=== PATIENT | male | born 1945 | race Caucasian/White ===

== ENCOUNTER → 2019-11-27 10:24 | Outpatient (BNVA) | payer MEDICAID, SELFPAY | PROVIDERS: Family Provider Internal Medicine; Visit Provider Nurse Practitioner Psychiatric/Mental Health | DX: F32.9 Major depressive disorder, single episode, unspecified (principal); G31.09 Other frontotemporal neurocognitive disorder; F02.80 Dementia in other diseases classified elsewhere, unspecified severity, without behavioral disturbance, psychotic disturbance, mood disturbance, and anxiety; J44.9 Chronic obstructive pulmonary disease, unspecified | CPT/HCPCS: 99214 ==

== ENCOUNTER → 2020-03-02 07:57 | Outpatient (BNVA) | payer MEDICAID, SELFPAY | PROVIDERS: Family Provider Internal Medicine; Visit Provider Nurse Practitioner Psychiatric/Mental Health | DX: F32.5 Major depressive disorder, single episode, in full remission (principal); F02.80 Dementia in other diseases classified elsewhere, unspecified severity, without behavioral disturbance, psychotic disturbance, mood disturbance, and anxiety; G31.09 Other frontotemporal neurocognitive disorder | CPT/HCPCS: 99212 ==

== ENCOUNTER 2020-05-11 12:33 | Outpatient (CLI) | payer MEDICAID, SELFPAY ==
--- NOTE | 2020-05-11 12:42 | CT_ITS ---
WS: [id number] CT PELVIS WITH CONTRAST HISTORY: BENIGN PROSTATIC HYPERPLASIA WITHOUT LOWER URINARY TRACT SYMPTOMS. TECHNIQUE: Contiguous imaging is performed of the pelvis with contrast. Coronal and sagittal reformat s are reviewed. All CT scans at [facility] use at least one of these dose optimization te chniques: automated exposure control; mA and/or kV adjustment per patient size (includes targeted exa ms where dose is matched to clinical indication); or iterative reconstruction. DLP: 1602.71 mGycm COMPARISON: 07/08/2016 Lower poles of each kidney are negative for perinephric stranding. Distal ureters are not dilated. Nu merous diverticula in the descending and sigmoid colon without acute inflammation. No free fluid or a denopathy in the pelvis. Prostate gland is mildly enlarged and heterogeneous encroaching into the urinary bladder. Prostate gl and measures 6.0 x 5.2 x 4.9 cm. Other than the encroaching prostate gland no bladder mass is identif ied. There is a large lipoma in the soft tissues of the RIGHT gluteal region. No osteoblastic or oste olytic bone disease. CT/CT pelvis w con* [id number] IMPRESSION: 1. Prostate gland enlargement encroaching into the urinary bladder. 2. No bladder mass. 3. No renal obstruction. 4. Sigmoid diverticulosis without acute diverticulitis.
[2020-05-11 14:22] LABS: Blood Urea Nitrogen 14 mg/dL (8-23)
[2020-05-11] MEDS: iohexol 300 mg/mL 100 mL Btl IV (14:33)
== END 2020-05-11 12:34 | disposition home or self-care (01) ==
LOC: RADWPI 12:38
PROVIDERS: Family Provider Internal Medicine; PCP Internal Medicine; Visit Provider Internal Medicine
DX: N40.0 Benign prostatic hyperplasia without lower urinary tract symptoms (principal); K57.30 Diverticulosis of large intestine without perforation or abscess without bleeding
CPT/HCPCS: 72193; 82565; 84520; Q9967

== ENCOUNTER → 2020-06-01 08:10 | Outpatient (BNVA) | payer MEDICAID, SELFPAY | PROVIDERS: Family Provider Internal Medicine; PCP Internal Medicine; Visit Provider Nurse Practitioner Psychiatric/Mental Health | DX: F02.80 Dementia in other diseases classified elsewhere, unspecified severity, without behavioral disturbance, psychotic disturbance, mood disturbance, and anxiety (principal); G31.09 Other frontotemporal neurocognitive disorder; F32.5 Major depressive disorder, single episode, in full remission | CPT/HCPCS: G0463 ==

== ENCOUNTER 2020-12-08 10:09 | Emergency (ER) | payer MEDICAID, SELFPAY ==
[2020-12-08 10:09] VITALS: BP 163/95; PULSE 71; RESP 18; TEMP 36.7; O2SAT 97; BMI 25.8
--- NOTE | 2020-12-08 10:16 | XR_ITS ---
WS: [id number] Exam: XR chest 1V portable [id number] Date/Time of Exam: 12/08/2020 10:37 AM Reason For Exam: AMS Comparison 01/06/2019. There are patchy ill-defined infiltrates throughout both lungs suggesting pneumonia. Cardiomediastina l structures are unremarkable for portable technique. Bilateral apical pleural thickening. No pleural effusion or pneumothorax. XR/XR chest 1V portable [id number] IMPRESSION: 1. Ill-defined patchy infiltrates throughout both lungs consistent with pneumon ia.
--- NOTE | 2020-12-08 10:16 | CT_ITS ---
WS: [id number] CT HEAD TECHNIQUE: Noncontrast CT of the head obtained from the skullbase to the vertex. CLINICAL INFORMATION: Symptoms of Acute Stroke COMPARISON: None. DLP: 1175.[address] scans at [facility] use at least one of these dose optimization techniques: automat ed exposure control; mA and/or kV adjustment per patient size (includes targeted exams where dose is matched to clinical indication); or iterative reconstruction. FINDINGS: No evidence of intracranial hemorrhage or mass effect. Ventricular system and basal cisterns are lowry nt. Mild small vessel changes with mild parenchymal volume loss. No extra-axial fluid collections. No evidence of mass or mass effect. Normal kelly-white differentiation. Benign basal ganglia calcificati ons. Paranasal sinuses and mastoid air cells are well aerated. .Normal visualized soft tissues. CT/CT head wo con* [id number] IMPRESSION: 1. No evidence of intracranial hemorrhage or mass effect. 2. Mild small vessel changes. Mild parenchymal volume loss. 3. No acute intracranial findings. Notified Jesus Guzman DO at 12/08/2020 10:55 AM.
--- NOTE | 2020-12-08 10:17 | ECG_ITS ---
[facility] Test Date: 2020-12-08 Pat Name: Ben Ochoa Department: Room: Gender: Male Neonatologist: : 1945 Requested By: Jesus Pittman Order Number: [id number] Brennon MD: RASHIDA BARRIGA Measurements Intervals [place] Rate: 69 P: 23 SD: 132 QRS: 11 QRSD: 99 T: 39 QT: 405 QTc: 435 Interpretive Statements SINUS RHYTHM MINIMAL VOLTAGE CRITERIA FOR LVH, CONSIDER NORMAL VARIANT [MEETS CRITERIA IN ONE OF: R(aVL), S(V1), R(V5), R(V5/V6)+S(V1)] Compared to ECG 01/06/2019 10:14:58 Incomplete right bundle-branch block no longer present Electronically Signed On 12-08-2020 20:07:51 SOCIAL SERVICES DIRECTOR by RASHIDA BARRIGA [id number] f
--- NOTE | 2020-12-08 10:21 | W.ED.GENADLT ---
HPI - General Adult General: Chief complaint: General Medical Stated complaint: IRREGULAR HEARTREATE Time Seen by Provider: 12/08/20 10:10 History of Present Illness: HPI narrative: 75-year-old male presents from intermediate with what he describes altered mental status. Some baseline dementia. He has not been as vocal. He had some slurring of speech. Patient denies any specific problems at this time denies any chest pain. Arrival here he is awake alert denies any chest pain or abdominal pain vital signs are normal. long-term paperwork reviewed. Onset (ago): hour(s) Relieving factors: none Exacerbating factors: none Associated symptoms: Reports confusion (Chronic baseline mild dementia); Deny chest pain, cough, diaphoresis, decreased appetite, dyspnea, fevers/chills, headache(s), malaise, nausea, rash, palpitations, seizures, short of breath, syncope, vomiting or weakness Treatments prior to arrival: none Review of Systems Const: Denies: malaise or diaphoresis ENMT: Denies: throat pain, ear or mastoid pain, nasal discharge or nasal congestion Card: Denies: chest pain, palpitations or syncope Resp: Denies: dyspnea GI: Denies: nausea or vomiting : Denies: flank pain, dysuria, urinary frequency or urinary urgency Skin/Breast: Denies: rash Neuro: Reports: confusion (Chronic baseline mild dementia); Denies: headache(s) PFS ED PFSH: Medical History COPD (chronic obstructive pulmonary disease) Dementia of frontal lobe type Major depressive disorder, single episode Major depressive disorder, single episode, in full remission Social History Smoking and tobacco status: never smoked Second hand smoke exposure: No Physical Exam Const: COMMON NORMALS: no acute distress GENERAL APPEARANCE: cooperative and comfortable HENMT: COMMON NORMALS: normocephalic, atraumatic and hearing grossly normal bilaterally HEAD & SCALP: normocephalic and atraumatic Eye: COMMON NORMALS: Equal, round and reactive pupils present, conjunctivae normal and no scleral icterus CONJUNCTIVA: Yes conjunctivae normal PUPIL: Yes Equal, round and reactive pupils present Neck/C-Spine: COMMON NORMALS: full ROM, no lymphadenopathy, supple and no JVD Lymph: LYMPHATIC: no lymphadenopathy noted and no lymphedema noted Resp: COMMON NORMALS: normal respiratory effort, No retractions, No use of accessory muscles and clear to auscultation bilaterally AUSCULTATION: clear to auscultation bilaterally Cardio: COMMON NORMALS: no JVD, regular rate, regular rhythm and No murmurs present (Cardio) RATE: regular rate RHYTHM: regular rhythm GI: COMMON NORMALS: Soft to palpation and No hepatosplenomegaly present AUSCULTATION: Yes normoactive bowel sounds PALPATION: Yes Soft to palpation, No Tenderness to palpation present (GI), No Guarding due to palpation present (GI) and Yes No hepatosplenomegaly present Extremity: COMMON NORMALS: normal to inspection, capillary refill normal, no clubbing, cyanosis or edema, no calf tenderness and no pedal edema Skin: COMMON NORMALS: no rashes or lesions noted GENERAL SKIN EXAM: no rashes or lesions noted Course Vital Signs: Vital signs: Vital Signs Temperature 98.1 F 12/08/20 10:09 Pulse Rate 83 12/08/20 12:25 Respiratory Rate 16 12/08/20 12:25 Blood Pressure 134/88 12/08/20 12:25 Pulse Oximetry 93 12/08/20 12:25 MDM - General Adult MDM Narrative: Medical decision making narrative: Chest x-ray suggestive of pneumonia. Some of it could be residual effect patient actually did have Covid back in July. He does not have a lot of respiratory symptoms at this time will cover him with some antibiotics. His troponins are negative neurologically is intact does not have any localizing findings we will discharge him back to the intermediate with a course of antibiotics. Lab Data: Labs: Lab Results 12/08/20 12/08/20 12/08/20 Range/Units 09:58 09:58 09:58 WBC 6.5 (4.0-10.0) 10^3/ uL RBC 4.92 (4.1-5.3) 10^6/u L Hgb 12.6 (11.7-16.6) g/dL Hct 40.0 L (42.0-52.0) % MCV 81.3 (80-94) fL MCH 25.6 L (28.0-34.0) pg MCHC 31.5 (30.0-36.0) g/dL RDW 13.2 (12.1-15.1) % Plt Count 192 (130-400) 10^3/c mm MPV 11.9 H (7.4-10.4) fL Neut % (Auto) 62.5 % Lymph % (Auto) 22.7 % [place] % (Auto) 12.0 % Eos % (Auto) 1.7 % Baso % (Auto) 0.8 % Neut # (Auto) 4.06 (1.8-7.7) 10^3/u L Lymph # (Auto) 1.5 (0.8-4.8) 10^3/u L [place] # (Auto) 0.8 (0.2-0.9) 10^3/u L Eos # (Auto) 0.1 (0.0-0.8) 10^3/u L Baso # (Auto) 0.1 (0.0-0.1) 10^3/u L Nucleated RBC % (a uto) 0 % Nucleated RBCs # 0.0 /100WBC PT 14.00 (12.1-14.9) SECO NDS INR 1.05 (0.8-1.2) Sodium 136 (136-145) mmol/L Potassium 3.7 (3.5-5.1) mmol/L Chloride 102 (98-107) mmol/L Carbon Dioxide 26 (22-29) mmol/L Anion Gap 11.7 (5-19) BUN 14 (8-23) mg/dL Creatinine 0.8 (0.7-1.2) mg/dL GFR Calculation Not Reportable Glucose 94 (65-115) mg/dL POC Glucose (70-110) mg/dL Calculated Osmolal ity 282 L (285-295) mOsm/k g Calcium 9.0 (8.5-10.5) mg/dL Total Bilirubin 0.3 (0.15-1.2) mg/dL AST 15 (0-40) U/L ALT 12 (0-41) U/L Alkaline Phosphata se 113 (40-130) IU/L Troponin T Baselin e (0-15) ng/L Troponin T 120 Min yocha dehe (0-15) ng/L Delta Troponin T (0-10) ABS# Total Protein 7.2 (6.6-8.7) g/dL Albumin 4.0 (3.5-5.2) g/dL Globulin 3.2 (1.3-4.6) g/dL Lipase 40 (13-60) U/L Urine Color (Yellow) Urine Appearance (CLEAR) Urine pH (5-7) Ur Specific Gravit y (1.005-1.030) Urine Protein (Negative) Urine Glucose (UA) (Normal) Urine Ketones (Negative) Urine Blood (Negative) Urine Nitrate (Negative) Urine Bilirubin (Negative) Urine Urobilinogen (Negative) mg/dL Ur Leukocyte Demetria ase (Negative) Urine RBC (0-2) /hpf Urine WBC (0-5) /hpf Ur Squamous Epith Cells (0-5) /hpf Amorphous Sediment Urine Bacteria (NONE) /hpf Urine Opiates Scre en (Negative) ng/mL Ur Barbiturates Sc reen (Negative) ng/mL Ur Phencyclidine S crn (Negative) ng/mL Ur Amphetamines Sc reen (Negative) ng/mL U Benzodiazepines Scrn (Negative) ng/mL Urine Cocaine Scre en (Negative) ng/mL U Marijuana (THC) Screen (Negative) ng/mL 12/08/20 12/08/20 12/08/20 Range/Units 09:58 10:27 10:33 WBC (4.0-10.0) 10^3/ uL RBC (4.1-5.3) 10^6/u L Hgb (11.7-16.6) g/dL Hct (42.0-52.0) % MCV (80-94) fL MCH (28.0-34.0) pg MCHC (30.0-36.0) g/dL RDW (12.1-15.1) % Plt Count (130-400) 10^3/c mm MPV (7.4-10.4) fL Neut % (Auto) % Lymph % (Auto) % [place] % (Auto) % Eos % (Auto) % Baso % (Auto) % Neut # (Auto) (1.8-7.7) 10^3/u L Lymph # (Auto) (0.8-4.8) 10^3/u L [place] # (Auto) (0.2-0.9) 10^3/u L Eos # (Auto) (0.0-0.8) 10^3/u L Baso # (Auto) (0.0-0.1) 10^3/u L Nucleated RBC % (a uto) % Nucleated RBCs # /100WBC PT (12.1-14.9) SECO NDS INR (0.8-1.2) Sodium (136-145) mmol/L Potassium (3.5-5.1) mmol/L Chloride (98-107) mmol/L Carbon Dioxide (22-29) mmol/L Anion Gap (5-19) BUN (8-23) mg/dL Creatinine (0.7-1.2) mg/dL GFR Calculation Glucose (65-115) mg/dL POC Glucose 106 (70-110) mg/dL Calculated Osmolal ity (285-295) mOsm/k g Calcium (8.5-10.5) mg/dL Total Bilirubin (0.15-1.2) mg/dL AST (0-40) U/L ALT (0-41) U/L Alkaline Phosphata se (40-130) IU/L Troponin T Baselin e 25 H (0-15) ng/L Troponin T 120 Min yocha dehe (0-15) ng/L Delta Troponin T (0-10) ABS# Total Protein (6.6-8.7) g/dL Albumin (3.5-5.2) g/dL Globulin (1.3-4.6) g/dL Lipase (13-60) U/L Urine Color Yellow (Yellow) Urine Appearance Hazy A (CLEAR) Urine pH 6 (5-7) Ur Specific Gravit y 1.010 (1.005-1.030) Urine Protein Neg (Negative) Urine Glucose (UA) Norm (Normal) Urine Ketones Negative (Negative) Urine Blood 2+ H (Negative) Urine Nitrate Negative (Negative) Urine Bilirubin Neg (Negative) Urine Urobilinogen Norm (Negative) mg/dL Ur Leukocyte Demetria ase 2+ H (Negative) Urine RBC 0-4 H (0-2) /hpf Urine WBC 25-40 H (0-5) /hpf Ur Squamous Epith Cells Rare (0-5) /hpf Amorphous Sediment Not Reportable Urine Bacteria Trace (NONE) /hpf Urine Opiates Scre en (Negative) ng/mL Ur Barbiturates Sc reen (Negative) ng/mL Ur Phencyclidine S crn (Negative) ng/mL Ur Amphetamines Sc reen (Negative) ng/mL U Benzodiazepines Scrn (Negative) ng/mL Urine Cocaine Scre en (Negative) ng/mL U Marijuana (THC) Screen (Negative) ng/mL 12/08/20 12/08/20 Range/Units 10:33 12:50 WBC (4.0-10.0) 10^3/ uL RBC (4.1-5.3) 10^6/u L Hgb (11.7-16.6) g/dL Hct (42.0-52.0) % MCV (80-94) fL MCH (28.0-34.0) pg MCHC (30.0-36.0) g/dL RDW (12.1-15.1) % Plt Count (130-400) 10^3/c mm MPV (7.4-10.4) fL Neut % (Auto) % Lymph % (Auto) % [place] % (Auto) % Eos % (Auto) % Baso % (Auto) % Neut # (Auto) (1.8-7.7) 10^3/u L Lymph # (Auto) (0.8-4.8) 10^3/u L [place] # (Auto) (0.2-0.9) 10^3/u L Eos # (Auto) (0.0-0.8) 10^3/u L Baso # (Auto) (0.0-0.1) 10^3/u L Nucleated RBC % (a uto) % Nucleated RBCs # /100WBC PT (12.1-14.9) SECO NDS INR (0.8-1.2) Sodium (136-145) mmol/L Potassium (3.5-5.1) mmol/L Chloride (98-107) mmol/L Carbon Dioxide (22-29) mmol/L Anion Gap (5-19) BUN (8-23) mg/dL Creatinine (0.7-1.2) mg/dL GFR Calculation Glucose (65-115) mg/dL POC Glucose (70-110) mg/dL Calculated Osmolal ity (285-295) mOsm/k g Calcium (8.5-10.5) mg/dL Total Bilirubin (0.15-1.2) mg/dL AST (0-40) U/L ALT (0-41) U/L Alkaline Phosphata se (40-130) IU/L Troponin T Baselin e (0-15) ng/L Troponin T 120 Min yocha dehe 24.32 H (0-15) ng/L Delta Troponin T -0.68 L (0-10) ABS# Total Protein (6.6-8.7) g/dL Albumin (3.5-5.2) g/dL Globulin (1.3-4.6) g/dL Lipase (13-60) U/L Urine Color (Yellow) Urine Appearance (CLEAR) Urine pH (5-7) Ur Specific Gravit y (1.005-1.030) Urine Protein (Negative) Urine Glucose (UA) (Normal) Urine Ketones (Negative) Urine Blood (Negative) Urine Nitrate (Negative) Urine Bilirubin (Negative) Urine Urobilinogen (Negative) mg/dL Ur Leukocyte Demetria ase (Negative) Urine RBC (0-2) /hpf Urine WBC (0-5) /hpf Ur Squamous Epith Cells (0-5) /hpf Amorphous Sediment Urine Bacteria (NONE) /hpf Urine Opiates Scre en Negative (Negative) ng/mL Ur Barbiturates Sc reen Negative (Negative) ng/mL Ur Phencyclidine S crn Negative (Negative) ng/mL Ur Amphetamines Sc reen Negative (Negative) ng/mL U Benzodiazepines Scrn Negative (Negative) ng/mL Urine Cocaine Scre en Negative (Negative) ng/mL U Marijuana (THC) Screen Negative (Negative) ng/mL Discharge Plan Discharge Patient Disposition: Home Clinical Impression: Pneumonia, Dementia of frontal lobe type, COPD (chronic obstructive pulmonary disease) Condition: Stable Prescriptions: New doxycycline hyclate 100 mg capsule 100 mg PO BID 10 Days Qty: 20 RF: 0 Medrol (Ernie) 4 mg tablets,dose pack See Rx Instructions .ROUTE .COMPLEX Qty: 21 RF: 0 albuterol sulfate 90 mcg/actuation HFA aerosol inhaler 2 inh INHALATION Q4H PRN (Reason: shortness of breath or wheezing) Qty: 18 RF: 0 No Action omeprazole 20 mg tablet,delayed release (DR/EC) 20 mg PO DAILY@05 RF: 0 acetaminophen 325 mg capsule 650 mg PO Q4H PRN (Reason: PAIN/FEVER) RF: 0 finasteride 5 mg tablet 5 mg PO DAILY@20 RF: 0 tamsulosin [Flomax] 0.4 mg capsule 0.4 mg PO DAILY@20 RF: 0 bisacodyl 10 mg suppository 10 mg ND DAILY PRN (Reason: Constipation) RF: 0 magnesium hydroxide [Milk of Magnesia] 400 mg/5 mL suspension 30 ml PO DAILY PRN (Reason: Constipation) RF: 0 LiquiTears 1.4 % Drops 3 drp ophthalmic (eye) QID PRN (Reason: Dry Eyes) RF: 0 Edgar Cough Drops 7.6 mg Lozenge 7.6 mg MUCOUS MEMBRANE Q2H PRN (Reason: Cough) RF: 0 Tums 200 mg calcium (500 mg) Tablet,Chewable 1,000 mg PO QID PRN (Reason: Indigestion) RF: 0 Enema Disposable 19-7 gram/118 mL Enema 118 ml ND DAILY PRN (Reason: Constipation) RF: 0 Discharge Orders: Discharge ED (Routine); Ordered 12/08/20 Ordered By: Jesus Guzman Referrals: Dominic Adams DO [Primary Care Provider] - Discharge Diet: Usual diet Discharge Activity: Increase activity as tolerated Patient Instructions: Opioid Safety Activity Restrictions/Additional Instructions: Follow-up with PCP if not improving Coding Level of Care Code ED Health And Wellness Director for Rachelle Buckner
[2020-12-08 10:24] VITALS: PULSE 73; RESP 20; O2SAT 98
[2020-12-08 10:30] LABS: Glucose Point of Care 106 mg/dL (70-110)
[2020-12-08 10:47] LABS: INR 1.05 (0.8-1.2)
[2020-12-08 10:48] LABS: Add Urine Microscopic? YES; Bilirubin Urine Neg (Negative); Blood Urine 2+ (Negative); Glucose Urine UA Norm (Normal); Ketones Urine Negative (Negative); Leukocyte Esterase Urine 2+ (Negative); Nitrate Urine Negative (Negative); Protein Urine Neg (Negative); Urine Appearance Hazy (CLEAR); Urine Color Yellow (Yellow); Urobilinogen Urine Norm (Negative); pH Urine 6 (5-7)
[2020-12-08 10:52] LABS: Basophils # 0.1 10^3/uL (0.0-0.1); Basophils % 0.8 %; Eosinophils # 0.1 10^3/uL (0.0-0.8); Eosinophils % 1.7 %; Hemoglobin 12.6 g/dL (11.7-16.6); Lymphocytes # 1.5 10^3/uL (0.8-4.8); Lymphocytes % 22.7 %; Mean Corpuscular HGB Conc 31.5 g/dL (30.0-36.0); Mean Corpuscular Hemoglobin 25.6 pg (28.0-34.0); Mean Corpuscular Volume 81.3 fL (80-94); Mean Platelet Volume 11.9 fL (7.4-10.4); Monocytes # 0.8 10^3/uL (0.2-0.9); Neutrophils # 4.06 10^3/uL (1.8-7.7); Neutrophils % 62.5 %; Nucleated Red Blood Cells % 0 %; Platelet Count 192 10^3/cmm (130-400); Red Blood Count 4.92 10^6/uL (4.1-5.3); Red Cell Distribution Width 13.2 % (12.1-15.1); White Blood Count 6.5 10^3/uL (4.0-10.0)
[2020-12-08 10:53] LABS: Add Urine Culture? Yes; Amphetamines Screen Urine Negative (Negative); Bacteria Urine TRACE /hpf; Barbiturates Screen Urine Negative (Negative); Benzodiazepines Screen Urine Negative (Negative); Cocaine Screen Urine Negative (Negative); Opiate Screen Urine Negative (Negative); PCP Screen Urine Negative (Negative); RBC Urine 0-4 /hpf (0-2); Squamous Epithelial Cell Urine RARE /hpf (0-5); THC Screen Urine Negative (Negative); WBC Urine 25-40 /hpf (0-5)
[2020-12-08 10:53] LABS: Alanine Aminotransferase 12 U/L (0-41); Alkaline Phosphatase 113 IU/L (40-130); Anion Gap 11.7 (5-19); Aspartate Amino Transferase 15 U/L (0-40); Blood Urea Nitrogen 14 mg/dL (8-23); Carbon Dioxide 26 mmol/L (22-29); Chloride 102 mmol/L (98-107); Globulin 3.2 g/dL (1.3-4.6); Glucose 94 mg/dL (65-115); Lipase 40 U/L (13-60); Osmolality Calculated 282 mOsm/kg (285-295); Potassium 3.7 mmol/L (3.5-5.1); Sodium 136 mmol/L (136-145); Total Bilirubin 0.3 mg/dL (0.15-1.2); Total Protein 7.2 g/dL (6.6-8.7)
[2020-12-08 11:12] LABS: Troponin(5th) Baseline 25 ng/L (0-15)
--- NOTE | 2020-12-08 12:17 | ECG_ITS ---
[facility] Test Date: 2020-12-08 Pat Name: Ben Ochoa Department: Room: Gender: Male Curriculum Development Manager: : 1945 Requested By: Jesus Pittman Order Number: [id number] Reading MD: RASHIDA BARRIGA Measurements Intervals [place] Rate: 76 P: 12 MT: 159 QRS: 21 QRSD: 101 T: 58 QT: 402 QTc: 454 Interpretive Statements SINUS RHYTHM WITH FREQUENT VENTRICULAR PREMATURE COMPLEXES ABNORMAL RHYTHM ECG Compared to ECG 12/08/2020 10:14:26 Ventricular premature complex(es) now present Electronically Signed On 12-08-2020 20:08:50 ROUTE CARRIER by RASHIDA BARRIGA [id number]
[2020-12-08 12:25] VITALS: BP 134/88; PULSE 83; RESP 16; O2SAT 93
[2020-12-08 13:21] LABS: Troponin 5 2HR 24.32 ng/L (0-15)
[2020-12-08 13:22] LABS: Troponin 5 2HR Delta -0.68 ABS# (0-10)
[2020-12-08 14:26] VITALS: BP 155/98; PULSE 72; RESP 18
== END 2020-12-08 14:26 | disposition home or self-care (01) ==
PROVIDERS: Emergency Provider Family Medicine; PCP Internal Medicine
DX: J44.0 Chronic obstructive pulmonary disease with (acute) lower respiratory infection (principal); J18.9 Pneumonia, unspecified organism; G31.09 Other frontotemporal neurocognitive disorder; F02.80 Dementia in other diseases classified elsewhere, unspecified severity, without behavioral disturbance, psychotic disturbance, mood disturbance, and anxiety
CPT/HCPCS: 36415; 36416; 70450; 71045; 80053; 80306; 81001; 82962; 83690; 84484; 85025; 85610; 87077; 87086; 87186; 93005; 99283

== ENCOUNTER 2020-12-17 02:48 | Emergency (ER) | payer MEDICAID, SELFPAY ==
[2020-12-17 02:50] VITALS: BP 155/89; PULSE 66; RESP 18; TEMP 36.6; O2SAT 97; BMI 26.2
--- NOTE | 2020-12-17 02:52 | ED_ITS ---
HPI - Fall General: Chief Complaint: Fall Stated Complaint: fall Time Seen by Provider: 12/17/20 02:51 Source: patient and EMS Mode of arrival: EMS Limitations: no limitations History of Present Illness: HPI Narrative: 75-year-old male who is here from local custodial. Patient was up out of bed and had a fall. He hit the right side of his head. He states he does have a headache he rates 2 out of 10. Denies any pain elsewhere and denies neck pain. He does have a history of dementia and custodial staff state that he is slightly confused but here he is able answer all my questions appropriately. He does have some slight slurred speech but custodial states that his normal for him. Denies any worsening. Patient has no other complaints at this time. Associated symptoms-after fall: Denies abdominal pain, chest pain, headache(s) or neck pain Review of Systems Const: Denies: fever(s), chills, body aches or change in appetite Eyes: Denies: blurry vision or eye discomfort ENMT: Denies: throat pain or dental pain Card: Denies: chest pain Resp: Denies: dyspnea GI: Denies: abdominal pain, nausea, vomiting or diarrhea : Denies: dysuria Musc: Denies: neck pain or back pain Skin/Breast: Denies: rash Neuro: Denies: headache(s) Psych: Denies: depression Aiden/Lymph: Denies: easy bruising All/Imm: Denies: urticaria PFSH ED PFSH: Medical History COPD (chronic obstructive pulmonary disease) Dementia of frontal lobe type Major depressive disorder, single episode Major depressive disorder, single episode, in full remission Social History Smoking and tobacco status: never smoked Second hand smoke exposure: No Physical Exam Const: COMMON NORMALS: no acute distress, patient oriented x3 and healthy appearing HENMT: COMMON NORMALS: normocephalic HEAD & SCALP: normocephalic OTHER: contusion to right side of head Eye: COMMON NORMALS: Equal, round and reactive pupils present and EOMs intact bilaterally PUPIL: Yes Equal, round and reactive pupils present Neck/C-Spine: COMMON NORMALS: full ROM and supple Chest: COMMONS NORMALS: normal inspection of the chest and normal palpation of entire chest wall Resp: COMMON NORMALS: normal respiratory effort, No retractions, No use of accessory muscles and clear to auscultation bilaterally AUSCULTATION: clear to auscultation bilaterally Cardio: COMMON NORMALS: regular rate, regular rhythm and No murmurs present (Cardio) RATE: regular rate RHYTHM: regular rhythm GI: COMMON NORMALS: Normal to inspection, nondistended, normoactive bowel sounds present, Soft to palpation, non-tender and no masses PALPATION: Yes Soft to palpation Extremity: COMMON NORMALS: normal to inspection and full ROM Neuro: COMMON NORMALS: patient oriented x3, moves all extremities and no focal motor deficits Psych: COMMON NORMALS: mental status grossly normal, Normal thought process present and cooperative THOUGHT PROCESS: Normal thought process present Skin: COMMON NORMALS: no rashes or lesions noted and no wounds GENERAL SKIN EXAM: no rashes or lesions noted Course Vital Signs: Vital signs: Vital Signs Temperature 97.9 F 12/17/20 02:50 Pulse Rate 66 12/17/20 02:50 Respiratory Rate 18 12/17/20 02:50 Blood Pressure 155/89 12/17/20 02:50 Pulse Oximetry 97 12/17/20 02:50 MDM - Fall MDM Narrative: Medical decision making narrative: Patient presents with a fall and a closed head injury. Patient's been well-appearing here is no focal deficits. His head CT and blood work are all normal. He is stable for discharge back to the custodial. Lab Data: Labs: Lab Results 12/17/20 12/17/20 Range/Units 02:54 02:54 WBC 9.9 (4.0-10.0) 10^3/ uL RBC 5.61 H (4.1-5.3) 10^6/u L Hgb 14.1 (11.7-16.6) g/dL Hct 45.9 (42.0-52.0) % MCV 81.8 (80-94) fL MCH 25.1 L (28.0-34.0) pg MCHC 30.7 (30.0-36.0) g/dL RDW 13.8 (12.1-15.1) % Plt Count 221 (130-400) 10^3/c mm MPV 11.0 H (7.4-10.4) fL Neut % (Auto) 67.6 % Lymph % (Auto) 17.4 % [place] % (Auto) 11.8 % Eos % (Auto) 1.5 % Baso % (Auto) 0.7 % Neut # (Auto) 6.66 (1.8-7.7) 10^3/u L Lymph # (Auto) 1.7 (0.8-4.8) 10^3/u L [place] # (Auto) 1.2 H (0.2-0.9) 10^3/u L Eos # (Auto) 0.2 (0.0-0.8) 10^3/u L Baso # (Auto) 0.1 (0.0-0.1) 10^3/u L Nucleated RBC % (a uto) 0 % Nucleated RBCs # 0.0 /100WBC Sodium 140 (136-145) mmol/L Potassium 4.2 (3.5-5.1) mmol/L Chloride 103 (98-107) mmol/L Carbon Dioxide 27 (22-29) mmol/L Anion Gap 14.2 (5-19) BUN 23 (8-23) mg/dL Creatinine 0.9 (0.7-1.2) mg/dL GFR Calculation Not Reportable Glucose 107 (65-115) mg/dL Calculated Osmolal ity 294 (285-295) mOsm/k g Calcium 8.6 (8.5-10.5) mg/dL Total Bilirubin 0.2 (0.15-1.2) mg/dL AST 11 (0-40) U/L ALT 18 (0-41) U/L Alkaline Phosphata se 98 (40-130) IU/L Total Protein 7.1 (6.6-8.7) g/dL Albumin 3.9 (3.5-5.2) g/dL Globulin 3.2 (1.3-4.6) g/dL Imaging Data^: CT Head: Attestation: I personally reviewed and interpreted this imaging study as follows: Radiologist's impression: [address] [address] [address] Scan Report Signed Patient: Ben Ochoa Unit #: [id number] : 1945 Age/Sex: 75 / M ADM Date: 12/17/20 Loc: ER Room/Bed: Attending Dr: Ordering Provider/Ordering MD: Cherise Gonzales MD Date of Service: 12/17/20 Procedure(s): CT head wo con* [id number] Accession Number(s): [id number] Report Number: [id number] PROCEDURE INFORMATION: Exam: CT Head Without Contrast Exam date and time: 12/17/2020 2:53 AM Age: 75 years old Clinical indication: Injury or trauma; Blunt trauma (contusions or hematomas); Patient HX: Fall at custodial. Abrasion to right temporal region. Patient has severe kyphosis. Best positioning obtained. TECHNIQUE: Imaging protocol: Computed tomography of the head without contrast. Radiation optimization: All CT scans at this facility use at least one of these dose optimization techniques: automated exposure control; mA and/or kV adjustment per patient size (includes targeted exams where dose is matched to clinical indication); or iterative reconstruction. 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 Patchy areas of hypoattenuation seen in the deep white matter of the cerebral hemispheres bilaterally compatible with mild deep white matter microvascular disease. Cerebral ventricles: No ventriculomegaly. Bones/joints: Unremarkable. No acute fracture. Paranasal sinuses: Visualized sinuses are unremarkable. No fluid levels. Mastoid air cells: Visualized mastoid air cells are well aerated. Soft tissues: Unremarkable. CT/CT head wo con* [id number] IMPRESSION: There are no acute intracranial findings. EKG Data^: EKG 1: Attestation: I personally reviewed and interpreted this EKG as follows: EKG interpretation date: 12/17/20 EKG interpretation time: 02:58 Interpretation: nsr hr [address] or t wave abnormalities qrs 111 qtc 412 Discharge Plan Discharge Patient Disposition: Home Clinical Impression: Closed head injury Qualifiers: Encounter type: initial encounter Qualified Code(s): S09.90XA - Unspecified injury of head, initial encounter Fall Qualifiers: Encounter type: initial encounter Qualified Code(s): W19.XXXA - Unspecified fall, initial encounter Condition: Stable Prescriptions: No Action omeprazole 20 mg tablet,delayed release (DR/EC) 20 mg PO DAILY@05 RF: 0 acetaminophen 325 mg capsule 650 mg PO Q4H PRN (Reason: PAIN/FEVER) RF: 0 finasteride 5 mg tablet 5 mg PO DAILY@20 RF: 0 tamsulosin [Flomax] 0.4 mg capsule 0.4 mg PO DAILY@20 RF: 0 bisacodyl 10 mg suppository 10 mg VT DAILY PRN (Reason: Constipation) RF: 0 magnesium hydroxide [Milk of Magnesia] 400 mg/5 mL suspension 30 ml PO DAILY PRN (Reason: Constipation) RF: 0 LiquiTears 1.4 % Drops 3 drp ophthalmic (eye) QID PRN (Reason: Dry Eyes) RF: 0 Staples Cough Drops 7.6 mg Lozenge 7.6 mg MUCOUS MEMBRANE Q2H PRN (Reason: Cough) RF: 0 Tums 200 mg calcium (500 mg) Tablet,Chewable 1,000 mg PO QID PRN (Reason: Indigestion) RF: 0 Enema Disposable 19-7 gram/118 mL Enema 118 ml VT DAILY PRN (Reason: Constipation) RF: 0 doxycycline hyclate 100 mg capsule 100 mg PO BID 10 Days Qty: 20 RF: 0 Medrol (Ernie) 4 mg tablets,dose pack See Rx Instructions .ROUTE .COMPLEX Qty: 21 RF: 0 albuterol sulfate 90 mcg/actuation HFA aerosol inhaler 2 inh INHALATION Q4H PRN (Reason: shortness of breath or wheezing) Qty: 18 RF: 0 Discharge Orders: Discharge ED (Routine); Ordered 12/17/20 Ordered By: Cherise Gonzales Referrals: Dominic Adams DO [Primary Care Provider] - Discharge Diet: Advance as tolerated Discharge Activity: Resume usual activity Patient Instructions: Minor Head Injury (ED) Coding Level of Care Code ED Sample Patternmaker for Chg Fwd Exam Comprehensive
--- NOTE | 2020-12-17 02:52 | ECG_ITS ---
[facility] Test Date: 2020-12-17 Pat Name: Ben Ochoa Department: Room: Gender: Male Certified Pharmacy Technician: : 1945 Requested By: Cherise Gonzales Order Number: [id number] Brennon MD: Paulino Rodriguez M.D. Measurements Intervals [place] Rate: 78 P: 12 [place]: 164 QRS: 29 QRSD: 113 T: 70 QT: 378 QTc: 433 Interpretive Statements SINUS RHYTHM WITH FREQUENT VENTRICULAR PREMATURE COMPLEXES POSSIBLE RIGHT VENTRICULAR CONDUCTION DELAY [RSR (QR) IN V1/V2] Compared to ECG 12/08/2020 12:14:28 No significant changes Electronically Signed On 12-17-2020 18:54:28 [employer]CH[employer] by Paulino Rodriguez M.D. [email or web address]/store/[id number] f
[2020-12-17 02:58] LABS: Basophils # 0.1 10^3/uL (0.0-0.1); Basophils % 0.7 %; Eosinophils # 0.2 10^3/uL (0.0-0.8); Eosinophils % 1.5 %; Hematocrit 45.9 % (42.0-52.0); Hemoglobin 14.1 g/dL (11.7-16.6); Lymphocytes # 1.7 10^3/uL (0.8-4.8); Lymphocytes % 17.4 %; Mean Corpuscular HGB Conc 30.7 g/dL (30.0-36.0); Mean Corpuscular Hemoglobin 25.1 pg (28.0-34.0); Mean Corpuscular Volume 81.8 fL (80-94); Monocytes # 1.2 10^3/uL (0.2-0.9); Monocytes % 11.8 %; Neutrophils # 6.66 10^3/uL (1.8-7.7); Neutrophils % 67.6 %; Nucleated Red Blood Cells % 0 %; Platelet Count 221 10^3/cmm (130-400); Red Blood Count 5.61 10^6/uL (4.1-5.3); Red Cell Distribution Width 13.8 % (12.1-15.1); White Blood Count 9.9 10^3/uL (4.0-10.0)
[2020-12-17 03:22] LABS: Alanine Aminotransferase 18 U/L (0-41); Albumin Level 3.9 g/dL (3.5-5.2); Alkaline Phosphatase 98 IU/L (40-130); Anion Gap 14.2 (5-19); Aspartate Amino Transferase 11 U/L (0-40); Blood Urea Nitrogen 23 mg/dL (8-23); Calcium 8.6 mg/dL (8.5-10.5); Carbon Dioxide 27 mmol/L (22-29); Chloride 103 mmol/L (98-107); Globulin 3.2 g/dL (1.3-4.6); Glucose 107 mg/dL (65-115); Osmolality Calculated 294 mOsm/kg (285-295); Potassium 4.2 mmol/L (3.5-5.1); Sodium 140 mmol/L (136-145); Total Bilirubin 0.2 mg/dL (0.15-1.2); Total Protein 7.1 g/dL (6.6-8.7)
[2020-12-17 03:45] VITALS: BP 158/92; PULSE 80; RESP 18; O2SAT 96
[2020-12-17 04:24] VITALS: BP 153/85; PULSE 82; RESP 18; O2SAT 99
--- NOTE | 2020-12-17 04:32 | PC.NURSE ---
report called to shelter at this time.
[2020-12-17 04:57] VITALS: BP 151/95; PULSE 81; RESP 18; O2SAT 98
[2020-12-17 05:56] VITALS: BP 151/97; PULSE 84; RESP 18; O2SAT 97
== END 2020-12-17 05:58 | disposition home or self-care (01) ==
PROVIDERS: Emergency Provider Emergency Medicine; PCP Internal Medicine
DX: S09.8XXA Other specified injuries of head, initial encounter (principal); J44.9 Chronic obstructive pulmonary disease, unspecified; G31.09 Other frontotemporal neurocognitive disorder; F02.80 Dementia in other diseases classified elsewhere, unspecified severity, without behavioral disturbance, psychotic disturbance, mood disturbance, and anxiety; W19.XXXA Unspecified fall, initial encounter
CPT/HCPCS: 70450; 80053; 85025; 93005; 99283

== ENCOUNTER 2021-01-25 06:54 | Outpatient (CLI) | payer MEDICAID, SELFPAY ==
--- NOTE | 2021-01-25 07:15 | USCV_ITS ---
Ben Ochoa Age: 75 Gender: M : 1945 Exam Date: 01/25/2021 07:17 Ordering Phys: Ruma Santiago MD ([email or web address]) Technologist: Rosemary Boudreaux Exam Location: [facility] [place] Indication: VENT PREMATURE DEPOLARIZATION BP: 155 / 77 HR: 91 Rhythm: Sinus Technical Quality: Technically difficult study MEASUREMENTS (Male / Female) Normal Values 2D ECHO LV Diastolic Diameter PLAX 4.8 cm 4.2 - 5.9 / 3.9 - 5.3 cm LV Systolic Diameter PLAX 3.9 cm IVS Diastolic Thickness 1.2 cm 0.6 - 1.0 / 0.6 - 0.9 cm IVS Systolic Thickness 1.3 cm LVPW Diastolic Thickness 0.9 cm 0.6 - 1.0 / 0.6 - 0.9 cm LVPW Systolic Thickness 1.0 cm LVOT Diameter 2.0 cm LV Ejection Fraction 2D Teich 39.9 % LV Ejection Fraction MOD 2C 36.5 % LV Ejection Fraction 2C AL 39.3 % LA Diameter 2.7 cm LA Width 3.3 cm LA Height 5.0 cm RA Width 2.2 cm RA Height 4.8 cm Aorta at Sinotubular Diameter 2.1 cm M-MODE LV Diastolic Diameter MM 4.9 cm 4.2 - 5.9 / 3.9 - 5.3 cm LV Systolic Diameter MM 4.0 cm LV Ejection Fraction MM Teich 37.7 % IVS Diastolic Thickness MM 0.7 cm 0.6 - 1.0 / 0.6 - 0.9 cm IVS Systolic Thickness MM 0.7 cm LVPW Diastolic Thickness MM 0.8 cm 0.6 - 1.0 / 0.6 - 0.9 cm LVPW Systolic Thickness MM 1.2 cm RV Diastolic Diameter MM 1.3 cm Aortic Annulus Diameter 3.1 cm LA Ao Ratio MM 1.1 MV E Point Septal Separation 1.7 cm DOPPLER AV Peak Velocity 97.0 cm/s LVOT Peak Velocity 77.0 cm/s AV Area Cont Eq vti 3.1 cm squared AV Area Cont Eq pk 2.5 cm squared MV Area PHT 9.2 cm squared Mitral E to A Ratio 2.5 MV E' Velocity 48.0 cm/s Mitral E to MV E' Ratio 12.7 Mitral E to LV E' Lateral Ratio 13.4 Mitral E to LV E' Septal Ratio 12.0 TV Peak E Velocity 46.0 cm/s Right Atrial Pressure 8.0 mmHg PV Peak Velocity 54.0 cm/s RV Acceleration Time 0.1 s RV Ejection Time 0.3 s RV AcT/ET 0.4 FINDINGS Left Ventricle Normal left ventricular cavity size. Normal left ventricular wall thickness. Mildly to moderately decreased left ventricle systolic function. This study is inadequate for estimation of regional wall motion abnormality. Grade III diastolic dysfunction (restrictive filling pattern), severely elevated filling pressures. Right Ventricle Probably normal right ventricular size and systolic function. Right Atrium Normal right atrial size. Left Atrium Mildly increased left atrial size. Mitral Valve Thickened mitral valve. Trace mitral valve regurgitation. Aortic Valve Probably trileaflet aortic valve. No aortic valve stenosis. No aortic valve regurgitation. Tricuspid Valve Structurally normal tricuspid valve. Trace tricuspid valve regurgitation. Pulmonic Valve Pulmonic valve not well visualized. Pericardium Trivial pericardial effusion. Aorta CONCLUSIONS 1. This is a technically very difficult study. 2. Normal left ventricular cavity size. Mildly to moderately decreased left ventricle systolic function. This study is inadequate for estimation of regional wall motion abnormality. Grade III diastolic dysfunction (restrictive filling pattern), severely elevated filling pressures. 3. Probably normal right ventricular size and systolic function. 4. No prior similar studies to compare. Ruma Santiago MD (Electronically Signed) Final Date: 29 January 2021 14:51 S
== END 2021-01-25 06:55 | disposition home or self-care (01) ==
LOC: RAD 06:56
PROVIDERS: PCP Internal Medicine; Visit Provider Internal Medicine Cardiovascular Disease
DX: I49.3 Ventricular premature depolarization (principal)
CPT/HCPCS: 93306

== ENCOUNTER 2021-01-26 15:19 | Inpatient (IN) | payer MEDICAID, SELFPAY ==
[2021-01-26 15:19] VITALS: BP 153/90; PULSE 118; RESP 18; O2SAT 95; BMI 25.8
--- NOTE | 2021-01-26 15:29 | ECG_ITS ---
[facility] Test Date: 2021-01-26 Pat Name: Ben Ochoa Department: Room: 279 Gender: Male Stick Roller: : 1945 Requested By: Giancarlo Sands Order Number: [id number] Brennon MD: Dedrick Gaona M.D. Measurements Intervals [place] Rate: 108 P: 34 [place]: 172 QRS: 34 QRSD: 110 T: 53 QT: 328 QTc: 440 Interpretive Statements SINUS TACHYCARDIA POSSIBLE RIGHT VENTRICULAR CONDUCTION DELAY [RSR (QR) IN V1/V2] ABNORMAL RHYTHM ECG Compared to ECG 12/17/2020 02:58:29 Sinus rhythm no longer present Ventricular premature complex(es) no longer present Electronically Signed On 01-26-2021 23:58:58 CDT by Dedrick Gaona M.D. [id number] [email or web address]
--- NOTE | 2021-01-26 15:31 | ED_ITS ---
Documented by User: BRANDAN Dominguez 01/26/21 16:52 HPI - Male Genitourinary General: Chief complaint: Urogenital-Male Stated complaint: BLOODY URINE Time Seen by Provider: 01/26/21 15:29 History of Present Illness: HPI Narrative: [facility] with complaints of hematuria. Patient states he was peeing fine earlier today but had some blood not he does have a little difficulty peeing. Denies any other problems. MD Complaint: other (Hematuria) Onset (ago): hour(s) Duration: intermittent and progressively worsening Severity: mild Associated symptoms: Reports no associated symptoms, dysuria and hematuria; Deny nausea or vomiting Review of Systems Const: Denies: fever(s), chills or body aches Eyes: Denies: change in vision or blurry vision ENMT: Denies: throat pain or nasal congestion Card: Denies: chest pain or dyspnea on exertion Resp: Denies: dyspnea, productive cough or non-productive cough GI: Denies: abdominal pain, nausea or vomiting : Reports: dysuria, urinary frequency, difficulty starting urination and hematuria; Denies: difficulty urinating Musc: Denies: extremity pain Skin/Breast: Reports: other (Skin dry around corner of mouth); Denies: rash Neuro: Reports: other (Hard to understand his speech at times but he is very coherent); Denies: headache(s) Psych: Denies: anxiety or depression Aiden/Lymph: Denies: easy bruising PFSH ED PFSH: Medical History COPD (chronic obstructive pulmonary disease) Dementia of frontal lobe type History of 2019 novel coronavirus disease (COVID-19) Major depressive disorder, single episode Major depressive disorder, single episode, in full remission Ventricular premature beats Surgical History History of thoracentesis Chronic right pleural effusion which needed Donaldo drain which was removed by Dr. Hoover 2016 PEG (percutaneous endoscopic gastrostomy) status Family History Father Cancer Grandfather Myocardial infarction Other CAD (coronary artery disease) Social History Smoking and tobacco status: never smoked Second hand smoke exposure: No Alcohol intake: never Physical Exam Const: COMMON NORMALS: no acute distress GI: AUSCULTATION: Yes Hypoactive bowel sounds present PALPATION: Yes Tenderness to palpation present (GI) (Suprapubic) : COMMON NORMALS: Yes no CVA tenderness BLADDER/KIDNEY EXAM: Yes no CVA tenderness PENIS: normal penis and other (There is blood in his adult depends) Back/Pelvis: COMMON NORMALS: no CVA tenderness Psych: COMMON NORMALS: mental status grossly normal Course Vital Signs: Vital signs: Vital Signs Temperature 98.3 F 01/27/21 00:14 Pulse Rate 100 01/27/21 00:14 Respiratory Rate 17 01/27/21 00:14 Blood Pressure 122/71 01/27/21 00:14 Pulse Oximetry 95 01/27/21 00:14 MDM - Male Lab Data: Labs: Lab Results 01/26/21 01/26/21 01/26/21 Range/Units 16:25 16:40 16:40 WBC 11.7 H (4.0-10.0) 10^3/ uL RBC 5.62 H (4.1-5.3) 10^6/u L Hgb 14.2 (11.7-16.6) g/dL Hct 45.8 (42.0-52.0) % MCV 81.5 (80-94) fL MCH 25.3 L (28.0-34.0) pg MCHC 31.0 (30.0-36.0) g/dL RDW 14.6 (12.1-15.1) % Plt Count 324 (130-400) 10^3/c mm MPV 11.3 H (7.4-10.4) fL Neut % (Auto) 79.3 % Lymph % (Auto) 9.3 % [place] % (Auto) 9.5 % Eos % (Auto) 0.8 % Baso % (Auto) 0.8 % Neut # (Auto) 9.25 H (1.8-7.7) 10^3/u L Lymph # (Auto) 1.1 (0.8-4.8) 10^3/u L [place] # (Auto) 1.1 H (0.2-0.9) 10^3/u L Eos # (Auto) 0.1 (0.0-0.8) 10^3/u L Baso # (Auto) 0.1 (0.0-0.1) 10^3/u L Nucleated RBC % (a uto) 0 % Nucleated RBCs # 0.0 /100WBC Sodium 137 (136-145) mmol/L Potassium 3.9 (3.5-5.1) mmol/L Chloride 99 (98-107) mmol/L Carbon Dioxide 26 (22-29) mmol/L Anion Gap 15.9 (5-19) BUN 30 H (8-23) mg/dL Creatinine 1.2 (0.7-1.2) mg/dL GFR Calculation Not Reportable Glucose 122 H (65-115) mg/dL Calculated Osmolal ity 291 (285-295) mOsm/k g Lactic Acid (0.5-2.2) mmol/L Calcium 9.3 (8.5-10.5) mg/dL Total Bilirubin 0.4 (0.15-1.2) mg/dL AST 13 (0-40) U/L ALT 11 (0-41) U/L Alkaline Phosphata se 144 H (40-130) IU/L Total Protein 8.1 (6.6-8.7) g/dL Albumin 3.9 (3.5-5.2) g/dL Globulin 4.2 (1.3-4.6) g/dL Urine Color Yellow (Yellow) Urine Appearance Cloudy (CLEAR) Urine pH 8 H (5-7) Ur Specific Gravit y 1.015 (1.005-1.030) Urine Protein 2+ H (Negative) Urine Glucose (UA) Norm (Normal) Urine Ketones Negative (Negative) Urine Blood 3+ H (Negative) Urine Nitrate Negative (Negative) Urine Bilirubin Neg (Negative) Prot Sulfosalicyli c Acd Negative (Negative) Urine Urobilinogen Norm (Negative) mg/dL Ur Leukocyte Demetria ase 2+ H (Negative) Urine RBC 25-40 H (0-2) /hpf Urine WBC >100 H (0-5) /hpf Ur Squamous Epith Cells 0-4 H (0-5) /hpf Triple Phos Tasneem ls 15-25 H /hpf Amorphous Sediment Not Reportable Urine Bacteria 4+ H (NONE) /hpf Urine Mucus 1+ /hpf 01/26/21 Range/Units 16:45 WBC (4.0-10.0) 10^3/ uL RBC (4.1-5.3) 10^6/u L Hgb (11.7-16.6) g/dL Hct (42.0-52.0) % MCV (80-94) fL MCH (28.0-34.0) pg MCHC (30.0-36.0) g/dL RDW (12.1-15.1) % Plt Count (130-400) 10^3/c mm MPV (7.4-10.4) fL Neut % (Auto) % Lymph % (Auto) % [place] % (Auto) % Eos % (Auto) % Baso % (Auto) % Neut # (Auto) (1.8-7.7) 10^3/u L Lymph # (Auto) (0.8-4.8) 10^3/u L [place] # (Auto) (0.2-0.9) 10^3/u L Eos # (Auto) (0.0-0.8) 10^3/u L Baso # (Auto) (0.0-0.1) 10^3/u L Nucleated RBC % (a uto) % Nucleated RBCs # /100WBC Sodium (136-145) mmol/L Potassium (3.5-5.1) mmol/L Chloride (98-107) mmol/L Carbon Dioxide (22-29) mmol/L Anion Gap (5-19) BUN (8-23) mg/dL Creatinine (0.7-1.2) mg/dL GFR Calculation Glucose (65-115) mg/dL Calculated Osmolal ity (285-295) mOsm/k g Lactic Acid 1.7 (0.5-2.2) mmol/L Calcium (8.5-10.5) mg/dL Total Bilirubin (0.15-1.2) mg/dL AST (0-40) U/L ALT (0-41) U/L Alkaline Phosphata se (40-130) IU/L Total Protein (6.6-8.7) g/dL Albumin (3.5-5.2) g/dL Globulin (1.3-4.6) g/dL Urine Color (Yellow) Urine Appearance (CLEAR) Urine pH (5-7) Ur Specific Gravit y (1.005-1.030) Urine Protein (Negative) Urine Glucose (UA) (Normal) Urine Ketones (Negative) Urine Blood (Negative) Urine Nitrate (Negative) Urine Bilirubin (Negative) Prot Sulfosalicyli c Acd (Negative) Urine Urobilinogen (Negative) mg/dL Ur Leukocyte Demetria ase (Negative) Urine RBC (0-2) /hpf Urine WBC (0-5) /hpf Ur Squamous Epith Cells (0-5) /hpf Triple Phos Tasneem ls /hpf Amorphous Sediment Urine Bacteria (NONE) /hpf Urine Mucus /hpf Discharge Plan Discharge Admit Provider: Song Jones Sign Out Sign Out Data: Patient Sign Out occurred on 01/26/21 at 17:01. Patient's care was discussed, and care was transferred from to PABLO Springer. Coding Level of Care Code ED Waxer Floor for Chg Fwd Exam Expanded Problem Focused Documented by User: PABLO Springer 01/27/21 02:25 HPI - Male Genitourinary General: Chief complaint: Urogenital-Male Stated complaint: BLOODY URINE Time Seen by Provider: 01/26/21 15:29 History of Present Illness: HPI Narrative: Patient is a resident at [facility]. Patient has past medical history of dementia and COPD. Patient's is present in room and says that he has had problems with urinary retention in the past. PFSH ED PFSH: Medical History COPD (chronic obstructive pulmonary disease) Dementia of frontal lobe type History of 2019 novel coronavirus disease (COVID-19) Major depressive disorder, single episode Major depressive disorder, single episode, in full remission Ventricular premature beats Surgical History History of thoracentesis Chronic right pleural effusion which needed Graham drain which was removed by Dr. Hoover 2016 PEG (percutaneous endoscopic gastrostomy) status Family History Father Cancer Grandfather Myocardial infarction Other CAD (coronary artery disease) Social History Smoking and tobacco status: never smoked Second hand smoke exposure: No Alcohol intake: never Course Consultations: Consultation #1: I called Dr. Jones and told about patient case. He wanted patient put on observation. Time: 20:20 Vital Signs: Vital signs: Vital Signs Temperature 98.3 F 01/27/21 00:14 Pulse Rate 100 01/27/21 00:14 Respiratory Rate 17 01/27/21 00:14 Blood Pressure 122/71 01/27/21 00:14 Pulse Oximetry 95 01/27/21 00:14 MDM - Male MDM Narrative: Medical decision making narrative: Patient is a 75-year-old male from [facility] who comes to the ED with blood in the urine and trouble urinating. Patient has a past medical history of dementia, COPD and BPH. patient had some suprapubic tenderness. Madrigal catheter was placed and bright red blood was drained into Madrigal cath bag. Vital stable. White blood cell count 11.7 rest of CBC and CMP were unremarkable. UA indicated UTI present. CT of abdomen showed cystitis and right pyelitis. Patient was given some IV fluids and Rocephin while here in the ED. I contacted Dr. Jones told about patient case and he agreed to bring patient into the hospital on observation. Lab Data: Attestation: I reviewed the patient's lab results. Labs: Lab Results 01/26/21 01/26/21 01/26/21 Range/Units 16:25 16:40 16:40 WBC 11.7 H (4.0-10.0) 10^3/ uL RBC 5.62 H (4.1-5.3) 10^6/u L Hgb 14.2 (11.7-16.6) g/dL Hct 45.8 (42.0-52.0) % MCV 81.5 (80-94) fL MCH 25.3 L (28.0-34.0) pg MCHC 31.0 (30.0-36.0) g/dL RDW 14.6 (12.1-15.1) % Plt Count 324 (130-400) 10^3/c mm MPV 11.3 H (7.4-10.4) fL Neut % (Auto) 79.3 % Lymph % (Auto) 9.3 % [place] % (Auto) 9.5 % Eos % (Auto) 0.8 % Baso % (Auto) 0.8 % Neut # (Auto) 9.25 H (1.8-7.7) 10^3/u L Lymph # (Auto) 1.1 (0.8-4.8) 10^3/u L [place] # (Auto) 1.1 H (0.2-0.9) 10^3/u L Eos # (Auto) 0.1 (0.0-0.8) 10^3/u L Baso # (Auto) 0.1 (0.0-0.1) 10^3/u L Nucleated RBC % (a uto) 0 % Nucleated RBCs # 0.0 /100WBC Sodium 137 (136-145) mmol/L Potassium 3.9 (3.5-5.1) mmol/L Chloride 99 (98-107) mmol/L Carbon Dioxide 26 (22-29) mmol/L Anion Gap 15.9 (5-19) BUN 30 H (8-23) mg/dL Creatinine 1.2 (0.7-1.2) mg/dL GFR Calculation Not Reportable Glucose 122 H (65-115) mg/dL Calculated Osmolal ity 291 (285-295) mOsm/k g Lactic Acid (0.5-2.2) mmol/L Calcium 9.3 (8.5-10.5) mg/dL Total Bilirubin 0.4 (0.15-1.2) mg/dL AST 13 (0-40) U/L ALT 11 (0-41) U/L Alkaline Phosphata se 144 H (40-130) IU/L Total Protein 8.1 (6.6-8.7) g/dL Albumin 3.9 (3.5-5.2) g/dL Globulin 4.2 (1.3-4.6) g/dL Urine Color Yellow (Yellow) Urine Appearance Cloudy (CLEAR) Urine pH 8 H (5-7) Ur Specific Gravit y 1.015 (1.005-1.030) Urine Protein 2+ H (Negative) Urine Glucose (UA) Norm (Normal) Urine Ketones Negative (Negative) Urine Blood 3+ H (Negative) Urine Nitrate Negative (Negative) Urine Bilirubin Neg (Negative) Prot Sulfosalicyli c Acd Negative (Negative) Urine Urobilinogen Norm (Negative) mg/dL Ur Leukocyte Demetria ase 2+ H (Negative) Urine RBC 25-40 H (0-2) /hpf Urine WBC >100 H (0-5) /hpf Ur Squamous Epith Cells 0-4 H (0-5) /hpf Triple Phos Tasneem ls 15-25 H /hpf Amorphous Sediment Not Reportable Urine Bacteria 4+ H (NONE) /hpf Urine Mucus 1+ /hpf / Range/Units 16:45 WBC (4.0-10.0) 10^3/ uL RBC (4.1-5.3) 10^6/u L Hgb (11.7-16.6) g/dL Hct (42.0-52.0) % MCV (80-94) fL MCH (28.0-34.0) pg MCHC (30.0-36.0) g/dL RDW (12.1-15.1) % Plt Count (130-400) 10^3/c mm MPV (7.4-10.4) fL Neut % (Auto) % Lymph % (Auto) % [place] % (Auto) % Eos % (Auto) % Baso % (Auto) % Neut # (Auto) (1.8-7.7) 10^3/u L Lymph # (Auto) (0.8-4.8) 10^3/u L [place] # (Auto) (0.2-0.9) 10^3/u L Eos # (Auto) (0.0-0.8) 10^3/u L Baso # (Auto) (0.0-0.1) 10^3/u L Nucleated RBC % (a uto) % Nucleated RBCs # /100WBC Sodium (136-145) mmol/L Potassium (3.5-5.1) mmol/L Chloride (98-107) mmol/L Carbon Dioxide (22-29) mmol/L Anion Gap (5-19) BUN (8-23) mg/dL Creatinine (0.7-1.2) mg/dL GFR Calculation Glucose (65-115) mg/dL Calculated Osmolal ity (285-295) mOsm/k g Lactic Acid 1.7 (0.5-2.2) mmol/L Calcium (8.5-10.5) mg/dL Total Bilirubin (0.15-1.2) mg/dL AST (0-40) U/L ALT (0-41) U/L Alkaline Phosphata se (40-130) IU/L Total Protein (6.6-8.7) g/dL Albumin (3.5-5.2) g/dL Globulin (1.3-4.6) g/dL Urine Color (Yellow) Urine Appearance (CLEAR) Urine pH (5-7) Ur Specific Gravit y (1.005-1.030) Urine Protein (Negative) Urine Glucose (UA) (Normal) Urine Ketones (Negative) Urine Blood (Negative) Urine Nitrate (Negative) Urine Bilirubin (Negative) Prot Sulfosalicyli c Acd (Negative) Urine Urobilinogen (Negative) mg/dL Ur Leukocyte Demetria ase (Negative) Urine RBC (0-2) /hpf Urine WBC (0-5) /hpf Ur Squamous Epith Cells (0-5) /hpf Triple Phos Tasneem ls /hpf Amorphous Sediment Urine Bacteria (NONE) /hpf Urine Mucus /hpf Imaging Data: CXR: Attestation: I personally reviewed and interpreted this imaging study as follows: Radiologist's impression: [address] [address] XRay Report Signed Patient: Ben Ochoa Unit #: [id number] : 1945 Age/Sex: 75 / M ADM Date: 01/26/21 Loc: ER Room/Bed: Attending Dr: Ordering Provider/Ordering MD: Jose Luis Sands , [facility] Date of Service: 01/26/21 Procedure(s): XR chest 1V portable [id number] Accession Number(s): [id number] Report Number: [id number] WS: [id number] Portable AP upright chest, 01/26/2021 Clinical Data: hematuria Comparison: Portable chest, 12/08/2020. Findings: No nodules, masses or effusions are seen. The heart is slightly enlarged. The pulmonary vascularity is not increased. No pneumothorax is seen. There are linear atelectatic changes over both lungs. The previously noted pulmonary opacities are totally resolved. The aortic arch and descending aorta show tortuosity. XR/XR chest 1V portable [id number] Impression: 1. Cardiomegaly and atherosclerosis. 2. Bilateral lower lobe atelectasis. 3. Resolution of bilateral patchy opacities. Dictated By: Paulette See MD Signed By: Paulette See MD Signed Date/Time: 01/26/21 163 DD/ 163 CT Abd/Pel: Attestation: I personally reviewed and interpreted this imaging study as follows: Radiologist's impression: [address] [address] [address] Scan Report Signed with Luis Alberto Patient: Ben Ochoa Unit #: [id number] : 1945 Age/Sex: 75 / M ADM Date: 01/26/21 Loc: ER Room/Bed: Attending Dr: Ordering Provider/Ordering MD: Desiree Davies Date of Service: 01/26/21 Procedure(s): CT abdomen pelvis w con* [id number] Accession Number(s): [id number] Report Number: [id number]/CT abdomen pelvis w con* [id number] THIS REPORT CONTAINS FINDINGS THAT MAY BE CRITICAL TO PATIENT CARE. The findings were verbally communicated via telephone conference with DESIREE DAVIES at 7:05 PM CDT on 01/26/2021. The findings were acknowledged and understood. Radiation Dose CTDIVOL = (mGy): DLP = 2481.04 (mGy-cm) Addendum Dictated By: Jose Juan Gonzalez Addendum Signed By: Jose Juan Gonzalez Signed Date/Time: 01/26/21 190 9 Addendum Cosigned By: PROCEDURE INFORMATION: Exam: CT Abdomen And Pelvis With Contrast Exam date and time: 01/26/2021 6:04 PM Age: 75 years old Clinical indication: Abdominal pain; Tenderness; Lower; Additional info: Suprapubic tenderness, blood in urine TECHNIQUE: Imaging protocol: Computed tomography of the abdomen and pelvis with contrast. Total images: 281 Radiation optimization: All CT scans at this facility use at least one of these dose optimization techniques: automated exposure control; mA and/or kV adjustment per patient size (includes targeted exams where dose is matched to clinical indication); or iterative reconstruction. Contrast material: VISI 320; Contrast volume: 95 ml; Contrast route: INTRAVENOUS (IV); COMPARISON: 1. CT pelvis w con* [id number] 05/11/2020 2:[address] abdomen pelvis w con* [id number] 07/08/2016 8:29:50 PM RADIATION DOSE METRICS: Total DLP (mGy-cm): 2481.04 FINDINGS: Pleural spaces: Small volume left pleural effusion. Small volume subsegmental alveolar airspace disease posterior basal segment left lower lobe which could reflect atelectasis, pneumonia, and/or focal edema. Diffuse interstitial lung disease. Heart: Cardiomegaly. Left ventricular prominence. No visible pericardial effusion. Advanced 3 vessel coronary artery disease. Liver: No visible hepatic mass or cystic structure. Gallbladder and bile ducts: Unremarkable. No calcified stones. No ductal dilation. Pancreas: Atrophic pancreas. No visible pancreatic ductal ectasia. Spleen: Splenic calcifications of antecedent granulomatous disease. Adrenal glands: Adrenal glands unremarkable. Kidneys and ureters: Findings of moderate pelvicaliectasis bilaterally, right slightly greater than left. Bilateral ureterectasis, right greater than left. Findings raising concern for right pyelitis. No visible nephrolithiasis or visible ureterolithiasis. Stomach and bowel: Diverticulosis coli without visible evidence for acute diverticulitis. Nonobstructive bowel pattern. No visible adynamic or reactive ileus. Appendix: No evidence of appendicitis. Intraperitoneal space: No visible evidence of mesenteric lymphadenitis or active mesenteritis/panniculitis. No visible pneumoperitoneum or intraperitoneal ascites. Vasculature: The abdominal aorta is nonaneurysmal. Mild arterial sclerotic disease. Lymph nodes: No current visible evidence of active mesenteric or retroperitoneal lymphadenopathy. Urinary bladder: Marked diffuse bladder wall thickening. Free air within the lumen the urinary bladder. Concern for acute cystitis. Madrigal catheter with the balloon of the Madrigal catheter at the level of the prostate/urethra junction. Reproductive: Marked prostate hypertrophy. Madrigal catheter with the balloon of the Madrigal catheter at the level of the prostate/urethra junction. Bones/joints: No visible active or acute osseous pathology. Diffuse idiopathic skeletal hyperostosis. Pectus excavatum. Soft tissues: Right posterior upper thigh lipoma measuring 6 cm in diameter interposed between the adductor muscles. Other findings: Obesity. Motion artifact. CT/CT abdomen pelvis w con* [id number] IMPRESSION: 1. Marked diffuse bladder wall thickening. Free air within the lumen the urinary bladder. Concern for acute cystitis. 2. Findings raising concern for right pyelitis. 3. Findings of moderate pelvicaliectasis bilaterally, right greater than left. 4. Madrigal catheter with the balloon of the Madrigal catheter at the level of the prostate/urethra junction. 5. Small volume left pleural effusion. 6. Small volume subsegmental alveolar airspace disease posterior basal segment left lower lobe which could reflect atelectasis, pneumonia, and/or focal edema. 7. Advanced 3 vessel coronary artery disease. 8. Other nonurgent, nonemergent, chronic, and age related findings as detailed in text above. Radiation Dose CTDIVOL = (mGy): DLP = 2481.04 (mGy-cm) Dictated By: Jose Juan Gonzalez Signed By: Jose Juan Gonzalez Signed Date/Time: 01/26/211906 DD/ 05 EKG Data: EKG 1: Attestation: I personally reviewed and interpreted this EKG as follows: EKG Data: 01/26/21 Interpretation: Sinus tachycardia, [address] segment elevation or depression seen. Discharge Plan Discharge Admit Provider: Song Jones Sign Out Sign Out Data: Patient Sign Out occurred on 01/26/21 at 17:01. Patient's care was discussed, and care was transferred from to PABLO Springer. Coding Level of Care Code ED Waxer Floor for Chg Fwd Exam Expanded Problem Focused
--- NOTE | 2021-01-26 16:06 | XR_ITS ---
WS: [id number] Portable AP upright chest, 01/26/2021 Clinical Data: hematuria Comparison: Portable chest, 12/08/2020. Findings: No nodules, masses or effusions are seen. The heart is slightly enlarged. The pulmonary vas cularity is not increased. No pneumothorax is seen. There are linear atelectatic changes over both brittney ngs. The previously noted pulmonary opacities are totally resolved. The aortic arch and descending ao rta show tortuosity. XR/XR chest 1V portable [id number] Impression: 1. Cardiomegaly and atherosclerosis. 2. Bilateral lower lobe atelectasis. 3. Resolution of bilateral patchy opacities.
--- NOTE | 2021-01-26 16:08 | PC.NURSE ---
Read and agree with assessment.
[2021-01-26 16:43] LABS: Basophils # 0.1 10^3/uL (0.0-0.1); Basophils % 0.8 %; Eosinophils # 0.1 10^3/uL (0.0-0.8); Eosinophils % 0.8 %; Hematocrit 45.8 % (42.0-52.0); Hemoglobin 14.2 g/dL (11.7-16.6); Lymphocytes # 1.1 10^3/uL (0.8-4.8); Lymphocytes % 9.3 %; Mean Corpuscular Hemoglobin 25.3 pg (28.0-34.0); Mean Corpuscular Volume 81.5 fL (80-94); Mean Platelet Volume 11.3 fL (7.4-10.4); Monocytes # 1.1 10^3/uL (0.2-0.9); Monocytes % 9.5 %; Neutrophils # 9.25 10^3/uL (1.8-7.7); Neutrophils % 79.3 %; Nucleated Red Blood Cells % 0 %; Platelet Count 324 10^3/cmm (130-400); Red Blood Count 5.62 10^6/uL (4.1-5.3); Red Cell Distribution Width 14.6 % (12.1-15.1); White Blood Count 11.7 10^3/uL (4.0-10.0)
[2021-01-26 17:07] LABS: Alanine Aminotransferase 11 U/L (0-41); Albumin Level 3.9 g/dL (3.5-5.2); Alkaline Phosphatase 144 IU/L (40-130); Anion Gap 15.9 (5-19); Aspartate Amino Transferase 13 U/L (0-40); Blood Urea Nitrogen 30 mg/dL (8-23); Calcium 9.3 mg/dL (8.5-10.5); Carbon Dioxide 26 mmol/L (22-29); Chloride 99 mmol/L (98-107); Creatinine Clr Calc Pharmacy 68.1182; Globulin 4.2 g/dL (1.3-4.6); Glucose 122 mg/dL (65-115); Osmolality Calculated 291 mOsm/kg (285-295); Potassium 3.9 mmol/L (3.5-5.1); Sodium 137 mmol/L (136-145); Total Bilirubin 0.4 mg/dL (0.15-1.2); Total Protein 8.1 g/dL (6.6-8.7)
[2021-01-26 17:18] VITALS: BP 144/86; PULSE 108; RESP 13; O2SAT 96
--- NOTE | 2021-01-26 17:25 | CTR_ITS ---
PROCEDURE INFORMATION: Exam: CT Abdomen And Pelvis With Contrast Exam date and time: 01/26/2021 6:04 PM Age: 75 years old Clinical indication: Abdominal pain; Tenderness; Lower; Additional info: Suprapubic tenderness, blood in urine TECHNIQUE: Imaging protocol: Computed tomography of the abdomen and pelvis with contrast. Total images: 281 Radiation optimization: All CT scans at this facility use at least one of these dose optimization techniques: automated exposure control; mA and/or kV adjustment per patient size (includes targeted exams where dose is matched to clinical indication); or iterative reconstruction. Contrast material: VISI 320; Contrast volume: 95 ml; Contrast route: INTRAVENOUS (IV); COMPARISON: 1. CT pelvis w con* [id number] 05/11/2020 2:[address] abdomen pelvis w con* [id number] 07/08/2016 8:29:50 PM RADIATION DOSE METRICS: Total DLP (mGy-cm): 2481.04 FINDINGS: Pleural spaces: Small volume left pleural effusion. Small volume subsegmental alveolar airspace disease posterior basal segment left lower lobe which could reflect atelectasis, pneumonia, and/or focal edema. Diffuse interstitial lung disease. Heart: Cardiomegaly. Left ventricular prominence. No visible pericardial effusion. Advanced 3 vessel coronary artery disease. Liver: No visible hepatic mass or cystic structure. Gallbladder and bile ducts: Unremarkable. No calcified stones. No ductal dilation. Pancreas: Atrophic pancreas. No visible pancreatic ductal ectasia. Spleen: Splenic calcifications of antecedent granulomatous disease. Adrenal glands: Adrenal glands unremarkable. Kidneys and ureters: Findings of moderate pelvicaliectasis bilaterally, right slightly greater than left. Bilateral ureterectasis, right greater than left. Findings raising concern for right pyelitis. No visible nephrolithiasis or visible ureterolithiasis. Stomach and bowel: Diverticulosis coli without visible evidence for acute diverticulitis. Nonobstructive bowel pattern. No visible adynamic or reactive ileus. Appendix: No evidence of appendicitis. Intraperitoneal space: No visible evidence of mesenteric lymphadenitis or active mesenteritis/panniculitis. No visible pneumoperitoneum or intraperitoneal ascites. Vasculature: The abdominal aorta is nonaneurysmal. Mild arterial sclerotic disease. Lymph nodes: No current visible evidence of active mesenteric or retroperitoneal lymphadenopathy. Urinary bladder: Marked diffuse bladder wall thickening. Free air within the lumen the urinary bladder. Concern for acute cystitis. Madrigal catheter with the balloon of the Madrigal catheter at the level of the prostate/urethra junction. Reproductive: Marked prostate hypertrophy. Madrigal catheter with the balloon of the Madrigal catheter at the level of the prostate/urethra junction. Bones/joints: No visible active or acute osseous pathology. Diffuse idiopathic skeletal hyperostosis. Pectus excavatum. Soft tissues: Right posterior upper thigh lipoma measuring 6 cm in diameter interposed between the adductor muscles. Other findings: Obesity. Motion artifact. CT/CT abdomen pelvis w con* [id number] IMPRESSION: 1. Marked diffuse bladder wall thickening. Free air within the lumen the urinary bladder. Concern for acute cystitis. 2. Findings raising concern for right pyelitis. 3. Findings of moderate pelvicaliectasis bilaterally, right greater than left. 4. Madrigal catheter with the balloon of the Madrigal catheter at the level of the prostate/urethra junction. 5. Small volume left pleural effusion. 6. Small volume subsegmental alveolar airspace disease posterior basal segment left lower lobe which could reflect atelectasis, pneumonia, and/or focal edema. 7. Advanced 3 vessel coronary artery disease. 8. Other nonurgent, nonemergent, chronic, and age related findings as detailed in text above. Radiation Dose CTDIVOL = (mGy): DLP = 2481.04 (mGy-cm)
[2021-01-26 17:27] LABS: Add Urine Microscopic? YES; Bilirubin Urine Neg (Negative); Blood Urine 3+ (Negative); Glucose Urine UA Norm (Normal); Ketones Urine Negative (Negative); Leukocyte Esterase Urine 2+ (Negative); Nitrate Urine Negative (Negative); Protein Urine 2+ (Negative); Specific Gravity, Urine 1.015 (1.005-1.030); Sulfosalicylic Acid Urine Negative (Negative); Urine Appearance Cloudy (CLEAR); Urine Color Yellow (Yellow); Urobilinogen Urine Norm (Negative); pH Urine 8 (5-7)
[2021-01-26 17:28] LABS: Add Urine Culture? Yes; Bacteria Urine 4+ /hpf; Mucus Urine 1+ /hpf; RBC Urine 25-40 /hpf (0-2); Squamous Epithelial Cell Urine 0-4 /hpf (0-5); Triple Phosphate Crystal Urine 15-25 /hpf; WBC Urine >100 /hpf (0-5)
[2021-01-26] MEDS: sodium chloride 0.9% 1,000 ML 999 ML IV (17:32)
[2021-01-26] MEDS: cefTRIAXone 2,000 MG in sodium chloride 0.9% (plus) 50 ML 100 MG IV (17:33)
[2021-01-26] MEDS: iodixanol 320 mg/mL 100mL Btl IV (18:29)
[2021-01-26 19:51] LABS: Lactic Sepsis W/Reflex 1.7 mmol/L (0.5-2.2)
--- NOTE | 2021-01-26 20:21 | P.HP_ITS ---
Providers/Chief Complaint Primary Care Provider: Dominic Adams DO Chief Complaint: BLOODY URINE History of Present Illness Ben Ochoa is a 75 year old male who presented from [facility] with chief complaint of not been able to urinate. Patient has history of BPH for which she takes finasteride and tamsulosin. He is stating that for last few days he has been experiencing dysuria, hypogastric pain, which has gotten worse in last 1 week and in last 48 hours his urine output has decreased significantly because of the symptoms he decided to be seen in the ER. Is endorsing fever 102 at the senior care, denying chest pain, shortness of breath abdominal pain, endorsing constipation last bowel movement was 3 or 4 days ago. He ambulates with minimal assistance, eats regular diet. He does endorse history of BPH. Diagnostics in the ER revealed significant nathalie hematuria when Madrigal catheter was passed however CT abdomen pelvis did not show any ureterolithiasis it is showing pyelitis and cystitis changes, Madrigal catheter was around prostatic urethra I have asked nurse to advance Madrigal catheter about 4 to 5 cm, there is nathalie blood in urine bag, patient is not complaining of hypogastric or flank pain. He is afebrile with mild leukocytosis with normal hemodynamics, mildly tachycardic, clinically looks dehydrated, creatinine normal, abnormal UA noted, chest x-ray shows resolution of bilateral patchy opacities cardiomegaly bi lateral lower lobe atelectasis, in the ER he received 1 L normal saline and ceftriaxone 2 g Review of Systems Const: Reports: fever(s), chills, body aches and fatigue Eyes: Denies: change in vision ENMT: Denies: throat pain Card: Denies: chest pain Resp: Denies: dyspnea GI: Reports: abdominal pain and constipation : Reports: dysuria, change in urine stream and oliguria Musc: Denies: neck pain Skin/Breast: Reports: lesions Neuro: Denies: headache(s) Psych: Denies: anxiety Endo: Denies: polyuria Aiden/Lymph: Denies: easy bruising All/Imm: Denies: urticaria Medications/Allergies Home Medications Medication Instructions Recorded Confirmed Last Taken Type acetaminophen 325 mg capsule 650 mg PO Q4H PRN cap 11/27/19 01/26/21 01/26/21 01:04 History finasteride 5 mg tablet 5 mg PO DAILY@20 tab 11/27/19 01/26/21 01/25/21 History omeprazole 20 mg tablet,delayed 20 mg PO DAILY@05 11/27/19 01/26/21 01/26/21 05:13 History release tamsulosin 0.4 mg capsule 0.4 mg PO DAILY@20 cap 11/27/19 01/26/21 01/25/21 History bisacodyl 10 mg rectal suppository 10 mg PA DAILY PRN 03/01/20 01/26/21 Unknown History magnesium hydroxide 400 mg/5 mL 30 ml PO DAILY PRN ml 03/01/20 01/26/21 Unknown History oral suspension calcium carbonate [Tums] 1,000 mg PO QID PRN 12/08/20 01/26/21 Unknown History menthol [[place] Cough Drops] 7.6 mg MUCOUS MEMBRANE Q2H PRN 12/08/20 01/26/21 Unknown History polyvinyl alcohol [LiquiTears] 3 drp OPHTHALMIC (EYE) QID PRN 12/08/20 01/26/21 Unknown History sodium phosphates [Enema 118 ml PA DAILY PRN 12/08/20 01/26/21 Unknown History Disposable] aspirin [Aspir-81] 81 mg PO DAILY@08 01/26/21 01/26/21 01/26/21 08:21 History Allergies Allergy/AdvReac Type Severity Reaction Status Date / Time tetanus toxoid, adsorbed Allergy Unknown unknown Verified 01/26/21 16:10 PFSH Acute PFSH: Medical History COPD (chronic obstructive pulmonary disease) Dementia of frontal lobe type History of 2019 novel coronavirus disease (COVID-19) Major depressive disorder, single episode Major depressive disorder, single episode, in full remission Ventricular premature beats Surgical History History of thoracentesis Chronic right pleural effusion which needed Donaldo drain which was removed by Dr. Hoover 2016 PEG (percutaneous endoscopic gastrostomy) status Family History Father Cancer Grandfather Myocardial infarction Other CAD (coronary artery disease) Social History Smoking and tobacco status: never smoked Second hand smoke exposure: No Alcohol intake: never Vitals/I&O/Wt Last Vital Signs Pulse 108 H 01/26/21 17:18 Resp 13 01/26/21 17:18 BP 144/86 01/26/21 17:18 Pulse Ox 96 01/26/21 17:18 Weight last 48 hrs Weight 96.162 kg Physical Exam Narrative: EXAM NARRATIVE: elderly male who appears his stated age, clinically looks dehydrated currently saturating well on room air hemodynamically stable No active distress, Madrigal catheter draining nathalie blood in urine bag No CVA tenderness Abdomen soft, slightly distended otherwise soft and nontender S1, S2, did not appreciate any murmur, Clinically looks dehydrated Bilateral breath sounds with mild rhonchi bilaterally Lower extremity no edema gangrene or ulcer He is awake and alert oriented x3 GCS 15 Very pleasant and cooperative during my evaluation No active skin cellulitis or joint swelling Urinary Catheter Management^: Madrigal: Cath Placed During This Visit: yes Urinary Catheter Date of Insertion: 01/26/21 Urinary Catheter Time of Insertion: 15:57 Data : 01/26/21 16:40 01/26/21 16:40 Micro: Microbiology 01/26/21 16:43 Blood Culture - Preliminary Blood SPECIMEN COLLECTED 01/26/21 16:45 Blood Culture - Preliminary Blood SPECIMEN COLLECTED A&P Assessment and plan (1) Cystitis: Status: Acute (2) BPH (benign prostatic hyperplasia): Status: Acute (3) Hematuria: Status: Acute Additional A&P Information Acute cystitis and pyelitis Abnormal UA, patient endorsing fever 102 at senior care Mild leukocytosis Received ceftriaxone 2 g along 1 L normal saline I will monitor his H&H currently hemoglobin is stable avoid anticoagulating agent Most likely this was traumatic Madrigal catheter placement CT abdomen revealed Madrigal catheter balloon around prostatic urethra, it has been advanced, if there is no resolution of hematuria and extremity 4 hours he will need urology consult Continue tamsulosin and finasteride Continue ceftriaxone 1 g daily, follow-up with urine culture and blood culture He meets sepsis criteria with leukocytosis and tachycardia I do believe BPH has a role to play for cystitis and pyelitis however no active hydronephrosis or urolithiasis Of note, previous urine culture from November positive for Morganella morganii, sensitive to cephalosporins COPD without acute exacerbation currently saturating well on room air Continue DuoNeb for as needed use History of recurrent right pleural effusion: No acute decompensation Status post bronchoscopy 2016, no recurrence after removal of Barry drain by Dr. Hoover Pleural color was pale yellow-white count 153 RBC 120 90% mononuclear cells, 10% polymorphonuclear, I am not able to open up pathology report from 07/09/2016 History of PEG tube placement It has been removed, patient tolerates p.o. diet now Dementia without acute decompensation no active signs of delirium Full code Cardiac diet DVT prophylaxis not indicated would use SCDs because of hematuria Attestations Medical Necessity Statement*: Anticipating stay in the hospital because more than 2 midnights for sepsis secondary to cystitis and pyelitis most likely due to bladder outlet obstruction due to BPH Time Spent in Patient Care: (>than 50% of time spent in counselling and/or direct pt care on unit) . 40mins Coding Level of Care Code Acute Construction Ironworker for Chg Fwd Diagnoses Cystitis N30.90 BPH (benign prostatic hyperplasia) N40.0 Hematuria R31.9
[2021-01-26 21:42] VITALS: BP 126/75; PULSE 102; RESP 18; TEMP 36.6; O2SAT 96
[2021-01-27] VITALS (8 sets, daily range): BP systolic 122–157; BP diastolic 65–92; PULSE 76–100; RESP 16–18; TEMP 36.4–36.9; O2SAT 94–98
[2021-01-27] MEDS: sodium chloride 0.9% 1,000 ML 75 ML IV ×2 (00:05→12:57)
[2021-01-27] MEDS: pantoprazole DR 40 mg Tablet PO (04:28)
[2021-01-27 05:41] LABS: Basophils # 0.1 10^3/uL (0.0-0.1); Basophils % 0.9 %; Eosinophils # 0.2 10^3/uL (0.0-0.8); Hematocrit 38.5 % (42.0-52.0); Hemoglobin 11.8 g/dL (11.7-16.6); Lymphocytes # 1.1 10^3/uL (0.8-4.8); Lymphocytes % 13.3 %; Mean Corpuscular HGB Conc 30.6 g/dL (30.0-36.0); Mean Corpuscular Volume 81.6 fL (80-94); Monocytes # 0.9 10^3/uL (0.2-0.9); Neutrophils # 5.93 10^3/uL (1.8-7.7); Neutrophils % 72.2 %; Nucleated Red Blood Cells % 0 %; Platelet Count 254 10^3/cmm (130-400); Red Blood Count 4.72 10^6/uL (4.1-5.3); Red Cell Distribution Width 14.6 % (12.1-15.1); White Blood Count 8.2 10^3/uL (4.0-10.0)
[2021-01-27 06:08] LABS: Anion Gap 15.3 (5-19); Blood Urea Nitrogen 23 mg/dL (8-23); Calcium 8.4 mg/dL (8.5-10.5); Carbon Dioxide 23 mmol/L (22-29); Chloride 103 mmol/L (98-107); Glucose 133 mg/dL (65-115); Osmolality Calculated 292 mOsm/kg (285-295); Potassium 3.3 mmol/L (3.5-5.1); Sodium 138 mmol/L (136-145)
[2021-01-27] MEDS: cefTRIAXone 1,000 MG in sodium chloride 0.9% (plus) 50 ML 100 MG IV (09:00)
[2021-01-27] MEDS: aspirin 81 mg EC Tablet PO (09:00)
[2021-01-27] MEDS: sennosides-docusate Tablet 1 TAB PO (09:00)
--- NOTE | 2021-01-27 11:31 | PC.CHAP ---
Pastoral Care Encounter/Spiritual Assessment Type of Contact [] Declined dimension mill worker visit [] Patient/Family/Request visit [] Outpatient visit [x] Follow-up visit [] Physician referral [] Code/Alert [] Routine visit [] Staff referral [] Actively dying [] Patient sleeping [] Family support [] [] Out of room [] Palliative care [] [] Receiving care in room [] Pre-surgical visit [] Trauma [] Long length of stay [] ICU visit [] Other: Relational/Emotional Strength [] Patient feels connected with others/family/visitors/staff [] Distress [] Loneliness/isolation [] Abandonment Spirituality of Patient [] Person of Luz [] Attends Samaritan of their Luz [] Believes in Prayer [] Reads Bible or Hindu materials [] There are Spiritual issues to be addressed Grinder Set Up Operator Gear Tool Interventions [] Prayer [] Active listening [] Non-anxious presence [] Spiritual/emotional support [] Crisis/trauma care [] Spiritual counseling [] Bereavement support [] Provided bereavement packet [] Provided Bible/devotional materials [] Provided toy/stuffed animal, coloring book to patient or family member [] Provided Communion [] Anointing/[place] [] Salvation [] Completed spiritual assessment [] Other: Impact on Illness or Injury [] Angry [] Fearful [] Anxious [] Often cries [] Exhaustion [] Unable to work [] Unable to attend adventist [] Unable to walk/stand [] Unable to read [] Unable to drive [] Unable to eat/drink [] Unable to sleep [] Unable to be with family [] Patient intubated [] Other: Summary Follow-up visit Time spent with patient 5 mins
[2021-01-27] MEDS: acetaminophen 325 mg Tablet 650 MG PO ×2 (12:49→21:59)
--- NOTE | 2021-01-27 14:23 | PC.NURSE ---
Irrigated pinzon catheter. Got back small blood clots and returned bright bloody urine. Patient's stomach is distended. No more than usual. Patient tolerated well.
[2021-01-27] MEDS: tamsulosin 0.4 mg Capsule PO (21:55)
[2021-01-27] MEDS: finasteride 5 mg Tablet PO (21:56)
--- NOTE | 2021-01-27 22:44 | P.PN_ITS ---
Subjective Subjective: Interval history: Patient does not like the Madrigal catheter and is asking when it can be removed. Spoke with . Challenging to get a clear history of exactly what happened with the catheter but from what I understand he is required what sounds like urethral dilatation in the past. With his frontal lobe dementia he does not do well with following instructions and direction. I think he has had a catheter recently. It was removed whether planned or accidental is not clear. After this he began to have some hematuria. Madrigal catheter was placed in the emergency room today and when it was inserted there was return of purulent material and blood. Initial catheter was noted to be at the urethral prostate junction and was advanced further. He has had irrigation with continued clots at times though overall amount of hematuria seems to be decreasing. Denied any nausea or vomiting. No diarrhea. May have had some fever. Medications: Medication Review Details: On Rocephin which covers previously identified urinary organisms Vitals/I&O/Wt Last Vital Signs Temp 97.6 F 01/27/21 20:00 Pulse 79 01/27/21 20:00 Resp 18 01/27/21 20:00 BP 135/65 01/27/21 20:00 Pulse Ox 95 01/27/21 20:00 01/27/21 01/27/21 01/27/21 06:59 14:59 22:59 Intake Total 1495 / 1495 240 / 1735 Output Total 200 / 200 850 / 850 350 / 1200 Balance -200 / 850 645 / 645 -110 / 535 Weight last 48 hrs Weight 96.162 kg Physical Exam Narrative: EXAM NARRATIVE: Awake and alert, smiling, likes to interrupt conversation and make sure his questions are asked but does it pleasantly. Primary focus is when can the catheter come out. His lips are dry, he keeps his mouth open while he is watching TV. Extraocular movements are intact. Lungs are clear. Abdomen is rotund but soft, nontender. Normal external genitalia. Urine is tea colored with darker clots noted in the bag and tubing. Urinary Catheter Management^: Madrigal: Cath Placed During This Visit: yes Reason for Continuing Indwelling Catheter: Accurate Measurement of Urinary Output in Critically Ill Patients Urinary Catheter Date of Insertion: 01/26/21 Urinary Catheter Time of Insertion: 15:57 Data : 01/27/21 05:20 01/27/21 05:20 Micro: Microbiology 01/26/21 16:43 Blood Culture - Preliminary Blood 01/26/21 16:45 Blood Culture - Preliminary Blood A&P Assessment and plan (1) Cystitis: With hematuria Status: Acute (2) BPH (benign prostatic hyperplasia): Status: Chronic (3) Hematuria: Status: Acute (4) Dementia of frontal lobe type: Status: Chronic (5) COPD (chronic obstructive pulmonary disease): Status: Acute Qualifiers: COPD type: unspecified COPD Qualified Code(s): J44.9 - Chronic obstructive pulmonary disease, unspecified Additional A&P Information Bladder irrigation to continue Continue Rocephin Follow-up urine culture Will probably require outpatient follow-up to urology versus inpatient consultation if not able to get better control of hematuria; given the trauma will need to keep Madrigal catheter in place for a week or 2 before another trial of void On finasteride and Flomax He meets SIRS/sepsis criteria with leukocytosis and tachycardia although responded quickly to fluids and other care As needed nebulizer treatment SCDs for DVT prophylaxis currently given hematuria Monitor for more prominent symptoms of his frontal lobe dementia. Plans were discussed with him and his and both were given an opportunity to talk and ask questions Supportive care otherwise Anticipate disposition back to skilled facility once it is clear there is no ongoing bleeding and appropriate coverage is on board Full code Attestations Medical Necessity Statement*: Requires continued management for bladder irrigation, monitoring of need for urological consultation, continue antibiotics and follow-up of cultures Coding Level of Care Code Acute Branch Service Representative for g Fwd Diagnoses Cystitis N30.90 BPH (benign prostatic hyperplasia) N40.0 Hematuria R31.9 Dementia of frontal lobe type G31.09; F02.80 COPD (chronic obstructive pulmonary disease) J44.9 COPD type: unspecified COPD
[2021-01-28] VITALS (8 sets, daily range): BP systolic 115–159; BP diastolic 60–80; PULSE 70–93; RESP 17–19; TEMP 36.6–37.2; O2SAT 94–98
[2021-01-28] MEDS: sodium chloride 0.9% 1,000 ML 75 ML IV ×2 (02:56→17:22)
[2021-01-28] MEDS: acetaminophen 325 mg Tablet 650 MG PO ×2 (03:10→17:21)
[2021-01-28] MEDS: pantoprazole DR 40 mg Tablet PO (04:41)
[2021-01-28 06:03] LABS: Basophils # 0.1 10^3/uL (0.0-0.1); Basophils % 1.3 %; Eosinophils # 0.4 10^3/uL (0.0-0.8); Eosinophils % 6.2 %; Hematocrit 34.7 % (42.0-52.0); Hemoglobin 10.6 g/dL (11.7-16.6); Lymphocytes # 1.2 10^3/uL (0.8-4.8); Lymphocytes % 19.4 %; Mean Corpuscular HGB Conc 30.5 g/dL (30.0-36.0); Mean Corpuscular Hemoglobin 25.1 pg (28.0-34.0); Mean Corpuscular Volume 82.2 fL (80-94); Mean Platelet Volume 11.4 fL (7.4-10.4); Monocytes # 0.8 10^3/uL (0.2-0.9); Monocytes % 12.9 %; Neutrophils # 3.66 10^3/uL (1.8-7.7); Neutrophils % 59.9 %; Nucleated Red Blood Cells % 0 %; Platelet Count 231 10^3/cmm (130-400); Red Blood Count 4.22 10^6/uL (4.1-5.3); Red Cell Distribution Width 14.6 % (12.1-15.1); White Blood Count 6.1 10^3/uL (4.0-10.0)
[2021-01-28 06:26] LABS: Anion Gap 14.6 (5-19); Blood Urea Nitrogen 20 mg/dL (8-23); Calcium 8.2 mg/dL (8.5-10.5); Carbon Dioxide 24 mmol/L (22-29); Chloride 105 mmol/L (98-107); Glucose 96 mg/dL (65-115); Osmolality Calculated 292 mOsm/kg (285-295); Potassium 3.6 mmol/L (3.5-5.1); Sodium 140 mmol/L (136-145)
[2021-01-28] MEDS: cefTRIAXone 1,000 MG in sodium chloride 0.9% (plus) 50 ML 100 MG IV (10:03)
[2021-01-28] MEDS: aspirin 81 mg EC Tablet PO (10:04)
[2021-01-28] MEDS: sennosides-docusate Tablet 1 TAB PO (10:04)
--- NOTE | 2021-01-28 13:23 | PC.CHAP ---
Pastoral Care Encounter/Spiritual Assessment Type of Contact [] Declined banquet waiter/waitress visit [] Patient/Family/Request visit [] Outpatient visit [xx] Follow-up visit [] Physician referral [] Code/Alert [xx] Routine visit [] Staff referral [] Actively dying [] Patient sleeping [] Family support [] [] Out of room [] Palliative care [] [] Receiving care in room [] Pre-surgical visit [] Trauma [] Long length of stay [] ICU visit [] Other: Relational/Emotional Strength [xx] Patient feels connected with others/family/visitors/staff [] Distress [] Loneliness/isolation [] Abandonment Spirituality of Patient [xx] Person of Luz [] Attends Buddhist of their Luz [xx] Believes in Prayer [] Reads Bible or Episcopalian materials [] There are Spiritual issues to be addressed [place] Interventions [xx] Prayer [xx] Active listening [xx] Non-anxious presence [] Spiritual/emotional support [] Crisis/trauma care [] Spiritual counseling [] Bereavement support [] Provided bereavement packet [xx] Provided Bible/devotional materials [] Provided toy/stuffed animal, coloring book to patient or family member [] Provided Communion [] Anointing/[place] [] Salvation [xx] Completed spiritual assessment [] Other: Impact on Illness or Injury [] Angry [] Fearful [] Anxious [] Often cries [] Exhaustion [] Unable to work [] Unable to attend hindu [] Unable to walk/stand [] Unable to read [] Unable to drive [] Unable to eat/drink [] Unable to sleep [] Unable to be with family [] Patient intubated [] Other: Summary [employer] given to patient. Patient recognized banquet waiter/waitress as person who took her cat to the custodial (where patient resides) several times per month before Covid-19 changed everything. Patient and cat enjoyed each other's company very much during those visits 2016 through 11/2019. This was primary topic of conversation. Patient and banquet waiter/waitress renewed acquaintances and had prayer. Time spent with patient 17 minutes
[2021-01-28 14:36] LABS: PSA Free 0.7 ng/mL; PSA Free Percentage NOT CALCULATED % (calc) (>25)
[2021-01-28] MEDS: calcium carbonate 500 mg Chew Tablet 1000 MG PO (17:22)
[2021-01-28] MEDS: finasteride 5 mg Tablet PO (20:13)
[2021-01-28] MEDS: tamsulosin 0.4 mg Capsule PO (20:13)
--- NOTE | 2021-01-28 21:17 | PM.PN ---
Subjective Subjective: Interval history: Some nausea and indigestion today. Again asking when the catheter can come out. Overnight nurse got a few additional clots of dark blood but urine is starting to become senior executive compensation analyst in color. Vitals/I&O/Wt Last Vital Signs Temp 98.9 F 01/28/21 19:51 Pulse 93 01/28/21 20:51 Resp 17 01/28/21 20:51 BP 115/60 01/28/21 19:51 Pulse Ox 95 01/28/21 20:51 01/28/21 01/28/21 01/28/21 06:59 14:59 22:59 Intake Total 1000 / 2735 290 / 290 1140 / 1430 Output Total 200 / 1700 275 / 275 Balance 800 / 1035 1140 / 1155 Physical Exam Narrative: EXAM NARRATIVE: Patient seen lying in bed watching TV. Not as talkative as he was yesterday. Oropharynx/lips remained dry. Regular rhythm. Catheter remains in place with a light kenzie-colored urine. Awake and alert, smiling, likes to interrupt conversation and make sure his questions are asked but does it pleasantly. Primary focus is when can the catheter come out. His lips are dry, he keeps his mouth open while he is watching TV. Extraocular movements are intact. Lungs are clear. Abdomen is rotund but soft, nontender. Normal external genitalia. Urine is tea colored with darker clots noted in the bag and tubing. Urinary Catheter Management^: Madrigal: Cath Placed During This Visit: yes Reason for Continuing Indwelling Catheter: Acute Urinary Retention or Obstruction Urinary Catheter Date of Insertion: 01/26/21 Urinary Catheter Time of Insertion: 15:57 Data : 01/28/21 04:50 01/28/21 04:50 Micro: Microbiology 01/26/21 16:25 Urine Culture - Preliminary Urine,Clean Catch Gram Negative Rods 01/26/21 16:43 Blood Culture - Preliminary Blood 01/26/21 16:45 Blood Culture - Preliminary Blood A&P Assessment and plan (1) Cystitis: With hematuria Status: Acute (2) BPH (benign prostatic hyperplasia): Status: Chronic (3) Hematuria: Status: Acute (4) Dementia of frontal lobe type: Status: Chronic (5) COPD (chronic obstructive pulmonary disease): Status: Acute Qualifiers: COPD type: unspecified COPD Qualified Code(s): J44.9 - Chronic obstructive pulmonary disease, unspecified Additional A&P Information Bladder irrigation continuing only intermittently now Continue Rocephin Follow-up urine culture Will need outpatient urology follow-up On finasteride and Flomax Decreased rate of fluids Monitor hemoglobin for further drop He meets SIRS/sepsis criteria with leukocytosis and tachycardia although responded quickly to fluids and other care As needed nebulizer treatment SCDs for DVT prophylaxis currently given hematuria Monitor for more prominent symptoms of his frontal lobe dementia. Plans were reviewed with nursing Supportive care otherwise Anticipate disposition back to skilled facility likely tomorrow pending results of culture Full code Attestations Medical Necessity Statement*: Requires ongoing inpatient stay for continued management of gross hematuria and urinary tract infection related to catheter. Plans are as noted above. Coding Level of Care Code Acute Measurement Advisor for [facility] Fwd Diagnoses Cystitis N30.90 BPH (benign prostatic hyperplasia) N40.0 Hematuria R31.9 Dementia of frontal lobe type G31.09; F02.80 COPD (chronic obstructive pulmonary disease) J44.9 COPD type: unspecified COPD
[2021-01-29] VITALS (9 sets, daily range): BP systolic 137–168; BP diastolic 67–88; PULSE 74–119; RESP 16–18; TEMP 36.4–37; O2SAT 93–96
[2021-01-29] MEDS: acetaminophen 325 mg Tablet 650 MG PO ×3 (01:40→14:22)
[2021-01-29] MEDS: pantoprazole DR 40 mg Tablet PO (05:06)
[2021-01-29 06:58] LABS: Basophils # 0.1 10^3/uL (0.0-0.1); Basophils % 0.8 %; Eosinophils # 0.4 10^3/uL (0.0-0.8); Eosinophils % 5.3 %; Hematocrit 37.9 % (42.0-52.0); Hemoglobin 11.6 g/dL (11.7-16.6); Lymphocytes # 0.9 10^3/uL (0.8-4.8); Lymphocytes % 12.1 %; Mean Corpuscular HGB Conc 30.6 g/dL (30.0-36.0); Mean Corpuscular Hemoglobin 25.3 pg (28.0-34.0); Mean Corpuscular Volume 82.6 fL (80-94); Mean Platelet Volume 11.3 fL (7.4-10.4); Monocytes # 0.9 10^3/uL (0.2-0.9); Monocytes % 12.1 %; Neutrophils # 5.05 10^3/uL (1.8-7.7); Neutrophils % 69.2 %; Nucleated Red Blood Cells % 0 %; Platelet Count 248 10^3/cmm (130-400); Red Blood Count 4.59 10^6/uL (4.1-5.3); Red Cell Distribution Width 14.6 % (12.1-15.1); White Blood Count 7.3 10^3/uL (4.0-10.0)
[2021-01-29] MEDS: aspirin 81 mg EC Tablet PO (08:53)
[2021-01-29] MEDS: sennosides-docusate Tablet 1 TAB PO (08:53)
[2021-01-29] MEDS: cefTRIAXone 1,000 MG in sodium chloride 0.9% (plus) 50 ML 100 MG IV (08:54)
[2021-01-29] MEDS: sodium chloride 0.9% 1,000 ML 30 ML IV (12:44)
--- NOTE | 2021-01-29 14:00 | USR_ITS ---
PROCEDURE INFORMATION: Exam: US Pelvis Limited, Male Exam date and time: 01/29/2021 2:23 PM Age: 75 years old Clinical indication: Other: Pelvic pain; Additional info: Gu pain/pinzon placement verification TECHNIQUE: Imaging protocol: Real-time pelvic ultrasound with image documentation. COMPARISON: CT abdomen pelvis w con* [id number] 01/26/2021 6:38 PM FINDINGS: Urinary bladder: Distended. Rounded prominence in the region of the urinary bladder base, possibly related to prosthetic nodularity. Pinzon catheter not identified. US/US bladder [id number] IMPRESSION: 1. Pinzon catheter not identified. 2. Rounded prominence in the region of the urinary bladder base, possibly related to prosthetic nodularity.
--- NOTE | 2021-01-29 14:09 | P.PN_ITS ---
Subjective Subjective: Interval history: Patient complaining of wanting the catheter out. Also complaining of some abdominal discomfort. Reviewed the case over the phone with Dr. Beltran. He recommended checking a bladder ultrasound to see if we could verify the Madrigal balloon placement. Catheter was draining urine but with abdominal distention was concerned. CT in the abdomen had originally shown the Madrigal catheter in the prostate. It was advanced forward by report. Ultrasound noted a high bladder volume and was unable to see the bulb with a Madrigal catheter. I subsequently proceeded to evaluate the catheter directly. There were about 6 mL of fluid withdrawn from the bulb. Catheter was advanced forward almost to the end of the urethral Madrigal tubing before a larger pocket of urine was obtained. Approximately 1800 mL of urine were obtained. During the process there was passage of several blood clots from the urethral meatus itself. Patient had burning pain and discomfort in his bladder and urethra but this passed after a few minutes. Did prep the patient and clean catheter tubing prior to more advanced insertion and use sterile gloves. The lock for the Madrigal catheter had to be moved up about 7 inches. Abdominal discomfort subsequently resolved as did the degree of abdominal distention. Plan had been to discharge patient today but with the acute events will monitor overnight. He will need follow-up with Dr. Beltran. Vitals/I&O/Wt Last Vital Signs Temp 97.5 F L 01/29/21 12:00 Pulse 74 01/29/21 12:00 Resp 18 01/29/21 12:00 BP 161/88 01/29/21 12:00 Pulse Ox 93 01/29/21 12:00 01/28/21 01/29/21 01/29/21 22:59 06:59 14:59 Intake Total 1140 / 1430 1000 / 2430 170 / 170 Output Total 800 / 1075 425 / 425 Balance 1140 / 1155 200 / 1355 -255 / -255 Physical Exam Urinary Catheter Management^: Madrigal: Cath Placed During This Visit: yes Reason for Continuing Indwelling Catheter: Accurate Measurement of Urinary Output in Critically Ill Patients Urinary Catheter Date of Insertion: 01/26/21 Urinary Catheter Time of Insertion: 15:57 Data : 01/29/21 06:44 01/28/21 04:50 Micro: Microbiology 01/26/21 16:43 Blood Culture - Preliminary Blood Coagulase negativ staphylococc 01/26/21 16:45 Blood Culture - Preliminary Blood Coagulase negativ staphylococc 01/26/21 16:25 Urine Culture - Final Urine,Clean Catch Proteus mirabilis A&P Assessment and plan (1) Displacement of Madrigal catheter: Associated with significant urine retention, abdominal distention and pain. Status: Acute Qualifiers: Encounter type: initial encounter Qualified Code(s): T83.021A - Displacement of indwelling urethral catheter, initial encounter (2) Proteus infection: Status: Acute (3) Cystitis: With hematuria Status: Acute (4) Hematuria: Status: Acute Qualifiers: Hematuria type: gross Qualified Code(s): R31.0 - Gross hematuria (5) BPH (benign prostatic hyperplasia): Status: Chronic Qualifiers: Lower urinary tract symptom presence: symptoms present Lower urinary tract symptom detail: urinary retention Qualified Code(s): N40.1 - Benign prost atic hyperplasia with lower urinary tract symptoms; R33.8 - Other retention of urine (6) 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 Beltran. Dr. Beltran recommends follow-up in approximately 1 week for further evaluation to decrease the time that he is to have the catheter in. Patient constantly ask for it to be out but I have explained to him the reasoning for this and he temporarily understands We will increase Flomax dosing to 0.8, continue finasteride Continue Rocephin Not unexpected if he has further blood clots from the meatus Stop fluids Recheck H&H in the morning Met SIRS/sepsis criteria at admission with leukocytosis and tachycardia although responded quickly to fluids and other care As needed nebulizer treatment SCDs for DVT prophylaxis currently given hematuria Monitor for more prominent symptoms of his frontal lobe dementia. Plans were reviewed with nursing Supportive care otherwise Anticipate disposition back to skilled facility likely tomorrow pending results of culture Full code Patient was kept informed plans for the day Attestations Medical Necessity Statement*: Requires ongoing inpatient management for reasons noted above. He had significant urinary retention with Madrigal catheter in place and we will watch him overnight to ensure no further issues before plan transfer back to facility with catheter. Coding Level of Care Code Acute [employer] for [facility] Diagnoses Displacement of Madrigal catheter T83.021A Encounter type: initial encounter Proteus infection A49.8 Cystitis N30.90 Hematuria R31.0 Hematuria type: gross BPH (benign prostatic hyperplasia) N40.1; R33.8 Lower urinary tract symptom presence: symptoms present Lower urinary tract symptom detail: urinary retention Dementia of frontal lobe type G31.09; F02.80 COPD (chronic obstructive pulmonary disease) J44.9 COPD type: unspecified COPD
--- NOTE | 2021-01-29 17:10 | PC.NURSE ---
patient had bladder ultrasound performed for placement of catheter balloon. indicated volume in bladder was 640mL and balloon could not be visualized. manual irrigation was performed 3 times, with limited success, resulting in only 200mL return of urine. Dr Guzmán requested supplies and assistance. after the Dr sterilized the penis with iodine and donned sterile gloves this nurse deflated the balloon of the pinzon getting 6ml in the syringe and the dr advanced the catheter further until the full 37 cm of the tube was in the penis. with advancement the dr got an immediate return of urine and this nurse inflated the balloon with 10ml of saline. dr was able to draw back out 16cm of the pinzon tube and then this nurse attached a new stat lock higher up on the thigh for stability. this nurse and the dr stayed at bedside with the patient, and clamped the tube at one point before releasing the tube and allowing urine to drain once more. this nurse emptied 1300ml from the pinzon bag, while noting more urine was continuing to drain slowly into the bag. patient expressed relief from pain and discomfort. patient is resting comfortable in bed watching tv. will continue to monitor.
--- NOTE | 2021-01-29 17:57 | USR_ITS ---
PROCEDURE INFORMATION: Exam: US Abdomen; Limited Exam date and time: 01/29/2021 7:13 PM Age: 75 years old Clinical indication: Device placement; Urinary device; Other: Pinzon placement; Additional info: Check placement of pinzon catheter balloon TECHNIQUE: Imaging protocol: US abdomen. Real time ultrasound with image documentation. Limited exam focused on the region of clinical interest. COMPARISON: CT abdomen pelvis w con* [id number] 01/26/2021 6:38 PM FINDINGS: Bladder: A Pinzon catheter is present. The bladder appears decompressed. US/US bladder [id number] IMPRESSION: Pinzon catheter is present, its balloon appears within the bladder lumen.
[2021-01-29] MEDS: tamsulosin 0.4 mg Capsule PO (18:20)
[2021-01-29] MEDS: finasteride 5 mg Tablet PO (20:01)
[2021-01-30 04:33] VITALS: BP 158/87; PULSE 84; RESP 17; TEMP 36.6; O2SAT 96
[2021-01-30] MEDS: pantoprazole DR 40 mg Tablet PO (05:18)
[2021-01-30 06:58] LABS: Hematocrit 39.5 % (42.0-52.0); Hemoglobin 12.1 g/dL (11.7-16.6)
[2021-01-30 07:48] VITALS: PULSE 84; RESP 16; O2SAT 96
[2021-01-30 08:00] VITALS: BP 143/68; PULSE 65; RESP 17; TEMP 36.7; O2SAT 96
[2021-01-30] MEDS: cefTRIAXone 1,000 MG in sodium chloride 0.9% (plus) 50 ML 100 MG IV (09:55)
[2021-01-30] MEDS: aspirin 81 mg EC Tablet PO (09:55)
[2021-01-30] MEDS: tamsulosin 0.4 mg Capsule PO (09:55)
[2021-01-30] MEDS: sennosides-docusate Tablet 1 TAB PO (09:55)
--- NOTE | 2021-01-30 11:54 | P.DS_ITS ---
Discharge Providers Date of Admission: 01/26/21 20:28 Date of Discharge: January 30, 2021 Attending Provider at Admission: Song Jones MD Attending Provider at Discharge: Monica Guzmán MD Primary Care Provider: Dominic Adams DO Diagnoses at Discharge Discharge Diagnosis (1) Displacement of Pinzon catheter: Status: Acute Qualifiers: Encounter type: initial encounter Qualified Code(s): T83.021A - Displacement of indwelling urethral catheter, initial encounter (2) Proteus infection: Status: Acute (3) Cystitis: Status: Acute (4) Hematuria: Status: Acute Qualifiers: Hematuria type: gross Qualified Code(s): R31.0 - Gross hematuria (5) BPH (benign prostatic hyperplasia): Status: Chronic Qualifiers: Lower urinary tract symptom presence: symptoms present Lower urinary tract symptom detail: urinary retention Qualified Code(s): N40.1 - Benign prostatic hyperplasia with lower urinary tract symptoms; R33.8 - Other retention of urine (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 He has prostatic hypertrophy and I suspect that although urine was obtained it was difficult to get through the prostate. Attempted replacement Pinzon was done in the emergency room. It was noted to be in the prostate and urethral junction. It was advanced further. Unclear what bladder volumes were obtained with catheter placement. Patient was started on Rocephin. Urine cultures grew out Proteus. Plan had been for discharge initially on January 29 as he was doing better. He however develop increasing abdominal pain particularly in the lower quadrants and suprapubic region. This was associated with some bilateral flank pain and increasing abdominal girth and tympany with percussion. Bladder ultrasound showed significant urinary retention despite the catheter placement. Pinzon catheter was advanced significantly and ultimately with return of approximately 1800 cc of urine. Appropriate placement was confirmed with bladder ultrasound again. Marking was placed to indicate a general region that the tubing should be at to be above the prostate and in the bladder. It is not a specific location. As long as the line is within a a couple of inches of the meatus it should be okay. If it is more than this placement should be confirmed. 1 of 2 bottles from 2 different blood culture sets is growing coag negative staph. Suspect contamination based on clinical condition. Antibiotics will be transitioned to Augmentin. A repeat blood culture set was ordered on the day of discharge and will need to be followed up. Flomax dosing was increased to 0.4 twice daily and finasteride has been continued. Case was discussed with Dr. Beltran a couple of times on January 29. He will see Ben in a week and determine further Pinzon care. Pinzon is to remain in place until that follow-up and may be required after that as well. He may require reminders that the catheter has to remain in place. Should he complain of progressively increasing acute abdominal pain appropriate Pinzon placement should be confirmed. Remainder of his medications have stayed the same. He was awake and alert with clear lungs, regular rhythm. Abdomen at the time of discharge is soft, rotund and nontender in the lower quadrants or flank areas. Suprapubic region is nontender. No bright red blood noted at the meatus. Physical Exam Urinary Catheter Management^: Pinzon: Cath Placed During This Visit: yes Reason for Continuing Indwelling Catheter: Other Urinary Catheter Date of Insertion: 01/26/21 Urinary Catheter Time of Insertion: 15:57 Discharge Data Data Completed and Pending: Completed Studies During Hospitalization Category Date Time Status CT abdomen pelvis w con* [id number] Urge nt Cat Scan 01/26/21 17:25 Completed XR chest 1V niles ble [id number] Stat Exams 01/26/21 16:06 Completed US bladder [id number] Urgent Ultrasound 01/29/21 14:00 Completed [place] bladder [id number] Urgent Ultrasound 01/29/21 17:57 Completed Pending at discharge Category Date Time Status Blood Culture Sta t Lab 01/26/21 16:45 Results Laboratory Last Values WBC 7.3 10^3/uL (4.0- 10.0) 01/29/21 06:44 RBC 4.59 10^6/uL (4.1 -5.3) 01/29/21 06:44 Hgb 12.1 g/dL (11.7-1 6.6) 01/30/21 06:43 Hct 39.5 % (42.0-52.0 ) L 01/30/21 06:43 MCV 82.6 fL (80-94) 01/29/21 06:44 MCH 25.3 pg (28.0-34. 0) L 01/29/21 06:44 MCHC 30.6 g/dL (30.0-3 6.0) 01/29/21 06:44 RDW 14.6 % (12.1-15.1 ) 01/29/21 06:44 Plt Count 248 10^3/cmm (130 -400) 01/29/21 06:44 MPV 11.3 fL (7.4-10.4 ) H 01/29/21 06:44 Neut % (Auto) 69.2 % 01/29/21 06:44 Lymph % (Auto) 12.1 % 01/29/21 06:44 [place] % (Auto) 12.1 % 01/29/21 06:44 Eos % (Auto) 5.3 % 01/29/21 06:44 Baso % (Auto) 0.8 % 01/29/21 06:44 Neut # (Auto) 5.05 10^3/uL (1.8 -7.7) 01/29/21 06:44 Lymph # (Auto) 0.9 10^3/uL (0.8- 4.8) 01/29/21 06:44 [place] # (Auto) 0.9 10^3/uL (0.2- 0.9) 01/29/21 06:44 Eos # (Auto) 0.4 10^3/uL (0.0- 0.8) 01/29/21 06:44 Baso # (Auto) 0.1 10^3/uL (0.0- 0.1) 01/29/21 06:44 Nucleated RBC % (a uto) 0 % 01/29/21 06:44 Nucleated RBCs # 0.0 /100WBC 01/29/21 06:44 Sodium 140 mmol/L (136-1 45) 01/28/21 04:50 Potassium 3.6 mmol/L (3.5-5 .1) 01/28/21 04:50 Chloride 105 mmol/L (98-10 7) 01/28/21 04:50 Carbon Dioxide 24 mmol/L (22-29) 01/28/21 04:50 Anion Gap 14.6 (5-19) 01/28/21 04:50 BUN 20 mg/dL (8-23) 01/28/21 04:50 Creatinine 0.7 mg/dL (0.7-1. 2) 01/28/21 04:50 GFR Calculation Not Reportable 01/28/21 04:50 Glucose 96 mg/dL (65-115) 01/28/21 04:50 Calculated Osmolal ity 292 mOsm/kg (285- 295) 01/28/21 04:50 Lactic Acid 1.7 mmol/L (0.5-2 .2) 01/26/21 16:45 Calcium 8.2 mg/dL (8.5-10 .5) L 01/28/21 04:50 Total Bilirubin 0.4 mg/dL (0.15-1 .2) 01/26/21 16:40 AST 13 U/L (0-40) 01/26/21 16:40 ALT 11 U/L (0-41) 01/26/21 16:40 Alkaline Phosphata se 144 IU/L (40-130) H 01/26/21 16:40 Total Protein 8.1 g/dL (6.6-8.7 ) 01/26/21 16:40 Albumin 3.9 g/dL (3.5-5.2 ) 01/26/21 16:40 Globulin 4.2 g/dL (1.3-4.6 ) 01/26/21 16:40 Free PSA 0.7 ng/mL 01/26/21 16:45 % Free PSA Not calculated % (calc) (>25) 01/26/21 16:45 Total PSA 13.0 ng/mL (< OR = 4.0) H 01/26/21 16:45 Urine Color Yellow (Yellow) 01/26/21 16:25 Urine Appearance Cloudy (CLEAR) 01/26/21 16:25 Urine pH 8 (5-7) H 01/26/21 16:25 Ur Specific Gravit y 1.015 (1.005-1.0 30) 01/26/21 16:25 Urine Protein 2+ (Negative) H 01/26/21 16:25 Urine Glucose (UA) Norm (Normal) 01/26/21 16:25 Urine Ketones Negative (Negati ve) 01/26/21 16:25 Urine Blood 3+ (Negative) H 01/26/21 16:25 Urine Nitrate Negative (Negati ve) 01/26/21 16:25 Urine Bilirubin Neg (Negative) 01/26/21 16:25 Prot Sulfosalicyli c Acd Negative (Negati ve) 01/26/21 16:25 Urine Urobilinogen Norm mg/dL (Negat veronique) 01/26/21 16:25 Ur Leukocyte Demetria ase 2+ (Negative) H 01/26/21 16:25 Urine RBC 25-40 /hpf (0-2) H 01/26/21 16:25 Urine WBC >100 /hpf (0-5) H 01/26/21 16:25 Ur Squamous Epith Cells 0-4 /hpf (0-5) H 01/26/21 16:25 Triple Phos Tasneem ls 15-25 /hpf H 01/26/21 16:25 Amorphous Sediment Not Reportable 01/26/21 16:25 Urine Bacteria 4+ /hpf (NONE) H 01/26/21 16:25 Urine Mucus 1+ /hpf 01/26/21 16:25 Microbiology 01/26/21 16:43 Blood Blood Culture - Preliminary Coagulase negativ staphylococc 1 of 2 bottles, suspect contamination 01/26/21 16:45 Blood Blood Culture - Preliminary Coagulase negativ staphylococc 1 of 2 bottles, suspect contamination 01/26/21 16:25 Urine,Clean Catch Urine Culture - Final Proteus mirabilis Vitals: Last Vital Signs Temp 98.0 F 01/30/21 08:00 Pulse 65 01/30/21 08:00 Resp 17 01/30/21 08:00 BP 143/68 01/30/21 08:00 Pulse Ox 96 01/30/21 08:00 Discharge Plan Discharge Patient Disposition: Xfer SNF Condition: Stable Prescriptions: New Augmentin 500-125 mg tablet 1 tab PO Q8H Qty: 15 RF: 0 Lactobacillus acidophilus 460 mg (20 billion cell) capsule 460 mg PO BID Qty: 20 RF: 0 Stool Softener-Laxative 8.6-50 mg Tablet 1 tab PO DAILY Qty: 30 RF: 0 Continued omeprazole 20 mg tablet,delayed release (DR/EC) 20 mg PO DAILY@05 RF: 0 acetaminophen 325 mg capsule 650 mg PO Q4H PRN (Reason: PAIN/FEVER) RF: 0 finasteride 5 mg tablet 5 mg PO DAILY@20 RF: 0 bisacodyl 10 mg suppository 10 mg TN DAILY PRN (Reason: Constipation) RF: 0 magnesium hydroxide [Milk of Magnesia] 400 mg/5 mL suspension 30 ml PO DAILY PRN (Reason: Constipation) RF: 0 polyvinyl alcohol 1.4 % Drops 3 drp ophthalmic (eye) QID PRN (Reason: Dry Eyes) RF: 0 [place] Cough Drops 7.6 mg Lozenge 7.6 mg MUCOUS MEMBRANE Q2H PRN (Reason: Cough) RF: 0 calcium carbonate [Tums] 200 mg calcium (500 mg) Tablet,Chewable 1,000 mg PO QID PRN (Reason: Indigestion) RF: 0 Enema Disposable 19-7 gram/118 mL Enema 118 ml TN DAILY PRN (Reason: Constipation) RF: 0 aspirin 81 mg Tablet,Delayed Release (Dr/Ec) 81 mg PO DAILY@08 RF: 0 Changed Flomax 0.4 mg capsule 0.4 mg PO BID Qty: 60 RF: 0 Discharge Orders: Discharge Order (Routine); Ordered 01/30/21 Ordered By: Monica Guzmán Referrals: German Beltran MD [Physician] - 1 week (new patient, BMP on finasteride and flomax, urinary retention, new pinzon with trauma/hematuria. Discussed with Dr Beltran.) Dominic Adams DO [Primary Care Provider] - 4-7 days (Call Sunday and schedule an appointment for 4 to 7 days.) Discharge Diet: Usual diet Discharge Activity: Resume usual activity Patient Instructions: Urinary Retention in Men (GEN), Pinzon Catheter Placement and Care (DC), Acute Hematuria (DC), Opioid Safety Activity Restrictions/Additional Instructions: Pinzon catheter is to remain in place until follow-up with Dr. Beltran. Patient has significant prostatic hypertrophy. Developed urinary retention. With Pinzon catheter placement had some trauma with catheter balloon being at the level of the prostate and urethral junction at least 2 occasions. Most recent occasion was on January 29. There is a black marker line approximately 1-1/2 cm from the meatus indicating the general area that the Pinzon catheter tubing should be to be appropriately placed. Placement was confirmed via bladder ultrasound on 01/29. You do not need to keep catheter tubing exactly the same distance as it presently is from the meatus. This marker was intended to be a general indication that the tubing is in the right place. If this black line is more than a couple of inches of from the meatus Pinzon catheter placement needs to be confirmed. When the catheter balloon is within the region of the prostate, flow of urine decreases significantly but remains. As patient develops urinary retention he begins to have significant suprapubic pain spreading throughout his abdomen and even into his back. His abdomen will become more distended and taut rather than being soft. As is understandable, he would like the catheter removed but I have explained that it has to stay in at least until he follows up with Dr. Beltran. He understands current plans of care. Denies pain today. He may have some blood clots from his meatus appear in even some dribbling but this has slowed down considerably. He was treated with Rocephin in the hospital and will be transition to Augmentin outpatient. He is to complete 5 additional days of antibiotics. Discharge Attestations Time Spent in Discharge Care*: greater than 30 min Specific Discharge Activities: educating patient, discussing with lining caser/social workers/dc planners, documenting/other paperwork and evaluating patient/reviewing data Status at Discharge: Cognitive status at discharge: cognitively intact , Behavioral status at discharge: cooperative , Overall status at discharge: patient is not back to baseline (Has a Pinzon catheter now) Quality Metrics Clinical Quality Measures During this hospital stay, did patient experience: None Coding Level of Care Code Acute [facility] DC note Diagnoses Displacement of Pinzon catheter T83.021A Encounter type: initial encounter Proteus infection A49.8 Cystitis N30.90 Hematuria R31.0 Hematuria type: gross BPH (benign prostatic hyperplasia) N40.1; R33.8 Lower urinary tract symptom presence: symptoms present Lower urinary tract symptom detail: urinary retention Dementia of frontal lobe type G31.09; F02.80 COPD (chronic obstructive pulmonary disease) J44.9 COPD type: unspecified COPD
[2021-01-30 12:09] VITALS: BP 138/62; PULSE 67; RESP 18; TEMP 36.8; O2SAT 99
[2021-01-30 13:23] VITALS: BP 138/62; PULSE 67; RESP 18; TEMP 36.8; O2SAT 99
--- NOTE | 2021-01-30 13:33 | PC.NURSE ---
report was called to Elder Lawton RN at [facility], discharge packet gathered compiled to be transported with patient. IV was removed tip intact, bleeding controlled with 2x2. patient was taken by medical transport in wheelchair to be delivered to the [facility].
== END 2021-01-30 13:35 | disposition skilled nursing facility (03) | DRG 872 ==
LOC: ER 20:30 → MEDSURG 01-27 07:52
PROVIDERS: Nurse Practitioner Family; Admitting Provider Internal Medicine; Emergency Provider Physician Assistant; PCP Internal Medicine; Visit Provider Hospitalist
DX: A41.9 Sepsis, unspecified organism (principal); N30.01 Acute cystitis with hematuria; N10 Acute pyelonephritis; N40.1 Benign prostatic hyperplasia with lower urinary tract symptoms; B96.4 Proteus (mirabilis) (morganii) as the cause of diseases classified elsewhere; R33.8 Other retention of urine; T83.021A Displacement of indwelling urethral catheter, initial encounter; Y73.1 Therapeutic (nonsurgical) and rehabilitative gastroenterology and urology devices associated with adverse incidents; Y92.230 Patient room in hospital as the place of occurrence of the external cause; K59.00 Constipation, unspecified; G31.09 Other frontotemporal neurocognitive disorder; F02.80 Dementia in other diseases classified elsewhere, unspecified severity, without behavioral disturbance, psychotic disturbance, mood disturbance, and anxiety; J44.9 Chronic obstructive pulmonary disease, unspecified; Z79.82 Long term (current) use of aspirin; Z86.16 Personal history of COVID-19
CPT/HCPCS: 36415; 51702; 71045; 74177; 76857; 80048; 80053; 81001; 83605; 84154; 85014; 85018; 85025; 87040; 87077; 87086; 87186; 87205; 93005; 96365; 97116; 97161; 99285; J0696; J7030; Q9967

== ENCOUNTER 2021-02-24 09:21 | Inpatient (IN) | payer MEDICAID, SELFPAY ==
[2021-02-24] VITALS (32 sets, daily range): BP systolic 120–158; BP diastolic 67–130; PULSE 116–135; RESP 20–39; TEMP 36.9–38.6; O2SAT 90–100; BMI 25.8
--- NOTE | 2021-02-24 09:29 | CT_ITS ---
WS: [id number] CT ABDOMEN AND PELVIS WITH CONTRAST HISTORY: abdominal pain TECHNIQUE: Imaging performed of the abdomen and pelvis with IV contrast. Single phase imaging of the abdomen. Coronal and sagittal reformats are submitted. All CT scans at [facility] use at least one of these dose optimization techniques: automated exposure control; mA and/or kV adjustment per patient size (includes targeted exams where dose is matched to clinical indication); or iterativ e reconstruction. IV CONTRAST: Omnipaque 300; 95 mL IV. Oral contrast: No DLP: 1990.16 mGy.cm COMPARISON: 01/26/2021, 05/11/2020 Quality of this examination is limited by motion artifact. Lower thorax: Dependent changes at the lung bases along with significant motion artifact. Small LEFT pleural effusion. Heart is moderately enlarged with coronary artery calcifications. No hiatal hernia. Liver/biliary system: Normal size with no intrahepatic dilatation. Gallbladder: Limited by motion. Grossly no enlargement. Pancreas: Atrophied. Spleen: Does not appear to be enlarged. There is significant artifact around the spleen from motion. Adrenal glands: Normal. Right kidney: Normal size kidney. Loss of the normal cortical medullary junction with marked perineph jenna stranding. Moderate hydronephrosis and hydroureter to the urinary bladder. Left kidney: Mild perinephric stranding with mild loss of the cortical medullary junction. Mild hydro ureteronephrosis. Ureter is dilated to the bladder. Aorta: Mild atherosclerosis with no aneurysm. Lymphadenopathy: None. Free fluid: None. GI tract: No obstruction. Abdominal wall: Marked thinning of the abdominal wall musculature. Pelvis: Marked distention of the urinary bladder extending over length of 17 cm. There is mixed densi ty in the dependent portion of the urinary bladder which may be debris or blood. Not likely neoplasm due to its dependent appearance. Prostate gland is significantly enlarged encroaching into the bladde r. There is a Madrigal catheter present. This Madrigal catheter balloon is just ended within the prostate u rethra. Similar to the prior examination. Bones: Ankylosing spondylitis. CT/CT abdomen pelvis w con* [id number] IMPRESSION: 1. Moderate bilateral hydroureteronephrosis and perinephric stranding, RIGHT g reater than LEFT. Suspect bilateral pyelonephritis. 2. Hydroureteronephrosis is likely secondary to an overly distended urinary bl adder. No obstructing stones identified. 3. Enlarged prostate gland with a Madrigal catheter balloon distended within the prostate urethra. Despite the Madrigal catheter urinary bladder continues to be di lated. Recommend repositioning this Madrigal catheter. 4. Debris within the urinary bladder may be bladder or related to infection. 5. Study is significantly compromised by motion. 6. Small LEFT pleural effusion is unchanged.
--- NOTE | 2021-02-24 09:29 | XR_ITS ---
WS: [id number] Portable AP upright chest, 02/24/2021 Clinical Data: possible sepsis Comparison: Portable chest, 01/26/2021. Findings: No nodules, masses or effusions are seen. The heart is normal. The pulmonary vascularity is not increased. No pneumothorax is seen. There is minimal left lower lobe atelectasis and/or minimal pneumonia. The aortic arch and descending aorta are tortuous. XR/XR chest 1V portable [id number] Impression: 1. Atherosclerosis. 2. Possible pneumonia and/or atelectasis over surface of left diaphragm.
--- NOTE | 2021-02-24 09:30 | ECG_ITS ---
[facility] Test Date: 2021-02-24 Pat Name: Ben Ochoa Department: Room: Gender: Male Central Processing Technician: : 1945 Requested By: Jazmin Phan Order Number: [id number] Brennon MD: Paulino Rodriguez M.D. Measurements Intervals [place] Rate: 116 P: 20 [place]: 150 QRS: 18 QRSD: 104 T: 46 QT: 323 QTc: 450 Interpretive Statements SINUS TACHYCARDIA POSSIBLE RIGHT VENTRICULAR CONDUCTION DELAY [RSR (QR) IN V1/V2] ABNORMAL RHYTHM ECG Compared to ECG 01/26/2021 17:55:31 No significant changes Electronically Signed On 02-24-2021 19:33:00 CDT by Paulino Rodriguez M.D. [id number] f
--- NOTE | 2021-02-24 09:31 | ED_ITS ---
Documented by User: PABLO Fang 02/24/21 22:18 HPI - General Adult General: Chief complaint: General Medical Stated complaint: POSSIBLE SEPSIS Time Seen by Provider: 02/24/21 09:21 Source: patient and EMS Mode of arrival: EMS Limitations: no limitations History of Present Illness: HPI narrative: Patient is a 75-year-old male with a history of COPD, Alzheimer's dementia, and BPH here via EMS for concerns of possible urosepsis. Patient is a resident at [facility]. According to report approximately 10 days ago he was diagnosed with a UTI and placed on Levaquin. snf noted today patient was tachycardic, slightly altered, and appeared febrile. EMS noted in route HRs in the 120-130s and tachypnea. He was reported afebrile but EMS states he felt warm. He currently has a Pinzon cath that he tells me was placed about two months ago due to urinary retention. Patient can tell me his name, , location, president, and current year. He tells me he is having some right sided abdominal pain. He was given IV zofran in route. Associated symptoms: Reports nausea; Deny chest pain, dyspnea, headache(s), malaise, rash, palpitations, syncope or vomiting Review of Systems Const: Denies: fever(s), chills, body aches, fatigue or malaise Eyes: Denies: change in vision Card: Denies: chest pain, palpitations, irregular heart rhythm, edema, lightheadedness, syncope, pre-syncope or dyspnea on exertion Resp: Denies: dyspnea, productive cough, non-productive cough, hemoptysis or chest congestion GI: Reports: abdominal pain and nausea; Denies: vomiting, diarrhea or change in stool character : Reports: flank pain and other (has pinzon catheter-has been draining normally); Denies: hematuria or genital pain Musc: Denies: neck pain or back pain Skin/Breast: Denies: rash Neuro: Denies: headache(s) or dizziness PFSH ED PFSH: Medical History BPH (benign prostatic hyperplasia) COPD (chronic obstructive pulmonary disease) Dementia of frontal lobe type DJD (degenerative joint disease) GERD (gastroesophageal reflux disease) History of 2019 novel coronavirus disease (COVID-19) Major depressive disorder, single episode, in full remission Proteus infection Urinary retention Ventricular premature beats Surgical History History of thoracentesis Chronic right pleural effusion which needed Donaldo drain which was removed by Dr. Hoover 2015 PEG (percutaneous endoscopic gastrostomy) status Family History Father Cancer Grandfather Myocardial infarction Other CAD (coronary artery disease) Social History Smoking and tobacco status: never smoked Alcohol intake: never Lives independently: No Marital status: History of recent travel: No Physical Exam Const: COMMON NORMALS: no acute distress, patient oriented x3, no limitations and alert GENERAL APPEARANCE: cooperative ORIENTATION/CONSCIOUSNESS: Yes awake, Yes oriented to person, Yes oriented to place and Yes oriented to time HENMT: COMMON NORMALS: normocephalic and atraumatic HEAD & SCALP: normocephalic and atraumatic Chest: COMMONS NORMALS: normal inspection of the chest Resp: COMMON NORMALS: normal respiratory effort and clear to auscultation bilaterally EFFORT & INSPECTION: Yes able to speak in complete sentences AUSCULTATION: clear to auscultation bilaterally Cardio: COMMON NORMALS: regular rhythm RATE: tachycardic RHYTHM: regular rhythm GI: COMMON NORMALS: Soft to palpation INSPECTION: Yes normal to inspection and Yes abdominal distension AUSCULTATION: Yes normoactive bowel sounds PALPATION: Yes Soft to palpation and Yes Tenderness to palpation present (GI) (throughout abdomen; no guarding present) Back/Pelvis: COMMON NORMALS: thoracic and lumbar spine normal to inspection, no thoracic nor lumbar tenderness and thoraco-lumbar ROM normal Extremity: COMMON NORMALS: no calf tenderness and no pedal edema Neuro: CHAI COMA SCALE: document GCS findings [place] coma scale eye opening: Spontaneous Chai coma scale verbal response: Orientated [place] coma scale motor response: Obey commands [place] coma scale total score: 15 COMMON NORMALS: patient oriented x3, CN's II-XII intact bilaterally, moves all extremities, no focal motor deficits and no sensory deficits noted SENSORIUM/ORIENTATION: Yes alert, Yes oriented to person, Yes oriented to place and Yes oriented to time GAIT: Yes Unable to assess gait Skin: COMMON NORMALS: no rashes or lesions noted GENERAL SKIN EXAM: no rashes or lesions noted Course Vital Signs: Vital signs: Vital Signs Temperature 97.8 F 02/25/21 16:00 Pulse Rate 120 H 02/25/21 16:00 Respiratory Rate 18 02/25/21 16:00 Blood Pressure 143/92 02/25/21 16:00 Pulse Oximetry 94 02/25/21 16:00 MDM - General Adult MDM Narrative: Medical decision making narrative: Patient is tachycardic with a white count of 20.7. His procalcitonin is over 20. His lactate is 5.3. IV antibiotics and sepsis fluid bolus initiated. We are still pending his chemistry and UA. CT abdomen/pelvis pending. CXR shows questionable small left lower lobe pneumonia. Dr. Guzman assumed care of patient as he will be an admit most likely to ICU. Lab Data: Labs: Lab Results 02/24/21 02/24/21 02/24/21 Range/Units 10:06 10:06 10:06 WBC 20.7 H (4.0-10.0) 10^3/ uL RBC 4.79 (4.1-5.3) 10^6/u L Hgb 12.2 (11.7-16.6) g/dL Hct 40.1 L (42.0-52.0) % MCV 83.7 (80-94) fL MCH 25.5 L (28.0-34.0) pg MCHC 30.4 (30.0-36.0) g/dL RDW 16.9 H (12.1-15.1) % Plt Count 161 (130-400) 10^3/c mm MPV 12.2 H (7.4-10.4) fL Neut % (Auto) 88.4 % Lymph % (Auto) 3.5 % [place] % (Auto) 4.1 % Eos % (Auto) 1.5 % Baso % (Auto) 0.4 % Neut # (Auto) 18.24 H (1.8-7.7) 10^3/u L Lymph # (Auto) 0.7 L (0.8-4.8) 10^3/u L [place] # (Auto) 0.9 (0.2-0.9) 10^3/u L Eos # (Auto) 0.3 (0.0-0.8) 10^3/u L Baso # (Auto) 0.1 (0.0-0.1) 10^3/u L Nucleated RBC % (a uto) 0 % Nucleated RBCs # 0.0 /100WBC Sodium 137 (136-145) mmol/L Potassium 4.6 (3.5-5.1) mmol/L Chloride 100 (98-107) mmol/L Carbon Dioxide 20 L (22-29) mmol/L Anion Gap 21.6 H (5-19) BUN 45 H (8-23) mg/dL Creatinine 4.0 H (0.7-1.2) mg/dL GFR Calculation Not Reportable Glucose 122 H (65-115) mg/dL Calculated Osmolal ity 297 H (285-295) mOsm/k g Lactic Acid 5.3 H* (0.5-2.2) mmol/L Calcium 8.8 (8.5-10.5) mg/dL Total Bilirubin 0.5 (0.15-1.2) mg/dL AST 18 (0-40) U/L ALT 9 (0-41) U/L Alkaline Phosphata se 104 (40-130) IU/L Creatine Kinase (39-308) U/L Total Protein 6.8 (6.6-8.7) g/dL Albumin 3.5 (3.5-5.2) g/dL Globulin 3.3 (1.3-4.6) g/dL Lipase 13 (13-60) U/L Procalcitonin 20.13 H (0-0.5) ng/mL TSH (0.27-4.20) uIU/ mL Urine Color (Yellow) Urine Appearance (CLEAR) Urine pH (5-7) Ur Specific Gravit y (1.005-1.030) Urine Protein (Negative) Urine Glucose (UA) (Normal) Urine Ketones (Negative) Urine Blood (Negative) Urine Nitrate (Negative) Urine Bilirubin (Negative) Urine Urobilinogen (Negative) mg/dL Ur Leukocyte Demetria ase (Negative) Urine RBC (0-2) /hpf Urine WBC (0-5) /hpf Ur Squamous Epith Cells (0-5) /hpf Amorphous Sediment Urine Bacteria (NONE) /hpf 02/24/21 02/24/21 Range/Units 10:06 11:14 WBC (4.0-10.0) 10^3/ uL RBC (4.1-5.3) 10^6/u L Hgb (11.7-16.6) g/dL Hct (42.0-52.0) % MCV (80-94) fL MCH (28.0-34.0) pg MCHC (30.0-36.0) g/dL RDW (12.1-15.1) % Plt Count (130-400) 10^3/c mm MPV (7.4-10.4) fL Neut % (Auto) % Lymph % (Auto) % [place] % (Auto) % Eos % (Auto) % Baso % (Auto) % Neut # (Auto) (1.8-7.7) 10^3/u L Lymph # (Auto) (0.8-4.8) 10^3/u L [place] # (Auto) (0.2-0.9) 10^3/u L Eos # (Auto) (0.0-0.8) 10^3/u L Baso # (Auto) (0.0-0.1) 10^3/u L Nucleated RBC % (a uto) % Nucleated RBCs # /100WBC Sodium (136-145) mmol/L Potassium (3.5-5.1) mmol/L Chloride (98-107) mmol/L Carbon Dioxide (22-29) mmol/L Anion Gap (5-19) BUN (8-23) mg/dL Creatinine (0.7-1.2) mg/dL GFR Calculation Glucose (65-115) mg/dL Calculated Osmolal ity (285-295) mOsm/k g Lactic Acid (0.5-2.2) mmol/L Calcium (8.5-10.5) mg/dL Total Bilirubin (0.15-1.2) mg/dL AST (0-40) U/L ALT (0-41) U/L Alkaline Phosphata se (40-130) IU/L Creatine Kinase 149 (39-308) U/L Total Protein (6.6-8.7) g/dL Albumin (3.5-5.2) g/dL Globulin (1.3-4.6) g/dL Lipase (13-60) U/L Procalcitonin (0-0.5) ng/mL TSH 5.48 H (0.27-4.20) uIU/ mL Urine Color Yellow (Yellow) Urine Appearance Cloudy (CLEAR) Urine pH 6 (5-7) Ur Specific Gravit y 1.015 (1.005-1.030) Urine Protein 1+ H (Negative) Urine Glucose (UA) Norm (Normal) Urine Ketones Negative (Negative) Urine Blood 3+ H (Negative) Urine Nitrate Negative (Negative) Urine Bilirubin Neg (Negative) Urine Urobilinogen Norm (Negative) mg/dL Ur Leukocyte Demetria ase 2+ H (Negative) Urine RBC 15-25 H (0-2) /hpf Urine WBC >100 H (0-5) /hpf Ur Squamous Epith Cells 0-4 H (0-5) /hpf Amorphous Sediment Not Reportable Urine Bacteria 1+ H (NONE) /hpf Imaging Data^: CXR: Radiologist's impression: [address] [id number] ReportSigned Patient: Ben Ochoa #: [id number]: 6Acct#:[id number]/Sex: 75 / MADM Date: 02/24/21Loc: [facility]/Bed:Attending Dr: Ordering Provider/Ordering MD: Jazmin Phan Date of Service: 02/24/21 Procedure(s): XR chest 1V portable [id number] Accession Number(s): [id number] Report Number: [id number] WS: [id number] Portable AP upright chest, 02/24/2021 Clinical Data: possible sepsis Comparison: Portable chest, 01/26/2021. Findings: No nodules, masses or effusions are seen. The heart is normal. The pulmonary vascularity is not increased. No pneumothorax is seen. There is minimal left lower lobe atelectasis and/or minimal pneumonia. The aortic arch and descending aorta are tortuous. XR/XR chest 1V portable [id number] Impression: 1. Atherosclerosis. 2. Possible pneumonia and/or atelectasis over surface of left diaphragm. Dictated By:Paulette See MDSigned By:Paulette See MDSigned Date/Time:02/24/21 0952DD/ 0950 Discharge Plan Discharge Patient Disposition: Admitted As Inpatient Admit Provider: Nixon Shah Clinical Impression: Acute pyelonephritis Sepsis Qualifiers: Sepsis type: sepsis due to unspecified organism Sepsis acute organ dysfunction status: with acute organ dysfunction Severe sepsis acute organ dysfunction type: acute renal failure Acute renal failure type: unspecified Severe sepsis shock status: with septic shock Qualified Code(s): A41.9 - Sepsis, unspecified organism Acute renal failure Qualifiers: Acute renal failure type: unspecified Qualified Code(s): N17.9 - Acute kidney failure, unspecified Condition: Stable Coding Level of Care Code ED Call Center Trainer for [facility] Fwd Exam Comprehensive Documented by User: Jesus Guzman DO 02/25/21 16:38 HPI - General Adult General: Chief complaint: General Medical Stated complaint: POSSIBLE SEPSIS Time Seen by Provider: 02/24/21 09:21 History of Present Illness: HPI narrative: 75-year-old male initially seen by repeat PA. He is septic. The elevated white count elevated procalcitonin UA shows cystitis. Reviewed Jazmin Phan's notes. Associated symptoms: Reports nausea; Deny chest pain, dyspnea, malaise, rash or vomiting Review of Systems Const: Denies: fever(s), chills, body aches, change in appetite, fatigue or malaise ENMT: Denies: throat pain, ear or mastoid pain, nasal discharge or nasal congestion Card: Denies: chest pain, edema, dyspnea on exertion or orthopnea Resp: Denies: dyspnea, productive cough or non-productive cough GI: Reports: abdominal pain and nausea; Denies: vomiting, hematemesis, coffee ground emesis, diarrhea, constipation, bloating, hematochezia or melena : Denies: flank pain, dysuria, urinary frequency or urinary urgency Skin/Breast: Denies: rash or pruritus PFSH ED PFS: Medical History BPH (benign prostatic hyperplasia) COPD (chronic obstructive pulmonary disease) Dementia of frontal lobe type DJD (degenerative joint disease) GERD (gastroesophageal reflux disease) History of 2019 novel coronavirus disease (COVID-19) Major depressive disorder, single episode, in full remission Proteus infection Urinary retention Ventricular premature beats Surgical History History of thoracentesis Chronic right pleural effusion which needed Donaldo drain which was removed by Dr. Hoover 2015 PEG (percutaneous endoscopic gastrostomy) status Family History Father Cancer Grandfather Myocardial infarction Other CAD (coronary artery disease) Social History Smoking and tobacco status: never smoked Alcohol intake: never Lives independently: No Marital status: History of recent travel: No Physical Exam Const: COMMON NORMALS: no acute distress GENERAL APPEARANCE: cooperative and comfortable ORIENTATION/CONSCIOUSNESS: Yes awake, Yes oriented to person, Yes oriented to place and Yes oriented to time HENMT: COMMON NORMALS: normocephalic, atraumatic and hearing grossly normal bilaterally HEAD & SCALP: normocephalic and atraumatic Neck/C-Spine: COMMON NORMALS: no JVD Resp: COMMON NORMALS: normal respiratory effort, No retractions, No use of accessory muscles and clear to auscultation bilaterally AUSCULTATION: clear to auscultation bilaterally Cardio: COMMON NORMALS: no JVD, regular rate, regular rhythm and No murmurs present (Cardio) RATE: regular rate RHYTHM: regular rhythm GI: COMMON NORMALS: Soft to palpation and No hepatosplenomegaly present AUSCULTATION: Yes normoactive bowel sounds PALPATION: Yes Soft to palpation, No Tenderness to palpation present (GI), No Guarding due to palpation present (GI) and Yes No hepatosplenomegaly present Extremity: COMMON NORMALS: normal to inspection, capillary refill normal, no clubbing, cyanosis or edema, no calf tenderness and no pedal edema Neuro: SENSORIUM/ORIENTATION: Yes oriented to person, Yes oriented to place and Yes oriented to time Skin: COMMON NORMALS: no rashes or lesions noted GENERAL SKIN EXAM: no rashes or lesions noted Course Vital Signs: Vital signs: Vital Signs Temperature 97.8 F 02/25/21 16:00 Pulse Rate 120 H 02/25/21 16:00 Respiratory Rate 18 02/25/21 16:00 Blood Pressure 143/92 02/25/21 16:00 Pulse Oximetry 94 02/25/21 16:00 MDM - General Adult MDM Narrative: Medical decision making narrative: Reviewed case discussed with Dr. Ohara. Will admit orders written. Lab Data: Labs: Lab Results 02/24/21 02/24/21 02/24/21 Range/Units 10:06 10:06 10:06 WBC 20.7 H (4.0-10.0) 10^3/ uL RBC 4.79 (4.1-5.3) 10^6/u L Hgb 12.2 (11.7-16.6) g/dL Hct 40.1 L (42.0-52.0) % MCV 83.7 (80-94) fL MCH 25.5 L (28.0-34.0) pg MCHC 30.4 (30.0-36.0) g/dL RDW 16.9 H (12.1-15.1) % Plt Count 161 (130-400) 10^3/c mm MPV 12.2 H (7.4-10.4) fL Neut % (Auto) 88.4 % Lymph % (Auto) 3.5 % [place] % (Auto) 4.1 % Eos % (Auto) 1.5 % Baso % (Auto) 0.4 % Neut # (Auto) 18.24 H (1.8-7.7) 10^3/u L Lymph # (Auto) 0.7 L (0.8-4.8) 10^3/u L [place] # (Auto) 0.9 (0.2-0.9) 10^3/u L Eos # (Auto) 0.3 (0.0-0.8) 10^3/u L Baso # (Auto) 0.1 (0.0-0.1) 10^3/u L Nucleated RBC % (a uto) 0 % Nucleated RBCs # 0.0 /100WBC Sodium 137 (136-145) mmol/L Potassium 4.6 (3.5-5.1) mmol/L Chloride 100 (98-107) mmol/L Carbon Dioxide 20 L (22-29) mmol/L Anion Gap 21.6 H (5-19) BUN 45 H (8-23) mg/dL Creatinine 4.0 H (0.7-1.2) mg/dL GFR Calculation Not Reportable Glucose 122 H (65-115) mg/dL Calculated Osmolal ity 297 H (285-295) mOsm/k g Lactic Acid 5.3 H* (0.5-2.2) mmol/L Calcium 8.8 (8.5-10.5) mg/dL Total Bilirubin 0.5 (0.15-1.2) mg/dL AST 18 (0-40) U/L ALT 9 (0-41) U/L Alkaline Phosphata se 104 (40-130) IU/L Creatine Kinase (39-308) U/L Total Protein 6.8 (6.6-8.7) g/dL Albumin 3.5 (3.5-5.2) g/dL Globulin 3.3 (1.3-4.6) g/dL Lipase 13 (13-60) U/L Procalcitonin 20.13 H (0-0.5) ng/mL TSH (0.27-4.20) uIU/ mL Urine Color (Yellow) Urine Appearance (CLEAR) Urine pH (5-7) Ur Specific Gravit y (1.005-1.030) Urine Protein (Negative) Urine Glucose (UA) (Normal) Urine Ketones (Negative) Urine Blood (Negative) Urine Nitrate (Negative) Urine Bilirubin (Negative) Urine Urobilinogen (Negative) mg/dL Ur Leukocyte Demetria ase (Negative) Urine RBC (0-2) /hpf Urine WBC (0-5) /hpf Ur Squamous Epith Cells (0-5) /hpf Amorphous Sediment Urine Bacteria (NONE) /hpf 02/24/21 02/24/21 Range/Units 10:06 11:14 WBC (4.0-10.0) 10^3/ uL RBC (4.1-5.3) 10^6/u L Hgb (11.7-16.6) g/dL Hct (42.0-52.0) % MCV (80-94) fL MCH (28.0-34.0) pg MCHC (30.0-36.0) g/dL RDW (12.1-15.1) % Plt Count (130-400) 10^3/c mm MPV (7.4-10.4) fL Neut % (Auto) % Lymph % (Auto) % [place] % (Auto) % Eos % (Auto) % Baso % (Auto) % Neut # (Auto) (1.8-7.7) 10^3/u L Lymph # (Auto) (0.8-4.8) 10^3/u L [place] # (Auto) (0.2-0.9) 10^3/u L Eos # (Auto) (0.0-0.8) 10^3/u L Baso # (Auto) (0.0-0.1) 10^3/u L Nucleated RBC % (a uto) % Nucleated RBCs # /100WBC Sodium (136-145) mmol/L Potassium (3.5-5.1) mmol/L Chloride (98-107) mmol/L Carbon Dioxide (22-29) mmol/L Anion Gap (5-19) BUN (8-23) mg/dL Creatinine (0.7-1.2) mg/dL GFR Calculation Glucose (65-115) mg/dL Calculated Osmolal ity (285-295) mOsm/k g Lactic Acid (0.5-2.2) mmol/L Calcium (8.5-10.5) mg/dL Total Bilirubin (0.15-1.2) mg/dL AST (0-40) U/L ALT (0-41) U/L Alkaline Phosphata se (40-130) IU/L Creatine Kinase 149 (39-308) U/L Total Protein (6.6-8.7) g/dL Albumin (3.5-5.2) g/dL Globulin (1.3-4.6) g/dL Lipase (13-60) U/L Procalcitonin (0-0.5) ng/mL TSH 5.48 H (0.27-4.20) uIU/ mL Urine Color Yellow (Yellow) Urine Appearance Cloudy (CLEAR) Urine pH 6 (5-7) Ur Specific Gravit y 1.015 (1.005-1.030) Urine Protein 1+ H (Negative) Urine Glucose (UA) Norm (Normal) Urine Ketones Negative (Negative) Urine Blood 3+ H (Negative) Urine Nitrate Negative (Negative) Urine Bilirubin Neg (Negative) Urine Urobilinogen Norm (Negative) mg/dL Ur Leukocyte Demetria ase 2+ H (Negative) Urine RBC 15-25 H (0-2) /hpf Urine WBC >100 H (0-5) /hpf Ur Squamous Epith Cells 0-4 H (0-5) /hpf Amorphous Sediment Not Reportable Urine Bacteria 1+ H (NONE) /hpf Discharge Plan Discharge Patient Disposition: Admitted As Inpatient Admit Provider: Nixon Shah Clinical Impression: Acute pyelonephritis Sepsis Qualifiers: Sepsis type: sepsis due to unspecified organism Sepsis acute organ dysfunction status: with acute organ dysfunction Severe sepsis acute organ dysfunction type: acute renal failure Acute renal failure type: unspecified Severe sepsis shock status: with septic shock Qualified Code(s): A41.9 - Sepsis, unspecified organism Acute renal failure Qualifiers: Acute renal failure type: unspecified Qualified Code(s): N17.9 - Acute kidney failure, unspecified Condition: Stable Coding Level of Care Code ED Call Center Trainer for [facility] Fwd Exam Comprehensive
[2021-02-24 10:16] LABS: Basophils # 0.1 10^3/uL (0.0-0.1); Basophils % 0.4 %; Eosinophils # 0.3 10^3/uL (0.0-0.8); Eosinophils % 1.5 %; Hematocrit 40.1 % (42.0-52.0); Hemoglobin 12.2 g/dL (11.7-16.6); Lymphocytes # 0.7 10^3/uL (0.8-4.8); Lymphocytes % 3.5 %; Mean Corpuscular HGB Conc 30.4 g/dL (30.0-36.0); Mean Corpuscular Hemoglobin 25.5 pg (28.0-34.0); Mean Corpuscular Volume 83.7 fL (80-94); Mean Platelet Volume 12.2 fL (7.4-10.4); Monocytes # 0.9 10^3/uL (0.2-0.9); Monocytes % 4.1 %; Neutrophils # 18.24 10^3/uL (1.8-7.7); Neutrophils % 88.4 %; Nucleated Red Blood Cells % 0 %; Platelet Count 161 10^3/cmm (130-400); Red Blood Count 4.79 10^6/uL (4.1-5.3); Red Cell Distribution Width 16.9 % (12.1-15.1); White Blood Count 20.7 10^3/uL (4.0-10.0)
--- NOTE | 2021-02-24 10:24 | PC.NURSE ---
Stool sent over to lab at 1023.
[2021-02-24] MEDS: iohexol 300 mg/mL 100 mL Btl IV (10:37)
[2021-02-24 10:44] LABS: Procalcitonin 20.13 ng/mL (0-0.5)
[2021-02-24 10:47] LABS: Lactic Sepsis W/Reflex 5.3 mmol/L (0.5-2.2)
[2021-02-24] MEDS: cefTRIAXone 2,000 MG in sodium chloride 0.9% (plus) 50 ML 100 MG IV (10:51)
[2021-02-24] MEDS: SODIUM CHLORIDE 0.9% 2884.9 ML IV (10:51)
[2021-02-24 10:56] LABS: Alanine Aminotransferase 9 U/L (0-41); Albumin Level 3.5 g/dL (3.5-5.2); Alkaline Phosphatase 104 IU/L (40-130); Aspartate Amino Transferase 18 U/L (0-40); Blood Urea Nitrogen 45 mg/dL (8-23); Calcium 8.8 mg/dL (8.5-10.5); Carbon Dioxide 20 mmol/L (22-29); Chloride 100 mmol/L (98-107); Globulin 3.3 g/dL (1.3-4.6); Glucose 122 mg/dL (65-115); Lipase 13 U/L (13-60); Osmolality Calculated 297 mOsm/kg (285-295); Sodium 137 mmol/L (136-145); Total Bilirubin 0.5 mg/dL (0.15-1.2); Total Protein 6.8 g/dL (6.6-8.7)
[2021-02-24 10:59] LABS: Anion Gap 21.6 (5-19); Potassium 4.6 mmol/L (3.5-5.1)
[2021-02-24 11:23] LABS: Add Urine Microscopic? YES; Bilirubin Urine Neg (Negative); Blood Urine 3+ (Negative); Glucose Urine UA Norm (Normal); Ketones Urine Negative (Negative); Leukocyte Esterase Urine 2+ (Negative); Nitrate Urine Negative (Negative); Protein Urine 1+ (Negative); Specific Gravity, Urine 1.015 (1.005-1.030); Urine Appearance Cloudy (CLEAR); Urine Color Yellow (Yellow); Urobilinogen Urine Norm (Negative); pH Urine 6 (5-7)
[2021-02-24 11:26] LABS: Bacteria Urine 1+ /hpf; RBC Urine 15-25 /hpf (0-2); Squamous Epithelial Cell Urine 0-4 /hpf (0-5); WBC Urine >100 /hpf (0-5)
[2021-02-24 11:27] LABS: Add Urine Culture? Yes
[2021-02-24 11:59] LABS: Reflex Lactate Order REFLEX LACTIC ORDERD
[2021-02-24] MEDS: vancomycin 1,000 MG in sodium chloride 0.9% 250 ML 250 MG IV (12:17)
--- NOTE | 2021-02-24 12:44 | P.HP_ITS ---
Providers/Chief Complaint Primary Care Provider: Dominic Adams DO Chief Complaint: POSSIBLE SEPSIS History of Present Illness Ben Ochoa is a 75 year old male [facility] resident at [facility] who presents with concerns of sepsis. According to nursing facility staff they found him clammy and pale this morning. He had had some loose stool and had vomited. His blood sugar was 155 and they noticed his respiratory rate was high. He had recently completed Levaquin for UTI issues yesterday. He had not had any fever but again complaining of some generalized pain in the last several days. He had recently been in the hospital and discharged January 30 secondary to cystitis with Proteus, and displacement of his Madrigal catheter. While in the emergency department he received a dose of Rocephin, initiation of IV fluids per sepsis protocol, and appropriate laboratory testing. His urinary catheter was found to not be appropriately positioned, and after repositioning of this a large amount of urine has been draining. Patient himself could not relate any significant history to me, although he was able to carry out a brief conversation. He has underlying dementia according to nursing facility staff making history is difficult and at baseline slurred speech. However, he usually is alert and oriented. 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 Review of Systems General: Reports: ROS unobtainable due to mental status (Patient with underlyi ng dementia) Medications/Allergies Home Medications Medication Instructions Recorded Confirmed Last Taken Type acetaminophen 325 mg capsule 650 mg PO Q4H PRN cap 11/27/19 02/24/21 01/26/21 01:04 History finasteride 5 mg tablet 5 mg PO DAILY@20 tab 11/27/19 02/24/21 02/23/21 History omeprazole 20 mg tablet,delayed 20 mg PO DAILY@05 11/27/19 02/24/21 02/24/21 History release bisacodyl 10 mg rectal suppository 10 mg MI DAILY PRN 03/01/20 02/24/21 Unknown History magnesium hydroxide 400 mg/5 mL 30 ml PO DAILY PRN ml 03/01/20 02/24/21 Unknown History oral suspension Enema Disposable 118 ml MI DAILY PRN 12/08/20 02/24/21 Unknown History [place] Cough Drops 7.6 mg MUCOUS MEMBRANE Q2H PRN 12/08/20 02/24/21 Unknown History calcium carbonate [Tums] 1,000 mg PO QID PRN 12/08/20 02/24/21 Unknown History polyvinyl alcohol 3 drp OPHTHALMIC (EYE) QID PRN 12/08/20 02/24/21 Unknown History aspirin 81 mg PO DAILY@08 01/26/21 02/24/21 02/24/21 History sennosides-docusate sodium [Stool 1 tab PO DAILY #30 tab 01/29/21 02/24/21 02/23/21 Rx Softener-Laxative] tamsulosin [Flomax] 0.4 mg PO BID #60 cap 01/30/21 02/24/21 02/24/21 Rx metoprolol succinate 25 mg 12.5 mg PO DAILY #15 tab 02/22/21 02/24/21 02/24/21 Rx tablet,extended release 24 hr Allergies Allergy/AdvReac Type Severity Reaction Status Date / Time tetanus toxoid, adsorbed Allergy Unknown unknown Verified 02/24/21 09:33 PFSH Acute PFSH: Medical History (Updated 02/24/21 @ 12:49 by Nixon Shah MD) BPH (benign prostatic hyperplasia) COPD (chronic obstructive pulmonary disease) Dementia of frontal lobe type DJD (degenerative joint disease) GERD (gastroesophageal reflux disease) History of 2019 novel coronavirus disease (COVID-19) Major depressive disorder, single episode, in full remission Proteus infection Urinary retention Ventricular premature beats Surgical History History of thoracentesis Chronic right pleural effusion which needed Donaldo drain which was removed by Dr. Hoover 2015 PEG (percutaneous endoscopic gastrostomy) status Family History Father Cancer Grandfather Myocardial infarction Other CAD (coronary artery disease) Social History Smoking and tobacco status: never smoked Alcohol intake: never Lives independently: No Marital status: History of recent travel: No Vitals/I&O/Wt Last Vital Signs Temp 98.5 F 02/24/21 09:21 Pulse 133 H 02/24/21 11:15 Resp 29 H 02/24/21 11:15 BP 139/82 02/24/21 11:15 Pulse Ox 100 02/24/21 11:15 02/23/21 02/24/21 02/24/21 22:59 06:59 14:59 Intake Total 50 / 50 Balance 50 / 50 Weight last 48 hrs Weight 96.162 kg Physical Exam Narrative: EXAM NARRATIVE: General exam demonstrates a pale white male, with a heart rate of approximately 130 with visible tachypnea. He is able to respond to name and answer a few questions but is confused. HEENT: Pupils equally round. Atraumatic and normocephalic. Oropharynx clear. Tongue dry. Neck is supple without lymphadenopathy or thyromegaly Cardiovascular tachycardic, regular. Sounds distant. No obvious murmur. Lungs diminished breath sounds bilaterally but clear to auscultation. Abdomen is soft. Positive bowel sounds are noted. No obvious organomegaly or tenderness. demonstrates catheter, draining a large amount of purulent appearing urine. He has had a large amount of urine drained, now marked at 1200 cc since the catheter was repositioned in the emergency department. Extremities show no cyanosis clubbing or edema, cap refill is brisk Skin no rash Neurologic: Confused but no obvious focal deficits. Sepsis: Is patient septic: Yes Focused sepsis exam performed: Yes Date exam was performed: 02/24/21 Time exam was performed: 12:54 Data : 02/24/21 10:06 02/24/21 10:06 Micro: Microbiology 02/24/21 10:20 Stool Lactoferrin - Final Stool Occult Blood (FIT) - Final 02/24/21 10:06 Blood Culture - Preliminary Blood SPECIMEN COLLECTED 02/24/21 10:06 Blood Culture - Preliminary Blood SPECIMEN COLLECTED Other data: Lactic acid is 5.3, calcium 8.8, LFTs normal Albumin 3.5 Lipase 13 Procalcitonin 20 Urinalysis shows greater than 100 whites, 15-25 reds Chest x-ray demonstrates probable small effusion on the left Abdominal pelvis CT demonstrated bilateral moderate hydroureteronephrosis and stranding right greater than left, distended urinary bladder despite Madrigal catheter. Madrigal catheter balloon in the prostate urethra. EKG demonstrates sinus tachycardia, normal axis, no acute changes A&P Assessment and plan (1) Sepsis: Qualifies for sepsis on admission criteria, and with lactate greater than 4 qualifies for septic shock. Blood cultures have been performed. Rocephin has been given. We will continue Rocephin, and add vancomycin secondary to history of gram- positive bacteremia in the recent past while we await blood cultures. Etiology appears to be renal, with evidence for cystitis and pyelonephritis. Urinary retention from malposition Madrigal may have contributed to urinary retention, hydronephrosis. Continue fluid resuscitation, monitoring closely for any evidence of fluid overload. The emergency department has ordered the 30/kg bolus. Following this maintenance fluids will be initiated. Status: Acute Qualifiers: Acute renal failure type: unspecified Sepsis acute organ dysfunction status: with acute organ dysfunction Sepsis type: sepsis due to unspecified organism Severe sepsis acute organ dysfunction type: acute renal failure Severe sepsis shock status: with septic shock Qualified Code(s): A41.9 - Sepsis, unspecified organism; R65.21 - Severe sepsis with septic shock; N17.9 - Acute kidney failure, unspecified (2) Acute pyelonephritis: See above Status: Acute (3) Acute renal failure: Hydration Reassess with laboratory in the a.m. Status: Acute Qualifiers: Acute renal failure type: unspecified Qualified Code(s): N17.9 - Acute kidney failure, unspecified (4) Urinary retention: Urinary catheter repositioned in the emergency department and now draining well Status: Acute (5) Displacement of Madrigal catheter: See above Status: Acute Qualifiers: Encounter type: initial encounter Qualified Code(s): T83.021A - Displacement of indwelling urethral catheter, initial encounter (6) Dementia of frontal lobe type: Status: Chronic Additional A&P Information Acute encephalopathy, superimposed on chronic dementia manifested by a worsened confusion in setting of sepsis. History of COPD. DuoNeb as needed Full code Heparin for DVT prophylaxis considering renal failure Protonix for GI prophylaxis. Attestations Medical Necessity Statement*: Will need greater than 2 midnight stay for evaluation and treatment of sepsis with septic shock. Critical Care Time: Critical Care Time (min): 55 Other Attestations: The high probability of a clinically significant, sudden or life threatening deterioration of the patient's [infectious, renal, neurologic] system(s) required my full and direct attention, intervention and personal management. The critical care time is as shown. This time is in addition to time spent performing any reported procedures but includes the following: [x] Data and vital sign review and interpretation [x] Patient assessment, examination and intervention [x] Documentation [x] Medication orders and management Coding Level of Care Code Acute Art Director for Chg Fwd Diagnoses Sepsis A41.9; R65.21; N17.9 Acute renal failure type: unspecified Sepsis acute organ dysfunction status: with acute organ dysfunction Sepsis type: sepsis due to unspecified organism Severe sepsis acute organ dysfunction type: acute renal failure Severe sepsis shock status: with septic shock Acute pyelonephritis N10 Acute renal failure N17.9 Acute renal failure type: unspecified Urinary retention R33.9 Displacement of Madrigal catheter T83.021A Encounter type: initial encounter Dementia of frontal lobe type G31.09; F02.80
--- NOTE | 2021-02-24 12:47 | PC.NURSE ---
Report called, ICU room not clean. ICU nurse to call back once room is clean.
[2021-02-24 13:28] LABS: Creatine Phosphokinase 149 U/L (39-308); Thyroid Stimulating Hormone 5.48 uIU/mL (0.27-4.20)
[2021-02-24] MEDS: heparin 5,000 unit/mL INJ 1 mL 5000 UNIT SUBCUT (14:27)
[2021-02-24] MEDS: sodium chloride 0.9% 1,000 ML 125 ML IV (14:27)
[2021-02-24] MEDS: vancomycin 500 MG in sodium chloride 0.9% (plus) 100 ML 200 MG IV (15:28)
--- NOTE | 2021-02-24 17:28 | PC.NURSE ---
Spoke to Dr. Shah regarding pt HR in the 130's. No new orders at this time, states to call if there are changes with an increasing HR.
[2021-02-24] MEDS: finasteride 5 mg Tablet PO (20:44)
[2021-02-24] MEDS: acetaminophen 325 mg Tablet 650 MG PO (23:41)
[2021-02-25] VITALS (57 sets, daily range): BP systolic 114–154; BP diastolic 70–109; PULSE 100–153; RESP 16–44; TEMP 36.6–37.4; O2SAT 86–99
[2021-02-25] MEDS: heparin 5,000 unit/mL INJ 1 mL 5000 UNIT SUBCUT ×2 (03:20→13:49)
[2021-02-25] MEDS: sodium chloride 0.9% 1,000 ML 125 ML IV ×2 (04:09→09:26)
[2021-02-25 04:10] LABS: Hematocrit 32.9 % (42.0-52.0); Hemoglobin 10.1 g/dL (11.7-16.6); Mean Corpuscular HGB Conc 30.7 g/dL (30.0-36.0); Mean Corpuscular Hemoglobin 25.7 pg (28.0-34.0); Mean Corpuscular Volume 83.7 fL (80-94); Mean Platelet Volume 12.1 fL (7.4-10.4); Platelet Count 108 10^3/cmm (130-400); Red Blood Count 3.93 10^6/uL (4.1-5.3); Red Cell Distribution Width 17.2 % (12.1-15.1); White Blood Count 10.9 10^3/uL (4.0-10.0)
[2021-02-25 04:25] LABS: Alanine Aminotransferase 10 U/L (0-41); Albumin Level 2.5 g/dL (3.5-5.2); Alkaline Phosphatase 92 IU/L (40-130); Anion Gap 13.4 (5-19); Aspartate Amino Transferase 17 U/L (0-40); Blood Urea Nitrogen 54 mg/dL (8-23); Calcium 7.7 mg/dL (8.5-10.5); Carbon Dioxide 21 mmol/L (22-29); Chloride 105 mmol/L (98-107); Glucose 110 mg/dL (65-115); Magnesium 1.3 mg/dL (1.7-2.3); Osmolality Calculated 295 mOsm/kg (285-295); Potassium 4.4 mmol/L (3.5-5.1); Sodium 135 mmol/L (136-145); Total Bilirubin 0.3 mg/dL (0.15-1.2); Total Protein 5.5 g/dL (6.6-8.7)
[2021-02-25 04:35] LABS: Absolute Neutrophil 5.5 10^3/cmm (1.4-6.5); Absolute Segmented Neutrophil 4.9 10/cmm (1.6-7.1); Band Neutrophils Absolute 0.5 10^3/cmm (0.0-1.2); Eosinophils 0 %; Lymphocytes 7 %; Lymphocytes Absolute 0.8 10^3/cmm (1.2-3.4); Platelet Estimate Decreased (Normal); Segmented Neutrophils 45 %; Total Cells Counted 100 (0-100)
--- NOTE | 2021-02-25 05:48 | ECG_ITS ---
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 Measurements Intervals [place] Rate: 153 P: 17 OK: 116 QRS: 20 QRSD: 105 T: 22 QT: 285 QTc: 455 Interpretive Statements SINUS TACHYCARDIA WITH SHORT OK INTERVAL WITH FREQUENT VENTRICULAR PREMATURE COMPLEXES, POSSIBLE ATRIAL FLUTTER INCOMPLETE RIGHT BUNDLE BRANCH BLOCK [90+ ms QRS DURATION, TERMINAL R IN V1/V2, 40+ ms S IN I/aVL/V4/V5/V6] NONSPECIFIC T-WAVE ABNORMALITY ABNORMAL RHYTHM ECG Compared to ECG 02/24/2021 09:34:09 Incomplete right bundle-branch block now present T-wave abnormality now present Electronically Signed On 02-25-2021 21:54:35 CDT by Paulino Rodriguez M.D. [id number]
[2021-02-25] MEDS: ondansetron 2 mg/ML SDV 2 mL 4 MG IVP ×2 (05:53→12:53)
[2021-02-25] MEDS: metoprolol tartrate 1 mg/1 mL SDV 5 mL 5 MG IV ×2 (06:32→16:42)
--- NOTE | 2021-02-25 06:36 | PC.NURSE ---
05 Dr. Roldan notified Increased HR 155-160 Pt nausea received Zofran EKG ordered 06 Pt c/0 Chest pain rated [address] Roldan no orders given EKG transmited for viewing [address] Roldan CP resolved nausea improved HR remain high 150-160's Lopressor ordered
[2021-02-25] MEDS: magnesium sulfate premix 2 GM/50 ML PIGGYBACK IV (07:33)
[2021-02-25] MEDS: aspirin 81 mg EC Tablet PO (09:24)
[2021-02-25] MEDS: pantoprazole DR 40 mg Tablet PO (09:24)
[2021-02-25] MEDS: cefTRIAXone 2,000 MG in sodium chloride 0.9% (plus) 50 ML 100 MG IV (09:25)
[2021-02-25] MEDS: metoprolol tartrate 25 mg Tablet 12.5 MG PO ×2 (09:25→20:03)
--- NOTE | 2021-02-25 09:58 | PM.PN ---
Subjective Subjective: Interval history: Changes confused with able to answer few questions. No significant pain. Appears short of breath but denies it. He received a dose of metoprolol this morning secondary to tachycardia. Medications: Reviewed: Yes Vitals/I&O/Wt Last Vital Signs Temp 97.8 F 02/25/21 07:39 Pulse 108 H 02/25/21 08:35 Resp 18 02/25/21 07:39 BP 143/92 02/25/21 07:39 Pulse Ox 94 02/25/21 08:35 02/24/21 02/25/21 02/25/21 22:59 06:59 14:59 Intake Total 1280 / 4464.86 52 / 4516.86 710.417 / 710.417 Output Total 750 / 2050 Balance 1280 / 3164.86 -698 / 2466.86 710.417 / 710.417 Weight last 48 hrs Weight 91.626 kg Weight 96.162 kg Physical Exam Narrative: EXAM NARRATIVE: General exam demonstrates moderate respiratory distress Neck is supple without lymphadenopathy or thyromegaly Cardiovascular tachycardic, regular. Sounds distant. No obvious murmur. Lungs diminished breath sounds bilaterally but clear to auscultation. Abdomen is soft. Positive bowel sounds are noted. No obvious organomegaly or tenderness. demonstrates cathete Extremities show no cyanosis clubbing or edema, cap refill is brisk Data : 02/25/21 03:37 02/25/21 03:37 Micro: Microbiology 02/25/21 09:24 Blood Culture - Preliminary Blood SPECIMEN COLLECTED 02/25/21 07:41 Blood Culture - Preliminary Blood SPECIMEN COLLECTED 02/24/21 10:20 Stool Lactoferrin - Final Stool Enteric Pathogens (PCR) - Final C.difficile Toxin B Gene (PCR) - Final Occult Blood (FIT) - Final 02/24/21 10:06 Blood Culture - Preliminary Blood SPECIMEN COLLECTED 02/24/21 10:06 Blood Culture - Preliminary Blood SPECIMEN COLLECTED A&P Assessment and plan (1) Sepsis: Qualifies for sepsis on admission criteria, and with lactate greater than 4 qualifies for septic shock. Blood cultures have been performed, and pending. Rocephin has been given. Continue Rocephin, and continue vancomycin secondary to history of gram-positive bacteremia in the recent past while I await blood cultures. Etiology appears to be renal, with evidence for cystitis and pyelonephritis. Urinary retention from malposition Madrigal may have contributed to urinary retention, hydronephrosis. Reduce fluid currently to 50 cc an hour. I want to try to avoid congestive heart failure. He has been adequately fluid resuscitated and blood pressure is adequate. Status: Acute Qualifiers: Acute renal failure type: unspecified Sepsis acute organ dysfunction status: with acute organ dysfunction Sepsis type: sepsis due to unspecified organism Severe sepsis acute organ dysfunction type: acute renal failure Severe sepsis shock status: with septic shock Qualified Code(s): A41.9 - Sepsis, unspecified organism; R65.21 - Severe sepsis with septic shock; N17.9 - Acute kidney failure, unspecified (2) Acute pyelonephritis: See above Status: Acute (3) Acute renal failure: Slightly improved Reduce fluids Continue to follow renal function closely Acute kidney injury secondary to sepsis, as well as obstruction of drainage from Madrigal. Could consider repeating ultrasound later in hospital course to make sure hydronephrosis is improving. Status: Acute Qualifiers: Acute renal failure type: unspecified Qualified Code(s): N17.9 - Acute kidney failure, unspecified (4) Urinary retention: Urinary catheter repositioned in the emergency department and now draining well Status: Acute (5) Displacement of Madrigal catheter: See above Status: Acute Qualifiers: Encounter type: initial encounter Qualified Code(s): T83.021A - Displacement of indwelling urethral catheter, initial encounter (6) Dementia of frontal lobe type: Status: Chronic Additional A&P Information Low magnesium, supplement acute encephalopathy, superimposed on chronic dementia manifested by a worsened confusion in setting of sepsis. This is improved from yesterday History of COPD. DuoNeb as needed Full code Heparin for DVT prophylaxis considering renal failure Protonix for GI prophylaxis. May need extended course of IV antibiotics at discharge if staph is recovered from his blood culture again. Attestations Medical Necessity Statement*: Needs continued hospitalization for IV antibiotics secondary to sepsis. Coding Level of Care Code Acute Assistant Front End Manager for [facility] F[facility] Diagnoses Sepsis A41.9; R65.21; N17.9 Acute renal failure type: unspecified Sepsis acute organ dysfunction status: with acute organ dysfunction Sepsis type: sepsis due to unspecified organism Severe sepsis acute organ dysfunction type: acute renal failure Severe sepsis shock status: with septic shock Acute pyelonephritis N10 Acute renal failure N17.9 Acute renal failure type: unspecified Urinary retention R33.9 Displacement of Madrigal catheter T83.021A Encounter type: initial encounter Dementia of frontal lobe type G31.09; F02.80
[2021-02-25] MEDS: FUROsemide 10 mg/mL SDV 10mL 60 MG IVP ×2 (13:49→20:03)
--- NOTE | 2021-02-25 16:56 | XRR_ITS ---
PROCEDURE INFORMATION: Exam: XR Chest Exam date and time: 02/25/2021 5:05 PM Age: 75 years old Clinical indication: Shortness of breath; Additional info: SOB TECHNIQUE: Imaging protocol: XR of the chest. Views: 1 view. Total images: 1 COMPARISON: No relevant prior studies available. FINDINGS: Lungs: Bilateral mixed ground-glass and early consolidated alveolar airspace disease, left lung more involved than right, of either active interstitial pneumonitis/pneumonia and or pulmonary edema. Bilateral perihilar distribution, left greater right with greatest involvement of the lung bases relative sparing of the upper lobes. Pleural spaces: Bilateral small volume pleural effusions, left greater right. Heart/Mediastinum: Cardiac structures and configuration with cardiomegaly and evidence of central pulmonary hyperemia. Arteriosclerosis. Bones/joints: Unremarkable for age. Other findings: Patient rotated to the right. XR/XR chest 1V portable [id number] IMPRESSION: 1. Bilateral pneumonitis/pneumonia and/or pulmonary edema. 2. Bilateral small volume pleural effusions.
--- NOTE | 2021-02-25 17:00 | ECG_ITS ---
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 Measurements Intervals [place] Rate: 114 P: 16 IA: 148 QRS: 34 QRSD: 110 T: 37 QT: 305 QTc: 421 Interpretive Statements SINUS TACHYCARDIA WITH OCCASIONAL VENTRICULAR PREMATURE COMPLEXES POSSIBLE RIGHT VENTRICULAR CONDUCTION DELAY [RSR (QR) IN V1/V2] POSSIBLE LATERAL MYOCARDIAL INFARCTION [30 ms Q WAVE IN I/aVL/V5/V6], PROBABLY OLD Compared to ECG 02/25/2021 05:57:49 Myocardial infarct finding now present Incomplete right bundle-branch block no longer present T-wave abnormality no longer present Electronically Signed On 02-25-2021 21:47:57 CDT by Paulino Rodriguez M.D. [id number]
[2021-02-25 17:34] LABS: ABG PCO2 32.9 mmHg (35-45); Alveolar-Arterial Oxygen Gradi 7.9 mmHg (5-10); Blood Gas Allen Test Pos; Blood Gas Operator Identificat CAK; Blood Gas Sample Site Radial, left; Blood Gas Sample Type Arterial; Carboxyhemoglobin 1.3 %THgb (0.4-20.1); HCO3 ABG 20.1 mmol/L (22-26); HGB O2 Sat 82.3 % (95-100); Ionized Calcium Level - ABG 1.2 mmol/L (1.1-1.4); Oxygen Device NC; Oxygen Saturation ABG 84.2; PO2 ABG 49.1 mmHg (80.0-100.0); Potassium Level - ABG 4.5 mmol/L (3.5-5.0); Total Hemoglobin 12.4 g/dL (14-18)
--- NOTE | 2021-02-25 17:40 | USR_ITS ---
PROCEDURE INFORMATION: Exam: US Abdomen; Limited Exam date and time: 02/25/2021 6:07 PM Age: 75 years old Clinical indication: Screening exam; Other: Bladder; Additional info: Bladder distention despite pinzon TECHNIQUE: Imaging protocol: US abdomen. Real time ultrasound with image documentation. Limited exam focused on the region of clinical interest. Total images: 9 COMPARISON: US bladder [id number] 01/29/2021 6:28 PM FINDINGS: Bladder: Decompressed urinary bladder. [place]zon catheter bulb identified within the lumen the urinary bladder. Urinary bladder not adequately distended for satisfactory diagnostic evaluation. US/US bladder [id number] IMPRESSION: 1. Decompressed urinary bladder. 2. [place]zon catheter bulb identified within the lumen of the urinary bladder.
--- NOTE | 2021-02-25 17:44 | PM.CCN ---
Critical Care Event Note Critical Care Event The high probability of a clinically significant, sudden or life threatening deterioration of the patient's cardiopulmonarysystem(s) required my full and direct attention, intervention and personal management. The critical care time is as shown. This time is in addition to time spent performing any reported procedures but includes the following: [x] Data and vital sign review and interpretation [x] Patient assessment, examination and intervention [x] Documentation [x] Medication orders and management Asked to see patient by Dr. Shah. He is tachycardic, mildly diaphoretic, with decreased oxygen saturations. Heart rate 115 and regular. Blood pressure 120s over 80s. Oxygen saturation on oxygen by nasal cannula was in the mid to low 80s with respirations in the upper 30s low 40s. On examination his abdomen is distended, tender in bilateral lower quadrants and suprapubic region. This is a similar presentation to when I saw him a couple of weeks ago. Attempt to advance Madrigal further to relieve his symptoms were not productive. He is more ill-appearing than he was last time. Chest x-ray shows increased infiltrate in the left. It was noted at admission. White count is improved, has a drop in platelet count, does have a left shift, procalcitonin was elevated 10. Twelve-lead EKG was done and showed sinus tachycardia, no definitive acute ST segment changes. ABG 7.4 0/33/49/20. AA gradient 8 mmHg which is within normal limits. I have requested a stat bladder ultrasound to ensure appropriate Madrigal catheter placement given the similarity of this presentation to last time he was here. I have also requested lactic acid, BNP. He did receive 60 of Lasix around 1230 today. He has had 600 + ml urine output since then. For now we will going to put him on some BiPAP. We will see what bladder ultrasound shows before deciding about additional diuresis and potential adjustment to antibiotic coverage. Critical Care Time Critical Care Time: Code activated: No Critical Care Time (min): 35 Coding Level of Care Code Acute Inventory Specialist for Rachelle [facility]ner
[2021-02-25] MEDS: finasteride 5 mg Tablet PO (20:03)
[2021-02-25 20:59] LABS: Lactic Sepsis W/Reflex 2.5 mmol/L (0.5-2.2)
[2021-02-25 21:10] LABS: Anion Gap 18.7 (5-19); Blood Urea Nitrogen 61 mg/dL (8-23); Calcium 8.3 mg/dL (8.5-10.5); Carbon Dioxide 18 mmol/L (22-29); Chloride 102 mmol/L (98-107); Glucose 126 mg/dL (65-115); NT Pro B Type Natriuretic Pept 5751 pg/mL (0-450); Osmolality Calculated 297 mOsm/kg (285-295); Potassium 4.7 mmol/L (3.5-5.1); Sodium 134 mmol/L (136-145)
[2021-02-25 22:27] LABS: Reflex Lactate Order REFLEX LACTIC ORDERD
[2021-02-26] VITALS (59 sets, daily range): BP systolic 101–156; BP diastolic 60–89; PULSE 90–167; RESP 18–41; TEMP 36.7–38.3; O2SAT 87–99; BMI 26.1
[2021-02-26 02:43] LABS: Basophils # 0.1 10^3/uL (0.0-0.1); Basophils % 0.4 %; Hematocrit 37.7 % (42.0-52.0); Hemoglobin 11.9 g/dL (11.7-16.6); Lymphocytes # 0.5 10^3/uL (0.8-4.8); Lymphocytes % 3.7 %; Mean Corpuscular HGB Conc 31.6 g/dL (30.0-36.0); Mean Corpuscular Hemoglobin 25.5 pg (28.0-34.0); Mean Corpuscular Volume 80.9 fL (80-94); Mean Platelet Volume 12.3 fL (7.4-10.4); Monocytes # 0.7 10^3/uL (0.2-0.9); Monocytes % 5.3 %; Neutrophils % 90.4 %; Nucleated Red Blood Cells % 0 %; Platelet Count 144 10^3/cmm (130-400); Red Blood Count 4.66 10^6/uL (4.1-5.3); Red Cell Distribution Width 17.2 % (12.1-15.1); White Blood Count 12.7 10^3/uL (4.0-10.0)
[2021-02-26 03:03] LABS: Lactic Acid level (Lactate) 2.4 mmol/L (0.5-2.2)
[2021-02-26 03:04] LABS: Alanine Aminotransferase 44 U/L (0-41); Albumin Level 2.8 g/dL (3.5-5.2); Alkaline Phosphatase 130 IU/L (40-130); Anion Gap 19.4 (5-19); Aspartate Amino Transferase 77 U/L (0-40); Blood Urea Nitrogen 74 mg/dL (8-23); Calcium 8.4 mg/dL (8.5-10.5); Carbon Dioxide 18 mmol/L (22-29); Chloride 101 mmol/L (98-107); Globulin 3.1 g/dL (1.3-4.6); Glucose 130 mg/dL (65-115); Osmolality Calculated 302 mOsm/kg (285-295); Potassium 4.4 mmol/L (3.5-5.1); Sodium 134 mmol/L (136-145); Total Bilirubin 0.5 mg/dL (0.15-1.2); Total Protein 5.9 g/dL (6.6-8.7)
[2021-02-26] MEDS: vancomycin 1,500 MG/300 ML PIGGYBACK 200 MG IV (03:12)
[2021-02-26] MEDS: acetaminophen 325 mg Tablet 650 MG PO (03:12)
[2021-02-26] MEDS: heparin 5,000 unit/mL INJ 1 mL 5000 UNIT SUBCUT ×2 (03:13→14:39)
[2021-02-26 03:40] LABS: Slide Review Slide Review Perform
[2021-02-26 05:25] LABS: ABG PH Result 7.41 (7.35-7.45); Arterial Blood Gas Hematocrit 41.7 % (42-52); Base Excess ABG -3.3 mmol/L (-2.0-2.0); Blood Gas Allen Test Pos; Blood Gas Operator Identificat JB; Blood Gas Sample Site Radial, right; Blood Gas Sample Type Arterial; HCO3 ABG 20.4 mmol/L (22-26); Oxygen Device OXY MASK; PO2 ABG 68.2 mmHg (80.0-100.0)
[2021-02-26] MEDS: pantoprazole DR 40 mg Tablet PO (07:34)
[2021-02-26] MEDS: aspirin 81 mg EC Tablet PO (07:34)
[2021-02-26] MEDS: metoprolol tartrate 25 mg Tablet 12.5 MG PO ×2 (07:34→21:43)
--- NOTE | 2021-02-26 08:05 | P.PN_ITS ---
Subjective Subjective: Interval history: After receiving 2 doses of Lasix yesterday Mr. Ochoa is -3500 ml of urine. He continues to require oxygen. He was taken off of BiPAP overnight. Heart rate was okay through the night, with the sinus tachycardia he was experiencing resolving. This morning heart rate is in the 130s to 140s. He is on his usual dose of metoprolol and recently received it. He is on 5 L of oxygen by nasal cannula. He is very thirsty. Lactic acid continues to trend downward from a peak of 5.3 at admission. This morning 2.4. Had been 2.5 last evening. proBNP was elevated. Official chest x-ray interpretation from yesterday evening showed bilateral pneumonitis or pneumonia and/or pulmonary edema. Only small volume pleural effusions were noted. Medications: Reviewed: Yes Medication Review Details: Vancomycin and Rocephin day 2 Vitals/I&O/Wt Last Vital Signs Temp 98.3 F 02/26/21 07:30 Pulse 140 H 02/26/21 07:30 Resp 33 H 02/26/21 07:30 BP 113/70 02/26/21 07:30 Pulse Ox 88 L 02/26/21 07:30 02/25/21 02/26/21 02/26/21 22:59 06:59 14:59 Intake Total 320 / 0463.741 4207 / 2769.584 Output Total 1200 / 3850 2500 / 6350 Balance -880 / -2130.416 -1450 / -3580.416 Weight last 48 hrs Weight 97.296 kg Weight 91.626 kg Weight 96.162 kg Physical Exam Narrative: EXAM NARRATIVE: Constitutional: Ill-appearing, pale, trying to drink water through the oxygen mask HEENT: Pupils are reactive, dry mucous membranes Respiratory: Scattered wheezes and crackles, decreased at bases Cardiovascular: Tachycardic, regular rhythm Abdomen: Soft, rotund, continues to have some suprapubic tenderness : Madrigal catheter intact with hub of tubing about 7 inches from meatus Extremities: No pitting edema, no mottling, 1+ pulses Neuro: Speech at baseline, moves all extremities, able to bring a cup of water with a straw up to his mouth Urinary Catheter Management^: Madrigal: Cath Placed During This Visit: no Reason for Continuing Indwelling Catheter: Chronic Indwelling Urinary Catheter on Admission Data : 02/26/21 01:59 02/26/21 01:59 Other Labs: 02/25/21 02/26/21 17:23 05:12 ABG pH 7.40 7.41 ABG pCO2 32.9 L 32.0 L ABG pO2 49.1 L 68.2 L ABG HCO3 20.1 L 20.4 L ABG O2 Saturation 84.2 ABG Base Excess -4.0 L -3.3 L Laboratory Tests 02/25/21 02/25/21 02/26/21 20:29 20:29 01:59 Neut % (Auto) 90.4 Lactic Acid 2.5 H Lactic Acid (Sepsis) 2.4 H Magnesium 2.0 AST 77 H ALT 44 H NT-Pro-B Natriuret Pep 5751 H Albumin 2.8 L Lactoferrin Final 02/24/21-1056 Lactoferrin Negative: No fecal lactoferrin detected. Enteric Bacterial Panel by PCR Final 02/24/21-1344 No Shigella/E.coli (EIEC) DNA Detected No Shiga Toxin I/II Genes Detected No Campylobacter DNA Detected No Salmonella DNA Detected Enteric Parasite Panel by PCR Final 02/25/21-1231 No Giardia lamblia DNA Detected No Entamoeba histolytica DNA Detected No Cryptosporidium DNA detected Clostridioides Difficile PCR Final 02/24/21-1303 No C. difficile toxin B gene DNA detected Immunochemical Fecal OCB Final 02/24/21-1056 IFOB Results: Negative for Occult Blood Micro: Microbiology 02/24/21 11:14 Urine Culture - Preliminary Urine,Clean Catch Gram Negative Rods 02/24/21 10:20 Stool Lactoferrin - Final Stool Enteric Pathogens (PCR) - Final Parasite Antigen Panel - Final C.difficile Toxin B Gene (PCR) - Final Occult Blood (FIT) - Final 02/24/21 10:06 Blood Culture - Preliminary Blood NEGATIVE TO DATE 02/24/21 10:06 Blood Culture - Preliminary Blood NEGATIVE TO DATE 02/25/21 09:24 Blood Culture - Preliminary Blood SPECIMEN COLLECTED 02/25/21 07:41 Blood Culture - Preliminary Blood SPECIMEN COLLECTED Other data: ECHO 01/25/21 CONCLUSIONS 1. This is a technically very difficult study. 2. Normal left ventricular cavity size. Mildly to moderately decreased left ventricle systolic function. This study is inadequate for estimation of regional wall motion abnormality. Grade III diastolic dysfunction (restrictive filling pattern), severely elevated filling pressures. 3. Probably normal right ventricular size and systolic function. 4. No prior similar studies to compare. A&P Assessment and plan (1) Sepsis: Etiology and admission consistent with cystitis and pyelonephritis. Chest x-ray at admission demonstrated possibility of pneumonia on the left. He has had further consolidation since admission bilaterally with the left lung more involved than the right. Has continued to maintain blood pressures. Has associated acute encephalopathy, fever, leukocytosis, tachycardia, acute renal failure Status: Acute Qualifiers: Acute renal failure type: unspecified Sepsis acute organ dysfunction status: with acute organ dysfunction Sepsis type: sepsis due to unspecified organism Severe sepsis acute organ dysfunction type: acute renal failure Severe sepsis shock status: with septic shock Qualified Code(s): A41.9 - Sepsis, unspecified organism; R65.21 - Severe sepsis with septic shock; N17.9 - Acute kidney failure, unspecified (2) Acute pyelonephritis: In a patient with chronic Madrigal catheter and displacement of Madrigal Status: Acute (3) Displacement of Madrigal catheter: This is now a recurrent problem, with second episode of Madrigal catheter bulb migrating into the prostate and causing acute urinary retention/obstruct ion. Consideration may need to be given to suprapubic catheter placement at some point. Status: Acute Qualifiers: Encounter type: initial encounter Qualified Code(s): T83.021A - Displacement of indwelling urethral catheter, initial encounter (4) Urinary retention: Urinary catheter repositioned in the emergency department and now draining well. Placement re-confirmed via bladder ultrasound on 02/25. Status: Acute (5) Acute renal failure: Secondary to infection and obstruction and at this point I think a degree of prerenal is in play Status: Acute Qualifiers: Acute renal failure type: unspecified Qualified Code(s): N17.9 - Acute kidney failure, unspecified (6) Bilateral pneumonia: Present on admission Status: Acute Qualifiers: Pneumonia type: due to unspecified organism Lung location: unspecified part of lung Qualified Code(s): J18.9 - Pneumonia, unspecified organism (7) COPD (chronic obstructive pulmonary disease): Status: Acute Qualifiers: COPD type: unspecified COPD Qualified Code(s): J44.9 - Chronic obstructive pulmonary disease, unspecified (8) BPH (benign prostatic hyperplasia): Status: Chronic Qualifiers: Lower urinary tract symptom presence: symptoms present Lower urinary tract symptom detail: urinary retention Qualified Code(s): N40.1 - Benign prostatic hyperplasia with lower urinary tract symptoms; R33.8 - Other retention of urine (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 Additional A&P Information Echo 01/25/2021 with mild to moderate decrease in systolic function with elevated filling pressures Elevated TSH Mild increase in transaminases Intermittent hyperglycemia without history of diabetes Noninvasive hemodynamic monitoring indicates fluid responsiveness Fluid bolus has been ordered EKG Recheck electrolytes this afternoon Monitor renal function and output closely Consider repeat images to evaluate for improvement in hydronephrosis in a few days Consider renal consult if not improving more after fluids Add Levaquin Based on previous urinary sensitivities I have continued Rocephin as well. Organisms with high CHRISTINA's to Zosyn and cefepime Continue vancomycin has had a history of staph lugdunensis in blood cultures last hospital stay Add scheduled duo nebs and budesonide, continue as needed albuterol Follow-up pending blood and urine cultures Continue oxygen supplementation and BiPAP as needed Monitor respiratory status closely especially with addition of fluids Continue home finasteride, resume Flomax Monitor blood sugars for need to intervene Chronically on PPI Chronically on aspirin Subcu heparin for DVT prophylaxis May need extended course of IV antibiotics at discharge if staph is recovered from his blood culture again Disposition will be back to residential FULL code, which I confirmed with him Attestations Medical Necessity Statement*: Requires ongoing inpatient ICU stay secondary to sepsis and associated clinical condition. He continues to require very close monitoring of cardiopulmonary processes. Receiving IV fluids, antibiotics, respiratory support with oxygen. At very high risk of rapid clinical decline necessitating intubation and mechanical ventilation in addition to other adjunctive support. Plans are noted. Coding Level of Care Code Acute [employer] for [facility] Diagnoses Sepsis A41.9; R65.21; N17.9 Acute renal failure type: unspecified Sepsis acute organ dysfunction status: with acute organ dysfunction Sepsis type: sepsis due to unspecified organism Severe sepsis acute organ dysfunction type: acute renal failure Severe sepsis shock status: with septic shock Acute pyelonephritis N10 Displacement of Madrigal catheter T83.021A Encounter type: initial encounter Urinary retention R33.9 Acute renal failure N17.9 Acute renal failure type: unspecified Bilateral pneumonia J18.9 Pneumonia type: due to unspecified organism Lung location: unspecified part of lung COPD (chronic obstructive pulmonary disease) J44.9 COPD type: unspecified COPD BPH (benign prostatic hyperplasia) N40.1; R33.8 Lower urinary tract symptom presence: symptoms present Lower urinary tract symptom detail: urinary retention Dementia of frontal lobe type G31.09; F02.80
--- NOTE | 2021-02-26 08:09 | ECG_ITS ---
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 Measurements Intervals [place] Rate: 115 P: 13 MT: 161 QRS: 25 QRSD: 122 T: 5 QT: 347 QTc: 482 Interpretive Statements SINUS TACHYCARDIA WITH FREQUENT SUPRAVENTRICULAR PREMATURE COMPLEXES POSSIBLE LEFT ATRIAL ENLARGEMENT [-0.1mV P WAVE IN V1/V2] POSSIBLE RIGHT VENTRICULAR CONDUCTION DELAY [RSR (QR) IN V1/V2] PROBABLE LATERAL MYOCARDIAL INFARCTION [35 ms Q WAVE IN I/aVL/V5/V6], PROBABLY OLD MODERATE T-WAVE ABNORMALITY, CONSIDER ANTERIOR ISCHEMIA [-0.1+ mV T WAVE IN V3/V4] Compared to ECG 02/25/2021 17:42:56 T-wave abnormality now present Possible ischemia now present Ventricular premature complex(es) no longer present Myocardial infarct finding still present Electronically Signed On 02-26-2021 15:19:40 CDT by Dedrick Gaona M.D. [id number]
[2021-02-26] MEDS: sodium chloride 0.9% 1,000 ML 75 ML IV ×2 (08:48→20:07)
[2021-02-26] MEDS: levofloxacin-dextrose 5 % 750 MG/150 ML PREMIX 100 MG IV (08:48)
[2021-02-26] MEDS: sodium chloride 0.9% 500 ML IV (08:48)
--- NOTE | 2021-02-26 09:35 | USR_ITS ---
PROCEDURE INFORMATION: Exam: US Duplex Lower Extremity Veins, Bilateral Exam date and time: 02/26/2021 2:00 PM Age: 75 years old Clinical indication: Other: Svt, hypoxia; Additional info: Svt, hypoxemia TECHNIQUE: Imaging protocol: Real-time duplex ultrasound of the extremities with 2-D kelly scale, color Doppler flow and spectral waveform analysis with image documentation. Complete exam focused on the bilateral lower extremity veins. COMPARISON: No relevant prior studies available. FINDINGS: Right deep veins: No deep venous thrombosis in the visualized right common femoral, profunda femoris, superficial femoral, popliteal, peroneal, or posterior tibial veins. Left deep veins: No deep venous thrombosis in the visualized left common femoral, profunda femoris, superficial femoral, popliteal, peroneal, or posterior tibial veins. Soft tissues: Unremarkable. US/CV venous duplex [facility] [id number] IMPRESSION: No deep venous thrombosis in the visualized bilateral lower extremities.
[2021-02-26] MEDS: tamsulosin 0.4 mg Capsule PO (09:45)
[2021-02-26] MEDS: sennosides-docusate Tablet 1 TAB PO (09:45)
[2021-02-26] MEDS: cefTRIAXone 2,000 MG in sodium chloride 0.9% (plus) 50 ML 100 MG IV (09:50)
[2021-02-26] MEDS: metroNIDAZOLE IV 500 MG/100 ML PREMIX 100 MG IV (09:52)
[2021-02-26] MEDS: LORazepam 2 mg/mL INJ 1 mL 0.5 MG IVP (10:55)
[2021-02-26 11:11] LABS: ABG PCO2 36.8 mmHg (35-45); ABG PH Result 7.37 (7.35-7.45); Arterial Blood Gas Hematocrit 36.3 % (42-52); Base Excess ABG -3.7 mmol/L (-2.0-2.0); Blood Gas Allen Test Pos; Blood Gas Operator Identificat GD; Blood Gas Sample Site Radial, right; Blood Gas Sample Type Arterial; HCO3 ABG 21.1 mmol/L (22-26); Oxygen Device NC; PO2 ABG 62.6 mmHg (80.0-100.0)
--- NOTE | 2021-02-26 13:40 | PM.CONSULT ---
Providers/Reason For Consult Consulting Physican/Specialty*: Keron Man MD / Pulmonary Critial care Reason for Consult*: hypoxia Requesting Physcian: Monica Guzmán MD Attending Physician: Monica Guzmán MD Primary Care Provider: Dominic Adams DO History of Present Illness History of Present Illness Bne Ochoa is a 75 year old male with PMH BPH, COPD, dementia frontal lobe, DJD, GERD, history of COVID-19, major depressive disorder, admitted to ICU for concerns of severe sepsis. He was found clammy and pale in custodial on 02/24/2021 morning, tachypneic, had loose stools and blood sugar 155. Completed Levaquin for UTI 1 day before. Denied any fever but complaining of some generalized weakness for last several days. Recently been in the hospital and discharged up related secondary to cystitis with Proteus and displacement of his Madrigal catheter. On admission lactate was greater than 4, started on Rocephin and vancomycin due to history of staph lugdunensis and blood culture last hospitalization. Appeared to have urinary retention from malpositioned catheter and is high possibility of urosepsis. Given IV fluids as per sepsis protocol and patient was admitted to ICU for altered mental status secondary to urosepsis. Yesterday 02/25/2021 patient was noted to be tachycardic, mildly diaphoretic with decreased oxygen saturations and heart rate close to 120s in sinus rhythm. Chest x-ray shows increased infiltrate in the left side. Added Levaquin for atypical coverage. Initial procalcitonin elevated to 20 and increased renal functions. EKG showed sinus tachycardia with no definite acute ST segment changes. Recent echocardiogram during last visit on 01/25/2021 reported technically very difficult study but normal LV cavity size and mild to moderate decreased LV systolic function. Grade 3 diastolic dysfunction severely elevated filling pressures. Probable normal right ventricular size and systolic function. Today morning Pulmonary Consult called for hypoxia. Until yesterday patient was on BiPAP and switched to 5 L nasal cannula but suddenly today morning there was observed saturation of low 80s for few minutes. O2 supplementation increased to 10 L nasal cannula and patient saturations were above 97%. Patient appeared weak but is oriented and is able to follow commands and respond to questions appropriately. Mentation and judgment appear reasonable. As per bedside RN patient mentation is better than yesterday. EKG continues to show intermittent SVT with heart rates ranging 1 40-1 60 and comes right back to 110s to 120. Blood pressure is stable. He is making 100 cc/h urine since morning and bedside ultrasound examination showed collapsible IVC and based on Cheetah-patient appeared volume deficient and received 500 mL bolus. He is also receiving fluids at 75 cc/h. Labs and imaging reviewed Review of Systems General: Reports: 10 or more systems reviewed and unremarkable except in HPI and below Meds/Allergies Home Medications and Allergies Home Medications Medication Instructions Recorded Confirmed Last Taken Type acetaminophen 325 mg capsule 650 mg PO Q4H PRN cap 11/27/19 02/24/21 01/26/21 01:04 History finasteride 5 mg tablet 5 mg PO DAILY@20 tab 11/27/19 02/24/21 02/23/21 History omeprazole 20 mg tablet,delayed 20 mg PO DAILY@05 11/27/19 02/24/21 02/24/21 History release bisacodyl 10 mg rectal suppository 10 mg FL DAILY PRN 03/01/20 02/24/21 Unknown History magnesium hydroxide 400 mg/5 mL 30 ml PO DAILY PRN ml 03/01/20 02/24/21 Unknown History oral suspension Enema Disposable 118 ml FL DAILY PRN 12/08/20 02/24/21 Unknown History Hardin Cough Drops 7.6 mg MUCOUS MEMBRANE Q2H PRN 12/08/20 02/24/21 Unknown History calcium carbonate [Tums] 1,000 mg PO QID PRN 12/08/20 02/24/21 Unknown History polyvinyl alcohol 3 drp OPHTHALMIC (EYE) QID PRN 12/08/20 02/24/21 Unknown History aspirin 81 mg PO DAILY@08 01/26/21 02/24/21 02/24/21 History sennosides-docusate sodium [Stool 1 tab PO DAILY #30 tab 01/29/21 02/24/21 02/23/21 Rx Softener-Laxative] tamsulosin [Flomax] 0.4 mg PO BID #60 cap 01/30/21 02/24/21 02/24/21 Rx metoprolol succinate 25 mg 12.5 mg PO DAILY #15 tab 02/22/21 02/24/21 02/24/21 Rx tablet,extended release 24 hr Allergies Allergy/AdvReac Type Severity Reaction Status Date / Time tetanus toxoid, adsorbed Allergy Unknown unknown Verified 02/24/21 09:33 Current Medications Current Medications Generic Name Dose Route Start Last Admin Trade Name Freq PRN Reason Stop Dose Admin Acetaminophen 650 mg 02/24/21 14:04 02/26/21 03:12 Acetaminophen 325 Mg Tablet PO 650 mg Q6H PRN Administration MILD PAIN Albuterol/Ipratropium 3 ml 02/26/21 09:00 02/26/21 11:46 Ipratropium-Albuterol 3 Ml Neb INHALATION Not Given Q6H.RESPIRATORY TD Aspirin 81 mg 02/25/21 08:00 02/26/21 07:34 Aspirin 81 Mg Ec Tablet PO 81 mg DAILY@08 TD Administration Finasteride 5 mg 02/24/21 20:00 02/25/21 20:03 Finasteride 5 Mg Tablet PO 5 mg DAILY@20 TD Administration Heparin Sodium (Beef Lung) 5,000 unit 02/24/21 14:30 02/26/21 03:13 Heparin 5,000 Unit/Ml Inj 1 Ml SUBCUT 5,000 unit Q12H TD Administration Ceftriaxone Sodium 2,000 mg/ 50 mls @ 100 mls/hr 02/25/21 10:00 02/26/21 10:42 Sodium Chloride IV Infused Q24H TD Infusion Protocol Vancomycin/PEG/NADA/Lysine/Water 1,500 mg in 300 mls @ 200 mls/hr 02/26/21 03:00 02/26/21 04:58 Vancocin IV Infused Q36H TD Infusion Levofloxacin/Dextrose 750 mg in 150 mls @ 100 mls/hr 02/26/21 09:00 02/26/21 10:42 Levaquin-D5w IV Infused Q48H TD Infusion Protocol Sodium Chloride 1,000 mls @ 75 mls/hr 02/26/21 08:30 02/26/21 08:48 Sodium Chloride 0.9% IV 75 mls/hr .[id number] TD Administration Metronidazole 500 mg in 100 mls @ 100 mls/hr 02/26/21 10:00 02/26/21 10:55 Flagyl Iv IV Infused Q6H TD Infusion Protocol Metoprolol Tartrate 12.5 mg 02/25/21 09:00 02/26/21 07:34 Metoprolol Tartrate 25 Mg Tablet PO 12.5 mg BID@0900,2100 TD Administration Ondansetron HCl 4 mg 02/24/21 14:04 02/25/21 12:53 Ondansetron 2 Mg/Ml Sdv 2 Ml IVP 4 mg Q6H PRN Administration NAUSEA AND VOMITING Pantoprazole Sodium 40 mg 02/25/21 09:00 02/26/21 07:[address] 40 Mg Tablet PO 40 mg DAILY TD Administration Senna/Docusate Sodium 1 tab 02/26/21 09:00 02/26/21 09:45 Sennosides-Docusate Tablet PO 1 tab DAILY TD Administration Tamsulosin HCl 0.4 mg 02/26/21 09:00 02/26/21 09:45 Tamsulosin 0.4 Mg Capsule PO 0.4 mg BID TD Administration PFSH Acute PFSH: Medical History BPH (benign prostatic hyperplasia) COPD (chronic obstructive pulmonary disease) Dementia of frontal lobe type DJD (degenerative joint disease) GERD (gastroesophageal reflux disease) History of 2019 novel coronavirus disease (COVID-19) Major depressive disorder, single episode, in full remission Proteus infection Urinary retention Ventricular premature beats Surgical History History of thoracentesis Chronic right pleural effusion which needed [place] drain which was removed by Dr. Hoover 2015 PEG (percutaneous endoscopic gastrostomy) status Family History Father Cancer Grandfather Myocardial infarction Other CAD (coronary artery disease) Social History Smoking and tobacco status: never smoked Alcohol intake: never Lives independently: No Marital status: History of recent travel: No Vitals/I&O/Wt Last Vital Signs Temp 98.3 F 02/26/21 12:00 Pulse 137 H 02/26/21 12:00 Resp 20 H 02/26/21 12:00 BP 115/75 02/26/21 12:00 Pulse Ox 91 02/26/21 12:00 02/25/21 02/26/21 02/26/21 22:59 06:59 14:59 Intake Total 320 / 5020.368 1047 / 2769.584 800 / 800 Output Total 1200 / 3850 2500 / 6350 Balance -880 / -2130.416 -1450 / -3580.416 800 / 800 Weight last 48 hrs Weight 214 lb 8 oz Weight 202 lb Physical Exam Narrative: EXAM NARRATIVE: General: alert, appears weak-NAD HEENT: conj clear, EOMI, PERRL, mmm, Neck: supple, no meningismus Heme: no cervical LAP Pulmonary: CTAB, no wheezing, rhonchi, crackles Cardiovascular: rrr, nl s1s2, no mrg Abdomen: soft, nt, nd, no r/g, bs+ Extremities: pulses +, no edema, no c/c : no CVA tenderness Skin: intact, no rash MSK: no back or neck pain Neurologic: grossly intact Urinary Catheter Management^: Madrigal: Cath Placed During This Visit: no Reason for Continuing Indwelling Catheter: Chronic Indwelling Urinary Catheter on Admission Data Labs: Other Labs: Laboratory Results WBC 12.7 10^3/uL (4.0 -10.0) H 02/26/21 01:59 RBC 4.66 10^6/uL (4.1 -5.3) 02/26/21 01:59 Hgb 11.9 g/dL (11.7-1 6.6) 02/26/21 01:59 Hct 37.7 % (42.0-52.0 ) L 02/26/21 01:59 MCV 80.9 fL (80-94) 02/26/21 01:59 MCH 25.5 pg (28.0-34. 0) L 02/26/21 01:59 MCHC 31.6 g/dL (30.0-3 6.0) 02/26/21 01:59 RDW 17.2 % (12.1-15.1 ) H 02/26/21 01:59 Plt Count 144 10^3/cmm (130 -400) 02/26/21 01:59 MPV 12.3 fL (7.4-10.4 ) H 02/26/21 01:59 Neut % (Auto) 90.4 % 02/26/21 01:59 Lymph % (Auto) 3.7 % 02/26/21 01:59 [place]ting[place] % (Auto) 5.3 % 02/26/21 01:59 Eos % (Auto) 0.0 % 02/26/21 01:59 Baso % (Auto) 0.4 % 02/26/21 01:59 Neut # (Auto) 11.50 10^3/uL (1. 8-7.7) H 02/26/21 01:59 Lymph # (Auto) 0.5 10^3/uL (0.8- 4.8) L 02/26/21 01:59 [place] # (Auto) 0.7 10^3/uL (0.2- 0.9) 02/26/21 01:59 Eos # (Auto) 0.0 10^3/uL (0.0- 0.8) 02/26/21 01:59 Baso # (Auto) 0.1 10^3/uL (0.0- 0.1) 02/26/21 01:59 Nucleated RBC % (a uto) 0 % 02/26/21 01:59 Total Counted 100 (0-100) 02/25/21 03:37 Atypical Lymphs % 0.0 % (0-5) 02/25/21 03:37 Absolute Neutrophi ls 5.5 10^3/cmm (1.4 -6.5) 02/25/21 03:37 Segmented Neutroph ils 45 % 02/25/21 03:37 Abs Segm Neuts (Ma n) 4.9 10/cmm (1.6-7 .1) 02/25/21 03:37 Band Neutrophils 5.0 % 02/25/21 03:37 Abs Band Neuts (Ma n) 0.5 10^3/cmm (0.0 -1.2) 02/25/21 03:37 Absolute Lymphocyt es 0.8 10^3/cmm (1.2 -3.4) L 02/25/21 03:37 Lymphocytes (Manua l) 7 % 02/25/21 03:37 Monocytes (Manual) 0.0 % 02/25/21 03:37 Absolute Monocytes 0.0 10^3/cmm (0.1 -0.6) L 02/25/21 03:37 Eosinophils (Manua l) 0 % 02/25/21 03:37 Absolute Eosinophi ls 0.0 10^3/cmm (0.0 -0.7) 02/25/21 03:37 Basophils (Manual) 0.0 % 02/25/21 03:37 Absolute Basophils 0.0 10^3/cmm (0.0 -0.2) 02/25/21 03:37 Nucleated RBCs # 0.0 /100WBC 02/26/21 01:59 Platelet Estimate Decreased (Meredith l) 02/25/21 03:37 Specimen Type Arterial 02/26/21 10:51 Sample Site Radial, right 02/26/21 10:51 ABG pH 7.37 (7.35-7.45) 02/26/21 10:51 ABG pCO2 36.8 mmHg (35-45) 02/26/21 10:51 ABG pO2 62.6 mmHg (80.0-1 00.0) L 02/26/21 10:51 ABG HCO3 21.1 mmol/L (22-2 6) L 02/26/21 10:51 ABG O2 Saturation 84.2 02/25/21 17:23 ABG Base Excess -3.7 mmol/L (-2.0 -2.0) L 02/26/21 10:51 Piotr Test Pos 02/26/21 10:51 A-a O2 Gradient 7.9 mmHg (5-10) 02/25/21 17:23 Hematocrit 36.3 % (42-52) L 02/26/21 10:51 Hgb O2 Saturation 82.3 % (95-100) L 02/25/21 17:23 Carboxyhemoglobin 1.3 %THgb (0.4-20 .1) 02/25/21 17:23 Methemoglobin 1.0 % (0.4-1.5) 02/25/21 17:23 Total Hemoglobin 12.4 g/dL (14-18) L 02/25/21 17:23 Sodium 137.0 mmol/L (131 -143) 02/25/21 17:23 Potassium 4.5 mmol/L (3.5-5 .0) 02/25/21 17:23 Glucose 139.0 mg/dL (70-1 15) H 02/25/21 17:23 Ionized Calcium 1.2 mmol/L (1.1-1 .4) 02/25/21 17:23 O2 Delivery Device Nc 02/26/21 10:51 O2 Liters/Min 8.0 % 02/26/21 10:51 Manager Solution ID Gd 02/26/21 10:51 Sodium 134 mmol/L (136-1 45) L 02/26/21 01:59 Potassium 4.4 mmol/L (3.5-5 .1) 02/26/21 01:59 Chloride 101 mmol/L (98-10 7) 02/26/21 01:59 Carbon Dioxide 18 mmol/L (22-29) L 02/26/21 01:59 Anion Gap 19.4 (5-19) H 02/26/21 01:59 BUN 74 mg/dL (8-23) H 02/26/21 01:59 Creatinine 3.5 mg/dL (0.7-1. 2) H 02/26/21 01:59 GFR Calculation Not Reportable 02/26/21 01:59 Glucose 130 mg/dL (65-115 ) H 02/26/21 01:59 Calculated Osmolal ity 302 mOsm/kg (285- 295) H 02/26/21 01:59 Lactic Acid 2.5 mmol/L (0.5-2 .2) H 02/25/21 20:29 Lactic Acid (Sepsi s) 2.4 mmol/L (0.5-2 .2) H 02/26/21 01:59 Calcium 8.4 mg/dL (8.5-10 .5) L 02/26/21 01:59 Magnesium 2.0 mg/dL (1.7-2. 3) 02/26/21 01:59 Total Bilirubin 0.5 mg/dL (0.15-1 .2) 02/26/21 01:59 AST 77 U/L (0-40) H 02/26/21 01:59 ALT 44 U/L (0-41) H 02/26/21 01:59 Alkaline Phosphata se 130 IU/L (40-130) 02/26/21 01:59 Creatine Kinase 149 U/L (39-308) 02/24/21 10:06 NT-Pro-B Natriuret Pep 5751 pg/mL (0-450 ) H 02/25/21 20:29 Total Protein 5.9 g/dL (6.6-8.7 ) L 02/26/21 01:59 Albumin 2.8 g/dL (3.5-5.2 ) L 02/26/21 01:59 Globulin 3.1 g/dL (1.3-4.6 ) 02/26/21 01:59 Lipase 13 U/L (13-60) 02/24/21 10:06 Procalcitonin 20.13 ng/mL (0-0. 5) H 02/24/21 10:06 TSH 5.48 uIU/mL (0.27 -4.20) H 02/24/21 10:06 Urine Color Yellow (Yellow) 02/24/21 11:14 Urine Appearance Cloudy (CLEAR) 02/24/21 11:14 Urine pH 6 (5-7) 02/24/21 11:14 Ur Specific Gravit y 1.015 (1.005-1.0 30) 02/24/21 11:14 Urine Protein 1+ (Negative) H 02/24/21 11:14 Urine Glucose (UA) Norm (Normal) 02/24/21 11:14 Urine Ketones Negative (Negati ve) 02/24/21 11:14 Urine Blood 3+ (Negative) H 02/24/21 11:14 Urine Nitrate Negative (Negati ve) 02/24/21 11:14 Urine Bilirubin Neg (Negative) 02/24/21 11:14 Urine Urobilinogen Norm mg/dL (Negat veronique) 02/24/21 11:14 Ur Leukocyte Demetria ase 2+ (Negative) H 02/24/21 11:14 Urine RBC 15-25 /hpf (0-2) H 02/24/21 11:14 Urine WBC >100 /hpf (0-5) H 02/24/21 11:14 Ur Squamous Epith Cells 0-4 /hpf (0-5) H 02/24/21 11:14 Amorphous Sediment Not Reportable 02/24/21 11:14 Urine Bacteria 1+ /hpf (NONE) H 02/24/21 11:14 Impressions Abdomen/Pelvis CT 02/24/21 09:29 IMPRESSION: 1. Moderate bilateral hydroureteronephrosis and perinephric stranding, RIGHT greater than LEFT. Suspect bilateral pyelonephritis. 2. Hydroureteronephrosis is likely secondary to an overly distended urinary bladder. No obstructing stones identified. 3. Enlarged prostate gland with a Madrigal catheter balloon distended within the prostate urethra. Despite the Madrigal catheter urinary bladder continues to be dilated. Recommend repositioning this Madrigal catheter. 4. Debris within the urinary bladder may be bladder or related to infection. 5. Study is significantly compromised by motion. 6. Small LEFT pleural effusion is unchanged. Chest X-Ray 02/25/21 16:56 IMPRESSION: 1. Bilateral pneumonitis/pneumonia and/or pulmonary edema. 2. Bilateral small volume pleural effusions. Bladder Ultrasound 02/25/21 17:40 IMPRESSION: 1. Decompressed urinary bladder. 2. Madrigal catheter bulb identified within the lumen of the urinary bladder. Venous Duplex 02/26/21 09:35 IMPRESSION: No deep venous thrombosis in the visualized bilateral lower extremities. Micro: Micro: Microbiology 02/26/21 11:40 Bacterial Antigens - Final Urine,Clean Catch 02/26/21 10:15 Gram Stain - Final Sputum - Endotrac heal Tube Aspirate 02/24/21 11:14 Urine Culture - Fi nal Urine,Clean Catch Escherichia col i esbl 02/25/21 09:24 Blood Culture - Pr eliminary Blood NEGATIVE TO JENNIFER E 02/25/21 07:41 Blood Culture - Pr eliminary Blood NEGATIVE TO JENNIFER E 02/24/21 10:20 Stool Lactoferrin - Final Stool Enteric Pathogens (PCR) - Final Parasite Antigen P zita - Final C.difficile Toxin B Gene (PCR) - Fin al Occult Blood (FIT) - Final 02/24/21 10:06 Blood Culture - Pr eliminary Blood NEGATIVE TO JENNIFER E 02/24/21 10:06 Blood Culture - Pr eliminary Blood NEGATIVE TO JENNIFER E A&P Assessment and plan (1) Bilateral pneumonia: Status: Acute Qualifiers: Pneumonia type: due to unspecified organism Lung location: unspecified part of lung Qualified Code(s): J18.9 - Pneumonia, unspecified organism (2) Acute pyelonephritis: Status: Acute (3) Acute renal failure: Status: Acute Qualifiers: Acute renal failure type: unspecified Qualified Code(s): N17.9 - Acute kidney failure, unspecified (4) Displacement of Madrigal catheter: Status: Acute Qualifiers: Encounter type: initial encounter Qualified Code(s): T83.021A - Displacement of indwelling urethral catheter, initial encounter (5) BPH (benign prostatic hyperplasia): Status: Chronic Qualifiers: Lower urinary tract symptom presence: symptoms present Lower urinary tract symptom detail: urinary retention Qualified Code(s): N40.1 - Benign prostatic hyperplasia with lower urinary tract symptoms; R33.8 - Other retention of urine (6) COPD (chronic obstructive pulmonary disease): Status: Acute Qualifiers: COPD type: unspecified COPD Qualified Code(s): J44.9 - Chronic obstructive pulmonary disease, unspecified (7) Diastolic heart failure of unknown etiology: Status: Acute (8) AMS (altered mental status): Status: Acute Qualifiers: Altered mental status type: unspecified Qualified Code(s): R41.82 - Altered mental status, unspecified Assessment and plan and recommendations: #AMS and CHARLA secondary to sepsis secondary to Suspect bilateral pyelonephritis #bilateral hydroureteronephrosis due to dislodged catheter; #urine culture positive for MDR E. coli sensitive to imipenem #Chest [id number] infiltrates left greater > right; suspect pneumonitis-high risk for aspiration #Hypoxia-secondary to fluid vs pneumonitis vs??? PE(high risk for PE due to immobilization) #COPD #Intermittent SVT -Currently on imipenem for E. coli urosepsis based on sensitivity with nd vancomycin for previous history of staph evidences (to DC if MRSA nares and final blood cultures negative) -After catheterization and s/p Lasix 2 doses, very good urine output about 100 cc/h -Improving mentation, lactic acid and renal functions -Intermittent SVT-secondary to sepsis and fluid deficiency-electrolytes are within normal limits -Bedside ultrasound showed collapsed IVC and Cheetah assessment showed patient is volume deficient-given 500 cc bolus and currently IV hydration at 75 cc/h. -Given patient recent echo 01/25/2021 with mild to moderately decreased LV function and grade 3/4 diastolic dysfunction-closely monitor input output and signs of edema -try to keep patient slight negative to net even -Patient is high risk for aspiration-recommended aspiration precautions and feeding with assistance, already on imipenem which covers for anaerobes -Hypoxia can be secondary to bilateral infiltrates due to pneumonitis vs fluid; although patient is at high risk for PE due to immobilization-bedside ultrasound did not show any bilateral DVT; and a gradient and ABG is normal; CT angiogram with PE protocol could not be obtained due to renal function. -Currently on 8 L nasal cannula on ABG showed 7.3 7/36/62/21/94% saturation -Currently covered with prophylactic heparin 5000 every 12-hour SC; if patient hypoxia worsens-we will go ahead and switch to full dose anticoagulation and do CTA once renal functions normalize -on DuoNeb nebulization every 6 scheduled and budesonide 0.5 twice daily nebulizations for COPD Recommendation was discussed with Dr. Gzumán hospitalist and RN covering the patient Consult Attestations Medical Necessity Statement: Urosepsis with CHARLA and altered mental status-gradually improving-on sensitive antibiotics, intermittent SVT and need close respiratory, hemodynamic and fluid input and output monitoring. Time Spent in Patient Care: Greater than 35 minutes (>than 50% of time spent in counselling and/or direct pt care on unit). The high probability of a clinically significant, sudden or life threatening deterioration of the patient's respiratory, renal, cardiac system(s) required my full and direct attention, intervention and personal management. The critical care time is as shown. 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 Patient Type New History Comprehensive Exam Comprehensive Medical Decision Making High Complexity Diagnoses Bilateral pneumonia J18.9 Pneumonia type: due to unspecified organism Lung location: unspecified part of lung Acute pyelonephritis N10 Acute renal failure N17.9 Acute renal failure type: unspecified Displacement of Madrigal catheter T83.021A Encounter type: initial encounter BPH (benign prostatic hyperplasia) N40.1; R33.8 Lower urinary tract symptom presence: symptoms present Lower urinary tract symptom detail: urinary retention COPD (chronic obstructive pulmonary disease) J44.9 COPD type: unspecified COPD Diastolic heart failure of unknown etiology I50.30 AMS (altered mental status) R41.82 Altered mental status type: unspecified Time Spent (min) 45
--- NOTE | 2021-02-26 15:57 | PC.NURSE ---
pt in room feeding him lisette at this time , remains on high flow o2 with frequent coughing noted o2 sats 89. Explained to that patient was not able to swallow well at this time and to please not feed him we are giving him liquids at this time
[2021-02-26 16:35] LABS: Blood Urea Nitrogen 78 mg/dL (8-23); Calcium 8.2 mg/dL (8.5-10.5); Carbon Dioxide 20 mmol/L (22-29); Chloride 104 mmol/L (98-107); Glucose 97 mg/dL (65-115); Osmolality Calculated 309 mOsm/kg (285-295); Sodium 138 mmol/L (136-145)
[2021-02-26 16:44] LABS: Anion Gap 18.5 (5-19); Potassium 4.5 mmol/L (3.5-5.1)
--- NOTE | 2021-02-26 19:29 | PC.PT ---
HOLD PT TODAY PER RN.
--- NOTE | 2021-02-26 19:31 | XRR_ITS ---
PROCEDURE INFORMATION: Exam: XR Chest Exam date and time: 02/26/2021 7:53 PM Age: 75 years old Clinical indication: Shortness of breath; Additional info: Worsening hypoxemia TECHNIQUE: Imaging protocol: XR of the chest. Views: 1 view. COMPARISON: CR XR chest 1V portable [id number] 02/25/2021 5:10 PM FINDINGS: Lungs: Multifocal patchy pulmonary infiltrates are similar to the prior study. Pleural spaces: There is blunting of the left costophrenic angle suggestive of a small pleural effusion. Heart/Mediastinum: Heart size not optimally evaluated with a single AP view of the chest. Bones/joints: Unremarkable. XR/XR chest 1V portable [id number] IMPRESSION: 1. Multifocal patchy pulmonary infiltrates are similar to the prior study and are consistent with pneumonia. 2. Small left pleural effusion.
--- NOTE | 2021-02-26 19:57 | XRR_ITS ---
PROCEDURE INFORMATION: Exam: XR Abdomen Exam date and time: 02/26/2021 8:17 PM Age: 75 years old Clinical indication: Other: Distention; Additional info: Abdominal distention TECHNIQUE: Imaging protocol: XR of the abdomen. Views: Frontal supine view of the abdomen. 1 View. COMPARISON: CT abdomen pelvis w con* [id number] 02/24/2021 10:27 AM FINDINGS: Gastrointestinal tract: Large body habitus of the patient makes evaluation somewhat suboptimal. Normal. No bowel dilation. Bones/joints: Unremarkable. XR/XR abdomen 1V* [id number] IMPRESSION: No acute findings.
[2021-02-26] MEDS: metoprolol tartrate 1 mg/1 mL SDV 5 mL 5 MG IV (20:07)
[2021-02-26 20:20] LABS: Basophils # 0.1 10^3/uL (0.0-0.1); Basophils % 0.5 %; Eosinophils % 0.2 %; Hematocrit 40.1 % (42.0-52.0); Hemoglobin 12.6 g/dL (11.7-16.6); Lymphocytes # 0.6 10^3/uL (0.8-4.8); Lymphocytes % 3.9 %; Mean Corpuscular HGB Conc 31.4 g/dL (30.0-36.0); Mean Corpuscular Hemoglobin 25.4 pg (28.0-34.0); Mean Corpuscular Volume 80.7 fL (80-94); Monocytes # 1.1 10^3/uL (0.2-0.9); Monocytes % 7.5 %; Neutrophils % 87.6 %; Nucleated Red Blood Cells % 0 %; Platelet Count 166 10^3/cmm (130-400); Red Blood Count 4.97 10^6/uL (4.1-5.3); Red Cell Distribution Width 17.7 % (12.1-15.1); White Blood Count 15.1 10^3/uL (4.0-10.0)
[2021-02-26 20:37] LABS: Alanine Aminotransferase 33 U/L (0-41); Albumin Level 2.7 g/dL (3.5-5.2); Alkaline Phosphatase 137 IU/L (40-130); Anion Gap 19.3 (5-19); Aspartate Amino Transferase 33 U/L (0-40); Blood Urea Nitrogen 80 mg/dL (8-23); Calcium 8.2 mg/dL (8.5-10.5); Carbon Dioxide 19 mmol/L (22-29); Chloride 105 mmol/L (98-107); Globulin 3.7 g/dL (1.3-4.6); Glucose 115 mg/dL (65-115); Osmolality Calculated 313 mOsm/kg (285-295); Potassium 4.3 mmol/L (3.5-5.1); Sodium 139 mmol/L (136-145); Total Bilirubin 0.5 mg/dL (0.15-1.2); Total Protein 6.4 g/dL (6.6-8.7)
[2021-02-26 20:38] LABS: Ammonia 35 umol/L (16-60); Lactate (Lactic Acid level) 2.2 mmol/L (0.5-2.2)
[2021-02-26 20:52] LABS: ABG PCO2 29.7 mmHg (35-45); ABG PH Result 7.44 (7.35-7.45); Arterial Blood Gas Hematocrit 42.3 % (42-52); Base Excess ABG -3.1 mmol/L (-2.0-2.0); Blood Gas Allen Test Pos; Blood Gas Sample Type Arterial; HCO3 ABG 19.9 mmol/L (22-26); PO2 ABG 63.1 mmHg (80.0-100.0)
[2021-02-26 20:54] LABS: Blood Gas Operator Identificat JB; Blood Gas Sample Site Radial, right; Oxygen Device BIPAP
[2021-02-26 21:10] LABS: Free T4 Free Thyroxine 1.12 ng/dL (0.82-1.77)
[2021-02-26] MEDS: finasteride 5 mg Tablet PO (21:43)
[2021-02-27] VITALS (57 sets, daily range): BP systolic 113–158; BP diastolic 69–102; PULSE 89–165; RESP 24–40; TEMP 36.6–37.8; O2SAT 87–99
[2021-02-27] MEDS: heparin 5,000 unit/mL INJ 1 mL 5000 UNIT SUBCUT ×2 (03:08→13:41)
[2021-02-27 05:07] LABS: Basophils # 0.1 10^3/uL (0.0-0.1); Basophils % 0.5 %; Hematocrit 38.1 % (42.0-52.0); Lymphocytes # 0.6 10^3/uL (0.8-4.8); Lymphocytes % 4.7 %; Mean Corpuscular HGB Conc 31.5 g/dL (30.0-36.0); Mean Corpuscular Hemoglobin 25.9 pg (28.0-34.0); Mean Corpuscular Volume 82.3 fL (80-94); Mean Platelet Volume 13.1 fL (7.4-10.4); Monocytes # 1.3 10^3/uL (0.2-0.9); Monocytes % 10.5 %; Neutrophils % 83.8 %; Nucleated Red Blood Cells % 0.2 %; Platelet Count 164 10^3/cmm (130-400); Red Blood Count 4.63 10^6/uL (4.1-5.3); Red Cell Distribution Width 18.1 % (12.1-15.1); White Blood Count 12.6 10^3/uL (4.0-10.0)
[2021-02-27 06:59] LABS: Alanine Aminotransferase 27 U/L (0-41); Albumin Level 2.9 g/dL (3.5-5.2); Alkaline Phosphatase 131 IU/L (40-130); Anion Gap 19.9 (5-19); Aspartate Amino Transferase 23 U/L (0-40); Calcium 8.2 mg/dL (8.5-10.5); Carbon Dioxide 21 mmol/L (22-29); Chloride 105 mmol/L (98-107); Free T4 Free Thyroxine 1.05 ng/dL (0.82-1.77); Globulin 3.1 g/dL (1.3-4.6); Glucose 114 mg/dL (65-115); Magnesium 2.2 mg/dL (1.7-2.3); Osmolality Calculated 321 mOsm/kg (285-295); Phosphorus 4.5 mg/dL (2.5-4.5); Potassium 3.9 mmol/L (3.5-5.1); Sodium 142 mmol/L (136-145); T3 Free 0.9 PG/ML (2.0-4.4); Total Bilirubin 0.6 mg/dL (0.15-1.2); Uric Acid 9.5 mg/dL (3.4-7.0)
[2021-02-27 07:34] LABS: Blood Urea Nitrogen 86 mg/dL (8-23)
--- NOTE | 2021-02-27 08:09 | P.PN_ITS ---
Subjective Subjective: Interval history: Yesterday morning, patient was able to eat soft foods and drink from a straw. In the afternoon, patient's family member gave him a marshmallow unbeknownst to nursing staff. He was not able to swallow it and nursing staff had to extract it. He has not been able to suck him through a straw or swallow much since then. He has also had increased issues with hypoxemia. He was placed on BiPAP last night and remains on it. He took it off at one point in time and oxygen saturations dropped down into the 80s. Currently on FiO2 of 40% and PEEP of 8. Saturations are in the mid 90s. Continues to have intermittent SVT. Blood pressures have been stable. He had more than 1500 cc of urine output yesterday. Has increased azotemia today but creatinine is improving. Antibiotics were adjusted based on urine cultures. Medications: Reviewed: Yes Medication Review Details: S/P Rocephin 2 day S/P levaquin and flagyl x 1 dose On Primaxin day 1 > 2 On Vancomycin day 3 Vitals/I&O/Wt Last Vital Signs Temp 97.8 F 02/27/21 04:00 Pulse 161 H 02/27/21 07:40 Resp 34 H 02/27/21 06:15 BP 145/91 02/27/21 06:15 Pulse Ox 96 02/27/21 07:40 02/26/21 02/27/21 02/27/21 22:59 06:59 14:59 Intake Total 1048.75 / 1998.75 100 / 2098.75 Output Total 751 / 1851 575 / 2426 Balance 297.75 / 147.75 -475 / -327.25 Bowel movement noted last evening Weight last 48 hrs Weight 89.539 kg Weight 97.296 kg Physical Exam Narrative: EXAM NARRATIVE: Constitutional: On BiPAP, holding his neck, is able to talk but more difficult to understand with BiPAP. HEENT: Lips dry, oropharynx not currently directly evaluated Respiratory: Clear anteriorly, crackles at bases, chest expansion equal bilaterally Cardiovascular: Tachycardic, regular rhythm Abdomen: Softer today, rotund, less suprapubic tenderness : Madrigal catheter intact Extremities: No pitting edema, no mottling, 1+ pulses Skin: Dry Neuro: Speech at baseline, moves all extremities, able to bring a cup of water with a straw up to his mouth Urinary Catheter Management^: Madrigal: Cath Placed During This Visit: no Reason for Continuing Indwelling Catheter: Chronic Indwelling Urinary Catheter on Admission Data : 02/27/21 03:55 02/27/21 06:14 Micro: Microbiology 02/26/21 11:40 Bacterial Antigens - Final Urine,Clean Catch 02/26/21 10:15 Gram Stain - Final Sputum - Endotracheal Tube Aspirate 02/24/21 11:14 Urine Culture - Final Urine,Clean Catch Escherichia coli esbl 02/25/21 09:24 Blood Culture - Preliminary Blood NEGATIVE TO DATE 02/25/21 07:41 Blood Culture - Preliminary Blood NEGATIVE TO DATE Renal US 02/26/21: Radiologist's impression: FINDINGS: Right kidney: Right kidney measures 12.8 cm in length. No hydronephrosis. Nonspecific 10 mm linear echogenic structure in the lower pole of the right kidney, without acoustic shadowing. CT correlation can be performed for improved characterization if clinically indicated. Left kidney: Left kidney measures 14.8 cm in length. No renal mass or hydronephrosis. Urinary bladder: Madrigal catheter in the decompressed bladder. IMPRESSION: Nonspecific 10 mm linear echogenic structure in the lower pole of the right kidney, without acoustic shadowing. CT can be performed for improved characterization if clinically indicated. A&P Assessment and plan (1) Sepsis: Etiology at admission consistent with cystitis and pyelonephritis. Chest x-ray at admission demonstrated possibility of pneumonia on the left. He has had further consolidation since admission bilaterally with the left lung more involved than the right. Has continued to maintain blood pressures. Has ass ociated acute encephalopathy, fever, leukocytosis, tachycardia, acute renal failure. Status: Acute Qualifiers: Acute renal failure type: unspecified Sepsis acute organ dysfunction status: with acute organ dysfunction Sepsis type: sepsis due to unspecified organism Severe sepsis acute organ dysfunction type: acute renal failure Severe sepsis shock status: with septic shock Qualified Code(s): A41.9 - Sepsis, unspecified organism; R65.21 - Severe sepsis with septic shock; N17.9 - Acute kidney failure, unspecified (2) Acute pyelonephritis: In a patient with chronic Madrigal catheter and recurrent displacement of Madrigal into the prostate Status: Acute (3) Displacement of Madrigal catheter: This is now a recurrent problem, with second episode of Madrigal catheter bulb migrating into the prostate and causing acute urinary retention/obstruction. Consideration may need to be given to suprapubic catheter placement at some point. Hydroureteronephrosis has resolved per renal ultrasound last evening Status: Acute Qualifiers: Encounter type: initial encounter Qualified Code(s): T83.021A - Displacement of indwelling urethral catheter, initial encounter (4) Urinary retention: Urinary catheter repositioned in the emergency department with subsequent improved drainage. Placement re-confirmed via bladder ultrasound on 02/25. Status: Acute (5) Acute renal failure: Secondary to infection and obstruction and a component of prerenal after diuresis Status: Acute Qualifiers: Acute renal failure type: unspecified Qualified Code(s): N17.9 - Acute kidney failure, unspecified (6) Bilateral pneumonia: Present on admission, healthcare associated versus aspiration. May have had another aspiration event on 02/26 when family fed him a marshmallow. Status: Acute Qualifiers: Lung location: unspecified part of lung Pneumonia type: due to unspecified organism Qualified Code(s): J18.9 - Pneumonia, unspecified organism (7) SVT (supraventricular tachycardia): Has a history of frequent PVCs and is on chronic beta-blockade. With critical illness has had frequent SVT. Beta-blockade initially resumed at a lower dose orally then transition to IV with clinical decline Status: Acute (8) COPD (chronic obstructive pulmonary disease): Status: Chronic Qualifiers: COPD type: unspecified COPD Qualified Code(s): J44.9 - Chronic obstructive pulmonary disease, unspecified (9) BPH (benign prostatic hyperplasia): Status: Chronic Qualifiers: Lower urinary tract symptom detail: urinary retention Lower urinary tract symptom presence: symptoms present Qualified Code(s): N40.1 - Benign prostatic hyperplasia with lower urinary tract symptoms; R33.8 - Other retention of urine (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 Additional A&P Information Echo 01/25/2021 with mild to moderate decrease in systolic function with elevated filling pressures, elevated BNP Elevated TSH, normal free T4, low free T3, total T3 pending, may be critical illness related not known hypothyroidism Mild increase in transaminases, resolved Intermittent hyperglycemia without history of diabetes Renal US on 02/26 with nonspecific linear echogenic structure lower pole right kidney >> had marked perinephric stranding in the right kidney at presentation on CT imaging Complaining of throat pain, he may simply be wanting something to drink which was a common theme last time but cannot rule out continued presence of marshmallow substance after yesterday N.p.o. status Check repeat chest x-ray and ABG Will evaluate oropharynx more thoroughly after May have to consider direct visualization Pulmonology following for assistance Given inability to take oral medications changed to IV metoprolol Continue Primaxin and vancomycin Follow-up pending cultures Has not required pressor support Continue IV fluids Check BMP this afternoon, may need change to fluids with potassium Continue to watch renal function and urinary output closely, maintain Madrigal catheter as it is chronic as well as necessary for critical illness currently With improvement in creatinine, will hold on nephrology consultation but continue to consider as appropriate Suspect will need some degree of diuresis at some point but appears dry currently Continue BiPAP support, monitor for need to intubate On scheduled duo nebs and budesonide, continue as needed albuterol Continue home finasteride, resume Flomax Monitor blood sugars for need to intervene Chronically on PPI Chronically on aspirin Subcu heparin for DVT prophylaxis Will need thyroid function studies rechecked in a few weeks Disposition will be back to jail, I suspect this can need more rehabilitation this time than he did last time Urology is not available this week for consultation but patient should be evaluated for consideration of suprapubic catheter placement at some point given the recurrent migration of the Madrigal catheter into the prostate resulting in hospitalization in acute, even critical illness FULL code -verified with patient again today that if he were to require intubation he would want this Attestations Medical Necessity Statement*: Requires ongoing inpatient stay as well as ICU care secondary to tenuous condition and high risk of rapid clinical decline necessitating invasive respiratory support. Plans are as indicated Coding Level of Care Code Acute Drug Abuse Resistance Education Officer for [facility] Fwd Diagnoses Sepsis A41.9; R65.21; N17.9 Acute renal failure type: unspecified Sepsis acute organ dysfunction status: with acute organ dysfunction Sepsis type: sepsis due to unspecified organism Severe sepsis acute organ dysfunction type: acute renal failure Severe sepsis shock status: with septic shock Acute pyelonephritis N10 Displacement of Madrigal catheter T83.021A Encounter type: initial encounter Urinary retention R33.9 Acute renal failure N17.9 Acute renal failure type: unspecified Bilateral pneumonia J18.9 Lung location: unspecified part of lung Pneumonia type: due to unspecified organism SVT (supraventricular tachycardia) I47.1 COPD (chronic obstructive pulmonary disease) J44.9 COPD type: unspecified COPD BPH (benign prostatic hyperplasia) N40.1; R33.8 Lower urinary tract symptom detail: urinary retention Lower urinary tract symptom presence: symptoms present Dementia of frontal lobe type G31.09; F02.80
--- NOTE | 2021-02-27 08:38 | XRR_ITS ---
PROCEDURE INFORMATION: Exam: XR Chest Exam date and time: 02/27/2021 8:40 AM Age: 75 years old Clinical indication: Shortness of breath; Additional info: Hypoxemia, requiring bipap, penumonia TECHNIQUE: Imaging protocol: XR of the chest. Views: 1 view. COMPARISON: CR (CHEST, ) 02/26/2021 8:17 PM FINDINGS: Lungs: COPD, interstitial disease, and worsening left-sided airspace disease. Mild interval improvement in right-sided airspace disease. Pleural spaces: Questionable small left pleural effusion. Heart/Mediastinum: Borderline cardiomegaly. Bones/joints: Degenerative change. XR/XR chest 1V portable [id number] IMPRESSION: COPD, interstitial disease, and worsening left-sided airspace disease.
[2021-02-27] MEDS: metoprolol tartrate 1 mg/1 mL SDV 5 mL 5 MG IV ×4 (08:49→20:51)
[2021-02-27 09:14] LABS: ABG PCO2 34.5 mmHg (35-45); ABG PH Result 7.42 (7.35-7.45)
[2021-02-27 09:15] LABS: Base Excess ABG -1.9 mmol/L (-2.0-2.0); Blood Gas Allen Test POS; Blood Gas Operator Identificat GD; HCO3 ABG 22.1 mmol/L (22-26); Oxygen Device BIPAP; PO2 ABG 92.7 mmHg (80.0-100.0)
[2021-02-27 09:16] LABS: Arterial Blood Gas Hematocrit 38.1 % (42-52); BIPAP 16/8; Blood Gas Sample Site LEFT RADIAL; Blood Gas Sample Type ART
[2021-02-27] MEDS: sodium chloride 0.9% 1,000 ML 75 ML IV (10:54)
--- NOTE | 2021-02-27 12:51 | PM.PN ---
Subjective Subjective: Interval history: -Mr. Ben Zhang is on BiPAP overnight -ABG on BiPAP 30/05 40% FiO2 showed 7.4 // 2/84% saturation -Awakens to communicating but appeared weak and tired -Saturating 90% on 11 L nasal cannula -Patient is chronically bedridden and weak secondary to Lewy body dementia and Parkinson's, -At high risk for intubation and patient expressed wishes to be intubated if his respiration fails -patient refused PEG tube wants to eat - Also at high risk for aspiration-and he understands the risk of having aspiration and related complications -Started on dysphagia pur?ed diet and feed with aspiration precautions -Labs and imaging reviewed Medications: Reviewed: Yes Vitals/I&O/Wt Last Vital Signs Temp 98.5 F 02/27/21 12:00 Pulse 155 H 02/27/21 12:00 Resp 34 H 02/27/21 12:00 BP 138/82 02/27/21 12:00 Pulse Ox 91 02/27/21 12:00 02/26/21 02/27/21 02/27/21 22:59 06:59 14:59 Intake Total 1048.75 / 1998.75 100 / 2098.75 1100 / 1100 Output Total 751 / 1851 575 / 2426 Balance 297.75 / 147.75 -475 / -327.25 1100 / 1100 Weight last 48 hrs Weight 197 lb 6.4 oz Weight 214 lb 8 oz Physical Exam Narrative: EXAM NARRATIVE: General: alert, appears weak-NAD on 1 L nasal cannula saturating 91% HEENT: conj clear, EOMI, PERRL, mmm, Neck: supple, no meningismus Heme: no cervical LAP Pulmonary: CTAB, no wheezing, rhonchi, crackles Cardiovascular: rrr, nl s1s2, no mrg Abdomen: soft, appears distended, nt, nd, no r/g, bs+ Extremities: pulses +, no edema, no c/c : no CVA tenderness Skin: intact, no rash MSK: no back or neck pain Neurologic: grossly intact Urinary Catheter Management^: Madrigal: Cath Placed During This Visit: no Reason for Continuing Indwelling Catheter: Chronic Indwelling Urinary Catheter on Admission Data : 02/27/21 03:55 02/27/21 06:14 Other Labs: Laboratory Results WBC 12.6 10^3/uL (4.0-10.0) H 02/27/21 03:55 RBC 4.63 10^6/uL (4.1-5.3) 02/27/21 03:55 Hgb 12.0 g/dL (11.7-16.6) 02/27/21 03:55 Hct 38.1 % (42.0-52.0) L 02/27/21 03:55 MCV 82.3 fL (80-94) 02/27/21 03:55 MCH 25.9 pg (28.0-34.0) L 02/27/21 03:55 MCHC 31.5 g/dL (30.0-36.0) 02/27/21 03:55 RDW 18.1 % (12.1-15.1) H 02/27/21 03:55 Plt Count 164 10^3/cmm (130-400) 02/27/21 03:55 MPV 13.1 fL (7.4-10.4) H 02/27/21 03:55 Neut % (Auto) 83.8 % 02/27/21 03:55 Lymph % (Auto) 4.7 % 02/27/21 03:55 [place] % (Auto) 10.5 % 02/27/21 03:55 Eos % (Auto) 0.0 % 02/27/21 03:55 Baso % (Auto) 0.5 % 02/27/21 03:55 Neut # (Auto) 10.60 10^3/uL (1.8-7.7) H 02/27/21 03:55 Lymph # (Auto) 0.6 10^3/uL (0.8-4.8) L 02/27/21 03:55 [place] # (Auto) 1.3 10^3/uL (0.2-0.9) H 02/27/21 03:55 Eos # (Auto) 0.0 10^3/uL (0.0-0.8) 02/27/21 03:55 Baso # (Auto) 0.1 10^3/uL (0.0-0.1) 02/27/21 03:55 Nucleated RBC % (auto) 0.2 % 02/27/21 03:55 Total Counted 100 (0-100) 02/25/21 03:37 Atypical Lymphs % 0.0 % (0-5) 02/25/21 03:37 Absolute Neutrophils 5.5 10^3/cmm (1.4-6.5) 02/25/21 03:37 Segmented Neutrophils 45 % 02/25/21 03:37 Abs Segm Neuts (Man) 4.9 10/cmm (1.6-7.1) 02/25/21 03:37 Band Neutrophils 5.0 % 02/25/21 03:37 Abs Band Neuts (Man) 0.5 10^3/cmm (0.0-1.2) 02/25/21 03:37 Absolute Lymphocytes 0.8 10^3/cmm (1.2-3.4) L 02/25/21 03:37 Lymphocytes (Manual) 7 % 02/25/21 03:37 Monocytes (Manual) 0.0 % 02/25/21 03:37 Absolute Monocytes 0.0 10^3/cmm (0.1-0.6) L 02/25/21 03:37 Eosinophils (Manual) 0 % 02/25/21 03:37 Absolute Eosinophils 0.0 10^3/cmm (0.0-0.7) 02/25/21 03:37 Basophils (Manual) 0.0 % 02/25/21 03:37 Absolute Basophils 0.0 10^3/cmm (0.0-0.2) 02/25/21 03:37 Nucleated RBCs # 0.0 /100WBC 02/27/21 03:55 Platelet Estimate Decreased (Normal) 02/25/21 03:37 Specimen Type Art 02/27/21 08:55 Sample Site Left radial 02/27/21 08:55 ABG pH 7.42 (7.35-7.45) 02/27/21 08:55 ABG pCO2 34.5 mmHg (35-45) L 02/27/21 08:55 ABG pO2 92.7 mmHg (80.0-100.0) 02/27/21 08:55 ABG HCO3 22.1 mmol/L (22-26) 02/27/21 08:55 ABG O2 Saturation 84.2 02/25/21 17:23 ABG Base Excess -1.9 mmol/L (-2.0-2.0) 02/27/21 08:55 Piotr Test Pos 02/27/21 08:55 A-a O2 Gradient 7.9 mmHg (5-10) 02/25/21 17:23 Hematocrit 38.1 % (42-52) L 02/27/21 08:55 Hgb O2 Saturation 82.3 % (95-100) L 02/25/21 17:23 Carboxyhemoglobin 1.3 %THgb (0.4-20.1) 02/25/21 17:23 Methemoglobin 1.0 % (0.4-1.5) 02/25/21 17:23 Total Hemoglobin 12.4 g/dL (14-18) L 02/25/21 17:23 Sodium 137.0 mmol/L (131-143) 02/25/21 17:23 Potassium 4.5 mmol/L (3.5-5.0) 02/25/21 17:23 Glucose 139.0 mg/dL (70-115) H 02/25/21 17:23 Ionized Calcium 1.2 mmol/L (1.1-1.4) 02/25/21 17:23 O2 Delivery Device Bipap 02/27/21 08:55 O2 Liters/Min 8.0 % 02/26/21 10:51 FiO2 40.0 % 02/27/21 08:55 Mode BiPAP 30/0502/27/21 08:55 Specimen Drawn By Frankie 02/27/21 08:55 Faculty I On Call Medical Assistant ID Gd 02/27/21 08:55 Sodium 142 mmol/L (136-145) 02/27/21 06:14 Potassium 3.9 mmol/L (3.5-5.1) 02/27/21 06:14 Chloride 105 mmol/L (98-107) 02/27/21 06:14 Carbon Dioxide 21 mmol/L (22-29) L 02/27/21 06:14 Anion Gap 19.9 (5-19) H 02/27/21 06:14 BUN 86 mg/dL (8-23) H* 02/27/21 06:14 Creatinine 2.8 mg/dL (0.7-1.2) H 02/27/21 06:14 GFR Calculation Not Reportable 02/27/21 06:14 Glucose 114 mg/dL (65-115) 02/27/21 06:14 Calculated Osmolality 321 mOsm/kg (285-295) H 02/27/21 06:14 Lactic Acid 2.5 mmol/L (0.5-2.2) H 02/25/21 20:29 Lactic Acid (Sepsis) 2.4 mmol/L (0.5-2.2) H 02/26/21 01:59 Lactate 2.2 mmol/L (0.5-2.2) 02/26/21 19:53 Uric Acid 9.5 mg/dL (3.4-7.0) H 02/27/21 06:14 Calcium 8.2 mg/dL (8.5-10.5) L 02/27/21 06:14 Phosphorus 4.5 mg/dL (2.5-4.5) 02/27/21 06:14 Magnesium 2.2 mg/dL (1.7-2.3) 02/27/21 06:14 Total Bilirubin 0.6 mg/dL (0.15-1.2) 02/27/21 06:14 AST 23 U/L (0-40) 02/27/21 06:14 ALT 27 U/L (0-41) 02/27/21 06:14 Alkaline Phosphatase 131 IU/L (40-130) H 02/27/21 06:14 Ammonia 35 umol/L (16-60) 02/26/21 19:53 Creatine Kinase 149 U/L (39-308) 02/24/21 10:06 NT-Pro-B Natriuret Pep 5751 pg/mL (0-450) H 02/25/21 20:29 Total Protein 6.0 g/dL (6.6-8.7) L 02/27/21 06:14 Albumin 2.9 g/dL (3.5-5.2) L 02/27/21 06:14 Globulin 3.1 g/dL (1.3-4.6) 02/27/21 06:14 Lipase 13 U/L (13-60) 02/24/21 10:06 Procalcitonin 20.13 ng/mL (0-0.5) H 02/24/21 10:06 TSH 5.48 uIU/mL (0.27-4.20) H 02/24/21 10:06 Free T4 1.05 ng/dL (0.82-1.77) 02/27/21 06:14 Free T3 0.9 PG/ML (2.0-4.4) L 02/27/21 06:14 Urine Color Yellow (Yellow) 02/24/21 11:14 Urine Appearance Cloudy (CLEAR) 02/24/21 11:14 Urine pH 6 (5-7) 02/24/21 11:14 Ur Specific [place] 1.015 (1.005-1.030) 02/24/21 11:14 Urine Protein 1+ (Negative) H 02/24/21 11:14 Urine Glucose (UA) Norm (Normal) 02/24/21 11:14 Urine Ketones Negative (Negative) 02/24/21 11:14 Urine Blood 3+ (Negative) H 02/24/21 11:14 Urine Nitrate Negative (Negative) 02/24/21 11:14 Urine Bilirubin Neg (Negative) 02/24/21 11:14 Urine Urobilinogen Norm mg/dL (Negative) 02/24/21 11:14 Ur Leukocyte Esterase 2+ (Negative) H 02/24/21 11:14 Urine RBC 15-25 /hpf (0-2) H 02/24/21 11:14 Urine WBC >100 /hpf (0-5) H 02/24/21 11:14 Ur Squamous Epith Cells 0-4 /hpf (0-5) H 02/24/21 11:14 Amorphous Sediment Not Reportable 02/24/21 11:14 Urine Bacteria 1+ /hpf (NONE) H 02/24/21 11:14 Impressions Abdomen/Pelvis CT 02/24/21 09:29 IMPRESSION: 1. Moderate bilateral hydroureteronephrosis and perinephric stranding, RIGHT greater than LEFT. Suspect bilateral pyelonephritis. 2. Hydroureteronephrosis is likely secondary to an overly distended urinary bladder. No obstructing stones identified. 3. Enlarged prostate gland with a Madrigal catheter balloon distended within the prostate urethra. Despite the Madrigal catheter urinary bladder continues to be dilated. Recommend repositioning this Madrigal catheter. 4. Debris within the urinary bladder may be bladder or related to infection. 5. Study is significantly compromised by motion. 6. Small LEFT pleural effusion is unchanged. Bladder Ultrasound 02/25/21 17:40 IMPRESSION: 1. Decompressed urinary bladder. 2. Madrigal catheter bulb identified within the lumen of the urinary bladder. Venous Duplex 02/26/21 09:35 IMPRESSION: No deep venous thrombosis in the visualized bilateral lower extremities. Abdomen X-Ray 02/26/21 19:57 IMPRESSION: No acute findings. Chest X-Ray 02/27/21 08:38 IMPRESSION: COPD, interstitial disease, and worsening left-sided airspace disease. Renal Ultrasound 02/27/21 19:35 IMPRESSION: Nonspecific 10 mm linear echogenic structure in the lower pole of the right kidney, without acoustic shadowing. CT can be performed for improved characterization if clinically indicated. Micro: Microbiology 02/26/21 10:15 Gram Stain - Final Sputum - Endotracheal Tube Aspirate Sputum Culture - Preliminary Yeast 02/26/21 11:40 Bacterial Antigens - Final Urine,Clean Catch 02/24/21 11:14 Urine Culture - Final Urine,Clean Catch Escherichia coli esbl 02/25/21 09:24 Blood Culture - Preliminary Blood NEGATIVE TO DATE 02/25/21 07:41 Blood Culture - Preliminary Blood NEGATIVE TO DATE A&P Assessment and plan (1) Bilateral pneumonia: Status: Acute Qualifiers: Pneumonia type: due to unspecified organism Lung location: unspecified part of lung Qualified Code(s): J18.9 - Pneumonia, unspecified organism (2) Acute pyelonephritis: Status: Acute (3) Acute renal failure: Status: Acute Qualifiers: Acute renal failure type: unspecified Qualified Code(s): N17.9 - Acute kidney failure, unspecified (4) Displacement of Madrigal catheter: Status: Acute Qualifiers: Encounter type: initial encounter Qualified Code(s): T83.021A - Displacement of indwelling urethral catheter, initial encounter (5) BPH (benign prostatic hyperplasia): Status: Chronic Qualifiers: Lower urinary tract symptom presence: symptoms present Lower urinary tract symptom detail: urinary retention Qualified Code(s): N40.1 - Benign prostatic hyperplasia with lower urinary tract symptoms; R33.8 - Other retention of urine (6) COPD (chronic obstructive pulmonary disease): Status: Chronic Qualifiers: COPD type: unspecified COPD Qualified Code(s): J44.9 - Chronic obstructive pulmonary disease, unspecified (7) Diastolic heart failure of unknown etiology: Status: Chronic (8) AMS (altered mental status): Status: Acute Qualifiers: Altered mental status type: unspecified Qualified Code(s): R41.82 - Altered mental status, unspecified Assessment and plan and recommendations: #AMS and CHARLA secondary to sepsis secondary to Suspect bilateral pyelonephritis underlying Lewy body dementia #Suspect bilateral pyelonephritis and bilateral hydroureteronephrosis due to dislodged catheter; #Sepsis secondary to E. coli urosepsis and left lower lobe pneumonia #urine culture positive for MDR E. coli sensitive to imipenem #Chest d-oin-ambthsjet infiltrates left greater > right; suspect pneumonitis-high risk for aspiration #mild to moderately decreased LV function and grade 3/4 diastolic dysfunction on echo 01/25/2021 #Hypoxia-secondary to fluid vs pneumonitis vs??? PE(high risk for PE due to immobilization) #COPD #Intermittent SVT -Currently on imipenem for E. coli urosepsis based on sensitivity with and vancomycin for previous history of staph evidences (to DC if MRSA nares and final blood cultures negative) -Chest x-ray today worsening left lower lobe opacity-covered with imipenem and vancomycin -Sputum endotracheal aspirate-preliminary culture showed yeast-identification pending -After catheterization and s/p Lasix 2 doses, very good urine output about 100 cc/h -I/O/N-2 L/2.4 L / -300 mL in last 24 hours, since admission 10 L/10 L / -300 mL -Finasteride 5 mg p.o. daily and Flomax 0.4 p.o. twice daily -Improving mentation, lactic acid and renal functions -Intermittent SVT-secondary to sepsis and fluid deficiency-electrolytes are within normal limits -Currently on metoprolol 5 mg IV every 4 scheduled -Bedside ultrasound on 02/27/2021 showed collapsed IVC and [place] assessment showed patient is volume deficient-given 500 cc bolus and currently IV hydration at 75 cc/h. -Given patient recent echo 01/25/2021 with mild to moderately decreased LV function and grade 3/4 diastolic dysfunction-closely monitor input output and signs of edema -try to keep patient slight negative to net even -Patient is at high risk for aspiration due to chronic underlying Lewy body dementia and deconditioning and he is aware of possible complications associated with aspiration but still refused PEG tube/NG tube and wants to eat.-recommended aspiration precautions and feeding with assistance, already on imipenem for anaerobic coverage -Hypoxia can be secondary to bilateral infiltrates due to pneumonitis vs fluid; although patient is at high risk for PE due to immobilization-bedside ultrasound did not show any bilateral DVT; and a gradient and ABG is normal; CT angiogram with PE protocol could not be obtained due to renal function. -Currently on BiPAP at night 16 40% FiO2: 7.4 /92/20 292%-switch to daytime nasal cannula 10 to 12 L -Currently covered with prophylactic heparin 5000 every 12-hour SC; if patient hypoxia worsens-we will go ahead and switch to full dose anticoagulation and do CTA once renal functions normalize to rule out PE -on DuoNeb nebulization every 6 scheduled and budesonide 0.5 twice daily nebulizations for COPD Patient is at high risk for intubation due to his overall deconditioning and underlying dementia with ongoing pneumonia and CHF. Patient expressed wishes to be intubated during last admission. If he gets intubated-it will be a very difficult extubation considering his overall deconditioned state and underlying dementia and would need trach and PEG. Recommendation was discussed with Dr. Guzmán hospitalist and RN covering the patient Attestations Medical Necessity Statement*: Requires ongoing inpatient stay as well as ICU care secondary to tenuous condition and high risk of rapid clinical decline necessitating invasive respiratory support. Plans are as indicated Time Spent in Patient Care: Greater than 35 minutes (>than 50% of time spent in counselling and/or direct pt care on unit). The high probability of a clinically significant, sudden or life threatening deterioration of the patient's neurological, respiratory, cardiac, renal, infectious Required my full and direct attention, intervention and personal management. The critical care time is as shown. This time is in addition to time spent performing any reported procedures but includes the following: [x] Data and vital sign review and interpretation [x] Patient assessment, examination and intervention [x] Documentation [x] Medication orders and management Critical Care Time: Critical Care Time (min): 45 Coding Level of Care Code Established Pt Acute Foreign Exchange Student Coordinator for Chg Fwd Patient Type Established History Comprehensive Exam Comprehensive Medical Decision Making High Complexity Diagnoses Bilateral pneumonia J18.9 Pneumonia type: due to unspecified organism Lung location: unspecified part of lung Acute pyelonephritis N10 Acute renal failure N17.9 Acute renal failure type: unspecified Displacement of Madrigal catheter T83.021A Encounter type: initial encounter BPH (benign prostatic hyperplasia) N40.1; R33.8 Lower urinary tract symptom presence: symptoms present Lower urinary tract symptom detail: urinary retention COPD (chronic obstructive pulmonary disease) J44.9 COPD type: unspecified COPD Diastolic heart failure of unknown etiology I50.30 AMS (altered mental status) R41.82 Altered mental status type: unspecified Time Spent (min) 45
[2021-02-27] MEDS: ipratropium-albuterol 3 mL Neb INHALATION (14:29)
[2021-02-27 15:13] LABS: Vancomycin Trough 7.2 ug/mL (10-15)
[2021-02-27] MEDS: vancomycin 1,500 MG/300 ML PIGGYBACK 200 MG IV (15:18)
[2021-02-27] MEDS: tamsulosin 0.4 mg Capsule PO (17:49)
--- NOTE | 2021-02-27 19:35 | USR_ITS ---
PROCEDURE INFORMATION: Exam: US Retroperitoneal; Complete; Kidneys and Bladder Exam date and time: 02/27/2021 7:05 AM Age: 75 years old Clinical indication: Abnormal findings; Abnormal lab test; Abnormal kidney function lab tests; Additional info: Feng, ckd TECHNIQUE: Imaging protocol: Real-time ultrasound of the retroperitoneum with image documentation. Complete exam focused on the kidneys and bladder. COMPARISON: US bladder [id number] 02/25/2021 6:21 PM FINDINGS: Right kidney: Right kidney measures 12.8 cm in length. No hydronephrosis. Nonspecific 10 mm linear echogenic structure in the lower pole of the right kidney, without acoustic shadowing. CT correlation can be performed for improved characterization if clinically indicated. Left kidney: Left kidney measures 14.8 cm in length. No renal mass or hydronephrosis. Urinary bladder: Madrigal catheter in the decompressed bladder. US/US renal BI* [id number] IMPRESSION: Nonspecific 10 mm linear echogenic structure in the lower pole of the right kidney, without acoustic shadowing. CT can be performed for improved characterization if clinically indicated.
[2021-02-27] MEDS: budesonide 0.5 mg/2 mL Neb INHALATION (19:55)
[2021-02-27] MEDS: D5-NS 0.45% + KCL 20 mEq 20 MEQ/1,000 ML BAG 75 MEQ IV (21:48)
[2021-02-28] VITALS (35 sets, daily range): BP systolic 128–183; BP diastolic 70–100; PULSE 80–169; RESP 22–37; TEMP 35.9–37.7; O2SAT 87–100
[2021-02-28] MEDS: metoprolol tartrate 1 mg/1 mL SDV 5 mL 5 MG IV ×5 (00:35→12:52)
[2021-02-28] MEDS: heparin 5,000 unit/mL INJ 1 mL 5000 UNIT SUBCUT ×2 (03:15→15:20)
[2021-02-28 04:35] LABS: Procalcitonin 4.27 ng/mL (0-0.5)
[2021-02-28 04:55] LABS: Alanine Aminotransferase 19 U/L (0-41); Albumin Level 2.4 g/dL (3.5-5.2); Alkaline Phosphatase 123 IU/L (40-130); Aspartate Amino Transferase 16 U/L (0-40); Blood Urea Nitrogen 74 mg/dL (8-23); Calcium 8.1 mg/dL (8.5-10.5); Carbon Dioxide 20 mmol/L (22-29); Chloride 113 mmol/L (98-107); Globulin 3.4 g/dL (1.3-4.6); Glucose 130 mg/dL (65-115); Magnesium 2.2 mg/dL (1.7-2.3); Osmolality Calculated 326 mOsm/kg (285-295); Phosphorus 3.6 mg/dL (2.5-4.5); Sodium 146 mmol/L (136-145); Total Bilirubin 0.5 mg/dL (0.15-1.2); Total Protein 5.8 g/dL (6.6-8.7); Uric Acid 9.8 mg/dL (3.4-7.0)
--- NOTE | 2021-02-28 06:20 | PC.NURSE ---
Pt has occasional heart rates up to 160s, usually lasting for less than 3 minutes (otherwise heart rate 80s -110). Pt asymptomatic during these times. MD notified. Meds given as previously ordered. Will continue to monitor and notify MD as needed. Pt wore bipap majority of shift. Turned every 2 hours. Pt unable to swallow evening pills.
[2021-02-28] MEDS: ipratropium-albuterol 3 mL Neb INHALATION (08:41)
[2021-02-28] MEDS: budesonide 0.5 mg/2 mL Neb INHALATION (08:41)
--- NOTE | 2021-02-28 10:36 | XRR_ITS ---
PROCEDURE INFORMATION: Exam: XR Chest Exam date and time: 02/28/2021 1:18 PM Age: 75 years old Clinical indication: Shortness of breath; Patient HX: PT unable to provide history; Additional info: SOB TECHNIQUE: Imaging protocol: XR of the chest. Views: 1 view. COMPARISON: CR (CHEST, ) 02/27/2021 9:57 AM FINDINGS: Lungs: Bilateral diffuse interstitial pulmonary infiltrates are present especially prominent in the left lung. These have not significantly changed since previous radiographs. Pleural spaces: Small stable bilateral pleural effusions are present. There is no pneumothorax. Heart/Mediastinum: Unremarkable. No cardiomegaly. Bones/joints: Unremarkable. XR/XR chest 1V portable [id number] IMPRESSION: Diffuse bilateral interstitial pulmonary infiltrates especially in the left lung. No significant change.
--- NOTE | 2021-02-28 10:47 | P.PN_ITS ---
Subjective Subjective: Interval history: Patient was seen multiple times in the morning, during the morning he was on a BiPAP, he was indicating that he wanted the BiPAP off, he was not tolerating it well, Patient was reexamined later on, he was off BiPAP on 15 L, sitting up in bed, alert to person, place, patient has had a PEG in the past due to chronic aspiration, he has had a tracheostomy in the past due to chronic aspiration, he tells me that he absolutely does not want a PEG to place, he wants to orally consume his meals, I went over extensive details about the risk of chronic aspiration, the use of PEG tubes to decrease the risk of chronic aspiration, although not 100% effective and it does not improve the quality of life, it will decrease his risk of recurrent aspiration, and complications associated, I went over the complications of chronic inspiration including but not limited to the risk of intubation, mechanical ventilation, tracheostomy, he is at risk of morbidity and mortality while on mechanical ventilation, he voiced understanding, all questions answered, declines PEG tube placement, understands complications associated with it. I advised patient that currently we are working on placing him on select, as he has chronic aspiration, is on 15 L, he will chronically need monitoring I spoke to patient's Joie early this morning, went over the case as above , she tells me that he has had a trach and a PEG in the past, this aspiration pneumonia has been a chronic issue for him, his concern is that he has a dry throat, which bothers him, she will try to come to the hospital to try to convince him Vitals/I&O/Wt Last Vital Signs Temp 96.6 F L 02/28/21 10:00 Pulse 96 02/28/21 10:00 Resp 29 H 02/28/21 10:00 BP 169/89 02/28/21 10:00 Pulse Ox 94 02/28/21 10:00 02/27/21 02/28/21 02/28/21 22:59 06:59 14:59 Intake Total 460 / 2019 100 / 2120 Output Total 1776 / 3026 1600 / 4626 1000 / 1000 Balance -1316 / -1006 -1500 / -2506 -1000 / -1000 Weight last 48 hrs Weight 90.855 kg Weight 89.539 kg Physical Exam Const: COMMON NORMALS: no acute distress GENERAL APPEARANCE: cooperative ORIENTATION/CONSCIOUSNESS: Yes awake, Yes oriented to person, Yes oriented to place and Yes oriented to time Chest: COMMONS NORMALS: normal inspection of the chest Resp: COMMON NORMALS: normal respiratory effort, No retractions and No use of accessory muscles AUSCULTATION: crackles GI: COMMON NORMALS: Normal to inspection, nondistended, normoactive bowel sounds present, Soft to palpation and non-tender PALPATION: Yes Soft to palpation Extremity: COMMON NORMALS: no pedal edema Neuro: SENSORIUM/ORIENTATION: Yes oriented to person, Yes oriented to place and Yes oriented to time Urinary Catheter Management^: Madrigal: Cath Placed During This Visit: no Reason for Continuing Indwelling Catheter: Chronic Indwelling Urinary Catheter on Admission Data : 02/27/21 03:55 02/28/21 03:21 Micro: Microbiology 02/26/21 10:15 Gram Stain - Final Sputum - Endotracheal Tube Aspirate Sputum Culture - Preliminary Yeast A&P Assessment and plan (1) Sepsis: Etiology at admission consistent with cystitis and pyelonephritis and recurrent aspiration pneumonia. Chest x-ray at admission demonstrated possibility of pneumonia on the left. He has had further consolidation since admission bilaterally with the left lung more involved than the right. Has continued to maintain blood pressures. Has associated acute encephalopathy, fever, leukocytosis, tachycardia, acute renal failure. Status: Acute Qualifiers: Acute renal failure type: unspecified Sepsis acute organ dysfunction status: with acute organ dysfunction Sepsis type: sepsis due to unspecified organism Severe sepsis acute organ dysfunction type: acute renal failure Severe sepsis shock status: with septic shock Qualified Code(s): A41.9 - Sepsis, unspecified organism; R65.21 - Severe sepsis with septic shock; N17.9 - Acute kidney failure, unspecified (2) Acute pyelonephritis: In a patient with chronic Madrigal catheter and recurrent displacement of Madrigal into the prostate Status: Acute (3) Displacement of Madrigal catheter: This is now a recurrent problem, with second episode of Madrigal catheter bulb migrating into the prostate and causing acute urinary retention /obstruction. Consideration may need to be given to suprapubic catheter placement at some point. Hydroureteronephrosis has resolved per renal ultrasound last evening Status: Acute Qualifiers: Encounter type: initial encounter Qualified Code(s): T83.021A - Displacement of indwelling urethral catheter, initial encounter (4) Urinary retention: Urinary catheter repositioned in the emergency department with subsequent improved drainage. Placement re-confirmed via bladder ultrasound on 02/25. Status: Acute (5) Acute renal failure: Secondary to infection and obstruction and a component of prerenal after diuresis Status: Acute Qualifiers: Acute renal failure type: unspecified Qualified Code(s): N17.9 - Acute kidney failure, unspecified (6) Bilateral pneumonia: Recurrent aspiration pneumonia. May have had another aspiration event on 02/26 when family fed him a marshmallow. Has a history of trach and PEG tube placement in the past Status: Acute Qualifiers: Pneumonia type: due to unspecified organism Lung location: unspecified part of lung Qualified Code(s): J18.9 - Pneumonia, unspecified organism (7) SVT (supraventricular tachycardia): Has a history of frequent PVCs and is on chronic beta-blockade. With critical illness has had frequent SVT. Beta-blockade initially resumed at a l ower dose orally then transition to IV with clinical decline -Last episode of SVT was at last episode of SVT was early this morning, 1 minute run, no medication required Status: Acute (8) COPD (chronic obstructive pulmonary disease): Status: Chronic Qualifiers: COPD type: unspecified COPD Qualified Code(s): J44.9 - Chronic obstructive pulmonary disease, unspecified (9) BPH (benign prostatic hyperplasia): Status: Chronic Qualifiers: Lower urinary tract symptom presence: symptoms present Lower urinary tract symptom detail: urinary retention Qualified Code(s): N40.1 - Benign prostatic hyperplasia with lower urinary tract symptoms; R33.8 - Other retention of urine (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 (11) Acute and chronic respiratory failure: Status: Acute Additional A&P Information Echo 01/25/2021 with mild to moderate decrease in systolic function with elevated filling pressures, elevated BNP Elevated TSH, normal free T4, low free T3, total T3 pending, may be critical illness related not known hypothyroidism Mild increase in transaminases, resolved Intermittent hyperglycemia without history of diabetes Renal US on 02/26 with nonspecific linear echogenic structure lower pole right kidney >> had marked perinephric stranding in the right kidney at presentation on CT imaging Acute on chronic hypoxic respiratory failure from recurrent aspiration pneumoni a, on 15 L, BiPAP during the night, on antibiotic therapy, aspiration precautions, dysphagia diet, pulmonary on consult, flutter valve, incentive spirometer will require placement to select -Patient declines PEG -Patient and understand risks including intubation, mechanical ventilation, tracheostomy, bradycardia and mortality, voiced understanding, all questions answered - will come in to see if she can convince patient to place PEG N.p.o., transition to dysphagia diet Check repeat chest x-ray and ABG, currently on 15 L, BiPAP during the night, Dysphagia diet, aspiration precautions Incentive spirometer, flutter valve Currently declining PEG placement, high risk of intubation, high risk of trach placement Patient and voiced understanding, all questions answered, will come this afternoon to try to convince him to place PEG Working on placement to select Pulmonology following for assistance Given inability to take oral medications changed to IV metoprolol Continue Primaxin and vancomycin Follow-up pending cultures Has not required pressor support Continue IV fluids, serum sodium 146, creatinine 2.3 Continue to watch renal function and urinary output closely, maintain Madrigal catheter as it is chronic as well as necessary for critical illness currently With improvement in creatinine, will hold on nephrology consultation but continue to consider as appropriate Suspect will need some degree of diuresis at some point but appears dry currently Continue BiPAP support, monitor for need to intubate On scheduled duo nebs and budesonide, continue as needed albuterol Continue home finasteride, resume Flomax Monitor blood sugars for need to intervene Chronically on PPI Chronically on aspirin Subcu heparin for DVT prophylaxis Will need thyroid function studies rechecked in a few weeks Will require placement at select due to chronic respiratory failure related to aspiration pneumonia Urology is not available this week for consultation but patient should be evaluated for consideration of suprapubic catheter placement at some point given the recurrent migration of the Madrigal catheter into the prostate resulting in hospitalization in acute, even critical illness FULL code -confirmed today patient is a full code Attestations Medical Necessity Statement*: Patient requires hospitalization for sepsis secondary to pneumonia, pyelonephritis, acute on chronic respiratory failure related to aspiration pneumonia, dehydration, hypernatremia, CHARLA Coding Level of Care Code Acute [employer] for [facility] Fwd Diagnoses Sepsis A41.9; R65.21; N17.9 Acute renal failure type: unspecified Sepsis acute organ dysfunction status: with acute organ dysfunction Sepsis type: sepsis due to unspecified organism Severe sepsis acute organ dysfunction type: acute renal failure Severe sepsis shock status: with septic shock Acute pyelonephritis N10 Displacement of Madrigal catheter T83.021A Encounter type: initial encounter Urinary retention R33.9 Acute renal failure N17.9 Acute renal failure type: unspecified Bilateral pneumonia J18.9 Pneumonia type: due to unspecified organism Lung location: unspecified part of lung SVT (supraventricular tachycardia) I47.1 COPD (chronic obstructive pulmonary disease) J44.9 COPD type: unspecified COPD BPH (benign prostatic hyperplasia) N40.1; R33.8 Lower urinary tract symptom presence: symptoms present Lower urinary tract symptom detail: urinary retention Dementia of frontal lobe type G31.09; F02.80 Acute and chronic respiratory failure J96.20
--- NOTE | 2021-02-28 11:24 | PC.NURSE ---
Patient went into SVT at 0730, stayed in it for about 5 minutes and went back to normal sinus without any intervention. Patient has been having short episodes of asymptomatic SVT which resolve on their own shortly. Patient went into SVT again at 1100, but it did not resolve. Nurse alerted Dr young and received a 1 time order for Metoprolol. 5 mg IVP now.
[2021-02-28] MEDS: D5-NS 0.45% + KCL 20 mEq 20 MEQ/1,000 ML BAG 75 MEQ IV (12:29)
[2021-02-28 14:48] LABS: T3 Total 65 ng/dL (76-181)
[2021-02-28] MEDS: vancomycin 1,500 MG/300 ML PIGGYBACK 200 MG IV (15:13)
--- NOTE | 2021-02-28 15:50 | PM.TDS ---
Transfer Summary Providers Date of Admission: 02/24/21 11:45 Date of Discharge: 02/28/21 Attending Provider at Admission: Nixon Shah MD Attending Provider at Transfer: Yeyo Bhakta MD Primary Care Provider: Dominic Adams DO Anticipated Date of Transfer: Anticipated date of transfer: 02/28/21 Receiving Facility & Provider: Receiving Provider: [] Receiving facility: [] Diagnoses at Discharge Discharge Diagnosis (1) Sepsis: Status: Acute Qualifiers: Acute renal failure type: unspecified Sepsis acute organ dysfunction status: with acute organ dysfunction Sepsis type: sepsis due to unspecified organism Severe sepsis acute organ dysfunction type: acute renal failure Severe sepsis shock status: with septic shock Qualified Code(s): A41.9 - Sepsis, unspecified organism; R65.21 - Severe sepsis with septic shock; N17.9 - Acute kidney failure, unspecified (2) Acute pyelonephritis: Status: Acute (3) Displacement of Madrigal catheter: Status: Acute Permanent problem details: Recurrent Qualifiers: Encounter type: initial encounter Qualified Code(s): T83.021A - Displacement of indwelling urethral catheter, initial encounter (4) Urinary retention: Status: Acute (5) Acute renal failure: Status: Acute Qualifiers: Acute renal failure type: unspecified Qualified Code(s): N17.9 - Acute kidney failure, unspecified (6) Bilateral pneumonia: Status: Acute Qualifiers: Pneumonia type: due to unspecified organism Lung location: unspecified part of lung Qualified Code(s): J18.9 - Pneumonia, unspecified organism (7) SVT (supraventricular tachycardia): Status: Acute (8) COPD (chronic obstructive pulmonary disease): Status: Chronic Qualifiers: COPD type: unspecified COPD Qualified Code(s): J44.9 - Chronic obstructive pulmonary disease, unspecified (9) BPH (benign prostatic hyperplasia): Status: Chronic Qualifiers: Lower urinary tract symptom presence: symptoms present Lower urinary tract symptom detail: urinary retention Qualified Code(s): N40.1 - Benign prostatic hyperplasia with lower urinary tract symptoms; R33.8 - Other retention of urine (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 Patient was admitted to [facility] for acute hypoxic respiratory failure, sepsis secondary to pyelonephritis, cystitis, and recurrent aspiration with acute renal failure. Patient received broad-spectrum antibiotic therapy, managed with oxygen therapy, as needed BiPAP, pulmonary was consulted, patient clinically stabilized, mentation improved, back to baseline, but high oxygen requirements remain due to chronic aspiration. All cultures so far have been unremarkable, currently on heated high flow 50 L, 60% FiO2, will be transferred to [facility] due to current acute on chronic respiratory failure secondary to aspiration pneumonia please look in details below below for specifics Sepsis: Etiology at admission consistent with cystitis and pyelonephritis and recurrent aspiration pneumonia. Chest x-ray at admission demonstrated possibility of pneumonia on the left. He has had further consolidation since admission bilaterally with the left lung more involved than the right. Has continued to maintain blood pressures. Has associated acute encephalopathy, fever, leukocytosis, tachycardia, acute renal failure. Acute pyelonephritis: In a patient with chronic Madrigal catheter and recurrent displacement of Madrigal into the prostate Displacement of Madrigal catheter: This is now a recurrent problem, with second episode of Madrigal catheter bulb migrating into the prostate and causing acute urinary retention/obstruction. Consideration may need to be given to suprapubic catheter placement at some point. Hydroureteronephrosis has resolved per renal ultrasound last evening Urinary retention: Urinary catheter repositioned in the emergency department with subsequent improved drainage. Placement re-confirmed via bladder ultrasound on 02/25. Acute renal failure: Secondary to infection and obstruction and a component of prerenal after diuresis Bilateral pneumonia: Recurrent aspiration pneumonia. May have had another aspiration event on 02/26 when family fed him a marshmallow. Has a history of trach and PEG tube placement in the past Status: Acute SVT (supraventricular tachycardia): -Secondary to acute on chronic respiratory failure Has a history of frequent PVCs and is on chronic beta-blockade. With critical illness has had frequent SVT. Beta-blockade initially resumed at a lower dose orally then transition to IV with clinical decline -Last episode of SVT was at last episode of SVT was early this morning, 1 minute run, no medication required -Transferred on Metroprolol 25 twice daily, might require 5 mg IV metoprolol pushes as needed COPD (chronic obstructive pulmonary disease): BPH (benign prostatic hyperplasia): Dementia of frontal lobe type: Acute and chronic respiratory failure: Echo 01/25/2021 with mild to moderate decrease in systolic function with elevated filling pressures, elevated BNP Diuresed as inpatient, -3 L, looks dehydrated, sodium up to 146, was placed on gentle IV hydration D5 half-normal saline at 75 cc an hour Elevated TSH, normal free T4, low free T3, total T3 pending, may be critical illness related not known hypothyroidism Mild increase in transaminases, resolved Intermittent hyperglycemia without history of diabetes Renal US on 02/26 with nonspecific linear echogenic structure lower pole right kidney >> had marked perinephric stranding in the right kidney at presentation on CT imaging Acute on chronic hypoxic respiratory failure from recurrent aspiration pneumonia, on 50 L BiPAP during the night, on antibiotic therapy, aspiration precautions, dysphagia diet, pulmonary on consult, flutter valve, incentive spirometer will require placement to [facility] -Patient declines PEG -Agreed built intubation, agreeable to tracheostomy if required -Patient and understand risks including intubation, mechanical ventilation, morbidity and mortality associated, voiced understanding, all questions answered Currently on dysphagia diet Check repeat chest x-ray and ABG, Dysphagia diet, aspiration precautions Incentive spirometer, flutter valve Currently declining PEG placement, high risk of intubation, high risk of trach placement Patient and voiced understanding, all questions answere Pulmonology following for assistance Continue Primaxin and vancomycin Follow-up pending cultures Has not required pressor support Continue IV fluids, serum sodium 146, creatinine 2.3 Continue to watch renal function and urinary output closely, maintain Madrigal catheter as it is chronic as well as necessary for critical illness currently With improvement in creatinine, will hold on nephrology consultation but continue to consider as appropriate Suspect will need some degree of diuresis at some point but appears dry currently Continue BiPAP support, monitor for need to intubate On scheduled duo nebs and budesonide, continue as needed albuterol Continue home finasteride, resume Flomax Monitor blood sugars for need to intervene Chronically on PPI Chronically on aspirin Subcu heparin for DVT prophylaxis Will need thyroid function studies rechecked in a few weeks Will require placement at [facility] due to chronic respiratory failure related to aspiration pneumonia Urology is not available this week for consultation but patient should be evaluated for consideration of suprapubic catheter placement at some point given the recurrent migration of the Madrigal catheter into the prostate resulting in hospitalization in acute, even critical illness FULL code -confirmed today patient is a full code Physical Exam Const: COMMON NORMALS: no acute distress ORIENTATION/CONSCIOUSNESS: Yes awake, Yes oriented to person, Yes oriented to place and Yes oriented to time Resp: COMMON NORMALS: normal respiratory effort AUSCULTATION: crackles and wheezes Cardio: COMMON NORMALS: regular rate, regular rhythm, S1 normal heart sound present and S2 normal heart sound present RATE: regular rate RHYTHM: regular rhythm HEART SOUNDS: S1 normal heart sound present and S2 normal heart sound present GI: COMMON NORMALS: Normal to inspection, nondistended, normoactive bowel sounds present, Soft to palpation, non-tender and No hepatosplenomegaly present PALPATION: Yes Soft to palpation and Yes No hepatosplenomegaly present Extremity: COMMON NORMALS: no pedal edema Neuro: SENSORIUM/ORIENTATION: Yes oriented to person, Yes oriented to place and Yes oriented to time Urinary Catheter Management^: Madrigal: Cath Placed During This Visit: no Reason for Continuing Indwelling Catheter: Chronic Indwelling Urinary Catheter on Admission TS Data Data Completed and Pending: Completed Studies During Hospitalization Category Date Time Status CT abdomen pelvis w con* [id number] Urge nt Cat Scan 02/24/21 09:29 Completed CXRP [XR chest 1V portable [id number]] R outine Exams 02/26/21 19:31 Completed CXRP [XR chest 1V portable [id number]] S tat Exams 02/25/21 16:56 Completed XR abdomen 1V* [id number] Routine Exams 02/26/21 19:57 Completed XR chest 1V niles ble [id number] Routine Exams 02/27/21 08:38 Completed XR chest 1V niles ble [id number] Routine Exams 02/28/21 10:36 Completed XR chest 1V niles ble [id number] Urgent Exams 02/24/21 09:29 [place] [id number] Routin e Ultrasound 02/26/21 09:35 Completed US bladder 18050 Stat Ultrasound 02/25/21 17:40 Completed US renal BI* [id number] Routine Ultrasound 02/27/21 19:35 Completed Pending at discharge Category Date Time Status Arterial Blood Ga s W/O Coox AM LABS Lab 03/01/21 04:00 Ordered Arterial Blood Ga s W/O Coox AM LABS Lab 03/02/21 04:00 Ordered Arterial Blood Ga s W/O Coox AM LABS Lab 03/03/21 04:00 Ordered Blood Culture Sta t Lab 02/24/21 10:06 Results Blood Culture Sta t Lab 02/25/21 09:24 Results C Reactive Protei n AM LABS Lab 03/01/21 04:00 Ordered C Reactive Protei n AM LABS Lab 03/02/21 04:00 Ordered C Reactive Protei n AM LABS Lab 03/03/21 04:00 Ordered Complete Blood Co unt w/Auto AM LABS Lab 03/01/21 04:00 Ordered Complete Blood Co unt w/Auto AM LABS Lab 03/02/21 04:00 Ordered Complete Blood Co unt w/Auto AM LABS Lab 03/03/21 04:00 Ordered Comprehensive Met abolic Panel AM LA BS Lab 03/01/21 04:00 Ordered Comprehensive Met abolic Panel AM LA BS Lab 03/02/21 04:00 Ordered Comprehensive Met abolic Panel AM LA BS Lab 03/03/21 04:00 Ordered Lactate (Lactic A so level) AM LABS Lab 03/01/21 04:00 Ordered Lactate (Lactic A so level) AM LABS Lab 03/02/21 04:00 Ordered Lactate (Lactic A so level) AM LABS Lab 03/03/21 04:00 Ordered MRSA by PCR Stat Lab 02/28/21 13:00 Received Magnesium AM LABS Lab 03/01/21 04:00 Ordered Magnesium AM LABS Lab 03/02/21 04:00 Ordered Magnesium AM LABS Lab 03/03/21 04:00 Ordered NT Pro B Type Anna riuretic Pept QAM Lab 03/01/21 06:00 Ordered NT Pro B Type Anna riuretic Pept QAM Lab 03/02/21 06:00 Ordered NT Pro B Type Anna riuretic Pept QAM Lab 03/03/21 06:00 Ordered Phosphorus AM LAB S Lab 03/01/21 04:00 Ordered Phosphorus AM LAB S Lab 03/02/21 04:00 Ordered Phosphorus AM LAB S Lab 03/03/21 04:00 Ordered Procalcitonin AM LABS Lab 03/01/21 04:00 Ordered Procalcitonin AM LABS Lab 03/02/21 04:00 Ordered Procalcitonin AM LABS Lab 03/03/21 04:00 Ordered Sputum Culture an d Gram Stain Routi ne Lab 02/26/21 10:15 Results Vancomycin Trough Timed Lab 03/02/21 15:00 Ordered Labs from last 24 hours 02/28/21 02/26/21 03:21 20:43 Sodium 146 H Potassium 4.0 Chloride 113 H Carbon Dioxide 20 L Anion Gap 17.0 BUN 74 H Creatinine 2.3 H GFR Calculation Not Reportable Glucose 130 H Calculated Osmolal ity 326 H Uric Acid 9.8 H Calcium 8.1 L Phosphorus 3.6 Magnesium 2.2 Total Bilirubin 0.5 AST 16 ALT 19 Alkaline Phosphata se 123 Total Protein 5.8 L Albumin 2.4 L Globulin 3.4 Procalcitonin 4.27 H Total T3 65 L Vitals: Last Vital Signs Temp 98.9 F 02/28/21 13:00 Pulse 99 02/28/21 14:00 Resp 31 H 02/28/21 14:00 BP 156/86 02/28/21 14:00 Pulse Ox 88 L 02/28/21 14:00 TS Medications Medications Home Medications acetaminophen 325 mg capsule 650 mg PO Q4H PRN cap 11/27/19 [History Confirmed 02/24/21] finasteride 5 mg tablet 5 mg PO DAILY@20 tab 11/27/19 [History Confirmed 02/24/21] omeprazole 20 mg tablet,delayed release 20 mg PO DAILY@11/27/19 [History Confirmed 02/24/21] bisacodyl 10 mg rectal suppository 10 mg SD DAILY PRN 03/01/20 [History Confirmed 02/24/21] magnesium hydroxide 400 mg/5 mL oral suspension 30 ml PO DAILY PRN ml 03/01/20 [History Confirmed 02/24/21] Enema Disposable 118 ml SD DAILY PRN 12/08/20 [History Confirmed 02/24/21] [place] Cough Drops 7.6 mg MUCOUS MEMBRANE Q2H PRN 12/08/20 [History Confirmed 02/24/21] calcium carbonate [Tums] 1,000 mg PO QID PRN 12/08/20 [History Confirmed 02/24/21] polyvinyl alcohol 3 drp OPHTHALMIC (EYE) QID PRN 12/08/20 [History Confirmed 02/24/21] aspirin 81 mg PO DAILY@08 01/26/21 [History Confirmed 02/24/21] sennosides-docusate sodium [Stool Softener-Laxative] 1 tab PO DAILY #30 tab 01/29/21 [Rx Confirmed 02/24/21] tamsulosin [Flomax] 0.4 mg PO BID #60 cap 01/30/21 [Rx Confirmed 02/24/21] metoprolol succinate 25 mg tablet,extended release 24 hr 12.5 mg PO DAILY #15 tab 02/22/21 [Rx Confirmed 02/24/21] Active Medications Acetaminophen (Acetaminophen 325 Mg Tablet) 650 mg PO Q6H PRN PRN Reason: MILD PAIN Last Admin: 02/26/21 03:12 Dose: 650 mg Documented by: Albuterol Sulfate (Albuterol 2.5 Mg/0.5 Ml Neb) 2.5 mg INHALATION Q6H.RESPIRATORY PRN PRN Reason: SHORTNESS OF BREATH Albuterol/Ipratropium (Ipratropium-Albuterol 3 Ml Neb) 3 ml INHALATION Q6H.RESPIRATORY TD Last Admin: 02/28/21 08:41 Dose: 3 ml Documented by: Aspirin (Aspirin 81 Mg Ec Tablet) 81 mg PO DAILY@08 [facility] Last Admin: 02/28/21 07:25 Dose: Not Given Documented by: Bisacodyl (Bisacodyl 10 Mg Supp) 10 mg SD DAILY PRN PRN Reason: Constipation Budesonide (Budesonide 0.5 Mg/2 Ml Neb) 0.5 mg INHALATION BID.RESPIRATORY TD Last Admin: 02/28/21 08:41 Dose: 0.5 mg Documented by: Calcium Carbonate (Calcium Carbonate 500 Mg Chew Tablet) 500 mg PO Q4H PRN PRN Reason: INDIGESTION Finasteride (Finasteride 5 Mg Tablet) 5 mg PO DAILY@20 [facility] Last Admin: 02/27/21 21:47 Dose: Not Given Documented by: Heparin Sodium (Beef Lung) (Heparin 5,000 Unit/Ml Inj 1 Ml) 5,000 unit SUBCUT Q12H TD Last Admin: 02/28/21 15:20 Dose: 5,000 unit Documented by: Imipenem/Cilastatin Sodium 250 (mg/ Sodium Chloride) 100 mls @ 200 mls/hr IV Q6H TD; Protocol Last Admin: 02/28/21 15:09 Dose: 200 mls/hr Documented by: Vancomycin/PEG/NADA/Lysine/Water (Vancocin) 1,500 mg in 300 mls @ 200 mls/hr IV Q24H [facility] Last Admin: 02/28/21 15:13 Dose: 200 mls/hr Documented by: Potassium Chloride/Dextrose/Sod Cl (D5-Ns 0.45% + Kcl 20 Meq) 20 meq in 1,000 mls @ 75 mls/hr IV .[id number] [facility] Last Admin: 02/28/21 12:29 Dose: 75 mls/hr Documented by: Metoprolol Tartrate (Metoprolol Tartrate 25 Mg Tablet) 25 mg PO Q12H [facility] Ondansetron HCl (Ondansetron 2 Mg/Ml Sdv 2 Ml) 4 mg IVP Q6H PRN PRN Reason: NAUSEA AND VOMITING Last Admin: 02/25/21 12:53 Dose: 4 mg Documented by: Pantoprazole Sodium (Pantoprazole Dr 40 Mg Tablet) 40 mg PO DAILY [facility] Last Admin: 02/28/21 08:32 Dose: Not Given Documented by: Senna/Docusate Sodium (Sennosides-Docusate Tablet) 1 tab PO DAILY [facility] Last Admin: 02/28/21 08:32 Dose: Not Given Documented by: Tamsulosin HCl (Tamsulosin 0.4 Mg Capsule) 0.4 mg PO BID [facility] Last Admin: 02/28/21 08:32 Dose: Not Given Documented by: Discharge Plan Discharge Patient Disposition: Home Condition: Stable Prescriptions: No Action omeprazole 20 mg tablet,delayed release (DR/EC) 20 mg PO DAILY@05 RF: 0 acetaminophen 325 mg capsule 650 mg PO Q4H PRN (Reason: PAIN/FEVER) RF: 0 finasteride 5 mg tablet 5 mg PO DAILY@20 RF: 0 bisacodyl 10 mg suppository 10 mg SD DAILY PRN (Reason: Constipation) RF: 0 magnesium hydroxide [Milk of Magnesia] 400 mg/5 mL suspension 30 ml PO DAILY PRN (Reason: Constipation) RF: 0 metoprolol succinate 25 mg tablet extended release 24 hr 12.5 mg PO DAILY Qty: 15 RF: 3 polyvinyl alcohol 1.4 % Drops 3 drp ophthalmic (eye) QID PRN (Reason: Dry Eyes) RF: 0 [place] Cough Drops 7.6 mg Lozenge 7.6 mg MUCOUS MEMBRANE Q2H PRN (Reason: Cough) RF: 0 calcium carbonate [Tums] 200 mg calcium (500 mg) Tablet,Chewable 1,000 mg PO QID PRN (Reason: Indigestion) RF: 0 Enema Disposable 19-7 gram/118 mL Enema 118 ml SD DAILY PRN (Reason: Constipation) RF: 0 aspirin 81 mg Tablet,Delayed Release (Dr/Ec) 81 mg PO DAILY@08 RF: 0 sennosides-docusate sodium [Stool Softener-Laxative] 8.6-50 mg Tablet 1 tab PO DAILY Qty: 30 RF: 0 tamsulosin [Flomax] 0.4 mg capsule 0.4 mg PO BID Qty: 60 RF: 0 Discharge Orders: Transfer Out of Facility (Order); Ordered 02/28/21 Ordered By: Yeyo Bhakta Referrals: Dominic Adams DO [Primary Care Provider] - Patient Instructions: Opioid Safety Transfer Attestations Time Spent in Transfer Care*: greater than 30 min Status at Transfer: Cognitive status at transfer: cognitively intact, Behavioral status at transfer: cooperative, Quality Metrics Clinical Quality Measures: During this hospital stay, did patient experience: None Coding Level of Care Code Acute Polysomnographer for g Fwd Diagnoses Sepsis A41.9; R65.21; N17.9 Acute renal failure type: unspecified Sepsis acute organ dysfunction status: with acute organ dysfunction Sepsis type: sepsis due to unspecified organism Severe sepsis acute organ dysfunction type: acute renal failure Severe sepsis shock status: with septic shock Acute pyelonephritis N10 Displacement of Madrigal catheter T83.021A Encounter type: initial encounter Urinary retention R33.9 Acute renal failure N17.9 Acute renal failure type: unspecified Bilateral pneumonia J18.9 Pneumonia type: due to unspecified organism Lung location: unspecified part of lung SVT (supraventricular tachycardia) I47.1 COPD (chronic obstructive pulmonary disease) J44.9 COPD type: unspecified COPD BPH (benign prostatic hyperplasia) N40.1; R33.8 Lower urinary tract symptom presence: symptoms present Lower urinary tract symptom detail: urinary retention Dementia of frontal lobe type G31.09; F02.80 Acute and chronic respiratory failure J96.20
--- NOTE | 2021-02-28 16:07 | PM.PN ---
Subjective Subjective: Interval history: -No significant change in clinical status -Mr. Contreras is on BiPAP overnight -ABG on BiPAP 16/ 40% FiO2 showed 7.4 34//20 2/84% saturation -Alert, drowsy, tries to communicate but appeared weak and tired -Could not tolerate nasal cannula 2 L and was placed on high flow 15 L and later again put back on 15 L -Patient is chronically bedridden and weak secondary to Lewy body dementia and Parkinson's, -At high risk for intubation and patient expressed wishes to be intubated if his respiration fails -Previously had a tracheostomy and PEG for chronic aspiration, but denied PEG tube placement and wants to refused PEG tube wants to eat - Also at high risk for aspiration-and he understands the risk of having aspiration and related complications -On dysphagia pur?ed diet and feed with aspiration precautions -Still goes into intermittent PSVT -Labs and imaging reviewed Medications: Reviewed: Yes Vitals/I&O/Wt Last Vital Signs Temp 98.9 F 02/28/21 13:00 Pulse 99 02/28/21 14:00 Resp 31 H 02/28/21 14:00 BP 156/86 02/28/21 14:00 Pulse Ox 88 L 02/28/21 14:00 02/28/21 02/28/21 02/28/21 06:59 14:59 22:59 Intake Total 100 / 2120 1100 / 1100 Output Total 1600 / 4626 1750 / 1750 Balance -1500 / -2506 -650 / -650 Weight last 48 hrs Weight 200 lb 4.8 oz Weight 197 lb 6.4 oz Physical Exam Narrative: EXAM NARRATIVE: General: alert, appears weak-NAD on BiPAP saturating 91% HEENT: conj clear, EOMI, PERRL, mmm, Neck: supple, no meningismus Heme: no cervical LAP Pulmonary: CTAB, no wheezing, rhonchi, crackles Cardiovascular: rrr, nl s1s2, no mrg Abdomen: soft, appears distended, nt, nd, no r/g, bs+ Extremities: pulses +, no edema, no c/c : no CVA tenderness Skin: intact, no rash MSK: no back or neck pain Neurologic: grossly intact Urinary Catheter Management^: Madrigal: Cath Placed During This Visit: no Reason for Continuing Indwelling Catheter: Chronic Indwelling Urinary Catheter on Admission Data : 02/27/21 03:55 02/28/21 03:21 A&P Assessment and plan (1) Bilateral pneumonia: Status: Acute Qualifiers: Pneumonia type: due to unspecified organism Lung location: unspecified part of lung Qualified Code(s): J18.9 - Pneumonia, unspecified organism (2) Acute pyelonephritis: Status: Acute (3) Acute renal failure: Status: Acute Qualifiers: Acute renal failure type: unspecified Qualified Code(s): N17.9 - Acute kidney failure, unspecified (4) Displacement of Madrigal catheter: Status: Acute Qualifiers: Encounter type: initial encounter Qualified Code(s): T83.021A - Displacement of indwelling urethral catheter, initial encounter (5) BPH (benign prostatic hyperplasia): Status: Chronic Qualifiers: Lower urinary tract symptom presence: symptoms present Lower urinary tract symptom detail: urinary retention Qualified Code(s): N40.1 - Benign prostatic hyperplasia with lower urinary tract symptoms; R33.8 - Other retention of urine (6) COPD (chronic obstructive pulmonary disease): Status: Chronic Qualifiers: COPD type: unspecified COPD Qualified Code(s): J44.9 - Chronic obstructive pulmonary disease, unspecified (7) Diastolic heart failure of unknown etiology: Status: Chronic (8) AMS (altered mental status): Status: Acute Qualifiers: Altered mental status type: unspecified Qualified Code(s): R41.82 - Altered mental status, unspecified Assessment and plan and recommendations: #AMS and CHARLA secondary to sepsis secondary to Suspect bilateral pyelonephritis underlying Lewy body dementia #Suspect bilateral pyelonephritis and bilateral hydroureteronephrosis due to dislodged catheter; #Sepsis secondary to E. coli urosepsis and left lower lobe pneumonia #urine culture positive for MDR E. coli sensitive to imipenem #Chest [id number] infiltrates left greater > right; suspect pneumonitis-high risk for aspiration #mild to moderately decreased LV function and grade 3/4 diastolic dysfunction on echo 01/25/2021 #Hypoxia-secondary to fluid vs pneumonitis vs??? PE(high risk for PE due to immobilization) #COPD #Intermittent SVT -Currently on imipenem for E. coli urosepsis based on sensitivity with and vancomycin for previous history of staph evidences (to DC if MRSA nares and final blood cultures negative) -Chest x-ray today worsening left lower lobe infiltrates-covered with imipenem and vancomycin -Sputum endotracheal aspirate-preliminary culture showed yeast-identification pending -After catheterization and s/p Lasix 2 doses, very good urine output about 100 cc/h -I/O/N-2.1 L/4.6 L / -2.5 L in last 24 hours, since admission 12 L/17 L / -4.5 L -Finasteride 5 mg p.o. daily and Flomax 0.4 p.o. twice daily -Improving mentation, lactic acid and renal functions -Sodium today 146-recommended to switch NS to D5 NS at 75 ml/ hour -Intermittent SVT-secondary to sepsis and fluid deficiency-electrolytes are within normal limits -Currently on metoprolol 5 mg IV every 4 scheduled -Bedside ultrasound on 02/27/2021 showed collapsed IVC and Cheetah assessment showed patient is volume deficient-given 500 cc bolus and currently IV hydration at 75 cc/h. -Given patient recent echo 01/25/2021 with mild to moderately decreased LV function and grade 3/4 diastolic dysfunction-closely monitor input output and signs of edema -try to keep patient slight negative to net even -Patient previously had strict intake for chronic aspiration and currently is at high risk for aspiration due to chronic underlying Lewy body dementia and deconditioning and he is aware of possible complications associated with aspiration but still refused PEG tube/NG tube and wants to eat.-recommended aspiration precautions and feeding with assistance, already on imipenem for anaerobic coverage -Hypoxia can be secondary to bilateral infiltrates due to pneumonitis vs fluid; although patient is at high risk for PE due to immobilization-bedside ultrasound did not show any bilateral DVT; and a gradient and ABG is normal; CT angiogram with PE protocol could not be obtained due to renal function. -Currently on BiPAP at night 30/05 40% FiO2: 7.4 /92/20 2/92%- -Currently covered with prophylactic heparin 5000 every 12-hour SC; if patient hypoxia worsens-we will go ahead and switch to full dose anticoagulation and do CTA once renal functions normalize to rule out PE -on DuoNeb nebulization every 6 scheduled and budesonide 0.5 twice daily nebulizations for COPD Patient is at high risk for intubation due to his overall deconditioning and underlying dementia with ongoing pneumonia and CHF. Patient expressed wishes to be intubated during last admission. If he gets intubated-it will be a very difficult extubation considering his overall deconditioned state and underlying dementia and would need trach and PEG. Recommendation was discussed with hospitalist and RN covering the patient Attestations Medical Necessity Statement*: Patient requires hospitalization for sepsis secondary to pneumonia, pyelonephritis, acute on chronic respiratory failure related to aspiration pneumonia, dehydration, hypernatremia, CHARLA Time Spent in Patient Care: Greater than 35 minutes (>than 50% of time spent in counselling and/or direct pt care on unit). Critical Care Time: The high probability of a clinically significant, sudden or life threatening deterioration of the patient's respiratory, cardiac, neurological, renal system(s) required my full and direct attention, intervention and personal management. The critical care time is as shown. This time is in addition to time spent performing any reported procedures but includes the following: [x] Data and vital sign review and interpretation [x] Patient assessment, examination and intervention [x] Documentation [x] Medication orders and management Critical Care Time (min): 45 Coding Level of Care Code Established Pt Acute Budget Coordinator for Chg Fwd Patient Type Established History Comprehensive Exam Comprehensive Medical Decision Making High Complexity Diagnoses Bilateral pneumonia J18.9 Pneumonia type: due to unspecified organism Lung location: unspecified part of lung Acute pyelonephritis N10 Acute renal failure N17.9 Acute renal failure type: unspecified Displacement of Madrigal catheter T83.021A Encounter type: initial encounter BPH (benign prostatic hyperplasia) N40.1; R33.8 Lower urinary tract symptom presence: symptoms present Lower urinary tract symptom detail: urinary retention COPD (chronic obstructive pulmonary disease) J44.9 COPD type: unspecified COPD Diastolic heart failure of unknown etiology I50.30 AMS (altered mental status) R41.82 Altered mental status type: unspecified Time Spent (min) 45
[2021-02-28] MEDS: metoprolol tartrate 25 mg Tablet PO (16:18)
--- NOTE | 2021-02-28 17:05 | PC.NURSE ---
REceived transfer orders for [facility] [place]. Gave report to Carito MANRIQUEZ at [phone]. SHortly after calling report, Nurse got a call back from edna with [facility]. THey cannot accept patient on current oxygen levels of 50L 60%. Cannot make transport. nurse alerted Dr young.
--- NOTE | 2021-02-28 19:23 | PC.NURSE ---
Shift SUmmary: Uneventful shift. Patient went for barium swallow, had a bedside ultrasound of legs, and had dialysis. Vitals remained within normal limits throughout the day except tachycardia which developed towards the end of Dialysis. Dialysis was stopped and the tachycardia resolved. 2600 mL removed during dialysis. Pt currently awaiting transfer to [facility].
--- NOTE | 2021-02-28 19:29 | PC.NURSE ---
Was advised by Dr Bhakta to get an intubation kit ready. Will intubate patient to stabilize for [facility] to [facility]. Nurse pulled propofol, etomidate, and rocuronium. currently awaiting RT and Dr Man.
--- NOTE | 2021-02-28 19:31 | PC.NURSE ---
Disregard plans to intubate. Patient then placed on bipad. Intubation meds returned to the [facility].
[2021-02-28] MEDS: finasteride 5 mg Tablet PO (20:41)
[2021-02-28] MEDS: metoprolol tartrate 1 mg/1 mL SDV 5 mL 5 MG (22:23)
[2021-03-01] VITALS (17 sets, daily range): BP systolic 152–172; BP diastolic 77–93; PULSE 72–169; RESP 12–32; TEMP 37.1–37.2; O2SAT 89–100; BMI 26.2
[2021-03-01] MEDS: metoprolol tartrate 25 mg Tablet PO (03:38)
[2021-03-01] MEDS: heparin 5,000 unit/mL INJ 1 mL 5000 UNIT SUBCUT (03:38)
[2021-03-01] MEDS: metoprolol tartrate 1 mg/1 mL SDV 5 mL 5 MG IV (03:38)
[2021-03-01 04:59] LABS: ABG PCO2 35.8 mmHg (35-45); ABG PH Result 7.41 (7.35-7.45); Arterial Blood Gas Hematocrit 39.4 % (42-52); Base Excess ABG -1.3 mmol/L (-2.0-2.0); Blood Gas Sample Site Brachial, right; Blood Gas Sample Type Arterial; HCO3 ABG 22.9 mmol/L (22-26); Oxygen Device BIPAP
[2021-03-01 06:14] LABS: Basophils # 0.1 10^3/uL (0.0-0.1); Basophils % 0.3 %; Eosinophils # 0.1 10^3/uL (0.0-0.8); Eosinophils % 0.8 %; Hematocrit 42.3 % (42.0-52.0); Hemoglobin 12.1 g/dL (11.7-16.6); Lymphocytes # 0.9 10^3/uL (0.8-4.8); Lymphocytes % 6.1 %; Mean Corpuscular HGB Conc 28.6 g/dL (30.0-36.0); Mean Corpuscular Hemoglobin 25.6 pg (28.0-34.0); Mean Corpuscular Volume 89.4 fL (80-94); Mean Platelet Volume 13.3 fL (7.4-10.4); Neutrophils # 12.04 10^3/uL (1.8-7.7); Neutrophils % 84.3 %; Nucleated Red Blood Cells % 0 %; Platelet Count 153 10^3/cmm (130-400); Red Blood Count 4.73 10^6/uL (4.1-5.3); Red Cell Distribution Width 18.8 % (12.1-15.1); White Blood Count 14.3 10^3/uL (4.0-10.0)
[2021-03-01 06:46] LABS: Lactate (Lactic Acid level) 2.6 mmol/L (0.5-2.2)
--- NOTE | 2021-03-01 08:38 | PC.NURSE ---
Assumed care from primary nurse, Sugar MANRIQUEZ.
[2021-03-01] MEDS: budesonide 0.5 mg/2 mL Neb INHALATION (08:56)
[2021-03-01] MEDS: ipratropium-albuterol 3 mL Neb INHALATION (08:56)
--- NOTE | 2021-03-01 09:21 | PC.CHAP ---
Pastoral Care Encounter/Spiritual Assessment Type of Contact [] Declined open claims representative visit [] Patient/Family/Request visit [] Outpatient visit [] Follow-up visit [] Physician referral [] Code/Alert [x] Routine visit [] Staff referral [] Actively dying [] Patient sleeping [] Family support [] [] Out of room [] Palliative care [] [] Receiving care in room [] Pre-surgical visit [] Trauma [] Long length of stay [x] ICU visit [x] Other: ventilator Relational/Emotional Strength [] Patient feels connected with others/family/visitors/staff [] Distress [] Loneliness/isolation [] Abandonment Spirituality of Patient [] Person of Luz [] Attends Yarsani of their Luz [] Believes in Prayer [] Reads Bible or Restorationism materials [] There are Spiritual issues to be addressed Flux Mixer Interventions [x] Prayer [] Active listening [] Non-anxious presence [] Spiritual/emotional support [] Crisis/trauma care [] Spiritual counseling [] Bereavement support [] Provided bereavement packet [] Provided Bible/devotional materials [] Provided toy/stuffed animal, coloring book to patient or family member [] Provided Communion [] Anointing/[place] [] Salvation [x] Completed spiritual assessment [] Other: Impact on Illness or Injury [] Angry [] Fearful [] Anxious [] Often cries [] Exhaustion [] Unable to work [] Unable to attend gnosticism [] Unable to walk/stand [] Unable to read [] Unable to drive [] Unable to eat/drink [] Unable to sleep [] Unable to be with family [] Patient intubated [] Other: Summary Time spent with patient
[2021-03-01 09:46] LABS: Alanine Aminotransferase 12 U/L (0-41); Albumin Level 2.6 g/dL (3.5-5.2); Alkaline Phosphatase 134 IU/L (40-130); Aspartate Amino Transferase 17 U/L (0-40); Blood Urea Nitrogen 56 mg/dL (8-23); C Reactive Protein 249.9 mg/L (0.0-4.9); Calcium 8.2 mg/dL (8.5-10.5); Carbon Dioxide 24 mmol/L (22-29); Chloride 117 mmol/L (98-107); Globulin 3.5 g/dL (1.3-4.6); Glucose 117 mg/dL (65-115); Osmolality Calculated 331 mOsm/kg (285-295); Sodium 152 mmol/L (136-145); Total Bilirubin 0.7 mg/dL (0.15-1.2); Total Protein 6.1 g/dL (6.6-8.7)
[2021-03-01 09:48] LABS: Anion Gap 15.2 (5-19); Potassium 4.2 mmol/L (3.5-5.1)
[2021-03-01 09:52] LABS: NT Pro B Type Natriuretic Pept 2948 pg/mL (0-450); Procalcitonin 2.09 ng/mL (0-0.5)
--- NOTE | 2021-03-01 10:17 | PC.NURSE ---
Report called to Carito Frye RN at [facility]
--- NOTE | 2021-03-01 11:23 | PC.NURSE ---
report given to Jaime Olivarez EMT-P. Assisted in loading pt onto cot.
--- NOTE | 2021-03-03 08:45 | PC.SOCIAL ---
MRSA nasal screen positive results called to this nurse from [facility] in [place] yesterday. Called [facility] this am and spoke to Yara to review the result. Faxed results per request to number provided [phone] with confirmation that fax was sent successfully. Yara indicates will give to nurse to have reviewed with attending.
== END 2021-03-01 11:25 | DRG 871 ==
LOC: ER 11:04 → ICU 12:46
PROVIDERS: Hospitalist; Internal Medicine; Physician Assistant; Admitting Provider Internal Medicine; Emergency Provider Family Medicine; PCP Internal Medicine; Visit Provider Family Medicine
DX: A41.9 Sepsis, unspecified organism (principal); R65.21 Severe sepsis with septic shock; J69.0 Pneumonitis due to inhalation of food and vomit; G93.41 Metabolic encephalopathy; J96.21 Acute and chronic respiratory failure with hypoxia; E87.2 Acidosis; J44.0 Chronic obstructive pulmonary disease with (acute) lower respiratory infection; N30.00 Acute cystitis without hematuria; N10 Acute pyelonephritis; N17.9 Acute kidney failure, unspecified; I47.1 Supraventricular tachycardia; I50.32 Chronic diastolic (congestive) heart failure; Z87.440 Personal history of urinary (tract) infections; N40.1 Benign prostatic hyperplasia with lower urinary tract symptoms; R33.8 Other retention of urine; G31.83 Neurocognitive disorder with Lewy bodies; F02.80 Dementia in other diseases classified elsewhere, unspecified severity, without behavioral disturbance, psychotic disturbance, mood disturbance, and anxiety; M19.90 Unspecified osteoarthritis, unspecified site; K21.9 Gastro-esophageal reflux disease without esophagitis; Z86.16 Personal history of COVID-19; F32.5 Major depressive disorder, single episode, in full remission; T83.021A Displacement of indwelling urethral catheter, initial encounter; B96.20 Unspecified Escherichia coli [E. coli] as the cause of diseases classified elsewhere; Y73.1 Therapeutic (nonsurgical) and rehabilitative gastroenterology and urology devices associated with adverse incidents
CPT/HCPCS: 36415; 36600; 71045; 74018; 74177; 76770; 76857; 80048; 80051; 80053; 80202; 81001; 82140; 82274; 82330; 82550; 82803; 82805; 83605; 83630; 83690; 83735; 83880; 84100; 84145; 84439; 84443; 84480; 84481; 84550; 85007; 85025; 86140; 86403; 87040; 87070; 87077; 87086; 87106; 87186; 87205; 87493; 87506; 87641; 92526; 92610; 93005; 93970; 94640; 94660; 94664; 96365; 96367; 96372; 97110; 97162; 97530; 99285; J0696; J0743; J1644; J1940; J1956; J2060; J2405; J3370; J3475; J3490; J7030; J7040; J7050; J7626; Q9967; S0030

== ENCOUNTER 2021-07-31 22:26 | Emergency (ER) | payer MEDICAID, SELFPAY ==
[2021-07-31] VITALS (19 sets, daily range): BP systolic 92–164; BP diastolic 63–89; PULSE 67–85; RESP 7–22; TEMP 36.4; O2SAT 85–100; BMI 23.7
--- NOTE | 2021-07-31 22:29 | XRR_ITS ---
PROCEDURE INFORMATION: Exam: XR Chest Exam date and time: 07/31/2021 10:29 PM Age: 75 years old Clinical indication: Pain; Chest pressure; Additional info: Cp TECHNIQUE: Imaging protocol: XR of the chest. Views: 1 view. COMPARISON: CR XR chest 1V portable [id number] 02/28/2021 1:27 PM FINDINGS: Lungs: Emphysema. No focal airspace consolidation identified. Coarse reticular interstitial lung changes. Pleural spaces: Unremarkable. No pleural effusion. No pneumothorax. Heart/Mediastinum: Unremarkable. No cardiomegaly. Bones/joints: Unremarkable. XR/XR chest 1V portable [id number] IMPRESSION: No focal acute pulmonary disease identified. Radiation Dose CTDIVOL = (mGy): DLP = (mGy-cm)
--- NOTE | 2021-07-31 22:30 | ECG_ITS ---
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 Measurements Intervals Adrian Rate: 71 P: 9 AR: 163 QRS: 47 QRSD: 96 T: 61 QT: 397 QTc: 433 Interpretive Statements SINUS RHYTHM WITH ISOLATED PVC Compared to ECG 02/26/2021 08:46:14 Sinus tachycardia no longer present Myocardial infarct finding no longer present T-wave abnormality no longer present Possible ischemia no longer present Electronically Signed On 08-01-2021 19:23:30 CDT by Ruma Santiago M.D. [id number]
--- NOTE | 2021-07-31 22:30 | W.ED.CHESTPA ---
HPI - Chest Pain General: Chief Complaint: Chest Pain Stated Complaint: CHEST PAIN Time Seen by Provider: 07/31/21 22:29 Source: patient and EMS Mode of arrival: EMS Limitations: no limitations History of Present Illness: HPI narrative: 75-year-old male has a cardiac history states he started have a sharp pain in the center of his chest 2 hours ago. States the pain is been constant is currently a 4 out of 10. He also has had chronic chest pain in the past. Denies any nausea vomiting or shortness of breath. Patient denies any worsening improving factors. Associated symptoms: Deny abdominal pain, dyspnea, fever(s), nausea or vomiting Review of Systems Const: Denies: fever(s), chills, body aches or change in appetite Eyes: Denies: blurry vision or eye discomfort ENMT: Denies: throat pain or dental pain Card: Reports: chest pain Resp: Denies: dyspnea GI: Denies: abdominal pain, nausea, vomiting or diarrhea : Denies: dysuria Musc: Denies: neck pain or back pain Skin/Breast: Denies: rash Neuro: Denies: headache(s) Psych: Denies: depression Aiden/Lymph: Denies: easy bruising All/Imm: Denies: urticaria PFSH ED PFSH: Medical History BPH (benign prostatic hyperplasia) COPD (chronic obstructive pulmonary disease) Dementia of frontal lobe type DJD (degenerative joint disease) GERD (gastroesophageal reflux disease) History of 2019 novel coronavirus disease (COVID-19) Major depressive disorder, single episode, in full remission Proteus infection Urinary retention Ventricular premature beats Surgical History History of thoracentesis Chronic right pleural effusion which needed Oxford drain which was removed by Dr. Hoover 2016 PEG (percutaneous endoscopic gastrostomy) status Family History Father Cancer Grandfather Myocardial infarction Other CAD (coronary artery disease) Social History Smoking and tobacco status: never smoked Alcohol intake: never Lives independently: No Marital status: History of recent travel: No Physical Exam Const: COMMON NORMALS: no acute distress, patient oriented x3 and healthy appearing HENMT: COMMON NORMALS: normocephalic and atraumatic HEAD & SCALP: normocephalic and atraumatic Eye: COMMON NORMALS: Equal, round and reactive pupils present and EOMs intact bilaterally PUPIL: Yes Equal, round and reactive pupils present Neck/C-Spine: COMMON NORMALS: full ROM and supple Chest: COMMONS NORMALS: normal inspection of the chest and normal palpation of entire chest wall Resp: COMMON NORMALS: normal respiratory effort, No retractions, No use of accessory muscles and clear to auscultation bilaterally AUSCULTATION: clear to auscultation bilaterally Cardio: COMMON NORMALS: regular rate, regular rhythm and No murmurs present (Cardio) RATE: regular rate RHYTHM: regular rhythm GI: COMMON NORMALS: Normal to inspection, nondistended, normoactive bowel sounds present, Soft to palpation, non-tender and no masses PALPATION: Yes Soft to palpation Extremity: COMMON NORMALS: normal to inspection and full ROM Neuro: COMMON NORMALS: patient oriented x3, moves all extremities and no focal motor deficits Psych: COMMON NORMALS: mental status grossly normal, Normal thought process present and cooperative THOUGHT PROCESS: Normal thought process present Skin: COMMON NORMALS: no rashes or lesions noted and no wounds GENERAL SKIN EXAM: no rashes or lesions noted Course Vital Signs: Vital signs: Vital Signs Temperature 97.5 F L 07/31/21 22:31 Pulse Rate 66 08/01/21 00:55 Respiratory Rate 24 H 08/01/21 01:00 Blood Pressure 121/76 08/01/21 01:00 Pulse Oximetry 92 08/01/21 01:00 MDM - Chest Pain MDM Narrative: Medical decision making narrative: Patient presents with chest pains atypical in nature. Repeat troponin is negative EKGs here show no acute findings. Has been pain-free here. He has no signs of dissection or pulmonary embolism. He is to follow-up with PCP and return if worsening. Lab Data: Labs: Lab Results 07/31/21 07/31/21 07/31/21 22:12 22:12 22:12 WBC 7.5 10^3/uL 10^3/ uL (4.0-10.0) RBC 5.00 10^6/uL 10^6 /uL (4.1-5.3) Hgb 13.3 g/dL g/dL (11.7-16.6) Hct 41.5 % L % (42.0-52.0) MCV 83.0 fl fl (80-94) MCH 26.6 pg L pg (28.0-34.0) MCHC 32.0 g/dL g/dL (30.0-36.0) RDW 12.5 % % (12.1-15.1) Plt Count 200 10^3/cmm 10^3 /cmm (130-400) MPV 11.5 fL H fL (7.4-10.4) Neut % (Auto) 48.4 % % Lymph % (Auto) 35.8 % % Loup % (Auto) 12.8 % % Eos % (Auto) 2.1 % % Baso % (Auto) 0.8 % % Neut # (Auto) 3.60 10^3/uL 10^3 /uL (1.8-7.7) Lymph # (Auto) 2.7 10^3/uL 10^3/ uL (0.8-4.8) Loup # (Auto) 1.0 10^3/uL H 10^ 3/uL (0.2-0.9) Eos # (Auto) 0.2 10^3/uL 10^3/ uL (0.0-0.8) Baso # (Auto) 0.1 10^3/uL 10^3/ uL (0.0-0.1) Nucleated RBC % (a uto) 0 % % Nucleated RBCs # 0.0 /100WBC /100W BC Sodium 140 mmol/L mmol/L (136-145) Potassium 4.2 mmol/L mmol/L (3.5-5.1) Chloride 103 mmol/L mmol/L (98-107) Carbon Dioxide 26 mmol/L mmol/L (22-29) Anion Gap 15.2 (5-19) BUN 25 mg/dL H mg/dL (8-23) Creatinine 1.2 mg/dL mg/dL (0.7-1.2) GFR Calculation Not Reportable Glucose 96 mg/dL mg/dL (65-115) Calculated Osmolal ity 294 mOsm/kg mOsm/ kg (285-295) Calcium 9.5 mg/dL mg/dL (8.5-10.5) Total Bilirubin 0.2 mg/dL mg/dL (0.15-1.2) AST 14 U/L U/L (0-40) ALT 14 U/L U/L (0-41) Alkaline Phosphata se 99 IU/L IU/L (40-130) Troponin T Baselin e 35 ng/L H ng/L (0-15) Troponin T 120 Min [place] Delta Troponin T Total Protein 7.4 g/dL g/dL (6.6-8.7) Albumin 4.0 g/dL g/dL (3.5-5.2) Globulin 3.4 g/dL g/dL (1.3-4.6) 08/01/21 00:51 WBC RBC Hgb Hct MCV MCH MCHC RDW Plt Count MPV Neut % (Auto) Lymph % (Auto) Loup % (Auto) Eos % (Auto) Baso % (Auto) Neut # (Auto) Lymph # (Auto) Loup # (Auto) Eos # (Auto) Baso # (Auto) Nucleated RBC % (a uto) Nucleated RBCs # Sodium Potassium Chloride Carbon Dioxide Anion Gap BUN Creatinine GFR Calculation Glucose Calculated Osmolal ity Calcium Total Bilirubin AST ALT Alkaline Phosphata se Troponin T Baselin e Troponin T 120 Min [place] 32.96 ng/L H ng/L (0-15) Delta Troponin T -2.04 ABS# L ABS# (0-10) Total Protein Albumin Globulin Imaging Data^: CXR: Attestation: I personally reviewed and interpreted this imaging study as follows: Radiologist's impression: [address] [address] XRay Report Signed Patient: Ben Ochoa Unit #: [id number] : 1945 Age/Sex: 75 / M ADM Date: 07/31/21 Loc: ER Room/Bed: Attending Dr: Ordering Provider/Ordering MD: Cherise Gonzales MD Date of Service: 07/31/21 Procedure(s): XR chest 1V portable [id number] Accession Number(s): [id number] Report Number: [id number] PROCEDURE INFORMATION: Exam: XR Chest Exam date and time: 07/31/2021 10:29 PM Age: 75 years old Clinical indication: Pain; Chest pressure; Additional info: Cp TECHNIQUE: Imaging protocol: XR of the chest. Views: 1 view. COMPARISON: CR XR chest 1V portable [id number] 02/28/2021 1:27 PM FINDINGS: Lungs: Emphysema. No focal airspace consolidation identified. Coarse reticular interstitial lung changes. Pleural spaces: Unremarkable. No pleural effusion. No pneumothorax. Heart/Mediastinum: Unremarkable. No cardiomegaly. Bones/joints: Unremarkable. XR/XR chest 1V portable [id number] IMPRESSION: No focal acute pulmonary disease identified. Radiation Dose CTDIVOL = (mGy): DLP = (mGy-cm) Dictated By: Claudio Jaimes Signed By: Claudio Jaimes Signed Date/Time: 08/01/213 DD/ 28 EKG Data^: EKG 1: Attestation: I personally reviewed and interpreted this EKG as follows: EKG interpretation date: 07/31/21 EKG interpretation time: 22:37 Interpretation: nsr hr [address] or t wave abnormalities qrs 96 qtc 420 EKG 2: Attestation: I personally reviewed and interpreted this EKG as follows: EKG interpretation date: 08/01/21 EKG interpretation time: 00:29 Interpretation: nsr hr [address] or t wave abnormalities qrs 102 qtc 453 Discharge Plan Discharge Patient Disposition: Home Clinical Impression: Chest pain Condition: Stable Prescriptions: No Action acetaminophen 325 mg capsule 650 mg PO Q4H PRN (Reason: PAIN/FEVER) RF: 0 finasteride 5 mg tablet 5 mg PO DAILY@20 RF: 0 bisacodyl 10 mg suppository 10 mg OR DAILY PRN (Reason: Constipation) RF: 0 magnesium hydroxide [Milk of Magnesia] 400 mg/5 mL suspension 30 ml PO DAILY PRN (Reason: Constipation) RF: 0 pantoprazole 40 mg tablet,delayed release (DR/EC) 40 mg PO DAILY RF: 0 Hershey Cough Drops 7.6 mg Lozenge 7.6 mg MUCOUS MEMBRANE Q2H PRN (Reason: Cough) RF: 0 calcium carbonate [Tums] 200 mg calcium (500 mg) Tablet,Chewable 1,000 mg PO QID PRN (Reason: Indigestion) RF: 0 Enema Disposable 19-7 gram/118 mL Enema 118 ml OR DAILY PRN (Reason: Constipation) RF: 0 aspirin 81 mg Tablet,Delayed Release (Dr/Ec) 81 mg PO DAILY@08 RF: 0 sennosides-docusate sodium [Stool Softener-Laxative] 8.6-50 mg Tablet 1 tab PO DAILY Qty: 30 RF: 0 tamsulosin [Flomax] 0.4 mg capsule 0.4 mg PO BID Qty: 60 RF: 0 Discharge Orders: Discharge ED (Routine); Ordered 08/01/21 Ordered By: Cherise Gonzales Discharge Diet: Advance as tolerated Discharge Activity: Resume usual activity Patient Instructions: Chest Pain (ED) Coding Level of Care Code ED Fagoting Machine Operator for Rachelle Fwd Exam Comprehensive
[2021-07-31 22:44] LABS: Basophils # 0.1 10^3/uL (0.0-0.1); Basophils % 0.8 %; Eosinophils # 0.2 10^3/uL (0.0-0.8); Eosinophils % 2.1 %; Hematocrit 41.5 % (42.0-52.0); Hemoglobin 13.3 g/dL (11.7-16.6); Lymphocytes # 2.7 10^3/uL (0.8-4.8); Lymphocytes % 35.8 %; Mean Corpuscular Hemoglobin 26.6 pg (28.0-34.0); Mean Platelet Volume 11.5 fL (7.4-10.4); Monocytes % 12.8 %; Neutrophils % 48.4 %; Nucleated Red Blood Cells % 0 %; Platelet Count 200 10^3/cmm (130-400); Red Cell Distribution Width 12.5 % (12.1-15.1); White Blood Count 7.5 10^3/uL (4.0-10.0)
[2021-07-31 23:01] LABS: Troponin(5th) Baseline 35 ng/L (0-15)
[2021-07-31] MEDS: ondansetron 2 mg/ML SDV 2 mL 4 MG IVP (23:02)
[2021-07-31 23:04] LABS: Alanine Aminotransferase 14 U/L (0-41); Alkaline Phosphatase 99 IU/L (40-130); Anion Gap 15.2 (5-19); Aspartate Amino Transferase 14 U/L (0-40); Blood Urea Nitrogen 25 mg/dL (8-23); Calcium 9.5 mg/dL (8.5-10.5); Carbon Dioxide 26 mmol/L (22-29); Chloride 103 mmol/L (98-107); Globulin 3.4 g/dL (1.3-4.6); Glucose 96 mg/dL (65-115); Osmolality Calculated 294 mOsm/kg (285-295); Potassium 4.2 mmol/L (3.5-5.1); Sodium 140 mmol/L (136-145); Total Bilirubin 0.2 mg/dL (0.15-1.2); Total Protein 7.4 g/dL (6.6-8.7)
[2021-07-31] MEDS: morphine 4 mg/mL SDV 1 mL IVP (23:05)
[2021-08-01] VITALS (28 sets, daily range): BP systolic 121–139; BP diastolic 70–85; PULSE 64–95; RESP 6–26; O2SAT 87–100
--- NOTE | 2021-08-01 00:30 | ECG_ITS ---
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 Measurements Intervals [place] Rate: 76 P: 13 AK: 169 QRS: 51 QRSD: 102 T: 66 QT: 423 QTc: 477 Interpretive Statements SINUS RHYTHM WITH OCCASIONAL VENTRICULAR PREMATURE COMPLEXES WITH OCCASIONAL SUPRAVENTRICULAR PREMATURE COMPLEXES SEPTAL MYOCARDIAL INFARCTION , OF INDETERMINATE AGE [40+ ms Q WAVE IN V1/V2] Compared to ECG 07/31/2021 22:37:21 Ventricular premature complex(es) now present Myocardial infarct finding now present Electronically Signed On 08-01-2021 19:26:23 CDT by Ruma Santiago M.D. [id number]
[2021-08-01 01:31] LABS: Troponin 5 2HR 32.96 ng/L (0-15)
[2021-08-01 01:33] LABS: Troponin 5 2HR Delta -2.04 ABS# (0-10)
[2021-08-01 01:43] LABS: Troponin 5 6HR 33.28 ng/L (0-15)
[2021-08-01 01:48] LABS: Troponin 5 6HR Delta -1.72 ng/L (0-12)
--- NOTE | 2021-08-01 02:02 | PC.NURSE ---
pt. is being discharged to [facility]. Pt. awaiting transportation
--- NOTE | 2021-08-01 04:27 | PC.NURSE ---
Pt. is resting in room waiting for transport service.
--- NOTE | 2021-08-01 04:30 | PC.NURSE ---
Pt transported back to [facility] via [facility] transport service.
== END 2021-08-01 04:30 | disposition home or self-care (01) ==
PROVIDERS: Emergency Provider Emergency Medicine
DX: R07.9 Chest pain, unspecified (principal); Z79.82 Long term (current) use of aspirin; J44.9 Chronic obstructive pulmonary disease, unspecified; F03.90 Unspecified dementia, unspecified severity, without behavioral disturbance, psychotic disturbance, mood disturbance, and anxiety
CPT/HCPCS: 71045; 80053; 84484; 85025; 93005; 96374; 96375; 99284; J2270; J2405

== ENCOUNTER 2023-01-18 21:05 | Emergency (ER) | payer MEDICAID, SELFPAY ==
[2023-01-18 21:11] VITALS: BP 194/89; PULSE 95; RESP 28; O2SAT 95; BMI 21.8
--- NOTE | 2023-01-18 21:21 | ED_ITS ---
HPI - GI Bleed General: Chief complaint: GI Bleed Stated complaint: RECTAL BLEEDING Time Seen by Provider: 01/18/23 21:07 Source: patient and EMS Mode of arrival: EMS Limitations: no limitations History of Present Illness: 77-year-old male states he been having some bright red blood per rectum over the last week [facility] he does have an external hemorrhoid he denies any weakness denies any abdominal pain denies any worsening proving factors he is not on any blood thinners. Associated symptoms: Denies chills, easy bruising, fever(s), headache(s) or rash Review of Systems Const: Denies: fever(s), chills, body aches or change in appetite Eyes: Denies: blurry vision or eye discomfort ENMT: Denies: throat pain or dental pain Card: Denies: chest pain Resp: Denies: dyspnea GI: Reports: hematochezia : Denies: dysuria Musc: Denies: neck pain or back pain Skin/Breast: Denies: rash Neuro: Denies: headache(s) Psych: Denies: depression Aiden/Lymph: Denies: easy bruising All/Imm: Denies: urticaria PFSH ED PFSH: Medical History BPH (benign prostatic hyperplasia) COPD (chronic obstructive pulmonary disease) Dementia of frontal lobe type DJD (degenerative joint disease) GERD (gastroesophageal reflux disease) History of 2019 novel coronavirus disease (COVID-19) Major depressive disorder, single episode, in full remission Proteus infection Urinary retention Ventricular premature beats Surgical History History of thoracentesis Chronic right pleural effusion which needed [place] drain which was removed by Dr. Hoover 2016 PEG (percutaneous endoscopic gastrostomy) status Family History Father Cancer Grandfather Myocardial infarction Other CAD (coronary artery disease) Social History Smoking and tobacco status: never smoked Alcohol intake: never Lives independently: No Marital status: Physical Exam Const: COMMON NORMALS: no acute distress, patient oriented x3 and healthy appearing HENMT: COMMON NORMALS: normocephalic and atraumatic HEAD & SCALP: normocephalic and atraumatic Eye: COMMON NORMALS: Equal, round and reactive pupils present and EOMs intact bilaterally PUPIL: Yes Equal, round and reactive pupils present Neck/C-Spine: COMMON NORMALS: full ROM and supple Chest: COMMONS NORMALS: normal inspection of the chest and normal palpation of entire chest wall Resp: COMMON NORMALS: normal respiratory effort, No retractions, No use of accessory muscles and clear to auscultation bilaterally AUSCULTATION: clear to auscultation bilaterally Cardio: COMMON NORMALS: regular rate, regular rhythm and No murmurs present (Cardio) RATE: regular rate RHYTHM: regular rhythm GI: COMMON NORMALS: Normal to inspection, nondistended, normoactive bowel s ounds present, Soft to palpation, non-tender and no masses PALPATION: Yes Soft to palpation OTHER: External hemorrhoid noted rectal exam at this time shows no blood Extremity: COMMON NORMALS: normal to inspection and full ROM Neuro: COMMON NORMALS: patient oriented x3, moves all extremities and no focal motor deficits Psych: COMMON NORMALS: mental status grossly normal, Normal thought process present and cooperative THOUGHT PROCESS: Normal thought process present Skin: COMMON NORMALS: no rashes or lesions noted and no wounds GENERAL SKIN EXAM: no rashes or lesions noted Course Vital Signs: Vital signs: Vital Signs Pulse Rate 95 01/18/23 21:11 Respiratory Rate 28 H 01/18/23 21:11 Blood Pressure 194/89 01/18/23 21:11 Pulse Oximetry 95 01/18/23 21:11 Oxygen Delivery Me thod 01/18/23 21:11 MDM - GI Bleed Medical Decision Making Patient presents here with a hemorrhoid he has no signs of large bleeding here his hemoglobin is normal he stable for [facility]. Lab Data 01/18/23 21:15 Laboratory Results WBC 8.6 10^3/uL (4.0-10.0) 01/18/23 21:15 RBC 4.78 10^6/uL (4.1-5.3) 01/18/23 21:15 Hgb 13.0 g/dL (11.7-16.6) 01/18/23 21:15 Hct 40.4 % (42.0-52.0) L 01/18/23 21:15 MCV 84.5 fl (80-94) 01/18/23 21:15 MCH 27.2 pg (28.0-34.0) L 01/18/23 21:15 MCHC 32.2 g/dL (30.0-36.0) 01/18/23 21:15 RDW 13.3 % (12.1-15.1) 01/18/23 21:15 Plt Count 202 10^3/cmm (130-400) 01/18/23 21:15 MPV 10.7 fL (7.4-10.4) H 01/18/23 21:15 Neut % (Auto) 70.5 % 01/18/23 21:15 Lymph % (Auto) 13.6 % 01/18/23 21:15 [place] % (Auto) 12.1 % 01/18/23 21:15 Eos % (Auto) 2.9 % 01/18/23 21:15 Baso % (Auto) 0.7 % 01/18/23 21:15 Neut # (Auto) 6.04 10^3/uL (1.8-7.7) 01/18/23 21:15 Lymph # (Auto) 1.2 10^3/uL (0.8-4.8) 01/18/23 21:15 [place] # (Auto) 1.0 10^3/uL (0.2-0.9) H 01/18/23 21:15 Eos # (Auto) 0.3 10^3/uL (0.0-0.8) 01/18/23 21:15 Baso # (Auto) 0.1 10^3/uL (0.0-0.1) 01/18/23 21:15 Nucleated RBC % (auto) 0 % 01/18/23 21:15 Nucleated RBCs # 0.0 /100WBC 01/18/23 21:15 Discharge Plan Discharge Patient Disposition: Home Clinical Impression: Hemorrhoids Condition: Stable Prescriptions: New Proctofoam 1 % foam 1 applic [place] BID Qty: 15 0RF No Action acetaminophen 325 mg capsule 650 mg PO Q4H PRN (Reason: PAIN/FEVER) finasteride 5 mg tablet 5 mg PO DAILY@20 bisacodyl 10 mg suppository 10 mg [place] DAILY PRN (Reason: Constipation) magnesium hydroxide [Milk of Magnesia] 400 mg/5 mL suspension 30 ml PO DAILY PRN (Reason: Constipation) pantoprazole 40 mg tablet,delayed release (DR/EC) 40 mg PO DAILY ketoconazole 2 % cream 1 applic topical BID Qty: 30 6RF Rx Instructions: Apply to red scaly areas of the face 1-2 times daily. ketoconazole 2 % shampoo 1 applic topical ONCE Qty: 120 3RF Rx Instructions: Lather onto affected areas as body wash everyday for 4 weeks then one week per month thereafter. hydrocortisone 2.5 % cream 1 applic topical BID PRN (Reason: skin irritation) Qty: 454 1RF Rx Instructions: apply to affected itchy areas [place] Cough Drops 7.6 mg Lozenge 7.6 mg MUCOUS MEMBRANE Q2H PRN (Reason: Cough) calcium carbonate [Tums] 200 mg calcium (500 mg) Tablet,Chewable 1,000 mg PO QID PRN (Reason: Indigestion) Enema Disposable 19-7 gram/118 mL Enema 118 ml [place] DAILY PRN (Reason: Constipation) aspirin 81 mg Tablet,Delayed Release (Dr/Ec) 81 mg PO DAILY@08 sennosides-docusate sodium [Stool Softener-Laxative] 8.6-50 mg Tablet 1 tab PO DAILY Qty: 30 0RF tamsulosin [Flomax] 0.4 mg capsule 0.4 mg PO BID Qty: 60 0RF Discharge Orders: Discharge ED (Routine); Ordered 01/18/23 Ordered By: Cherise Gonzales Discharge Diet: Advance as tolerated Discharge Activity: Resume usual activity Patient Instructions: Hemorrhoids (ED) Coding Level of Care Code ED Shearing Supervisor for Rachelle Buckner
[2023-01-18 21:22] LABS: Basophils # 0.1 10^3/uL (0.0-0.1); Basophils % 0.7 %; Eosinophils # 0.3 10^3/uL (0.0-0.8); Eosinophils % 2.9 %; Hematocrit 40.4 % (42.0-52.0); Lymphocytes # 1.2 10^3/uL (0.8-4.8); Lymphocytes % 13.6 %; Mean Corpuscular HGB Conc 32.2 g/dL (30.0-36.0); Mean Corpuscular Hemoglobin 27.2 pg (28.0-34.0); Mean Corpuscular Volume 84.5 fl (80-94); Mean Platelet Volume 10.7 fL (7.4-10.4); Monocytes % 12.1 %; Neutrophils # 6.04 10^3/uL (1.8-7.7); Neutrophils % 70.5 %; Nucleated Red Blood Cells % 0 %; Platelet Count 202 10^3/cmm (130-400); Red Blood Count 4.78 10^6/uL (4.1-5.3); Red Cell Distribution Width 13.3 % (12.1-15.1); White Blood Count 8.6 10^3/uL (4.0-10.0)
--- NOTE | 2023-01-19 10:05 | DCPLANNER ---
Addendum entered by Dariela Winchester 03/14/23 11:15: Patient had a follow up appointment scheduled with general surgery - patient did attend appointment Addendum entered by Dariela Winchester 01/23/23 09:53: Patient has a follow up appointment scheduled for Sunday, February 14, 2023 at 1:[address] Mcginnis at general surgery. Original Note: database administration manager had message to schedule a follow up appointment for patient with general surgery. database administration manager sent patients information to the front office staff at general surgery. Patients information will be printed and reviewed. Clinic will call patient with appointment information.
--- NOTE | 2023-01-25 11:23 | DCPLANNER ---
business banking relationship manager called patient due to no primary care physician. Patient is a resident at [facility] his primary care physician is Dr. Adams.
== END 2023-01-18 22:56 | disposition home or self-care (01) ==
PROVIDERS: Emergency Provider Emergency Medicine; PCP Internal Medicine
DX: K64.9 Unspecified hemorrhoids (principal); Z79.82 Long term (current) use of aspirin; J44.9 Chronic obstructive pulmonary disease, unspecified; F03.90 Unspecified dementia, unspecified severity, without behavioral disturbance, psychotic disturbance, mood disturbance, and anxiety
CPT/HCPCS: 85025; 99283

== ENCOUNTER → 2023-03-13 08:12 | Outpatient (BNVA) | payer MEDICAID, SELFPAY | PROVIDERS: PCP Internal Medicine; Visit Provider Surgery | DX: K64.9 Unspecified hemorrhoids (principal); K21.9 Gastro-esophageal reflux disease without esophagitis; K62.89 Other specified diseases of anus and rectum; K64.5 Perianal venous thrombosis | CPT/HCPCS: 99203 ==

== ENCOUNTER 2023-04-04 06:43 | Day surgery (SDC) | payer MEDICAID, SELFPAY ==
[2023-04-03 08:26] VITALS: BMI 24.1
[2023-04-04 07:01] VITALS: BP 144/106; PULSE 106; RESP 16; TEMP 36.4; O2SAT 95
[2023-04-04] MEDS: ondansetron 2 mg/ML SDV 2 mL 4 MG IVP (07:13)
[2023-04-04] MEDS: sodium chloride 0.9% 1,000 ML 30 ML IV (07:14)
--- NOTE | 2023-04-04 07:58 | ANES.PREANE2 ---
Pre-Anesthetic Assessment Height/Weight: Height 1.88 m Weight 85.366 kg Temp Pulse Resp BP Pulse Ox O2 Del Method 97.6 F 106 H 16 144/106 95 Room Air 04/04/23 07:01 04/04/23 07:01 04/04/23 07:01 04/04/23 07:01 04/04/23 07:01 04/04/23 07:01 Preop Diagnosis: GERD,reflux,hemorrhoids Operation Date: 04/04/23 08:00 Proposed Procedures p EGD(Not Applicable) - Reinier Mcginnis DO s Colonoscopy/egd 57026/87130 K21.9 K64.9 K62.89 K64.5(Not Applicable) - Reinier Mcginnis DO Was Beta Ale taken within 24 hours: N/A Was Clonidine taken within 24 hours: N/A Last intake: Intake Last Liquid Date 04/03/23 Last Liquid Time 18:00 Last Solid Date 04/02/23 Social No alcohol and No tobacco Exam alert, oriented x 3, clear to auscultation bilaterally and regular rate & rhythm Hx dementia Airway Submandibular: within normal limits Cervical ROM: within normal limits Mallampati: Class II Dentition: false Comments: Comments: edentulous History/ROS No significant history except as noted and No significant complaints Pulmonary Chronic Obstructive Pulmonary Disease and Shortness of Breath CV/HEM Hypertension None reported Hepatic None reported GI Gastroesophageal Reflux Disease Metabolic None reported Musc/skel Osteoarthritis/DJD and Weakness nonambulatory Neuropsych Dementia and Depression Anesthetic Plan ASA status: 3 Anesthesia: Anesthesia Evaluation and MAC Risk of > 500 ml blood loss (7ml/kg in children): No Medications/Allergies Home Medications Medication Instructions Recorded Confirmed Last Taken Type acetaminophen 325 mg capsule 650 mg PO Q4H PRN PAIN/FEVER 11/27/19 04/04/23 03/27/23 History finasteride 5 mg tablet 5 mg PO DAILY@20 11/27/19 04/04/23 04/02/23 History bisacodyl 10 mg rectal suppository 10 mg [place] DAILY PRN Constipation 03/01/20 04/04/23 Unknown History calcium carbonate 200 mg calcium 1,000 mg PO QID PRN Indigestion 12/08/20 04/04/23 03/29/23 History (500 mg) chewable tablet (Tums) menthol 7.6 mg lozenges ([place] 7.6 mg mucous membrane Q2H PRN 12/08/20 04/04/23 Unknown History Cough Drops) Cough aspirin 81 mg tablet,delayed 81 mg PO DAILY@08 01/26/21 04/04/23 03/31/23 History release hydrocortisone 2.5 % topical cream 1 applic topical BID PRN skin 12/20/22 04/04/23 Unknown Rx irritation #454 grams pantoprazole 40 mg tablet,delayed 40 mg PO BID 6 weeks #84 tabs 03/13/23 04/04/23 04/03/23 Rx release Refresh Tears 1 ophthalmic insert eye-both BID 04/03/23 04/04/23 04/03/23 History tamsulosin 0.4 mg capsule (Flomax) 0.4 mg PO DAILY 04/03/23 04/04/23 04/03/23 History polyethylene glycol 3350 17 4 g PO DAILY PRN Constipation 04/04/23 04/04/23 Unknown History gram/dose oral powder (Miralax) Allergies Allergy/AdvReac Type Severity Reaction Status Date / Time tetanus toxoid, adsorbed Allergy Unknown unknown Verified 04/03/23 08:19 Current Medications Generic Name Dose Route Start Last Admin Trade Name Freq PRN Reason Stop Dose Admin Sodium Chloride 1,000 mls @ 30 mls/hr 04/04/23 07:00 04/04/23 07:14 Sodium Chloride 0.9% IV 04/05/23 06:59 30 mls/hr .Q24H TD Administration Ondansetron HCl 4 mg 04/04/23 06:52 04/04/23 07:13 Ondansetron 2 Mg/Ml Sdv 2 Ml IVP 4 mg ONCE PRN Administration NAUSEA AND VOMITING PFSH Anesthesia Medical History (Updated 03/13/23 @ 09:20 by Reinier Mcginnis DO) BPH (benign prostatic hyperplasia) COPD (chronic obstructive pulmonary disease) Dementia of frontal lobe type DJD (degenerative joint disease) GERD (gastroesophageal reflux disease) History of 2019 novel coronavirus disease (COVID-19) Major depressive disorder, single episode, in full remission Proteus infection Urinary retention Ventricular premature beats Surgical History History of thoracentesis Chronic right pleural effusion which needed [place] drain which was removed by Dr. Hoover 2015 PEG (percutaneous endoscopic gastrostomy) status Family History Father Cancer Grandfather Myocardial infarction Other CAD (coronary artery disease) Social History Smoking and tobacco status: never smoked Alcohol intake: never Substance/Drug Use: never Lives independently: No Marital status: Data Anesthesia Cardiac Studies: Echocardiogram Ultrasound 01/25/21
--- NOTE | 2023-04-04 08:19 | W.PM.OPSUD ---
Surgery/Procedure H&P Update DATE OF PROCEDURE: April 04, 2023 DATE H&P PERFORMED: 03/13/23 H&P UPDATE INFORMATION: I have reviewed H&P completed within last 30 days, I have examined patient prior to procedure and No changes to prior documentation PREOP DIAGNOSIS: GERD,reflux,hemorrhoids PLANNED PROCEDURE: Operation Date: 04/04/23 08:00 Proposed Procedures p EGD(Not Applicable) - DO marshall Hunter Colonoscopy/egd 67255/44491 K21.9 K64.9 K62.89 K64.5(Not Applicable) - Reinier Mcginnis DO
[2023-04-04 08:58] VITALS: BP 112/58; PULSE 82; RESP 18; TEMP 36.2; O2SAT 100
[2023-04-04 09:25] VITALS: BP 116/64; PULSE 97; RESP 16; O2SAT 92
--- NOTE | 2023-04-04 14:01 | ANE.PACU2 ---
Inpatient post-anesthesia follow up: Airway intact: Yes Vital signs: Temperature 97.1 F Pulse Rate 97 Respiratory Rate 16 Blood Pressure 116/64 Pulse Oximetry 92 Oxygen Delivery Me thod Room Air Oxygen Flow Rate 4 Fraction of Inspir ed Oxygen Hydration adequate: Yes Nausea and vomiting: No Pain level: 2 Mental status: Baseline
== END 2023-04-04 09:34 | disposition home or self-care (01) ==
PROVIDERS: PCP Internal Medicine; Visit Provider Surgery
PROC: 0DJ08ZZ Inspection of Upper Intestinal Tract, Via Natural or Artificial Opening Endoscopic (ICD-10-PCS; CPT 43235; principal; 2023-04-04 08:00)
PROC: 0DJD8ZZ Inspection of Lower Intestinal Tract, Via Natural or Artificial Opening Endoscopic (ICD-10-PCS; CPT 45378; 2023-04-04 08:00)
DX: K51.40 Inflammatory polyps of colon without complications (principal); K57.30 Diverticulosis of large intestine without perforation or abscess without bleeding; K64.4 Residual hemorrhoidal skin tags; K29.50 Unspecified chronic gastritis without bleeding; K44.9 Diaphragmatic hernia without obstruction or gangrene; K21.9 Gastro-esophageal reflux disease without esophagitis; J44.9 Chronic obstructive pulmonary disease, unspecified; I10 Essential (primary) hypertension; F03.90 Unspecified dementia, unspecified severity, without behavioral disturbance, psychotic disturbance, mood disturbance, and anxiety; Z79.82 Long term (current) use of aspirin; Z86.16 Personal history of COVID-19
CPT/HCPCS: 43239; 45385; 88305; 88342; 96374; J2405; J2704; J7030

== ENCOUNTER 2023-04-06 12:28 | Inpatient (IN) | payer MEDICAID, SELFPAY ==
[2023-04-06] VITALS (37 sets, daily range): BP systolic 104–175; BP diastolic 58–90; PULSE 85–126; RESP 14–36; TEMP 38.9; O2SAT 72–98; BMI 24.1
--- NOTE | 2023-04-06 12:33 | XRR_ITS ---
PROCEDURE INFORMATION: Exam: XR Chest Exam date and time: 04/06/2023 1:43 PM Age: 77 years old Clinical indication: Cough; Additional info: Dyspnea/cough TECHNIQUE: Imaging protocol: Radiologic exam of the chest. Views: 1 view. COMPARISON: CR XR chest 1V portable [id number] 07/31/2021 10:42 PM FINDINGS: Lungs: Bibasilar atelectasis versus infiltrate. Emphysematous changes. Pleural spaces: Biapical probable pleuroparenchymal fibrosis again seen. Heart/Mediastinum: Unremarkable. No cardiomegaly. Bones/joints: Unremarkable. XR/XR chest 1V portable [id number] IMPRESSION: 1. Bibasilar atelectasis versus infiltrate. 2. Emphysematous changes. 3. Biapical probable pleuroparenchymal fibrosis again seen.
--- NOTE | 2023-04-06 12:36 | W.ED.GENADLT ---
HPI - General Adult General: Chief complaint: Altered Mental Status Stated complaint: possible infection. ams Time Seen by Provider: 04/06/23 12:33 Source: EMS Mode of arrival: EMS History of Present Illness: 77-year-old male presents emergency room [facility] with altered mental status. Patient is a temp of 102 and is tachycardic in 120s with sinus tachycardia. He has had a significant increase in cough and is requiring oxygen normally he is on room air. He is unable to give any meaningful answers he can verbalize in response to questions but his history supplied is suspect. EMS reports staff had noted [facility] was cloudy at the prison. At baseline patient has frontal lobe dementia Onset (ago): unknown Relieving factors: none Exacerbating factors: none Review of Systems General: Reports: ROS unobtainable due to mental status PFSH ED PFSH: Medical History BPH (benign prostatic hyperplasia) COPD (chronic obstructive pulmonary disease) Dementia of frontal lobe type DJD (degenerative joint disease) GERD (gastroesophageal reflux disease) History of 2019 novel coronavirus disease (COVID-19) Major depressive disorder, single episode, in full remission Proteus infection Urinary retention Ventricular premature beats Surgical History History of thoracentesis Chronic right pleural effusion which needed [place] drain which was removed by Dr. Hoover 2016 PEG (percutaneous endoscopic gastrostomy) status Family History Father Cancer Grandfather Myocardial infarction Other CAD (coronary artery disease) Social History Smoking and tobacco status: never smoked Alcohol intake: never Substance/Drug Use: never Lives independently: No Marital status: Physical Exam Const: GENERAL APPEARANCE: cooperative ORIENTATION/CONSCIOUSNESS: Yes awake HENMT: COMMON NORMALS: normocephalic, atraumatic and hearing grossly normal bilaterally HEAD & SCALP: normocephalic and atraumatic Resp: AUSCULTATION: crackles and rhonchi Cardio: COMMON NORMALS: regular rhythm and No murmurs present (Cardio) RATE: tachycardic RHYTHM: regular rhythm GI: COMMON NORMALS: Soft to palpation and No hepatosplenomegaly present AUSCULTATION: Yes normoactive bowel sounds PALPATION: Yes Soft to palpation, No Tenderness to palpation present (GI), No Guarding due to palpation present (GI) and Yes No hepatosplenomegaly present Extremity: COMMON NORMALS: normal to inspection, capillary refill normal, no clubbing, cyanosis or edema, no calf tenderness and no pedal edema Skin: COMMON NORMALS: no rashes or lesions noted GENERAL SKIN EXAM: no rashes or lesions noted Course Vital Signs: Vital signs: Vital Signs Temperature 102.0 F H 04/06/23 12:37 Pulse Rate 113 H 04/06/23 15:00 Respiratory Rate 14 04/06/23 12:37 Blood Pressure 151/81 04/06/23 15:00 Pulse Oximetry 95 04/06/23 15:00 Oxygen Delivery Me thod Oxymask 04/06/23 13:37 Oxygen Flow Rate 3.5 04/06/23 13:37 MDM - General Adult Medical Decision Making UA shows cystitis Madrigal was placed. To start he has been started on antibiotic after cultures done. Talking to his he has intermittently had a Madrigal in the past and has had problems with urosepsis prior as well as lactate acid is 2.1. We will give IV fluids admit to ICU. Discussed with Dr. Maria he will be the attending. Chest x-ray shows some chronic changes at the right and left base and at the right apex actually looks better than previous chest x-ray radiology yet to overread discussed with Dr. Maria. Also reviewed the blood gas. Discussed with the patient's . He is a full code at this time. Medical Records I reviewed the patient's medical records. Lab Data I reviewed the patient's lab results. 04/06/23 13:27 04/06/23 13:27 Laboratory Results WBC 11.9 10^3/uL (4.0-10.0) H 04/06/23 13:27 RBC 4.91 10^6/uL (4.1-5.3) 04/06/23 13:27 Hgb 13.4 g/dL (11.7-16.6) 04/06/23 13:27 Hct 41.8 % (42.0-52.0) L 04/06/23 13:27 MCV 85.1 fl (80-94) 04/06/23 13: MCH 27.3 pg (28.0-34.0) L 04/06/23 13: MCHC 32.1 g/dL (30.0-36.0) 04/06/23 13: RDW 13.2 % (12.1-15.1) 04/06/23 13: Plt Count 171 10^3/cmm (130-400) 04/06/23 13: MPV 10.9 fL (7.4-10.4) H 04/06/23 13:27 Neut % (Auto) 87.5 % 04/06/23 13:27 Lymph % (Auto) 3.9 % 04/06/23 13: Jones % (Auto) 7.8 % 04/06/23 13: Eos % (Auto) 0.2 % 04/06/23 13: Baso % (Auto) 0.3 % 04/06/23 13: Neut # (Auto) 10.43 10^3/uL (1.8-7.7) H 04/06/23 13:27 Lymph # (Auto) 0.5 10^3/uL (0.8-4.8) L 04/06/23 13: Jones # (Auto) 0.9 10^3/uL (0.2-0.9) 04/06/23 13: Eos # (Auto) 0.0 10^3/uL (0.0-0.8) 04/06/23 13: Baso # (Auto) 0.0 10^3/uL (0.0-0.1) 04/06/23 13: Nucleated RBC % (auto) 0 % 04/06/23 13: Nucleated RBCs # 0.0 /100WBC 04/06/23 13:27 Specimen Type Arterial 04/06/23 12:53 Sample Site Radial, left 04/06/23 12:53 ABG pH 7.45 (7.35-7.45) 04/06/23 12:53 ABG pCO2 33.1 mmHg (35-45) L 04/06/23 12:53 ABG pO2 48.6 mmHg (80.0-100.0) L 04/06/23 12:53 ABG HCO3 23.2 mmol/L (22-26) 04/06/23 12:53 ABG O2 Saturation 87.5 04/06/23 12:53 ABG Base Excess 0.0 mmol/L (-2.0-2.0) 04/06/23 12:53 Piotr Test Pos 04/06/23 12:53 A-a O2 Gradient 14.3 mmHg (5-10) H 04/06/23 12:53 Hematocrit 43.5 % (42-52) 04/06/23 12:53 Hgb O2 Saturation 85.6 % (95-100) L 04/06/23 12:53 Carboxyhemoglobin 1.8 %THgb (0.4-20.1) 04/06/23 12:53 Methemoglobin 0.4 % (0.4-1.5) 04/06/23 12:53 Total Hemoglobin 14.2 g/dL (14-18) 04/06/23 12:53 Sodium 137.0 mmol/L (131-143) 04/06/23 12:53 Potassium 3.8 mmol/L (3.5-5.0) 04/06/23 12:53 Glucose 127.0 mg/dL (70-115) H 04/06/23 12:53 Ionized Calcium 1.2 mmol/L (1.1-1.4) 04/06/23 12:53 FiO2 28.0 % 04/06/23 12:53 Prop Sawyer ID Pos 04/06/23 12:53 Sodium 137 mmol/L (136-145) 04/06/23 13:27 Potassium 4.0 mmol/L (3.5-5.1) 04/06/23 13:27 Chloride 101 mmol/L (98-107) 04/06/23 13:27 Carbon Dioxide 24 mmol/L (22-29) 04/06/23 13:27 Anion Gap 16.0 (5-19) 04/06/23 13:27 BUN 16 mg/dL (8-23) 04/06/23 13:27 Creatinine 1.1 mg/dL (0.7-1.2) 04/06/23 13:27 GFR Calculation Not Reportable 04/06/23 13:27 Glucose 115 mg/dL (65-115) 04/06/23 13:27 Calculated Osmolality 286 mOsm/kg (285-295) 04/06/23 13:27 Lactic Acid 2.1 mmol/L (0.5-2.2) 04/06/23 13:27 Calcium 8.5 mg/dL (8.5-10.5) 04/06/23 13:27 Total Bilirubin 0.8 mg/dL (0.15-1.2) 04/06/23 13:27 AST 13 U/L (0-40) 04/06/23 13:27 ALT 14 U/L (0-41) 04/06/23 13:27 Alkaline Phosphatase 100 U/L (40-130) 04/06/23 13:27 Troponin T Baseline 43 ng/L (0-15) H 04/06/23 13:27 NT-Pro-B Natriuret Pep 953 pg/mL (0-450) H 04/06/23 13:27 Total Protein 6.1 g/dL (6.6-8.7) L 04/06/23 13:27 Albumin 3.4 g/dL (3.5-5.2) L 04/06/23 13:27 Globulin 2.7 g/dL (1.3-4.6) 04/06/23 13:27 Urine Color Yellow (Yellow) 04/06/23 14:10 Urine Appearance Sl cloudy (CLEAR) A 04/06/23 14:10 Urine pH 8 (5-7) H 04/06/23 14:10 Ur Specific [place] 1.010 (1.005-1.030) 04/06/23 14:10 Urine Protein 3+ (Negative) H 04/06/23 14:10 Urine Glucose (UA) Norm (Normal) 04/06/23 14:10 Urine Ketones 2+ (Negative) H 04/06/23 14:10 Urine Blood 3+ (Negative) H 04/06/23 14:10 Urine Nitrate Positive (Negative) H 04/06/23 14:10 Urine Bilirubin Neg (Negative) 04/06/23 14:10 Prot Sulfosalicylic Acd Positive (Negative) 04/06/23 14:10 Urine Urobilinogen 1 mg/dL (Negative) H 04/06/23 14:10 Ur Leukocyte Esterase 2+ (Negative) H 04/06/23 14:10 Urine RBC 5-10 /hpf (0-2) H 04/06/23 14:10 Urine WBC >100 /hpf (0-5) H 04/06/23 14:10 Ur Squamous Epith Cells 0-4 /hpf (0-5) H 04/06/23 14:10 Amorphous Sediment 1+ /hpf 04/06/23 14:10 Urine Bacteria 2+ /hpf (NONE) H 04/06/23 14:10 Discharge Plan Discharge Patient Disposition: Admitted As Inpatient Clinical Impression: Cystitis, Delirium due to general medical condition, Hypoxia Condition: Stable Prescriptions: No Action acetaminophen 325 mg capsule 650 mg PO Q4H PRN (Reason: PAIN/FEVER) finasteride 5 mg tablet 5 mg PO DAILY@20 bisacodyl 10 mg suppository 10 mg [place] DAILY PRN (Reason: Constipation) pantoprazole 40 mg tablet,delayed release (DR/EC) 40 mg PO BID 42 Days Qty: 84 0RF calcium carbonate [Tums] 200 mg calcium (500 mg) Tablet,Chewable 1,000 mg PO QID PRN (Reason: Indigestion) aspirin 81 mg Tablet,Delayed Release (Dr/Ec) 81 mg PO DAILY@08 tamsulosin [Flomax] 0.4 mg capsule 0.4 mg PO QPM Refresh Tears 1 ophthalmic insert eye-both BID polyethylene glycol 3350 [Miralax] 17 gram/dose Powder 4 g PO DAILY PRN (Reason: Constipation) hydrocortisone [Proctosol HC] 2.5 % cream with perineal applicator 1 applic SD QID 21 Days Qty: 30 0RF Referrals: Dominic Adams DO [Primary Care Provider] - Patient Instructions: Hyponatremia (ED), Benzodiazepine Use Disorder (ED), Dementia (ED), Non-diabetic Hypoglycemia (ED), Hypoglycemia in a Person with Diabetes (ED), Concussion (ED), Alcohol Intoxication (ED), Subarachnoid Hemorrhage (GEN), Altered Mental Status (ED) Coding Level of Care Code ED Director Of Aviation for Rachelle Buckner
--- NOTE | 2023-04-06 12:43 | ECG_ITS ---
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 Measurements Intervals [place] Rate: 117 P: 44 [place]: 167 QRS: 33 QRSD: 99 T: 51 QT: 314 QTc: 439 Interpretive Statements SINUS TACHYCARDIA WITH OCCASIONAL SUPRAVENTRICULAR PREMATURE COMPLEXES MINIMAL ST DEPRESSION [0.025+ mV ST DEPRESSION] ABNORMAL RHYTHM ECG Compared to ECG 08/01/2021 00:29:23 ST (T wave) deviation now present Sinus rhythm no longer present Ventricular premature complex(es) no longer present Myocardial infarct finding no longer present Electronically Signed On 04-06-2023 13:31:24 CDT by Ruma Santiago M.D. [id number]
[2023-04-06 13:04] LABS: ABG PCO2 33.1 mmHg (35-45); ABG PH Result 7.45 (7.35-7.45); Alveolar-Arterial Oxygen Gradi 14.3 mmHg (5-10); Arterial Blood Gas Hematocrit 43.5 % (42-52); Blood Gas Allen Test Pos; Blood Gas Operator Identificat POS; Blood Gas Sample Site Radial, left; Blood Gas Sample Type Arterial; Carboxyhemoglobin 1.8 %THgb (0.4-20.1); HCO3 ABG 23.2 mmol/L (22-26); HGB O2 Sat 85.6 % (95-100); Ionized Calcium Level - ABG 1.2 mmol/L (1.1-1.4); Methemoglobin 0.4 % (0.4-1.5); Oxygen Saturation ABG 87.5; PO2 ABG 48.6 mmHg (80.0-100.0); Potassium Level - ABG 3.8 mmol/L (3.5-5.0); Total Hemoglobin 14.2 g/dL (14-18)
--- NOTE | 2023-04-06 13:31 | PC.NURSE ---
Pt hooked up to continuous bedside cardiac monitoring.
[2023-04-06 13:37] LABS: Basophils % 0.3 %; Eosinophils % 0.2 %; Hematocrit 41.8 % (42.0-52.0); Hemoglobin 13.4 g/dL (11.7-16.6); Lymphocytes # 0.5 10^3/uL (0.8-4.8); Lymphocytes % 3.9 %; Mean Corpuscular HGB Conc 32.1 g/dL (30.0-36.0); Mean Corpuscular Hemoglobin 27.3 pg (28.0-34.0); Mean Corpuscular Volume 85.1 fl (80-94); Mean Platelet Volume 10.9 fL (7.4-10.4); Monocytes # 0.9 10^3/uL (0.2-0.9); Monocytes % 7.8 %; Neutrophils # 10.43 10^3/uL (1.8-7.7); Neutrophils % 87.5 %; Nucleated Red Blood Cells % 0 %; Platelet Count 171 10^3/cmm (130-400); Red Blood Count 4.91 10^6/uL (4.1-5.3); Red Cell Distribution Width 13.2 % (12.1-15.1); White Blood Count 11.9 10^3/uL (4.0-10.0)
[2023-04-06 13:56] LABS: Lactic Sepsis W/Reflex 2.1 mmol/L (0.5-2.2); Troponin(5th) Baseline 43 ng/L (0-15)
[2023-04-06 14:08] LABS: Alanine Aminotransferase 14 U/L (0-41); Albumin Level 3.4 g/dL (3.5-5.2); Alkaline Phosphatase 100 U/L (40-130); Aspartate Amino Transferase 13 U/L (0-40); Blood Urea Nitrogen 16 mg/dL (8-23); Calcium 8.5 mg/dL (8.5-10.5); Carbon Dioxide 24 mmol/L (22-29); Chloride 101 mmol/L (98-107); Globulin 2.7 g/dL (1.3-4.6); Glucose 115 mg/dL (65-115); NT Pro B Type Natriuretic Pept 953 pg/mL (0-450); Osmolality Calculated 286 mOsm/kg (285-295); Sodium 137 mmol/L (136-145); Total Bilirubin 0.8 mg/dL (0.15-1.2); Total Protein 6.1 g/dL (6.6-8.7)
--- NOTE | 2023-04-06 14:25 | ECG_ITS ---
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 Measurements Intervals [place] Rate: 115 P: 39 [place]: 163 QRS: 40 QRSD: 94 T: 57 QT: 308 QTc: 427 Interpretive Statements SINUS TACHYCARDIA ABNORMAL RHYTHM ECG Compared to ECG 04/06/2023 12:43:39 ST (T wave) deviation no longer present Electronically Signed On 04-06-2023 14:29:28 CDT by Ruma Santiago M.D. [id number]
[2023-04-06 14:31] LABS: Add Urine Microscopic? YES; Bilirubin Urine Neg (Negative); Blood Urine 3+ (Negative); Glucose Urine UA Norm (Normal); Ketones Urine 2+ (Negative); Leukocyte Esterase Urine 2+ (Negative); Nitrate Urine Positive (Negative); Protein Urine 3+ (Negative); Sulfosalicylic Acid Urine Positive (Negative); Urine Color Yellow (Yellow); Urobilinogen Urine 1 mg/dL (Negative); pH Urine 8 (5-7)
[2023-04-06 14:32] LABS: Amorphous Sediment Urine 1+ /hpf; Bacteria Urine 2+ /hpf; Squamous Epithelial Cell Urine 0-4 /hpf (0-5); WBC Urine >100 /hpf (0-5)
[2023-04-06 14:33] LABS: Add Urine Culture? Yes
[2023-04-06] MEDS: levofloxacin-dextrose 5 % 750 MG/150 ML PREMIX 100 MG IV (14:50)
[2023-04-06 15:21] LABS: Reflex Lactate Order REFLEX LACTIC ORDERD
[2023-04-06 16:07] LABS: Troponin 5 2HR 44.68 ng/L (0-15)
[2023-04-06 16:09] LABS: Troponin 5 2HR Delta 1.68 ABS# (0-10)
[2023-04-06 16:24] LABS: Lactic Acid level (Lactate) 1.9 mmol/L (0.5-2.2)
--- NOTE | 2023-04-06 17:01 | P.HP_ITS ---
Providers/Chief Complaint Admitting Physician: Nixon Shah MD Primary Care Provider: Dominic Adams DO Chief Complaint: possible infection. ams History of Present Illness Ben Ochoa is a 77 year old male COPD, Alzheimer's dementia, insomnia, BPH, GERD, depression and insomnia, came in today with chief complaint of increasing nonproductive cough, shortness of breath , altered mental status, when he came to ER he was found to be febrile with noted Tmax of 102.0, he was also tachycardic. patient is a poor historian, history has been held by ER chart rev iew. X-ray chest had shown: Possible bibasilar/ infiltrate , urinalysis showed features of UTI. His other pertinent labs include: WBC 11.9, H&H :13/41 , PLT 171 , serum sodium 137 serum potassium 4, BUN 16, serum creatinine 1.1, Troponin trend:43-44 Patient received a dose of levofloxacin in the ER. Review of Systems General: Reports: 10 or more systems reviewed and unremarkable except in HPI and below Const: Denies: fever(s), chills, body aches, change in appetite or diaphoresis Card: Denies: chest pain, orthopnea or leg pain with exertion Resp: Reports: dyspnea; Denies: productive cough, wheezing or pain on inspiration GI: Denies: abdominal pain Musc: Denies: back pain, extremity pain or extremity swelling Neuro: Denies: headache(s) Medications/Allergies Home Medications Medication Instructions Recorded Confirmed Last Taken Type acetaminophen 325 mg capsule 650 mg PO Q4H PRN PAIN/FEVER 11/27/19 04/06/23 04/06/23 History finasteride 5 mg tablet 5 mg PO DAILY@11/27/19 04/06/23 04/05/23 History bisacodyl 10 mg rectal suppository 10 mg [place] DAILY PRN Constipation 03/01/20 04/06/23 Unknown History calcium carbonate 200 mg calcium 1,000 mg PO QID PRN Indigestion 12/08/20 04/06/23 04/04/23 History (500 mg) chewable tablet (Tums) aspirin 81 mg tablet,delayed 81 mg PO DAILY@08 01/26/21 04/06/23 04/06/23 History release pantoprazole 40 mg tablet,delayed 40 mg PO BID 6 weeks #84 tabs 03/13/23 04/06/23 04/06/23 Rx release Refresh Tears 1 ophthalmic insert eye-both BID 04/03/23 04/06/23 04/06/23 History tamsulosin 0.4 mg capsule (Flomax) 0.4 mg PO QPM 04/03/23 04/06/23 04/05/23 History hydrocortisone 2.5 % topical cream 1 applic WV QID 3 weeks #30 grams 04/04/23 04/06/23 04/06/23 Rx with perineal applicator (Proctosol HC) polyethylene glycol 3350 17 4 g PO DAILY PRN Constipation 04/04/23 04/06/23 Unknown History gram/dose oral powder (Miralax) Allergies Allergy/AdvReac Type Severity Reaction Status Date / Time tetanus toxoid, adsorbed Allergy Unknown unknown Verified 04/03/23 08:19 PFSH Acute PFSH: Medical History BPH (benign prostatic hyperplasia) COPD (chronic obstructive pulmonary disease) Dementia of frontal lobe type DJD (degenerative joint disease) GERD (gastroesophageal reflux disease) History of 2019 novel coronavirus disease (COVID-19) Major depressive disorder, single episode, in full remission Proteus infection Urinary retention Ventricular premature beats Surgical History History of thoracentesis Chronic right pleural effusion which needed [place] drain which was removed by Dr. Hoover 2015 PEG (percutaneous endoscopic gastrostomy) status Family History Father Cancer Grandfather Myocardial infarction Other CAD (coronary artery disease) Social History Smoking and tobacco status: never smoked Alcohol intake: never Substance/Drug Use: never Lives independently: No Marital status: Vitals/I&O/Wt Last Vital Signs Temp 102.0 F H 04/06/23 12:37 Pulse 113 H 04/06/23 16:23 Resp 14 04/06/23 12:37 BP 151/81 04/06/23 15:00 Pulse Ox 95 04/06/23 15:00 O2 Del Method Aerosol Mask 04/06/23 15:30 O2 Flow Rate 3.5 04/06/23 13:37 Weight last 48 hrs Weight 85.275 kg Physical Exam HENMT: COMMON NORMALS: normocephalic and atraumatic HEAD & SCALP: normocephalic and atraumatic Resp: COMMON NORMALS: clear to auscultation bilaterally AUSCULTATION: clear to auscultation bilaterally Cardio: COMMON NORMALS: regular rate, regular rhythm, S1 normal heart sound present, S2 normal heart sound present, No gallops present (Cardio), No murmurs present (Cardio), No rub (Cardio) and Peripheral pulses 2+ throughout RATE: regular rate RHYTHM: regular rhythm HEART SOUNDS: S1 normal heart sound present and S2 normal heart sound present PERIPHERAL PULSES: Peripheral pulses 2+ throughout GI: COMMON NORMALS: Soft to palpation, non-tender, No hepatosplenomegaly present and no masses AUSCULTATION: Yes normoactive bowel sounds PALPATION: Yes Soft to palpation and Yes No hepatosplenomegaly present RECTAL EXAM: Yes deferred Extremity: COMMON NORMALS: no clubbing, cyanosis or edema and no pedal edema Data 04/06/23 13:27 04/06/23 13:27 Micro: Microbiology 04/06/23 13:21 Blood Culture - Preliminary Blood SPECIMEN COLLECTED 04/06/23 13:13 Blood Culture - Preliminary Blood SPECIMEN COLLECTED A&P Assessment and plan (1) Cystitis: (2) AMS (altered mental status): Qualifiers: Altered mental status type: unspecified Qualified Code(s): R41.82 - Altered mental status, unspecified (3) COPD (chronic obstructive pulmonary disease): Qualifiers: COPD type: unspecified COPD Qualified Code(s): J44.9 - Chronic obstructive pulmonary disease, unspecified (4) Pneumonia: (5) Sepsis: Qualifiers: Acute renal failure type: unspecified Sepsis acute organ dysfunction status: with acute organ dysfunction Sepsis type: sepsis due to unspecified organism Severe sepsis acute organ dysfunction type: acute renal failure Severe sepsis shock status: with septic shock Qualified Code(s): A41.9 - Sepsis, unspecified organism; R65.21 - Severe sepsis with septic shock; N17.9 - Acute kidney failure, unspecified (6) Fever: Plan eBn Ochoa is a 77 year old male COPD, Alzheimer's dementia, insomnia, BPH, GERD, depression and insomnia, came in today with chief complaint of increasing nonproductive cough, shortness of breath , altered mental status. Assessment: Altered mental status likely secondary to UTI ,PNA and sepsis: The patient has Alzheimer's dementia but currently as per the family, his current mentation is not his baseline, it is difficult to understand him, though currently he is responding, appropriately to basic questions. Follow blood culture Urine culture Sputum Gram stain and culture Lactic acid is normal Procalcitonin ABG has been reviewed Monitor mentation Currently he is on broad-spectrum antibiotic Zosyn for UTI Sepsis likely secondary to UTI/ PNA : Patient meets sepsis criteria he is tachycardic tachypneic, has fever of 102, has elevated WBC count, has altered mental status Plan as above. X-ray chest is suggestive of bibasilar infiltrates, patient has new oxygen requi rement does not use oxygen at home. DuoNebs as needed, supplemental oxygen as needed Antibiotic as above History of COPD Plan as above CODE STATUS full code DVT prophylaxis on Lovenox Attestations Medical Necessity Statement*: Patient needs to be in hospital for the management of altered mental status sepsis. Anticipated length of stay greater than 2 midnights Coding Level of Care Code Acute Code for Chg Fwd Diagnoses Cystitis N30.90 AMS (altered mental status) R41.82 Altered mental status type: unspecified COPD (chronic obstructive pulmonary disease) J44.9 COPD type: unspecified COPD Pneumonia J18.9 Sepsis A41.9; R65.21; N17.9 Acute renal failure type: unspecified Sepsis acute organ dysfunction status: with acute organ dysfunction Sepsis type: sepsis due to unspecified organism Severe sepsis acute organ dysfunction type: acute renal failure Severe sepsis shock status: with septic shock Fever R50.9
[2023-04-06] MEDS: enoxaparin 40 mg/0.4 mL Syringe SUBCUT (17:35)
[2023-04-06] MEDS: sodium chloride 0.9% 1,000 ML 100 ML IV (17:36)
[2023-04-06] MEDS: pantoprazole DR 40 mg Tablet PO (17:36)
[2023-04-06] MEDS: piperacillin-tazobactam 3.375 GM in sodium chloride 0.9% (plus) 50 ML IV (17:36)
[2023-04-06] MEDS: docusate sodium 100 mg Capsule PO (17:36)
[2023-04-06] MEDS: tamsulosin 0.4 mg Capsule PO (17:36)
--- NOTE | 2023-04-06 17:55 | ECG_ITS ---
[facility] Test Date: 2023-04-06 Pat Name: Ben Ochoa Department: Room: ICU03 Gender: Male [employer]fter [employer]umbing: : 1945 Requested By: Jesus Pittman Order Number: [id number] Brennon MD: Paulino Rodriguez M.D. Measurements Intervals Lavinia Rate: 108 P: 50 NH: 172 QRS: 52 QRSD: 95 T: 56 QT: 319 QTc: 428 Interpretive Statements SINUS TACHYCARDIA ABNORMAL RHYTHM ECG Compared to ECG 04/06/2023 14:25:54 No significant changes Electronically Signed On 04-06-2023 21:13:55 CDT by Paulino Rodriguez M.D. [id number]
[2023-04-06] MEDS: finasteride 5 mg Tablet PO (19:55)
[2023-04-06 20:00] LABS: Troponin 5 6HR 44.41 ng/L (0-15); Troponin 5 6HR Delta 1.41 ng/L (0-12)
[2023-04-06] MEDS: acetaminophen 325 mg Tablet 650 MG PO (20:06)
[2023-04-07] VITALS (32 sets, daily range): BP systolic 102–153; BP diastolic 61–91; PULSE 84–112; RESP 16–36; TEMP 37.1–38.2; O2SAT 89–98
[2023-04-07] MEDS: piperacillin-tazobactam 3.375 GM in sodium chloride 0.9% (plus) 50 ML IV ×3 (01:28→17:54)
[2023-04-07] MEDS: sodium chloride 0.9% 1,000 ML 100 ML IV (03:50)
[2023-04-07 04:43] LABS: Basophils % 0.4 %; Eosinophils % 0.1 %; Hematocrit 39.8 % (42.0-52.0); Hemoglobin 12.4 g/dL (11.7-16.6); Lymphocytes % 10.2 %; Mean Corpuscular HGB Conc 31.2 g/dL (30.0-36.0); Mean Corpuscular Hemoglobin 26.8 pg (28.0-34.0); Mean Corpuscular Volume 86.1 fl (80-94); Mean Platelet Volume 11.8 fL (7.4-10.4); Monocytes % 10.2 %; Neutrophils # 7.51 10^3/uL (1.8-7.7); Nucleated Red Blood Cells % 0 %; Platelet Count 159 10^3/cmm (130-400); Red Blood Count 4.62 10^6/uL (4.1-5.3); Red Cell Distribution Width 13.5 % (12.1-15.1); White Blood Count 9.5 10^3/uL (4.0-10.0)
[2023-04-07 05:07] LABS: Alanine Aminotransferase 12 U/L (0-41); Albumin Level 3.1 g/dL (3.5-5.2); Alkaline Phosphatase 100 U/L (40-130); Anion Gap 13.3 (5-19); Aspartate Amino Transferase 11 U/L (0-40); Blood Urea Nitrogen 18 mg/dL (8-23); Carbon Dioxide 26 mmol/L (22-29); Chloride 99 mmol/L (98-107); Globulin 3.4 g/dL (1.3-4.6); Glucose 95 mg/dL (65-115); Magnesium 1.6 mg/dL (1.7-2.3); Osmolality Calculated 280 mOsm/kg (285-295); Potassium 4.3 mmol/L (3.5-5.1); Sodium 134 mmol/L (136-145); Total Protein 6.5 g/dL (6.6-8.7)
[2023-04-07 05:12] LABS: Procalcitonin 1.92 ng/mL (0-0.5)
[2023-04-07] MEDS: aspirin 81 mg EC Tablet PO (08:12)
[2023-04-07] MEDS: pantoprazole DR 40 mg Tablet PO ×2 (08:12→17:54)
[2023-04-07] MEDS: docusate sodium 100 mg Capsule PO (08:12)
[2023-04-07] MEDS: acetaminophen 325 mg Tablet 650 MG PO ×2 (09:21→17:53)
[2023-04-07] MEDS: magnesium sulfate premix 2 GM/50 ML PIGGYBACK IV (10:51)
--- NOTE | 2023-04-07 14:50 | PC.NURSE ---
report given and transfer to room 278 at this time
--- NOTE | 2023-04-07 15:00 | P.PN_ITS ---
Subjective Subjective: Patient was seen and examined this morning overall doing better was afebrile overnight, has maintained decent MAP, currently holding good conversation, his other vitals and labs have been reviewed. Medications: Medication Review Details: Generic Name Dose Route Start Last Admin Trade Name Freq PRN Reason Stop Dose Admin Acetaminophen 650 mg 04/06/23 16:54 04/07/23 09:21 Acetaminophen 32 5 Mg Tablet PO 650 mg Q6H PRN Administration Mild/Mod Pain Or Temp >/= 101 Aspirin 81 mg 04/07/23 08:00 04/07/23 08:12 Aspirin 81 Mg Ec Tablet PO 81 mg DAILY@08 TD Administration Docusate Sodium 100 mg 04/06/23 18:00 04/07/23 08:12 Docusate Sodium 100 Mg Capsule PO 100 mg BID TD Administration Enoxaparin Sodium 40 mg 04/06/23 18:00 04/06/23 17:35 Enoxaparin 40 Mg /0.4 Ml Syringe SUBCUT 40 mg Q24H TD Administration Finasteride 5 mg 04/06/23 20:00 04/06/23 19:55 Finasteride 5 Mg Tablet PO 5 mg DAILY@20 TD Administration Piperacillin Sod/T azobactam 50 mls @ 12.5 mls /hr 04/06/23 18:00 04/07/23 09:21 Sod 3.375 gm/ So dium Chloride IV 12.5 mls/hr Q8H TD Administration Protocol Non-Formulary Medi cation 1 applic 04/06/23 17:00 04/07/23 08:13 Hydrocortisone [ Proctosol Hc] AL Not Given QID [facility] Pantoprazole Sodiu m 40 mg 04/06/23 18:00 04/07/23 08:[address] 40 Mg Tablet PO 40 mg BID TD Administration Tamsulosin HCl 0.4 mg 04/06/23 18:00 04/06/23 17:36 Tamsulosin 0.4 M g Capsule PO 0.4 mg QPM TD Administration Vitals/I&O/Wt Last Vital Signs Temp 102.0 F H 04/06/23 12:37 Pulse 104 H 04/07/23 12:00 Resp 21 H 04/07/23 12:00 BP 131/63 04/07/23 12:00 Pulse Ox 97 04/07/23 12:00 O2 Del Method Nasal Cannula 04/07/23 10:44 O2 Flow Rate 2 04/07/23 10:44 04/07/23 04/07/23 04/07/23 06:59 14:59 22:59 Intake Total 1180 / 1710 550 / 550 Output Total 600 / 600 Balance 580 / 1110 550 / 550 Weight last 48 hrs Weight 85.275 kg Physical Exam 2 HENMT: COMMON NORMALS: normocephalic and atraumatic HEAD & SCALP: normocephalic and atraumatic Resp: COMMON NORMALS: clear to auscultation bilaterally AUSCULTATION: clear to auscultation bilaterally Cardio: COMMON NORMALS: regular rate, regular rhythm, S1 normal heart sound present, S2 normal heart sound present, No gallops present (Cardio), No murmurs present (Cardio), No rub (Cardio) and Peripheral pulses 2+ throughout RATE: regular rate RHYTHM: regular rhythm HEART SOUNDS: S1 normal heart sound p resent and S2 normal heart sound present PERIPHERAL PULSES: Peripheral pulses 2+ throughout GI: COMMON NORMALS: Soft to palpation, non-tender, No hepatosplenomegaly present and no masses AUSCULTATION: Yes normoactive bowel sounds PALPATION: Yes Soft to palpation and Yes No hepatosplenomegaly present RECTAL EXAM: Yes deferred Extremity: COMMON NORMALS: no clubbing, cyanosis or edema and no pedal edema Data 04/07/23 03:06 04/07/23 03:06 Micro: Microbiology 04/06/23 13:21 Blood Culture - Preliminary Blood NEGATIVE TO DATE 04/06/23 13:13 Blood Culture - Preliminary Blood NEGATIVE TO DATE 04/06/23 14:10 Urine Culture - Preliminary Urine,Clean Catch Gram Negative Rods A&P Assessment and plan (1) Cystitis: (2) AMS (altered mental status): Qualifiers: Altered mental status type: unspecified Qualified Code(s): R41.82 - Altered mental status, unspecified (3) COPD (chronic obstructive pulmonary disease): Qualifiers: COPD type: unspecified COPD Qualified Code(s): J44.9 - Chronic obstructive pulmonary disease, unspecified (4) Pneumonia: (5) Sepsis: Qualifiers: Acute renal failure type: unspecified Sepsis acute organ dysfunction status: with acute organ dysfunction Sepsis type: sepsis due to unspecified organism Severe sepsis acute organ dysfunction type: acute renal failure Severe sepsis shock status: with septic shock Qualified Code(s): A41.9 - Sepsis, unspecified organism; R65.21 - Severe sepsis with septic shock; N17.9 - Acute kidney failure, unspecified (6) Fever: Plan Ben Ochoa is a 77 year old male COPD, Alzheimer's dementia, insomnia, BPH, G ERD, depression and insomnia, came in today with chief complaint of increasing nonproductive cough, shortness of breath , altered mental status. Assessment: Altered mental status likely secondary to UTI ,PNA and sepsis: The patient has Alzheimer's dementia but currently as per the family, his current mentation is not his baseline, it is difficult to understand him, though currently he is responding, appropriately to basic questions. Follow blood culture Urine culture Sputum Gram stain and culture Lactic acid is normal Procalcitonin ABG has been reviewed Monitor mentation Currently he is on broad-spectrum antibiotic Zosyn for UTI Sepsis likely secondary to UTI/ PNA : Patient meets sepsis criteria he is tachycardic tachypneic, has fever of 102, has elevated WBC count, has altered mental status Plan as above. X-ray chest is suggestive of bibasilar infiltrates, patient has new oxygen requirement does not use oxygen at home. DuoNebs as needed, supplemental oxygen as needed Antibiotic as above History of COPD Plan as above CODE STATUS full code DVT prophylaxis on Lovenox Attestations Medical Necessity Statement*: Needs to be in hospital for IV antibiotics. Coding Level of Care Code Acute Code for Chg Fwd Diagnoses Cystitis N30.90 AMS (altered mental status) R41.82 Altered mental status type: unspecified COPD (chronic obstructive pulmonary disease) J44.9 COPD type: unspecified COPD Pneumonia J18.9 Sepsis A41.9; R65.21; N17.9 Acute renal failure type: unspecified Sepsis acute organ dysfunction status: with acute organ dysfunction Sepsis type: sepsis due to unspecified organism Severe sepsis acute organ dysfunction type: acute renal failure Severe sepsis shock status: with septic shock Fever R50.9
[2023-04-07] MEDS: tamsulosin 0.4 mg Capsule PO (17:53)
[2023-04-07] MEDS: enoxaparin 40 mg/0.4 mL Syringe SUBCUT (17:55)
[2023-04-07] MEDS: finasteride 5 mg Tablet PO (20:59)
[2023-04-08] VITALS (10 sets, daily range): BP systolic 125–151; BP diastolic 60–89; PULSE 78–101; RESP 15–20; TEMP 36.6–36.9; O2SAT 91–97
[2023-04-08] MEDS: piperacillin-tazobactam 3.375 GM in sodium chloride 0.9% (plus) 50 ML IV ×2 (03:03→10:00)
[2023-04-08 03:59] LABS: Basophils % 0.4 %; Eosinophils # 0.1 10^3/uL (0.0-0.8); Eosinophils % 0.9 %; Hematocrit 38.9 % (42.0-52.0); Hemoglobin 12.6 g/dL (11.7-16.6); Lymphocytes % 11.6 %; Mean Corpuscular HGB Conc 32.4 g/dL (30.0-36.0); Mean Corpuscular Hemoglobin 27.7 pg (28.0-34.0); Mean Corpuscular Volume 85.5 fl (80-94); Mean Platelet Volume 11.1 fL (7.4-10.4); Monocytes # 0.8 10^3/uL (0.2-0.9); Monocytes % 9.7 %; Neutrophils # 6.49 10^3/uL (1.8-7.7); Neutrophils % 76.8 %; Nucleated Red Blood Cells % 0 %; Platelet Count 169 10^3/cmm (130-400); Red Blood Count 4.55 10^6/uL (4.1-5.3); Red Cell Distribution Width 13.7 % (12.1-15.1); White Blood Count 8.5 10^3/uL (4.0-10.0)
[2023-04-08 04:22] LABS: Alanine Aminotransferase 12 U/L (0-41); Alkaline Phosphatase 114 U/L (40-130); Anion Gap 11.9 (5-19); Aspartate Amino Transferase 14 U/L (0-40); Blood Urea Nitrogen 21 mg/dL (8-23); Calcium 8.8 mg/dL (8.5-10.5); Carbon Dioxide 27 mmol/L (22-29); Chloride 102 mmol/L (98-107); Globulin 3.4 g/dL (1.3-4.6); Glucose 102 mg/dL (65-115); Osmolality Calculated 287 mOsm/kg (285-295); Potassium 3.9 mmol/L (3.5-5.1); Sodium 137 mmol/L (136-145); Total Bilirubin 0.5 mg/dL (0.15-1.2); Total Protein 6.4 g/dL (6.6-8.7)
[2023-04-08] MEDS: docusate sodium 100 mg Capsule PO (08:06)
[2023-04-08] MEDS: aspirin 81 mg EC Tablet PO (08:06)
[2023-04-08] MEDS: pantoprazole DR 40 mg Tablet PO ×2 (08:06→18:16)
[2023-04-08] MEDS: acetaminophen 325 mg Tablet 650 MG PO (17:27)
--- NOTE | 2023-04-08 17:33 | PM.PN ---
Subjective Subjective: Patient was seen and examined this morning has been afebrile,no acute events. Medications: Medication Review Details: Generic Name Dose Route Start Last Admin Trade Name [place] PRN Reason Stop Dose Admin Acetaminophen 650 mg 04/06/23 16:54 04/07/23 09:21 Acetaminophen 32 5 Mg Tablet PO 650 mg Q6H PRN Administration Mild/Mod Pain Or Temp >/= 101 Aspirin 81 mg 04/07/23 08:00 04/07/23 08:12 Aspirin 81 Mg Ec Tablet PO 81 mg DAILY@08 TD Administration Docusate Sodium 100 mg 04/06/23 18:00 04/07/23 08:12 Docusate Sodium 100 Mg Capsule PO 100 mg BID TD Administration Enoxaparin Sodium 40 mg 04/06/23 18:00 04/06/23 17:35 Enoxaparin 40 Mg /0.4 Ml Syringe SUBCUT 40 mg Q24H TD Administration Finasteride 5 mg 04/06/23 20:00 04/06/23 19:55 Finasteride 5 Mg Tablet PO 5 mg DAILY@20 TD Administration Piperacillin Sod/T azobactam 50 mls @ 12.5 mls /hr 04/06/23 18:00 04/07/23 09:21 Sod 3.375 gm/ So dium Chloride IV 12.5 mls/hr Q8H TD Administration Protocol Non-Formulary Medi cation 1 applic 04/06/23 17:00 04/07/23 08:13 Hydrocortisone [ Proctosol Hc] [place] Not Given QID TD Pantoprazole Sodiu m 40 mg 04/06/23 18:00 04/07/23 08:[address] 40 Mg Tablet PO 40 mg BID TD Administration Tamsulosin HCl 0.4 mg 04/06/23 18:00 04/06/23 17:36 Tamsulosin 0.4 M g Capsule PO 0.4 mg QPM TD Administration Vitals/I&O/Wt Last Vital Signs Temp 97.8 F 04/08/23 15:26 Pulse 89 04/08/23 15:26 Resp 16 04/08/23 15:26 BP 151/89 04/08/23 15:26 Pulse Ox 96 04/08/23 15:26 O2 Del Method Nasal Cannula 04/08/23 15:26 O2 Flow Rate 2 04/08/23 08:00 04/08/23 04/08/23 04/08/23 06:59 14:59 22:59 Intake Total 460 / 460 Output Total 1300 / 1300 Balance -1300 / 910 460 / 460 Physical Exam HENMT: COMMON NORMALS: normocephalic and atraumatic HEAD & SCALP: normocephalic and atraumatic Resp: COMMON NORMALS: clear to auscultation bilaterally AUSCULTATION: clear to auscultation bilaterally Cardio: COMMON NORMALS: regular rate, regular rhythm, S1 normal heart sound present, S2 normal heart sound present, No gallops present (Cardio), No murmurs present (Cardio), No rub (Cardio) and Peripheral pulses 2+ throughout RATE: regular rate RHYTHM: regular rhythm HEART SOUNDS: S1 normal heart sound present and S2 normal heart sound present PERIPHERAL PULSES: Peripheral pulses 2+ throughout GI: COMMON NORMALS: Soft to palpation, non-tender, No hepatosplenomegaly present and no masses AUSCULTATION: Yes normoactive bowel sounds PALPATION: Yes Soft to palpation and Yes No hepatosplenomegaly present RECTAL EXAM: Yes deferred Extremity: COMMON NORMALS: no clubbing, cyanosis or edema and no pedal edema Data 04/08/23 03:32 04/08/23 03:32 Micro: Microbiology 04/06/23 14:10 Urine Culture - Final Urine,Clean Catch Proteus mirabilis 04/06/23 13:21 Blood Culture - Preliminary Blood NEGATIVE TO DATE 04/06/23 13:13 Blood Culture - Preliminary Blood NEGATIVE TO DATE A&P Assessment and plan (1) Cystitis: (2) AMS (altered mental status): Qualifiers: Altered mental status type: unspecified Qualified Code(s): R41.82 - Altered mental status, unspecified (3) COPD (chronic obstructive pulmonary disease): Qualifiers: COPD type: unspecified COPD Qualified Code(s): J44.9 - Chronic obstructive pulmonary disease, unspecified (4) Pneumonia: (5) Sepsis: Qualifiers: Acute renal failure type: unspecified Sepsis acute organ dysfunction status: with acute organ dysfunction Sepsis type: sepsis due to unspecified organism Severe sepsis acute organ dysfunction type: acute renal failure Severe sepsis shock status: with septic shock Qualified Code(s): A41.9 - Sepsis, unspecified organism; R65.21 - Severe sepsis with septic shock; N17.9 - Acute kidney failure, unspecified (6) Fever: Plan Ben Ochoa is a 77 year old male COPD, Alzheimer's dementia, insomnia, BPH, GERD, depression and insomnia, came in today with chief complaint of increasing nonproductive cough, shortness of breath , altered mental status. Assessment: Altered mental status likely secondary to UTI ,PNA and sepsis: Resolved Blood culture:Negative Urine culture: PM Sputum Gram stain and culture Lactic acid is normal Procalcitonin: 1.92 ABG has been reviewed Monitor mentation Was on Zosyn for UTI has been switched to rocephin. Sepsis likely secondary to UTI/ PNA : Patient meets sepsis criteria he is tachycardic tachypneic, has fever of 102, has elevated WBC count, has altered mental status:Currently resolved Plan as above. X-ray chest is suggestive of bibasilar infiltrates, patient has new oxygen requirement does not use oxygen at home. DuoNebs as needed, supplemental oxygen as needed Antibiotic as above History of COPD Plan as above CODE STATUS full code DVT prophylaxis on Lovenox Disposition: Transfer to halfway in the morning. Attestations Medical Necessity Statement*: Needs to be in hospital for I.V Abxs Coding Level of Care Code Acute Code for [facility] Fwd Diagnoses Cystitis N30.90 AMS (altered mental status) R41.82 Altered mental status type: unspecified COPD (chronic obstructive pulmonary disease) J44.9 COPD type: unspecified COPD Pneumonia J18.9 Sepsis A41.9; R65.21; N17.9 Acute renal failure type: unspecified Sepsis acute organ dysfunction status: with acute organ dysfunction Sepsis type: sepsis due to unspecified organism Severe sepsis acute organ dysfunction type: acute renal failure Severe sepsis shock status: with septic shock Fever R50.9
[2023-04-08] MEDS: tamsulosin 0.4 mg Capsule PO (18:16)
[2023-04-08] MEDS: enoxaparin 40 mg/0.4 mL Syringe SUBCUT (18:16)
[2023-04-08] MEDS: finasteride 5 mg Tablet PO (20:12)
[2023-04-09] MEDS: acetaminophen 325 mg Tablet 650 MG PO ×2 (01:48→08:53)
[2023-04-09 04:28] VITALS: BP 160/78; PULSE 97; RESP 19; TEMP 36.7; O2SAT 94
[2023-04-09 05:35] LABS: Alanine Aminotransferase 12 U/L (0-41); Albumin Level 2.9 g/dL (3.5-5.2); Alkaline Phosphatase 125 U/L (40-130); Anion Gap 14.5 (5-19); Aspartate Amino Transferase 13 U/L (0-40); Blood Urea Nitrogen 21 mg/dL (8-23); Calcium 8.8 mg/dL (8.5-10.5); Carbon Dioxide 24 mmol/L (22-29); Chloride 103 mmol/L (98-107); Globulin 3.8 g/dL (1.3-4.6); Glucose 96 mg/dL (65-115); Osmolality Calculated 287 mOsm/kg (285-295); Potassium 4.5 mmol/L (3.5-5.1); Sodium 137 mmol/L (136-145); Total Bilirubin 0.4 mg/dL (0.15-1.2); Total Protein 6.7 g/dL (6.6-8.7)
[2023-04-09 05:39] VITALS: PULSE 86
[2023-04-09] MEDS: cefTRIAXone 1,000 MG in sodium chloride 0.9% (plus) 50 ML 100 MG IV (06:16)
[2023-04-09 06:17] LABS: Basophils % 0.5 %; Eosinophils # 0.2 10^3/uL (0.0-0.8); Eosinophils % 3.2 %; Hemoglobin 12.7 g/dL (11.7-16.6); Lymphocytes # 1.2 10^3/uL (0.8-4.8); Lymphocytes % 15.5 %; Mean Corpuscular Hemoglobin 27.1 pg (28.0-34.0); Mean Corpuscular Volume 87.6 fl (80-94); Mean Platelet Volume 11.9 fL (7.4-10.4); Monocytes # 0.9 10^3/uL (0.2-0.9); Monocytes % 12.4 %; Neutrophils # 5.16 10^3/uL (1.8-7.7); Neutrophils % 67.9 %; Nucleated Red Blood Cells % 0 %; Platelet Count 199 10^3/cmm (130-400); Red Blood Count 4.68 10^6/uL (4.1-5.3); Red Cell Distribution Width 13.8 % (12.1-15.1); White Blood Count 7.6 10^3/uL (4.0-10.0)
[2023-04-09 07:05] VITALS: BP 137/93; PULSE 76; RESP 16; TEMP 36.8; O2SAT 96
[2023-04-09 07:52] VITALS: PULSE 96; O2SAT 94
[2023-04-09 08:45] LABS: Oxygen Device NC
[2023-04-09] MEDS: aspirin 81 mg EC Tablet PO (08:53)
[2023-04-09] MEDS: pantoprazole DR 40 mg Tablet PO (08:53)
[2023-04-09 11:03] LABS: SARS Covid-2 Antigen negative (Negative)
[2023-04-09 11:09] VITALS: BP 133/73; PULSE 69; RESP 15; TEMP 36.4; O2SAT 96
--- NOTE | 2023-04-09 11:24 | PM.DCS ---
Discharge Providers Date of Admission: 04/06/23 14:45 Date of Discharge: April 09, 2023 Attending Provider at Admission: Nixon Shah MD Attending Provider at Discharge: Song Jones MD Primary Care Provider: Dominic Adams DO Diagnoses at Discharge Discharge Diagnosis (1) Cystitis: Status: Acute (2) AMS (altered mental status): Status: Acute Qualifiers: Altered mental status type: unspecified Qualified Code(s): R41.82 - Altered mental status, unspecified (3) COPD (chronic obstructive pulmonary disease): Status: Chronic Qualifiers: COPD type: unspecified COPD Qualified Code(s): J44.9 - Chronic obstructive pulmonary disease, unspecified (4) Pneumonia: Status: Inactive (5) Sepsis: Status: Resolved Qualifiers: Acute renal failure type: unspecified Sepsis acute organ dysfunction status: with acute organ dysfunction Sepsis type: sepsis due to unspecified organism Severe sepsis acute organ dysfunction type: acute renal failure Severe sepsis shock status: with septic shock Qualified Code(s): A41.9 - Sepsis, unspecified organism; R65.21 - Severe sepsis with septic shock; N17.9 - Acute kidney failure, unspecified (6) Fever: Status: Acute Reason for Visit Reason for Visit: possible infection. ams Hospital Course Hospital Course 77-year-old male who was admitted for management of sepsis related to UTI and pneumonia, patient's symptoms improved he was kept on IV antibiotics, cultures remain negative sputum culture of Proteus which is pansensitive, febrile events improved after initiation of IV antibiotics, patient does have COPD, Alzheimer's dementia insomnia BPH chronic indwelling catheter, GERD depression and insomnia his shortness of breath and cough has improved significantly throughout hospitalization. He will go back to snf on 04/09. At the time of discharge white count 7.6, afebrile, hemodynamically stable, patient is able to tolerate diet. Patient is full code Patient will get levofloxacin 7-day course Physical Exam Narrative: Awake and alert Madrigal catheter with clear urine Abdomen soft Patient is awake and alert able to order food from the menu for his lunch Pleasant and cooperative Full code GCS 15 Discharge Data Studies Completed and Pending Completed Studies During Hospitalization Category Date Time Status XR chest 1V portable [id number] Stat Exams 04/06/23 12:33 Completed Pending at discharge Category Date Time Status Blood Culture Stat Lab 04/06/23 13:21 Results Radiology Impressions Chest X-Ray 04/06/23 12:33 IMPRESSION: 1. Bibasilar atelectasis versus infiltrate. 2. Emphysematous changes. 3. Biapical probable pleuroparenchymal fibrosis again seen. Laboratory Results WBC 7.6 10^3/uL (4.0-10.0) 04/09/23 04:47 RBC 4.68 10^6/uL (4.1-5.3) 04/09/23 04:47 Hgb 12.7 g/dL (11.7-16.6) 04/09/23 04:47 Hct 41.0 % (42.0-52.0) L 04/09/23 04:47 MCV 87.6 fl (80-94) 04/09/23 04:47 MCH 27.1 pg (28.0-34.0) L 04/09/23 04:47 MCHC 31.0 g/dL (30.0-36.0) 04/09/23 04:47 RDW 13.8 % (12.1-15.1) 04/09/23 04:47 Plt Count 199 10^3/cmm (130-400) 04/09/23 04:47 MPV 11.9 fL (7.4-10.4) H 04/09/23 04:47 Neut % (Auto) 67.9 % 04/09/23 04:47 Lymph % (Auto) 15.5 % 04/09/23 04:47 [place] % (Auto) 12.4 % 04/09/23 04:47 Eos % (Auto) 3.2 % 04/09/23 04:47 Baso % (Auto) 0.5 % 04/09/23 04:47 Neut # (Auto) 5.16 10^3/uL (1.8-7.7) 04/09/23 04:47 Lymph # (Auto) 1.2 10^3/uL (0.8-4.8) 04/09/23 04:47 [place] # (Auto) 0.9 10^3/uL (0.2-0.9) 04/09/23 04:47 Eos # (Auto) 0.2 10^3/uL (0.0-0.8) 04/09/23 04:47 Baso # (Auto) 0.0 10^3/uL (0.0-0.1) 04/09/23 04:47 Nucleated RBC % (auto) 0 % 04/09/23 04:47 Nucleated RBCs # 0.0 /100WBC 04/09/23 04:47 Specimen Type Arterial 04/06/23 12:53 Sample Site Radial, left 04/06/23 12:53 ABG pH 7.45 (7.35-7.45) 04/06/23 12:53 ABG pCO2 33.1 mmHg (35-45) L 04/06/23 12:53 ABG pO2 48.6 mmHg (80.0-100.0) L 04/06/23 12:53 ABG HCO3 23.2 mmol/L (22-26) 04/06/23 12:53 ABG O2 Saturation 87.5 04/06/23 12:53 ABG Base Excess 0.0 mmol/L (-2.0-2.0) 04/06/23 12:53 Piotr Test Pos 04/06/23 12:53 A-a O2 Gradient 14.3 mmHg (5-10) H 04/06/23 12:53 Hematocrit 43.5 % (42-52) 04/06/23 12:53 Hgb O2 Saturation 85.6 % (95-100) L 04/06/23 12:53 Carboxyhemoglobin 1.8 %THgb (0.4-20.1) 04/06/23 12:53 Methemoglobin 0.4 % (0.4-1.5) 04/06/23 12:53 Total Hemoglobin 14.2 g/dL (14-18) 04/06/23 12:53 Sodium 137.0 mmol/L (131-143) 04/06/23 12:53 Potassium 3.8 mmol/L (3.5-5.0) 04/06/23 12:53 Glucose 127.0 mg/dL (70-115) H 04/06/23 12:53 Ionized Calcium 1.2 mmol/L (1.1-1.4) 04/06/23 12:53 O2 Delivery Device Nc 04/06/23 12:53 FiO2 28.0 % 04/06/23 12:53 Implementation Technician ID Pos 04/06/23 12:53 Sodium 137 mmol/L (136-145) 04/09/23 04:47 Potassium 4.5 mmol/L (3.5-5.1) 04/09/23 04:47 Chloride 103 mmol/L (98-107) 04/09/23 04:47 Carbon Dioxide 24 mmol/L (22-29) 04/09/23 04:47 Anion Gap 14.5 (5-19) 04/09/23 04:47 BUN 21 mg/dL (8-23) 04/09/23 04:47 Creatinine 0.7 mg/dL (0.7-1.2) 04/09/23 04:47 GFR Calculation Not Reportable 04/09/23 04:47 Glucose 96 mg/dL (65-115) 04/09/23 04:47 Calculated Osmolality 287 mOsm/kg (285-295) 04/09/23 04:47 Lactic Acid 2.1 mmol/L (0.5-2.2) 04/06/23 13:27 Lactic Acid (Sepsis) 1.9 mmol/L (0.5-2.2) 04/06/23 15:52 Calcium 8.8 mg/dL (8.5-10.5) 04/09/23 04:47 Magnesium 1.6 mg/dL (1.7-2.3) L 04/07/23 03:06 Total Bilirubin 0.4 mg/dL (0.15-1.2) 04/09/23 04:47 AST 13 U/L (0-40) 04/09/23 04:47 ALT 12 U/L (0-41) 04/09/23 04:47 Alkaline Phosphatase 125 U/L (40-130) 04/09/23 04:47 Troponin T Baseline 43 ng/L (0-15) H 04/06/23 13:27 Troponin T 120 Minute 44.68 ng/L (0-15) H 04/06/23 15:26 Delta Troponin T 1.68 ABS# (0-10) 04/06/23 15:26 Troponin T Hi Sens 6Hr 44.41 ng/L (0-15) H 04/06/23 19:34 Troponin T Hi Sens 6Hr Delta 1.41 ng/L (0-12) 04/06/23 19:34 NT-Pro-B Natriuret Pep 953 pg/mL (0-450) H 04/06/23 13:27 Total Protein 6.7 g/dL (6.6-8.7) 04/09/23 04:47 Albumin 2.9 g/dL (3.5-5.2) L 04/09/23 04:47 Globulin 3.8 g/dL (1.3-4.6) 04/09/23 04:47 Procalcitonin 1.92 ng/mL (0-0.5) H 04/07/23 03:06 Urine Color Yellow (Yellow) 04/06/23 14:10 Urine Appearance Sl cloudy (CLEAR) A 04/06/23 14:10 Urine pH 8 (5-7) H 04/06/23 14:10 Ur Specific [place] 1.010 (1.005-1.030) 04/06/23 14:10 Urine Protein 3+ (Negative) H 04/06/23 14:10 Urine Glucose (UA) Norm (Normal) 04/06/23 14:10 Urine Ketones 2+ (Negative) H 04/06/23 14:10 Urine Blood 3+ (Negative) H 04/06/23 14:10 Urine Nitrate Positive (Negative) H 04/06/23 14:10 Urine Bilirubin Neg (Negative) 04/06/23 14:10 Prot Sulfosalicylic Acd Positive (Negative) 04/06/23 14:10 Urine Urobilinogen 1 mg/dL (Negative) H 04/06/23 14:10 Ur Leukocyte Esterase 2+ (Negative) H 04/06/23 14:10 Urine RBC 5-10 /hpf (0-2) H 04/06/23 14:10 Urine WBC >100 /hpf (0-5) H 04/06/23 14:10 Ur Squamous Epith Cells 0-4 /hpf (0-5) H 04/06/23 14:10 Amorphous Sediment 1+ /hpf 04/06/23 14:10 Urine Bacteria 2+ /hpf (NONE) H 04/06/23 14:10 SARS-CoV-2 Ag (Rapid) negative (Negative) 04/09/23 10:35 Vitals Last Vital Signs Temp 97.6 F 04/09/23 11:09 Pulse 69 04/09/23 11:09 Resp 15 04/09/23 11:09 BP 133/73 04/09/23 11:09 Pulse Ox 96 04/09/23 11:09 O2 Del Method Nasal Cannula 04/09/23 11:09 O2 Flow Rate 2 04/09/23 08:00 Discharge Plan Discharge Patient Disposition: Xfer SNF Condition: Stable Prescriptions: New albuterol sulfate 90 mcg/actuation HFA aerosol inhaler 2 inh inhalation Q8H PRN (Reason: shortness of breath or wheezing) Qty: 8.5 3RF levofloxacin 750 mg tablet 750 mg PO DAILY 7 Days Qty: 7 0RF Continued acetaminophen 325 mg capsule 650 mg PO Q4H PRN (Reason: PAIN/FEVER) finasteride 5 mg tablet 5 mg PO DAILY@20 bisacodyl 10 mg suppository 10 mg DC DAILY PRN (Reason: Constipation) pantoprazole 40 mg tablet,delayed release (DR/EC) 40 mg PO BID 42 Days Qty: 84 0RF calcium carbonate [Tums] 200 mg calcium (500 mg) Tablet,Chewable 1,000 mg PO QID PRN (Reason: Indigestion) aspirin 81 mg Tablet,Delayed Release (Dr/Ec) 81 mg PO DAILY@08 tamsulosin [Flomax] 0.4 mg capsule 0.4 mg PO QPM Refresh Tears 1 ophthalmic insert eye-both BID polyethylene glycol 3350 [Miralax] 17 gram/dose Powder 4 g PO DAILY PRN (Reason: Constipation) hydrocortisone [Proctosol HC] 2.5 % cream with perineal applicator 1 applic DC QID 21 Days Qty: 30 0RF Discharge Orders: Discharge Order (Routine); Ordered 04/09/23 Ordered By: Song Jones Referrals: Dominic Adams DO [Primary Care Provider] - Patient Instructions: Hyponatremia (ED), Benzodiazepine Use Disorder (ED), Dementia (ED), Non-diabetic Hypoglycemia (ED), Hypoglycemia in a Person with Diabetes (ED), Concussion (ED), Alcohol Intoxication (ED), Subarachnoid Hemorrhage (GEN), Altered Mental Status (ED), Opioid Safety Discharge Attestations Time Spent in Discharge Care*: greater than 30 min Status at Discharge: Cognitive status at discharge: cognitively intact, Behavioral status at discharge: cooperative, Quality Metrics Clinical Quality Measures [ No reported AMI, CVA or VTE this stay] Coding Level of Care Code Acute Code for Chg Fwd Diagnoses Cystitis N30.90 AMS (altered mental status) R41.82 Altered mental status type: unspecified COPD (chronic obstructive pulmonary disease) J44.9 COPD type: unspecified COPD Pneumonia J18.9 Sepsis A41.9; R65.21; N17.9 Acute renal failure type: unspecified Sepsis acute organ dysfunction status: with acute organ dysfunction Sepsis type: sepsis due to unspecified organism Severe sepsis acute organ dysfunction type: acute renal failure Severe sepsis shock status: with septic shock Fever R50.9
--- NOTE | 2023-04-09 12:21 | PC.NURSE ---
Report to [facility]: Report called to Poornima at [facility].
== END 2023-04-09 13:59 | disposition skilled nursing facility (03) | DRG 871 ==
LOC: ER 15:18 → ICU 15:21 → MEDSURG 04-07 15:03
PROVIDERS: Internal Medicine; Admitting Provider Internal Medicine; Emergency Provider Family Medicine; PCP Internal Medicine; Visit Provider Internal Medicine
DX: A41.9 Sepsis, unspecified organism (principal); J18.9 Pneumonia, unspecified organism; R65.21 Severe sepsis with septic shock; N17.9 Acute kidney failure, unspecified; F05 Delirium due to known physiological condition; G31.09 Other frontotemporal neurocognitive disorder; F02.80 Dementia in other diseases classified elsewhere, unspecified severity, without behavioral disturbance, psychotic disturbance, mood disturbance, and anxiety; G30.9 Alzheimer's disease, unspecified; N40.0 Benign prostatic hyperplasia without lower urinary tract symptoms; J44.9 Chronic obstructive pulmonary disease, unspecified; K21.9 Gastro-esophageal reflux disease without esophagitis; Z86.16 Personal history of COVID-19; F32.5 Major depressive disorder, single episode, in full remission; N30.90 Cystitis, unspecified without hematuria; R09.02 Hypoxemia; Z79.82 Long term (current) use of aspirin
CPT/HCPCS: 36415; 36600; 71045; 80051; 80053; 81001; 82330; 82805; 83605; 83735; 83880; 84145; 84484; 85025; 87040; 87077; 87086; 87186; 87426; 93005; 96365; 96372; 97161; 97530; 99285; J0696; J1650; J1956; J2543; J3475; J7030

== ENCOUNTER → 2023-04-25 17:14 | Outpatient (BNVA) | payer MEDICAID, SELFPAY | PROVIDERS: PCP Internal Medicine; Visit Provider Surgery | DX: Z09 Encounter for follow-up examination after completed treatment for conditions other than malignant neoplasm (principal) | CPT/HCPCS: 99212 ==

== ENCOUNTER 2023-04-30 04:26 | Emergency (ER) | payer MEDICAID, SELFPAY ==
[2023-04-30 04:30] VITALS: BP 167/94; PULSE 93; RESP 20; TEMP 36.6; O2SAT 94; BMI 23.1
[2023-04-30 04:36] VITALS: BP 167/94; PULSE 88; RESP 14; O2SAT 97
[2023-04-30 05:06] LABS: Basophils # 0.1 10^3/uL (0.0-0.1); Basophils % 0.5 %; Eosinophils # 0.3 10^3/uL (0.0-0.8); Eosinophils % 2.3 %; Hematocrit 48.1 % (42.0-52.0); Hemoglobin 14.9 g/dL (11.7-16.6); Lymphocytes # 1.2 10^3/uL (0.8-4.8); Lymphocytes % 10.9 %; Mean Corpuscular Hemoglobin 26.6 pg (28.0-34.0); Mean Corpuscular Volume 85.7 fl (80-94); Mean Platelet Volume 10.2 fL (7.4-10.4); Monocytes # 0.8 10^3/uL (0.2-0.9); Monocytes % 6.9 %; Nucleated Red Blood Cells % 0 %; Platelet Count 240 10^3/cmm (130-400); Red Blood Count 5.61 10^6/uL (4.1-5.3); Red Cell Distribution Width 12.9 % (12.1-15.1); White Blood Count 11.4 10^3/uL (4.0-10.0)
[2023-04-30 05:14] LABS: Bilirubin Urine Neg (Negative); Blood Urine 3+ (Negative); Glucose Urine UA Norm (Normal); Ketones Urine Negative (Negative); Nitrate Urine Negative (Negative); Protein Urine 3+ (Negative); Specific Gravity, Urine 1.015 (1.005-1.030); Urine Appearance Cloudy (CLEAR); Urine Color Yellow (Yellow); Urobilinogen Urine Norm (Negative); pH Urine 7 (5-7)
[2023-04-30 05:15] LABS: Add Urine Microscopic? YES; Leukocyte Esterase Urine 2+ (Negative)
[2023-04-30 05:17] LABS: WBC Urine TOO NUMEROUS TO CNT /hpf (0-5)
[2023-04-30] MEDS: sodium chloride 0.9% 500 ML IV (05:17)
[2023-04-30 05:18] LABS: Add Urine Culture? Yes; Bacteria Urine 2+ /hpf; Squamous Epithelial Cell Urine 0-4 /hpf (0-5)
[2023-04-30 05:35] LABS: Alanine Aminotransferase 14 U/L (0-41); Albumin Level 4.2 g/dL (3.5-5.2); Alkaline Phosphatase 129 U/L (40-130); Aspartate Amino Transferase 16 U/L (0-40); Blood Urea Nitrogen 21 mg/dL (8-23); Carbon Dioxide 28 mmol/L (22-29); Chloride 101 mmol/L (98-107); Globulin 3.8 g/dL (1.3-4.6); Glucose 99 mg/dL (65-115); Osmolality Calculated 295 mOsm/kg (285-295); Sodium 141 mmol/L (136-145); Total Bilirubin 0.4 mg/dL (0.15-1.2)
[2023-04-30] MEDS: cefTRIAXone 1,000 MG in sodium chloride 0.9% (plus) 50 ML 100 MG IV (05:38)
[2023-04-30 05:45] LABS: Lactic Sepsis W/Reflex 1.1 mmol/L (0.5-2.2)
[2023-04-30 06:16] VITALS: BP 150/79; PULSE 82; RESP 16; O2SAT 93
[2023-04-30 07:16] VITALS: BP 152/87; PULSE 86; O2SAT 92
--- NOTE | 2023-05-01 02:05 | W.ED.AMS ---
HPI - Altered Mental Status General: Chief Complaint: Altered Mental Status Stated Complaint: AMS/UTI Time Seen by Provider: 04/30/23 04:42 Source: patient and EMS History of Present Illness: 77 year old male residential patient with a history of altered mental status at baseline. He presents with perhaps a mild increase in this baseline mental status deterioration. No vomiting. No feeling ill. He has an indwelling Madrigal catheter in place, In replacing the catheter it seemed that his urine was somewhat pungent. Review of Systems Eyes: Denies: change in vision ENMT: Denies: throat pain Resp: Denies: dyspnea GI: Reports: abdominal pain and nausea; Denies: vomiting PFSH ED PFSH: Medical History AMS (altered mental status) BPH (benign prostatic hyperplasia) COPD (chronic obstructive pulmonary disease) Cystitis Delirium due to general medical condition Dementia of frontal lobe type DJD (degenerative joint disease) Fever GERD (gastroesophageal reflux disease) History of 2019 novel coronavirus disease (COVID-19) Hypoxia Major depressive disorder, single episode, in full remission Proteus infection Urinary retention Ventricular premature beats Surgical History History of thoracentesis Chronic right pleural effusion which needed Butler drain which was removed by Dr. Hoover 2016 PEG (percutaneous endoscopic gastrostomy) status Family History Father Cancer Grandfather Myocardial infarction Other CAD (coronary artery disease) Social History Smoking and tobacco status: never smoked Alcohol intake: never Substance/Drug Use: never Lives independently: No Marital status: Physical Exam Const: COMMON NORMALS: no acute distress GENERAL APPEARANCE: frail appearing; not ill appearing HENMT: COMMON NORMALS: normocephalic and atraumatic HEAD & SCALP: normocephalic and atraumatic Eye: COMMON NORMALS: Equal, round and reactive pupils present and EOMs intact bilaterally PUPIL: Yes Equal, round and reactive pupils present Neck/C-Spine: GENERAL: Yes trachea midline Chest: CHEST: Yes Symmetrical chest wall rise Resp: COMMON NORMALS: normal respiratory effort and clear to auscultation bilaterally AUSCULTATION: clear to auscultation bilaterally Cardio: COMMON NORMALS: regular rate and regular rhythm RATE: regular rate RHYTHM: regular rhythm GI: COMMON NORMALS: Normal to inspection, nondistended, normoactive bowel sounds present PALPATION: No Tenderness to palpation present (GI) Neuro: CHAI COMA SCALE: document GCS findings Stopover coma scale eye opening: Spontaneous Chai coma scale verbal response: Orientated Chai coma scale motor response: Obey commands Stopover coma scale total score: 15 Course Vital Signs: Vital signs: Vital Signs Temperature 97.8 F 04/30/23 04:30 Pulse Rate 86 04/30/23 07:16 Respiratory Rate 16 04/30/23 06:16 Blood Pressure 152/87 04/30/23 07:16 Pulse Oximetry 92 04/30/23 07:16 Oxygen Delivery Me thod Room Air 04/30/23 07:16 MDM - Altered Mental Status Medical Decision Making This patient is likely very near if not at his baseline mental status. He jokes in the room. he is normotensive to slightly hypertensive. Vitals are good. He is a febrile. Laboratory shows CBC of 11.4 with no significant left shift. He does have too many whites to count on urinalysis, with two plus leukocyte estrace and two plus bacteria. He'll be treated for urinary tract infection. Close out patient follow up. Return for worsening symptoms. Lab Data 04/30/23 04:42 04/30/23 04:42 Laboratory Results WBC 11.4 10^3/uL (4.0-10.0) H 04/30/23 04:42 RBC 5.61 10^6/uL (4.1-5.3) H 04/30/23 04:42 Hgb 14.9 g/dL (11.7-16.6) 04/30/23 04:42 Hct 48.1 % (42.0-52.0) 04/30/23 04:42 MCV 85.7 fl (80-94) 04/30/23 04:42 MCH 26.6 pg (28.0-34.0) L 04/30/23 04:42 MCHC 31.0 g/dL (30.0-36.0) 04/30/23 04:42 RDW 12.9 % (12.1-15.1) 04/30/23 04:42 Plt Count 240 10^3/cmm (130-400) 04/30/23 04:42 MPV 10.2 fL (7.4-10.4) 04/30/23 04:42 Neut % (Auto) 79.0 % 04/30/23 04:42 Lymph % (Auto) 10.9 % 04/30/23 04:42 [place] % (Auto) 6.9 % 04/30/23 04:42 Eos % (Auto) 2.3 % 04/30/23 04:42 Baso % (Auto) 0.5 % 04/30/23 04:42 Neut # (Auto) 9.00 10^3/uL (1.8-7.7) H 04/30/23 04:42 Lymph # (Auto) 1.2 10^3/uL (0.8-4.8) 04/30/23 04:42 [place] # (Auto) 0.8 10^3/uL (0.2-0.9) 04/30/23 04:42 Eos # (Auto) 0.3 10^3/uL (0.0-0.8) 04/30/23 04:42 Baso # (Auto) 0.1 10^3/uL (0.0-0.1) 04/30/23 04:42 Nucleated RBC % (auto) 0 % 04/30/23 04:42 Nucleated RBCs # 0.0 /100WBC 04/30/23 04:42 Sodium 141 mmol/L (136-145) 04/30/23 04:42 Potassium 4.0 mmol/L (3.5-5.1) 04/30/23 04:42 Chloride 101 mmol/L (98-107) 04/30/23 04:42 Carbon Dioxide 28 mmol/L (22-29) 04/30/23 04:42 Anion Gap 16.0 (5-19) 04/30/23 04:42 BUN 21 mg/dL (8-23) 04/30/23 04:42 Creatinine 1.1 mg/dL (0.7-1.2) 04/30/23 04:42 GFR Calculation Not Reportable 04/30/23 04:42 Glucose 99 mg/dL (65-115) 04/30/23 04:42 Calculated Osmolality 295 mOsm/kg (285-295) 04/30/23 04:42 Lactic Acid 1.1 mmol/L (0.5-2.2) 04/30/23 04:42 Calcium 10.0 mg/dL (8.5-10.5) 04/30/23 04:42 Total Bilirubin 0.4 mg/dL (0.15-1.2) 04/30/23 04:42 AST 16 U/L (0-40) 04/30/23 04:42 ALT 14 U/L (0-41) 04/30/23 04:42 Alkaline Phosphatase 129 U/L (40-130) 04/30/23 04:42 Total Protein 8.0 g/dL (6.6-8.7) 04/30/23 04:42 Albumin 4.2 g/dL (3.5-5.2) 04/30/23 04:42 Globulin 3.8 g/dL (1.3-4.6) 04/30/23 04:42 Urine Color Yellow (Yellow) 04/30/23 04:44 Urine Appearance Cloudy (CLEAR) A 04/30/23 04:44 Urine pH 7 (5-7) 04/30/23 04:44 Ur Specific [place] 1.015 (1.005-1.030) 04/30/23 04:44 Urine Protein 3+ (Negative) H 04/30/23 04:44 Urine Glucose (UA) Norm (Normal) 04/30/23 04:44 Urine Ketones Negative (Negative) 04/30/23 04:44 Urine Blood 3+ (Negative) H 04/30/23 04:44 Urine Nitrate Negative (Negative) 04/30/23 04:44 Urine Bilirubin Neg (Negative) 04/30/23 04:44 Urine Urobilinogen Norm mg/dL (Negative) 04/30/23 04:44 Ur Leukocyte Esterase 2+ (Negative) H 04/30/23 04:44 Urine RBC 10-15 /hpf (0-2) H 04/30/23 04:44 Urine WBC Too numerous to cnt /hpf (0-5) H 04/30/23 04:44 Ur Squamous Epith Cells 0-4 /hpf (0-5) H 04/30/23 04:44 Amorphous Sediment Not Reportable 04/30/23 04:44 Urine Bacteria 2+ /hpf (NONE) H 04/30/23 04:44 Discharge Plan Discharge Patient Disposition: Home Clinical Impression: Acute UTI, Acute urinary retention Condition: Stable Prescriptions: New Bactrim DS 800-160 mg tablet 1 tab PO DAILY 7 Days Qty: 14 0RF No Action acetaminophen 325 mg capsule 650 mg PO Q4H PRN (Reason: PAIN/FEVER) finasteride 5 mg tablet 5 mg PO DAILY@20 bisacodyl 10 mg suppository 10 mg DC DAILY PRN (Reason: Constipation) calcium carbonate [Tums] 200 mg calcium (500 mg) Tablet,Chewable 1,000 mg PO QID PRN (Reason: Indigestion) aspirin 81 mg Tablet,Delayed Release (Dr/Ec) 81 mg PO DAILY@08 tamsulosin [Flomax] 0.4 mg capsule 0.4 mg PO QPM Refresh Tears 1 ophthalmic insert eye-both BID polyethylene glycol 3350 [Miralax] 17 gram/dose Powder 4 g PO DAILY PRN (Reason: Constipation) albuterol sulfate 90 mcg/actuation HFA aerosol inhaler 2 inh inhalation Q8H PRN (Reason: shortness of breath or wheezing) Qty: 8.5 3RF Discharge Orders: Discharge ED (Routine); Ordered 04/30/23 Ordered By: Hal Luke Referrals: Dominic Adams DO [Primary Care Provider] - Patient Instructions: Urinary Tract Infection in Older Adults (ED) Activity Restrictions/Additional Instructions: Antibiotics as directed. Return for fever greater than 100 despite 2-3 doses of antibiotics, worsening mental status, vomiting liquids or medications, other concerning symptoms. Madrigal care as usual. Coding Level of Care Code ED Staff Midwife/Apprenticeship Director for Rachelle Buckner
== END 2023-04-30 09:06 | disposition home or self-care (01) ==
PROVIDERS: Emergency Provider Emergency Medicine; PCP Internal Medicine
DX: N39.0 Urinary tract infection, site not specified (principal); R33.9 Retention of urine, unspecified; Z79.82 Long term (current) use of aspirin; J44.9 Chronic obstructive pulmonary disease, unspecified; F03.90 Unspecified dementia, unspecified severity, without behavioral disturbance, psychotic disturbance, mood disturbance, and anxiety
CPT/HCPCS: 80053; 81001; 83605; 85025; 87077; 87086; 87186; 96365; 99284; J0696; J7040

== ENCOUNTER 2023-08-04 20:55 | Inpatient (IN) | payer MEDICAID, SELFPAY ==
[2023-08-04 20:58] VITALS: BP 162/107; PULSE 135; RESP 18; TEMP 39.4; O2SAT 95; BMI 25.7
--- NOTE | 2023-08-04 21:02 | ECG_ITS ---
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 Measurements Intervals [place] Rate: 159 P: 0 [place]: 0 QRS: 25 QRSD: 94 T: 62 QT: 284 QTc: 462 Interpretive Statements SINUS TACHYCARDIA NONSPECIFIC ST & T-WAVE ABNORMALITY Compared to ECG 04/06/2023 17:55:43 T-wave abnormality now present Sinus tachycardia no longer present Electronically Signed On 08-05-2023 5:56:19 CDT by Ruma Santiago M.D. [id number] f
--- NOTE | 2023-08-04 21:02 | XRR_ITS ---
PROCEDURE INFORMATION: Exam: XR Chest Exam date and time: 08/04/2023 9:21 PM Age: 77 years old Clinical indication: Fever and other: AMS; Patient HX: Fever; AMS; Urosepsis TECHNIQUE: Imaging protocol: Radiologic exam of the chest. Views: 1 view. COMPARISON: CR (CHEST, ) 04/06/2023 1:43 PM FINDINGS: Lungs: Bibasilar atelectasis versus minimal infiltrate. Pleural spaces: Unremarkable. No pleural effusion. No pneumothorax. Heart/Mediastinum: Unremarkable. No cardiomegaly. Bones/joints: Unremarkable. XR/XR chest 1V [id number] IMPRESSION: Bibasilar atelectasis versus minimal infiltrate.
[2023-08-04 21:36] LABS: Basophils # 0.1 10^3/uL (0.0-0.1); Basophils % 0.4 %; Hematocrit 47.9 % (37-53); Lymphocytes # 0.4 10^3/uL (0.8-4.8); Lymphocytes % 1.6 %; Mean Corpuscular HGB Conc 32.8 g/dL (30-55); Mean Corpuscular Hemoglobin 27.2 pg (27-33); Mean Platelet Volume 11.1 fL (7.4-10.4); Monocytes # 0.3 10^3/uL (0.2-0.9); Monocytes % 1.4 %; Neutrophils # 21.08 10^3/uL (1.8-7.7); Nucleated Red Blood Cells % 0 %; Platelet Count 276 10^3/cmm (157-399); Red Blood Count 5.77 10^6/uL (3.85-5.65); Red Cell Distribution Width 13.4 % (12.1-15.1); White Blood Count 21.96 10^3/uL (3.29-11.43)
[2023-08-04] MEDS: sodium chloride 0.9% 500 ML IV ×2 (21:43→23:48)
[2023-08-04] MEDS: acetaminophen 1,000 MG/100 ML PIGGYBACK 400 MG IV (21:44)
[2023-08-04 21:45] LABS: Erythrocyte Sedimentation Rate 25 mm/hr (0-10)
[2023-08-04] MEDS: dilTIAZem 5 mg/mL SDV 5 mL 15 MG IVP (21:49)
--- NOTE | 2023-08-04 21:51 | ED_ITS ---
HPI - Fever General: Chief Complaint: Fever Stated Complaint: FEVER Time Seen by Provider: 08/04/23 20:59 Source: EMS and RN notes reviewed Mode of arrival: EMS Limitations: altered mental status History of Present Illness: Patient presents emergency department today brought by EMS from a nursing facil [facility] for evaluation treatment of fever. Nurse states that very little information was able to be obtained due to the patient's condition and, EMS did not have significant amount of information. However, they did note that the last time patient became similarly ill he was found to have urosepsis. Patient does have an indwelling Madrigal catheter. They state they called the patient's physician about his symptoms and recommended he be seen here in the emergency department. Nursing indicates patient received no previous treatment prior to arrival by EMS. Review of Systems General: Reports: 10 or more systems reviewed and unremarkable except in HPI and below PFSH ED PFSH: Medical History AMS (altered mental status) BPH (benign prostatic hyperplasia) COPD (chronic obstructive pulmonary disease) Cystitis Delirium due to general medical condition Dementia of frontal lobe type DJD (degenerative joint disease) Fever GERD (gastroesophageal reflux disease) History of 2019 novel coronavirus disease (COVID-19) Hypoxia Major depressive disorder, single episode, in full remission Proteus infection Urinary retention Ventricular premature beats Surgical History History of thoracentesis Chronic right pleural effusion which needed [place] drain which was removed by Dr. Hoover 2016 PEG (percutaneous endoscopic gastrostomy) status Family History Father Cancer Grandfather Myocardial infarction Other CAD (coronary artery disease) Social History Smoking and tobacco/nicotine status: never used tobacco/nicotine Alcohol intake: never Substance/Drug Use: never Lives independently: No Marital status: Physical Exam Const: GENERAL APPEARANCE: lethargic ORIENTATION/CONSCIOUSNESS: Yes oriented to person and Yes lethargic OTHER: Patient with minimal ability to communicate though he does respond to verbal and visual stimuli in the room. Will look at you while you are talking to him. Eye: OTHER: PERRLA. EOMs intact. Does follow visual stimuli. Neck/C-Spine: OTHER: Demonstrates full range of motion of the neck as he is able to turn his head side to side. Resp: OTHER: Equal breath sounds bilaterally. Equal rise and fall of the chest. No signs of accessory muscle use or distress. Cardio: OTHER: Tachycardia. GI: OTHER: Abdomen is soft. No palpable swelling but the suprapubic region concerning for urinary retention. : OTHER: Indwelling Madrigal catheter in place Extremity: NARRATIVE EXTREMITY EXAM: Patient does move his arms and legs independently in the bed to reposition. Neuro: COMMON NORMALS: moves all extremities SENSORIUM/ORIENTATION: Yes oriented to person and Yes lethargic OTHER: Patient attempts to respond to questioning and speak but, is unable to be coherent. Course Vital Signs: Vital signs: Vital Signs Temperature 101.7 F H 08/04/23 23:21 Pulse Rate 115 H 08/04/23 23:21 Respiratory Rate 30 H 08/04/23 23:21 Blood Pressure 95/62 08/04/23 23:21 Pulse Oximetry 96 08/04/23 23:21 Oxygen Delivery Me thod Room Air 08/04/23 20:58 Oxygen Flow Rate 6 08/04/23 20:58 MDM - Fever Medical Decision Making Patient is febrile upon arrival. He is also found to be acutely tachycardic. Dr. Luke placed in order for Cardizem which did seem to help his heart rate. With patient's history of urosepsis we did perform a sepsis work-up which found an elevated white blood cell count of 22. Electrolytes are within normal limits the patient appears to have an CHARLA with a creatinine of 2.1 which is noticeably elevated above his baseline. Patient's lactic acid is 4.7 and procalcitonin is 0.65. Urinalysis shows bacteria and 2+ leukocyte esterase with white blood cell count greater than 100. X-ray was suspicious for bibasilar atelectasis or possible minimal infiltrate at this point. Consulted with Dr. Luke who agrees patient needs to be admitted. Given these findings, I did reach out and speak with Dr. Olmos who agrees to admission for this patient. Patient has been treated with IV Tylenol, fluids, and ciprofloxacin at this point. We will defer care to the hospitalist services for further monitoring and treatment of this patient. Differential Diagnosis Unlikely calculus of kidney, constipation, diverticulitis, gastroenteritis or small bowel obstruction Lab Data 08/04/23 21:08/04/23: Radiology Impressions Chest X-Ray 08/04/23 21: IMPRESSION: Bibasilar atelectasis versus minimal infiltrate. Laboratory Results WBC 21.96 10^3/uL (3.29-11.43) H 08/04/23 21: RBC 5.77 10^6/uL (3.85-5.65) H 08/04/23: Hgb 15.70 g/dL (11.27-16.99) 08/04/23: Hct 47.9 % (37-53) 08/04/23: MCV 83.0 fl (82-101) 08/04/23: MCH 27.2 pg (27-33) 08/04/23: MCHC 32.8 g/dL (30-55) 08/04/23: RDW 13.4 % (12.1-15.1) 08/04/23: Plt Count 276 10^3/cmm (157-399) 08/04/23: MPV 11.1 fL (7.4-10.4) H 08/04/23: Neut % (Auto) 96.0 % 08/04/23: Lymph % (Auto) 1.6 % 08/04/23: [place] % (Auto) 1.4 % 08/04/23: Eos % (Auto) 0.0 % 08/04/23: Baso % (Auto) 0.4 % 08/04/23: Neut # (Auto) 21.08 10^3/uL (1.8-7.7) H 08/04/23: Lymph # (Auto) 0.4 10^3/uL (0.8-4.8) L 08/04/23: [place] # (Auto) 0.3 10^3/uL (0.2-0.9) 08/04/23: Eos # (Auto) 0.0 10^3/uL (0.0-0.8) 08/04/23: Baso # (Auto) 0.1 10^3/uL (0.0-0.1) 08/04/23 21: Nucleated RBC % (auto) 0 % 08/04/23: Nucleated RBCs # 0.0 /100WBC 08/04/23 21: ESR 25 mm/hr (0-10) H 08/04/23 21:29 Sodium 136 mmol/L (136-145) 08/04/23 21: Potassium 4.3 mmol/L (3.5-5.1) 08/04/23: Chloride 100 mmol/L (98-107) 08/04/23 21: Carbon Dioxide 20 mmol/L (22-29) L 08/04/23: Anion Gap 20.3 (5-19) H 08/04/23 21: BUN 31 mg/dL (8-23) H 08/04/23 21: Creatinine 2.1 mg/dL (0.7-1.2) H 08/04/23 21: GFR Calculation Not Reportable 08/04/23: Glucose 184 mg/dL (65-115) H 08/04/23 21: Calculated Osmolality 293 mOsm/kg (285-295) 08/04/23 21: Lactic Acid 4.7 mmol/L (0.5-2.2) H* 08/04/23 22:41 Calcium 10.2 mg/dL (8.5-10.5) 08/04/23 21: Total Bilirubin 0.6 mg/dL (0.15-1.2) 08/04/23: AST 19 U/L (0-40) 08/04/23: ALT 17 U/L (0-41) 08/04/23 21: Alkaline Phosphatase 136 U/L (40-130) H 08/04/23 21: C-Reactive Protein 107.3 mg/L (0.0-4.9) H 08/04/23 21: Total Protein 8.2 g/dL (6.6-8.7) 08/04/23 21: Albumin 4.4 g/dL (3.5-5.2) 08/04/23: Globulin 3.8 g/dL (1.3-4.6) 08/04/23 21:29 Procalcitonin 0.65 ng/mL (0-0.5) H 08/04/23 21:29 Urine Color Yellow (Yellow) 08/04/23 22:46 Urine Appearance Cloudy (CLEAR) A 08/04/23 22:46 Urine pH 8 (5-7) H 08/04/23 22:46 Ur Specific [place] 1.010 (1.005-1.030) 08/04/23 22:46 Urine Protein 1+ (Negative) H 08/04/23 22:46 Urine Glucose (UA) Norm (Normal) 08/04/23 22:46 Urine Ketones Negative (Negative) 08/04/23 22:46 Urine Blood 3+ (Negative) H 08/04/23 22:46 Urine Nitrate Negative (Negative) 08/04/23 22:46 Urine Bilirubin Neg (Negative) 08/04/23 22:46 Prot Sulfosalicylic Acd Positive (Negative) 08/04/23 22:46 Urine Urobilinogen Neg mg/dL (Negative) 08/04/23 22:46 Ur Leukocyte Esterase 2+ (Negative) H 08/04/23 22:46 Urine RBC >100 /hpf (0-2) H 08/04/23 22:46 Urine WBC >100 /hpf (0-5) H 08/04/23 22:46 Ur Squamous Epith Cells 0-4 /hpf (0-5) H 08/04/23 22:46 Amorphous Sediment Not Reportable 08/04/23 22:46 Urine Bacteria 1+ /hpf (NONE) H 08/04/23 22:46 SARS-CoV-2 Ag (Rapid) negative (Negative) 08/04/23 22:47 All radiology interpretation(s) finalized by discharge Discharge Plan Discharge Patient Disposition: Admitted As Inpatient Clinical Impression: Sepsis, Acute UTI, CHARLA (acute kidney injury) Condition: Stable Coding Level of Care Code ED Storeroom Keeper for Rachelle Buckner
[2023-08-04 21:55] LABS: Alanine Aminotransferase 17 U/L (0-41); Albumin Level 4.4 g/dL (3.5-5.2); Alkaline Phosphatase 136 U/L (40-130); Anion Gap 20.3 (5-19); Aspartate Amino Transferase 19 U/L (0-40); Blood Urea Nitrogen 31 mg/dL (8-23); C Reactive Protein 107.3 mg/L (0.0-4.9); Calcium 10.2 mg/dL (8.5-10.5); Carbon Dioxide 20 mmol/L (22-29); Chloride 100 mmol/L (98-107); Globulin 3.8 g/dL (1.3-4.6); Glucose 184 mg/dL (65-115); Osmolality Calculated 293 mOsm/kg (285-295); Potassium 4.3 mmol/L (3.5-5.1); Sodium 136 mmol/L (136-145); Total Bilirubin 0.6 mg/dL (0.15-1.2); Total Protein 8.2 g/dL (6.6-8.7)
[2023-08-04 22:02] LABS: Procalcitonin 0.65 ng/mL (0-0.5)
[2023-08-04] MEDS: dilTIAZem 5 mg/mL SDV 5 mL 10 MG IVP (22:41)
[2023-08-04 22:45] VITALS: BP 118/72; PULSE 120; RESP 25; O2SAT 95
[2023-08-04 23:12] LABS: Lactic Sepsis W/Reflex 4.7 mmol/L (0.5-2.2)
[2023-08-04 23:14] LABS: Protein Urine 1+ (Negative); Urine Appearance Cloudy (CLEAR); Urine Color Yellow (Yellow); pH Urine 8 (5-7)
[2023-08-04 23:15] LABS: Add Urine Microscopic? YES; Bilirubin Urine Neg (Negative); Blood Urine 3+ (Negative); Glucose Urine UA Norm (Normal); Ketones Urine Negative (Negative); Leukocyte Esterase Urine 2+ (Negative); Nitrate Urine Negative (Negative); RBC Urine >100 /hpf (0-2); Squamous Epithelial Cell Urine 0-4 /hpf (0-5); Sulfosalicylic Acid Urine Positive (Negative); Urobilinogen Urine Neg (Negative); WBC Urine >100 /hpf (0-5)
[2023-08-04 23:16] LABS: Add Urine Culture? Yes; Bacteria Urine 1+ /hpf
[2023-08-04 23:19] LABS: SARS Covid-2 Antigen negative (Negative)
[2023-08-04 23:21] VITALS: BP 95/62; PULSE 115; RESP 30; TEMP 38.7; O2SAT 96
[2023-08-04] MEDS: ciprofloxacin 400 MG/200 ML PREMIX 200 MG IV (23:48)
[2023-08-05] VITALS (18 sets, daily range): BP systolic 88–140; BP diastolic 52–77; PULSE 89–113; RESP 16–31; TEMP 36.6–37.3; O2SAT 94–100
--- NOTE | 2023-08-05 00:19 | PM.HP ---
Providers/Chief Complaint Primary Care Provider: Dominic Adams DO Chief Complaint: FEVER History of Present Illness Ben Ochoa is a 77 year old male COPD, Alzheimer's dementia, insomnia, BPH, GERD, depression and insomnia, chronic indwelling catheter was sent in from the detention for fever of 103 ?F. And confusion. He has a history of recurrent UTI secondary to chronic indwelling catheter. There is no history of cold cough shortness of breath abdominal pain nausea vomiting diarrhea. Unable to obtain further history due to dementia and incoherent speech Review of Systems Narrative: Unable to assess due to dementia and incoherent speech Medications/Allergies Home Medications Medication Instructions Recorded Confirmed Last Taken Type acetaminophen 325 mg capsule 650 mg PO Q4H PRN PAIN/FEVER 11/27/19 04/25/23 04/06/23 History finasteride 5 mg tablet 5 mg PO DAILY@11/27/19 04/25/23 04/05/23 History bisacodyl 10 mg rectal suppository 10 mg MT DAILY PRN Constipation 03/01/20 04/25/23 Unknown History calcium carbonate 200 mg calcium 1,000 mg PO QID PRN Indigestion 12/08/20 04/25/23 04/04/23 History (500 mg) chewable tablet (Tums) aspirin 81 mg tablet,delayed 81 mg PO DAILY@08 01/26/21 04/25/23 04/06/23 History release Refresh Tears 1 ophthalmic insert eye-both BID 04/03/23 04/25/23 04/06/23 History tamsulosin 0.4 mg capsule (Flomax) 0.4 mg PO QPM 04/03/23 04/25/23 04/05/23 History polyethylene glycol 3350 17 4 g PO DAILY PRN Constipation 04/04/23 04/25/23 Unknown History gram/dose oral powder (Miralax) albuterol sulfate 90 mcg/actuation 2 inh inhalation Q8H PRN shortness 04/09/23 04/25/23 Unknown Rx aerosol inhaler of breath or wheezing #8.5 grams Allergies Allergy/AdvReac Type Severity Reaction Status Date / Time tetanus toxoid, adsorbed Allergy Unknown unknown Verified 04/30/23 04:43 PFSH Acute PFSH: Medical History AMS (altered mental status) BPH (benign prostatic hyperplasia) COPD (chronic obstructive pulmonary disease) Cystitis Delirium due to general medical condition Dementia of frontal lobe type DJD (degenerative joint disease) Fever GERD (gastroesophageal reflux disease) History of 2019 novel coronavirus disease (COVID-19) Hypoxia Major depressive disorder, single episode, in full remission Proteus infection Urinary retention Ventricular premature beats Surgical History History of thoracentesis Chronic right pleural effusion which needed [place] drain which was removed by Dr. Hoover 2016 PEG (percutaneous endoscopic gastrostomy) status Family History Father Cancer Grandfather Myocardial infarction Other CAD (coronary artery disease) Social History Smoking and tobacco/nicotine status: never used tobacco/nicotine Alcohol intake: never Substance/Drug Use: never Lives independently: No Marital status: Vitals/I&O/Wt Last Vital Signs Temp 101.7 F H 08/04/23 23:21 Pulse 115 H 08/04/23 23:21 Resp 30 H 08/04/23 23:21 BP 95/62 08/04/23 23:21 Pulse Ox 96 08/04/23 23:21 O2 Del Method Room Air 08/04/23 20:58 O2 Flow Rate 6 08/04/23 20:58 08/04/23 08/04/23 08/05/23 14:59 22:59 06:59 Intake Total 600 / 600 Balance 600 / 600 Weight last 48 hrs Weight 90.718 kg Physical Exam Narrative: He is awake alert oriented to self only, speech incoherent and slurred Chest clear to auscultation bilaterally Cardiovascular normal heart sounds no murmurs Abdomen soft nontender distended normal bowel sounds Extremities no edema noted bilateral lower extremity Data 08/04/23 21:29 08/04/23 21:29 Micro: Microbiology 08/04/23 22:41 Blood Culture - Preliminary Blood SPECIMEN COLLECTED 08/04/23 22:47 Blood Culture - Preliminary Blood SPECIMEN COLLECTED CXR: Radiologist's impression: Bibasilar atelectasis versus minimal infiltrate EKG 1: My Interpretation: Supraventricular tachycardia at [address]-T changes A&P Assessment and plan (1) UTI (urinary tract infection): (2) Sepsis: Qualifiers: Acute renal failure type: unspecified Sepsis acute organ dysfunction status: with acute organ dysfunction Sepsis type: sepsis due to unspecified organism Severe sepsis acute organ dysfunction type: acute renal failure Severe sepsis shock status: with septic shock Qualified Code(s): A41.9 - Sepsis, unspecified organism; R65.21 - Severe sepsis with septic shock; N17.9 - Acute kidney failure, unspecified Plan 77 year old male COPD, Alzheimer's dementia, insomnia, BPH, GERD, depression and insomnia, chronic indwelling catheter was sent in from the detention for fever of 103 ?F. And confusion found to have a WBC count of 22 K lactic acid 4.7 acute renal failure with creatinine 2.1 and UA strongly positive for UTI. UTI with sepsis We will give IV fluids normal saline at 100 mL/h IV Zosyn 3.375 g every 8 hours Had 1 episode of SVT at 160 bpm , likely secondary to urosepsis , received Cardizem 10 mg and 50 mg IV push once, heart rate at 104. Will monitor for now. Admit to CSU. Need change of urinary catheter Resume detention medications IV Pepcid 20 mg twice a day for stress ulcer prophylaxis Subcutaneous Lovenox 40 mg daily for DVT prophylaxis Cardiac diet He is full code for now, need to call in a.m. to confirm the CODE STATUS Attestations Medical Necessity Statement*: He needs less than 2 days of hospitalization. He is here for management of urosepsis with IV fluids and antibiotics. Time Spent in Patient Care: 30 minutes Coding Level of Care Code Acute Code for [facility] Diagnoses UTI (urinary tract infection) N39.0 Sepsis A41.9; R65.21; N17.9 Acute renal failure type: unspecified Sepsis acute organ dysfunction status: with acute organ dysfunction Sepsis type: sepsis due to unspecified organism Severe sepsis acute organ dysfunction type: acute renal failure Severe sepsis shock status: with septic shock Time Spent (min) 30
[2023-08-05 00:41] LABS: Reflex Lactate Order REFLEX LACTIC ORDERD
[2023-08-05 02:04] LABS: Lactic Acid level (Lactate) 5.5 mmol/L (0.5-2.2)
[2023-08-05] MEDS: sodium chloride 0.9% 1,000 ML 999 ML IV (02:05)
[2023-08-05] MEDS: sodium chloride 0.9% 1,000 ML 100 ML IV ×2 (03:39→15:21)
[2023-08-05] MEDS: famotidine 20 mg/2 mL INJ IVP ×2 (03:47→12:32)
[2023-08-05] MEDS: enoxaparin 40 mg/0.4 mL Syringe SUBCUT (03:48)
[2023-08-05 05:49] LABS: Hematocrit 43.9 % (37-53); Mean Corpuscular Hemoglobin 26.8 pg (27-33); Mean Corpuscular Volume 86.4 fl (82-101); Mean Platelet Volume 10.8 fL (7.4-10.4); Platelet Count 178 10^3/cmm (157-399); Red Blood Count 5.08 10^6/uL (3.85-5.65); Red Cell Distribution Width 13.5 % (12.1-15.1); White Blood Count 21.19 10^3/uL (3.29-11.43)
[2023-08-05 06:13] LABS: Alanine Aminotransferase 14 U/L (0-41); Albumin Level 3.1 g/dL (3.5-5.2); Alkaline Phosphatase 91 U/L (40-130); Anion Gap 16.3 (5-19); Aspartate Amino Transferase 18 U/L (0-40); Blood Urea Nitrogen 34 mg/dL (8-23); Calcium 8.6 mg/dL (8.5-10.5); Carbon Dioxide 21 mmol/L (22-29); Chloride 106 mmol/L (98-107); Glucose 113 mg/dL (65-115); Magnesium 1.3 mg/dL (1.7-2.3); Osmolality Calculated 298 mOsm/kg (285-295); Potassium 3.3 mmol/L (3.5-5.1); Sodium 140 mmol/L (136-145); Total Bilirubin 0.5 mg/dL (0.15-1.2); Total Protein 6.1 g/dL (6.6-8.7)
[2023-08-05 06:17] LABS: Lactic Sepsis W/Reflex 5.2 mmol/L (0.5-2.2)
[2023-08-05] MEDS: piperacillin-tazobactam 3.375 GM in sodium chloride 0.9% (plus) 50 ML IV ×3 (06:29→23:11)
[2023-08-05 06:31] LABS: Absolute Segmented Neutrophil 13.8 10/cmm (1.6-7.1); Band Neutrophils Absolute 3.8 10^3/cmm (0.0-1.2); Eosinophils 0 %; Lymphocytes 5 %; Lymphocytes Absolute 1.1 10^3/cmm (1.2-3.4); Monocytes Absolute 1.1 10^3/cmm (0.1-0.6); Segmented Neutrophils 65 %; Slide Review Slide Review Perform; Total Cells Counted 100 (0-100)
[2023-08-05 06:32] LABS: Absolute Neutrophil 17.6 10^3/cmm (1.4-6.5); Platelet Estimate Normal (Normal)
[2023-08-05 07:32] LABS: Reflex Lactate Order REFLEX LACTIC ORDERD
[2023-08-05] MEDS: ipratropium-albuterol 3 mL Neb INHALATION ×3 (08:24→20:09)
[2023-08-05 08:25] LABS: Lactic Acid level (Lactate) 3.7 mmol/L (0.5-2.2)
--- NOTE | 2023-08-05 09:07 | CTR_ITS ---
PROCEDURE INFORMATION: Exam: CT Abdomen And Pelvis Without Contrast Exam date and time: 08/05/2023 10:17 AM Age: 77 years old Clinical indication: Other: Sepsis, UTI, letitia TECHNIQUE: Imaging protocol: Computed tomography of the abdomen and pelvis without contrast. Radiation optimization: All CT scans at this facility use at least one of these dose optimization techniques: automated exposure control; mA and/or kV adjustment per patient size (includes targeted exams where dose is matched to clinical indication); or iterative reconstruction. REPORTING DATA: Count of CT and Cardiac NM exams in prior 12 months: This patient has received 0 known CTs and 0 known cardiac nuclear medicine studies in the 12 months prior to the current study. COMPARISON: CT abdomen pelvis w con* [id number] 02/24/2021 10:27 AM RADIATION DOSE METRICS: Total DLP (mGy-cm): 975.7 FINDINGS: Limitations: Moderate respiratory motion artifact. Lungs: Consolidation in both lower lobes, right greater than left. Pleural spaces: Trace left pleural effusion. Liver: Liver is unremarkable. Gallbladder and bile ducts: Gallbladder is partially obscured by respiratory motion artifact. No stones are seen. No gross biliary dilation. Pancreas: There is moderate atrophy of the pancreas. Spleen: The spleen is unremarkable. Adrenal glands: The adrenal glands are unremarkable. Kidneys and ureters: Left kidney is unremarkable. No hydronephrosis or stones. There is moderate asymmetric right perinephric edema. No hydronephrosis or stones on the right. No ureteral dilation. Stomach and bowel: The stomach is unremarkable. The small bowel is nondilated. There is mild sigmoid colonic diverticulosis without evidence of diverticulitis. Appendix: The appendix is normal. Intraperitoneal space: There is no free air or significant intraperitoneal free fluid. Vasculature: There is mild aortic atherosclerotic disease. Lymph nodes: There is no lymphadenopathy in the retroperitoneum, mesentery, pelvis or inguinal regions. Urinary bladder: The urinary bladder is decompressed, preventing meaningful evaluation of wall thickness. The Madrigal catheter is appropriately positioned with the bulb and tip within the bladder lumen. Reproductive: There is nonspecific moderate enlargement of the prostate gland. Bones/joints: Diffuse thoracolumbar vertebral syndesmophytes. Diffuse lumbar facet fusion. No visible fracture. Pelvis and hips are unremarkable. Soft tissues: Large right posterior adductor lipoma partially imaged. Small left gluteus hugo lipoma. The abdominal wall is intact. CT/CT abdomen pelvis wo con [id number] IMPRESSION: 1. Bilateral lower lung consolidation suspicious for infection or aspiration. 2. Moderate asymmetric right perirenal edema. Nonspecific finding. This may be related to recent prior obstruction. No sign of ongoing obstruction. Renal vein thrombosis could also produce this finding. This finding is infrequently associated with pyelonephritis. No renal or perirenal abscess is visible. 3. Incidental findings above.
[2023-08-05 09:39] LABS: Thyroid Stimulating Hormone 1.99 uIU/mL (0.27-4.20)
[2023-08-05 09:49] LABS: Vitamin B12 381 pg/mL (232-1245)
[2023-08-05 10:00] LABS: Iron 7 ug/dL (59-158); Percent Saturation 3.7 % (20-50); Total Iron Binding Capacity 188 mcg/dl; Unsaturated Iron Binding 181 ug/dL (112-347)
[2023-08-05] MEDS: aspirin 81 mg EC Tablet PO (10:47)
--- NOTE | 2023-08-05 12:11 | P.EN_ITS ---
Event Note Event Note: Admitted earlier today morning. H&P and labs appreciated. Patient admitted for sepsis with UTI, not in shock, altered mental status and acute kidney injury. On review patient has past medical history of UTI with Proteus mirabilis and ESBL E. coli. Vitals shows patient on 3 L saturating more than 92%. Blood pressure stable. Plan: Check CT abdomen pelvis to rule out obstructive nephropathy in setting of UTI and acute kidney injury. Continue with current IV fluids. Continue with Zosyn as both bacteria in past are susceptible. Radiology Impressions Chest X-Ray 08/04/23 21:02 IMPRESSION: Bibasilar atelectasis versus minimal infiltrate. Abdomen/Pelvis CT 08/05/23 09:07 IMPRESSION: 1. Bilateral lower lung consolidation suspicious for infection or aspiration. 2. Moderate asymmetric right perirenal edema. Nonspecific finding. This may be related to recent prior obstruction. No sign of ongoing obstruction. Renal vein thrombosis could also produce this finding. This finding is infrequently associated with pyelonephritis. No renal or perirenal abscess is visible. 3. Incidental findings above. Laboratory Results WBC 21.19 10^3/uL (3. 29-11.43) H 08/05/23 04:57 RBC 5.08 10^6/uL (3.8 5-5.65) 08/05/23 04:57 Hgb 13.60 g/dL (11.27 -16.99) 08/05/23 04:57 Hct 43.9 % (37-53) 08/05/23 04:57 MCV 86.4 fl (82-101) 08/05/23 04:57 MCH 26.8 pg (27-33) L 08/05/23 04:57 MCHC 31.0 g/dL (30-55) D 08/05/23 04:57 RDW 13.5 % (12.1-15.1 ) 08/05/23 04:57 Plt Count 178 10^3/cmm (157 -399) D 08/05/23 04:57 MPV 10.8 fL (7.4-10.4 ) H 08/05/23 04:57 Neut % (Auto) 96.0 % 08/04/23 21:29 Lymph % (Auto) Not Reportable 08/05/23 04:57 [place] % (Auto) Not Reportable 08/05/23 04:57 Eos % (Auto) 0.0 % 08/04/23 21:29 Baso % (Auto) 0.4 % 08/04/23 21:29 Neut # (Auto) 21.08 10^3/uL (1. 8-7.7) H 08/04/23 21:29 Lymph # (Auto) Not Reportable 08/05/23 04:57 [place] # (Auto) Not Reportable 08/05/23 04:57 Eos # (Auto) 0.0 10^3/uL (0.0- 0.8) 08/04/23 21:29 Baso # (Auto) 0.1 10^3/uL (0.0- 0.1) 08/04/23 21:29 Nucleated RBC % (a uto) 0 % 08/04/23 21:29 Total Counted 100 (0-100) 08/05/23 04:57 Atypical Lymphs % 0.0 % (0-5) 08/05/23 04:57 Absolute Neutrophi ls 17.6 10^3/cmm (1. 4-6.5) H 08/05/23 04:57 Segmented Neutroph ils 65 % 08/05/23 04:57 Abs Segm Neuts (Ma n) 13.8 10/cmm (1.6- 7.1) H 08/05/23 04:57 Band Neutrophils 18.0 % 08/05/23 04:57 Abs Band Neuts (Ma n) 3.8 10^3/cmm (0.0 -1.2) H 08/05/23 04:57 Absolute Lymphocyt es 1.1 10^3/cmm (1.2 -3.4) L 08/05/23 04:57 Lymphocytes (Manua l) 5 % 08/05/23 04:57 Monocytes (Manual) 5.0 % 08/05/23 04:57 Absolute Monocytes 1.1 10^3/cmm (0.1 -0.6) H 08/05/23 04:57 Eosinophils (Manua l) 0 % 08/05/23 04:57 Absolute Eosinophi ls 0.0 10^3/cmm (0.0 -0.7) 08/05/23 04:57 Basophils (Manual) 0.0 % 08/05/23 04:57 Absolute Basophils 0.0 10^3/cmm (0.0 -0.2) 08/05/23 04:57 Metamyelocytes 7.0 % 08/05/23 04:57 Nucleated RBCs # 0.0 /100WBC 08/04/23 21:29 Platelet Estimate Normal (Normal) 08/05/23 04:57 ESR 25 mm/hr (0-10) H 08/04/23 21:29 Sodium 140 mmol/L (136-1 45) 08/05/23 04:57 Potassium 3.3 mmol/L (3.5-5 .1) L 08/05/23 04:57 Chloride 106 mmol/L (98-10 7) 08/05/23 04:57 Carbon Dioxide 21 mmol/L (22-29) L 08/05/23 04:57 Anion Gap 16.3 (5-19) 08/05/23 04:57 BUN 34 mg/dL (8-23) H 08/05/23 04:57 Creatinine 2.7 mg/dL (0.7-1. 2) H 08/05/23 04:57 GFR Calculation Not Reportable 08/05/23 04:57 Glucose 113 mg/dL (65-115 ) 08/05/23 04:57 Calculated Osmolal ity 298 mOsm/kg (285- 295) H 08/05/23 04:57 Lactic Acid 5.2 mmol/L (0.5-2 .2) H* 08/05/23 04:57 Lactic Acid (Sepsi s) 3.7 mmol/L (0.5-2 .2) H 08/05/23 07:44 Calcium 8.6 mg/dL (8.5-10 .5) 08/05/23 04:57 Magnesium 1.3 mg/dL (1.7-2. 3) L 08/05/23 04:57 Iron 7 ug/dL (59-158) L 08/05/23 04:57 TIBC 188 mcg/dl 08/05/23 04:57 % Saturation 3.7 % (20-50) L 08/05/23 04:57 Unsat Iron Binding 181 ug/dL (112-34 7) 08/05/23 04:57 Total Bilirubin 0.5 mg/dL (0.15-1 .2) 08/05/23 04:57 AST 18 U/L (0-40) 08/05/23 04:57 ALT 14 U/L (0-41) 08/05/23 04:57 Alkaline Phosphata se 91 U/L (40-130) 08/05/23 04:57 C-Reactive Protein 107.3 mg/L (0.0-4 .9) H 08/04/23 21:29 Total Protein 6.1 g/dL (6.6-8.7 ) L D 08/05/23 04:57 Albumin 3.1 g/dL (3.5-5.2 ) L 08/05/23 04:57 Globulin 3.0 g/dL (1.3-4.6 ) 08/05/23 04:57 Vitamin B12 381 pg/mL (232-12 45) 08/05/23 04:57 Procalcitonin 70.60 ng/mL (0-0. 5) H 08/05/23 04:57 TSH 1.99 uIU/mL (0.27 -4.20) 08/05/23 04:57 Urine Color Yellow (Yellow) 08/04/23 22:46 Urine Appearance Cloudy (CLEAR) A 08/04/23 22:46 Urine pH 8 (5-7) H 08/04/23 22:46 Ur Specific Gravit y 1.010 (1.005-1.0 30) 08/04/23 22:46 Urine Protein 1+ (Negative) H 08/04/23 22:46 Urine Glucose (UA) Norm (Normal) 08/04/23 22:46 Urine Ketones Negative (Negati ve) 08/04/23 22:46 Urine Blood 3+ (Negative) H 08/04/23 22:46 Urine Nitrate Negative (Negati ve) 08/04/23 22:46 Urine Bilirubin Neg (Negative) 08/04/23 22:46 Prot Sulfosalicyli c Acd Positive (Negati ve) 08/04/23 22:46 Urine Urobilinogen Neg mg/dL (Negati ve) 08/04/23 22:46 Ur Leukocyte Demetria ase 2+ (Negative) H 08/04/23 22:46 Urine RBC >100 /hpf (0-2) H 08/04/23 22:46 Urine WBC >100 /hpf (0-5) H 08/04/23 22:46 Ur Squamous Epith Cells 0-4 /hpf (0-5) H 08/04/23 22:46 Amorphous Sediment Not Reportable 08/04/23 22:46 Urine Bacteria 1+ /hpf (NONE) H 08/04/23 22:46 SARS-CoV-2 Ag (Rap id) negative (Negati ve) 08/04/23 22:47 Other Coding Information Prolonged care (total time indicated above or notated here) (Reviewing chart, exam patient, ordering and reviewing imaging results with concerns for possible obstructive nephropathy which has been ruled out now, repeating BMP, replacing potassium 40 mEq orally)
[2023-08-05] MEDS: potassium chloride ER 20 mEq Tablet 40 MEQ PO (12:32)
[2023-08-05] MEDS: artificial tears Op Soln 15 mL Btl 1 DROP EYE-BOTH ×2 (12:36→18:27)
[2023-08-05 16:49] LABS: Blood Urea Nitrogen 35 mg/dL (8-23); Calcium 8.7 mg/dL (8.5-10.5); Carbon Dioxide 20 mmol/L (22-29); Chloride 107 mmol/L (98-107); Glucose 99 mg/dL (65-115); Osmolality Calculated 290 mOsm/kg (285-295); Sodium 136 mmol/L (136-145)
[2023-08-05 16:51] LABS: Anion Gap 13.7 (5-19); Potassium 4.7 mmol/L (3.5-5.1)
[2023-08-05] MEDS: tamsulosin 0.4 mg Capsule PO (18:27)
[2023-08-05] MEDS: finasteride 5 mg Tablet PO (21:19)
[2023-08-06] VITALS (61 sets, daily range): BP systolic 141–176; BP diastolic 62–95; PULSE 99–127; RESP 16–40; TEMP 38.6–39; O2SAT 89–99
[2023-08-06] MEDS: famotidine 20 mg/2 mL INJ IVP ×2 (01:54→13:44)
[2023-08-06] MEDS: enoxaparin 40 mg/0.4 mL Syringe SUBCUT (01:54)
[2023-08-06 04:22] LABS: Basophils % 0.4 %; Eosinophils # 0.1 10^3/uL (0.0-0.8); Eosinophils % 1.1 %; Hematocrit 40.2 % (37-53); Lymphocytes # 0.3 10^3/uL (0.8-4.8); Lymphocytes % 3.6 %; Mean Corpuscular HGB Conc 31.8 g/dL (30-55); Mean Corpuscular Hemoglobin 27.2 pg (27-33); Mean Corpuscular Volume 85.4 fl (82-101); Mean Platelet Volume 11.2 fL (7.4-10.4); Monocytes # 0.4 10^3/uL (0.2-0.9); Monocytes % 4.8 %; Neutrophils % 88.8 %; Nucleated Red Blood Cells % 0 %; Platelet Count 146 10^3/cmm (157-399); Red Blood Count 4.71 10^6/uL (3.85-5.65); White Blood Count 9.23 10^3/uL (3.29-11.43)
[2023-08-06 04:37] LABS: Chol HDL Ratio 4.71 mg/dL (1.0-5.00); Cholesterol 113 mg/dL (0-200); HDL Cholesterol 24 mg/dL (60-100); LDL Cholesterol Calculated 54 mg/dL (50-129); Magnesium 1.5 mg/dL (1.7-2.3); Phosphorus 2.2 mg/dL (2.5-4.5); Triglycerides 176 mg/dL (0-150); VLDL Cholestrol Calculation 35 mg/dL (0-30)
[2023-08-06 04:43] LABS: Estmated Average Glucose 108; Hemoglobin A1C 5.4 % (4.0-6.0)
[2023-08-06 04:45] LABS: Alanine Aminotransferase 14 U/L (0-41); Albumin Level 2.9 g/dL (3.5-5.2); Alkaline Phosphatase 78 U/L (40-130); Anion Gap 13.2 (5-19); Aspartate Amino Transferase 23 U/L (0-40); Blood Urea Nitrogen 31 mg/dL (8-23); Calcium 8.4 mg/dL (8.5-10.5); Carbon Dioxide 22 mmol/L (22-29); Chloride 108 mmol/L (98-107); Globulin 3.1 g/dL (1.3-4.6); Glucose 99 mg/dL (65-115); Osmolality Calculated 295 mOsm/kg (285-295); Potassium 4.2 mmol/L (3.5-5.1); Sodium 139 mmol/L (136-145); Total Bilirubin 0.5 mg/dL (0.15-1.2)
[2023-08-06 04:55] LABS: Folate Level 2.8 ng/mL (4.5-32.2)
[2023-08-06] MEDS: piperacillin-tazobactam 3.375 GM in sodium chloride 0.9% (plus) 50 ML IV ×3 (06:04→23:16)
[2023-08-06] MEDS: aspirin 81 mg EC Tablet PO (08:43)
[2023-08-06] MEDS: artificial tears Op Soln 15 mL Btl 1 DROP EYE-BOTH ×2 (08:43→17:56)
[2023-08-06] MEDS: sodium chloride 0.9% 1,000 ML 100 ML IV ×2 (08:44→17:50)
[2023-08-06] MEDS: ipratropium-albuterol 3 mL Neb INHALATION ×2 (08:53→15:09)
--- NOTE | 2023-08-06 11:09 | P.PN_ITS ---
Subjective Subjective: Patient with aphasia. I am able to understand a few words however he is speech is hurried and I am unable to understand. Vitals/I&O/Wt Last Vital Signs Temp 101.4 F H 08/06/23 07:33 Pulse 103 H 08/06/23 08:59 Resp 22 H 08/06/23 08:54 BP 161/81 08/06/23 07:33 Pulse Ox 95 08/06/23 08:54 O2 Del Method Nasal Cannula 08/06/23 08:54 O2 Flow Rate 3 08/06/23 08:54 08/05/23 08/06/23 08/06/23 22:59 06:59 14:59 Intake Total 50 / 1454 1050 / 2504 240 / 240 Output Total 1200 / 1725 700 / 2425 550 / 550 Balance -1150 / -271 350 / 79 -310 / -310 Weight last 48 hrs Weight 90.718 kg Physical Exam Narrative: Elderly male in no acute distress. Right thigh is abnormal. Heart regular normal S1-S2 without murmurs clicks gallops or rubs Lungs clear to auscultation anteriorly Abdomen distended mild diffuse tenderness. Normal bowel sounds Extremities no clubbing cyanosis or edema Urinary Catheter Management: Madrigal: Cath Placed During This Visit: yes Reason for Continuing Indwelling Catheter: Chronic Indwelling Urinary Catheter on Admission Urinary Catheter Date of Insertion: 08/05/23 Urinary Catheter Time of Insertion: 02:06 Data 08/06/23 03:36 08/06/23 03:36 Micro: Microbiology 08/04/23 22:46 Urine Culture - Preliminary Urine,Clean Catch Gram Negative Rods 08/04/23 22:41 Blood Culture - Preliminary Blood NEGATIVE TO DATE 08/04/23 22:47 Blood Culture - Preliminary Blood Proteus mirabilis A&P Assessment and plan (1) Sepsis: Proteus in 1 of 4 blood cultures. Sensitivities pending. Qualifiers: Acute renal failure type: unspecified Sepsis acute organ dysfunction status: with acute organ dysfunction Sepsis type: sepsis due to unspecified organism Severe sepsis acute organ dysfunction type: acute renal failure Severe sepsis shock status: with septic shock Qualified Code(s): A41.9 - Sepsis, unspecified organism; R65.21 - Severe sepsis with septic shock; N17.9 - Acute kidney failure, unspecified (2) UTI (urinary tract infection): Likely secondary to Proteus. (3) GERD (gastroesophageal reflux disease): Patient continues on PPI. (4) SVT (supraventricular tachycardia): The tachycardiac was at a rate of approximately 150 questionable A-fib flutter (5) Diastolic heart failure of unknown etiology: Stable/compensated at this time (6) Urinary retention: History of chronic indwelling Madrigal questionable need for Flomax and Proscar (7) BPH (benign prostatic hyperplasia): As above Qualifiers: Lower urinary tract symptom presence: symptoms present Lower urinary tract symptom detail: urinary retention Qualified Code(s): N40.1 - Benign prostatic hyperplasia with lower urinary tract symptoms; R33.8 - Other retention of urine (8) Ventricular premature beats: Per history (9) Dementia of frontal lobe type: Attestations Medical Necessity Statement*: He needs less than 2 days of hospitalization. He is here for management of urosepsis with IV fluids and antibiotics. Coding Level of Care Code Acute Code for [facility] Diagnoses Sepsis A41.9; R65.21; N17.9 Acute renal failure type: unspecified Sepsis acute organ dysfunction status: with acute organ dysfunction Sepsis type: sepsis due to unspecified organism Severe sepsis acute organ dysfunction type: acute renal failure Severe sepsis shock status: with septic shock UTI (urinary tract infection) N39.0 GERD (gastroesophageal reflux disease) K21.9 SVT (supraventricular tachycardia) I47.1 Diastolic heart failure of unknown etiology I50.30 Urinary retention R33.9 BPH (benign prostatic hyperplasia) N40.1; R33.8 Lower urinary tract symptom presence: symptoms present Lower urinary tract symptom detail: urinary retention Ventricular premature beats I49.3 Dementia of frontal lobe type G31.09; F02.80
[2023-08-06] MEDS: tamsulosin 0.4 mg Capsule PO (17:52)
[2023-08-06] MEDS: acetaminophen 325 mg Tablet 650 MG PO (19:29)
[2023-08-06] MEDS: finasteride 5 mg Tablet PO (20:31)
--- NOTE | 2023-08-06 21:13 | XRR_ITS ---
PROCEDURE INFORMATION: Exam: XR Chest Exam date and time: 08/06/2023 9:29 PM Age: 77 years old Clinical indication: Device placement; Picc; Additional info: Picc line placment TECHNIQUE: Imaging protocol: Radiologic exam of the chest. Views: 1 view. COMPARISON: CR (CHEST, ) 08/04/2023 9:21 PM FINDINGS: Tubes, catheters and devices: There is a PICC line whose tip terminates at the cavoatrial junction. Lungs: Lung volumes are decreased. There is patchy airspace disease left lower lobe that has progressed from previous exam and may be secondary to pneumonia. Pleural spaces: Unremarkable. No pleural effusion. No pneumothorax. Heart/Mediastinum: Cardiac silhouette stable from previous exam. Bones/joints: Unremarkable for age. XR/XR chest 1V portable [id number] IMPRESSION: 1. Interval placement of right-sided PICC line that appears in satisfactory position. 2. Worsening left lower lobe infiltrate presumed secondary to pneumonia.
--- NOTE | 2023-08-06 21:20 | PC.NURSE ---
Consent obtained verbally by nurse, myself, and the patient. All risk and benefits discussed. Risk included but not limited to dvt and infection. RUE scanned with US and the basilic vein was the best option. Vein was straight, 5 mm, and free of visible clot. Pt draped in usual sterile fashion. Using real time US, lidocaine injected, vein accessed, and picc floated into positon. Chest xray obtained and waiting on confirmation. EBL less then 5 ml. No bleeding no hematoma. Pt arm circumference is 29cm at 10 cm above the ac fossa.
--- NOTE | 2023-08-06 21:40 | PC.NURSE ---
After reviewing chest xray picc pulled back 4 cm
[2023-08-07] VITALS (25 sets, daily range): BP systolic 150–170; BP diastolic 82–93; PULSE 70–120; RESP 16–40; TEMP 37.5–39.1; O2SAT 90–94
[2023-08-07] MEDS: famotidine 20 mg/2 mL INJ IVP ×2 (01:56→14:28)
[2023-08-07] MEDS: enoxaparin 40 mg/0.4 mL Syringe SUBCUT (01:56)
[2023-08-07] MEDS: ipratropium-albuterol 3 mL Neb INHALATION ×4 (02:05→20:21)
[2023-08-07 05:08] LABS: Magnesium 1.8 mg/dL (1.7-2.3); Phosphorus 2.1 mg/dL (2.5-4.5)
[2023-08-07] MEDS: piperacillin-tazobactam 3.375 GM in sodium chloride 0.9% (plus) 50 ML IV ×3 (05:34→23:17)
[2023-08-07] MEDS: artificial tears Op Soln 15 mL Btl 1 DROP EYE-BOTH ×2 (08:13→18:07)
[2023-08-07] MEDS: aspirin 81 mg EC Tablet PO (08:13)
[2023-08-07] MEDS: acetaminophen 325 mg Tablet 650 MG PO ×2 (08:13→23:29)
[2023-08-07] MEDS: sodium chloride 0.9% 1,000 ML 100 ML IV (14:29)
[2023-08-07] MEDS: tamsulosin 0.4 mg Capsule PO (18:07)
[2023-08-07] MEDS: vancomycin 1,500 MG/300 ML PIGGYBACK 200 MG IV (18:08)
--- NOTE | 2023-08-07 18:14 | P.PN_ITS ---
Subjective Subjective: Patient with aphasia. Tells me he is on digoxin. Also tells me that the frozen ice is hard as a rock Vitals/I&O/Wt Last Vital Signs Temp 99.5 F 08/07/23 15:43 Pulse 102 H 08/07/23 15:43 Resp 26 H 08/07/23 15:43 BP 164/90 08/07/23 15:43 Pulse Ox 93 08/07/23 15:43 O2 Del Method Nasal Cannula 08/07/23 15:43 O2 Flow Rate 3 08/07/23 13:23 08/07/23 08/07/23 08/07/23 06:59 14:59 22:59 Intake Total 1050 / 2390 290 / 290 Output Total 1100 / 2250 925 / 925 Balance -50 / 140 -635 / -635 Physical Exam Narrative: Elderly male in no acute distress. Appears more alert today eating pudding wall in the room. Heart regular normal S1-S2 without murmurs clicks gallops or rubs Lungs clear to auscultation anteriorly increased respiratory rate Abdomen distended mild diffuse tenderness. Normal bowel sounds Extremities no clubbing cyanosis or edema Urinary Catheter Management: Madrigal: Cath Placed During This Visit: yes Reason for Continuing Indwelling Catheter: Chronic Indwelling Urinary Catheter on Admission Urinary Catheter Date of Insertion: 08/05/23 Urinary Catheter Time of Insertion: 02:06 Data 08/06/23 03:36 08/06/23 03:36 Micro: Microbiology 08/04/23 22:46 Urine Culture - Final Urine,Clean Catch Proteus mirabilis 08/04/23 22:47 Blood Culture - Preliminary Blood Proteus mirabilis A&P Assessment and plan (1) Sepsis: Proteus in 1 of 4 blood cultures. Broadly sensitive; including zosyn Qualifiers: Acute renal failure type: unspecified Sepsis acute organ dysfunction status: with acute organ dysfunction Sepsis type: sepsis due to unspecified organism Severe sepsis acute organ dysfunction type: acute renal failure Severe sepsis shock status: with septic shock Qualified Code(s): A41.9 - Sepsis, unspecified organism; R65.21 - Severe sepsis with septic shock; N17.9 - Acute kidney failure, unspecified (2) UTI (urinary tract infection): Likely secondary to Proteus. (3) GERD (gastroesophageal reflux disease): Patient continues on PPI. (4) SVT (supraventricular tachycardia): The tachycardiac was at a rate of approximately 150 questionable A-fib flutter (5) Diastolic heart failure of unknown etiology: Stable/compensated at this time (6) Urinary retention: History of chronic indwelling Madrigal questionable need for Flomax and Proscar (7) BPH (benign prostatic hyperplasia): As above Qualifiers: Lower urinary tract symptom presence: symptoms present Lower urinary tract symptom detail: urinary retention Qualified Code(s): N40.1 - Benign p rostatic hyperplasia with lower urinary tract symptoms; R33.8 - Other retention of urine (8) Ventricular premature beats: Per history (9) Dementia of frontal lobe type: (10) Left lower lobe pulmonary infiltrate: Seen on chest x-ray for PICC line placement. Patient with aphasia and diagnosis of dementia could be aspiration although it is in the left lower lobe. Will add vancomycin since patient is from retirement. FREIGHT SHIPPING AGENT consult and diet changed. Attestations Medical Necessity Statement*: Patient with sepsis due to UTI and possibly left lower lobe pneumonia. He is continuing to have fevers additional antibiotics ordered will need 2 midnight or longer stay. Will change to full admission Coding Level of Care Code Acute Code for [facility] Diagnoses Sepsis A41.9; R65.21; N17.9 Acute renal failure type: unspecified Sepsis acute organ dysfunction status: with acute organ dysfunction Sepsis type: sepsis due to unspecified organism Severe sepsis acute organ dysfunction type: acute renal failure Severe sepsis shock status: with septic shock UTI (urinary tract infection) N39.0 GERD (gastroesophageal reflux disease) K21.9 SVT (supraventricular tachycardia) I47.1 Diastolic heart failure of unknown etiology I50.30 Urinary retention R33.9 BPH (benign prostatic hyperplasia) N40.1; R33.8 Lower urinary tract symptom presence: symptoms present Lower urinary tract symptom detail: urinary retention Ventricular premature beats I49.3 Dementia of frontal lobe type G31.09; F02.80 Left lower lobe pulmonary infiltrate R91.8
[2023-08-07] MEDS: finasteride 5 mg Tablet PO (20:48)
[2023-08-08] VITALS (20 sets, daily range): BP systolic 112–179; BP diastolic 67–97; PULSE 100–127; RESP 19–35; TEMP 36.8–39.6; O2SAT 90–93
[2023-08-08] MEDS: ipratropium-albuterol 3 mL Neb INHALATION ×4 (01:41→21:24)
[2023-08-08] MEDS: enoxaparin 40 mg/0.4 mL Syringe SUBCUT (02:07)
[2023-08-08 05:05] LABS: Basophils % 0.2 %; Hematocrit 40.4 % (37-53); Lymphocytes # 0.4 10^3/uL (0.8-4.8); Lymphocytes % 6.6 %; Mean Corpuscular HGB Conc 31.7 g/dL (30-55); Mean Corpuscular Hemoglobin 26.8 pg (27-33); Mean Corpuscular Volume 84.7 fl (82-101); Mean Platelet Volume 11.5 fL (7.4-10.4); Monocytes # 0.4 10^3/uL (0.2-0.9); Monocytes % 5.5 %; Neutrophils # 5.58 10^3/uL (1.8-7.7); Neutrophils % 87.2 %; Nucleated Red Blood Cells % 0 %; Platelet Count 112 10^3/cmm (157-399); Red Blood Count 4.77 10^6/uL (3.85-5.65); Red Cell Distribution Width 14.4 % (12.1-15.1); White Blood Count 6.39 10^3/uL (3.29-11.43)
[2023-08-08 05:23] LABS: Magnesium 2.1 mg/dL (1.7-2.3); Phosphorus 2.8 mg/dL (2.5-4.5)
[2023-08-08 05:24] LABS: Anion Gap 13.9 (5-19); Blood Urea Nitrogen 23 mg/dL (8-23); Calcium 8.6 mg/dL (8.5-10.5); Carbon Dioxide 24 mmol/L (22-29); Chloride 105 mmol/L (98-107); Glucose 100 mg/dL (65-115); Osmolality Calculated 292 mOsm/kg (285-295); Potassium 3.9 mmol/L (3.5-5.1); Sodium 139 mmol/L (136-145)
[2023-08-08] MEDS: piperacillin-tazobactam 3.375 GM in sodium chloride 0.9% (plus) 50 ML IV ×3 (06:18→23:54)
[2023-08-08] MEDS: aspirin 81 mg EC Tablet PO (10:17)
--- NOTE | 2023-08-08 16:13 | CTR_ITS ---
PROCEDURE INFORMATION: Exam: CTA Chest With Contrast Exam date and time: 08/08/2023 4:41 PM Age: 77 years old Clinical indication: Shortness of breath; Additional info: Hypoxia tachycardia TECHNIQUE: Imaging protocol: Computed tomographic angiography of the chest with contrast. Exam focused on the arteries. 3D rendering (Not supervised by radiologist): MIP and/or 3D reconstructed images were created by the technologist. Radiation optimization: All CT scans at this facility use at least one of these dose optimization techniques: automated exposure control; mA and/or kV adjustment per patient size (includes targeted exams where dose is matched to clinical indication); or iterative reconstruction. Contrast material: OMNI 350; Contrast volume: 100 ml; Contrast route: INTRAVENOUS (IV); REPORTING DATA: Count of CT and Cardiac NM exams in prior 12 months: This patient has received [address] and 0 known cardiac nuclear medicine studies in the 12 months prior to the current study. COMPARISON: CR (CHEST, ) 08/06/2023 9:29 PM RADIATION DOSE METRICS: Total DLP (mGy-cm): 461 FINDINGS: Limitations: Study somewhat limited due to streak artifact created by the patient being scanned with the arms at the sides. Study is significantly limited by patient respiratory motion. Tubes, catheters and devices: Right PICC line tip is in the superior vena cava. Pulmonary arteries: Allowing for respiratory motion artifact no large or central pulmonary emboli are identified. Evaluation of peripheral pulmonary arteries is limited, especially at the lung bases. Aorta: There is no thoracic aortic aneurysm or dissection. Lungs: There is consolidation in the right lower lobe consistent with pneumonia. There is a smaller area of consolidation in the left lower lobe consistent with pneumonia. There is some mild patchy infiltrate in the lingula and right middle lobe which may represent additional pneumonitis. Pleural spaces: There are small bilateral pleural effusions. Heart: Unremarkable. No cardiomegaly. No pericardial effusion. Coronary arteries: There is moderate atherosclerotic calcification of the coronary arteries. Lymph nodes: There are calcified left hilar lymph nodes in keeping with old granulomatous disease. Bones/joints: Unremarkable. No acute fracture. Soft tissues: Unremarkable. CT/CT angio chest PE protcl [id number] IMPRESSION: 1. Bilateral pneumonia. 2. Bilateral small pleural effusions 3. Limited examination due to patient respiratory motion but no gross evidence of pulmonary embolism.
--- NOTE | 2023-08-08 16:14 | PM.PN ---
Subjective Subjective: 08/08/2023 patient complains of shortness of breath when we set him up in bed and listen posteriorly. He says he needs more oxygen he cannot breathe. Prior to that he denied trouble breathing, pain, nausea vomiting. He states that he has a good appetite and eating too much . Vitals/I&O/Wt Last Vital Signs Temp 98.9 F 08/08/23 15:50 Pulse 127 H 08/08/23 15:50 Resp 29 H 08/08/23 15:50 BP 151/89 08/08/23 15:50 Pulse Ox 90 08/08/23 15:50 O2 Del Method Nasal Cannula 08/08/23 15:50 O2 Flow Rate 3 08/08/23 15:50 08/08/23 08/08/23 08/08/23 06:59 14:59 22:59 Intake Total 50 / 630 50 / 50 Output Total 600 / 2175 550 / 550 Balance -550 / -1545 -500 / -500 Physical Exam Narrative: Elderly male looks more acutely ill today. He is back to unable to really open his eyes he will converse. Appears more alert today eating pudding wall in the room. Heart regular normal S1-S2 without murmurs clicks gallops or rubs Lungs clear to auscultation anteriorly increased respiratory rate Abdomen distended mild diffuse tenderness. Normal bowel sounds Extremities no clubbing cyanosis or edema Urinary Catheter Management: Madrigal: Cath Placed During This Visit: yes Reason for Continuing Indwelling Catheter: Chronic Indwelling Urinary Catheter on Admission Urinary Catheter Date of Insertion: 08/05/23 Urinary Catheter Time of Insertion: 02:06 Data 08/08/23 04:35 08/08/23 04:35 Micro: Microbiology 08/04/23 22:47 Blood Culture - Final Blood Proteus mirabilis 08/08/23 10:20 Bacterial Antigens - Final Urine Kidney 08/04/23 22:46 Urine Culture - Final Urine,Clean Catch Proteus mirabilis A&P Assessment and plan (1) Acute and chronic respiratory failure: Increasing oxygen requirements with subjective complaints of shortness of breath and new tachycardia and hypertension. Will order stat CTA chest for PE versus worsening pneumonia versus other While I do not auscultate wheezing he has limited air movement may need to treat for COPD which he carries this diagnosis but no treatment at long-term with inhalers. (2) Sepsis: Proteus in 1 of 4 blood cultures. Broadly sensitive; including zosyn Currently on Zosyn and vancomycin for Proteus sepsis from urinary tract as well as a left lower lobe pneumonia. Will repeat blood cultures today Qualifiers: Acute renal failure type: unspecified Sepsis acute organ dysfunction status: with acute organ dysfunction Sepsis type: sepsis due to unspecified organism Severe sepsis acute organ dysfunction type: acute renal failure Severe sepsis shock status: with septic shock Qualified Code(s): A41.9 - Sepsis, unspecified organism; R65.21 - Severe sepsis with septic shock; N17.9 - Acute kidney failure, unspecified (3) UTI (urinary tract infection): Proteus UTI. (4) GERD (gastroesophageal reflux disease): Patient on Pepcid every 12. (5) SVT (supraventricular tachycardia): Per history (6) Diastolic heart failure of unknown etiology: Stable/compensated at this time (7) Urinary retention: History of chronic indwelling Madrigal questionable need for Flomax and Proscar (8) BPH (benign prostatic hyperplasia): As above Qualifiers: Lower urinary tract symptom presence: symptoms present Lower urinary tract symptom detail: urinary retention Qualified Code(s): N40.1 - Benign prostatic hyperplasia with lower urinary tract symptoms; R33.8 - Other retention of urine (9) Ventricular premature beats: Per history (10) Dementia of frontal lobe type: EMPLOYEE WELLNESS/FITNESS COORDINATOR evaluated patient for swallow and also performed MoCA of 8 out of 30 (11) Left lower lobe pulmonary infiltrate: Seen on chest x-ray for PICC line placement. Patient with aphasia and diagnosis of dementia could be aspiration although it is in the left lower lobe. Added vancomycin since patient is from long-term. EMPLOYEE WELLNESS/FITNESS COORDINATOR consult and diet changed. (12) DNR (do not resuscitate) discussion: Due to patient's worsening symptoms I I asked if his breathing were to stop or his heart were to stop would he want resuscitation including mechanical ventilation chest compressions and IV cardiac medications and shocking. He adamantly shook his head no the minute I said mechanical ventilation. Order to allow natural . Attestations Medical Necessity Statement*: Patient with sepsis due to UTI and possibly left lower lobe pneumonia. He is continuing to have fevers additional antibiotics ordered will need 2 midnight or longer stay. Will change to full admission Coding Level of Care Code Acute Code for [facility] Diagnoses Acute and chronic respiratory failure J96.20 Sepsis A41.9; R65.21; N17.9 Acute renal failure type: unspecified Sepsis acute organ dysfunction status: with acute organ dysfunction Sepsis type: sepsis due to unspecified organism Severe sepsis acute organ dysfunction type: acute renal failure Severe sepsis shock status: with septic shock UTI (urinary tract infection) N39.0 GERD (gastroesophageal reflux disease) K21.9 SVT (supraventricular tachycardia) I47.1 Diastolic heart failure of unknown etiology I50.30 Urinary retention R33.9 BPH (benign prostatic hyperplasia) N40.1; R33.8 Lower urinary tract symptom presence: symptoms present Lower urinary tract symptom detail: urinary retention Ventricular premature beats I49.3 Dementia of frontal lobe type G31.09; F02.80 Left lower lobe pulmonary infiltrate R91.8 DNR (do not resuscitate) discussion Z71.38
[2023-08-08] MEDS: vancomycin 1,500 MG/300 ML PIGGYBACK 200 MG IV (18:12)
[2023-08-08] MEDS: tamsulosin 0.4 mg Capsule PO (18:12)
[2023-08-08] MEDS: acetaminophen 325 mg Tablet 650 MG PO (18:12)
[2023-08-08] MEDS: finasteride 5 mg Tablet PO (20:50)
[2023-08-08] MEDS: metoprolol tartrate 25 mg Tablet PO (20:50)
[2023-08-09] VITALS (12 sets, daily range): BP systolic 105–153; BP diastolic 64–83; PULSE 92–108; RESP 19–32; TEMP 37.1–37.7; O2SAT 91–95
[2023-08-09] MEDS: ipratropium-albuterol 3 mL Neb INHALATION ×4 (02:18→20:07)
[2023-08-09] MEDS: piperacillin-tazobactam 3.375 GM in sodium chloride 0.9% (plus) 50 ML IV (06:38)
[2023-08-09] MEDS: aspirin 81 mg EC Tablet PO (08:26)
[2023-08-09] MEDS: artificial tears Op Soln 15 mL Btl 1 DROP EYE-BOTH (08:26)
[2023-08-09] MEDS: metoprolol tartrate 25 mg Tablet PO ×2 (08:26→20:10)
--- NOTE | 2023-08-09 09:35 | US_ITS ---
WS: [id number] RENAL ULTRASOUND HISTORY: r.o renal vein thrombosis ? on CT 08/04/23 COMPARISON: CT 08/03/2023 TECHNIQUE: 2-D and color Doppler imaging of the kidney submitted. Right kidney: 12.1 cm x 5.6 cm x 5.9 cm. Cortex: 1.4 cm Normal echogenicity with no hydronephrosis or mass. Left kidney: 11.4 cm x 5.7 cm x 6.1 cm. Cortex: 1.2 cm Normal echogenicity with no hydronephrosis or mass. Aorta: Normal. Urinary Bladder: Nondistended bladder. Madrigal catheter is present. This study is not adequate to exclude renal vein thrombosis. IMPRESSION: Normal renal ultrasound. Renal vein thrombosis cannot be excluded on a renal ultrasound. Doppler evaluation of the renal veins and arteries would be technically difficult on this patient due to body habitus. If there is continu ed concern CT evaluation with IV contrast may be necessary. There are no secondary findings for renal vein thrombosis.
[2023-08-09 09:44] LABS: Basophils % 0.3 %; Eosinophils % 0.2 %; Hematocrit 41.5 % (37-53); Lymphocytes # 0.4 10^3/uL (0.8-4.8); Lymphocytes % 6.6 %; Mean Corpuscular Hemoglobin 26.8 pg (27-33); Mean Corpuscular Volume 83.7 fl (82-101); Mean Platelet Volume 11.5 fL (7.4-10.4); Monocytes # 0.3 10^3/uL (0.2-0.9); Monocytes % 4.7 %; Neutrophils % 86.6 %; Nucleated Red Blood Cells % 0 %; Platelet Count 137 10^3/cmm (157-399); Red Blood Count 4.96 10^6/uL (3.85-5.65); Red Cell Distribution Width 14.8 % (12.1-15.1); White Blood Count 5.77 10^3/uL (3.29-11.43)
[2023-08-09] MEDS: meropenem 1,000 MG in sodium chloride 0.9% (plus) 50 ML 100 MG IV ×2 (10:11→17:52)
[2023-08-09 10:22] LABS: Slide Review Slide Review Perform
[2023-08-09] MEDS: vancomycin 1,500 MG/300 ML PIGGYBACK 200 MG IV (11:48)
--- NOTE | 2023-08-09 16:48 | P.PN_ITS ---
Subjective Subjective: 08/08/2023: Still having fevers. Repeat blood culture. 08/09/2023. Patient still with temperature spikes. Did a phone consult with Dr. Roldan from infectious disease. Changed from Zosyn to meropenem. Check for C. difficile toxin. Check renal ultrasound for renal vein thrombosis. Respiratory viral panel. This is unable to be done at this time due to no reagents. Change Madrigal catheter as Madrigal was placed prior to antibiotics being started. Vitals/I&O/Wt Last Vital Signs Temp 99.8 F H 08/09/23 11:30 Pulse 97 08/09/23 13:30 Resp 26 H 08/09/23 13:30 BP 141/74 08/09/23 11:30 Pulse Ox 93 08/09/23 13:30 O2 Del Method Nasal Cannula 08/09/23 13:30 O2 Flow Rate 5 08/09/23 13:30 08/09/23 08/09/23 08/09/23 06:59 14:59 22:59 Intake Total 250 / 650 940 / 940 Output Total 600 / 1700 Balance -350 / -1050 940 / 940 Physical Exam Narrative: Elderly male appears acutely ill. Very pale. While he is talkative he really does not open his eyes and engage. Neurologically unchanged overall. Heart regular normal S1-S2 without murmurs clicks gallops or rubs Lungs coughing with clear liquids, anterior rhonchi. Bilateral lower lobes with rhonchi as well Abdomen distended mild diffuse tenderness. Normal bowel sounds Extremities no clubbing cyanosis or edema Urinary Catheter Management: Madrigal: Cath Placed During This Visit: yes Reason for Continuing Indwelling Catheter: Chronic Indwelling Urinary Catheter on Admission Urinary Catheter Date of Insertion: 08/05/23 Urinary Catheter Time of Insertion: 02:06 Data 08/09/23 09:34 08/08/23 04:35 Micro: Microbiology 08/08/23 16:25 Blood Culture - Preliminary Blood NEGATIVE TO DATE 08/08/23 16:21 Blood Culture - Preliminary Blood NEGATIVE TO DATE 08/04/23 22:47 Blood Culture - Final Blood Proteus mirabilis A&P Assessment and plan (1) Fever: Persistent fever without defervesced since. Consulted Dr. Pace via phone and chart review. Recommendations are as follows: * Change Zosyn to meropenem as Proteus can have an induction of beta-lactam resistance once started. Despite sensitivity results. * Check stool for C. difficile. Nursing reports loose bowels yesterday x3 yellow in appearance. No BM as of middle of day today. Will ask for specimen. * CT on 1021 commented about a possible renal vein thrombosis. We will follow- up with a second renal ultrasound looking for renal vein thrombosis. * Check 1 Madrigal catheter was placed. Madrigal catheter was placed on 08/04/2023. His UA was positive the following day and antibiotic started then. Thus we will change Madrigal catheter today now that patient has been on antibiotics. * Recommended respiratory panel viral panel. Spoke with lab and unfortunately they do not have reagents at this time. Will order but not start any treatment until able to obtain swabs. (2) Acute and chronic respiratory failure: Secondary to pneumonia diagnosed on 08/07/2023. Maintaining O2 sats on 5 L. Patient does appear to be an aspiration risk. He also has underlying COPD. (3) Sepsis: Secondary to Proteus. As above we will change to meropenem for Proteus. 08/08/2023 blood cultures are negative at this time. Qualifiers: Acute renal failure type: unspecified Sepsis acute organ dysfunction status: with acute organ dysfunction Sepsis type: sepsis due to unspecified organism Severe sepsis acute organ dysfunction type: acute renal failure Severe sepsis shock status: with septic shock Qualified Code(s): A41.9 - Sepsis, unspecified organism; R65.21 - Severe sepsis with septic shock; N17.9 - Acute kidney failure, unspecified (4) UTI (urinary tract infection): Proteus UTI. (5) GERD (gastroesophageal reflux disease): Patient on Pepcid every 12. (6) SVT (supraventricular tachycardia): Per history Started beta-iván yesterday as patient was showing sinus tachycardia and elevated blood pressure. (7) Diastolic heart failure of unknown etiology: Stable/compensated at this time Fluids stopped yesterday. (8) Urinary retention: Unknown if patient had chronic indwelling Madrigal catheter. (9) Dementia of frontal lobe type: PRESCHOOL LEAD TEACHER evaluated patient for swallow and also performed MoCA of 8 out of 30 (10) DNR (do not resuscitate) discussion: On 08/08/2023. Allow natural . Attestations Medical Necessity Statement*: Patient requires continued hospitalization for persistent and never defervesced saying fever. He has acute on chronic respiratory failure. Multiple adjustments made today. Coding Level of Care Code Acute Code for [facility] Fwd Diagnoses Fever R50.9 Acute and chronic respiratory failure J96.20 Sepsis A41.9; R65.21; N17.9 Acute renal failure type: unspecified Sepsis acute organ dysfunction status: with acute organ dysfunction Sepsis type: sepsis due to unspecified organism Severe sepsis acute organ dysfunction type: acute renal failure Severe sepsis shock status: with septic shock UTI (urinary tract infection) N39.0 GERD (gastroesophageal reflux disease) K21.9 SVT (supraventricular tachycardia) I47.1 Diastolic heart failure of unknown etiology I50.30 Urinary retention R33.9 Dementia of frontal lobe type G31.09; F02.80 DNR (do not resuscitate) discussion Z71.89
[2023-08-09] MEDS: tamsulosin 0.4 mg Capsule PO (17:49)
[2023-08-09] MEDS: finasteride 5 mg Tablet PO (20:10)
[2023-08-10] VITALS (13 sets, daily range): BP systolic 116–151; BP diastolic 61–75; PULSE 75–97; RESP 17–31; TEMP 36.6–37.3; O2SAT 91–94
[2023-08-10] MEDS: meropenem 1,000 MG in sodium chloride 0.9% (plus) 50 ML 100 MG IV ×3 (01:25→17:34)
[2023-08-10] MEDS: ipratropium-albuterol 3 mL Neb INHALATION ×3 (02:34→14:08)
[2023-08-10] MEDS: vancomycin 1,500 MG/300 ML PIGGYBACK 200 MG IV (05:09)
[2023-08-10 07:23] LABS: Blood Urea Nitrogen 26 mg/dL (8-23); Calcium 7.9 mg/dL (8.5-10.5); Carbon Dioxide 22 mmol/L (22-29); Chloride 106 mmol/L (98-107); Glucose 112 mg/dL (65-115); Osmolality Calculated 296 mOsm/kg (285-295); Sodium 140 mmol/L (136-145)
[2023-08-10 07:25] LABS: Anion Gap 15.6 (5-19); Potassium 3.6 mmol/L (3.5-5.1)
[2023-08-10] MEDS: metoprolol tartrate 25 mg Tablet PO ×2 (09:47→19:32)
[2023-08-10] MEDS: aspirin 81 mg EC Tablet PO (09:48)
--- NOTE | 2023-08-10 15:06 | P.PN_ITS ---
Subjective Subjective: 08/08/2023: Still having fevers. Repeat blood culture. 08/09/2023. Patient still with temperature spikes. Did a phone consult with Dr. Roldan from infectious disease. Changed from Zosyn to meropenem. Check for C. difficile toxin. Check renal ultrasound for renal vein thrombosis. Respiratory viral panel. This is unable to be done at this time due to no reagents. Change Madrigal catheter as Madrigal was placed prior to antibiotics being started. 08/10/2023. No overnight fever. Patient is more awake able to eat. Vital signs are improved Vitals/I&O/Wt Last Vital Signs Temp 97.8 F 08/10/23 11:23 Pulse 85 08/10/23 14:15 Resp 22 H 08/10/23 14:08 BP 116/61 08/10/23 11:23 Pulse Ox 93 08/10/23 14:08 O2 Del Method Nasal Cannula 08/10/23 14:08 O2 Flow Rate 5 08/10/23 14:08 08/10/23 08/10/23 08/10/23 06:59 14:59 22:59 Intake Total 390 / 2620 590 / 590 Output Total 900 / 900 Balance -510 / 1720 590 / 590 Physical Exam Narrative: Elderly male appears less acutely ill. Very pale. is at bedside he is conversive. Neurologically alert and oriented. Heart regular normal S1-S2 without murmurs clicks gallops or rubs Lungs coughing with clear liquids, anterior rhonchi. Bilateral lower lobes with rhonchi as well Abdomen distended mild diffuse tenderness. Normal bowel sounds Extremities no clubbing cyanosis or edema Urinary Catheter Management: Madrigal: Cath Placed During This Visit: yes Reason for Continuing Indwelling Catheter: Chronic Indwelling Urinary Catheter on Admission Urinary Catheter Date of Insertion: 08/05/23 Urinary Catheter Time of Insertion: 02:06 Data 08/09/23 09:34 08/10/23 06:55 Micro: Microbiology 08/04/23 22:41 Blood Culture - Final Blood NO GROWTH AFTER 5 DAYS 08/08/23 16:25 Blood Culture - Preliminary Blood NEGATIVE TO DATE 08/08/23 16:21 Blood Culture - Preliminary Blood NEGATIVE TO DATE A&P Assessment and plan (1) Fever: No fever overnight. Continue: * meropenem as Proteus can have an induction of beta-lactam resistance once started. Despite sensitivity results. Home IV therapy order for [facility] completed * Continue vancomycin. Home IV therapy order for [facility] also completed * Check stool for C. difficile. Test is pending. * Ultrasound was unable to rule out renal vein thrombosis; however: There are no secondary findings for renal vein thrombosis. * Madrigal catheter replaced on 08/09/2023 due to initial Madrigal placed while patient still septic.. * Recommended respiratory panel viral panel. I am unclear if this was ever tested. (2) Acute and chronic respiratory failure: Secondary to pneumonia diagnosed on 08/07/2023. Maintaining O2 sats on 5 L. Patient does appear to be an aspiration risk. He also has underlying COPD. (3) Sepsis: Secondary to Proteus. 08/08/2023 blood cultures are negative at this time. Qualifiers: Acute renal failure type: unspecified Sepsis acute organ dysfunction status: with acute organ dysfunction Sepsis type: sepsis due to unspecified organism Severe sepsis acute organ dysfunction type: acute renal failure S evere sepsis shock status: with septic shock Qualified Code(s): A41.9 - Sepsis, unspecified organism; R65.21 - Severe sepsis with septic shock; N17.9 - Acute kidney failure, unspecified (4) UTI (urinary tract infection): Proteus UTI. (5) GERD (gastroesophageal reflux disease): Patient on Pepcid every 12. (6) SVT (supraventricular tachycardia): Per history Started beta-iván yesterday as patient was showing sinus tachycardia and elevated blood pressure. 08/10/2023. Heart rate and blood pressure markedly improved with the addition of beta-iván (7) Diastolic heart failure of unknown etiology: Stable/compensated at this time Fluids stopped yesterday. (8) Urinary retention: Patient and tell me patient did not have a chronic Madrigal. 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 (9) Dementia of frontal lobe type: INSULATION SPRAYER evaluated patient for swallow and also performed MoCA of 8 out of 30 (10) DNR (do not resuscitate) discussion: On 08/08/2023. Allow natural . Attestations Medical Necessity Statement*: Patient requires continued hospitalization for fever defervescense saying fever. He has acute on chronic respiratory failure. Coding Level of Care Code Acute Code for g Fwd Diagnoses Fever R50.9 Acute and chronic respiratory failure J96.20 Sepsis A41.9; R65.21; N17.9 Acute renal failure type: unspecified Sepsis acute organ dysfunction status: with acute organ dysfunction Sepsis type: sepsis due to unspecified organism Severe sepsis acute organ dysfunction type: acute renal failure Severe sepsis shock status: with septic shock UTI (urinary tract infection) N39.0 GERD (gastroesophageal reflux disease) K21.9 SVT (supraventricular tachycardia) I47.1 Diastolic heart failure of unknown etiology I50.30 Urinary retention R33.9 Dementia of frontal lobe type G31.09; F02.80 DNR (do not resuscitate) discussion Z71.89
[2023-08-10] MEDS: tamsulosin 0.4 mg Capsule PO (17:34)
[2023-08-10] MEDS: finasteride 5 mg Tablet PO (19:33)
[2023-08-10] MEDS: efferdent effervescent 1 EACH DENTAL (19:33)
[2023-08-10 21:40] LABS: Adenovirus Detected (NOT DETECT); Chlamydia Pneumoniae Not Detected (NOT DETECT); Coronavirus 229E,HKU1,NL63,OC4 Not Detected (NOT DETECT); Human Metapneumovirus Not Detected (NOT DETECT); Human Rhinovirus/Enterovirus Not Detected (NOT DETECT); Influenza A Not Detected (NOT DETECT); Influenza A H1 Not Detected (NOT DETECT); Influenza A H1-2009 Not Detected (NOT DETECT); Influenza A H3 Not Detected (NOT DETECT); Influenza B Not Detected (NOT DETECT); Mycoplasma Pneumoniae Not Detected (NOT DETECT); Parainfluenza Virus Type 1 Not Detected (NOT DETECT); Parainfluenza Virus Type 2 Not Detected (NOT DETECT); Parainfluenza Virus Type 3 Not Detected (NOT DETECT); Parainfluenza Virus Type 4 Not Detected (NOT DETECT); Respiratory Syncytial Virus A Not Detected (NOT DETECT); Respiratory Syncytial Virus B Not Detected (NOT DETECT); SARS-COV-2 Not Detected (NOT DETECT)
[2023-08-11] VITALS (8 sets, daily range): BP systolic 124–139; BP diastolic 60–69; PULSE 67–92; RESP 18–32; TEMP 36.4–37.1; O2SAT 92–98
[2023-08-11 00:26] LABS: Vancomycin Trough 11.7 ug/mL (10-15)
[2023-08-11] MEDS: vancomycin 1,500 MG/300 ML PIGGYBACK 200 MG IV ×2 (00:41→12:23)
[2023-08-11] MEDS: meropenem 1,000 MG in sodium chloride 0.9% (plus) 50 ML 100 MG IV ×2 (02:15→12:22)
[2023-08-11 05:24] LABS: Blood Urea Nitrogen 22 mg/dL (8-23); Calcium 7.7 mg/dL (8.5-10.5); Carbon Dioxide 24 mmol/L (22-29); Chloride 105 mmol/L (98-107); Glucose 113 mg/dL (65-115); Osmolality Calculated 290 mOsm/kg (285-295); Sodium 138 mmol/L (136-145)
[2023-08-11 05:25] LABS: Anion Gap 13.4 (5-19); Potassium 4.4 mmol/L (3.5-5.1)
[2023-08-11] MEDS: aspirin 81 mg EC Tablet PO (08:46)
[2023-08-11] MEDS: metoprolol tartrate 25 mg Tablet PO (08:46)
[2023-08-11] MEDS: ipratropium-albuterol 3 mL Neb INHALATION ×2 (08:49→15:22)
--- NOTE | 2023-08-11 09:46 | P.DS_ITS ---
Discharge Providers Date of Admission: 08/05/23 01:12 Date of Discharge: August 11, 2023 Attending Provider at Admission: Estelita Olmos MD Attending Provider at Discharge: Andrés Lange DO Primary Care Provider: Dominic Adams DO Diagnoses at Discharge Discharge Diagnosis (1) Fever: Status: Acute Permanent problem details: Persistent (2) Acute and chronic respiratory failure: Status: Acute (3) Sepsis: Status: Acute Qualifiers: Acute renal failure type: unspecified Sepsis acute organ dysfunction status: with acute organ dysfunction Sepsis type: sepsis due to unspecified organism Severe sepsis acute organ dysfunction type: acute renal failure Severe sepsis shock status: with septic shock Qualified Code(s): A41.9 - Sepsis, unspecified organism; R65.21 - Severe sepsis with septic shock; N17.9 - Acute kidney failure, unspecified (4) UTI (urinary tract infection): Status: Acute (5) GERD (gastroesophageal reflux disease): Status: Acute (6) SVT (supraventricular tachycardia): Status: Acute (7) Diastolic heart failure of unknown etiology: Status: Chronic (8) Urinary retention: Status: Acute (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 (10) DNR (do not resuscitate) discussion: Status: Acute Reason for Visit Reason for Visit: FEVER Brief History: Ben Ochoa is a 77 year old male?COPD, dementia, insomnia, BPH, GERD, depression and insomnia, chronic indwelling catheter was [facility] in from the [facility] for fever of 103 ?F.? And confusion.? He has a history of recurrent UTI secondary to chronic indwelling catheter.? There is no history of cold cough shortness of breath abdominal pain nausea vomiting diarrhea. Unable to obtain further history due to dementia and incoherent speech Hospital Course Hospital Course Patient was started on Zosyn. On 08/08/2023 CTA was negative for PE but showed bilateral lower lobe pneumonia, left greater than right. Vancomycin was added at that time. I updated on clinical status and Ben decision of DNR/DNI. I also repeated blood culture at that time ?08/09/2023.? Patient still with temperature spikes.? Did a phone consult with Dr. Roldan from infectious disease.? Changed from Zosyn to meropenem.? Check for C. difficile toxin.? Check renal ultrasound for renal vein thrombosis.? Respiratory viral panel.? This is unable to be done at this time due to no reagents.? Change Madrigal catheter as Madrigal was placed prior to antibiotics being started. 08/10/2023.? No overnight fever.? Patient is more awake able to eat.? Vital signs are improved. visited and patient was anxious to return to [facility]. Arrangements were made for home IV antibiotics and case management notified [facility] that he would likely return via stretcher the following day. 08/11/2023: No fever since 08/08/2023 at 2100. He has been afebrile for 2 full days now. Also note that 2 days prior his heart rate and blood pressure were elevated. He is had elevated blood pressure for most of the hospital stay. He was started on a beta-iván with excellent success Physical Exam Narrative: Elderly male appears less acutely ill. Remains pale with dry skin. Heart regular normal S1-S2 without murmurs clicks gallops or rubs Lungs coughing with water, anterior rhonchi remain. Bilateral lower lobes with rhonchi as well Abdomen distended mild diffuse tenderness. Normal bowel sounds Extremities no clubbing cyanosis or edema Urinary Catheter Management: Madrigal: Cath Placed During This Visit: yes Reason for Continuing Indwelling Catheter: Acute Urinary Retention or Obstruction Urinary Catheter Date of Insertion: 08/05/23 Urinary Catheter Time of Insertion: 02:06 Discharge Data Studies Completed and Pending Completed Studies During Hospitalization Category Date Time Status CT abdomen pelvis wo con [id number] Stat Cat Scan 08/05/23 09:07 Completed CTA chest [CT angio chest PE protcl [id number]] Stat Cat Scan 08/08/23 16:13 Completed XR chest 1V [id number] Stat Exams 08/04/23 21:02 Completed XR chest 1V portable [id number] Stat Exams 08/06/23 21:13 Completed US renal BI* [id number] Routine Ultrasound 08/09/23 09:35 Completed Pending at discharge Category Date Time Status Basic Metabolic Panel AM LABS Lab 08/12/23 04:00 Ordered Blood Culture Stat Lab 08/08/23 16:21 Results Clostridium Difficile PCR Routine Lab 08/09/23 09:35 Received Radiology Impressions Abdomen/Pelvis CT 08/05/23 09:07 IMPRESSION: 1. Bilateral lower lung consolidation suspicious for infection or aspiration. 2. Moderate asymmetric right perirenal edema. Nonspecific finding. This may be related to recent prior obstruction. No sign of ongoing obstruction. Renal vein thrombosis could also produce this finding. This finding is infrequently associated with pyelonephritis. No renal or perirenal abscess is visible. 3. Incidental findings above. Chest X-Ray 08/06/23 21:13 IMPRESSION: 1. Interval placement of right-sided PICC line that appears in satisfactory position. 2. Worsening left lower lobe infiltrate presumed secondary to pneumonia. Chest CTA 08/08/23 16:13 IMPRESSION: 1. Bilateral pneumonia. 2. Bilateral small pleural effusions 3. Limited examination due to patient respiratory motion but no gross evidence of pulmonary embolism. Laboratory Results WBC 5.77 10^3/uL (3.29-11.43) 08/09/23 09:34 RBC 4.96 10^6/uL (3.85-5.65) 08/09/23 09:34 Hgb 13.30 g/dL (11.27-16.99) 08/09/23 09:34 Hct 41.5 % (37-53) 08/09/23 09:34 MCV 83.7 fl (82-101) 08/09/23 09:34 MCH 26.8 pg (27-33) L 08/09/23 09:34 MCHC 32.0 g/dL (30-55) 08/09/23 09:34 RDW 14.8 % (12.1-15.1) 08/09/23 09:34 Plt Count 137 10^3/cmm (157-399) L 08/09/23 09:34 MPV 11.5 fL (7.4-10.4) H 08/09/23 09:34 Neut % (Auto) 86.6 % 08/09/23 09:34 Lymph % (Auto) 6.6 % 08/09/23 09:34 Phillips % (Auto) 4.7 % 08/09/23 09:34 Eos % (Auto) 0.2 % 08/09/23 09:34 Baso % (Auto) 0.3 % 08/09/23 09:34 Neut # (Auto) 5.00 10^3/uL (1.8-7.7) 08/09/23 09:34 Lymph # (Auto) 0.4 10^3/uL (0.8-4.8) L 08/09/23 09:34 Phillips # (Auto) 0.3 10^3/uL (0.2-0.9) 08/09/23 09:34 Eos # (Auto) 0.0 10^3/uL (0.0-0.8) 08/09/23 09:34 Baso # (Auto) 0.0 10^3/uL (0.0-0.1) 08/09/23 09:34 Nucleated RBC % (auto) 0 % 08/09/23 09:34 Total Counted 100 (0-100) 08/05/23 04:57 Atypical Lymphs % 0.0 % (0-5) 08/05/23 04:57 Absolute Neutrophils 17.6 10^3/cmm (1.4-6.5) H 08/05/23 04:57 Segmented Neutrophils 65 % 08/05/23 04:57 Abs Segm Neuts (Man) 13.8 10/cmm (1.6-7.1) H 08/05/23 04:57 Band Neutrophils 18.0 % 08/05/23 04:57 Abs Band Neuts (Man) 3.8 10^3/cmm (0.0-1.2) H 08/05/23 04:57 Absolute Lymphocytes 1.1 10^3/cmm (1.2-3.4) L 08/05/23 04:57 Lymphocytes (Manual) 5 % 08/05/23 04:57 Monocytes (Manual) 5.0 % 08/05/23 04:57 Absolute Monocytes 1.1 10^3/cmm (0.1-0.6) H 08/05/23 04:57 Eosinophils (Manual) 0 % 08/05/23 04:57 Absolute Eosinophils 0.0 10^3/cmm (0.0-0.7) 08/05/23 04:57 Basophils (Manual) 0.0 % 08/05/23 04:57 Absolute Basophils 0.0 10^3/cmm (0.0-0.2) 08/05/23 04:57 Metamyelocytes 7.0 % 08/05/23 04:57 Nucleated RBCs # 0.0 /100WBC 08/09/23 09:34 Platelet Estimate Normal (Normal) 08/05/23 04:57 ESR 25 mm/hr (0-10) H 08/04/23 21:29 Sodium 138 mmol/L (136-145) 08/11/23 04:20 Potassium 4.4 mmol/L (3.5-5.1) 08/11/23 04:20 Chloride 105 mmol/L (98-107) 08/11/23 04:20 Carbon Dioxide 24 mmol/L (22-29) 08/11/23 04:20 Anion Gap 13.4 (5-19) 08/11/23 04:20 BUN 22 mg/dL (8-23) 08/11/23 04:20 Creatinine 0.7 mg/dL (0.7-1.2) 08/11/23 04:20 GFR Calculation Not Reportable 08/11/23 04:20 Glucose 113 mg/dL (65-115) 08/11/23 04:20 Estimat Average Glucose 108 08/06/23 03:36 Hemoglobin A1c 5.4 % (4.0-6.0) 08/06/23 03:36 Calculated Osmolality 290 mOsm/kg (285-295) 08/11/23 04:20 Lactic Acid 5.2 mmol/L (0.5-2.2) H* 08/05/23 04:57 Lactic Acid (Sepsis) 3.7 mmol/L (0.5-2.2) H 08/05/23 07:44 Calcium 7.7 mg/dL (8.5-10.5) L 08/11/23 04:20 Phosphorus 2.8 mg/dL (2.5-4.5) 08/08/23 04:35 Magnesium 2.1 mg/dL (1.7-2.3) 08/08/23 04:35 Iron 7 ug/dL (59-158) L 08/05/23 04:57 TIBC 188 mcg/dl 08/05/23 04:57 % Saturation 3.7 % (20-50) L 08/05/23 04:57 Unsat Iron Binding 181 ug/dL (112-347) 08/05/23 04:57 Total Bilirubin 0.5 mg/dL (0.15-1.2) 08/06/23 03:36 AST 23 U/L (0-40) 08/06/23 03:36 ALT 14 U/L (0-41) 08/06/23 03:36 Alkaline Phosphatase 78 U/L (40-130) 08/06/23 03:36 C-Reactive Protein 107.3 mg/L (0.0-4.9) H 08/04/23 21:29 Total Protein 6.0 g/dL (6.6-8.7) L 08/06/23 03:36 Albumin 2.9 g/dL (3.5-5.2) L 08/06/23 03:36 Globulin 3.1 g/dL (1.3-4.6) 08/06/23 03:36 Triglycerides 176 mg/dL (0-150) H 08/06/23 03:36 Cholesterol 113 mg/dL (0-200) 08/06/23 03:36 LDL Cholesterol, Calc 54 mg/dL (50-129) 08/06/23 03:36 Total VLDL Cholesterol 35 mg/dL (0-30) H 08/06/23 03:36 HDL Cholesterol 24 mg/dL (60-100) L 08/06/23 03:36 Cholesterol/HDL Ratio 4.71 mg/dL (1.0-5.00) 08/06/23 03:36 Vitamin B12 381 pg/mL (232-1245) 08/05/23 04:57 Folate 2.8 ng/mL (4.5-32.2) L 08/06/23 03:36 Procalcitonin 70.60 ng/mL (0-0.5) H 08/05/23 04:57 TSH 1.99 uIU/mL (0.27-4.20) 08/05/23 04:57 Urine Color Yellow (Yellow) 08/04/23 22:46 Urine Appearance Cloudy (CLEAR) A 08/04/23 22:46 Urine pH 8 (5-7) H 08/04/23 22:46 Ur Specific Cecil 1.010 (1.005-1.030) 08/04/23 22:46 Urine Protein 1+ (Negative) H 08/04/23 22:46 Urine Glucose (UA) Norm (Normal) 08/04/23 22:46 Urine Ketones Negative (Negative) 08/04/23 22:46 Urine Blood 3+ (Negative) H 08/04/23 22:46 Urine Nitrate Negative (Negative) 08/04/23 22:46 Urine Bilirubin Neg (Negative) 08/04/23 22:46 Prot Sulfosalicylic Acd Positive (Negative) 08/04/23 22:46 Urine Urobilinogen Neg mg/dL (Negative) 08/04/23 22:46 Ur Leukocyte Esterase 2+ (Negative) H 08/04/23 22:46 Urine RBC >100 /hpf (0-2) H 08/04/23 22:46 Urine WBC >100 /hpf (0-5) H 08/04/23 22:46 Ur Squamous Epith Cells 0-4 /hpf (0-5) H 08/04/23 22:46 Amorphous Sediment Not Reportable 08/04/23 22:46 Urine Bacteria 1+ /hpf (NONE) H 08/04/23 22:46 Nasal Influ A H1 2009 PCR Not detected (NOT DETECT) 08/10/23 19:38 Vancomycin Trough 11.7 ug/mL (10-15) 08/10/23 23:25 Adenovirus (PCR) Detected (NOT DETECT) A 08/10/23 19:38 C. pneumoniae DNA (PCR) Not detected (NOT DETECT) 08/10/23 19:38 Coronavirus 229E (PCR) Not detected (NOT DETECT) 08/10/23 19:38 Human Metapneumovir PCR Not detected (NOT DETECT) 08/10/23 19:38 Influenza A (H1) PCR Not detected (NOT DETECT) 08/10/23 19:38 Influenza A (H3) PCR Not detected (NOT DETECT) 08/10/23 19:38 Influenza Type A (PCR) Not detected (NOT DETECT) 08/10/23 19:38 Influenza Type B (PCR) Not detected (NOT DETECT) 08/10/23 19:38 M. pneumoniae (PCR) Not detected (NOT DETECT) 08/10/23 19:38 Parainfluenza 1 (PCR) Not detected (NOT DETECT) 08/10/23 19:38 Parainfluenza 2 (PCR) Not detected (NOT DETECT) 08/10/23 19:38 Parainfluenza 3 (PCR) Not detected (NOT DETECT) 08/10/23 19:38 Parainfluenza 4 (PCR) Not detected (NOT DETECT) 08/10/23 19:38 RSV Type A (PCR) Not detected (NOT DETECT) 08/10/23 19:38 RSV Type B (PCR) Not detected (NOT DETECT) 08/10/23 19:38 Entero/Rhino (PCR) Not detected (NOT DETECT) 08/10/23 19:38 SARS-CoV-2 (PCR) Not detected (NOT DETECT) 08/10/23 19:38 SARS-CoV-2 Ag (Rapid) negative (Negative) 08/04/23 22:47 Vitals Last Vital Signs Temp 98.5 F 08/11/23 07:35 Pulse 92 08/11/23 08:00 Resp 18 08/11/23 08:00 BP 139/69 08/11/23 07:35 Pulse Ox 92 08/11/23 08:00 O2 Del Method Nasal Cannula 08/11/23 08:00 O2 Flow Rate 5 08/11/23 08:00 Discharge Plan Discharge Patient Disposition: Xfer SNF Condition: Stable Prescriptions: New ipratropium-albuterol 0.5 mg-3 mg(2.5 mg base)/3 mL Solution For Nebulization 3 ml inhalation QID.RESPIRATORY Qty: 30 0RF polyethylene glycol 3350 17 gram/dose Powder 4 g PO DAILY PRN (Reason: Constipation) Qty: 30 0RF metoprolol tartrate 25 mg Tablet 25 mg PO BID@0900,2100 Qty: 60 0RF Continued acetaminophen 325 mg capsule 650 mg PO Q4H PRN (Reason: PAIN/FEVER) bisacodyl 10 mg suppository 10 mg WA DAILY PRN (Reason: Constipation) calcium carbonate [Tums] 200 mg calcium (500 mg) Tablet,Chewable 1,000 mg PO QID PRN (Reason: Indigestion) aspirin 81 mg Tablet,Delayed Release (Dr/Ec) 81 mg PO DAILY@08 Refresh Tears 1 ophthalmic insert eye-both BID pantoprazole 20 mg tablet,delayed release (DR/EC) 20 mg PO DAILY Discontinued finasteride 5 mg tablet 5 mg PO DAILY@20 tamsulosin [Flomax] 0.4 mg capsule 0.4 mg PO QPM Discharge Orders: Discharge Order (Routine); Ordered 08/11/23 Ordered By: Andrés Lange Referrals: Dominic Adams DO [Primary Care Provider] - Discharge Diet: As Directed Discharge Activity: Increase activity as tolerated Activity Restrictions/Additional Instructions: Besides water, liquid should be thickened. Also adjustments must be made on his dentures. Or he should remain edentulous with a soft diet. Home IV antibiotics were ordered yesterday. Meropenem 1000 mg every 8 hours for 2 weeks Vancomycin 1500 mg IV every 18 hours for 2 weeks Check vancomycin trough every 3 doses. Note his SL UMS was 8 out of 30. He does have severe dementia. Discharge Attestations Time Spent in Discharge Care*: greater than 30 min Status at Discharge: Cognitive status at discharge: cognitively intact , Behavioral status at discharge: cooperative , Quality Metrics Clinical Quality Measures [ No reported AMI, CVA or VTE this stay] Coding Level of Care Code Acute Code for Chg Fwd Diagnoses Fever R50.9 Acute and chronic respiratory failure J96.20 Sepsis A41.9; R65.21; N17.9 Acute renal failure type: unspecified Sepsis acute organ dysfunction status: with acute organ dysfunction Sepsis type: sepsis due to unspecified organism Severe sepsis acute organ dysfunction type: acute renal failure Severe sepsis shock status: with septic shock UTI (urinary tract infection) N39.0 GERD (gastroesophageal reflux disease) K21.9 SVT (supraventricular tachycardia) I47.1 Diastolic heart failure of unknown etiology I50.30 Urinary retention R33.9 Dementia of frontal lobe type G31.09; F02.80 DNR (do not resuscitate) discussion Z71.89
--- NOTE | 2023-08-11 12:13 | PC.NURSE ---
Called report to [facility] and gave to Valeria ([facility] nurse) who stated the [facility] nurse was not available to get report at that time. Informed that we will be sending pt back to them following his IV antibiotics. Valeria stated that it jose antonio be fine.
--- NOTE | 2023-08-11 16:15 | PC.NURSE ---
Discharge Note Patient discharged to [SNF] via [stretcher] accompanied by [EMS transport personnel]. Discharge instructions reviewed with patient and/or inbound call center representative. Mobile pharmacy medications and/or prescriptions provided. Belongings/home medications returned.
== END 2023-08-11 15:45 | disposition skilled nursing facility (03) | DRG 871 ==
LOC: ER 08-05 00:30 → CSU 08-05 03:10
PROVIDERS: Student in an Organized Health Care Education/Training Program; Admitting Provider Internal Medicine; Emergency Provider Physician Assistant; PCP Internal Medicine; Visit Provider Internal Medicine
DX: A41.59 Other Gram-negative sepsis (principal); J18.9 Pneumonia, unspecified organism; J96.20 Acute and chronic respiratory failure, unspecified whether with hypoxia or hypercapnia; R65.21 Severe sepsis with septic shock; N39.0 Urinary tract infection, site not specified; I47.10 Supraventricular tachycardia, unspecified; I50.30 Unspecified diastolic (congestive) heart failure; N17.9 Acute kidney failure, unspecified; G30.9 Alzheimer's disease, unspecified; F02.80 Dementia in other diseases classified elsewhere, unspecified severity, without behavioral disturbance, psychotic disturbance, mood disturbance, and anxiety; N40.0 Benign prostatic hyperplasia without lower urinary tract symptoms; K21.9 Gastro-esophageal reflux disease without esophagitis; I67.2 Cerebral atherosclerosis; F01.50 Vascular dementia, unspecified severity, without behavioral disturbance, psychotic disturbance, mood disturbance, and anxiety; Z66 Do not resuscitate; J44.9 Chronic obstructive pulmonary disease, unspecified; Z87.440 Personal history of urinary (tract) infections; Z86.16 Personal history of COVID-19
CPT/HCPCS: 36415; 36573; 36592; 51702; 71045; 71275; 74176; 76770; 80048; 80053; 80061; 80202; 81001; 82607; 82746; 83036; 83540; 83550; 83605; 83735; 84100; 84145; 84443; 85007; 85025; 85651; 86140; 86403; 87040; 87077; 87086; 87150; 87186; 87205; 87426; 87486; 87493; 87581; 87633; 92523; 92610; 93005; 94640; 94664; 96365; 96372; 96375; 96376; 97161; 97167; 97530; 99285; J0131; J0744; J1650; J2185; J2543; J3370; J3490; J7030; J7040

== ENCOUNTER 2023-08-17 11:00 | Emergency (ER) | payer MEDICAID, SELFPAY ==
[2023-08-17] VITALS (8 sets, daily range): BP systolic 127–149; BP diastolic 65–82; PULSE 76–85; RESP 18–24; TEMP 36.4; O2SAT 90–95
--- NOTE | 2023-08-17 11:02 | ECG_ITS ---
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 Measurements Intervals Valdez Rate: 80 P: 19 DC: 166 QRS: 42 QRSD: 96 T: 50 QT: 374 QTc: 433 Interpretive Statements SINUS RHYTHM Compared to ECG 08/04/2023 21:36:02 Sinus tachycardia no longer present T-wave abnormality no longer present Electronically Signed On 08-17-2023 12:29:19 CDT by Paulino Rodriguez M.D. [id number]
--- NOTE | 2023-08-17 11:03 | XRR_ITS ---
PROCEDURE INFORMATION: Exam: XR Chest Exam date and time: 08/17/2023 11:13 AM Age: 77 years old Clinical indication: Cough and dyspnea; Additional info: Dyspnea/cough TECHNIQUE: Imaging protocol: Radiologic exam of the chest. Views: 1 view. COMPARISON: CR (CHEST, ) 08/06/2023 9:29 PM FINDINGS: Tubes, catheters and devices: There is a peripherally inserted central catheter on the right with the tip positioned in the mid SVC. Lungs: There is mild bilateral apical subpleural scarring. Ill-defined opacity in the lung bases bilaterally and in the right mid lung. Right lung base opacity is increased since 08/06/2023. Pleural spaces: The left lateral costophrenic sulcus is blunted. Heart/Mediastinum: Cardiomediastinal contours are unremarkable. Bones/joints: Bones are unremarkable. XR/XR chest 1V portable [id number] IMPRESSION: 1. Bilateral lower lung and right midlung opacities consistent with extensive consolidation visible on chest CT 08/08/2023. Right lower lung opacity is progressive since the chest radiograph on 08/06/2023. 2. Small left pleural effusion.
--- NOTE | 2023-08-17 11:10 | W.ED.GENADLT ---
HPI - General Adult General: Chief complaint: General Medical Stated complaint: uti, pneumonia Time Seen by Provider: 08/17/23 11:01 Source: patient Mode of arrival: ambulatory History of Present Illness: 77-year-old male who presents to the emergency room with complaints of respiratory distress per nursing staff. Patient was recently hospitalized for acute kidney injury and pneumonia. EMS reports that he was not having any respiratory distress and they arrived he is normally on a baseline of 2 L/min by nasal cannula he is on that now and satting normally. He has no specific complaints this time denies chest or abdominal pain. He does have a Madrigal in place and a PICC line in the right upper arm Associated symptoms: Deny chest pain, confusion, cough, diaphoresis, decreased appetite, dyspnea, fevers/chills, headache(s), malaise, nausea, rash, palpitations, seizures, short of breath, syncope, vomiting or weakness Review of Systems Const: Denies: fever(s), chills, malaise or diaphoresis Card: Denies: chest pain, palpitations or syncope Resp: Denies: dyspnea GI: Denies: abdominal pain, nausea or vomiting : Denies: dysuria, urinary frequency or urinary urgency Musc: Denies: neck pain or back pain Skin/Breast: Denies: rash Neuro: Denies: headache(s) or confusion PFSH ED PFSH: Medical History AMS (altered mental status) BPH (benign prostatic hyperplasia) COPD (chronic obstructive pulmonary disease) Cystitis Delirium due to general medical condition Dementia of frontal lobe type Diastolic heart failure of unknown etiology DJD (degenerative joint disease) Fever Persistent GERD (gastroesophageal reflux disease) History of 2019 novel coronavirus disease (COVID-19) Hypoxia Major depressive disorder, single episode, in full remission Proteus infection SVT (supraventricular tachycardia) Urinary retention Ventricular premature beats Surgical History History of thoracentesis Chronic right pleural effusion which needed [place] drain which was removed by Dr. Hoover 2015 PEG (percutaneous endoscopic gastrostomy) status Family History Father Cancer Grandfather Myocardial infarction Other CAD (coronary artery disease) Social History Smoking and tobacco/nicotine status: never used tobacco/nicotine Alcohol intake: never Substance/Drug Use: never Lives independently: No Marital status: Physical Exam Const: GENERAL APPEARANCE: cooperative and comfortable ORIENTATION/CONSCIOUSNESS: Yes awake HENMT: COMMON NORMALS: normocephalic, atraumatic and hearing grossly normal bilaterally HEAD & SCALP: normocephalic and atraumatic Resp: COMMON NORMALS: normal respiratory effort, No retractions, No use of accessory muscles and clear to auscultation bilaterally AUSCULTATION: clear to auscultation bilaterally Cardio: COMMON NORMALS: regular rate, regular rhythm and No murmurs present (Cardio) RATE: regular rate RHYTHM: regular rhythm GI: COMMON NORMALS: Soft to palpation and No hepatosplenomegaly present AUSCULTATION: Yes normoactive bowel sounds PALPATION: Yes Soft to palpation, No Tenderness to palpation present (GI), No Guarding due to palpation present (GI) and Yes No hepatosplenomegaly present Extremity: COMMON NORMALS: normal to inspection, capillary refill normal, no clubbing, cyanosis or edema, no calf tenderness and no pedal edema Skin: COMMON NORMALS: no rashes or lesions noted GENERAL SKIN EXAM: no rashes or lesions noted Course Vital Signs: Vital signs: Vital Signs Temperature 97.6 F 08/17/23 11:15 Pulse Rate 80 08/17/23 14:30 Respiratory Rate 20 H 08/17/23 14:30 Blood Pressure 135/72 08/17/23 14:30 Pulse Oximetry 92 08/17/23 14:30 Oxygen Delivery Me thod Nasal Cannula 08/17/23 14:30 Oxygen Flow Rate 2 08/17/23 14:30 MDM - General Adult Medical Decision Making Patient essentially at baseline's oxygenation is normal labs reviewed mild elevation of white count patient is still on IV antibiotics via PICC line continue those reviewing labs nothing that appears to require acute readmission. Medical Records I reviewed the patient's medical records. Lab Data I reviewed the patient's lab results. 08/17/23 11:25 08/17/23 12:01 Radiology Impressions Chest X-Ray 08/17/23 11:03 IMPRESSION: 1. Bilateral lower lung and right midlung opacities consistent with extensive consolidation visible on chest CT 08/08/2023. Right lower lung opacity is progressive since the chest radiograph on 08/06/2023. 2. Small left pleural effusion. Laboratory Results WBC 12.35 10^3/uL (3.29-11.43) H 08/17/23 11:25 RBC 4.91 10^6/uL (3.85-5.65) 08/17/23 11:25 Hgb 13.10 g/dL (11.27-16.99) 08/17/23 11:25 Hct 41.9 % (37-53) 08/17/23 11:25 MCV 85.3 fl (82-101) 08/17/23 11:25 MCH 26.7 pg (27-33) L 08/17/23 11:25 MCHC 31.3 g/dL (30-55) 08/17/23 11:25 RDW 14.2 % (12.1-15.1) 08/17/23 11:25 Plt Count 304 10^3/cmm (157-399) 08/17/23 11:25 MPV 11.7 fL (7.4-10.4) H 08/17/23 11:25 Neut % (Auto) 80.6 % 08/17/23 11:25 Lymph % (Auto) 11.9 % 08/17/23 11:25 [place] % (Auto) 5.2 % 08/17/23 11:25 Eos % (Auto) 0.6 % 08/17/23 11:25 Baso % (Auto) 0.4 % 08/17/23 11:25 Neut # (Auto) 9.96 10^3/uL (1.8-7.7) H 08/17/23 11:25 Lymph # (Auto) 1.5 10^3/uL (0.8-4.8) 08/17/23 11:25 [place] # (Auto) 0.6 10^3/uL (0.2-0.9) 08/17/23 11:25 Eos # (Auto) 0.1 10^3/uL (0.0-0.8) 08/17/23 11:25 Baso # (Auto) 0.1 10^3/uL (0.0-0.1) 08/17/23 11:25 Nucleated RBC % (auto) 0 % 08/17/23 11:25 Nucleated RBCs # 0.0 /100WBC 08/17/23 11:25 Sodium 136 mmol/L (136-145) 08/17/23 12:01 Potassium 4.4 mmol/L (3.5-5.1) 08/17/23 12:01 Chloride 103 mmol/L (98-107) 08/17/23 12:01 Carbon Dioxide 23 mmol/L (22-29) 08/17/23 12:01 Anion Gap 14.4 (5-19) 08/17/23 12:01 BUN 22 mg/dL (8-23) 08/17/23 12:01 Creatinine 0.8 mg/dL (0.7-1.2) 08/17/23 12:01 GFR Calculation Not Reportable 08/17/23 12:01 Glucose 124 mg/dL (65-115) H 08/17/23 12:01 Calculated Osmolality 287 mOsm/kg (285-295) 08/17/23 12:01 Lactic Acid 1.2 mmol/L (0.5-2.2) 08/17/23 11:25 Calcium 9.1 mg/dL (8.5-10.5) 08/17/23 12:01 Total Bilirubin 0.6 mg/dL (0.15-1.2) 08/17/23 12:01 AST 21 U/L (0-40) 08/17/23 12:01 ALT 23 U/L (0-41) 08/17/23 12:01 Alkaline Phosphatase 246 U/L (40-130) H 08/17/23 12:01 Total Protein 7.3 g/dL (6.6-8.7) 08/17/23 12:01 Albumin 3.1 g/dL (3.5-5.2) L 08/17/23 12:01 Globulin 4.2 g/dL (1.3-4.6) 08/17/23 12:01 Urine Color Yellow (Yellow) 08/17/23 11:37 Urine Appearance Clear (CLEAR) 08/17/23 11:37 Urine pH 5 (5-7) 08/17/23 11:37 Ur Specific [place] 1.015 (1.005-1.030) 08/17/23 11:37 Urine Protein Neg (Negative) 08/17/23 11:37 Urine Glucose (UA) Norm (Normal) 08/17/23 11:37 Urine Ketones 1+ (Negative) H 08/17/23 11:37 Urine Blood 2+ (Negative) H 08/17/23 11:37 Urine Nitrate Negative (Negative) 08/17/23 11:37 Urine Bilirubin Neg (Negative) 08/17/23 11:37 Urine Urobilinogen Norm mg/dL (Negative) 08/17/23 11:37 Ur Leukocyte Esterase Negative (Negative) 08/17/23 11:37 Urine RBC 5-10 /hpf (0-2) H 08/17/23 11:37 Urine WBC 0-4 /hpf (0-5) H 08/17/23 11:37 Ur Squamous Epith Cells 0-4 /hpf (0-5) H 08/17/23 11:37 Amorphous Sediment Not Reportable 08/17/23 11:37 Urine Bacteria Trace /hpf (NONE) 08/17/23 11:37 Urine Mucus 1+ /hpf 08/17/23 11:37 Urine Yeast 1+ /hpf H 08/17/23 11:37 All radiology interpretation(s) finalized by discharge Discharge Plan Discharge Patient Disposition: Home Clinical Impression: Dementia, Diastolic CHF, Chronic respiratory failure Condition: Stable Prescriptions: No Action acetaminophen 325 mg capsule 650 mg PO Q4H PRN (Reason: PAIN/FEVER) bisacodyl 10 mg suppository 10 mg [place] DAILY PRN (Reason: Constipation) calcium carbonate [Tums] 200 mg calcium (500 mg) Tablet,Chewable 1,000 mg PO QID PRN (Reason: Indigestion) aspirin 81 mg Tablet,Delayed Release (Dr/Ec) 81 mg PO DAILY@08 Refresh Tears 1 ophthalmic insert eye-both BID PRN (Reason: dry eyes) pantoprazole 20 mg tablet,delayed release (DR/EC) 20 mg PO DAILY ipratropium-albuterol 0.5 mg-3 mg(2.5 mg base)/3 mL Solution For Nebulization 3 ml inhalation QID.RESPIRATORY Qty: 30 0RF polyethylene glycol 3350 17 gram/dose Powder 4 g PO DAILY PRN (Reason: Constipation) Qty: 30 0RF metoprolol tartrate 25 mg Tablet 25 mg PO BID@0900,2100 Qty: 60 0RF Discharge Orders: Discharge ED (Routine); Ordered 08/17/23 Ordered By: Jesus Guzman Referrals: Dominic Adams, [Primary Care Provider] - Discharge Diet: Usual diet Discharge Activity: Resume usual activity Patient Instructions: Opioid Safety, Pain Management Activity Restrictions/Additional Instructions: Thank you for choosing [facility] for your healthcare needs today. Please realize this is an emergency room and that we are providing you with a medical screening exam and this may not be complete and all inclusive of all the testing and or work up that you may need to determine your ailment or severity of your illness. It is very important that you follow up as instructed or that you return to the Emergency Department should you have concerns or if your condition changes or worsens in any way. Continue same medications no changes Coding Level of Care Code ED Tdp Displays Analyst for Rachelle Buckner
[2023-08-17 11:37] LABS: Basophils # 0.1 10^3/uL (0.0-0.1); Basophils % 0.4 %; Eosinophils # 0.1 10^3/uL (0.0-0.8); Eosinophils % 0.6 %; Hematocrit 41.9 % (37-53); Lymphocytes # 1.5 10^3/uL (0.8-4.8); Lymphocytes % 11.9 %; Mean Corpuscular HGB Conc 31.3 g/dL (30-55); Mean Corpuscular Hemoglobin 26.7 pg (27-33); Mean Corpuscular Volume 85.3 fl (82-101); Mean Platelet Volume 11.7 fL (7.4-10.4); Monocytes # 0.6 10^3/uL (0.2-0.9); Monocytes % 5.2 %; Neutrophils # 9.96 10^3/uL (1.8-7.7); Neutrophils % 80.6 %; Nucleated Red Blood Cells % 0 %; Platelet Count 304 10^3/cmm (157-399); Red Blood Count 4.91 10^6/uL (3.85-5.65); Red Cell Distribution Width 14.2 % (12.1-15.1); White Blood Count 12.35 10^3/uL (3.29-11.43)
--- NOTE | 2023-08-17 11:43 | PC.PHAR ---
PT IS FROM [facility]. FAXING MED LIST SOON POSSIBLE. 08/17/23 11:44AM
--- NOTE | 2023-08-17 11:44 | PC.NURSE ---
Patient back at baseline on 2L NC. Cardiac monitoring in place
[2023-08-17 11:58] LABS: Lactic Sepsis W/Reflex 1.2 mmol/L (0.5-2.2)
[2023-08-17 12:04] LABS: Add Urine Culture? Yes; Add Urine Microscopic? YES; Bacteria Urine TRACE /hpf; Bilirubin Urine Neg (Negative); Blood Urine 2+ (Negative); Glucose Urine UA Norm (Normal); Ketones Urine 1+ (Negative); Leukocyte Esterase Urine Negative (Negative); Mucus Urine 1+ /hpf; Nitrate Urine Negative (Negative); Protein Urine Neg (Negative); Specific Gravity, Urine 1.015 (1.005-1.030); Squamous Epithelial Cell Urine 0-4 /hpf (0-5); Urine Appearance Clear (CLEAR); Urine Color Yellow (Yellow); Urobilinogen Urine Norm (Negative); WBC Urine 0-4 /hpf (0-5); pH Urine 5 (5-7)
[2023-08-17 12:29] LABS: Alanine Aminotransferase 23 U/L (0-41); Albumin Level 3.1 g/dL (3.5-5.2); Alkaline Phosphatase 246 U/L (40-130); Anion Gap 14.4 (5-19); Aspartate Amino Transferase 21 U/L (0-40); Blood Urea Nitrogen 22 mg/dL (8-23); Calcium 9.1 mg/dL (8.5-10.5); Carbon Dioxide 23 mmol/L (22-29); Chloride 103 mmol/L (98-107); Globulin 4.2 g/dL (1.3-4.6); Glucose 124 mg/dL (65-115); Osmolality Calculated 287 mOsm/kg (285-295); Potassium 4.4 mmol/L (3.5-5.1); Sodium 136 mmol/L (136-145); Total Bilirubin 0.6 mg/dL (0.15-1.2); Total Protein 7.3 g/dL (6.6-8.7)
== END 2023-08-17 18:08 | disposition home or self-care (01) ==
PROVIDERS: Emergency Provider Family Medicine; PCP Internal Medicine
DX: J96.10 Chronic respiratory failure, unspecified whether with hypoxia or hypercapnia (principal); F03.90 Unspecified dementia, unspecified severity, without behavioral disturbance, psychotic disturbance, mood disturbance, and anxiety; I50.30 Unspecified diastolic (congestive) heart failure; Z79.82 Long term (current) use of aspirin; J44.9 Chronic obstructive pulmonary disease, unspecified
CPT/HCPCS: 36415; 71045; 80053; 81001; 83605; 85025; 87040; 87086; 93005; 99285

== ENCOUNTER 2023-08-20 04:28 | Emergency (ER) | payer MEDICAID, SELFPAY ==
[2023-08-20 04:30] VITALS: BP 155/81; PULSE 91; RESP 18; TEMP 36.7; O2SAT 92; BMI 24.5
[2023-08-20 04:35] VITALS: BP 155/81; PULSE 95; O2SAT 92
--- NOTE | 2023-08-20 04:35 | XRR_ITS ---
PROCEDURE INFORMATION: Exam: XR Chest Exam date and time: 08/20/2023 4:36 AM Age: 77 years old Clinical indication: Shortness of breath; Patient HX: SOB. Recent hospitalization for pneumonia. TECHNIQUE: Imaging protocol: Radiologic exam of the chest. Views: 1 view. COMPARISON: CR XR chest 1V portable [id number] 08/17/2023 11:13 AM FINDINGS: Tubes, catheters and devices: Right upper extremity PICC terminates over the SVC. Lungs: Persistent hazy opacities, most notable in the left lower lung and in the right middle lung field, stable to slightly improved compared to 08/17/2023. Pleural spaces: Blunting of the left costophrenic angle. Heart/Mediastinum: Cardiomediastinal silhouette is stable. Bones/joints: Osseous structures are unchanged. XR/XR chest 1V portable [id number] IMPRESSION: 1. Persistent hazy opacities, most notable in the left lower lung and in the right middle lung field, stable to slightly improved compared to 08/17/2023. 2. Likely small left pleural effusion, unchanged.
--- NOTE | 2023-08-20 04:39 | ECG_ITS ---
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 Measurements Intervals [place] Rate: 92 P: 33 IA: 179 QRS: 28 QRSD: 92 T: 39 QT: 383 QTc: 474 Interpretive Statements SINUS RHYTHM Compared to ECG 08/17/2023 11:08:30 No significant changes Electronically Signed On 08-20-2023 9:54:13 FACILITIES PAINTER by Paulino Rodriguez M.D. [id number]
--- NOTE | 2023-08-20 05:05 | ED_ITS ---
HPI - SOB/Dyspnea General: Chief Complaint: Shortness of Breath/Dyspnea Stated Complaint: SOB Time Seen by Provider: 08/20/23 04:31 History of Present Illness: HPI Narrative: 77-year-old male gentleman who was hospitalized recently for pneumonia and urinary tract infection. He comes from the [facility] this morning with increased shortness of breath. He had increased oxygen demand in the [facility]dc evidently. No fever, no chills. No sputum production. Evidently, he has been getting IV antibiotics through PICC line in the [facility]dc. Associated symptoms: Deny abdominal pain, chest pain, fever(s), palpitations or vomiting Review of Systems Const: Denies: fever(s) or chills ENMT: Denies: throat pain Card: Denies: chest pain or palpitations Resp: Reports: dyspnea and productive cough GI: Denies: abdominal pain or vomiting : Denies: flank pain PFSH ED PFSH: Medical History AMS (altered mental status) BPH (benign prostatic hyperplasia) COPD (chronic obstructive pulmonary disease) Cystitis Delirium due to general medical condition Dementia of frontal lobe type Diastolic heart failure of unknown etiology DJD (degenerative joint disease) Fever Persistent GERD (gastroesophageal reflux disease) History of 2019 novel coronavirus disease (COVID-19) Hypoxia Major depressive disorder, single episode, in full remission Proteus infection SVT (supraventricular tachycardia) Urinary retention Ventricular premature beats Surgical History History of thoracentesis Chronic right pleural effusion which needed [place] drain which was removed by Dr. Hoover 2015 PEG (percutaneous endoscopic gastrostomy) status Family History Father Cancer Grandfather Myocardial infarction Other CAD (coronary artery disease) Social History Smoking and tobacco/nicotine status: never used tobacco/nicotine Alcohol intake: never Substance/Drug Use: never Lives independently: No Marital status: Physical Exam Const: COMMON NORMALS: no acute distress GENERAL APPEARANCE: cooperative and frail appearing; patient not mechanically ventilated HENMT: COMMON NORMALS: normocephalic, atraumatic and Normal external nose present HEAD & SCALP: normocephalic and atraumatic FACE & SINUS: normal facial exam NOSE: Normal external nose present Eye: COMMON NORMALS: Equal, round and reactive pupils present and EOMs intact bilaterally PUPIL: Yes Equal, round and reactive pupils present Neck/C-Spine: GENERAL: Yes trachea midline Chest: CHEST: Yes Symmetrical chest wall rise Resp: COMMON NORMALS: clear to auscultation bilaterally AUSCULTATION: clear to auscultation bilaterally and diminished lung sounds Cardio: COMMON NORMALS: regular rate and regular rhythm RATE: regular rate RHYTHM: regular rhythm GI: COMMON NORMALS: Normal to inspection, nondistended, normoactive bowel sounds present Extremity: GENERAL: Yes edema Neuro: CHAI COMA SCALE: document GCS findings Chai coma scale eye opening: Spontaneous [place] coma scale verbal response: [place] coma scale motor response: Obey commands [place] coma scale total score: 15 Skin: COMMON NORMALS: no rashes or lesions noted GENERAL SKIN EXAM: no rashes or lesions noted Course Vital Signs: Vital signs: Vital Signs Temperature 98.1 F 08/20/23 04:30 Pulse Rate 91 08/20/23 04:30 Respiratory Rate 18 08/20/23 04:30 Blood Pressure 155/81 08/20/23 04:30 Pulse Oximetry 92 08/20/23 04:30 Oxygen Delivery Me thod Nasal Cannula 08/20/23 04:30 Oxygen Flow Rate 3 08/20/23 04:30 MDM - SOB/Dyspnea Medical Decision Making 77-year-old male with shortness of breath. He presents with increased shortness of breath this morning. Symptoms are essentially resolved after DuoNeb treatment in route to the hospital. He had been treated for bilateral pneumonia. Infiltrates appear improved on chest x-ray. His CBC shows white blood cell count of 5, hemoglobin of 12. Other laboratory is hemolyzed. There is no evidence of fluid overload on chest x-ray. With resolution of his symptoms, he will be allowed back to the [facility] to continue antibiotic treatment. Lab Data 08/20/23 05:16 08/20/23 06:21 Labs/Radiology: Laboratory Results WBC 5.08 10^3/uL (3.29-11.43) 08/20/23 05:16 RBC 4.55 10^6/uL (3.85-5.65) 08/20/23 05:16 Hgb 11.90 g/dL (11.27-16.99) 08/20/23 05:16 Hct 38.9 % (37-53) 08/20/23 05:16 MCV 85.5 fl (82-101) 08/20/23 05:16 MCH 26.2 pg (27-33) L 08/20/23 05:16 MCHC 30.6 g/dL (30-55) 08/20/23 05:16 RDW 13.9 % (12.1-15.1) 08/20/23 05:16 Plt Count 244 10^3/cmm (157-399) 08/20/23 05:16 MPV 12.1 fL (7.4-10.4) H 08/20/23 05:16 Neut % (Auto) 65.5 % 08/20/23 05:16 Lymph % (Auto) 20.7 % 08/20/23 05:16 [place] % (Auto) 9.6 % 08/20/23 05:16 Eos % (Auto) 2.2 % 08/20/23 05:16 Baso % (Auto) 1.4 % 08/20/23 05:16 Neut # (Auto) 3.33 10^3/uL (1.8-7.7) 08/20/23 05:16 Lymph # (Auto) 1.1 10^3/uL (0.8-4.8) 08/20/23 05:16 [place] # (Auto) 0.5 10^3/uL (0.2-0.9) 08/20/23 05:16 Eos # (Auto) 0.1 10^3/uL (0.0-0.8) 08/20/23 05:16 Baso # (Auto) 0.1 10^3/uL (0.0-0.1) 08/20/23 05:16 Nucleated RBC % (auto) 0 % 08/20/23 05:16 Nucleated RBCs # 0.0 /100WBC 08/20/23 05:16 Sodium Cancelled 08/20/23 05:16 Potassium Cancelled 08/20/23 05:16 Chloride Cancelled 08/20/23 05:16 Carbon Dioxide Cancelled 08/20/23 05:16 Anion Gap Cancelled 08/20/23 05:16 BUN Cancelled 08/20/23 05:16 Creatinine Cancelled 08/20/23 05:16 GFR Calculation Cancelled 08/20/23 05:16 Glucose Cancelled 08/20/23 05:16 Calculated Osmolality Cancelled 08/20/23 05:16 Lactic Acid 0.9 mmol/L (0.5-2.2) 08/20/23 05:16 Calcium Cancelled 08/20/23 05:16 Total Bilirubin Cancelled 08/20/23 05:16 AST Cancelled 08/20/23 05:16 ALT Cancelled 08/20/23 05:16 Alkaline Phosphatase Cancelled 08/20/23 05:16 NT-Pro-B Natriuret Pep Cancelled 08/20/23 05:16 Total Protein Cancelled 08/20/23 05:16 Albumin Cancelled 08/20/23 05:16 Globulin Cancelled 08/20/23 05:16 SARS-CoV-2 Ag (Rapid) negative (Negative) 08/20/23 05:04 XR interpretation done by ED provider, pending radiology final review Discharge Plan Discharge Patient Disposition: Home Clinical Impression: Left lower lobe pulmonary infiltrate Condition: Stable Prescriptions: New Medrol (Ernie) 4 mg tablets,dose pack See Rx Instructions .ROUTE .COMPLEX Qty: 21 0RF Rx Instructions: orally per package directions No Action acetaminophen 325 mg capsule 650 mg PO Q4H PRN (Reason: PAIN/FEVER) bisacodyl 10 mg suppository 10 mg [place] DAILY PRN (Reason: Constipation) calcium carbonate [Tums] 200 mg calcium (500 mg) Tablet,Chewable 1,000 mg PO QID PRN (Reason: Indigestion) aspirin 81 mg Tablet,Delayed Release (Dr/Ec) 81 mg PO DAILY@08 Refresh Tears 1 ophthalmic insert eye-both BID PRN (Reason: dry eyes) pantoprazole 20 mg tablet,delayed release (DR/EC) 20 mg PO DAILY ipratropium-albuterol 0.5 mg-3 mg(2.5 mg base)/3 mL Solution For Nebulization 3 ml inhalation QID.RESPIRATORY Qty: 30 0RF polyethylene glycol 3350 17 gram/dose Powder 4 g PO DAILY PRN (Reason: Constipation) Qty: 30 0RF metoprolol tartrate 25 mg Tablet 25 mg PO BID@0900,2100 Qty: 60 0RF Discharge Orders: Discharge ED (Routine); Ordered 08/20/23 Ordered By: Hal Luke Referrals: Dominic Adams DO [Primary Care Provider] - Patient Instructions: COPD (Chronic Obstructive Pulmonary Disease) (ED), Pneumonia (ED), Opioid Safety, Pain Management Activity Restrictions/Additional Instructions: Continue breathing treatments, DuoNeb, every 6 hours while awake for the next 48 hours, then as needed to follow that. Continue IV antibiotics as previously ordered. Other medications as directed. Return for worsening symptoms despite treatment. Coding Level of Care Code ED Physician Practice Market Manager for Rachelle Buckner
[2023-08-20 05:27] LABS: Basophils # 0.1 10^3/uL (0.0-0.1); Basophils % 1.4 %; Eosinophils # 0.1 10^3/uL (0.0-0.8); Eosinophils % 2.2 %; Hematocrit 38.9 % (37-53); Lymphocytes # 1.1 10^3/uL (0.8-4.8); Lymphocytes % 20.7 %; Mean Corpuscular HGB Conc 30.6 g/dL (30-55); Mean Corpuscular Hemoglobin 26.2 pg (27-33); Mean Corpuscular Volume 85.5 fl (82-101); Mean Platelet Volume 12.1 fL (7.4-10.4); Monocytes # 0.5 10^3/uL (0.2-0.9); Monocytes % 9.6 %; Neutrophils # 3.33 10^3/uL (1.8-7.7); Neutrophils % 65.5 %; Nucleated Red Blood Cells % 0 %; Platelet Count 244 10^3/cmm (157-399); Red Blood Count 4.55 10^6/uL (3.85-5.65); Red Cell Distribution Width 13.9 % (12.1-15.1); White Blood Count 5.08 10^3/uL (3.29-11.43)
[2023-08-20 05:30] VITALS: PULSE 87; O2SAT 93
[2023-08-20 05:38] LABS: SARS Covid-2 Antigen negative (Negative)
[2023-08-20 05:44] LABS: Lactic Sepsis W/Reflex 0.9 mmol/L (0.5-2.2)
[2023-08-20 06:30] VITALS: PULSE 82; O2SAT 95
[2023-08-20 07:04] LABS: Alanine Aminotransferase 19 U/L (0-41); Albumin Level 2.9 g/dL (3.5-5.2); Alkaline Phosphatase 180 U/L (40-130); Anion Gap 13.3 (5-19); Aspartate Amino Transferase 21 U/L (0-40); Blood Urea Nitrogen 23 mg/dL (8-23); Calcium 8.8 mg/dL (8.5-10.5); Carbon Dioxide 24 mmol/L (22-29); Chloride 105 mmol/L (98-107); Globulin 4.1 g/dL (1.3-4.6); Glucose 101 mg/dL (65-115); NT Pro B Type Natriuretic Pept 223 pg/mL (0-450); Osmolality Calculated 290 mOsm/kg (285-295); Potassium 4.3 mmol/L (3.5-5.1); Sodium 138 mmol/L (136-145); Total Bilirubin 0.3 mg/dL (0.15-1.2)
== END 2023-08-20 10:05 | disposition home or self-care (01) ==
PROVIDERS: Emergency Provider Emergency Medicine; PCP Internal Medicine
DX: R91.8 Other nonspecific abnormal finding of lung field (principal); Z79.82 Long term (current) use of aspirin; Z11.52 Encounter for screening for COVID-19; J44.9 Chronic obstructive pulmonary disease, unspecified; F03.90 Unspecified dementia, unspecified severity, without behavioral disturbance, psychotic disturbance, mood disturbance, and anxiety; I50.9 Heart failure, unspecified
CPT/HCPCS: 36415; 71045; 80053; 83605; 83880; 85025; 87426; 93005; 99285

== ENCOUNTER 2023-12-06 10:47 | Outpatient (CLI) | payer MEDICAID, SELFPAY ==
--- NOTE | 2023-12-06 11:08 | FL_ITS ---
WS: [id number] EXAMINATION: FL barium swallow modifd [id number] ORDER DATE: 12/06/2023 11:40 AM REASON FOR EXAM: Other dysphagia COMPARISON: None available. FLUOROSCOPY TIME: 3min [id number] # OF SPOT FILMS: 20 images/video runs were obtained FINDINGS: The patient has poor oral motor control There is free spillover with some sparing pooling in the vallecula. There was penetration and aspiration with thin and nectar consistencies. There is no penetration or a spiration with honey consistency. IMPRESSION: Penetration and aspiration was identified as above. The swallowing mechanism is discordant.
== END 2023-12-06 10:48 | disposition home or self-care (01) ==
LOC: RAD 10:48
PROVIDERS: PCP Internal Medicine; Visit Provider Internal Medicine
DX: R13.10 Dysphagia, unspecified (principal)
CPT/HCPCS: 74230; 92611

== ENCOUNTER 2023-12-16 03:16 | Emergency (ER) | payer MEDICAID, SELFPAY ==
[2023-12-16 03:19] VITALS: BP 146/81; PULSE 61; RESP 20; TEMP 36.6; O2SAT 97; BMI 25.7
--- NOTE | 2023-12-16 03:44 | ED_ITS ---
HPI - Male Genitourinary General: Stated complaint: CATH PROBLEM Time Seen by Provider: 12/16/23 03:19 History of Present Illness: 78-year-old male who fell out of bed at the senior living, pulling his chronic indwelling Madrigal catheter out. He had bleeding from the urethra. Replacement was attempted twice at the senior living, without success. He complains of urethral pain and some continued bleeding. Associated symptoms: Reports hematuria; Deny vomiting Review of Systems Const: Denies: fever(s) GI: Denies: abdominal pain or vomiting : Reports: hematuria PFSH ED PFSH: Medical History Fever Persistent Hypoxia Delirium due to general medical condition Cystitis SVT (supraventricular tachycardia) AMS (altered mental status) Diastolic heart failure of unknown etiology GERD (gastroesophageal reflux disease) DJD (degenerative joint disease) Urinary retention Proteus infection BPH (benign prostatic hyperplasia) History of 2019 novel coronavirus disease (COVID-19) Ventricular premature beats Major depressive disorder, single episode, in full remission COPD (chronic obstructive pulmonary disease) Dementia of frontal lobe type Surgical History PEG (percutaneous endoscopic gastrostomy) status History of thoracentesis Chronic right pleural effusion which needed [place] drain which was removed by Dr. Hoover 2015 Family History Father Cancer Grandfather Myocardial infarction Other CAD (coronary artery disease) Social History Smoking and tobacco/nicotine status: never used tobacco/nicotine Alcohol intake: never Substance/Drug Use: never Lives independently: No Marital status: Physical Exam Const: COMMON NORMALS: no acute distress GENERAL APPEARANCE: frail appearing; not ill appearing HENMT: COMMON NORMALS: normocephalic, atraumatic and Normal external nose present HEAD & SCALP: normocephalic and atraumatic NOSE: Normal external nose present Neck/C-Spine: GENERAL: Yes trachea midline Chest: CHEST: Yes Symmetrical chest wall rise Resp: COMMON NORMALS: normal respiratory effort, No use of accessory muscles and clear to auscultation bilaterally AUSCULTATION: clear to auscultation bilaterally Cardio: COMMON NORMALS: regular rate and regular rhythm RATE: regular rate RHYTHM: regular rhythm GI: COMMON NORMALS: Normal to inspection, nondistended, normoactive bowel sounds present : MEATUS: Blood at meatus present and other (Urethral erosion from chronic indwelling catheter) Neuro: CHAI COMA SCALE: document GCS findings Chai coma scale eye opening: Spontaneous Chai coma scale verbal response: Confused Chai coma scale motor response: Obey commands [place] coma scale total score: 14 Psych: ATTITUDE: Yes calm MDM - Male Medical Decision Making Catheter replaced without difficulty. Bloody urine output, which seems to be clearing quickly. Will allow discharge back to the senior living. No radiology studies performed this visit Discharge Plan Discharge Patient Disposition: Home Clinical Impression: Dislodged Madrigal catheter Condition: Stable Prescriptions: No Action acetaminophen 325 mg capsule 650 mg PO Q4H PRN (Reason: PAIN/FEVER) bisacodyl 10 mg suppository 10 mg [place] DAILY PRN (Reason: Constipation) calcium carbonate [Tums] 200 mg calcium (500 mg) Tablet,Chewable 1,000 mg PO QID PRN (Reason: Indigestion) aspirin 81 mg Tablet,Delayed Release (Dr/Ec) 81 mg PO DAILY@08 Refresh Tears 1 ophthalmic insert eye-both BID PRN (Reason: dry eyes) pantoprazole 20 mg tablet,delayed release (DR/EC) 20 mg PO DAILY ipratropium-albuterol 0.5 mg-3 mg(2.5 mg base)/3 mL Solution For Nebulization 3 ml inhalation QID.RESPIRATORY Qty: 30 0RF polyethylene glycol 3350 17 gram/dose Powder 4 g PO DAILY PRN (Reason: Constipation) Qty: 30 0RF metoprolol tartrate 25 mg Tablet 25 mg PO BID@0900,2100 Qty: 60 0RF Medrol (Ernie) 4 mg tablets,dose pack See Rx Instructions .ROUTE .COMPLEX Qty: 21 0RF Rx Instructions: orally per package directions Discharge Orders: Discharge ED (Routine); Ordered 12/16/23 Ordered By: Hal Luke Referrals: Dominic Adams DO [Primary Care Provider] - 4-7 days Patient Instructions: Madrigal Catheter Placement and Care (ED), Opioid Safety, Pain Management Activity Restrictions/Additional Instructions: Blood should clear over 24 hours. Return for problems. If blood clots and blocks urine output, irrigation with saline or sterile water may help. Coding Level of Care Code ED Packaging Inspector for Rachelle Buckner
[2023-12-16] MEDS: lidocaine 2% Urojet 20 mL TOPICAL (03:52)
--- NOTE | 2023-12-16 05:16 | PC.NURSE ---
Report called to alf. Pt. draining bloody urine due to trauma abrasion from pulling catheter out.
== END 2023-12-16 05:58 | disposition home or self-care (01) ==
PROVIDERS: Emergency Provider Emergency Medicine; PCP Internal Medicine
DX: T83.028A Displacement of other urinary catheter, initial encounter (principal); Y73.1 Therapeutic (nonsurgical) and rehabilitative gastroenterology and urology devices associated with adverse incidents; Z79.82 Long term (current) use of aspirin; I50.30 Unspecified diastolic (congestive) heart failure; J44.9 Chronic obstructive pulmonary disease, unspecified; F03.90 Unspecified dementia, unspecified severity, without behavioral disturbance, psychotic disturbance, mood disturbance, and anxiety
CPT/HCPCS: 51702; 99283

== ENCOUNTER 2024-01-19 23:48 | Emergency (ER) | payer MEDICAID, SELFPAY ==
[2024-01-19 23:49] VITALS: BP 126/75; PULSE 105; RESP 16; TEMP 37.7; O2SAT 94; BMI 18.6
[2024-01-20 00:04] VITALS: BP 126/75; PULSE 104; RESP 18; O2SAT 93
[2024-01-20 00:28] LABS: Basophils # 0.1 10^3/uL (0.0-0.1); Basophils % 0.3 %; Eosinophils % 0.2 %; Hematocrit 43.2 % (37-53); Lymphocytes # 1.7 10^3/uL (0.8-4.8); Lymphocytes % 9.9 %; Mean Corpuscular HGB Conc 31.7 g/dL (30-55); Mean Corpuscular Hemoglobin 26.1 pg (27-33); Mean Corpuscular Volume 82.4 fl (82-101); Monocytes # 1.2 10^3/uL (0.2-0.9); Monocytes % 6.8 %; Neutrophils # 13.87 10^3/uL (1.8-7.7); Neutrophils % 82.6 %; Nucleated Red Blood Cells % 0 %; Platelet Count 247 10^3/cmm (157-399); Red Blood Count 5.24 10^6/uL (3.85-5.65); Red Cell Distribution Width 13.3 % (12.1-15.1); White Blood Count 16.81 10^3/uL (3.29-11.43)
[2024-01-20 00:52] LABS: Add Urine Microscopic? YES; Bilirubin Urine 1+ (Negative); Blood Urine 3+ (Negative); Glucose Urine UA Norm (Normal); Ketones Urine 1+ (Negative); Leukocyte Esterase Urine 2+ (Negative); Nitrate Urine Positive (Negative); Protein Urine Neg (Negative); Specific Gravity, Urine 1.005 (1.005-1.030); Urine Appearance Cloudy (CLEAR); Urine Color Yellow (Yellow); Urobilinogen Urine 1 mg/dL (Negative); pH Urine 7 (5-7)
[2024-01-20 00:53] LABS: Add Urine Culture? Yes; Amorphous Sediment Urine 2+ /hpf; Bacteria Urine 3+ /hpf; Coarse Granular Casts Urine 0-4 /lpf; Mucus Urine 1+ /hpf; RBC Urine 0-4 /hpf (0-2); Squamous Epithelial Cell Urine 0-4 /hpf (0-5); WBC Urine 55-80 /hpf (0-5)
[2024-01-20 00:55] LABS: Alanine Aminotransferase 13 U/L (0-41); Albumin Level 3.9 g/dL (3.5-5.2); Alkaline Phosphatase 129 U/L (40-130); Aspartate Amino Transferase 14 U/L (0-40); Blood Urea Nitrogen 24 mg/dL (8-23); C Reactive Protein 226.8 mg/L (0.0-4.9); Calcium 9.9 mg/dL (8.5-10.5); Carbon Dioxide 26 mmol/L (22-29); Chloride 100 mmol/L (98-107); Creatinine Clr Calc Pharmacy 51.4874; Globulin 4.9 g/dL (1.3-4.6); Glucose 112 mg/dL (65-115); Osmolality Calculated 293 mOsm/kg (285-295); Sodium 139 mmol/L (136-145); Total Bilirubin 0.9 mg/dL (0.15-1.2); Total Protein 8.8 g/dL (6.6-8.7)
--- NOTE | 2024-01-20 01:06 | XRR_ITS ---
PROCEDURE INFORMATION: Exam: XR Chest Exam date and time: 01/20/2024 1:09 AM Age: 78 years old Clinical indication: Cough and shortness of breath; Patient HX: Cough with SOB TECHNIQUE: Imaging protocol: Radiologic exam of the chest. Views: 1 view. COMPARISON: CR XR chest 1V portable [id number] 08/20/2023 4:36 AM FINDINGS: Lungs: Patchy interstitial and airspace opacities, similar in distribution and extent compared to prior study, likely chronic. Stable left basilar ai opacity, could represent recurrent consolidation or stable chronic opacity. Pleural spaces: No pleural effusion or pneumothorax. Stable biapical pleural thickening. Heart/Mediastinum: Unremarkable. No cardiomegaly. Bones/joints: No acute osseous abnormalities are seen. XR/XR chest 1V portable [id number] IMPRESSION: Stable left basilar opacity, could represent recurrent consolidation or stable chronic opacity.
[2024-01-20] MEDS: piperacillin-tazobactam 4.5 GM in sodium chloride 0.9% (plus) 50 ML IV (01:31)
--- NOTE | 2024-01-20 01:39 | W.ED.MALEGU ---
HPI - Male Genitourinary General: Chief complaint: Urogenital-Male Stated complaint: AMS Time Seen by Provider: 01/20/24 00:08 History of Present Illness: 78-year-old male care home patient. He presents via EMS from the care home. intermediate called report stating that the patient had been hallucinating. He had also had blood and clots in his catheter. He has chronic indwelling Madrigal. He apparently has had a temperature. The patient himself endorses an increased cough with some shortness of breath and sputum production as well. He is ANO x 4 on evaluation. Associated symptoms: Deny nausea or vomiting Review of Systems Const: Reports: fever(s) Card: Denies: chest pain or palpitations Resp: Reports: dyspnea and productive cough GI: Denies: abdominal pain, nausea or vomiting PFSH ED PFSH: Medical History Fever Persistent Hypoxia Delirium due to general medical condition Cystitis SVT (supraventricular tachycardia) AMS (altered mental status) Diastolic heart failure of unknown etiology GERD (gastroesophageal reflux disease) DJD (degenerative joint disease) Urinary retention Proteus infection BPH (benign prostatic hyperplasia) History of 2019 novel coronavirus disease (COVID-19) Ventricular premature beats Major depressive disorder, single episode, in full remission COPD (chronic obstructive pulmonary disease) Dementia of frontal lobe type Surgical History PEG (percutaneous endoscopic gastrostomy) status History of thoracentesis Chronic right pleural effusion which needed Donaldo drain which was removed by Dr. Hoover 2015 Family History Father Cancer Grandfather Myocardial infarction Other CAD (coronary artery disease) Social History Smoking and tobacco/nicotine status: never used tobacco/nicotine Alcohol intake: never Substance/Drug Use: never Lives independently: No Marital status: Physical Exam Const: COMMON NORMALS: no acute distress GENERAL APPEARANCE: cooperative and frail appearing HENMT: COMMON NORMALS: normocephalic, atraumatic and Normal external nose present HEAD & SCALP: normocephalic and atraumatic FACE & SINUS: normal facial exam and face symmetric NOSE: Normal external nose present Eye: COMMON NORMALS: Equal, round and reactive pupils present and EOMs intact bilaterally PUPIL: Yes Equal, round and reactive pupils present Neck/C-Spine: GENERAL: Yes trachea midline Chest: CHEST: Yes Symmetrical chest wall rise Resp: COMMON NORMALS: normal respiratory effort, No use of accessory muscles and clear to auscultation bilaterally AUSCULTATION: clear to auscultation bilaterally Cardio: COMMON NORMALS: regular rate and regular rhythm RATE: regular rate RHYTHM: regular rhythm GI: COMMON NORMALS: Normal to inspection, nondistended, normoactive bowel sounds present Extremity: COMMON NORMALS: no pedal edema Neuro: CHAI COMA SCALE: document GCS findings Chai coma scale eye opening: Spontaneous Chai coma scale verbal response: Orientated Chai coma scale motor response: Obey commands Chai coma scale total score: 15 Course Vital Signs: Vital signs: Vital Signs Temperature 99.8 F H 01/19/24 23:49 Pulse Rate 96 01/20/24 02:09 Respiratory Rate 18 01/20/24 02:09 Blood Pressure 132/71 01/20/24 02:09 Pulse Oximetry 96 01/20/24 02:09 Oxygen Delivery Me thod Nasal Cannula 01/20/24 00:04 Oxygen Flow Rate 5 01/20/24 00:04 MDM - Male Medical Decision Making White blood cell count is 17. BMP is normal. Chest x-ray shows a left basilar opacity present on prior films. There is a nitrite positive leukocyte Estrace positive urinalysis, which is treated as well. He was given IV Zosyn for both here. He will be allowed discharge on Levaquin, as his vitals and oxygenation are stable at baseline. He will return for any problems. Lab Data 01/20/24 00:00 01/20/24 00:00 Radiology Impressions Chest X-Ray 01/20/24 01:06 IMPRESSION: Stable left basilar opacity, could represent recurrent consolidation or stable chronic opacity. Laboratory Results WBC 16.81 10^3/uL (3.29-11.43) H 01/20/24 00:00 RBC 5.24 10^6/uL (3.85-5.65) 01/20/24 00:00 Hgb 13.70 g/dL (11.27-16.99) 01/20/24 00:00 Hct 43.2 % (37-53) 01/20/24 00:00 MCV 82.4 fl (82-101) 01/20/24 00:00 MCH 26.1 pg (27-33) L 01/20/24 00:00 MCHC 31.7 g/dL (30-55) 01/20/24 00:00 RDW 13.3 % (12.1-15.1) 01/20/24 00:00 Plt Count 247 10^3/cmm (157-399) 01/20/24 00:00 MPV 11.0 fL (7.4-10.4) H 01/20/24 00:00 Neut % (Auto) 82.6 % 01/20/24 00:00 Lymph % (Auto) 9.9 % 01/20/24 00:00 Dewitt % (Auto) 6.8 % 01/20/24 00:00 Eos % (Auto) 0.2 % 01/20/24 00:00 Baso % (Auto) 0.3 % 01/20/24 00:00 Neut # (Auto) 13.87 10^3/uL (1.8-7.7) H 01/20/24 00:00 Lymph # (Auto) 1.7 10^3/uL (0.8-4.8) 01/20/24 00:00 Dewitt # (Auto) 1.2 10^3/uL (0.2-0.9) H 01/20/24 00:00 Eos # (Auto) 0.0 10^3/uL (0.0-0.8) 01/20/24 00:00 Baso # (Auto) 0.1 10^3/uL (0.0-0.1) 01/20/24 00:00 Nucleated RBC % (auto) 0 % 01/20/24 00:00 Nucleated RBCs # 0.0 /100WBC 01/20/24 00:00 Sodium 139 mmol/L (136-145) 01/20/24 00:00 Potassium 4.0 mmol/L (3.5-5.1) 01/20/24 00:00 Chloride 100 mmol/L (98-107) 01/20/24 00:00 Carbon Dioxide 26 mmol/L (22-29) 01/20/24 00:00 Anion Gap 17.0 (5-19) 01/20/24 00:00 BUN 24 mg/dL (8-23) H 01/20/24 00:00 Creatinine 1.1 mg/dL (0.7-1.2) 01/20/24 00:00 GFR Calculation Not Reportable 01/20/24 00:00 Glucose 112 mg/dL (65-115) 01/20/24 00:00 Calculated Osmolality 293 mOsm/kg (285-295) 01/20/24 00:00 Calcium 9.9 mg/dL (8.5-10.5) 01/20/24 00:00 Total Bilirubin 0.9 mg/dL (0.15-1.2) 01/20/24 00:00 AST 14 U/L (0-40) 01/20/24 00:00 ALT 13 U/L (0-41) 01/20/24 00:00 Alkaline Phosphatase 129 U/L (40-130) 01/20/24 00:00 C-Reactive Protein 226.8 mg/L (0.0-4.9) H 01/20/24 00:00 Total Protein 8.8 g/dL (6.6-8.7) H 01/20/24 00:00 Albumin 3.9 g/dL (3.5-5.2) 01/20/24 00:00 Globulin 4.9 g/dL (1.3-4.6) H 01/20/24 00:00 Urine Color Yellow (Yellow) 01/20/24 00:02 Urine Appearance Cloudy (CLEAR) A 01/20/24 00:02 Urine pH 7 (5-7) 01/20/24 00:02 Ur Specific [place] 1.005 (1.005-1.030) 01/20/24 00:02 Urine Protein Neg (Negative) 01/20/24 00:02 Urine Glucose (UA) Norm (Normal) 01/20/24 00:02 Urine Ketones 1+ (Negative) H 01/20/24 00:02 Urine Blood 3+ (Negative) H 01/20/24 00:02 Urine Nitrate Positive (Negative) H 01/20/24 00:02 Urine Bilirubin 1+ (Negative) H 01/20/24 00:02 Urine Urobilinogen 1 mg/dL (Negative) H 01/20/24 00:02 Ur Leukocyte Esterase 2+ (Negative) H 01/20/24 00:02 Urine RBC 0-4 /hpf (0-2) H 01/20/24 00:02 Urine WBC 55-80 /hpf (0-5) H 01/20/24 00:02 Ur Squamous Epith Cells 0-4 /hpf (0-5) H 01/20/24 00:02 Amorphous Sediment 2+ /hpf 01/20/24 00:02 Urine Bacteria 3+ /hpf (NONE) H 01/20/24 00:02 Coarse Granular Casts 0-4 /lpf H 01/20/24 00:02 Urine Mucus 1+ /hpf 01/20/24 00:02 All radiology interpretation(s) finalized by discharge Discharge Plan Discharge Patient Disposition: Home Clinical Impression: Left lower lobe pulmonary infiltrate, UTI (urinary tract infection) Condition: Stable Prescriptions: New levofloxacin 750 mg tablet 750 mg PO DAILY 7 Days Qty: 7 0RF ipratropium-albuterol 0.5 mg-3 mg(2.5 mg base)/3 mL solution for nebulization 3 ml inhalation Q6H PRN (Reason: shortness of breath or wheezing) Qty: 90 0RF No Action acetaminophen 325 mg capsule 650 mg PO Q4H PRN (Reason: PAIN/FEVER) bisacodyl 10 mg suppository 10 mg WA DAILY PRN (Reason: Constipation) calcium carbonate [Tums] 200 mg calcium (500 mg) Tablet,Chewable 1,000 mg PO QID PRN (Reason: Indigestion) aspirin 81 mg Tablet,Delayed Release (Dr/Ec) 81 mg PO DAILY@08 Refresh Tears 1 ophthalmic insert eye-both BID PRN (Reason: dry eyes) pantoprazole 20 mg tablet,delayed release (DR/EC) 20 mg PO DAILY ipratropium-albuterol 0.5 mg-3 mg(2.5 mg base)/3 mL Solution For Nebulization 3 ml inhalation QID.RESPIRATORY Qty: 30 0RF polyethylene glycol 3350 17 gram/dose Powder 4 g PO DAILY PRN (Reason: Constipation) Qty: 30 0RF metoprolol tartrate 25 mg Tablet 25 mg PO BID@0900,2100 Qty: 60 0RF Medrol (Ernie) 4 mg tablets,dose pack See Rx Instructions .ROUTE .COMPLEX Qty: 21 0RF Rx Instructions: orally per package directions Discharge Orders: Discharge ED (Routine); Ordered 01/20/24 Ordered By: Hal Luke Referrals: Dominic Adams DO [Primary Care Provider] - 1-3 days Patient Instructions: Pneumonia (ED), Urinary Tract Infection in Older Adults (ED), Opioid Safety, Pain Management Activity Restrictions/Additional Instructions: Return for worsening shortness of breath despite treatment, fever despite 2-3 doses of antibiotics, worsening mental status despite treatment, any other concerning symptoms. See your doctor next week. Coding Level of Care Code ED Outpatient Physical Therapist for Rachelle Buckner
[2024-01-20 02:09] VITALS: BP 132/71; PULSE 96; RESP 18; O2SAT 96
== END 2024-01-20 08:21 | disposition home or self-care (01) ==
PROVIDERS: Emergency Provider Emergency Medicine; PCP Internal Medicine
DX: R91.8 Other nonspecific abnormal finding of lung field (principal); N39.0 Urinary tract infection, site not specified; Z79.82 Long term (current) use of aspirin; I50.30 Unspecified diastolic (congestive) heart failure; J44.9 Chronic obstructive pulmonary disease, unspecified; F03.90 Unspecified dementia, unspecified severity, without behavioral disturbance, psychotic disturbance, mood disturbance, and anxiety
CPT/HCPCS: 71045; 80053; 81001; 85025; 86140; 87077; 87086; 87186; 96365; 99284; J2543

== ENCOUNTER 2024-02-25 15:59 | Emergency (ER) | payer MEDICAID, SELFPAY ==
--- NOTE | 2024-02-25 16:04 | ED_ITS ---
HPI - General Adult General: Chief complaint: General Medical Stated complaint: cath issues Time Seen by Provider: 02/25/24 16:01 Source: patient and EMS Mode of arrival: EMS Limitations: no limitations History of Present Illness: 70-year-old male homeless here from [facility] after dislodged Madrigal EMS states that he had got caught up in his Madrigal and ripped it out over the weekend and then sent here today to have it replaced. He has no complaints here. Denies any pain Associated symptoms: Deny chest pain, dyspnea, headache(s), nausea, rash or vomiting Review of Systems Const: Denies: fever(s) or chills ENMT: Denies: throat pain or dental pain Card: Denies: chest pain Resp: Denies: dyspnea GI: Denies: abdominal pain, nausea, vomiting or diarrhea : Reports: difficulty urinating Musc: Denies: neck pain or back pain Skin/Breast: Denies: rash Neuro: Denies: headache(s) PFS ED PFSH: Medical History Fever Persistent Hypoxia Delirium due to general medical condition Cystitis SVT (supraventricular tachycardia) AMS (altered mental status) Diastolic heart failure of unknown etiology GERD (gastroesophageal reflux disease) DJD (degenerative joint disease) Urinary retention Proteus infection BPH (benign prostatic hyperplasia) History of 2019 novel coronavirus disease (COVID-19) Ventricular premature beats Major depressive disorder, single episode, in full remission COPD (chronic obstructive pulmonary disease) Dementia of frontal lobe type Surgical History PEG (percutaneous endoscopic gastrostomy) status History of thoracentesis Chronic right pleural effusion which needed Donaldo drain which was removed by Dr. Hoover 2015 Family History Father Cancer Grandfather Myocardial infarction Other CAD (coronary artery disease) Social History Smoking and tobacco/nicotine status: never used tobacco/nicotine Alcohol intake: never Substance/Drug Use: never Lives independently: No Marital status: Physical Exam Const: COMMON NORMALS: no acute distress, patient oriented x3 and healthy appearing HENMT: COMMON NORMALS: normocephalic and atraumatic HEAD & SCALP: normocephalic and atraumatic Neck/C-Spine: COMMON NORMALS: full ROM and supple Chest: COMMONS NORMALS: normal inspection of the chest Resp: COMMON NORMALS: normal respiratory effort Cardio: COMMON NORMALS: regular rate, regular rhythm and No murmurs present (Cardio) RATE: regular rate RHYTHM: regular rhythm GI: COMMON NORMALS: Normal to inspection, nondistended, normoactive bowel ivania nds present, Soft to palpation, non-tender and no masses PALPATION: Yes Soft to palpation Extremity: COMMON NORMALS: normal to inspection and full ROM Neuro: COMMON NORMALS: patient oriented x3, moves all extremities and no focal motor deficits Psych: COMMON NORMALS: mental status grossly normal, Normal thought process present and cooperative THOUGHT PROCESS: Normal thought process present Skin: COMMON NORMALS: no rashes or lesions noted and no wounds GENERAL SKIN EXAM: no rashes or lesions noted Course Vital Signs: Vital signs: Vital Signs Temperature 98.5 F 02/25/24 16:05 Pulse Rate 70 02/25/24 16:05 Respiratory Rate 17 02/25/24 16:05 Blood Pressure 182/92 02/25/24 16:05 Pulse Oximetry 98 02/25/24 16:05 Oxygen Delivery Me thod Room Air 02/25/24 16:05 [facility] - General Adult Medical Decision Making Patient presents here with a dislodged Madrigal catheter was able to replace the catheter here he is got good return no bleeding stable for discharge back to the half-way Medical Records I reviewed the patient's medical records. All radiology interpretation(s) finalized by discharge Discharge Plan Discharge Patient Disposition: Home Clinical Impression: Dislodged Madrigal catheter Condition: Stable Prescriptions: No Action acetaminophen 325 mg capsule 650 mg PO Q4H PRN (Reason: PAIN/FEVER) bisacodyl 10 mg suppository 10 mg AR DAILY PRN (Reason: Constipation) calcium carbonate [Tums] 200 mg calcium (500 mg) Tablet,Chewable 1,000 mg PO QID PRN (Reason: Indigestion) aspirin 81 mg Tablet,Delayed Release (Dr/Ec) 81 mg PO DAILY@08 Refresh Tears 1 ophthalmic insert eye-both BID PRN (Reason: dry eyes) pantoprazole 20 mg tablet,delayed release (DR/EC) 20 mg PO DAILY ipratropium-albuterol 0.5 mg-3 mg(2.5 mg base)/3 mL Solution For Nebulization 3 ml inhalation QID.RESPIRATORY Qty: 30 0RF polyethylene glycol 3350 17 gram/dose Powder 4 g PO DAILY PRN (Reason: Constipation) Qty: 30 0RF metoprolol tartrate 25 mg Tablet 25 mg PO BID@0900,2100 Qty: 60 0RF Medrol (Ernie) 4 mg tablets,dose pack See Rx Instructions .ROUTE .COMPLEX Qty: 21 0RF Rx Instructions: orally per package directions ipratropium-albuterol 0.5 mg-3 mg(2.5 mg base)/3 mL solution for nebulization 3 ml inhalation Q6H PRN (Reason: shortness of breath or wheezing) Qty: 90 0RF Discharge Orders: Discharge ED (Routine); Ordered 02/25/24 Ordered By: Cherise Gonzales Referrals: Dominic Adams DO [Primary Care Provider] - 4-7 days Discharge Diet: Advance as tolerated Discharge Activity: Resume usual activity Patient Instructions: Madrigal Catheter Placement and Care (ED) Coding Level of Care Code ED Family Services Coordinator for Rachelle Buckner
[2024-02-25 16:05] VITALS: BP 182/92; PULSE 70; RESP 17; TEMP 36.9; O2SAT 98; BMI 16.7
--- NOTE | 2024-02-25 21:04 | PC.NURSE ---
long term notice this nurse called [facility] at approx 2100 and spoke to the floor aid to inform them we were sending pt back. pt aid stated the nurse was out of the building. this nurse stated if the nurse needed report (since [facility] called) she needed to call back and speak with deni wilkerson.
[2024-02-25 21:10] VITALS: BP 189/86; PULSE 81; O2SAT 98
== END 2024-02-25 21:10 | disposition home or self-care (01) ==
PROVIDERS: Emergency Provider Emergency Medicine; PCP Internal Medicine
DX: T83.028A Displacement of other urinary catheter, initial encounter (principal); Z79.82 Long term (current) use of aspirin; I50.30 Unspecified diastolic (congestive) heart failure; J44.9 Chronic obstructive pulmonary disease, unspecified; F03.90 Unspecified dementia, unspecified severity, without behavioral disturbance, psychotic disturbance, mood disturbance, and anxiety
CPT/HCPCS: 51702; 99283

== ENCOUNTER 2024-08-13 07:28 | Inpatient (IN) | payer MEDICAID, SELFPAY ==
[2024-08-13] VITALS (10 sets, daily range): BP systolic 100–157; BP diastolic 52–85; PULSE 70–109; RESP 18–31; TEMP 36.7; O2SAT 92–98; BMI 20.2
--- NOTE | 2024-08-13 07:35 | XRR_ITS ---
PROCEDURE INFORMATION: Exam: XR Chest Exam date and time: 08/13/2024 7:56 AM Age: 78 years old Clinical indication: Pain; Angina pectoris; Additional info: Chest pain TECHNIQUE: Imaging protocol: Radiologic exam of the chest. Views: 1 view. COMPARISON: CR XR chest 1V portable [id number] 01/20/2024 1:09 AM FINDINGS: Lungs: Opacity can noted at the left lung base slightly worse on today's exam. Findings may reflect layering pleural fluid, atelectasis, pneumonia or a combination. Somewhat more subtle right basilar infiltrate is also noted. Findings appear to be superimposed upon hyperinflated lungs. Pleural spaces: There may be a component of pleural fluid at the left lung base. No pneumothorax is identified. Heart/Mediastinum: Heart size is normal. There is calcified plaque involving the aorta. Bones/joints: Unremarkable. XR/XR chest 1V portable [id number] IMPRESSION: 1. Bibasilar opacities worse on the left than on the right. Findings appear to be slightly worse on today's exam when compared to prior exam.
--- NOTE | 2024-08-13 07:35 | ECG_ITS ---
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 Measurements Intervals [place] Rate: 111 P: 57 TN: 163 QRS: 61 QRSD: 110 T: 59 QT: 339 QTc: 461 Interpretive Statements SINUS TACHYCARDIA WITH FREQUENT VENTRICULAR PREMATURE COMPLEXES POSSIBLE LATERAL MYOCARDIAL INFARCTION , OF INDETERMINATE AGE Compared to ECG 08/20/2023 04:39:48 Ventricular premature complex(es) now present Possible Myocardial infarct finding now present Electronically Signed On 08-13-2024 08:29:40 CDT by Sandeep Nicole M.D. [email or web address]
--- NOTE | 2024-08-13 07:41 | ED_ITS ---
HPI - Chest Pain 2 General: Chief Complaint: Chest Pain Stated Complaint: CHEST PAIN Time Seen by Provider: 08/13/24 07:34 History of Present Illness: 78-year-old male who presents to the [facility] from [facility]. His complaint of substernal chest pain rating to his neck and his arm. He is complaining of palpitations some nausea and shortness of breath. Patient was found in the bathroom too weak to get up. There was no fall. His sats are in the low 90s on room air and they did give him oxygen briefly on arrival here he was in the upper 90s but went off maintain sats in the 92 to 93% range. Patient has a history of congestive heart failure difficult to assess his orthopnea he has neck issues and does not [place] flat ever. 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 Patient denies any chest pain at this time. Associated symptoms: Reports dyspnea; Deny abdominal pain or fever(s) Related Data Home Medications Medication Instructions Recorded Confirmed acetaminophen 325 mg capsule 650 mg PO Q4H PRN PAIN/FEVER 11/27/19 08/13/24 bisacodyl 10 mg rectal suppository 10 mg [place] DAILY PRN Constipation 03/01/20 08/13/24 calcium carbonate (Tums) 1,000 mg PO QID PRN Indigestion 12/08/20 08/13/24 aspirin 81 mg tablet,delayed 81 mg PO DAILY@08 01/26/21 08/13/24 release Refresh Tears 1 ophthalmic insert eye-both BID 04/03/23 08/13/24 PRN dry eyes pantoprazole 20 mg tablet,delayed 20 mg PO DAILY 08/05/23 08/13/24 release Previous Rx's Medication Instructions Recorded metoprolol tartrate 25 mg tablet 25 mg PO BID@0900,2100 #60 tabs 08/11/23 polyethylene glycol 3350 17 4 g PO DAILY PRN Constipation #30 08/11/23 gram/dose oral powder grams ipratropium 0.5 mg-albuterol 3 mg 3 ml inhalation Q6H PRN shortness 01/20/24 (2.5 mg base)/3 mL nebulization of breath or wheezing #90 mL soln Allergies Allergy/AdvReac Type Severity Reaction Status Date / Time tetanus toxoid, adsorbed Allergy Unknown unknown Verified 08/20/23 04:36 Review of Systems 2 Const: Denies: fever(s) or chills Card: Reports: chest pain Resp: Reports: dyspnea and wheezing GI: Denies: abdominal pain : Reports: difficulty urinating, difficulty starting urination and other (Indwelling Madrigal BPH); Denies: change in urine stream Musc: Denies: neck pain or back pain Skin/Breast: Denies: rash PFSH ED 2 PFSH: Medical History (Updated 08/13/24 @ 10:31 by Jesus Guzman DO) COPD (chronic obstructive pulmonary disease) Fever Persistent Hypoxia Delirium due to general medical condition Cystitis SVT (supraventricular tachycardia) AMS (altered mental status) Diastolic heart failure of unknown etiology GERD (gastroesophageal reflux disease) DJD (degenerative joint disease) Urinary retention Proteus infection BPH (benign prostatic hyperplasia) History of 2019 novel coronavirus disease (COVID-19) Ventricular premature beats Major depressive disorder, single episode, 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 Hoover 2015 Family History Father Cancer Grandfather Myocardial infarction Other CAD (coronary artery disease) Social History Smoking and tobacco/nicotine status: never used tobacco/nicotine Alcohol intake: never Substance/Drug Use: never Lives independently: No Marital status: Physical Exam 2 Const: GENERAL APPEARANCE: cooperative and comfortable O RIENTATION/CONSCIOUSNESS: Yes awake HENMT: COMMON NORMALS: normocephalic, atraumatic and hearing grossly normal bilaterally HEAD & SCALP: normocephalic and atraumatic Resp: COMMON NORMALS: normal respiratory effort, No retractions, No use of accessory muscles and clear to auscultation bilaterally AUSCULTATION: clear to auscultation bilaterally Cardio: COMMON NORMALS: regular rate, regular rhythm and No murmurs present (Cardio) RATE: regular rate RHYTHM: regular rhythm GI: COMMON NORMALS: Soft to palpation and No hepatosplenomegaly present A USCULTATION: Yes normoactive bowel sounds PALPATION: Yes Soft to palpation, No Tenderness to palpation present (GI), No Guarding due to palpation present (GI) and Yes No hepatosplenomegaly present Extremity: COMMON NORMALS: normal to inspection, capillary refill normal, no clubbing, cyanosis or edema, no calf tenderness and no pedal edema Skin: COMMON NORMALS: no rashes or lesions noted GENERAL SKIN EXAM: no rashes or lesions noted Course 2 Vital Signs: Vital signs: Vital Signs Temperature 98.0 F 08/13/24 07:30 Pulse Rate 100 08/13/24 08:58 Respiratory Rate 23 H 08/13/24 07:30 Blood Pressure 129/77 08/13/24 08:58 Pulse Oximetry 92 08/13/24 07:30 Oxygen Delivery Me thod Room Air 08/13/24 07:30 MDM - Chest Pain Medical Decision Making Significantly elevated troponin. Patient denies chest pain at this time. Will admit as NSTEMI. Is mildly tachycardic his oxygen sat is in the low 90s persistently. I do not believe this is due to PE at this time but this may need to be further evaluated. He was started on heparin and put on topical nitro. Discussed with Dr. Shah. Baseline EKG and second EKG reviewed no acute ST changes noted. Medical Records I reviewed the patient's medical records. Lab Data I reviewed the patient's lab results. 08/13/24 07:40 08/13/24 07:40 Radiology Impressions Chest X-Ray 08/13/24 07:35 IMPRESSION: 1. Bibasilar opacities worse on the left than on the right. Findings appear to be slightly worse on today's exam when compared to prior exam. Laboratory Results WBC 8.93 10^3/uL (3.29-11.43) 08/13/24 07:40 RBC 4.99 10^6/uL (3.85-5.65) 08/13/24 07:40 Hgb 13.10 g/dL (11.27-16.99) 08/13/24 07:40 Hct 42.1 % (37-53) 08/13/24 07:40 MCV 84.4 fl (82-101) 08/13/24 07:40 MCH 26.3 pg (27-33) L 08/13/24 07:40 MCHC 31.1 g/dL (30-55) 08/13/24 07:40 RDW 14.2 % (12.1-15.1) 08/13/24 07:40 Plt Count 270 10^3/cmm (157-399) 08/13/24 07:40 MPV 11.4 fL (7.4-10.4) H 08/13/24 07:40 Neut % (Auto) 69.6 % 08/13/24 07:40 Lymph % (Auto) 18.7 % 08/13/24 07:40 [place] % (Auto) 9.7 % 08/13/24 07:40 Eos % (Auto) 1.0 % 08/13/24 07:40 Baso % (Auto) 0.7 % 08/13/24 07:40 Neut # (Auto) 6.21 10^3/uL (1.8-7.7) 08/13/24 07:40 Lymph # (Auto) 1.7 10^3/uL (0.8-4.8) 08/13/24 07:40 [place] # (Auto) 0.9 10^3/uL (0.2-0.9) 08/13/24 07:40 Eos # (Auto) 0.1 10^3/uL (0.0-0.8) 08/13/24 07:40 Baso # (Auto) 0.1 10^3/uL (0.0-0.1) 08/13/24 07:40 Nucleated RBC % (auto) 0 % 08/13/24 07:40 Nucleated RBCs # 0.0 /100WBC 08/13/24 07:40 Sodium 140 mmol/L (136-145) 08/13/24 07:40 Potassium 3.9 mmol/L (3.5-5.1) 08/13/24 07:40 Chloride 101 mmol/L (98-107) 08/13/24 07:40 Carbon Dioxide 22 mmol/L (22-29) 08/13/24 07:40 Anion Gap 20.9 (5-19) H 08/13/24 07:40 BUN 31 mg/dL (8-23) H 08/13/24 07:40 Creatinine 1.1 mg/dL (0.7-1.2) 08/13/24 07:40 GFR Calculation Not Reportable 08/13/24 07:40 Glucose 137 mg/dL (65-115) H 08/13/24 07:40 Calculated Osmolality 299 mOsm/kg (285-295) H 08/13/24 07:40 Calcium 9.0 mg/dL (8.5-10.5) 08/13/24 07:40 Total Bilirubin 0.5 mg/dL (0.15-1.2) 08/13/24 07:40 AST 19 U/L (0-40) 08/13/24 07:40 ALT 14 U/L (0-41) 08/13/24 07:40 Alkaline Phosphatase 150 U/L (40-130) H 08/13/24 07:40 Troponin T Baseline 549 ng/L (0-15) H* 08/13/24 07:40 Total Protein 7.4 g/dL (6.6-8.7) 08/13/24 07:40 Albumin 3.8 g/dL (3.5-5.2) 08/13/24 07:40 Globulin 3.6 g/dL (1.3-4.6) 08/13/24 07:40 All radiology interpretation(s) finalized by discharge Discharge Plan Discharge Patient Disposition: Admitted As Inpatient Clinical Impression: NSTEMI (non-ST elevated myocardial infarction), COPD (chronic obstructive pulmonary disease) Condition: Stable Prescriptions: No Action acetaminophen 325 mg capsule 650 mg PO Q4H PRN (Reason: PAIN/FEVER) bisacodyl 10 mg suppository 10 mg NH DAILY PRN (Reason: Constipation) calcium carbonate [Tums] 200 mg calcium (500 mg) Tablet,Chewable 1,000 mg PO QID PRN (Reason: Indigestion) aspirin 81 mg Tablet,Delayed Release (Dr/Ec) 81 mg PO DAILY@08 Refresh Tears 1 ophthalmic insert eye-both BID PRN (Reason: dry eyes) pantoprazole 20 mg tablet,delayed release (DR/EC) 20 mg PO DAILY polyethylene glycol 3350 17 gram/dose Powder 4 g PO DAILY PRN (Reason: Constipation) Qty: 30 0RF metoprolol tartrate 25 mg Tablet 25 mg PO BID@0900,2100 Qty: 60 0RF ipratropium-albuterol 0.5 mg-3 mg(2.5 mg base)/3 mL solution for nebulization 3 ml inhalation Q6H PRN (Reason: shortness of breath or wheezing) Qty: 90 0RF Referrals: Dominic Adams DO [Primary Care Provider] - Coding Level of Care Code ED Auto Service Representative for Rachelle Buckner
[2024-08-13] MEDS: aspirin 81 mg Chew Tablet 324 MG PO (07:42)
[2024-08-13 07:56] LABS: Basophils # 0.1 10^3/uL (0.0-0.1); Basophils % 0.7 %; Eosinophils # 0.1 10^3/uL (0.0-0.8); Hematocrit 42.1 % (37-53); Lymphocytes # 1.7 10^3/uL (0.8-4.8); Lymphocytes % 18.7 %; Mean Corpuscular HGB Conc 31.1 g/dL (30-55); Mean Corpuscular Hemoglobin 26.3 pg (27-33); Mean Corpuscular Volume 84.4 fl (82-101); Mean Platelet Volume 11.4 fL (7.4-10.4); Monocytes # 0.9 10^3/uL (0.2-0.9); Monocytes % 9.7 %; Neutrophils # 6.21 10^3/uL (1.8-7.7); Neutrophils % 69.6 %; Nucleated Red Blood Cells % 0 %; Platelet Count 270 10^3/cmm (157-399); Red Blood Count 4.99 10^6/uL (3.85-5.65); Red Cell Distribution Width 14.2 % (12.1-15.1); White Blood Count 8.93 10^3/uL (3.29-11.43)
[2024-08-13 08:30] LABS: Alanine Aminotransferase 14 U/L (0-41); Albumin Level 3.8 g/dL (3.5-5.2); Alkaline Phosphatase 150 U/L (40-130); Aspartate Amino Transferase 19 U/L (0-40); Blood Urea Nitrogen 31 mg/dL (8-23); Carbon Dioxide 22 mmol/L (22-29); Creatinine Clr Calc Pharmacy 66.1377; Globulin 3.6 g/dL (1.3-4.6); Total Bilirubin 0.5 mg/dL (0.15-1.2); Total Protein 7.4 g/dL (6.6-8.7); Troponin(5th) Baseline 549 ng/L (0-15)
[2024-08-13] MEDS: heparin 5,000 unit/mL INJ 1 mL IVP (08:53)
[2024-08-13 08:55] LABS: Potassium 3.9 mmol/L (3.5-5.1); Sodium 140 mmol/L (136-145)
[2024-08-13] MEDS: nitroglycerin 1 gm/inch oint Pkt 0.5 INCH TOPICAL ×2 (08:58→18:28)
[2024-08-13] MEDS: heparin drip 25,000 UNIT/500 ML PREMIX 22 UNIT IV (09:01)
[2024-08-13 09:12] LABS: Anion Gap 20.9 (5-19); Chloride 101 mmol/L (98-107)
[2024-08-13 09:13] LABS: Glucose 137 mg/dL (65-115); Osmolality Calculated 299 mOsm/kg (285-295)
--- NOTE | 2024-08-13 09:25 | ECG_ITS ---
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 Measurements Intervals [place] Rate: 92 P: 39 UT: 162 QRS: 53 QRSD: 114 T: 37 QT: 354 QTc: 440 Interpretive Statements SINUS RHYTHM PROBABLE LATERAL MYOCARDIAL INFARCTION , PROBABLY OLD [35 ms Q WAVE IN I/aVL/V5/V6] Compared to ECG 08/13/2024 07:29:45 Sinus tachycardia no longer present Ventricular premature complex(es) no longer present Myocardial infarct finding still present Electronically Signed On 08-13-2024 17:12:04 CDT by Sandeep Nicole M.D. [email or web address]
--- NOTE | 2024-08-13 10:05 | P.HP_ITS ---
Providers/Chief Complaint 2 Admitting Physician: Nixon Shah MD, hospitalist Primary Care Provider: Dominic Adams DO Chief Complaint: CHEST PAIN History of Present Illness Ben Ochoa is a 78 year old male nursing facility resident with history of COPD, mild dementia, urinary retention, diastolic heart failure, who presents from the nursing facility with complaints of chest discomfort. While he was in the bathroom, he had onset of substernal chest discomfort radiating into his arm. He was significantly short of breath. He reports he may have had similar pain several years ago, but to his knowledge has not had any cardiac surgery or stenting. He reports he is currently pain-free, and the pain lasted perhaps an hour. He had some nausea but no vomiting. Denies any fever. Occasionally has cough. Has prior history of aspiration, swallowing difficulties and is on a ground diet. According to nursing facility, liquids are not currently thickened. No blood in stool or black or tarry stools. Review of Systems 2 General: Reports: 10 or more systems reviewed and unremarkable except in HPI and below Card: Reports: chest pain; Denies: palpitations or swelling of feet/ankles Resp: Reports: dyspnea; Denies: productive cough GI: Denies: abdominal pain, nausea, vomiting, hematochezia or melena Medications/Allergies Home Medications Medication Instructions Recorded Confirmed Last Taken Type acetaminophen 325 mg capsule 650 mg PO Q4H PRN PAIN/FEVER 11/27/19 08/17/23 08/04/23 07:25 History bisacodyl 10 mg rectal suppository 10 mg ID DAILY PRN Constipation 03/01/20 08/17/23 Unknown History calcium carbonate (Tums) 1,000 mg PO QID PRN Indigestion 12/08/20 08/17/23 08/04/23 16:53 History aspirin 81 mg tablet,delayed 81 mg PO DAILY@08 01/26/21 08/17/23 08/17/23 History release Refresh Tears 1 ophthalmic insert eye-both BID 04/03/23 08/17/23 08/03/23 21:14 History PRN dry eyes pantoprazole 20 mg tablet,delayed 20 mg PO DAILY 08/05/23 08/17/23 08/17/23 History release ipratropium 0.5 mg-albuterol 3 mg 3 ml inhalation QID.RESPIRATORY 08/11/23 08/17/2323 Rx (2.5 mg base)/3 mL nebulization #30 mL soln metoprolol tartrate 25 mg tablet 25 mg PO BID@0900,2100 #60 tabs 08/11/23 08/17/23 08/17/23 Rx polyethylene glycol 3350 17 4 g PO DAILY PRN Constipation #30 08/11/23 08/17/23 Unknown Rx gram/dose oral powder grams methylprednisolone 4 mg tablets in See Rx Instructions PO .COMPLEX 08/20/23 Unknown Rx a dose pack (Medrol (Ernie)) #21 ea ipratropium 0.5 mg-albuterol 3 mg 3 ml inhalation Q6H PRN shortness 01/20/24 Unknown Rx (2.5 mg base)/3 mL nebulization of breath or wheezing #90 mL soln Allergies Allergy/AdvReac Type Severity Reaction Status Date / Time tetanus toxoid, adsorbed Allergy Unknown unknown Verified 08/20/23 04:36 PFSH Acute 2 PFSH: Medical History (Updated 08/13/24 @ 10:12 by Nioxn Shah MD) COPD (chronic obstructive pulmonary disease) Fever Persistent Hypoxia Delirium due to general medical condition Cystitis SVT (supraventricular tachycardia) AMS (altered mental status) Diastolic heart failure of unknown etiology GERD (gastroesophageal reflux disease) DJD (degenerative joint disease) Urinary retention Proteus infection BPH (benign prostatic hyperplasia) History of 2019 novel coronavirus disease (COVID-19) Ventricular premature beats Major depressive disorder, single episode, 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 Hoover 2015 Family History Father Cancer Grandfather Myocardial infarction Other CAD (coronary artery disease) Social History Smoking and tobacco/nicotine status: never used tobacco/nicotine Alcohol intake: never Substance/Drug Use: never Lives independently: No Marital status: Vitals/I&O/Wt Last Vital Signs Temp 98.0 F 08/13/24 07:30 Pulse 100 08/13/24 08:58 Resp 23 H 08/13/24 07:30 BP 129/77 08/13/24 08:58 Pulse Ox 92 08/13/24 07:30 O2 Del Method Room Air 08/13/24 07:30 Weight last 48 hrs Weight 77.564 kg Physical Exam 2 Narrative: General exam is a white male, reporting no chest discomfort currently. Oxygen saturation while I am in the room is 96% on room air HEENT: Atraumatic and normocephalic. Oropharynx edentulous, dentures noted Neck is supple Cardiovascular borderline tachycardic, frequent premature beats Lungs coarse upper respiratory noises noted bilaterally. No crackles Abdomen is soft nontender positive bowel sounds. No obvious organomegaly exam is deferred, chronic indwelling Madrigal noted Extremities no cyanosis clubbing or edema, cap refill brisk Skin no rash Neuro no obvious acute deficits Data 08/13/24 07:40 08/13/24 07:40 Other Labs: EKG per my review demonstrates significant artifact, normal axis, sinus tachycardia, frequent PVCs, small Q waves laterally. Nonspecific ST-T wave changes are noted. Chest x-ray by my review demonstrates some cardiomegaly, chronic bilateral infiltrates. The right is much improved. The left might be slightly worse/atelectasis. LFTs are normal with the exception of alk phos of 150 Calcium and albumin are normal Initial troponin 549 A&P Assessment and plan (1) NSTEMI (non-ST elevated myocardial infarction): Patient has evidence of non-ST elevation myocardial infarction with significant elevation in troponin above baseline, chest discomfort consistent with ARF Anticoagulation with heparin Aspirin has been given, continue 325 mg daily Nitroglycerin ointment every 6 hours Continue metoprolol 25 mg twice daily, first dose now as he has not had his morning medication which may explain his slight tachycardia Doubt pulmonary embolism considering no continued chest discomfort, no hypoxia, no hypotension. Echocardiogram Check BNP Troponin series Heparin for anticoagulation Cardiology consultation Telemetry Admission to CSU Check TSH (2) COPD (chronic obstructive pulmonary disease): No evidence of acute exacerbation DuoNeb as needed Budesonide twice daily Qualifiers: COPD type: unspecified COPD Qualified Code(s): J44.9 - Chronic obstructive pulmonary disease, unspecified Plan Weakness requiring motorized wheelchair, chronic indwelling Madrigal catheter, past history of aspiration Allow natural status. He reports that although he does not want CPR, ventilator he would entertain exploration of cardiac causes of chest discomfort Allow natural Heparin will suffice for DVT prophylaxis Attestations 2 Medical Necessity Statement*: Will require greater than 2 midnight stay for evaluation and treatment of non-ST elevation myocardial infarction Diagnoses NSTEMI (non-ST elevated myocardial infarction) I21.4 Chronic obstructive pulmonary disease, unspecified COPD type J44.9 COPD type: unspecified COPD Time Spent (min) 54
--- NOTE | 2024-08-13 10:30 | PC.PHAR ---
from [facility] had to call to get med list
[2024-08-13 10:52] LABS: Magnesium 1.9 mg/dL (1.7-2.3); NT Pro B Type Natriuretic Pept 1026 pg/mL (0-450); Thyroid Stimulating Hormone 3.33 uIU/mL (0.27-4.20)
[2024-08-13 11:27] LABS: Troponin 5 2HR 494.2 ng/L (0-15); Troponin 5 2HR Delta -54.8 ABS# (0-10)
--- NOTE | 2024-08-13 12:35 | PM.CONSULT ---
Providers/Reason For Consult Consulting Physician/Specialty*: Dr. Nicole/cardiology Reason for Consult*: Chest pain/elevated cardiac troponin Requesting Physician: Dr. Shah Attending Physician: Dr. Shah Primary Care Provider: Dominic Adams DO History of Present Illness History of Present Illness Ben Ochoa is a 78 year old male, long-term custodial resident with multiple comorbidities, a basically bedbound, who presented to ER with history of chest pain. Due to his comorbidities and history of dementia patient was not able to explain the history properly. He has still some pain on arrival to the ER however it got settled afterwards. Currently while I am seeing the patient patient denies any chest pain. The initial and subsequent EKG showed sinus rhythm with nonspecific ST changes. There are also intermittent PVCs. His vitals are stable blood pressure 135/68. O2 saturation normal on room air pulse 80s with PVCs. Sinus rhythm. I reviewed the lab data normal hemoglobin elevated cardiac troponins, the clinical presentation and cardiac enzymes suggestive of NSTEMI. Clinically no heart failure symptoms currently. Review of Systems Narrative: Difficult to obtain a detail systemic review however as per the record and minimal information from patient he is stable at his baseline. No recent fever. He complains of mild cough. No other symptoms on rest of the systemic review. Medications/Allergies Home Medications Medication Instructions Recorded Confirmed Last Taken Type acetaminophen 325 mg capsule 650 mg PO Q4H PRN PAIN/FEVER 11/27/19 08/13/24 08/12/24 History bisacodyl 10 mg rectal suppository 10 mg [place] DAILY PRN Constipation 03/01/20 08/13/24 Unknown History calcium carbonate (Tums) 1,000 mg PO QID PRN Indigestion 12/08/20 08/13/24 08/04/23 16:53 History aspirin 81 mg tablet,delayed 81 mg PO DAILY@08 01/26/21 08/13/24 08/12/24 History release Refresh Tears 1 ophthalmic insert eye-both BID 04/03/23 08/13/24 08/03/23 21:14 History PRN dry eyes pantoprazole 20 mg tablet,delayed 20 mg PO DAILY 08/05/23 08/13/24 08/12/24 History release metoprolol tartrate 25 mg tablet 25 mg PO BID@0900,2100 #60 tabs 08/11/23 08/13/2408/17/23 Rx polyethylene glycol 3350 17 4 g PO DAILY PRN Constipation #30 08/11/23 08/13/24 Unknown Rx gram/dose oral powder grams ipratropium 0.5 mg-albuterol 3 mg 3 ml inhalation Q6H PRN shortness 01/20/24 08/13/24 Unknown Rx (2.5 mg base)/3 mL nebulization of breath or wheezing #90 mL soln Allergies Allergy/AdvReac Type Severity Reaction Status Date / Time tetanus toxoid, adsorbed Allergy Unknown unknown Verified 08/20/23 04:36 Current Medications Generic Name Dose Route Start Last Admin Trade Name Freq PRN Reason Stop Dose Admin Heparin Sodium/Sodium Chloride 25,000 unit in 500 mls @ 0 mls/hr 08/13/24 08:45 08/13/24 09:01 Heparin Drip IV 14.18 unit/kg/hr CONT TD 22 mls/hr Administration Protocol Per Protocol PFSH Acute PFSH: Medical History COPD (chronic obstructive pulmonary disease) Fever Persistent Hypoxia Delirium due to general medical condition Cystitis SVT (supraventricular tachycardia) AMS (altered mental status) Diastolic heart failure of unknown etiology GERD (gastroesophageal reflux disease) DJD (degenerative joint disease) Urinary retention Proteus infection BPH (benign prostatic hyperplasia) History of 2019 novel coronavirus disease (COVID-19) Ventricular premature beats Major depressive disorder, single episode, 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 Hoover 2015 Family History Father Cancer Grandfather Myocardial infarction Other CAD (coronary artery disease) Social History Smoking and tobacco/nicotine status: never used tobacco/nicotine Alcohol intake: never Substance/Drug Use: never Lives independently: No Marital status: Vitals/I&O/Wt Last Vital Signs Temp 98.0 F 08/13/24 07:30 Pulse 89 08/13/24 10:58 Resp 24 H 08/13/24 10:58 BP 131/75 08/13/24 10:58 Pulse Ox 95 08/13/24 10:58 O2 Del Method Room Air 08/13/24 07:30 Weight last 48 hrs Weight 171 lb Physical Exam Narrative: Patient laying comfortably on the bed in ER. He does not appear to be any distress. He is chest pain-free. Vitals are stable. Const: OTHER: Bed bound long-term custodial patient. No apparent major abnormality noted. HENMT: OTHER: Unremarkable. Eye: OTHER: Appears normal Resp: OTHER: Mildly reduced air entry at the bases more over left side. No added sounds. Cardio: OTHER: Normal first and second heart sounds. Intermittently PVCs. No added sounds. GI: OTHER: Abdominal soft nontender. Bowel sounds audible. Extremity: OTHER: No lower extremity edema. Distal pulses palpable. Neuro: OTHER: Difficult to examine in detail. However he moves all 4 limbs. Skin: OTHER: Skin warm and dry. Data 08/13/24 07:40 08/13/24 07:40 A&P Assessment and plan (1) NSTEMI (non-ST elevated myocardial infarction): 78-year-old male patient, resident of long-term custodial, bedbound with multiple comorbidities now presented with chest pain and positive cardiac troponin enzymes, NSTEMI. Clinically he is stable hemodynamically. No ongoing further chest pain. Clinically no active signs symptoms of heart failure. Vitals are stable. Plan: Considering overall comorbidities, and his DNR status, recommend medical management of current acute pathology of NSTEMI. Recommend IV heparin for 48 hours, antiplatelets and beta-blockers. Will do echo and depending on the echo result make any further adjustment in the medication if necessary. Coding Level of Care Code 08974 Diagnoses NSTEMI (non-ST elevated myocardial infarction) I21.4 Time Spent (min) 30
--- NOTE | 2024-08-13 12:55 | USCV_ITS ---
Ben cOhoa Age: 78 Gender: M : 1945 Exam Date: 08/13/2024 19:32 Ordering Phys: Nixon Shah MD Technologist: ADAM Exam Location: [facility] [place] Indication: NSTEMI, history of CHF. BP: 139 / 81 HR: 76 Rhythm: Sinus Technical Quality: Adequate MEASUREMENTS (Male / Female) Normal Values 2D ECHO LV Diastolic Diameter PLAX 3.7 cm 4.2 - 5.9 / 3.9 - 5.3 cm IVS Diastolic Thickness 1.3 cm 0.6 - 1.0 / 0.6 - 0.9 cm IVS Systolic Thickness 1.6 cm LVPW Diastolic Thickness 1.5 cm 0.6 - 1.0 / 0.6 - 0.9 cm LVPW Systolic Thickness 1.7 cm LVOT Diameter 2.3 cm LV Ejection Fraction 2D Teich 49.2 % LV Ejection Fraction MOD 4C 44.5 % LV Ejection Fraction MOD 2C 36.1 % LV Ejection Fraction 2C AL 36.7 % LA Diameter 2.4 cm Aorta at Sinotubular Diameter 2.4 cm IVC Diameter 1.4 cm M-MODE LA Ao Ratio MM 1.0 AV Cusp Separation MM 1.6 cm DOPPLER AV Peak Velocity 90.0 cm/s LVOT Peak Velocity 82.0 cm/s AV Area Cont Eq vti 3.9 cm squared AV Area Cont Eq pk 3.7 cm squared MV Peak Velocity 89.0 cm/s MV Area PHT 6.3 cm squared Mitral E to A Ratio 0.7 TV Peak E Velocity 32.0 cm/s PV Peak Velocity 56.0 cm/s FINDINGS Left Ventricle Mild left ventricular hypertrophy. LV systolic function moderately reduced. Moderate hypokinesis of anterior and anteroseptal wall segments. Estimated LVEF 40%. Right Ventricle Normal right ventricular size and systolic function. Right Atrium Normal right atrial size. Left Atrium Normal left atrial size. Mitral Valve Structurally normal mitral valve. Trace mitral valve regurgitation. Aortic Valve Mildly thickened aortic valve. No aortic valve stenosis. Tricuspid Valve Structurally normal tricuspid valve. No tricuspid valve regurgitation. Pulmonic Valve Structurally normal pulmonic valve. Pericardium No pericardial effusion. Aorta Normal size aortic root and proximal ascending aorta. IVC Normal inferior vena cava. CONCLUSIONS Mild left ventricular hypertrophy. LV systolic function moderately reduced, LVEF 40%. Moderate hypokinesis of anterior and anteroseptal wall segments. No significant valvular abnormality noted. Normal right heart and pulmonary pressures. Sandeep Nicole MD (Electronically Signed) Final Date: 14 August 2024 09:59 S
--- NOTE | 2024-08-13 13:35 | ECG_ITS ---
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 Measurements Intervals [place] Rate: 81 P: 47 HI: 154 QRS: 48 QRSD: 102 T: 22 QT: 368 QTc: 429 Interpretive Statements SINUS RHYTHM WITH OCCASIONAL SUPRAVENTRICULAR PREMATURE COMPLEXES Compared to ECG 08/13/2024 09:25:48 Myocardial infarct finding no longer present Electronically Signed On 08-13-2024 17:02:40 CDT by Sandeep Nicole M.D. [id number]
[2024-08-13] MEDS: metoprolol tartrate 25 mg Tablet PO ×2 (13:53→20:37)
[2024-08-13 13:57] LABS: Troponin 5 6HR 433.7 ng/L (0-15); Troponin 5 6HR Delta -115.3 ng/L (0-12)
[2024-08-13 17:26] LABS: Partial Thromboplastin Time 64.3 SECONDS (23.9-36.7)
[2024-08-13] MEDS: budesonide 0.5 mg/2 mL Neb INHALATION (21:40)
[2024-08-14] VITALS (12 sets, daily range): BP systolic 109–143; BP diastolic 60–88; PULSE 68–93; RESP 18–28; TEMP 36.5–36.9; O2SAT 92–100
[2024-08-14 00:11] LABS: Partial Thromboplastin Time 52.7 SECONDS (23.9-36.7)
[2024-08-14] MEDS: nitroglycerin 1 gm/inch oint Pkt 0.5 INCH TOPICAL ×2 (00:23→06:01)
[2024-08-14 06:10] LABS: Basophils # 0.1 10^3/uL (0.0-0.1); Basophils % 0.9 %; Eosinophils # 0.2 10^3/uL (0.0-0.8); Eosinophils % 3.6 %; Hematocrit 36.6 % (37-53); Lymphocytes % 17.3 %; Mean Corpuscular HGB Conc 31.4 g/dL (30-55); Mean Corpuscular Hemoglobin 25.8 pg (27-33); Mean Corpuscular Volume 82.2 fl (82-101); Mean Platelet Volume 10.9 fL (7.4-10.4); Monocytes # 0.6 10^3/uL (0.2-0.9); Monocytes % 11.3 %; Neutrophils # 3.66 10^3/uL (1.8-7.7); Neutrophils % 66.5 %; Nucleated Red Blood Cells % 0 %; Platelet Count 212 10^3/cmm (157-399); Red Blood Count 4.45 10^6/uL (3.85-5.65); Red Cell Distribution Width 14.1 % (12.1-15.1)
[2024-08-14] MEDS: heparin drip 25,000 UNIT/500 ML PREMIX 24 UNIT IV (06:24)
[2024-08-14 06:28] LABS: Blood Urea Nitrogen 30 mg/dL (8-23); Calcium 8.3 mg/dL (8.5-10.5); Carbon Dioxide 23 mmol/L (22-29); Chloride 106 mmol/L (98-107); Glucose 109 mg/dL (65-115); Magnesium 1.9 mg/dL (1.7-2.3); Osmolality Calculated 295 mOsm/kg (285-295); Sodium 139 mmol/L (136-145)
[2024-08-14 06:30] LABS: Partial Thromboplastin Time 84.5 SECONDS (23.9-36.7)
[2024-08-14] MEDS: budesonide 0.5 mg/2 mL Neb INHALATION ×2 (07:33→20:36)
[2024-08-14] MEDS: ipratropium-albuterol 3 mL Neb INHALATION (07:33)
--- NOTE | 2024-08-14 07:44 | P.PN_ITS ---
Subjective 2 Subjective: Patient reports he is doing okay. No chest discomfort overnight. Telemetry does not indicate any arrhythmia. Cardiology is seeing the patient, believes medical therapy is indicated. Medications: Reviewed: Yes Vitals/I&O/Wt Last Vital Signs Temp 97.9 F 08/14/24 04:00 Pulse 70 08/14/24 07:36 Resp 18 08/14/24 07:36 BP 131/69 08/14/24 04:00 Pulse Ox 95 08/14/24 07:36 O2 Del Method Room Air 08/14/24 07:36 08/13/24 08/14/24 08/14/24 22:59 06:59 14:59 Intake Total 360 / 360 488.167 / 848.167 Output Total 700 / 700 200 / 900 Balance -340 / -340 288.167 / -51.833 Weight last 48 hrs Weight 77.564 kg Weight 77.564 kg Weight 77.564 kg Physical Exam 2 Narrative: General Exam no distress Neck is supple Cardiovascular regular rate and rhythm, no murmur Lungs clear Abdomen soft Extremities no cyanosis clubbing or edema Data 08/14/24 05:59 08/14/24 05:59 A&P Assessment and plan (1) NSTEMI (non-ST elevated myocardial infarction): Patient has evidence of non-ST elevation myocardial infarction with significant elevation in troponin Continue anticoagulation with heparin Continue aspirin Change nitroglycerin ointment to Imdur Continue metoprolol 25 mg twice daily Doubt pulmonary embolism considering no continued chest discomfort, no hypoxia, no hypotension. Echocardiogram pending No evidence of heart failure currently Appreciate cardiology consultation Telemetry Add low-dose ARB TSH checked and normal (2) COPD (chronic obstructive pulmonary disease): No evidence of acute exacerbation DuoNeb as needed Budesonide twice daily Qualifiers: COPD type: unspecified COPD Qualified Code(s): J44.9 - Chronic obstructive pulmonary disease, unspecified Plan Weakness requiring motorized wheelchair, chronic indwelling Madrigal catheter, past history of aspiration Allow natural status. He reports that although he does not want CPR, ventilator he would entertain exploration of cardiac causes of chest discomfort Allow natural Heparin will suffice for DVT prophylaxis Attestations 2 Medical Necessity Statement*: Needs continued hospitalization for medication adjustment following non-ST elevation myocardial infarction. Needs heparin drip for at least 48 hours for treatment. Diagnoses NSTEMI (non-ST elevated myocardial infarction) I21.4 Chronic obstructive pulmonary disease, unspecified COPD type J44.9 COPD type: unspecified COPD Time Spent (min) 23
[2024-08-14] MEDS: losartan 50 mg Tablet 25 MG PO (08:12)
[2024-08-14] MEDS: atorvastatin 40 mg Tablet PO (08:13)
[2024-08-14] MEDS: aspirin 325 mg EC Tablet PO (08:13)
[2024-08-14] MEDS: isosorbide mononitrate ER 30 mg Tablet PO (08:13)
[2024-08-14] MEDS: pantoprazole DR 40 mg Tablet PO (08:13)
[2024-08-14] MEDS: metoprolol tartrate 25 mg Tablet PO ×2 (08:13→21:29)
--- NOTE | 2024-08-14 12:21 | PC.NURSE ---
called snf called [facility] and talk to nurse in regards to pt's pinzon catheter last change. per nurse, it was change on the and , 16 [place] w/10 cc inflation. PRN irrigation with 60 ml if catheter not draining.
[2024-08-14 12:37] LABS: Partial Thromboplastin Time 69.3 SECONDS (23.9-36.7)
[2024-08-14 20:09] LABS: Partial Thromboplastin Time 66.2 SECONDS (23.9-36.7)
[2024-08-15] VITALS (7 sets, daily range): BP systolic 112–130; BP diastolic 60–74; PULSE 65–82; RESP 18–24; TEMP 36.5–37; O2SAT 95–98
[2024-08-15 00:42] LABS: Bilirubin Urine Negative (Negative); Blood Urine 2+ (Negative); Glucose Urine UA Negative (Normal); Ketones Urine Negative (Negative); Leukocyte Esterase Urine 3+ (Negative); Nitrate Urine Positive (Negative); Protein Urine 2+ (Negative); Urine Appearance Cloudy (CLEAR); Urine Color Yellow (Yellow); pH Urine 8.5 (5-7)
[2024-08-15 00:47] LABS: Add Urine Microscopic? YES; Bacteria Urine 4+ /hpf; Hyaline Casts Urine 19.43 /lpf; RBC Urine 51-100 /hpf (0-2); Squamous Epithelial Cell Urine 0-5 /hpf (0-5); WBC Urine >100 /hpf (0-5)
[2024-08-15 01:12] LABS: Add Urine Culture? Yes
[2024-08-15 02:15] LABS: Basophils # 0.1 10^3/uL (0.0-0.1); Basophils % 0.9 %; Eosinophils # 0.3 10^3/uL (0.0-0.8); Eosinophils % 4.3 %; Lymphocytes % 15.2 %; Mean Corpuscular HGB Conc 30.8 g/dL (30-55); Mean Corpuscular Hemoglobin 25.8 pg (27-33); Mean Corpuscular Volume 83.9 fl (82-101); Monocytes # 0.8 10^3/uL (0.2-0.9); Monocytes % 11.2 %; Neutrophils # 4.57 10^3/uL (1.8-7.7); Neutrophils % 68.1 %; Nucleated Red Blood Cells % 0 %; Platelet Count 229 10^3/cmm (157-399); Red Blood Count 4.53 10^6/uL (3.85-5.65); Red Cell Distribution Width 14.1 % (12.1-15.1); White Blood Count 6.71 10^3/uL (3.29-11.43)
[2024-08-15 02:40] LABS: Blood Urea Nitrogen 25 mg/dL (8-23); Calcium 8.1 mg/dL (8.5-10.5); Carbon Dioxide 24 mmol/L (22-29); Chloride 106 mmol/L (98-107); Creatinine Clr Calc Pharmacy 90.9394; Glucose 115 mg/dL (65-115); Osmolality Calculated 295 mOsm/kg (285-295); Sodium 140 mmol/L (136-145)
[2024-08-15 02:53] LABS: Partial Thromboplastin Time 69.8 SECONDS (23.9-36.7)
--- NOTE | 2024-08-15 03:46 | PC.NURSE ---
Patient urine was very strong in odor. Dr Dillon was notified and UA order was obtained. Results came back Dr ko and new order received.
[2024-08-15] MEDS: cefTRIAXone 1,000 mg SDV 1000 MG IVP (04:17)
[2024-08-15] MEDS: heparin drip 25,000 UNIT/500 ML PREMIX 22 UNIT IV (04:54)
--- NOTE | 2024-08-15 07:58 | PM.DCS ---
Discharge Providers Date of Admission: 08/13/24 12:58 Date of Discharge: August 15, 2024 Attending Provider at Admission: Noe Taylor MD Attending Provider at Discharge: Nixon Shah MD Primary Care Provider: Dominic Adams DO Diagnoses at Discharge Discharge Diagnosis (1) NSTEMI (non-ST elevated myocardial infarction): Status: Acute (2) COPD (chronic obstructive pulmonary disease): Status: Acute Qualifiers: COPD type: unspecified COPD Qualified Code(s): J44.9 - Chronic obstructive pulmonary disease, unspecified Reason for Visit Reason for Visit: CHEST PAIN Hospital Course Hospital Course Patient presented from nursing facility with significant chest discomfort. He has a history of COPD, urinary retention, diastolic heart failure, mild dementia. He was found to have markedly elevated troponin. EKG did not have ST elevation. He was diagnosed with a non-ST elevation myocardial infarction. He was given aspirin, metoprolol, heparin. Cardiology consultation was obtained. They believed medical treatment should occur. Therefore he was continued on heparin for 48 hours. Low-dose ARB, Imdur were added. During his hospital stay he had some urinary pain, and his catheter was changed with relief of his discomfort. Concern of UTI existed so antibiotic was started. Echocardiogram was obtained which demonstrated an EF of around 40% and some anterior wall motion hypokinesis. By the time of discharge she was chest discomfort free. He will be discharged back to the nursing facility on aspirin, Plavix, statin, ARB, beta-iván, sublingual nitroglycerin as needed, Imdur, with follow-up with his primary care provider as well as cardiology. He was able to ask questions and agreed with the plan. Physical Exam Narrative: General Exam no distress Neck is supple Cardiovascular regular rate and rhythm Lungs clear Abdomen soft Extremities no cyanosis clubbing or edema Urinary Catheter Management: Madrigal: Cath Placed During This Visit: yes Reason for Continuing Indwelling Catheter: Chronic Indwelling Urinary Catheter on Admission Urinary Catheter Date of Insertion: 08/14/24 Urinary Catheter Time of Insertion: 19:10 Discharge Data Studies Completed and Pending Completed Studies During Hospitalization Category Date Time Status XR chest 1V portable [id number] Stat Exams 08/13/24 07:35 Completed CV. echo complete* [id number] Routine Ultrasound 08/13/24 12:55 Completed Pending at discharge Category Date Time Status PTT [Partial Thromboplastin Time] Timed Lab 08/15/24 08:00 Ordered Urine Culture Routine Lab 08/15/24 00:18 Received Radiology Impressions Chest X-Ray 08/13/24 07:35 IMPRESSION: 1. Bibasilar opacities worse on the left than on the right. Findings appear to be slightly worse on today's exam when compared to prior exam. Laboratory Results WBC 6.71 10^3/uL (3.29-11.43) 08/15/24 02:02 RBC 4.53 10^6/uL (3.85-5.65) 08/15/24 02:02 Hgb 11.70 g/dL (11.27-16.99) 08/15/24 02:02 Hct 38.0 % (37-53) 08/15/24 02:02 MCV 83.9 fl (82-101) 08/15/24 02:02 MCH 25.8 pg (27-33) L 08/15/24 02:02 MCHC 30.8 g/dL (30-55) 08/15/24 02:02 RDW 14.1 % (12.1-15.1) 08/15/24 02:02 Plt Count 229 10^3/cmm (157-399) 08/15/24 02:02 MPV 11.0 fL (7.4-10.4) H 08/15/24 02:02 Neut % (Auto) 68.1 % 08/15/24 02:02 Lymph % (Auto) 15.2 % 08/15/24 02:02 [place] % (Auto) 11.2 % 08/15/24 02:02 Eos % (Auto) 4.3 % 08/15/24 02:02 Baso % (Auto) 0.9 % 08/15/24 02:02 Neut # (Auto) 4.57 10^3/uL (1.8-7.7) 08/15/24 02:02 Lymph # (Auto) 1.0 10^3/uL (0.8-4.8) 08/15/24 02:02 [place] # (Auto) 0.8 10^3/uL (0.2-0.9) 08/15/24 02:02 Eos # (Auto) 0.3 10^3/uL (0.0-0.8) 08/15/24 02:02 Baso # (Auto) 0.1 10^3/uL (0.0-0.1) 08/15/24 02:02 Nucleated RBC % (auto) 0 % 08/15/24 02:02 Nucleated RBCs # 0.0 /100WBC 08/15/24 02:02 APTT 69.8 SECONDS (23.9-36.7) H 08/15/24 02:02 Sodium 140 mmol/L (136-145) 08/15/24 02:02 Potassium 4.0 mmol/L (3.5-5.1) 08/15/24 02:02 Chloride 106 mmol/L (98-107) 08/15/24 02:02 Carbon Dioxide 24 mmol/L (22-29) 08/15/24 02:02 Anion Gap 14.0 (5-19) 08/15/24 02:02 BUN 25 mg/dL (8-23) H 08/15/24 02:02 Creatinine 0.8 mg/dL (0.7-1.2) 08/15/24 02:02 GFR Calculation Not Reportable 08/15/24 02:02 Glucose 115 mg/dL (65-115) 08/15/24 02:02 Calculated Osmolality 295 mOsm/kg (285-295) 08/15/24 02:02 Calcium 8.1 mg/dL (8.5-10.5) L 08/15/24 02:02 Magnesium 1.9 mg/dL (1.7-2.3) 08/14/24 05:59 Total Bilirubin 0.5 mg/dL (0.15-1.2) 08/13/24 07:40 AST 19 U/L (0-40) 08/13/24 07:40 ALT 14 U/L (0-41) 08/13/24 07:40 Alkaline Phosphatase 150 U/L (40-130) H 08/13/24 07:40 Troponin T Baseline 549 ng/L (0-15) H* 08/13/24 07:40 Troponin T 120 Minute 494.2 ng/L (0-15) H 08/13/24 10:14 Delta Troponin T -54.8 ABS# (0-10) L 08/13/24 10:14 Troponin T Hi Sens 6Hr 433.7 ng/L (0-15) H 08/13/24 13:20 Troponin T Hi Sens 6Hr Delta -115.3 ng/L (0-12) L 08/13/24 13:20 NT-Pro-B Natriuret Pep 1026 pg/mL (0-450) H 08/13/24 07:40 Total Protein 7.4 g/dL (6.6-8.7) 08/13/24 07:40 Albumin 3.8 g/dL (3.5-5.2) 08/13/24 07:40 Globulin 3.6 g/dL (1.3-4.6) 08/13/24 07:40 TSH 3.33 uIU/mL (0.27-4.20) 08/13/24 07:40 Urine Color Yellow (Yellow) 08/15/24 00:18 Urine Appearance Cloudy (CLEAR) A 08/15/24 00:18 Urine pH 8.5 (5-7) A 08/15/24 00:18 Ur Specific [place] 1.020 (1.005-1.030) 08/15/24 00:18 Urine Protein 2+ (Negative) A 08/15/24 00:18 Urine Glucose (UA) Negative (Normal) 08/15/24 00:18 Urine Ketones Negative (Negative) 08/15/24 00:18 Urine Blood 2+ (Negative) A 08/15/24 00:18 Urine Nitrate Positive (Negative) A 08/15/24 00:18 Urine Bilirubin Negative (Negative) 08/15/24 00:18 Urine Urobilinogen 1.0 mg/dL (Negative) 08/15/24 00:18 Ur Leukocyte Esterase 3+ (Negative) A 08/15/24 00:18 Urine RBC 51-100 /hpf (0-2) H 08/15/24 00:18 Urine WBC >100 /hpf (0-5) H 08/15/24 00:18 Ur Squamous Epith Cells 0-5 /hpf (0-5) 08/15/24 00:18 Triple Phos Crystals 5-10 /hpf H 08/15/24 00:18 Amorphous Sediment Not Reportable 08/15/24 00:18 Urine Bacteria 4+ /hpf (NONE) H 08/15/24 00:18 Hyaline Casts 19.43 /lpf 08/15/24 00:18 Vitals Last Vital Signs Temp 97.7 F 08/15/24 07:43 Pulse 66 08/15/24 07:43 Resp 19 H 08/15/24 07:43 BP 130/74 08/15/24 07:43 Pulse Ox 98 08/15/24 07:43 O2 Del Method Nasal Cannula 08/15/24 07:43 Discharge Plan Discharge Patient Disposition: Xfer SNF Condition: Stable Prescriptions: New atorvastatin 40 mg Tablet 40 mg PO DAILY Qty: 30 0RF losartan 50 mg Tablet 25 mg PO DAILY Qty: 15 0RF isosorbide mononitrate 30 mg Tablet Extended Release 24 Hr 30 mg PO DAILY Qty: 30 0RF cefdinir 300 mg capsule 300 mg PO Q12H 7 Days Qty: 14 0RF clopidogrel [Plavix] 75 mg tablet 75 mg PO DAILY Qty: 30 0RF nitroglycerin 0.4 mg tablet, sublingual 0.4 mg sublingual Q5M PRN (Reason: chest pain) Qty: 20 0RF Rx Instructions: do not exceed 3 doses per episode Continued acetaminophen 325 mg capsule 650 mg PO Q4H PRN (Reason: PAIN/FEVER) bisacodyl 10 mg suppository 10 mg DE DAILY PRN (Reason: Constipation) calcium carbonate [Tums] 200 mg calcium (500 mg) Tablet,Chewable 1,000 mg PO QID PRN (Reason: Indigestion) aspirin 81 mg Tablet,Delayed Release (Dr/Ec) 81 mg PO DAILY@08 Refresh Tears 1 ophthalmic insert eye-both BID PRN (Reason: dry eyes) pantoprazole 20 mg tablet,delayed release (DR/EC) 20 mg PO DAILY polyethylene glycol 3350 17 gram/dose Powder 4 g PO DAILY PRN (Reason: Constipation) Qty: 30 0RF metoprolol tartrate 25 mg Tablet 25 mg PO BID@0900,2100 Qty: 60 0RF ipratropium-albuterol 0.5 mg-3 mg(2.5 mg base)/3 mL solution for nebulization 3 ml inhalation Q6H PRN (Reason: shortness of breath or wheezing) Qty: 90 0RF Discharge Orders: Discharge Order (Routine); Ordered 08/15/24 Ordered By: Nixon Shah Referrals: Dhara Price FNP [Nurse Practitioner] - 2 weeks (follow up NSTEMI) Dominic Adams DO [Primary Care Provider] - 4-7 days Discharge Diet: Cardiac Discharge Activity: Increase activity as tolerated Activity Restrictions/Additional Instructions: Take all medicine as prescribed Follow-up with primary care provider 3 to 5 days at nursing facility Follow-up with cardiology in 2 weeks Return for any concerns Discharge Attestations Time Spent in Discharge Care*: greater than 30 min Status at Discharge: Cognitive status at discharge: cognitively intact, Behavioral status at discharge: cooperative, Quality Metrics Clinical Quality Measures [ Acute Myocardial Infaction { Clinical Trial Participant: No; Contraindication to aspirin: None; Aspirin prescribed; Contraindication to statin: None; Statin prescribed; Contraindication to PCI: Intervention not indicated;}] Coding Level of Care Code 34724 Total time (in minutes) for Discharge: 36 Diagnoses NSTEMI (non-ST elevated myocardial infarction) I21.4 Chronic obstructive pulmonary disease, unspecified COPD type J44.9 COPD type: unspecified COPD
[2024-08-15] MEDS: losartan 50 mg Tablet 25 MG PO (08:28)
[2024-08-15] MEDS: aspirin 325 mg EC Tablet PO (08:28)
[2024-08-15] MEDS: isosorbide mononitrate ER 30 mg Tablet PO (08:28)
[2024-08-15] MEDS: atorvastatin 40 mg Tablet PO (08:28)
[2024-08-15] MEDS: pantoprazole DR 40 mg Tablet PO (08:29)
[2024-08-15] MEDS: metoprolol tartrate 25 mg Tablet PO (08:29)
[2024-08-15] MEDS: budesonide 0.5 mg/2 mL Neb INHALATION (09:09)
[2024-08-15] MEDS: ipratropium-albuterol 3 mL Neb INHALATION (09:09)
--- NOTE | 2024-08-15 09:14 | PC.NURSE ---
cardiology notified talked to nurse practitioner Jazmin to let her know that hospitalist is discharging pt back to SNF today. Asked her if they can review pt's dc meds.
--- NOTE | 2024-08-15 09:41 | PC.NURSE ---
called snf twice no one is answering the phone calls and cannot leave a message on this number provided [phone].
--- NOTE | 2024-08-15 10:00 | PC.NURSE ---
report called to [facility] Talked to Poornima nurse and hand off report given to her on pt's discharge instructions and meds and ff-up appts made.
--- NOTE | 2024-08-15 10:05 | PC.NURSE ---
waiting for transportation to [place] medicaid ride called and they will be here between 10:15 to 10:30 am.
--- NOTE | 2024-08-15 10:36 | PC.NURSE ---
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
--- NOTE | 2024-08-15 10:39 | PC.NURSE ---
pt lucrecia sent with him Pt discharge packet given to medicaid rider and pt's belongings such as clothes and his cellphone,dentures are with him upon transportation.
== END 2024-08-15 10:05 | disposition skilled nursing facility (03) | DRG 281 ==
LOC: ER 11:35 → CSU 13:16
PROVIDERS: Internal Medicine; Internal Medicine Cardiovascular Disease; Admitting Provider Student in an Organized Health Care Education/Training Program; Emergency Provider Family Medicine; PCP Internal Medicine; Visit Provider Internal Medicine
DX: I21.4 Non-ST elevation (NSTEMI) myocardial infarction (principal); N39.0 Urinary tract infection, site not specified; J44.9 Chronic obstructive pulmonary disease, unspecified; F03.A0 Unspecified dementia, mild, without behavioral disturbance, psychotic disturbance, mood disturbance, and anxiety; K21.9 Gastro-esophageal reflux disease without esophagitis; N40.0 Benign prostatic hyperplasia without lower urinary tract symptoms; R00.0 Tachycardia, unspecified; Z96.0 Presence of urogenital implants; Z66 Do not resuscitate; I49.3 Ventricular premature depolarization; Z79.82 Long term (current) use of aspirin; Z74.01 Bed confinement status; Z93.1 Gastrostomy status; Z86.16 Personal history of COVID-19
CPT/HCPCS: 36415; 71045; 80048; 80053; 81001; 83735; 83880; 84443; 84484; 85025; 85730; 87077; 87086; 87186; 93005; 93306; 94640; 96365; 96366; 96375; 99285; J0696; J1644; J7626

== ENCOUNTER 2024-08-17 06:27 | Emergency (ER) | payer MEDICAID, SELFPAY ==
--- NOTE | 2024-08-17 06:33 | XRR_ITS ---
PROCEDURE INFORMATION: Exam: XR Chest Exam date and time: 08/17/2024 6:47 AM Age: 78 years old Clinical indication: Chest pressure; Patient HX: C/O chest pain; Additional info: Cp TECHNIQUE: Imaging protocol: Radiologic exam of the chest. Views: 1 view. COMPARISON: CR XR chest 1V portable [id number] 08/13/2024 7:56 AM FINDINGS: Lungs: Previously noted interstitial prominence of the right lower lobe has resolved. Pleural spaces: Small left pleural effusion with airspace disease in the left lung base is slightly improved. Heart/Mediastinum: Unremarkable. No cardiomegaly. Bones/joints: Unremarkable. XR/XR chest 1V portable [id number] IMPRESSION: Left lung base infiltrate with small effusion modestly decreased.
--- NOTE | 2024-08-17 06:33 | ECG_ITS ---
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 Measurements Intervals [place] Rate: 83 P: 33 [place]: 136 QRS: 55 QRSD: 99 T: -40 QT: 375 QTc: 441 Interpretive Statements SINUS RHYTHM WITH OCCASIONAL VENTRICULAR PREMATURE COMPLEXES MODERATE T-WAVE ABNORMALITY, CONSIDER INFERIOR ISCHEMIAII/aVF] Compared to ECG 08/13/2024 14:28:36 Ventricular premature complex(es) now present Possible ischemia now present Electronically Signed On 08-17-2024 14:02:41 CALLIOPE PLAYER by Sandeep Nicole M.D. [id number]
[2024-08-17 06:34] VITALS: BP 120/65; PULSE 82; RESP 20; TEMP 36.8; O2SAT 94; BMI 17.0
--- NOTE | 2024-08-17 06:36 | ED_ITS ---
HPI - Chest Pain 2 General: Chief Complaint: Chest Pain Stated Complaint: CP Time Seen by Provider: 08/17/24 06:31 Source: patient and EMS Mode of arrival: EMS Limitations: no limitations History of Present Illness: 78-year-old male here from long term complaining of chest pain throughout the night states he is currently chest pain-free patient does have a history of dementia and has multiple other comorbidities. 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 Has had some mild dyspnea he is not hypoxic here and denies any cough or fevers Associated symptoms: Reports dyspnea; Deny abdominal pain, fever(s), nausea or vomiting Related Data Home Medications Medication Instructions Recorded Confirmed acetaminophen 325 mg capsule 650 mg PO Q4H PRN PAIN/FEVER 11/27/19 08/17/24 calcium carbonate (Tums) 1,000 mg PO QID PRN Indigestion 12/08/20 08/17/24 aspirin 81 mg tablet,delayed 81 mg PO DAILY@08 01/26/21 08/17/24 release losartan 25 mg tablet 25 mg PO DAILY 08/17/24 08/17/24 omeprazole 20 mg capsule,delayed 20 mg PO DAILY 08/17/24 08/17/24 release Previous Rx's Medication Instructions Recorded metoprolol tartrate 25 mg tablet 25 mg PO BID@0900,2100 #60 tabs 08/11/23 ipratropium 0.5 mg-albuterol 3 mg 3 ml inhalation Q6H PRN shortness 01/20/24 (2.5 mg base)/3 mL nebulization of breath or wheezing #90 mL soln atorvastatin 40 mg tablet 40 mg PO DAILY #30 tabs 08/15/24 cefdinir 300 mg capsule 300 mg PO Q12H 7 days #14 caps 08/15/24 clopidogrel 75 mg tablet (Plavix) 75 mg PO DAILY #30 tabs 08/15/24 isosorbide mononitrate 30 mg 30 mg PO DAILY #30 tabs 08/15/24 tablet,extended release 24 hr nitroglycerin 0.4 mg sublingual 0.4 mg sublingual Q5M PRN chest 08/15/24 tablet pain #20 tabs Allergies Allergy/AdvReac Type Severity Reaction Status Date / Time tetanus toxoid, adsorbed Allergy Unknown unknown Verified 08/20/23 04:36 Review of Systems 2 Const: Denies: fever(s), chills, body aches or change in appetite ENMT: Denies: throat pain or dental pain Card: Reports: chest pain Resp: Reports: dyspnea GI: Denies: abdominal pain, nausea, vomiting or diarrhea Musc: Denies: neck pain or back pain Skin/Breast: Denies: rash Neuro: Denies: headache(s) PFSH ED 2 PFSH: Medical History COPD (chronic obstructive pulmonary disease) Fever Persistent Hypoxia Delirium due to general medical condition Cystitis SVT (supraventricular tachycardia) AMS (altered mental status) Diastolic heart failure of unknown etiology GERD (gastroesophageal reflux disease) DJD (degenerative joint disease) Urinary retention Proteus infection BPH (benign prostatic hyperplasia) History of 2019 novel coronavirus disease (COVID-19) Ventricular premature beats Major depressive disorder, single episode, 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 Hoover 2015 Family History Father Cancer Grandfather Myocardial infarction Other CAD (coronary artery disease) Social History Smoking and tobacco/nicotine status: never used tobacco/nicotine Alcohol intake: never Substance/Drug Use: never Lives independently: No Marital status: Physical Exam 2 Const: COMMON NORMALS: no acute distress, patient oriented x3 and healthy appearing HENMT: COMMON NORMALS: normocephalic and atraumatic HEAD & SCALP: n ormocephalic and atraumatic Eye: COMMON NORMALS: conjunctivae normal CONJUNCTIVA: Yes conjunctivae normal Neck/C-Spine: COMMON NORMALS: full ROM and supple Chest: COMMONS NORMALS: normal inspection of the chest Resp: COMMON NORMALS: normal respiratory effort, No retractions, No use of accessory muscles and clear to auscultation bilaterally AUSCULTATION: clear to auscultation bilaterally Cardio: COMMON NORMALS: regular rate, regular rhythm and No murmurs present (Cardio) RATE: regular rate RHYTHM: regular rhythm GI: COMMON NORMALS: Normal to inspection, nondistended, normoactive bowel sounds present, Soft to palpation, non-tender and no masses PALPATION: Yes Soft to palpation Extremity: COMMON NORMALS: normal to inspection and full ROM Neuro: COMMON NORMALS: patient oriented x3, moves all extremities and no focal motor deficits Psych: COMMON NORMALS: mental status grossly normal, Normal thought process present and cooperative THOUGHT PROCESS: Normal thought process present Skin: COMMON NORMALS: no rashes or lesions noted and no wounds GENERAL SKIN EXAM: no rashes or lesions noted Course 2 Vital Signs: Vital signs: Vital Signs Temperature 98.2 F 08/17/24 06:34 Pulse Rate 73 08/17/24 08:17 Respiratory Rate 20 H 08/17/24 06:34 Blood Pressure 135/76 08/17/24 08:17 Pulse Oximetry 94 08/17/24 06:34 MDM - Chest Pain Medical Decision Making Patient presents here with chest pain has been chest pain-free here his troponin is trending down he is to continue his medical management no signs of pulmonary embolism he stable for discharge back to long term. Lab Data I reviewed the patient's lab results. 08/17/24 06:30 08/17/24 06:30 Radiology Impressions Chest X-Ray 08/17/24 06:33 IMPRESSION: Left lung base infiltrate with small effusion modestly decreased. Laboratory Results WBC 7.62 10^3/uL (3.29-11.43) 08/17/24 06:30 RBC 5.11 10^6/uL (3.85-5.65) 08/17/24 06:30 Hgb 13.10 g/dL (11.27-16.99) 08/17/24 06:30 Hct 42.9 % (37-53) 08/17/24 06:30 MCV 84.0 fl (82-101) 08/17/24 06:30 MCH 25.6 pg (27-33) L 08/17/24 06:30 MCHC 30.5 g/dL (30-55) 08/17/24 06:30 RDW 14.0 % (12.1-15.1) 08/17/24 06:30 Plt Count 278 10^3/cmm (157-399) 08/17/24 06:30 MPV 11.3 fL (7.4-10.4) H 08/17/24 06:30 Neut % (Auto) 68.6 % 08/17/24 06:30 Lymph % (Auto) 16.9 % 08/17/24 06:30 Elk % (Auto) 8.8 % 08/17/24 06:30 Eos % (Auto) 4.1 % 08/17/24 06:30 Baso % (Auto) 0.8 % 08/17/24 06:30 Neut # (Auto) 5.23 10^3/uL (1.8-7.7) 08/17/24 06:30 Lymph # (Auto) 1.3 10^3/uL (0.8-4.8) 08/17/24 06:30 Elk # (Auto) 0.7 10^3/uL (0.2-0.9) 08/17/24 06:30 Eos # (Auto) 0.3 10^3/uL (0.0-0.8) 08/17/24 06:30 Baso # (Auto) 0.1 10^3/uL (0.0-0.1) 08/17/24 06:30 Nucleated RBC % (auto) 0 % 08/17/24 06:30 Nucleated RBCs # 0.0 /100WBC 08/17/24 06:30 Sodium 145 mmol/L (136-145) 08/17/24 06:30 Potassium 4.1 mmol/L (3.5-5.1) 08/17/24 06:30 Chloride 108 mmol/L (98-107) H 08/17/24 06:30 Carbon Dioxide 25 mmol/L (22-29) 08/17/24 06:30 Anion Gap 16.1 (5-19) 08/17/24 06:30 BUN 21 mg/dL (8-23) 08/17/24 06:30 Creatinine 0.9 mg/dL (0.7-1.2) 08/17/24 06:30 GFR Calculation Not Reportable 08/17/24 06:30 Glucose 98 mg/dL (65-115) 08/17/24 06:30 Calculated Osmolality 303 mOsm/kg (285-295) H 08/17/24 06:30 Calcium 8.5 mg/dL (8.5-10.5) 08/17/24 06:30 Total Bilirubin 0.3 mg/dL (0.15-1.2) 08/17/24 06:30 AST 20 U/L (0-40) 08/17/24 06:30 ALT 14 U/L (0-41) 08/17/24 06:30 Alkaline Phosphatase 141 U/L (40-130) H 08/17/24 06:30 Troponin T Baseline 258 ng/L (0-15) H* 08/17/24 06:30 Troponin T 120 Minute 230.5 ng/L (0-15) H 08/17/24 08:27 Delta Troponin T -27.5 ABS# (0-10) L 08/17/24 08:27 Total Protein 6.8 g/dL (6.6-8.7) 08/17/24 06:30 Albumin 3.6 g/dL (3.5-5.2) 08/17/24 06:30 Globulin 3.2 g/dL (1.3-4.6) 08/17/24 06:30 Lipase 52 U/L (13-60) 08/17/24 06:30 All radiology interpretation(s) finalized by discharge Discharge Plan Discharge Patient Disposition: Home Clinical Impression: Chest pain Condition: Stable Prescriptions: No Action acetaminophen 325 mg capsule 650 mg PO Q4H PRN (Reason: PAIN/FEVER) calcium carbonate [Tums] 200 mg calcium (500 mg) Tablet,Chewable 1,000 mg PO QID PRN (Reason: Indigestion) aspirin 81 mg Tablet,Delayed Release (Dr/Ec) 81 mg PO DAILY@08 metoprolol tartrate 25 mg Tablet 25 mg PO BID@0900,2100 Qty: 60 0RF ipratropium-albuterol 0.5 mg-3 mg(2.5 mg base)/3 mL solution for nebulization 3 ml inhalation Q6H PRN (Reason: shortness of breath or wheezing) Qty: 90 0RF atorvastatin 40 mg Tablet 40 mg PO DAILY Qty: 30 0RF isosorbide mononitrate 30 mg Tablet Extended Release 24 Hr 30 mg PO DAILY Qty: 30 0RF cefdinir 300 mg capsule 300 mg PO Q12H 7 Days Qty: 14 0RF clopidogrel [Plavix] 75 mg tablet 75 mg PO DAILY Qty: 30 0RF nitroglycerin 0.4 mg tablet, sublingual 0.4 mg sublingual Q5M PRN (Reason: chest pain) Qty: 20 0RF Rx Instructions: do not exceed 3 doses per episode losartan 25 mg Tablet 25 mg PO DAILY omeprazole 20 mg Capsule,Delayed Release(Dr/Ec) 20 mg PO DAILY Discharge Orders: Discharge ED (Routine); Ordered 08/17/24 Ordered By: Cherise Gonzales Referrals: Dominic Adams DO [Primary Care Provider] - 1-3 days Discharge Diet: Advance as tolerated Discharge Activity: Resume usual activity Patient Instructions: Chest Pain (ED) Coding Level of Care Code ED Nanny Caregiver for Rachelle Buckner
[2024-08-17 06:51] LABS: Basophils # 0.1 10^3/uL (0.0-0.1); Basophils % 0.8 %; Eosinophils # 0.3 10^3/uL (0.0-0.8); Eosinophils % 4.1 %; Hematocrit 42.9 % (37-53); Lymphocytes # 1.3 10^3/uL (0.8-4.8); Lymphocytes % 16.9 %; Mean Corpuscular HGB Conc 30.5 g/dL (30-55); Mean Corpuscular Hemoglobin 25.6 pg (27-33); Mean Platelet Volume 11.3 fL (7.4-10.4); Monocytes # 0.7 10^3/uL (0.2-0.9); Monocytes % 8.8 %; Neutrophils # 5.23 10^3/uL (1.8-7.7); Neutrophils % 68.6 %; Nucleated Red Blood Cells % 0 %; Platelet Count 278 10^3/cmm (157-399); Red Blood Count 5.11 10^6/uL (3.85-5.65); White Blood Count 7.62 10^3/uL (3.29-11.43)
[2024-08-17 07:08] LABS: Alanine Aminotransferase 14 U/L (0-41); Albumin Level 3.6 g/dL (3.5-5.2); Alkaline Phosphatase 141 U/L (40-130); Anion Gap 16.1 (5-19); Aspartate Amino Transferase 20 U/L (0-40); Blood Urea Nitrogen 21 mg/dL (8-23); Calcium 8.5 mg/dL (8.5-10.5); Carbon Dioxide 25 mmol/L (22-29); Chloride 108 mmol/L (98-107); Globulin 3.2 g/dL (1.3-4.6); Glucose 98 mg/dL (65-115); Lipase 52 U/L (13-60); Osmolality Calculated 303 mOsm/kg (285-295); Potassium 4.1 mmol/L (3.5-5.1); Sodium 145 mmol/L (136-145); Total Bilirubin 0.3 mg/dL (0.15-1.2); Total Protein 6.8 g/dL (6.6-8.7)
[2024-08-17 07:13] LABS: Troponin(5th) Baseline 258 ng/L (0-15)
--- NOTE | 2024-08-17 07:16 | PC.PHAR ---
Current med list from [facility] shows several medications dc'd on 08/14/24, they are as follows: Bisacodyl 10mg suppository,Miralax, Protonix 20mg, refresh tears. All removed from med list.
[2024-08-17 08:17] VITALS: BP 135/76; PULSE 73
[2024-08-17 08:57] LABS: Troponin 5 2HR 230.5 ng/L (0-15); Troponin 5 2HR Delta -27.5 ABS# (0-10)
== END 2024-08-17 12:40 | disposition home or self-care (01) ==
PROVIDERS: Emergency Provider Emergency Medicine; PCP Internal Medicine
DX: R07.9 Chest pain, unspecified (principal); Z79.82 Long term (current) use of aspirin; Z79.02 Long term (current) use of antithrombotics/antiplatelets; J44.9 Chronic obstructive pulmonary disease, unspecified; I50.30 Unspecified diastolic (congestive) heart failure
CPT/HCPCS: 36415; 71045; 80053; 83690; 84484; 85025; 93005; 99285

== ENCOUNTER 2024-09-03 08:00 | Emergency (ER) | payer MEDICAID, SELFPAY ==
[2024-09-03] VITALS (72 sets, daily range): BP systolic 108–131; BP diastolic 58–89; PULSE 57–86; RESP 12–29; TEMP 36.4; O2SAT 83–99; BMI 16.9
--- NOTE | 2024-09-03 08:01 | XR_ITS ---
WS: [id number] Exam: XR chest 1V portable [id number] Date/Time of Exam: 09/03/2024 8:05 AM Reason For Exam: chest pain Comparison 08/17/2024. The lungs are fully inflated. No acute infiltrates. Chronic changes in the LEFT lower lung zone. No p leural effusion. Cardiomediastinal silhouette is unremarkable. Bilateral apical pleural thickening. M oderate DJD of both shoulders. XR/XR chest 1V portable [id number] IMPRESSION: 1. No acute cardiopulmonary finding.
--- NOTE | 2024-09-03 08:01 | ECG_ITS ---
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[id number] Requested By: Jazmin Phan Order Number: [id number] Reading MD: RASHIDA BARRIGA Measurements Intervals [place] Rate: 92 P: 53 OR: 151 QRS: 60 QRSD: 109 T: 48 QT: 358 QTc: 443 Interpretive Statements SINUS RHYTHM POSSIBLE INFERIOR MYOCARDIAL INFARCTION , PROBABLY OLD [30 ms Q WAVE IN II/aVF] Compared to ECG 08/17/2024 06:32:46 Myocardial infarct finding now present Ventricular premature complex(es) no longer present T-wave abnormality no longer present Electronically Signed On 09-03-2024 17:21:18 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
--- NOTE | 2024-09-03 08:05 | W.ED.CHESTPA ---
Documented by User: PABLO Fang 09/03/24 08:41 HPI - Chest Pain General: Chief Complaint: Chest Pain Stated Complaint: CHEST PAIN Time Seen by Provider: 09/03/24 08:00 Source: patient and EMS Mode of arrival: EMS Limitations: no limitations History of Present Illness: Patient is a 78-year-old male who presents to ED today via EMS for evaluation of chest pain. PMH includes COPD, urinary retention with Madrigal, diastolic heart failure, mild dementia. He was admitted to our facility earlier this month due to a non-STEMI. He was treated with aspirin, metoprolol, heparin with plan from cardiology for medical treatment only. Echocardiogram was obtained showing an EF of around 40%. Date of discharge from the hospital was 08/15. He returned to the the emergency department on 08/[address] Gonzales. He was discharged home following that visit. It looks like he did have cardiology scheduled but documentation was canceled. He states today chest pain started this morning. He received 1 nitro and aspirin en route by EMS and upon arrival he feels like his chest pain is much improved. MD complaint: chest pain Onset (ago): hour(s) Prior episodes: Yes Onset: during rest Pain location: substernal Pain radiation: none Severity: mild Quality: heaviness Relieving factors: nitroglycerin Exacerbating factors: nothing Associated symptoms: Deny abdominal pain, dyspnea, fever(s), nausea, palpitations, syncope or vomiting Treatment prior to arrival: aspirin and nitroglycerin Risk Factors: Thoracic aortic dissection risk factors: none Related Data Home Medications Medication Instructions Recorded Confirmed acetaminophen 325 mg capsule 650 mg PO Q4H PRN PAIN/FEVER 11/27/19 09/03/24 calcium carbonate (Tums) 1,000 mg PO QID PRN Indigestion 12/08/20 09/03/24 aspirin 81 mg tablet,delayed 81 mg PO DAILY@08 01/26/21 09/03/24 release losartan 25 mg tablet 25 mg PO DAILY 08/17/24 09/03/24 omeprazole 20 mg capsule,delayed 20 mg PO DAILY 08/17/24 09/03/24 release Previous Rx's Medication Instructions Recorded metoprolol tartrate 25 mg tablet 25 mg PO BID@0900,2100 #60 tabs 08/11/23 ipratropium 0.5 mg-albuterol 3 mg 3 ml inhalation Q6H PRN shortness 01/20/24 (2.5 mg base)/3 mL nebulization of breath or wheezing #90 mL soln atorvastatin 40 mg tablet 40 mg PO DAILY #30 tabs 08/15/24 clopidogrel 75 mg tablet (Plavix) 75 mg PO DAILY #30 tabs 08/15/24 nitroglycerin 0.4 mg sublingual 0.4 mg sublingual Q5M PRN chest 08/15/24 tablet pain #20 tabs isosorbide mononitrate 60 mg 60 mg PO DAILY #30 tabs 09/03/24 tablet,extended release 24 hr Allergies Allergy/AdvReac Type Severity Reaction Status Date / Time tetanus toxoid, adsorbed Allergy Unknown unknown Verified 09/03/24 08:19 Review of Systems Const: Denies: fever(s), chills, body aches, fatigue or malaise Card: Reports: chest pain; Denies: palpitations, irregular heart rhythm, edema, swelling of feet/ankles, lightheadedness, syncope, pre-syncope, dyspnea on exertion, orthopnea, leg pain with exertion or acrocyanosis Resp: Denies: dyspnea, productive cough, non-productive cough, wheezing, pain on inspiration or change in phlegm color GI: Denies: abdominal pain, nausea, vomiting or diarrhea : Denies: flank pain Musc: Denies: neck pain, back pain, extremity pain, extremity swelling, joint pain or joint swelling Skin/Breast: Denies: rash Neuro: Denies: headache(s), numbness in extremities, weakness in extremities, sensory changes or dizziness [facility] ED PFSH: Medical History COPD (chronic obstructive pulmonary disease) Fever Persistent Hypoxia Delirium due to general medical condition Cystitis SVT (supraventricular tachycardia) AMS (altered mental status) Diastolic heart failure of unknown etiology GERD (gastroesophageal reflux disease) DJD (degenerative joint disease) Urinary retention Proteus infection BPH (benign prostatic hyperplasia) History of 2019 novel coronavirus disease (COVID-19) Ventricular premature beats Major depressive disorder, single episode, 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 Hoover 2015 Family History Father Cancer Grandfather Myocardial infarction Other CAD (coronary artery disease) Social History Smoking and tobacco/nicotine status: never used tobacco/nicotine Alcohol intake: never Substance/Drug Use: never Lives independently: No Marital status: Physical Exam Const: COMMON NORMALS: no acute distress, patient oriented x3, no limitations and alert GENERAL APPEARANCE: cooperative and frail appearing ORIENTATION/CONSCIOUSNESS: Yes awake, Yes oriented to person, Yes oriented to place and Yes oriented to time Eye: COMMON NORMALS: no scleral icterus Neck/C-Spine: COMMON NORMALS: no JVD Chest: COMMONS NORMALS: normal inspection of the chest and normal palpation of entire chest wall Resp: COMMON NORMALS: normal respiratory effort and clear to auscultation bilaterally AUSCULTATION: clear to auscultation bilaterally Cardio: COMMON NORMALS: no JVD, regular rate and regular rhythm RATE: regular rate RHYTHM: regular rhythm GI: COMMON NORMALS: Normal to inspection, nondistended, normoactive bowel sounds present, Soft to palpation, non-tender, No hepatosplenomegaly present and no masses PALPATION: Yes Soft to palpation and Yes No hepatosplenomegaly present : COMMON NORMALS: Yes no CVA tenderness BLADDER/KIDNEY EXAM: Yes no CVA tenderness Back/Pelvis: COMMON NORMALS: no CVA tenderness Extremity: COMMON NORMALS: no clubbing, cyanosis or edema, no calf tenderness and no pedal edema GENERAL: Yes normal exam except as noted Neuro: CHAI COMA SCALE: document GCS findings Chai coma scale eye opening: Spontaneous [place] coma scale verbal response: Orientated [place] coma scale motor response: Obey commands [place] coma scale total score: 15 COMMON NORMALS: patient oriented x3, moves all extremities, no focal motor deficits and no sensory deficits noted SENSORIUM/ORIENTATION: Yes alert, Yes oriented to person, Yes oriented to place and Yes oriented to time Skin: COMMON NORMALS: no rashes or lesions noted GENERAL SKIN EXAM: no rashes or lesions noted Course Vital Signs: Vital signs: Vital Signs Temperature 97.6 F 09/03/24 08:01 Pulse Rate 86 09/03/24 08:01 Respiratory Rate 17 09/03/24 08:01 Blood Pressure 128/89 09/03/24 08:01 Pulse Oximetry 98 09/03/24 08:01 Oxygen Delivery Me thod Room Air 09/03/24 08:01 MDM - Chest Pain Lab Data 09/03/24 07:52 09/03/24 07:52 Radiology Impressions Chest X-Ray 09/03/24 08:01 IMPRESSION: 1. No acute cardiopulmonary finding. Laboratory Results WBC 10.79 10^3/uL (3.29-11.43) 09/03/24 07:52 RBC 5.63 10^6/uL (3.85-5.65) 09/03/24 07:52 Hgb 14.60 g/dL (11.27-16.99) 09/03/24 07:52 Hct 47.6 % (37-53) 09/03/24 07:52 MCV 84.5 fl (82-101) 09/03/24 07:52 MCH 25.9 pg (27-33) L 09/03/24 07:52 MCHC 30.7 g/dL (30-55) 09/03/24 07:52 RDW 14.3 % (12.1-15.1) 09/03/24 07:52 Plt Count 235 10^3/cmm (157-399) 09/03/24 07:52 MPV 10.9 fL (7.4-10.4) H 09/03/24 07:52 Neut % (Auto) 72.9 % 09/03/24 07:52 Lymph % (Auto) 15.1 % 09/03/24 07:52 [place] % (Auto) 9.3 % 09/03/24 07:52 Eos % (Auto) 1.8 % 09/03/24 07:52 Baso % (Auto) 0.5 % 09/03/24 07:52 Neut # (Auto) 7.88 10^3/uL (1.8-7.7) H 09/03/24 07:52 Lymph # (Auto) 1.6 10^3/uL (0.8-4.8) 09/03/24 07:52 [place] # (Auto) 1.0 10^3/uL (0.2-0.9) H 09/03/24 07:52 Eos # (Auto) 0.2 10^3/uL (0.0-0.8) 09/03/24 07:52 Baso # (Auto) 0.1 10^3/uL (0.0-0.1) 09/03/24 07:52 Nucleated RBC % (auto) 0 % 09/03/24 07:52 Nucleated RBCs # 0.0 /100WBC 09/03/24 07:52 Sodium 141 mmol/L (136-145) 09/03/24 07:52 Potassium 4.1 mmol/L (3.5-5.1) 09/03/24 07:52 Chloride 102 mmol/L (98-107) 09/03/24 07:52 Carbon Dioxide 30 mmol/L (22-29) H 09/03/24 07:52 Anion Gap 13.1 (5-19) 09/03/24 07:52 BUN 21 mg/dL (8-23) 09/03/24 07:52 Creatinine 0.9 mg/dL (0.7-1.2) 09/03/24 07:52 GFR Calculation Not Reportable 09/03/24 07:52 Glucose 124 mg/dL (65-115) H 09/03/24 07:52 Calculated Osmolality 296 mOsm/kg (285-295) H 09/03/24 07:52 Calcium 8.6 mg/dL (8.5-10.5) 09/03/24 07:52 Total Bilirubin 0.4 mg/dL (0.15-1.2) 09/03/24 07:52 AST 15 U/L (0-40) 09/03/24 07:52 ALT 18 U/L (0-41) 09/03/24 07:52 Alkaline Phosphatase 124 U/L (40-130) 09/03/24 07:52 Troponin T Baseline 57 ng/L (0-15) H 09/03/24 07:52 Troponin T 120 Minute 48.78 ng/L (0-15) H 09/03/24 09:56 Delta Troponin T -8.22 ABS# (0-10) L 09/03/24 09:56 Total Protein 7.0 g/dL (6.6-8.7) 09/03/24 07:52 Albumin 4.0 g/dL (3.5-5.2) 09/03/24 07:52 Globulin 3.0 g/dL (1.3-4.6) 09/03/24 07:52 Discharge Plan Discharge Patient Disposition: Home Clinical Impression: Angina at rest Condition: Stable Prescriptions: New isosorbide mononitrate 60 mg tablet extended release 24 hr 60 mg PO DAILY Qty: 30 0RF Discontinued isosorbide mononitrate 30 mg Tablet Extended Release 24 Hr 30 mg PO DAILY Qty: 30 0RF No Action acetaminophen 325 mg capsule 650 mg PO Q4H PRN (Reason: PAIN/FEVER) calcium carbonate [Tums] 200 mg calcium (500 mg) Tablet,Chewable 1,000 mg PO QID PRN (Reason: Indigestion) aspirin 81 mg Tablet,Delayed Release (Dr/Ec) 81 mg PO DAILY@08 metoprolol tartrate 25 mg Tablet 25 mg PO BID@0900,2100 Qty: 60 0RF ipratropium-albuterol 0.5 mg-3 mg(2.5 mg base)/3 mL solution for nebulization 3 ml inhalation Q6H PRN (Reason: shortness of breath or wheezing) Qty: 90 0RF atorvastatin 40 mg Tablet 40 mg PO DAILY Qty: 30 0RF clopidogrel [Plavix] 75 mg tablet 75 mg PO DAILY Qty: 30 0RF nitroglycerin 0.4 mg tablet, sublingual 0.4 mg sublingual Q5M PRN (Reason: chest pain) Qty: 20 0RF Rx Instructions: do not exceed 3 doses per episode losartan 25 mg Tablet 25 mg PO DAILY omeprazole 20 mg Capsule,Delayed Release(Dr/Ec) 20 mg PO DAILY Discharge Orders: Discharge ED (Routine); Ordered 09/03/24 Ordered By: Jesus Guzman Referrals: Dominic Adams DO [Primary Care Provider] - Discharge Diet: Usual diet Discharge Activity: Resume usual activity Patient Instructions: Opioid Safety, Pain Management Activity Restrictions/Additional Instructions: Thank you for choosing [facility] for your healthcare needs today. It is very important that you follow up as instructed or that you return to the Emergency Department should you have concerns or if your condition changes or worsens in any way. You are seen in the emergency room for an episode of chest pain. Cardiac enzymes and EKG did not show signs of acute coronary syndrome. Your previous hospitalization was reviewed and we discussed your goals of care with lining marker that was on-call today. They recommend increasing isosorbide to 60 mg daily. If you have further episodes of chest pain this can be reevaluated. Sign Out Sign Out Data: Patient Sign Out occurred on 09/03/24 at 08:48. Patient's care was discussed, and care was transferred from PABLO Fang to Jesus Guzman DO. Coding Level of Care Code ED Terrazzo Mechanic for Chg Fwd Documented by User: Jesus Guzman DO 09/03/24 10:58 HPI - Chest Pain General: Chief Complaint: Chest Pain Stated Complaint: CHEST PAIN Time Seen by Provider: 09/03/24 08:00 Related Data Home Medications Medication Instructions Recorded Confirmed acetaminophen 325 mg capsule 650 mg PO Q4H PRN PAIN/FEVER 11/27/19 09/03/24 calcium carbonate (Tums) 1,000 mg PO QID PRN Indigestion 12/08/20 09/03/24 aspirin 81 mg tablet,delayed 81 mg PO DAILY@08 01/26/21 09/03/24 release losartan 25 mg tablet 25 mg PO DAILY 08/17/24 09/03/24 omeprazole 20 mg capsule,delayed 20 mg PO DAILY 08/17/24 09/03/24 release Previous Rx's Medication Instructions Recorded metoprolol tartrate 25 mg tablet 25 mg PO BID@0900,2100 #60 tabs 08/11/23 ipratropium 0.5 mg-albuterol 3 mg 3 ml inhalation Q6H PRN shortness 01/20/24 (2.5 mg base)/3 mL nebulization of breath or wheezing #90 mL soln atorvastatin 40 mg tablet 40 mg PO DAILY #30 tabs 08/15/24 clopidogrel 75 mg tablet (Plavix) 75 mg PO DAILY #30 tabs 08/15/24 nitroglycerin 0.4 mg sublingual 0.4 mg sublingual Q5M PRN chest 08/15/24 tablet pain #20 tabs isosorbide mononitrate 60 mg 60 mg PO DAILY #30 tabs 09/03/24 tablet,extended release 24 hr Allergies Allergy/AdvReac Type Severity Reaction Status Date / Time tetanus toxoid, adsorbed Allergy Unknown unknown Verified 09/03/24 08:19 [facility] ED PFSH: Medical History COPD (chronic obstructive pulmonary disease) Fever Persistent Hypoxia Delirium due to general medical condition Cystitis SVT (supraventricular tachycardia) AMS (altered mental status) Diastolic heart failure of unknown etiology GERD (gastroesophageal reflux disease) DJD (degenerative joint disease) Urinary retention Proteus infection BPH (benign prostatic hyperplasia) History of 2019 novel coronavirus disease (COVID-19) Ventricular premature beats Major depressive disorder, single episode, 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 Hoover 2015 Family History Father Cancer Grandfather Myocardial infarction Other CAD (coronary artery disease) Social History Smoking and tobacco/nicotine status: never used tobacco/nicotine Alcohol intake: never Substance/Drug Use: never Lives independently: No Marital status: Physical Exam Neuro: CHAI COMA SCALE: document GCS findings [place] coma scale total score: 15 Course Vital Signs: Vital signs: Vital Signs Temperature 97.6 F 09/03/24 08:01 Pulse Rate 86 09/03/24 08:01 Respiratory Rate 17 09/03/24 08:01 Blood Pressure 128/89 09/03/24 08:01 Pulse Oximetry 98 09/03/24 08:01 Oxygen Delivery Me thod Room Air 09/03/24 08:01 MDM - Chest Pain Medical Decision Making The patient is pain-free at this time. Reviewed his previous hospitalization elected medical management. His troponins did not trend up he does not have any acute EKG changes patient is expressing desire to go home. I contacted Dr. Rodriguez who is on-call he concurs with increasing the isosorbide to 60 mg daily continue his other medications. If patient has further episodes of chest pain this could be reassessed. Medical Records I reviewed the patient's medical records. Lab Data I reviewed the patient's lab results. 09/03/24 07:52 09/03/24 07:52 Radiology Impressions Chest X-Ray 09/03/24 08:01 IMPRESSION: 1. No acute cardiopulmonary finding. Laboratory Results WBC 10.79 10^3/uL (3.29-11.43) 09/03/24 07:52 RBC 5.63 10^6/uL (3.85-5.65) 09/03/24 07:52 Hgb 14.60 g/dL (11.27-16.99) 09/03/24 07:52 Hct 47.6 % (37-53) 09/03/24 07:52 MCV 84.5 fl (82-101) 09/03/24 07:52 MCH 25.9 pg (27-33) L 09/03/24 07:52 MCHC 30.7 g/dL (30-55) 09/03/24 07:52 RDW 14.3 % (12.1-15.1) 09/03/24 07:52 Plt Count 235 10^3/cmm (157-399) 09/03/24 07:52 MPV 10.9 fL (7.4-10.4) H 09/03/24 07:52 Neut % (Auto) 72.9 % 09/03/24 07:52 Lymph % (Auto) 15.1 % 09/03/24 07:52 [place] % (Auto) 9.3 % 09/03/24 07:52 Eos % (Auto) 1.8 % 09/03/24 07:52 Baso % (Auto) 0.5 % 09/03/24 07:52 Neut # (Auto) 7.88 10^3/uL (1.8-7.7) H 09/03/24 07:52 Lymph # (Auto) 1.6 10^3/uL (0.8-4.8) 09/03/24 07:52 [place] # (Auto) 1.0 10^3/uL (0.2-0.9) H 09/03/24 07:52 Eos # (Auto) 0.2 10^3/uL (0.0-0.8) 09/03/24 07:52 Baso # (Auto) 0.1 10^3/uL (0.0-0.1) 09/03/24 07:52 Nucleated RBC % (auto) 0 % 09/03/24 07:52 Nucleated RBCs # 0.0 /100WBC 09/03/24 07:52 Sodium 141 mmol/L (136-145) 09/03/24 07:52 Potassium 4.1 mmol/L (3.5-5.1) 09/03/24 07:52 Chloride 102 mmol/L (98-107) 09/03/24 07:52 Carbon Dioxide 30 mmol/L (22-29) H 09/03/24 07:52 Anion Gap 13.1 (5-19) 09/03/24 07:52 BUN 21 mg/dL (8-23) 09/03/24 07:52 Creatinine 0.9 mg/dL (0.7-1.2) 09/03/24 07:52 GFR Calculation Not Reportable 09/03/24 07:52 Glucose 124 mg/dL (65-115) H 09/03/24 07:52 Calculated Osmolality 296 mOsm/kg (285-295) H 09/03/24 07:52 Calcium 8.6 mg/dL (8.5-10.5) 09/03/24 07:52 Total Bilirubin 0.4 mg/dL (0.15-1.2) 09/03/24 07:52 AST 15 U/L (0-40) 09/03/24 07:52 ALT 18 U/L (0-41) 09/03/24 07:52 Alkaline Phosphatase 124 U/L (40-130) 09/03/24 07:52 Troponin T Baseline 57 ng/L (0-15) H 09/03/24 07:52 Troponin T 120 Minute 48.78 ng/L (0-15) H 09/03/24 09:56 Delta Troponin T -8.22 ABS# (0-10) L 09/03/24 09:56 Total Protein 7.0 g/dL (6.6-8.7) 09/03/24 07:52 Albumin 4.0 g/dL (3.5-5.2) 09/03/24 07:52 Globulin 3.0 g/dL (1.3-4.6) 09/03/24 07:52 All radiology interpretation(s) finalized by discharge Discharge Plan Discharge Patient Disposition: Home Clinical Impression: Angina at rest Condition: Stable Prescriptions: New isosorbide mononitrate 60 mg tablet extended release 24 hr 60 mg PO DAILY Qty: 30 0RF Discontinued isosorbide mononitrate 30 mg Tablet Extended Release 24 Hr 30 mg PO DAILY Qty: 30 0RF No Action acetaminophen 325 mg capsule 650 mg PO Q4H PRN (Reason: PAIN/FEVER) calcium carbonate [Tums] 200 mg calcium (500 mg) Tablet,Chewable 1,000 mg PO QID PRN (Reason: Indigestion) aspirin 81 mg Tablet,Delayed Release (Dr/Ec) 81 mg PO DAILY@08 metoprolol tartrate 25 mg Tablet 25 mg PO BID@0900,2100 Qty: 60 0RF ipratropium-albuterol 0.5 mg-3 mg(2.5 mg base)/3 mL solution for nebulization 3 ml inhalation Q6H PRN (Reason: shortness of breath or wheezing) Qty: 90 0RF atorvastatin 40 mg Tablet 40 mg PO DAILY Qty: 30 0RF clopidogrel [Plavix] 75 mg tablet 75 mg PO DAILY Qty: 30 0RF nitroglycerin 0.4 mg tablet, sublingual 0.4 mg sublingual Q5M PRN (Reason: chest pain) Qty: 20 0RF Rx Instructions: do not exceed 3 doses per episode losartan 25 mg Tablet 25 mg PO DAILY omeprazole 20 mg Capsule,Delayed Release(Dr/Ec) 20 mg PO DAILY Discharge Orders: Discharge ED (Routine); Ordered 09/03/24 Ordered By: Jesus Guzman Referrals: Dominic Adams DO [Primary Care Provider] - Discharge Diet: Usual diet Discharge Activity: Resume usual activity Patient Instructions: Opioid Safety, Pain Management Activity Restrictions/Additional Instructions: Thank you for choosing [facility] for your healthcare needs today. It is very important that you follow up as instructed or that you return to the Emergency Department should you have concerns or if your condition changes or worsens in any way. You are seen in the emergency room for an episode of chest pain. Cardiac enzymes and EKG did not show signs of acute coronary syndrome. Your previous hospitalization was reviewed and we discussed your goals of care with lining marker that was on-call today. They recommend increasing isosorbide to 60 mg daily. If you have further episodes of chest pain this can be reevaluated. Sign Out Sign Out Data: Patient Sign Out occurred on 09/03/24 at 08:48. Patient's care was discussed, and care was transferred from PABLO Fang to Jesus Guzman DO. Coding Level of Care Code ED Terrazzo Mechanic for Rachelle Buckner
[2024-09-03 08:15] LABS: Basophils # 0.1 10^3/uL (0.0-0.1); Basophils % 0.5 %; Eosinophils # 0.2 10^3/uL (0.0-0.8); Eosinophils % 1.8 %; Hematocrit 47.6 % (37-53); Lymphocytes # 1.6 10^3/uL (0.8-4.8); Lymphocytes % 15.1 %; Mean Corpuscular HGB Conc 30.7 g/dL (30-55); Mean Corpuscular Hemoglobin 25.9 pg (27-33); Mean Corpuscular Volume 84.5 fl (82-101); Mean Platelet Volume 10.9 fL (7.4-10.4); Monocytes % 9.3 %; Neutrophils # 7.88 10^3/uL (1.8-7.7); Neutrophils % 72.9 %; Nucleated Red Blood Cells % 0 %; Platelet Count 235 10^3/cmm (157-399); Red Blood Count 5.63 10^6/uL (3.85-5.65); Red Cell Distribution Width 14.3 % (12.1-15.1); White Blood Count 10.79 10^3/uL (3.29-11.43)
--- NOTE | 2024-09-03 08:24 | PC.PHAR ---
patient was discharged on 08/17 and he is from [facility], copied med list off of that
[2024-09-03 08:41] LABS: Alanine Aminotransferase 18 U/L (0-41); Alkaline Phosphatase 124 U/L (40-130); Anion Gap 13.1 (5-19); Aspartate Amino Transferase 15 U/L (0-40); Blood Urea Nitrogen 21 mg/dL (8-23); Calcium 8.6 mg/dL (8.5-10.5); Carbon Dioxide 30 mmol/L (22-29); Chloride 102 mmol/L (98-107); Creatinine Clr Calc Pharmacy 61.1934; Glucose 124 mg/dL (65-115); Osmolality Calculated 296 mOsm/kg (285-295); Potassium 4.1 mmol/L (3.5-5.1); Sodium 141 mmol/L (136-145); Total Bilirubin 0.4 mg/dL (0.15-1.2); Troponin(5th) Baseline 57 ng/L (0-15)
[2024-09-03 10:31] LABS: Troponin 5 2HR 48.78 ng/L (0-15)
[2024-09-03 10:38] LABS: Troponin 5 2HR Delta -8.22 ABS# (0-10)
--- NOTE | 2024-09-03 11:02 | ECG_ITS ---
[facility] Date: 2024-09-03 Pat Name: Ben Ochoa Department: Room: Gender: Male Chief Wellness Officer: : 1945 Requested By: Jazmin Phan Order Number: [id number] Brennon MD: RASHIDA BARRIGA Measurements Intervals [place] Rate: 58 P: 57 CA: 172 QRS: 57 QRSD: 100 T: 46 QT: 402 QTc: 398 Interpretive Statements SINUS BRADYCARDIA Compared to ECG 09/03/2024 08:09:02 Sinus rhythm no longer present Myocardial infarct finding no longer present Electronically Signed On 09-03-2024 18:08:56 [employer] by RASHIDA BARRIGA [email or web address]
== END 2024-09-03 14:30 | disposition home or self-care (01) ==
PROVIDERS: Physician Assistant; Emergency Provider Family Medicine; PCP Internal Medicine
DX: I20.9 Angina pectoris, unspecified (principal); J44.9 Chronic obstructive pulmonary disease, unspecified; I50.30 Unspecified diastolic (congestive) heart failure; Z79.82 Long term (current) use of aspirin; Z79.02 Long term (current) use of antithrombotics/antiplatelets
CPT/HCPCS: 36415; 71045; 80053; 84484; 85025; 93005; 99285

== ENCOUNTER 2024-10-24 01:01 | Emergency (ER) | payer MEDICAID, SELFPAY ==
[2024-10-24] VITALS (12 sets, daily range): BP systolic 128–149; BP diastolic 66–95; PULSE 96–116; RESP 19–26; TEMP 36.6; O2SAT 93–97; BMI 20.7
--- NOTE | 2024-10-24 01:06 | XRR_ITS ---
PROCEDURE INFORMATION: Exam: XR Chest Exam date and time: 10/24/2024 1:18 AM Age: 78 years old Clinical indication: Pain; Chest pressure; Patient HX: Copd; Additional info: Chest pain TECHNIQUE: Imaging protocol: Radiologic exam of the chest. Views: 1 view. COMPARISON: CR XR chest 1V portable [id number] 09/03/2024 8:09 AM FINDINGS: Lungs: Biapical parenchymal scarring present. The lungs are free of consolidation. Chronic interstitial lung changes present. Minimal bibasilar discoid atelectasis. Pleural spaces: Unremarkable. Trace left pleural effusion. No pneumothorax. Heart/Mediastinum: Unremarkable. No cardiomegaly. Bones/joints: Unremarkable. XR/XR chest 1V portable [id number] IMPRESSION: Minimal bibasilar discoid atelectasis. Trace left pleural effusion.
--- NOTE | 2024-10-24 01:06 | W.ED.CHESTPA ---
HPI - Chest Pain General: Chief Complaint: Chest Pain Stated Complaint: Chest Pain Time Seen by Provider: 10/24/24 01:03 History of Present Illness: 78-year-old male with history of COPD, diastolic heart failure, GERD, BPH, coronary artery disease who presents to the emergency room with chest pain from the long term by ambulance. This started a couple hours ago. He is complaining of upper left chest pain into his back. He has some cough. No fevers. No altered mental status. No nausea or vomiting Related Data Home Medications Medication Instructions Recorded Confirmed acetaminophen 325 mg capsule 650 mg PO Q4H PRN PAIN/FEVER 11/27/19 09/03/24 calcium carbonate (Tums) 1,000 mg PO QID PRN Indigestion 12/08/20 09/03/24 aspirin 81 mg tablet,delayed 81 mg PO DAILY@08 01/26/21 09/03/24 release losartan 25 mg tablet 25 mg PO DAILY 08/17/24 09/03/24 omeprazole 20 mg capsule,delayed 20 mg PO DAILY 08/17/24 09/03/24 release Previous Rx's Medication Instructions Recorded metoprolol tartrate 25 mg tablet 25 mg PO BID@0900,2100 #60 tabs 08/11/23 ipratropium 0.5 mg-albuterol 3 mg 3 ml inhalation Q6H PRN shortness 01/20/24 (2.5 mg base)/3 mL nebulization of breath or wheezing #90 mL soln atorvastatin 40 mg tablet 40 mg PO DAILY #30 tabs 08/15/24 clopidogrel 75 mg tablet (Plavix) 75 mg PO DAILY #30 tabs 08/15/24 nitroglycerin 0.4 mg sublingual 0.4 mg sublingual Q5M PRN chest 08/15/24 tablet pain #20 tabs isosorbide mononitrate 60 mg 60 mg PO DAILY #30 tabs 09/03/24 tablet,extended release 24 hr Allergies Allergy/AdvReac Type Severity Reaction Status Date / Time tetanus toxoid, adsorbed Allergy Unknown unknown Verified 09/03/24 08:19 Review of Systems Narrative: Constitutional symptoms: Negative except as documented in HPI. Skin symptoms: Negative except as documented in HPI. Eye symptoms: Negative except as documented in HPI. ENMT symptoms: Negative except as documented in HPI. Respiratory symptoms: Negative except as documented in HPI. Cardiovascular symptoms: Negative except as documented in HPI. Gastrointestinal symptoms: Negative except as documented in HPI. Genitourinary symptoms: Negative except as documented in HPI. Musculoskeletal symptoms: Negative except as documented in HPI. Neurologic symptoms: Negative except as documented in HPI. Psychiatric symptoms: Negative except as documented in HPI. Endocrine symptoms: Negative except as documented in HPI. 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 Hoover 2015 Family History Father Cancer Grandfather Myocardial infarction Other CAD (coronary artery disease) Social History Smoking and tobacco/nicotine status: never used tobacco/nicotine Alcohol intake: never Substance/Drug Use: never Lives independently: No Marital status: Physical Exam Narrative: EXAM NARRATIVE: General: Alert, no acute distress. Skin: Warm, dry. Head: Normocephalic, atraumatic. Neck: Supple, trachea midline. Eye: Extraocular movements are intact. Ears, nose, mouth and throat: mucosa moist. Cardiovascular: Regular, Normal peripheral perfusion. Respiratory: Lungs are clear to auscultation, respirations are non-labored, breath sounds are equal, Symmetrical chest wall expansion. Gastrointestinal: Soft, Nontender, Non distended Musculoskeletal: Normal ROM, no deformity. Neurological: Alert and oriented, No focal neurological deficit observed. Psychiatric: Cooperative, appropriate mood & affect. Course Vital Signs: Vital signs: Vital Signs Temperature 98 F 10/24/24 01:02 Pulse Rate 96 10/24/24 02:15 Respiratory Rate 24 H 10/24/24 02:13 Blood Pressure 136/81 10/24/24 02:15 Pulse Oximetry 96 10/24/24 02:15 MDM - Chest Pain Medical Decision Making Differential diagnosis for patient with chest pain includes but is not limited to and based on the above HPI, review of systems and physical exam: Pneumonia. unstable angina. angina. Acute coronary syndrome / NE. Pulmonary embolism. Costochondritis / musculoskeletal. Pleurisy. Pericarditis. Esophageal spasm. Pancreatis. Cholecystitis. Orders placed to evaluate differential diagnosis based on the above differential, HPI and physical exam EKG: Time 1:09 AM. Rate 116. PVCs. Sinus tachycardia, No ST-T changes, normal [place] & QRS intervals, This was reviewed and interpreted by myself the ER physician at 1:12 AM Chest x-ray: Mild atelectasis. Small pleural effusion. No acute process. No infiltrate. No pneumothorax. This was reviewed and interpreted by myself the emergency room physician. I also reviewed the radiology report. Lab Review: Laboratory results were reviewed and interpreted by myself the emergency room physician. Lab work is unremarkable. Mild leukocytosis. No anemia. No renal failure. Serial troponins are stable and at his baseline. I reviewed the patient's medical record. Reexamination: Patient remained stable. No increased work of breathing. No altered mental status. No focal motor deficits. Assessment and plan: Noncardiac chest pain - Discharged home - Discussed plan with patient. Answered any questions. - Evaluation and treatment of this problem were appropriate in the emergency setting. Lab Data 10/24/24 01:03 10/24/24 01:03 Radiology Impressions Chest X-Ray 10/24/24 01:06 IMPRESSION: Minimal bibasilar discoid atelectasis. Trace left pleural effusion. Laboratory Results WBC 12.90 10^3/uL (3.29-11.43) H 10/24/24 01:03 RBC 5.09 10^6/uL (3.85-5.65) 10/24/24 01:03 Hgb 13.30 g/dL (11.27-16.99) 10/24/24 01:03 Hct 42.7 % (37-53) 10/24/24 01:03 MCV 83.9 fl (82-101) 10/24/24 01:03 MCH 26.1 pg (27-33) L 10/24/24 01:03 MCHC 31.1 g/dL (30-55) 10/24/24 01:03 RDW 13.2 % (12.1-15.1) 10/24/24 01:03 Plt Count 193 10^3/cmm (157-399) 10/24/24 01:03 MPV 10.7 fL (7.4-10.4) H 10/24/24 01:03 Neut % (Auto) 82.2 % 10/24/24 01:03 Lymph % (Auto) 9.1 % 10/24/24 01:03 [place] % (Auto) 7.0 % 10/24/24 01:03 Eos % (Auto) 1.2 % 10/24/24 01:03 Baso % (Auto) 0.3 % 10/24/24 01:03 Neut # (Auto) 10.60 10^3/uL (1.8-7.7) H 10/24/24 01:03 Lymph # (Auto) 1.2 10^3/uL (0.8-4.8) 10/24/24 01:03 [place] # (Auto) 0.9 10^3/uL (0.2-0.9) 10/24/24 01:03 Eos # (Auto) 0.2 10^3/uL (0.0-0.8) 10/24/24 01:03 Baso # (Auto) 0.0 10^3/uL (0.0-0.1) 10/24/24 01:03 Nucleated RBC % (auto) 0 % 10/24/24 01:03 Nucleated RBCs # 0.0 /100WBC 10/24/24 01:03 Sodium 140 mmol/L (136-145) 10/24/24 01:03 Potassium 4.3 mmol/L (3.5-5.1) 10/24/24 01:03 Chloride 102 mmol/L (98-107) 10/24/24 01:03 Carbon Dioxide 28 mmol/L (22-29) 10/24/24 01:03 Anion Gap 14.3 (5-19) 10/24/24 01:03 BUN 21 mg/dL (8-23) 10/24/24 01:03 Creatinine 0.9 mg/dL (0.7-1.2) 10/24/24 01:03 GFR Calculation Not Reportable 10/24/24 01:03 Glucose 107 mg/dL (65-115) 10/24/24 01:03 Calculated Osmolality 293 mOsm/kg (285-295) 10/24/24 01:03 Calcium 9.6 mg/dL (8.5-10.5) 10/24/24 01:03 Total Bilirubin 0.4 mg/dL (0.15-1.2) 10/24/24 01:03 AST 17 U/L (0-40) 10/24/24 01:03 ALT 15 U/L (0-41) 10/24/24 01:03 Alkaline Phosphatase 135 U/L (40-130) H 10/24/24 01:03 Troponin T Baseline 37 ng/L (0-15) H 10/24/24 01:03 Troponin T 120 Minute 37.01 ng/L (0-15) H 10/24/24 02:47 Delta Troponin T 0.01 ABS# (0-10) 10/24/24 02:47 NT-Pro-B Natriuret Pep 357 pg/mL (0-450) 10/24/24 01:03 Total Protein 7.4 g/dL (6.6-8.7) 10/24/24 01:03 Albumin 4.2 g/dL (3.5-5.2) 10/24/24 01:03 Globulin 3.2 g/dL (1.3-4.6) 10/24/24 01:03 All radiology interpretation(s) finalized by discharge Discharge Plan Discharge Patient Disposition: Home Clinical Impression: Non-cardiac chest pain Condition: Stable Prescriptions: No Action acetaminophen 325 mg capsule 650 mg PO Q4H PRN (Reason: PAIN/FEVER) calcium carbonate [Tums] 200 mg calcium (500 mg) Tablet,Chewable 1,000 mg PO QID PRN (Reason: Indigestion) aspirin 81 mg Tablet,Delayed Release (Dr/Ec) 81 mg PO DAILY@08 metoprolol tartrate 25 mg Tablet 25 mg PO BID@0900,2100 Qty: 60 0RF ipratropium-albuterol 0.5 mg-3 mg(2.5 mg base)/3 mL solution for nebulization 3 ml inhalation Q6H PRN (Reason: shortness of breath or wheezing) Qty: 90 0RF atorvastatin 40 mg Tablet 40 mg PO DAILY Qty: 30 0RF clopidogrel [Plavix] 75 mg tablet 75 mg PO DAILY Qty: 30 0RF nitroglycerin 0.4 mg tablet, sublingual 0.4 mg sublingual Q5M PRN (Reason: chest pain) Qty: 20 0RF Rx Instructions: do not exceed 3 doses per episode losartan 25 mg Tablet 25 mg PO DAILY omeprazole 20 mg Capsule,Delayed Release(Dr/Ec) 20 mg PO DAILY isosorbide mononitrate 60 mg tablet extended release 24 hr 60 mg PO DAILY Qty: 30 0RF Discharge Orders: Discharge ED (Routine); Ordered 10/24/24 Ordered By: Christi Espana Referrals: Dominic Adams DO [Primary Care Provider] - Discharge Diet: Usual diet Discharge Activity: Increase activity as tolerated Patient Instructions: Noncardiac Chest Pain (ED), Opioid Safety, Pain Management Activity Restrictions/Additional Instructions: Thank you for choosing [facility] for your healthcare needs today. Please realize this is an emergency room and that we are providing you with a medical screening exam and this may not be complete and all inclusive of all the testing and or work up that you may need to determine your ailment or severity of your illness. You have been screened and evaluated and felt safe for discharge. Health conditions do change or evolve sometimes and as such it is important that you follow up with your Primary Doctor to be re checked, 3-5 days is a general good time frame for follow up. You are always welcome to return to the ED for re assessment if your symptoms are worsening or you have new concerns Coding Level of Care Code ED Postdoctoral Research Fellow for Rachelle Buckner
--- NOTE | 2024-10-24 01:09 | ECG_ITS ---
[facility] Test Date: 2024-10-24 Pat Name: Ben Ochoa Department: Room: Gender: Male Research Spec: : 1945 Requested By: Christi Pittman Order Number: [id number] Willett MD: Dedrick Gaona M.D. Measurements Intervals [place] Rate: 116 P: 59 PA: 155 QRS: 56 QRSD: 98 T: 62 QT: 325 QTc: 453 Interpretive Statements SINUS TACHYCARDIA WITH OCCASIONAL VENTRICULAR PREMATURE COMPLEXES MODERATE ST DEPRESSION [0.05+ mV ST DEPRESSION] Compared to ECG 09/03/2024 11:02:58 Ventricular premature complex(es) now present ST (T wave) deviation now present Sinus bradycardia no longer present Electronically Signed On 10-24-2024 16:55:29 JUNIOR SYSTEMS ANALYST by Dedrick Gaona M.D. [email or web address]
[2024-10-24 01:12] LABS: Basophils % 0.3 %; Eosinophils # 0.2 10^3/uL (0.0-0.8); Eosinophils % 1.2 %; Hematocrit 42.7 % (37-53); Lymphocytes # 1.2 10^3/uL (0.8-4.8); Lymphocytes % 9.1 %; Mean Corpuscular HGB Conc 31.1 g/dL (30-55); Mean Corpuscular Hemoglobin 26.1 pg (27-33); Mean Corpuscular Volume 83.9 fl (82-101); Mean Platelet Volume 10.7 fL (7.4-10.4); Monocytes # 0.9 10^3/uL (0.2-0.9); Neutrophils % 82.2 %; Nucleated Red Blood Cells % 0 %; Platelet Count 193 10^3/cmm (157-399); Red Blood Count 5.09 10^6/uL (3.85-5.65); Red Cell Distribution Width 13.2 % (12.1-15.1)
[2024-10-24 01:30] LABS: Troponin(5th) Baseline 37 ng/L (0-15)
[2024-10-24 01:39] LABS: Alanine Aminotransferase 15 U/L (0-41); Albumin Level 4.2 g/dL (3.5-5.2); Aspartate Amino Transferase 17 U/L (0-40); Blood Urea Nitrogen 21 mg/dL (8-23); Calcium 9.6 mg/dL (8.5-10.5); Carbon Dioxide 28 mmol/L (22-29); Creatinine Clr Calc Pharmacy 79.3412; Globulin 3.2 g/dL (1.3-4.6); Glucose 107 mg/dL (65-115); Total Bilirubin 0.4 mg/dL (0.15-1.2); Total Protein 7.4 g/dL (6.6-8.7)
[2024-10-24 01:42] LABS: Alkaline Phosphatase 135 U/L (40-130)
[2024-10-24 01:47] LABS: NT Pro B Type Natriuretic Pept 357 pg/mL (0-450)
[2024-10-24 01:49] LABS: Anion Gap 14.3 (5-19); Chloride 102 mmol/L (98-107); Osmolality Calculated 293 mOsm/kg (285-295); Potassium 4.3 mmol/L (3.5-5.1); Sodium 140 mmol/L (136-145)
--- NOTE | 2024-10-24 03:06 | ECG_ITS ---
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 Measurements Intervals [place] Rate: 116 P: 59 MA: 155 QRS: 56 QRSD: 98 T: 62 QT: 325 QTc: 453 Interpretive Statements SINUS TACHYCARDIA WITH OCCASIONAL VENTRICULAR PREMATURE COMPLEXES/ MODERATE ST DEPRESSION [0.05+ mV ST DEPRESSION] Compared to ECG 09/03/2024 11:02:58 Ventricular premature complex(es) now present ST (T wave) deviation now present Sinus bradycardia no longer present Electronically Signed On 10-24-2024 17:03:08 SERVICE PROMOTER SALESPERSON by Dedrick Gaona M.D. [id number] bridget
[2024-10-24 03:12] LABS: Troponin 5 2HR 37.01 ng/L (0-15); Troponin 5 2HR Delta 0.01 ABS# (0-10)
--- NOTE | 2024-10-24 05:55 | PC.NURSE ---
Report called to [facility] - I spoke with SIMON Wilson.
== END 2024-10-24 06:42 | disposition home or self-care (01) ==
PROVIDERS: Emergency Provider Emergency Medicine; PCP Internal Medicine
DX: R07.89 Other chest pain (principal); Z79.82 Long term (current) use of aspirin; J44.9 Chronic obstructive pulmonary disease, unspecified; I50.30 Unspecified diastolic (congestive) heart failure
CPT/HCPCS: 71045; 80053; 83880; 84484; 85025; 93005; 99285

== ENCOUNTER 2024-10-24 12:50 | Inpatient (IN) | payer MEDICAID, SELFPAY ==
[2024-10-24] VITALS (7 sets, daily range): BP systolic 104–123; BP diastolic 54–73; PULSE 75–108; RESP 16–27; TEMP 36.4–37.7; O2SAT 91–96; BMI 19.1; BMI 22.5
--- NOTE | 2024-10-24 12:54 | ECG_ITS ---
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 Measurements Intervals [place] Rate: 103 P: 69 MO: 178 QRS: 65 QRSD: 90 T: 3 QT: 324 QTc: 425 Interpretive Statements SINUS TACHYCARDIA, ventricular couplet, aberrantly conducted beats MODERATE ST DEPRESSION [0.05+ mV ST DEPRESSION] Compared to ECG 10/24/2024 01:09:35 Ventricular premature complex(es) no longer present ST (T wave) deviation still present Electronically Signed On 10-24-2024 16:56:51 DUMPSTER DRIVER by Dedrick Gaona M.D. [email or web address]
--- NOTE | 2024-10-24 12:56 | XR_ITS ---
WS: [id number] PORTABLE CHEST HISTORY: dyspnea/cough COMPARISON: Study earlier the same day. Hyperexpanded lungs. Minimal interstitial thickening at the LEFT lung base is probably atelectasis or interstitial lung disease. No dense areas of consolidation. Moderate biapical pleural thickening and scarring. No pleural effusion or pneumothorax. Cardiac size: Normal. Mediastinum/Aorta: Mild atherosclerosis aorta. Osteopenia. XR/XR chest 1V portable [id number] IMPRESSION: 1. Pulmonary hyperexpansion. 2. LEFT basilar atelectasis versus interstitial fibrosis. 3. Biapical pleural thickening, chronic.
[2024-10-24 13:19] LABS: Basophils # 0.1 10^3/uL (0.0-0.1); Basophils % 0.4 %; Eosinophils % 0.2 %; Hematocrit 43.6 % (37-53); Lymphocytes # 1.1 10^3/uL (0.8-4.8); Lymphocytes % 5.2 %; Mean Corpuscular HGB Conc 30.5 g/dL (30-55); Mean Corpuscular Hemoglobin 26.1 pg (27-33); Mean Corpuscular Volume 85.7 fl (82-101); Monocytes # 1.3 10^3/uL (0.2-0.9); Monocytes % 6.4 %; Neutrophils # 17.87 10^3/uL (1.8-7.7); Neutrophils % 87.4 %; Nucleated Red Blood Cells % 0 %; Platelet Count 239 10^3/cmm (157-399); Red Blood Count 5.09 10^6/uL (3.85-5.65); Red Cell Distribution Width 13.2 % (12.1-15.1); White Blood Count 20.45 10^3/uL (3.29-11.43)
[2024-10-24 13:39] LABS: Troponin(5th) Baseline 47 ng/L (0-15)
[2024-10-24 13:42] LABS: Alanine Aminotransferase 14 U/L (0-41); Albumin Level 4.2 g/dL (3.5-5.2); Alkaline Phosphatase 135 U/L (40-130); Anion Gap 20.7 (5-19); Aspartate Amino Transferase 16 U/L (0-40); Blood Urea Nitrogen 23 mg/dL (8-23); Calcium 9.9 mg/dL (8.5-10.5); Carbon Dioxide 24 mmol/L (22-29); Chloride 101 mmol/L (98-107); Creatinine Clr Calc Pharmacy 50.0673; Globulin 3.3 g/dL (1.3-4.6); Glucose 134 mg/dL (65-115); Osmolality Calculated 298 mOsm/kg (285-295); Potassium 4.7 mmol/L (3.5-5.1); Sodium 141 mmol/L (136-145); Total Bilirubin 0.8 mg/dL (0.15-1.2); Total Protein 7.5 g/dL (6.6-8.7)
[2024-10-24 14:03] LABS: Creatine Phosphokinase 31 U/L (39-308); Lipase 28 U/L (13-60)
--- NOTE | 2024-10-24 14:06 | ED_ITS ---
HPI - Chest Pain 2 General: Chief Complaint: Chest Pain Stated Complaint: chest pain Time Seen by Provider: 10/24/24 12:56 History of Present Illness: 78-[facility]. He was here earlier today for report of chest pain and had serial troponins and EKGs with no significant finding. Patient is mildly tachycardic on arrival. However there is some questions. He has some mild discomfort. Associated symptoms: Deny abdominal pain, dyspnea or fever(s) Related Data Home Medications Medication Instructions Recorded Confirmed acetaminophen 325 mg capsule 650 mg PO Q4H PRN PAIN/FEVER 11/27/19 10/24/24 calcium carbonate (Tums) 1,000 mg PO QID PRN Indigestion 12/08/20 10/24/24 aspirin 81 mg tablet,delayed 81 mg PO DAILY@08 01/26/21 10/24/24 release losartan 25 mg tablet 25 mg PO DAILY 08/17/24 10/24/24 omeprazole 20 mg capsule,delayed 20 mg PO DAILY 08/17/24 10/24/24 release bisacodyl 10 mg rectal suppository 10 mg AR DAILY PRN Constipation 10/24/24 10/24/24 (Dulcolax (bisacodyl)) bisacodyl 5 mg tablet,delayed 10 mg PO DAILY PRN Constipation 10/24/24 10/24/24 release magnesium hydroxide 400 mg/5 mL 30 ml PO Q3D PRN Constipation 10/24/24 10/24/24 oral suspension (Milk of Magnesia) Previous Rx's Medication Instructions Recorded metoprolol tartrate 25 mg tablet 25 mg PO BID@0900,2100 #60 tabs 08/11/23 ipratropium 0.5 mg-albuterol 3 mg 3 ml inhalation Q6H PRN shortness 01/20/24 (2.5 mg base)/3 mL nebulization of breath or wheezing #90 mL soln atorvastatin 40 mg tablet 40 mg PO DAILY #30 tabs 08/15/24 clopidogrel 75 mg tablet (Plavix) 75 mg PO DAILY #30 tabs 08/15/24 nitroglycerin 0.4 mg sublingual 0.4 mg sublingual Q5M PRN chest 08/15/24 tablet pain #20 tabs isosorbide mononitrate 60 mg 60 mg PO DAILY #30 tabs 09/03/24 tablet,extended release 24 hr Allergies Allergy/AdvReac Type Severity Reaction Status Date / Time tetanus toxoid, adsorbed Allergy Unknown unknown Verified 09/03/24 08:19 Review of Systems 2 Const: Denies: fever(s) or chills Card: Reports: chest pain Resp: Denies: dyspnea GI: Denies: abdominal pain : Denies: dysuria, urinary frequency or urinary urgency Musc: Denies: neck pain or back pain Skin/Breast: Denies: rash PFSH ED 2 PFSH: Medical History COPD (chronic obstructive pulmonary disease) Fever Persistent Hypoxia Delirium due to general medical condition Cystitis SVT (supraventricular tachycardia) AMS (altered mental status) Diastolic heart failure of unknown etiology GERD (gastroesophageal reflux disease) DJD (degenerative joint disease) Urinary retention Proteus infection BPH (benign prostatic hyperplasia) History of 2019 novel coronavirus disease (COVID-19) Ventricular premature beats Major depressive disorder, single episode, 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 Hoover 2015 Family History Father Cancer Grandfather Myocardial infarction Other CAD (coronary artery disease) Social History Smoking and tobacco/nicotine status: never used tobacco/nicotine Alcohol intake: never Substance/Drug Use: never Lives independently: No Marital status: Physical Exam 2 Const: GENERAL APPEARANCE: cooperative ORIENTATION/CONSCIOUSNESS: Yes awake HENMT: COMMON NORMALS: normocephalic and atraumatic HEAD & SCALP: n ormocephalic and atraumatic Resp: COMMON NORMALS: normal respiratory effort, No retractions, No use of accessory muscles and clear to auscultation bilaterally AUSCULTATION: clear to auscultation bilaterally Cardio: COMMON NORMALS: regular rate, regular rhythm and No murmurs present (Cardio) RATE: regular rate RHYTHM: regular rhythm GI: COMMON NORMALS: Soft to palpation and No hepatosplenomegaly present A USCULTATION: Yes normoactive bowel sounds PALPATION: Yes Soft to palpation, No Tenderness to palpation present (GI), No Guarding due to palpation present (GI) and Yes No hepatosplenomegaly present Extremity: COMMON NORMALS: normal to inspection, capillary refill normal, no clubbing, cyanosis or edema, no calf tenderness and no pedal edema Skin: COMMON NORMALS: no rashes or lesions noted GENERAL SKIN EXAM: no rashes or lesions noted Course 2 Vital Signs: Vital signs: Vital Signs Temperature 97.6 F 10/24/24 12:51 Pulse Rate 98 10/24/24 14:18 Respiratory Rate 27 H 10/24/24 14:18 Blood Pressure 116/61 10/24/24 14:18 Pulse Oximetry 91 10/24/24 12:51 Oxygen Delivery Me thod Room Air 10/24/24 14:18 MDM - Chest Pain Medical Decision Making Sepsis with a white count of 20,000 positive lactate. No hypotension. Patient is mildly tachypneic but is D-dimer is negative chest x-ray did not show anything acute. Creatinine normal CT renal protocol is still pending. Urine shows significant leukocytosis. Previous urine that showed resistant to rosalba Goodrich but sensitive to everything else started on Zosyn discussed with Dr. Coulter orders written Medical Records I reviewed the patient's medical records. Lab Data I reviewed the patient's lab results. 10/24/24 12:39 10/24/24 12:39 Radiology Impressions Chest X-Ray 10/24/24 12:56 IMPRESSION: 1. Pulmonary hyperexpansion. 2. LEFT basilar atelectasis versus interstitial fibrosis. 3. Biapical pleural thickening, chronic. Laboratory Results WBC 20.45 10^3/uL (3.29-11.43) H 10/24/24 12:39 RBC 5.09 10^6/uL (3.85-5.65) 10/24/24 12:39 Hgb 13.30 g/dL (11.27-16.99) 10/24/24 12:39 Hct 43.6 % (37-53) 10/24/24 12:39 MCV 85.7 fl (82-101) 10/24/24 12:39 MCH 26.1 pg (27-33) L 10/24/24 12:39 MCHC 30.5 g/dL (30-55) 10/24/24 12:39 RDW 13.2 % (12.1-15.1) 10/24/24 12:39 Plt Count 239 10^3/cmm (157-399) 10/24/24 12:39 MPV 11.0 fL (7.4-10.4) H 10/24/24 12:39 Neut % (Auto) 87.4 % 10/24/24 12:39 Lymph % (Auto) 5.2 % 10/24/24 12:39 [place] % (Auto) 6.4 % 10/24/24 12:39 Eos % (Auto) 0.2 % 10/24/24 12:39 Baso % (Auto) 0.4 % 10/24/24 12:39 Neut # (Auto) 17.87 10^3/uL (1.8-7.7) H 10/24/24 12:39 Lymph # (Auto) 1.1 10^3/uL (0.8-4.8) 10/24/24 12:39 [place] # (Auto) 1.3 10^3/uL (0.2-0.9) H 10/24/24 12:39 Eos # (Auto) 0.0 10^3/uL (0.0-0.8) 10/24/24 12:39 Baso # (Auto) 0.1 10^3/uL (0.0-0.1) 10/24/24 12:39 Nucleated RBC % (auto) 0 % 10/24/24 12:39 Nucleated RBCs # 0.0 /100WBC 10/24/24 12:39 D-Dimer 0.43 ug/mLFEU (0-0.59) 10/24/24 13:21 Sodium 141 mmol/L (136-145) 10/24/24 12:39 Potassium 4.7 mmol/L (3.5-5.1) 10/24/24 12:39 Chloride 101 mmol/L (98-107) 10/24/24 12:39 Carbon Dioxide 24 mmol/L (22-29) 10/24/24 12:39 Anion Gap 20.7 (5-19) H 10/24/24 12:39 BUN 23 mg/dL (8-23) 10/24/24 12:39 Creatinine 1.1 mg/dL (0.7-1.2) 10/24/24 12:39 GFR Calculation Not Reportable 10/24/24 12:39 Glucose 134 mg/dL (65-115) H 10/24/24 12:39 Calculated Osmolality 298 mOsm/kg (285-295) H 10/24/24 12:39 Lactic Acid 6.2 mmol/L (0.5-2.2) H* 10/24/24 12:39 Calcium 9.9 mg/dL (8.5-10.5) 10/24/24 12:39 Total Bilirubin 0.8 mg/dL (0.15-1.2) 10/24/24 12:39 AST 16 U/L (0-40) 10/24/24 12:39 ALT 14 U/L (0-41) 10/24/24 12:39 Alkaline Phosphatase 135 U/L (40-130) H 10/24/24 12:39 Creatine Kinase 31 U/L (39-308) L 10/24/24 12:39 Troponin T Baseline 47 ng/L (0-15) H 10/24/24 12:39 Total Protein 7.5 g/dL (6.6-8.7) 10/24/24 12:39 Albumin 4.2 g/dL (3.5-5.2) 10/24/24 12:39 Globulin 3.3 g/dL (1.3-4.6) 10/24/24 12:39 Lipase 28 U/L (13-60) 10/24/24 12:39 Urine Color Dark yellow (Yellow) A 10/24/24 14:13 Urine Appearance Turbid (CLEAR) A 10/24/24 14:13 Urine pH 8.0 (5-7) A 10/24/24 14:13 Ur Specific [place] 1.025 (1.005-1.030) 10/24/24 14:13 Urine Protein 2+ (Negative) A 10/24/24 14:13 Urine Glucose (UA) Negative (Normal) 10/24/24 14:13 Urine Ketones Trace (Negative) 10/24/24 14:13 Urine Blood Non-haemolysed trace (Negative) 10/24/24 14:13 Urine Nitrate Positive (Negative) A 10/24/24 14:13 Urine Bilirubin Negative (Negative) 10/24/24 14:13 Urine Urobilinogen 1.0 mg/dL (Negative) 10/24/24 14:13 Ur Leukocyte Esterase 3+ (Negative) A 10/24/24 14:13 Urine RBC 3-5 /hpf (0-2) 10/24/24 14:13 Urine WBC >100 /hpf (0-5) H 10/24/24 14:13 Ur Squamous Epith Cells 0-5 /hpf (0-5) 10/24/24 14:13 Amorphous Sediment Not Reportable 10/24/24 14:13 Urine Bacteria Exceeds /hpf (NONE) 10/24/24 14:13 Hyaline Casts 58.17 /lpf 10/24/24 14:13 All radiology interpretation(s) finalized by discharge Discharge Plan Discharge Patient Disposition: Admitted As Inpatient Clinical Impression: Sepsis, UTI (urinary tract infection), Elevated troponin Condition: Stable Prescriptions: No Action acetaminophen 325 mg capsule 650 mg PO Q4H PRN (Reason: PAIN/FEVER) calcium carbonate [Tums] 200 mg calcium (500 mg) Tablet,Chewable 1,000 mg PO QID PRN (Reason: Indigestion) aspirin 81 mg Tablet,Delayed Release (Dr/Ec) 81 mg PO DAILY@08 magnesium hydroxide [Milk of Magnesia] 400 mg/5 mL Suspension 30 ml PO Q3D PRN (Reason: Constipation) bisacodyl [Dulcolax (bisacodyl)] 10 mg Suppository 10 mg AR DAILY PRN (Reason: Constipation) bisacodyl [Ducodyl (bisacodyl)] 5 mg Tablet,Delayed Release (Dr/Ec) 10 mg PO DAILY PRN (Reason: Constipation) metoprolol tartrate 25 mg Tablet 25 mg PO BID@0900,2100 Qty: 60 0RF ipratropium-albuterol 0.5 mg-3 mg(2.5 mg base)/3 mL solution for nebulization 3 ml inhalation Q6H PRN (Reason: shortness of breath or wheezing) Qty: 90 0RF atorvastatin 40 mg Tablet 40 mg PO DAILY Qty: 30 0RF clopidogrel [Plavix] 75 mg tablet 75 mg PO DAILY Qty: 30 0RF nitroglycerin 0.4 mg tablet, sublingual 0.4 mg sublingual Q5M PRN (Reason: chest pain) Qty: 20 0RF Rx Instructions: do not exceed 3 doses per episode losartan 25 mg Tablet 25 mg PO DAILY omeprazole 20 mg Capsule,Delayed Release(Dr/Ec) 20 mg PO DAILY isosorbide mononitrate 60 mg tablet extended release 24 hr 60 mg PO DAILY Qty: 30 0RF Referrals: Dominic Adams DO [Primary Care Provider] - Coding Level of Care Code ED Rip Sawyer for Clarenceg Sita
[2024-10-24 14:19] LABS: Lactic Sepsis W/Reflex 6.2 mmol/L (0.5-2.2)
[2024-10-24 14:24] LABS: Bilirubin Urine Negative (Negative); Blood Urine Non-haemolysed trace (Negative); Glucose Urine UA Negative (Normal); Ketones Urine Trace (Negative); Leukocyte Esterase Urine 3+ (Negative); Nitrate Urine Positive (Negative); Protein Urine 2+ (Negative); Specific Gravity, Urine 1.025 (1.005-1.030); Urine Appearance Turbid (CLEAR); Urine Color Dark Yellow (Yellow)
[2024-10-24 14:29] LABS: Add Urine Microscopic? YES; Bacteria Urine EXCEEDS /hpf; Hyaline Casts Urine 58.17 /lpf; Squamous Epithelial Cell Urine 0-5 /hpf (0-5); WBC Urine >100 /hpf (0-5)
[2024-10-24 14:44] LABS: D Dimer 0.43 ug/mLFEU (0-0.59)
[2024-10-24 14:52] LABS: UA Slide Review UA Slide Review Perf
--- NOTE | 2024-10-24 14:54 | CTR_ITS ---
PROCEDURE INFORMATION: Exam: CT Abdomen And Pelvis Without Contrast Exam date and time: 10/24/2024 3:09 PM Age: 78 years old Clinical indication: Other: Cystitis sepsis TECHNIQUE: Imaging protocol: Computed tomography of the abdomen and pelvis without contrast. Radiation optimization: All CT scans at this facility use at least one of these dose optimization techniques: automated exposure control; mA and/or kV adjustment per patient size (includes targeted exams where dose is matched to clinical indication); or iterative reconstruction. COMPARISON: CT abdomen pelvis wo con [id number] 08/05/2023 10:17 AM RADIATION DOSE METRICS: Total DLP (mGy-cm): 561.71 FINDINGS: Lungs: Extensive opacity on the right side was present previously and represents either fibrosis or recurrent pneumonia. Pleural spaces: Incompletely imaged small/moderate left pleural effusion. Liver: Normal. No mass. Gallbladder and biliary ducts: Normal. No calcified stones. No ductal dilation. Pancreas: Normal. No ductal dilation. Spleen: Normal. No splenomegaly. Adrenal glands: Normal. No mass. Kidneys and ureters: Normal. No hydronephrosis. Stomach and bowel: Diverticulosis without evidence of diverticulitis. Appendix: No evidence of appendicitis. Intraperitoneal space: Unremarkable. No free air. No significant fluid collection. Vasculature: Unremarkable. No abdominal aortic aneurysm. Lymph nodes: Unremarkable. No enlarged lymph nodes. Urinary bladder: Urinary bladder is collapsed around a Madrigal catheter. The wall of the urinary bladder is thickened. Reproductive: Enlarged prostate. Bones/joints: Unremarkable. No acute fracture. Soft tissues: Unremarkable. Other findings: Incompletely imaged conglomerate fibrosis on the left. CT/CT kidney stone [id number] IMPRESSION: 1. Urinary bladder wall thickening. 2. Small/moderate left pleural effusion, incompletely imaged. 3. Fibrosis versus recurrent pneumonia in the right lower lobe.
--- NOTE | 2024-10-24 14:56 | ECG_ITS ---
[facility] Test Date: 2024-10-24 Pat Name: Ben Ochoa Department: Room: Gender: Male Application Dba: : 1945 Requested By: Jesus Pittman Order Number: [id number] Brennon MD: Dedrick Gaona M.D. Measurements Intervals [place] Rate: 96 P: 55 OR: 164 QRS: 67 QRSD: 95 T: 73 QT: 334 QTc: 422 Interpretive Statements SINUS RHYTHM WITH OCCASIONAL VENTRICULAR PREMATURE COMPLEXES Compared to ECG 10/24/2024 12:54:48 Ventricular premature complex(es) now present Sinus tachycardia no longer present ST (T wave) deviation no longer present Electronically Signed On 10-24-2024 17:03:19 MANAGER ACCESS by Dedrick Gaona M.D. [id number]
[2024-10-24 14:57] LABS: Add Urine Culture? Yes
[2024-10-24 15:15] LABS: NT Pro B Type Natriuretic Pept 1221 pg/mL (0-450)
[2024-10-24 15:30] LABS: Troponin 5 2HR 46.83 ng/L (0-15); Troponin 5 2HR Delta -0.17 ABS# (0-10)
[2024-10-24] MEDS: piperacillin-tazobactam 3.375 GM in sodium chloride 0.9% (plus) 50 ML IV (15:32)
[2024-10-24 15:35] LABS: Reflex Lactate Order REFLEX LACTIC ORDERD
--- NOTE | 2024-10-24 15:41 | USCV_ITS ---
Ben Ochoa Age: 78 Gender: M : 1945 Exam Date: 10/24/2024 17:09 Ordering Phys: Yeyo Bhakta MD Technologist: Exam Location: [facility] [place] Indication: nstemi BP: 123 / 70 HR: 88 Rhythm: Sinus Technical Quality: Very technically difficult study MEASUREMENTS (Male / Female) Normal Values 2D ECHO LV Ejection Fraction MOD 4C 59.4 % LV Ejection Fraction MOD 2C 60.0 % LV Ejection Fraction 2C AL 60.6 % DOPPLER AV Peak Velocity 123.7 cm/s LVOT Peak Velocity 89.0 cm/s MV Area PHT 6.6 cm squared Mitral E to A Ratio 0.6 TR Peak Velocity 140.0 cm/s TR Peak Gradient 7.8 mmHg TV Peak E Velocity 72.0 cm/s FINDINGS Left Ventricle Normal left ventricular cavity size. systolic function and wall thickness, with no regional wall motion abnormalities. Left ventricular ejection fraction is estimated at 60 %. Grade I/IV diastolic dysfunction (abnormal relaxation filling pattern), normal to mildly elevated filling pressures. Right Ventricle The right ventricle is normal in size and function. Right Atrium The right atrium is normal in size. Left Atrium The left atrium is normal in size. Mitral Valve Structurally normal mitral valve without significant stenosis or prolapse. There is no mitral regurgitation. Aortic Valve Structurally normal aortic valve without significant sclerosis or stenosis. There is no aortic regurgitation. Tricuspid Valve Structurally normal tricuspid valve without significant stenosis or regurgitation. Pulmonic Valve Structurally normal pulmonic valve without significant stenosis. There is no pulmonic regurgitation. Pericardium Normal pericardium without effusion. Aorta Normal ascending aorta dimension. IVC The inferior vena cava appears normal. CONCLUSIONS Normal left ventricular cavity size. systolic function and wall thickness, with no regional wall motion abnormalities. Left ventricular ejection fraction is estimated at 60 %. Grade I/IV diastolic dysfunction (abnormal relaxation filling pattern), normal to mildly elevated filling pressures. There is no pericardial effusion. No significant valve abnormalities. Right atrial pressure is around 5 mm of mercury. Song Johnson MD (Electronically Signed) Final Date: 26 October 2024 17:10 S
--- NOTE | 2024-10-24 15:47 | P.HP_ITS ---
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 Patient was in emergency room this morning for chest pain, was discharged to [facility] facility, he comes back in due to complaints for chest pain, he denies any fevers, no chills, no nausea, no vomiting, no abdominal pain, no flank pain he has a chronic Madrigal catheter in place, does report burning sensation around the Madrigal catheter site, no back pain, no falls, no shortness of breath is alert to person, to place and not to time can follow commands Review of Systems 2 Const: Denies: fever(s), chills, fatigue or malaise Card: Reports: chest pain Resp: Denies: dyspnea GI: Denies: abdominal pain, nausea or vomiting : Denies: flank pain or difficulty urinating Neuro: Denies: headache(s) Medications/Allergies Home Medications Medication Instructions Recorded Confirmed Last Taken Type acetaminophen 325 mg capsule 650 mg PO Q4H PRN PAIN/FEVER 11/27/19 10/24/24 10/22/24 History calcium carbonate (Tums) 1,000 mg PO QID PRN Indigestion 12/08/20 10/24/24 10/22/24 History aspirin 81 mg tablet,delayed 81 mg PO DAILY@08 01/26/21 10/24/24 10/24/24 History release metoprolol tartrate 25 mg tablet 25 mg PO BID@0900,2100 #60 tabs 08/11/23 10/24/24 10/24/24 Rx ipratropium 0.5 mg-albuterol 3 mg 3 ml inhalation Q6H PRN shortness 01/20/24 10/24/24 08/16/24 Rx (2.5 mg base)/3 mL nebulization of breath or wheezing #90 mL soln atorvastatin 40 mg tablet 40 mg PO DAILY #30 tabs 08/15/24 10/24/24 10/24/24 Rx clopidogrel 75 mg tablet (Plavix) 75 mg PO DAILY #30 tabs 08/15/24 10/24/24 10/24/24 Rx nitroglycerin 0.4 mg sublingual 0.4 mg sublingual Q5M PRN chest 08/15/24 10/24/24 Unknown Rx tablet pain #20 tabs losartan 25 mg tablet 25 mg PO DAILY 08/17/24 10/24/24 08/16/24 History omeprazole 20 mg capsule,delayed 20 mg PO DAILY 08/17/24 10/24/24 10/23/24 History release isosorbide mononitrate 60 mg 60 mg PO DAILY #30 tabs 09/03/24 10/24/24 10/24/24 Rx tablet,extended release 24 hr bisacodyl 10 mg rectal suppository 10 mg HI DAILY PRN Constipation 10/24/24 10/24/24 Unknown History (Dulcolax (bisacodyl)) bisacodyl 5 mg tablet,delayed 10 mg PO DAILY PRN Constipation 10/24/24 10/24/24 Unknown History release magnesium hydroxide 400 mg/5 mL 30 ml PO Q3D PRN Constipation 10/24/24 10/24/24 Unknown History oral suspension (Milk of Magnesia) Allergies Allergy/AdvReac Type Severity Reaction Status Date / Time tetanus toxoid, adsorbed Allergy Unknown unknown Verified 09/03/24 08:19 PFSH Acute 2 PFSH: Medical History COPD (chronic obstructive pulmonary disease) Fever Persistent Hypoxia Delirium due to general medical condition Cystitis SVT (supraventricular tachycardia) AMS (altered mental status) Diastolic heart failure of unknown etiology GERD (gastroesophageal reflux disease) DJD (degenerative joint disease) Urinary retention Proteus infection BPH (benign prostatic hyperplasia) History of 2019 novel coronavirus disease (COVID-19) Ventricular premature beats Major depressive disorder, single episode, 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 Hoover 2015 Family History Father Cancer Grandfather Myocardial infarction Other CAD (coronary artery disease) Social History Smoking and tobacco/nicotine status: never used tobacco/nicotine Alcohol intake: never Substance/Drug Use: never Lives independently: No Marital status: Vitals/I&O/Wt Last Vital Signs Temp 97.6 F 10/24/24 12:51 Pulse 95 10/24/24 15:41 Resp 24 H 10/24/24 15:41 BP 104/60 10/24/24 15:41 Pulse Ox 92 10/24/24 15:41 O2 Del Method Room Air 10/24/24 14:18 Weight last 48 hrs Weight 63.957 kg Physical Exam 2 Const: COMMON NORMALS: no acute distress ORIENTATION/CONSCIOUSNESS: Yes awake, Yes oriented to person and Yes oriented to place; not oriented to time HENMT: COMMON NORMALS: normocephalic HEAD & SCALP: normocephalic Eye: COMMON NORMALS: Equal, round and reactive pupils present and EOMs intact bilaterally Neck/C-Spine: COMMON NORMALS: no JVD Lymph: LYMPHATIC: no lymphadenopathy noted Resp: COMMON NORMALS: normal respiratory effort, No retractions, No use of accessory muscles and clear to auscultation bilaterally AUSCULTATION: clear to auscultation bilaterally Cardio: COMMON NORMALS: regular rate, regular rhythm, S1 normal heart sound present and S2 normal heart sound present RATE: regular rate RHYTHM: r egular rhythm HEART SOUNDS: S1 normal heart sound present and S2 normal heart sound present GI: COMMON NORMALS: Normal to inspection, nondistended, normoactive bowel sounds present, Soft to palpation and non-tender : COMMON NORMALS: Yes no CVA tenderness Extremity: COMMON NORMALS: no pedal edema Neuro: COMMON NORMALS: patient oriented x3, CN's II-XII intact bilaterally and moves all extremities Psych: COMMON NORMALS: mental status grossly normal Data 10/24/24 12:39 10/24/24 12:39 Micro: Microbiology 10/24/24 15:02 Blood Culture - Preliminary Blood SPECIMEN COLLECTED 10/24/24 14:55 Blood Culture - Preliminary Blood SPECIMEN COLLECTED A&P Assessment and plan (1) Sepsis: Qualifiers: Acute renal failure type: unspecified Sepsis acute organ dysfunction status: with acute organ dysfunction Sepsis type: sepsis due to unspecified organism Severe sepsis acute organ dysfunction type: acute renal failure S evere sepsis shock status: with septic shock Qualified Code(s): A41.9 - Sepsis, unspecified organism; R65.21 - Severe sepsis with septic shock; N17.9 - Acute kidney failure, unspecified (2) Complicated urinary tract infection: (3) NSTEMI (non-ST elevated myocardial infarction): (4) Chest pain: (5) Pneumonia: Plan Sepsis -Sepsis features met given the lactic acid 6.2, leukocytosis, source of infection urinary tract, chronic Madrigal catheter, CT shows evidence of right lower lobe pneumonia -Monitor closely Complicated urinary tract infection -Chronic Madrigal catheter placed for urinary retention -Will change a Madrigal catheter based upon last time it was changed -Has a history of ESBL E. coli, Proteus -Broaden antibiotic coverage to meropenem -Follow urine cultures, blood cultures Concerns for right lower lobe pneumonia on CT imaging -Continue meropenem as above -Aspiration precautions -Speech therapy eval NSTEMI, with complaints of chest pain ? Serial EKGs, serial troponins, telemetry monitoring # Continue aspirin, statin, Plavix ? Heparin drip # Cardiac echo Full code ? Heparin drip for DVT prophylaxis Attestations 2 Medical Necessity Statement*: Patient requires hospitalization for sepsis, secondary to UTI, NSTEMI, chest pain, concerns for pneumonia elevated lactic acid, inpatient, greater than 2 midnights Diagnoses Sepsis A41.9; R65.21; N17.9 Acute renal failure type: unspecified Sepsis acute organ dysfunction status: with acute organ dysfunction Sepsis type: sepsis due to unspecified organism Severe sepsis acute organ dysfunction type: acute renal failure Severe sepsis shock status: with septic shock Complicated urinary tract infection N39.0 NSTEMI (non-ST elevated myocardial infarction) I21.4 Chest pain R07.9 Pneumonia J18.9
[2024-10-24 16:14] LABS: NT Pro B Type Natriuretic Pept 1258 pg/mL (0-450); Procalcitonin 0.16 ng/mL (0-0.5)
[2024-10-24 16:25] LABS: C Reactive Protein 68.6 mg/L (0.0-4.9)
[2024-10-24 16:26] LABS: Lactic Acid level (Lactate) 3.9 mmol/L (0.5-2.2)
[2024-10-24 16:31] LABS: Adenovirus Not Detected (NOT DETECT); Chlamydia Pneumoniae Not Detected (NOT DETECT); Coronavirus 229E,HKU1,NL63,OC4 Not Detected (NOT DETECT); Human Metapneumovirus Not Detected (NOT DETECT); Human Rhinovirus/Enterovirus Not Detected (NOT DETECT); Influenza A Not Detected (NOT DETECT); Influenza A H1 Not Detected (NOT DETECT); Influenza A H1-2009 Not Detected (NOT DETECT); Influenza A H3 Not Detected (NOT DETECT); Influenza B Not Detected (NOT DETECT); Mycoplasma Pneumoniae Not Detected (NOT DETECT); Parainfluenza Virus Type 1 Not Detected (NOT DETECT); Parainfluenza Virus Type 2 Not Detected (NOT DETECT); Parainfluenza Virus Type 3 Not Detected (NOT DETECT); Parainfluenza Virus Type 4 Not Detected (NOT DETECT); Respiratory Syncytial Virus A Not Detected (NOT DETECT); Respiratory Syncytial Virus B Not Detected (NOT DETECT); SARS-COV-2 Not Detected (NOT DETECT)
[2024-10-24] MEDS: heparin 5,000 unit/mL INJ 1 mL IVP (16:59)
[2024-10-24] MEDS: heparin drip 25,000 UNIT/500 ML PREMIX 21 UNIT IV (17:01)
[2024-10-24 17:21] LABS: Estmated Average Glucose 108; Hemoglobin A1C 5.4 % (4.0-6.0)
[2024-10-24 17:22] LABS: Thyroid Stimulating Hormone 2.37 uIU/mL (0.27-4.20)
[2024-10-24] MEDS: pantoprazole 40 mg SDV IVP (17:23)
[2024-10-24] MEDS: meropenem 1,000 mg SDV 1000 MG IVP (17:24)
[2024-10-24] MEDS: sodium chloride 0.9% 1,000 ML 50 ML IV (17:26)
[2024-10-24] MEDS: midodrine 5 mg TABLET 10 MG PO ×2 (17:28→23:12)
--- NOTE | 2024-10-24 17:40 | PHA.VACGOAL ---
Vancomycin Goal - Goal Vancomycin Goal:: 15-20 mg/L Vancomycin Indication:: Pneumonia - Therapy Day of therpy:: Day []of [] . Actual body weight (kg): 166 lb 4.8 oz - Data Labs: WBC 20.45 10^3/uL (3.29-11.43) H 10/24/24 12:39 RBC 5.09 10^6/uL (3.85-5.65) 10/24/24 12:39 Hgb 13.30 g/dL (11.27-16.99) 10/24/24 12:39 Hct 43.6 % (37-53) 10/24/24 12:39 MCV 85.7 fl (82-101) 10/24/24 12:39 MCH 26.1 pg (27-33) L 10/24/24 12:39 MCHC 30.5 g/dL (30-55) 10/24/24 12:39 RDW 13.2 % (12.1-15.1) 10/24/24 12:39 Sodium 141 mmol/L (136-145) 10/24/24 12:39 Potassium 4.7 mmol/L (3.5-5.1) 10/24/24 12:39 Chloride 101 mmol/L (98-107) 10/24/24 12:39 Carbon Dioxide 24 mmol/L (22-29) 10/24/24 12:39 Anion Gap 20.7 (5-19) H 10/24/24 12:39 BUN 23 mg/dL (8-23) 10/24/24 12:39 Creatinine 1.1 mg/dL (0.7-1.2) 10/24/24 12:39 GFR Calculation Not Reportable 10/24/24 12:39 Treatment plan:: new consult Regimen:: 2000MG LOADING FOLLOWED BY 500 MG Q12H
[2024-10-24] MEDS: vancomycin 2,000 MG/400 ML PIGGYBACK 200 MG IV (18:04)
--- NOTE | 2024-10-24 18:22 | ECG_ITS ---
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1945 Requested By: Jesus Pittman Order Number: [id number] Reading MD: RASHIDA BARRIGA Measurements Intervals [place] Rate: 98 P: 71 [place]: 159 QRS: 65 QRSD: 96 T: 75 QT: 334 QTc: 427 Interpretive Statements SINUS RHYTHM WITH OCCASIONAL VENTRICULAR PREMATURE COMPLEXES ST DEVIATION AND MODERATE T-WAVE ABNORMALITY, CONSIDER INFERIOR ISCHEMIA [-0.1+ mV T-WAVE IN II/aVF] Compared to ECG 10/24/2024 14:42:32 T-wave abnormality now present Possible ischemia now present Electronically Signed On 10-25-2024 18:42:10 CHARACTER ACTRESS by RASHIDA BARRIGA [id number]
--- NOTE | 2024-10-24 18:49 | PC.NURSE ---
Patient gave verbal permission for Aminata to b given information about him. her number is [phone].
[2024-10-24 19:19] LABS: Troponin 5 6HR 21.79 ng/L (0-15)
[2024-10-24 19:22] LABS: Troponin 5 6HR Delta -25.21 ng/L (0-12)
[2024-10-24 23:23] LABS: Partial Thromboplastin Time 125.9 SECONDS (23.9-36.7)
[2024-10-25] VITALS (7 sets, daily range): BP systolic 116–171; BP diastolic 70–82; PULSE 67–110; RESP 16–19; TEMP 36.8–37.7; O2SAT 91–95
[2024-10-25] MEDS: meropenem 1,000 mg SDV 1000 MG IVP ×3 (01:06→17:32)
[2024-10-25] MEDS: sodium chloride 0.9% 1,000 ML 100 ML IV ×3 (03:03→23:27)
--- NOTE | 2024-10-25 03:19 | ECG_ITS ---
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: : 1945 Requested By: Song Jones Order Number: [id number] Reading MD: SONG BARRIGA Measurements Intervals [place] Rate: 104 P: 42 [place]: 180 QRS: 49 QRSD: 97 T: 101 QT: 323 QTc: 427 Interpretive Statements SINUS TACH[address] ST DEVIATION AND MODERATE T-WAVE ABNORMALITY, CONSIDER ANTEROLATERAL ISCHEMIA [-0.1+ mV T-WAVE IN V3-V6] Compared to ECG 10/24/2024 18:22:12 Sinus rhythm no longer present Ventricular premature complex(es) no longer present T-wave abnormality still present Possible ischemia still present Electronically Signed On 10-25-2024 18:40:12 NAILER HAND by SONG BARRIGA [id number]
[2024-10-25] MEDS: morphine 4 mg/mL SDV 1 mL 2 MG IVP (03:39)
[2024-10-25 04:05] LABS: Basophils # 0.1 10^3/uL (0.0-0.1); Basophils % 0.5 %; Eosinophils % 0.3 %; Hematocrit 43.9 % (37-53); Lymphocytes # 1.8 10^3/uL (0.8-4.8); Lymphocytes % 11.9 %; Mean Corpuscular Hemoglobin 26.4 pg (27-33); Mean Corpuscular Volume 85.2 fl (82-101); Mean Platelet Volume 11.4 fL (7.4-10.4); Monocytes # 1.2 10^3/uL (0.2-0.9); Monocytes % 8.1 %; Neutrophils # 11.87 10^3/uL (1.8-7.7); Neutrophils % 78.5 %; Nucleated Red Blood Cells % 0 %; Platelet Count 179 10^3/cmm (157-399); Red Blood Count 5.15 10^6/uL (3.85-5.65); Red Cell Distribution Width 13.7 % (12.1-15.1); White Blood Count 15.09 10^3/uL (3.29-11.43)
[2024-10-25 04:18] LABS: Lactic Sepsis W/Reflex 2.6 mmol/L (0.5-2.2)
[2024-10-25 04:22] LABS: Troponin(5th) Baseline 68 ng/L (0-15)
[2024-10-25 04:27] LABS: Alanine Aminotransferase 12 U/L (0-41); Albumin Level 4.1 g/dL (3.5-5.2); Alkaline Phosphatase 126 U/L (40-130); Anion Gap 18.2 (5-19); Aspartate Amino Transferase 16 U/L (0-40); Blood Urea Nitrogen 28 mg/dL (8-23); Calcium 9.5 mg/dL (8.5-10.5); Carbon Dioxide 24 mmol/L (22-29); Chloride 100 mmol/L (98-107); Creatinine Clr Calc Pharmacy 60.0686; Globulin 3.5 g/dL (1.3-4.6); Glucose 91 mg/dL (65-115); Magnesium 1.6 mg/dL (1.7-2.3); Osmolality Calculated 291 mOsm/kg (285-295); Potassium 4.2 mmol/L (3.5-5.1); Sodium 138 mmol/L (136-145); Total Protein 7.6 g/dL (6.6-8.7)
[2024-10-25 04:28] LABS: NT Pro B Type Natriuretic Pept 924 pg/mL (0-450)
[2024-10-25 04:30] LABS: Procalcitonin 0.84 ng/mL (0-0.5)
[2024-10-25 04:43] LABS: C Reactive Protein 196.1 mg/L (0.0-4.9)
[2024-10-25 05:28] LABS: Reflex Lactate Order REFLEX LACTIC ORDERD
--- NOTE | 2024-10-25 05:33 | ECG_ITS ---
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: : 1945 Requested By: Song Jones Order Number: [id number] Reading MD: SONG BARRIGA Measurements Intervals [place] Rate: 103 P: 47 [place]: 161 QRS: 52 QRSD: 106 T: 45 QT: 347 QTc: 455 Interpretive Statements SINUS TACHYCARDIA WITH FREQUENT VENTRICULAR PREMATURE COMPLEXES ABNORMAL RHYTHM ECG INTERPRETATION BASED ON A DEFAULT AGE OF 40 YEARS Compared to ECG 10/25/2024 03:27:43 Ventricular premature complex(es) now present T-wave abnormality no longer present Possible ischemia no longer present Electronically Signed On 10-25-2024 18:41:53 MONITOR AND STORAGE BIN TENDER by SONG BARRIGA [id number]
[2024-10-25] MEDS: midodrine 5 mg TABLET 10 MG PO ×2 (05:50→12:24)
[2024-10-25] MEDS: vancomycin 500 MG in sodium chloride 0.9% (plus) 100 ML 200 MG IV ×2 (05:50→17:32)
[2024-10-25 06:18] LABS: Troponin 5 2HR 58.32 ng/L (0-15); Troponin 5 2HR Delta -9.68 ABS# (0-10)
[2024-10-25 06:22] LABS: Partial Thromboplastin Time 87.3 SECONDS (23.9-36.7)
[2024-10-25 07:15] LABS: Lactic Acid level (Lactate) 2.3 mmol/L (0.5-2.2)
--- NOTE | 2024-10-25 09:33 | ECG_ITS ---
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
[2024-10-25] MEDS: atorvastatin 40 mg Tablet PO (09:49)
[2024-10-25] MEDS: aspirin 81 mg EC Tablet PO (09:49)
[2024-10-25] MEDS: clopidogrel 75 mg Tablet PO (09:49)
[2024-10-25 14:17] LABS: Partial Thromboplastin Time 45.3 SECONDS (23.9-36.7)
--- NOTE | 2024-10-25 15:07 | P.PN_ITS ---
Subjective 2 Subjective: Patient was seen this morning, no chest pain overnight, does report fatigue, malaise, nausea, vomiting Vitals/I&O/Wt Last Vital Signs Temp 99.8 F H 10/25/24 13:10 Pulse 70 10/25/24 13:10 Resp 16 10/25/24 13:10 BP 148/82 10/25/24 13:10 Pulse Ox 94 10/25/24 13:10 O2 Del Method Nasal Cannula 10/25/24 13:10 O2 Flow Rate 2 10/25/24 08:00 10/25/24 10/25/24 10/25/24 06:59 14:59 22:59 Intake Total 1319.5 / 8112.422 1802 / 1855 Output Total 650 / 650 Balance 669.5 / 3090.943 3054 / 1855 Weight last 48 hrs Weight 77.02 kg Weight 75.432 kg Weight 63.957 kg Physical Exam 2 Const: COMMON NORMALS: no acute distress and patient oriented x3 Resp: COMMON NORMALS: normal respiratory effort, No retractions, No use of accessory muscles and clear to auscultation bilaterally AUSCULTATION: clear to auscultation bilaterally Cardio: COMMON NORMALS: regular rate, regular rhythm, S1 normal heart sound present and S2 normal heart sound present RATE: regular rate RHYTHM: r egular rhythm HEART SOUNDS: S1 normal heart sound present and S2 normal heart sound present GI: COMMON NORMALS: Normal to inspection, nondistended, normoactive bowel sounds present and non-tender Extremity: COMMON NORMALS: no pedal edema Neuro: COMMON NORMALS: patient oriented x3 Psych: COMMON NORMALS: mental status grossly normal Urinary Catheter Management: Madrigal: Cath Placed During This Visit: yes Urinary Catheter Date of Insertion: 10/25/24 Urinary Catheter Time of Insertion: 14:27 Data 10/25/24 03:38 10/25/24 03:38 Micro: Microbiology 10/24/24 15:02 Blood Culture - Preliminary Blood NEGATIVE TO DATE 10/24/24 14:55 Blood Culture - Preliminary Blood NEGATIVE TO DATE 10/24/24 14:13 Urine Culture - Preliminary Urine,Clean Catch Gram Negative Rods A&P Assessment and plan (1) Sepsis: Qualifiers: Acute renal failure type: unspecified Sepsis acute organ dysfunction status: with acute organ dysfunction Sepsis type: sepsis due to unspecified organism Severe sepsis acute organ dysfunction type: acute renal failure S evere sepsis shock status: with septic shock Qualified Code(s): A41.9 - Sepsis, unspecified organism; R65.21 - Severe sepsis with septic shock; N17.9 - Acute kidney failure, unspecified (2) Complicated urinary tract infection: (3) NSTEMI (non-ST elevated myocardial infarction): (4) Chest pain: (5) Pneumonia: Plan Sepsis -Sepsis features met given the lactic acid 6.2, leukocytosis, source of infection urinary tract, chronic Madrigal catheter, CT shows evidence of right lower lobe pneumonia -Monitor closely Complicated urinary tract infection -Chronic Madrigal catheter placed for urinary retention -Will change a Madrigal catheter based upon last time it was changed -Has a history of ESBL E. coli, Proteus -Broaden antibiotic coverage to meropenem -Follow urine cultures, blood cultures Concerns for right lower lobe pneumonia on CT imaging -Continue meropenem as above -Aspiration precautions -Speech therapy eval NSTEMI, with complaints of chest pain ? Serial EKGs, serial troponins, telemetry monitoring # Continue aspirin, statin, Plavix ? Heparin drip # Cardiac echo Full code ? Heparin drip for DVT prophylaxis Attestations 2 Medical Necessity Statement*: Patient requires hospitalization for sepsis sec to UTI, concerns for pneumonia, NSTEMI Diagnoses Sepsis A41.9; R65.21; N17.9 Acute renal failure type: unspecified Sepsis acute organ dysfunction status: with acute organ dysfunction Sepsis type: sepsis due to unspecified organism Severe sepsis acute organ dysfunction type: acute renal failure Severe sepsis shock status: with septic shock Complicated urinary tract infection N39.0 NSTEMI (non-ST elevated myocardial infarction) I21.4 Chest pain R07.9 Pneumonia J18.9
[2024-10-25] MEDS: heparin 5,000 unit/mL INJ 1 mL IVP (16:05)
[2024-10-25] MEDS: pantoprazole 40 mg SDV IVP (17:33)
[2024-10-25] MEDS: acetaminophen 325 mg Tablet 650 MG PO (17:33)
[2024-10-25] MEDS: heparin drip 25,000 UNIT/500 ML PREMIX 15 UNIT IV (17:34)
[2024-10-25] MEDS: magnesium sulfate premix 2 GM/50 ML PIGGYBACK IV (20:47)
[2024-10-25 22:12] LABS: Partial Thromboplastin Time 65.2 SECONDS (23.9-36.7)
--- NOTE | 2024-10-25 23:44 | XRR_ITS ---
PROCEDURE INFORMATION: Exam: XR Chest Exam date and time: 10/26/2024 12:01 AM Age: 78 years old Clinical indication: Patient HX: Audible wheezing; Additional info: Adventicious lung sounds TECHNIQUE: Imaging protocol: Radiologic exam of the chest. Views: 1 view. COMPARISON: CR XR chest 1V portable [id number] 10/24/2024 1:20 PM FINDINGS: Lungs: Patchy airspace disease present in the right mid lung field and left lung base. Mild biapical parenchymal scarring. Pleural spaces: Suspected small left pleural effusion. Heart/Mediastinum: The heart is stable in size. Bones/joints: Unremarkable. XR/XR chest 1V portable [id number] IMPRESSION: 1. Development of multifocal airspace disease likely reflecting pneumonia. 2. Small left pleural effusion.
[2024-10-26] VITALS (7 sets, daily range): BP systolic 144–161; BP diastolic 74–85; PULSE 70–113; RESP 15–20; TEMP 36.8–37.2; O2SAT 95–96
[2024-10-26] MEDS: meropenem 1,000 mg SDV 1000 MG IVP ×3 (02:50→20:33)
[2024-10-26 05:35] LABS: Basophils % 0.5 %; Eosinophils # 0.1 10^3/uL (0.0-0.8); Eosinophils % 1.4 %; Hematocrit 38.3 % (37-53); Lymphocytes # 0.8 10^3/uL (0.8-4.8); Lymphocytes % 10.2 %; Mean Corpuscular HGB Conc 31.1 g/dL (30-55); Mean Corpuscular Hemoglobin 25.8 pg (27-33); Mean Corpuscular Volume 83.1 fl (82-101); Mean Platelet Volume 11.3 fL (7.4-10.4); Monocytes # 0.6 10^3/uL (0.2-0.9); Monocytes % 7.9 %; Neutrophils # 6.38 10^3/uL (1.8-7.7); Neutrophils % 79.5 %; Nucleated Red Blood Cells % 0 %; Platelet Count 136 10^3/cmm (157-399); Red Blood Count 4.61 10^6/uL (3.85-5.65); Red Cell Distribution Width 13.7 % (12.1-15.1); White Blood Count 8.02 10^3/uL (3.29-11.43)
[2024-10-26] MEDS: vancomycin 500 MG in sodium chloride 0.9% (plus) 100 ML 200 MG IV ×2 (05:43→18:36)
[2024-10-26 05:44] LABS: Partial Thromboplastin Time 52.5 SECONDS (23.9-36.7)
[2024-10-26 05:52] LABS: Alanine Aminotransferase 9 U/L (0-41); Albumin Level 3.2 g/dL (3.5-5.2); Alkaline Phosphatase 111 U/L (40-130); Anion Gap 14.9 (5-19); Aspartate Amino Transferase 16 U/L (0-40); Blood Urea Nitrogen 20 mg/dL (8-23); Calcium 8.5 mg/dL (8.5-10.5); Carbon Dioxide 22 mmol/L (22-29); Chloride 105 mmol/L (98-107); Creatinine Clr Calc Pharmacy 82.6727; Globulin 2.8 g/dL (1.3-4.6); Glucose 91 mg/dL (65-115); Osmolality Calculated 288 mOsm/kg (285-295); Potassium 3.9 mmol/L (3.5-5.1); Sodium 138 mmol/L (136-145); Total Bilirubin 0.5 mg/dL (0.15-1.2)
[2024-10-26 05:54] LABS: NT Pro B Type Natriuretic Pept 2019 pg/mL (0-450); Procalcitonin 0.56 ng/mL (0-0.5)
[2024-10-26 05:55] LABS: C Reactive Protein 215.7 mg/L (0.0-4.9)
[2024-10-26] MEDS: heparin 5,000 unit/mL INJ 1 mL IVP (06:25)
[2024-10-26] MEDS: atorvastatin 40 mg Tablet PO (10:18)
[2024-10-26] MEDS: clopidogrel 75 mg Tablet PO (10:18)
[2024-10-26] MEDS: aspirin 81 mg EC Tablet PO (10:18)
[2024-10-26] MEDS: midodrine 5 mg TABLET 10 MG PO (10:55)
[2024-10-26] MEDS: lidocaine 2% viscous 15 ML, aluminum-mag hydrox-simethicon 30 ML, sucralfate oral liq 1 GM PO (10:55)
[2024-10-26] MEDS: polyethylene glycol 3350 Pkt 17 gm PO (10:56)
[2024-10-26 13:00] LABS: Partial Thromboplastin Time 52.6 SECONDS (23.9-36.7)
--- NOTE | 2024-10-26 14:59 | P.PN_ITS ---
Subjective 2 Subjective: Patient was seen this morning, he does complain of some coughing and some shortness of breath, no fevers, no chills, no nausea, no vomiting Vitals/I&O/Wt Last Vital Signs Temp 98.3 F 10/26/24 12:00 Pulse 84 10/26/24 12:00 Resp 16 10/26/24 12:00 BP 156/82 10/26/24 12:00 Pulse Ox 95 10/26/24 12:00 O2 Del Method Nasal Cannula 10/26/24 12:00 O2 Flow Rate 2 10/26/24 08:00 10/25/24 10/26/24 10/26/24 22:59 06:59 14:59 Intake Total 2098.00 / 3953.00 232.583 / 4185.583 674.2 / 674.2 Output Total 700 / 700 900 / 1600 950 / 950 Balance 1398.00 / 3253.00 -667.417 / 2585.583 -275.8 / -275.8 Weight last 48 hrs Weight 75.614 kg Weight 77.02 kg Weight 75.432 kg Physical Exam 2 Const: COMMON NORMALS: no acute distress and patient oriented x3 Resp: COMMON NORMALS: normal respiratory effort, No retractions and No use of accessory muscles AUSCULTATION: wheezes Cardio: COMMON NORMALS: regular rate, regular rhythm, S1 normal heart sound present and S2 normal heart sound present RATE: regular rate RHYTHM: r egular rhythm HEART SOUNDS: S1 normal heart sound present and S2 normal heart sound present GI: COMMON NORMALS: Normal to inspection, nondistended, normoactive bowel sounds present and non-tender Extremity: COMMON NORMALS: no pedal edema Neuro: COMMON NORMALS: patient oriented x3 Psych: COMMON NORMALS: mental status grossly normal Urinary Catheter Management: Madrigal: Cath Placed During This Visit: yes Reason for Continuing Indwelling Catheter: Chronic Indwelling Urinary Catheter on Admission Urinary Catheter Date of Insertion: 10/25/24 Urinary Catheter Time of Insertion: 14:27 Data 10/26/24 04:36 10/26/24 04:36 Micro: Microbiology 10/24/24 14:13 Urine Culture - Preliminary Urine,Clean Catch Gram Negative Rods 10/24/24 15:02 Blood Culture - Preliminary Blood NEGATIVE TO DATE 10/24/24 14:55 Blood Culture - Preliminary Blood NEGATIVE TO DATE A&P Assessment and plan (1) Sepsis: Qualifiers: Acute renal failure type: unspecified Sepsis acute organ dysfunction status: with acute organ dysfunction Sepsis type: sepsis due to unspecified organism Severe sepsis acute organ dysfunction type: acute renal failure S evere sepsis shock status: with septic shock Qualified Code(s): A41.9 - Sepsis, unspecified organism; R65.21 - Severe sepsis with septic shock; N17.9 - Acute kidney failure, unspecified (2) Complicated urinary tract infection: (3) NSTEMI (non-ST elevated myocardial infarction): (4) Chest pain: (5) Pneumonia: Plan Sepsis, resolving -Sepsis features met given the lactic acid 6.2, leukocytosis, source of infection urinary tract, chronic Madrigal catheter, CT shows evidence of right lower lobe pneumonia -Monitor closely ? Stop fluids ? 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 coli, Proteus -Broaden antibiotic coverage to meropenem -Follow urine cultures, blood cultures Concerns for right lower lobe pneumonia on CT imaging -Continue meropenem as above # Continue vancomycin -Aspiration precautions -Speech therapy eval NSTEMI, with complaints of chest pain ? Serial EKGs, serial troponins, telemetry monitoring # Continue aspirin, statin, Plavix ? Heparin drip, completed 48 hours of anticoagulation, stop heparin drip # Cardiac echo pending Fluid overload, stopped midodrine, stop fluids 1 dose IV Lasix Full code ? Lovenox for DVT prophylaxis Attestations 2 Medical Necessity Statement*: Patient requires hospitalization for UTI, pneumonia, NSTEMI, sepsis Diagnoses Sepsis A41.9; R65.21; N17.9 Acute renal failure type: unspecified Sepsis acute organ dysfunction status: with acute organ dysfunction Sepsis type: sepsis due to unspecified organism Severe sepsis acute organ dysfunction type: acute renal failure Severe sepsis shock status: with septic shock Complicated urinary tract infection N39.0 NSTEMI (non-ST elevated myocardial infarction) I21.4 Chest pain R07.9 Pneumonia J18.9
[2024-10-26] MEDS: pantoprazole 40 mg SDV IVP (15:47)
[2024-10-26] MEDS: FUROsemide 10 mg/mL SDV 4mL 40 MG IVP (15:47)
[2024-10-26] MEDS: sennosides-docusate Tablet 1 TAB PO (18:37)
[2024-10-26 19:01] LABS: Partial Thromboplastin Time 38.5 SECONDS (23.9-36.7)
[2024-10-26] MEDS: enoxaparin 40 mg/0.4 mL Syringe SUBCUT (20:33)
[2024-10-27] VITALS (8 sets, daily range): BP systolic 118–131; BP diastolic 58–81; PULSE 92–106; RESP 16–17; TEMP 36.3–37.1; O2SAT 93–95
[2024-10-27] MEDS: meropenem 1,000 mg SDV 1000 MG IVP ×2 (02:13→11:37)
--- NOTE | 2024-10-27 05:11 | ECG_ITS ---
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 Measurements Intervals [place] Rate: 105 P: 33 UT: 140 QRS: 43 QRSD: 100 T: 45 QT: 344 QTc: 455 Interpretive Statements SINUS TACHYCARDIA ABNORMAL RHYTHM ECG Compared to ECG 10/25/2024 11:00:09 ST (T wave) deviation no longer present Electronically Signed On 10-28-2024 23:49:49 MEDICAL SCIENCE LIAISON by Dedrick Gaona M.D. [email or web address]
[2024-10-27 05:12] LABS: Basophils % 0.3 %; Eosinophils % 0.4 %; Hematocrit 39.8 % (37-53); Lymphocytes % 9.2 %; Mean Corpuscular HGB Conc 31.9 g/dL (30-55); Mean Corpuscular Hemoglobin 25.9 pg (27-33); Mean Corpuscular Volume 81.2 fl (82-101); Mean Platelet Volume 11.6 fL (7.4-10.4); Monocytes # 1.1 10^3/uL (0.2-0.9); Monocytes % 10.1 %; Neutrophils # 8.72 10^3/uL (1.8-7.7); Neutrophils % 79.5 %; Nucleated Red Blood Cells % 0 %; Platelet Count 159 10^3/cmm (157-399); Red Cell Distribution Width 13.4 % (12.1-15.1); White Blood Count 10.96 10^3/uL (3.29-11.43)
[2024-10-27 05:39] LABS: Alanine Aminotransferase 9 U/L (0-41); Albumin Level 3.1 g/dL (3.5-5.2); Alkaline Phosphatase 117 U/L (40-130); Aspartate Amino Transferase 17 U/L (0-40); Blood Urea Nitrogen 21 mg/dL (8-23); Calcium 8.9 mg/dL (8.5-10.5); Carbon Dioxide 21 mmol/L (22-29); Chloride 101 mmol/L (98-107); Creatinine Clr Calc Pharmacy 82.7119; Globulin 3.7 g/dL (1.3-4.6); Glucose 110 mg/dL (65-115); Osmolality Calculated 282 mOsm/kg (285-295); Sodium 134 mmol/L (136-145); Total Bilirubin 0.7 mg/dL (0.15-1.2); Total Protein 6.8 g/dL (6.6-8.7)
[2024-10-27 05:43] LABS: NT Pro B Type Natriuretic Pept 1907 pg/mL (0-450); Procalcitonin 0.41 ng/mL (0-0.5)
[2024-10-27 05:52] LABS: Anion Gap 16.1 (5-19); Potassium 4.1 mmol/L (3.5-5.1)
[2024-10-27 05:54] LABS: C Reactive Protein 173.8 mg/L (0.0-4.9)
[2024-10-27] MEDS: vancomycin 500 MG in sodium chloride 0.9% (plus) 100 ML 200 MG IV (05:57)
[2024-10-27] MEDS: atorvastatin 40 mg Tablet PO (08:00)
[2024-10-27] MEDS: polyethylene glycol 3350 Pkt 17 gm PO (08:00)
[2024-10-27] MEDS: sennosides-docusate Tablet 1 TAB PO (08:05)
[2024-10-27] MEDS: clopidogrel 75 mg Tablet PO (08:06)
[2024-10-27] MEDS: aspirin 81 mg EC Tablet PO (08:06)
[2024-10-27] MEDS: isosorbide mononitrate ER 30 mg Tablet PO (09:06)
--- NOTE | 2024-10-27 09:29 | PC.CHAP ---
Pastoral Care Encounter/Spiritual Assessment Type of Contact [] Declined terrazzo roller visit [] Patient/Family/Request visit [] Outpatient visit [] Follow-up visit [] Physician referral [] Code/Alert [x] Routine visit [] Staff referral [] Actively dying [x] Patient sleeping [] Family support [] [] Out of room [] Palliative care [] [] Receiving care in room [] Pre-surgical visit [] Trauma [] Long length of stay [] ICU visit [] Other: Relational/Emotional Strength [] Patient feels connected with others/family/visitors/staff [] Distress [] Loneliness/isolation [] Abandonment Spirituality of Patient [] Person of Luz [] Attends Muslim of their Luz [] Believes in Prayer [] Reads Bible or Religion materials [] There are Spiritual issues to be addressed Packing Line Operator Interventions [x] Prayer [] Active listening [] Non-anxious presence [] Spiritual/emotional support [] Crisis/trauma care [] Spiritual counseling [] Bereavement support [] Provided bereavement packet [] Provided Bible/devotional materials [] Provided toy/stuffed animal, coloring book to patient or family member [] Provided Communion [] Anointing/[place] [] Salvation [] Completed spiritual assessment [] Other: Impact on Illness or Injury [] Angry [] Fearful [] Anxious [] Often cries [] Exhaustion [] Unable to work [] Unable to attend taoist [] Unable to walk/stand [] Unable to read [] Unable to drive [] Unable to eat/drink [] Unable to sleep [] Unable to be with family [] Patient intubated [] Other: Summary Time spent with patient
--- NOTE | 2024-10-27 11:50 | P.DS_ITS ---
Discharge Providers Date of Admission: 10/24/24 16:17 Date of Discharge: October 27, 2024 Attending Provider at Admission: Yeyo Bhakta MD Attending Provider at Discharge: Yeyo Bhakta MD Primary Care Provider: Dominic Adams DO Diagnoses at Discharge Discharge Diagnosis (1) Sepsis: Status: Acute Qualifiers: Acute renal failure type: unspecified Sepsis acute organ dysfunction status: with acute organ dysfunction Sepsis type: sepsis due to unspecified organism Severe sepsis acute organ dysfunction type: acute renal failure Severe sepsis shock status: with septic shock Qualified Code(s): A41.9 - Sepsis, unspecified organism; R65.21 - Severe sepsis with septic shock; N17.9 - Acute kidney failure, unspecified (2) Complicated urinary tract infection: Status: Acute (3) NSTEMI (non-ST elevated myocardial infarction): Status: Acute (4) Chest pain: Status: Inactive (5) Pneumonia: Status: Inactive Reason for Visit Reason for Visit: chest pain Hospital Course Hospital Course Ben Ochoa is a 78 year old male with a past medical history of mild dementia, COPD urine retention with chronic Pinzon catheter in place, history of NSTEMI, who presents to [facility] from alf facility due to complaints of chest pain. Patient was in emergency room this morning for chest pain, was discharged to alf facility, he comes back in due to complaints for chest pain, he denies any fevers, no chills, no nausea, no vomiting, no abdominal pain, no flank pain he has a chronic Pinzon catheter in place, does report burning sensation around the Pinzon catheter site, no back pain, no falls, no shortness of breath is alert to person, to place and not to time can follow commands This is a 78-year-old male who presents to [facility] for sepsis secondary to complicated urinary tract infection with chronic Pinzon catheter in place, managed on IV antibiotics, monitored as inpatient overall clinically improved, urine culture showing Proteus species, sensitive to cephalosporins, discharged on 10 days of cefdinir. Given his chronic indwelling Pinzon catheter and it was changed 10/25/2024, follow-up with Dr. Lundy urology in [facility]. There is also concerns for right lower lobe pneumonia on CT received IV antibiotics, overall clinically improved, follow-up with primary care provider for consideration repeat CT scan in 1 month There is also concerns for chest pain during this hospitalization, received aspirin, statin, Plavix, 48 hours of anticoagulant therapy, cardiac echo as below CONCLUSIONS Normal left ventricular cavity size. systolic function and wall thickness, with no regional wall motion abnormalities. Left ventricular ejection fraction is estimated at 60 %. Grade I/IV diastolic dysfunction (abnormal relaxation filling pattern), normal to mildly elevated filling pressures. There is no pericardial effusion. No significant valve abnormalities. Right atrial pressure is around 5 mm of mercury. -No recurrent chest pain complaints during his hospitalization -Discharged on aspirin, statin, beta-iván, Imdur with a follow-up with cardiology as outpatient Physical Exam Const: COMMON NORMALS: no acute distress ORIENTATION/CONSCIOUSNESS: Yes awake, Yes oriented to person and Yes oriented to place Resp: COMMON NORMALS: normal respiratory effort, No retractions, No use of accessory muscles and clear to auscultation bilaterally AUSCULTATION: clear to auscultation bilaterally Cardio: COMMON NORMALS: regular rate, regular rhythm, S1 normal heart sound present and S2 normal heart sound present RATE: regular rate RHYTHM: regular rhythm HEART SOUNDS: S1 normal heart sound present and S2 normal hear t sound present GI: COMMON NORMALS: Normal to inspection, nondistended, normoactive bowel sounds present and non-tender Extremity: COMMON NORMALS: no pedal edema Neuro: SENSORIUM/ORIENTATION: Yes oriented to person and Yes oriented to place Psych: COMMON NORMALS: mental status grossly normal Urinary Catheter Management: Pinzon: Cath Placed During This Visit: yes Reason for Continuing Indwelling Catheter: Chronic Indwelling Urinary Catheter on Admission Urinary Catheter Date of Insertion: 10/25/24 Urinary Catheter Time of Insertion: 14:27 Discharge Data Studies Completed and Pending Completed Studies During Hospitalization Category Date Time Status CT kidney stone [id number] Stat Cat Scan 10/24/24 14:54 Completed XR chest 1V portable [id number] Stat Exams 10/24/24 12:56 Completed XR chest 1V portable [id number] Stat Exams 10/25/24 23:44 Completed CV. echo complete* [id number] Stat Ultrasound 10/24/24 15:41 Completed Pending at discharge Category Date Time Status Blood Culture Stat Lab 10/24/24 15:02 Results Radiology Impressions Abdomen/Pelvis CT 10/24/24 14:54 IMPRESSION: 1. Urinary bladder wall thickening. 2. Small/moderate left pleural effusion, incompletely imaged. 3. Fibrosis versus recurrent pneumonia in the right lower lobe. Chest X-Ray 10/25/24 23:44 IMPRESSION: 1. Development of multifocal airspace disease likely reflecting pneumonia. 2. Small left pleural effusion. Laboratory Results WBC 10.96 10^3/uL (3.29-11.43) 10/27/24 04:46 RBC 4.90 10^6/uL (3.85-5.65) 10/27/24 04:46 Hgb 12.70 g/dL (11.27-16.99) 10/27/24 04:46 Hct 39.8 % (37-53) 10/27/24 04:46 MCV 81.2 fl (82-101) L 10/27/24 04:46 MCH 25.9 pg (27-33) L 10/27/24 04:46 MCHC 31.9 g/dL (30-55) 10/27/24 04:46 RDW 13.4 % (12.1-15.1) 10/27/24 04:46 Plt Count 159 10^3/cmm (157-399) 10/27/24 04:46 MPV 11.6 fL (7.4-10.4) H 10/27/24 04:46 Neut % (Auto) 79.5 % 10/27/24 04:46 Lymph % (Auto) 9.2 % 10/27/24 04:46 [place] % (Auto) 10.1 % 10/27/24 04:46 Eos % (Auto) 0.4 % 10/27/24 04:46 Baso % (Auto) 0.3 % 10/27/24 04:46 Neut # (Auto) 8.72 10^3/uL (1.8-7.7) H 10/27/24 04:46 Lymph # (Auto) 1.0 10^3/uL (0.8-4.8) 10/27/24 04:46 [place] # (Auto) 1.1 10^3/uL (0.2-0.9) H 10/27/24 04:46 Eos # (Auto) 0.0 10^3/uL (0.0-0.8) 10/27/24 04:46 Baso # (Auto) 0.0 10^3/uL (0.0-0.1) 10/27/24 04:46 Nucleated RBC % (auto) 0 % 10/27/24 04:46 Nucleated RBCs # 0.0 /100WBC 10/27/24 04:46 APTT 38.5 SECONDS (23.9-36.7) H 10/26/24 18:27 D-Dimer 0.43 ug/mLFEU (0-0.59) 10/24/24 13:21 Sodium 134 mmol/L (136-145) L 10/27/24 04:46 Potassium 4.1 mmol/L (3.5-5.1) 10/27/24 04:46 Chloride 101 mmol/L (98-107) 10/27/24 04:46 Carbon Dioxide 21 mmol/L (22-29) L 10/27/24 04:46 Anion Gap 16.1 (5-19) 10/27/24 04:46 BUN 21 mg/dL (8-23) 10/27/24 04:46 Creatinine 0.7 mg/dL (0.7-1.2) 10/27/24 04:46 GFR Calculation Not Reportable 10/27/24 04:46 Glucose 110 mg/dL (65-115) 10/27/24 04:46 Estimat Average Glucose 108 10/24/24 12:39 Hemoglobin A1c 5.4 % (4.0-6.0) 10/24/24 12:39 Calculated Osmolality 282 mOsm/kg (285-295) L 10/27/24 04:46 Lactic Acid 2.6 mmol/L (0.5-2.2) H 10/25/24 03:38 Lactic Acid (Sepsis) 2.3 mmol/L (0.5-2.2) H 10/25/24 06:49 Calcium 8.9 mg/dL (8.5-10.5) 10/27/24 04:46 Magnesium 1.6 mg/dL (1.7-2.3) L 10/25/24 03:38 Total Bilirubin 0.7 mg/dL (0.15-1.2) 10/27/24 04:46 AST 17 U/L (0-40) 10/27/24 04:46 ALT 9 U/L (0-41) 10/27/24 04:46 Alkaline Phosphatase 117 U/L (40-130) 10/27/24 04:46 Creatine Kinase 31 U/L (39-308) L 10/24/24 12:39 Troponin T Baseline 68 ng/L (0-15) H 10/25/24 03:38 Troponin T 120 Minute 58.32 ng/L (0-15) H 10/25/24 05:51 Delta Troponin T -9.68 ABS# (0-10) L 10/25/24 05:51 Troponin T Hi Sens 6Hr 57.00 ng/L (0-15) H 10/25/24 09:35 Troponin T Hi Sens 6Hr Delta -11.00 ng/L (0-12) L 10/25/24 09:35 C-Reactive Protein 173.8 mg/L (0.0-4.9) H 10/27/24 04:46 NT-Pro-B Natriuret Pep 1907 pg/mL (0-450) H 10/27/24 04:46 Total Protein 6.8 g/dL (6.6-8.7) 10/27/24 04:46 Albumin 3.1 g/dL (3.5-5.2) L 10/27/24 04:46 Globulin 3.7 g/dL (1.3-4.6) 10/27/24 04:46 Lipase 28 U/L (13-60) 10/24/24 12:39 Procalcitonin 0.41 ng/mL (0-0.5) 10/27/24 04:46 TSH 2.37 uIU/mL (0.27-4.20) 10/24/24 12:21 Urine Color Dark yellow (Yellow) A 10/24/24 14:13 Urine Appearance Turbid (CLEAR) A 10/24/24 14:13 Urine pH 8.0 (5-7) A 10/24/24 14:13 Ur Specific [place] 1.025 (1.005-1.030) 10/24/24 14:13 Urine Protein 2+ (Negative) A 10/24/24 14:13 Urine Glucose (UA) Negative (Normal) 10/24/24 14:13 Urine Ketones Trace (Negative) 10/24/24 14:13 Urine Blood Non-haemolysed trace (Negative) 10/24/24 14:13 Urine Nitrate Positive (Negative) A 10/24/24 14:13 Urine Bilirubin Negative (Negative) 10/24/24 14:13 Urine Urobilinogen 1.0 mg/dL (Negative) 10/24/24 14:13 Ur Leukocyte Esterase 3+ (Negative) A 10/24/24 14:13 Urine RBC 3-5 /hpf (0-2) 10/24/24 14:13 Urine WBC >100 /hpf (0-5) H 10/24/24 14:13 Ur Squamous Epith Cells 0-5 /hpf (0-5) 10/24/24 14:13 Amorphous Sediment Not Reportable 10/24/24 14:13 Urine Bacteria Exceeds /hpf (NONE) 10/24/24 14:13 Hyaline Casts 58.17 /lpf 10/24/24 14:13 Vancomycin Trough 10.0 ug/mL (10-15) 10/26/24 17:09 Adenovirus (PCR) Not detected (NOT DETECT) 10/24/24 14:21 C. pneumoniae DNA (PCR) Not detected (NOT DETECT) 10/24/24 14:21 Coronavirus 229E (PCR) Not detected (NOT DETECT) 10/24/24 14:21 Human Metapneumovir PCR Not detected (NOT DETECT) 10/24/24 14:21 Influenza A (H1) PCR Not detected (NOT DETECT) 10/24/24 14:21 Influ A (H1/09) PCR Not detected (NOT DETECT) 10/24/24 14:21 Influenza A (H3) PCR Not detected (NOT DETECT) 10/24/24 14:21 Influenza Type A (PCR) Not detected (NOT DETECT) 10/24/24 14:21 Influenza Type B (PCR) Not detected (NOT DETECT) 10/24/24 14:21 M. pneumoniae (PCR) Not detected (NOT DETECT) 10/24/24 14:21 Parainfluenza 1 (PCR) Not detected (NOT DETECT) 10/24/24 14:21 Parainfluenza 2 (PCR) Not detected (NOT DETECT) 10/24/24 14:21 Parainfluenza 3 (PCR) Not detected (NOT DETECT) 10/24/24 14:21 Parainfluenza 4 (PCR) Not detected (NOT DETECT) 10/24/24 14:21 RSV Type A (PCR) Not detected (NOT DETECT) 10/24/24 14:21 RSV Type B (PCR) Not detected (NOT DETECT) 10/24/24 14:21 Entero/Rhino (PCR) Not detected (NOT DETECT) 10/24/24 14:21 SARS-CoV-2 (PCR) Not detected (NOT DETECT) 10/24/24 14:21 Vitals Last Vital Signs Temp 97.4 F L 10/27/24 11:39 Pulse 92 10/27/24 11:39 Resp 17 10/27/24 11:39 BP 119/58 10/27/24 11:39 Pulse Ox 94 10/27/24 11:39 O2 Del Method Nasal Cannula 10/27/24 11:39 O2 Flow Rate 2 10/27/24 08:15 Discharge Plan Discharge Patient Disposition: Home Condition: Stable Prescriptions: New sennosides-docusate sodium [Stool Softener-Laxative] 8.6-50 mg Tablet 1 tab PO BID 30 Days Qty: 60 0RF polyethylene glycol 3350 17 gram Powder In Packet 17 g PO DAILY PRN (Reason: constipation) 30 Days Qty: 30 0RF isosorbide mononitrate 30 mg Tablet Extended Release 24 Hr 30 mg PO DAILY 30 Days Qty: 30 0RF cefdinir 300 mg capsule 300 mg PO Q12H 10 Days Qty: 20 0RF Continued acetaminophen 325 mg capsule 650 mg PO Q4H PRN (Reason: PAIN/FEVER) calcium carbonate [Tums] 200 mg calcium (500 mg) Tablet,Chewable 1,000 mg PO QID PRN (Reason: Indigestion) aspirin 81 mg Tablet,Delayed Release (Dr/Ec) 81 mg PO DAILY@08 magnesium hydroxide [Milk of Magnesia] 400 mg/5 mL Suspension 30 ml PO Q3D PRN (Reason: Constipation) bisacodyl [Dulcolax (bisacodyl)] 10 mg Suppository 10 mg CA DAILY PRN (Reason: Constipation) bisacodyl [Ducodyl (bisacodyl)] 5 mg Tablet,Delayed Release (Dr/Ec) 10 mg PO DAILY PRN (Reason: Constipation) ipratropium-albuterol 0.5 mg-3 mg(2.5 mg base)/3 mL solution for nebulization 3 ml inhalation Q6H PRN (Reason: shortness of breath or wheezing) Qty: 90 0RF atorvastatin 40 mg Tablet 40 mg PO DAILY Qty: 30 0RF clopidogrel [Plavix] 75 mg tablet 75 mg PO DAILY Qty: 30 0RF nitroglycerin 0.4 mg tablet, sublingual 0.4 mg sublingual Q5M PRN (Reason: chest pain) Qty: 20 0RF Rx Instructions: do not exceed 3 doses per episode omeprazole 20 mg Capsule,Delayed Release(Dr/Ec) 20 mg PO DAILY Changed metoprolol tartrate 25 mg Tablet 12.5 mg PO BID@0900,2100 Qty: 60 0RF Discontinued losartan 25 mg Tablet 25 mg PO DAILY isosorbide mononitrate 60 mg tablet extended release 24 hr 60 mg PO DAILY Qty: 30 0RF Discharge Orders: Discharge Order (Routine); Ordered 10/27/24 Ordered By: Yeyo Bhakta Referrals: Song Johnson MD [Physician] - 2 weeks Duane Duran MD [Referring] - 2 weeks (chronic pinzon) Dmoinic Adams DO [Primary Care Provider] - Discharge Diet: As Directed Discharge Activity: Resume usual activity Patient Instructions: Opioid Safety Activity Restrictions/Additional Instructions: - If you have recurrent chest pain please go to the emergency room -Follow-up with primary care provider -Please follow-up with Dr. Lundy in 2 weeks Discharge Attestations Time Spent in Discharge Care*: greater than 30 min Status at Discharge: Cognitive status at discharge: cognitively intact , Behavioral status at discharge: cooperative , Quality Metrics Clinical Quality Measures [ No reported AMI, CVA or VTE this stay] Coding Level of Care Code 08256 Total time (in minutes) for Discharge: 45 Diagnoses Sepsis A41.9; R65.21; N17.9 Acute renal failure type: unspecified Sepsis acute organ dysfunction status: with acute organ dysfunction Sepsis type: sepsis due to unspecified organism Severe sepsis acute organ dysfunction type: acute renal failure Severe sepsis shock status: with septic shock Complicated urinary tract infection N39.0 NSTEMI (non-ST elevated myocardial infarction) I21.4 Chest pain R07.9 Pneumonia J18.9
[2024-10-27 13:02] LABS: SARS Covid-2 Antigen Negative (Negative)
== END 2024-10-27 14:45 | disposition skilled nursing facility (03) | DRG 698 ==
LOC: ER 15:06 → MEDSURG 16:17
PROVIDERS: Internal Medicine; Admitting Provider Family Medicine; Emergency Provider Family Medicine; PCP Internal Medicine; Visit Provider Family Medicine
DX: T83.518A Infection and inflammatory reaction due to other urinary catheter, initial encounter (principal); A41.9 Sepsis, unspecified organism; R65.21 Severe sepsis with septic shock; J18.9 Pneumonia, unspecified organism; N17.9 Acute kidney failure, unspecified; J44.0 Chronic obstructive pulmonary disease with (acute) lower respiratory infection; E87.20 Acidosis, unspecified; Y73.8 Miscellaneous gastroenterology and urology devices associated with adverse incidents, not elsewhere classified; I25.2 Old myocardial infarction; F03.A0 Unspecified dementia, mild, without behavioral disturbance, psychotic disturbance, mood disturbance, and anxiety; N40.1 Benign prostatic hyperplasia with lower urinary tract symptoms; R33.8 Other retention of urine; R07.9 Chest pain, unspecified; B96.4 Proteus (mirabilis) (morganii) as the cause of diseases classified elsewhere; Z79.82 Long term (current) use of aspirin; Z79.02 Long term (current) use of antithrombotics/antiplatelets; K21.9 Gastro-esophageal reflux disease without esophagitis; Z86.16 Personal history of COVID-19; F32.5 Major depressive disorder, single episode, in full remission; Z93.1 Gastrostomy status
CPT/HCPCS: 36415; 51702; 71045; 74176; 80053; 80202; 81001; 82550; 83036; 83605; 83690; 83735; 83880; 84145; 84443; 84484; 85025; 85378; 85730; 86140; 87040; 87077; 87086; 87186; 87426; 87486; 87581; 87633; 93005; 93306; 94664; 96365; 96372; 99285; J1644; J1650; J1940; J2185; J2270; J2470; J2543; J3370; J3372; J3475; J7030

== ENCOUNTER 2024-11-06 10:34 | Emergency (ER) | payer MEDICAID, SELFPAY ==
[2024-11-06] VITALS (7 sets, daily range): BP systolic 132; BP diastolic 69–71; PULSE 68–110; RESP 17–24; TEMP 36.6; O2SAT 95–98; BMI 22.5
--- NOTE | 2024-11-06 10:42 | XR_ITS ---
WS: [id number] Portable AP upright chest, 11/06/2024 Clinical Data: cp/sob Comparison: Portable chest, 10/26/2024 Findings: Patchy opacities in the right midlung and left lung base have cleared significantly. Only a small residual opacity remains. No nodules or masses are seen. The heart is normal. The pulmonary v ascularity is not increased. No pneumonia or pneumothorax is seen. The aortic arch is minimally tortu ous. The apical pleural scarring remains the same. XR/XR chest 1V portable [id number] Impression: Significant clearing of patchy opacities in right midlung and left lung base.
--- NOTE | 2024-11-06 10:42 | ECG_ITS ---
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 Measurements Intervals [place] Rate: 85 P: 51 [place]: 156 QRS: 64 QRSD: 102 T: 67 QT: 373 QTc: 445 Interpretive Statements SINUS RHYTHM MINIMAL ST DEPRESSION [0.025+ mV ST DEPRESSION] Compared to ECG 10/27/2024 05:11:01 ST (T wave) deviation now present Sinus tachycardia no longer present Electronically Signed On 11-07-2024 09:03:05 CASUALTY UNDERWRITER by Paulino Rodriguez M.D. [email or web address]
--- NOTE | 2024-11-06 10:45 | ED_ITS ---
HPI - Chest Pain 2 General: Chief Complaint: Chest Pain Stated Complaint: chest pain Time Seen by Provider: 11/06/24 10:37 History of Present Illness: 79-year-old male presents with some ches t pressure. He reports that by hour prior to arrival he has some chest pressure and felt like there was a elephant sitting on his chest patient has had similar episodes in the past. Patient got 324 of aspirin and nitro en route. Patient is feeling better at this time. Associated symptoms: Reports dyspnea; Deny abdominal pain, fever(s), nausea or vomiting Related Data Home Medications Medication Instructions Recorded Confirmed acetaminophen 325 mg capsule 650 mg PO Q4H PRN PAIN/FEVER 11/27/19 11/06/24 calcium carbonate (Tums) 1,000 mg PO QID PRN Indigestion 12/08/20 11/06/24 aspirin 81 mg tablet,delayed 81 mg PO DAILY@08 01/26/21 11/06/24 release omeprazole 20 mg capsule,delayed 20 mg PO DAILY 08/17/24 11/06/24 release bisacodyl 10 mg rectal suppository 10 mg MA DAILY PRN Constipation 10/24/24 11/06/24 (Dulcolax (bisacodyl)) bisacodyl 5 mg tablet,delayed 10 mg PO DAILY PRN Constipation 10/24/24 11/06/24 release magnesium hydroxide 400 mg/5 mL 30 ml PO Q3D PRN Constipation 10/24/24 11/06/24 oral suspension (Milk of Magnesia) cefdinir 300 mg capsule 300 mg PO BID 11/06/24 11/06/24 sodium phosphates 19 gram-7 118 ml MA DAILY PRN Constipation 11/06/24 11/06/24 gram/118 mL enema (Fleet Enema) Previous Rx's Medication Instructions Recorded ipratropium 0.5 mg-albuterol 3 mg 3 ml inhalation Q6H PRN shortness 01/20/24 (2.5 mg base)/3 mL nebulization of breath or wheezing #90 mL soln atorvastatin 40 mg tablet 40 mg PO DAILY #30 tabs 08/15/24 nitroglycerin 0.4 mg sublingual 0.4 mg sublingual Q5M PRN chest 08/15/24 tablet pain #20 tabs isosorbide mononitrate 30 mg 30 mg PO DAILY 30 days #30 tabs 10/27/24 tablet,extended release 24 hr metoprolol tartrate 25 mg tablet 12.5 mg (1/2 x 25 mg) PO 10/27/24 BID@0900,2100 #60 tabs sennosides 8.6 mg-docusate sodium 1 tab PO BID 30 days #60 tabs 10/27/24 50 mg tablet (Stool Softener-Laxative) Allergies Allergy/AdvReac Type Severity Reaction Status Date / Time tetanus toxoid, adsorbed Allergy Unknown unknown Verified 09/03/24 08:19 Review of Systems 2 Const: Denies: fever(s) or chills Card: Reports: chest pain (Described as pressure) Resp: Reports: dyspnea GI: Denies: abdominal pain, nausea or vomiting Musc: Denies: neck pain or back pain Skin/Breast: Denies: rash or pruritus PFSH ED 2 PFSH: Medical History COPD (chronic obstructive pulmonary disease) Fever Persistent Hypoxia Delirium due to general medical condition Cystitis SVT (supraventricular tachycardia) AMS (altered mental status) Diastolic heart failure of unknown etiology GERD (gastroesophageal reflux disease) DJD (degenerative joint disease) Urinary retention Proteus infection BPH (benign prostatic hyperplasia) History of 2019 novel coronavirus disease (COVID-19) Ventricular premature beats Major depressive disorder, single episode, 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 Hoover 2015 Family History Father Cancer Grandfather Myocardial infarction Other CAD (coronary artery disease) Social History Smoking and tobacco/nicotine status: never used tobacco/nicotine Alcohol intake: never Substance/Drug Use: never Lives independently: No Marital status: Physical Exam 2 Const: COMMON NORMALS: patient oriented x3 GENERAL APPEARANCE: frail appearing Resp: COMMON NORMALS: normal respiratory effort, No use of accessory muscles and clear to auscultation bilaterally EFFORT & INSPECTION: Yes able to speak in complete sentences AUSCULTATION: clear to auscultation bilaterally Cardio: COMMON NORMALS: regular rate and regular rhythm RATE: regular rate RHYTHM: regular rhythm GI: COMMON NORMALS: Soft to palpation and non-tender PALPATION: Yes Soft to palpation Extremity: COMMON NORMALS: normal to inspection Neuro: COMMON NORMALS: patient oriented x3 and no focal motor deficits Psych: COMMON NORMALS: mental status grossly normal, cooperative and normal affect Course 2 Vital Signs: Vital signs: Vital Signs Temperature 97.8 F 11/06/24 10:42 Pulse Rate 74 11/06/24 11:42 Respiratory Rate 17 11/06/24 11:42 Blood Pressure 132/69 11/06/24 10:42 Pulse Oximetry 98 11/06/24 11:42 Oxygen Delivery Me thod Room Air 11/06/24 11:12 MDM - Chest Pain Medical Decision Making Patient's symptoms were basically resolved upon arrival to the ER. He remained symptom-free. Patient's diagnostics were ordered and reviewed. Patient has slightly elevated troponin however it was significantly less than his baseline. Patient felt that he was doing better and requested to be discharged back to the half-way. Patient was stable and will be discharged as requested. Lab Data 11/06/24 10:39 11/06/24 10:39 Radiology Impressions Chest X-Ray 11/06/24 10:42 Impression: Significant clearing of patchy opacities in right midlung and left lung base. Laboratory Results WBC 7.78 10^3/uL (3.29-11.43) 11/06/24 10:39 RBC 4.39 10^6/uL (3.85-5.65) 11/06/24 10:39 Hgb 11.50 g/dL (11.27-16.99) 11/06/24 10:39 Hct 37.8 % (37-53) 11/06/24 10:39 MCV 86.1 fl (82-101) 11/06/24 10:39 MCH 26.2 pg (27-33) L 11/06/24 10:39 MCHC 30.4 g/dL (30-55) 11/06/24 10:39 RDW 13.3 % (12.1-15.1) 11/06/24 10:39 Plt Count 351 10^3/cmm (157-399) 11/06/24 10:39 MPV 10.6 fL (7.4-10.4) H 11/06/24 10:39 Neut % (Auto) 71.8 % 11/06/24 10:39 Lymph % (Auto) 13.6 % 11/06/24 10:39 [place] % (Auto) 10.0 % 11/06/24 10:39 Eos % (Auto) 3.6 % 11/06/24 10:39 Baso % (Auto) 0.6 % 11/06/24 10:39 Neut # (Auto) 5.58 10^3/uL (1.8-7.7) 11/06/24 10:39 Lymph # (Auto) 1.1 10^3/uL (0.8-4.8) 11/06/24 10:39 [place] # (Auto) 0.8 10^3/uL (0.2-0.9) 11/06/24 10:39 Eos # (Auto) 0.3 10^3/uL (0.0-0.8) 11/06/24 10:39 Baso # (Auto) 0.1 10^3/uL (0.0-0.1) 11/06/24 10:39 Nucleated RBC % (auto) 0 % 11/06/24 10:39 Nucleated RBCs # 0.0 /100WBC 11/06/24 10:39 Sodium 141 mmol/L (136-145) 11/06/24 10:39 Potassium 3.8 mmol/L (3.5-5.1) 11/06/24 10:39 Chloride 104 mmol/L (98-107) 11/06/24 10:39 Carbon Dioxide 27 mmol/L (22-29) 11/06/24 10:39 Anion Gap 13.8 (5-19) 11/06/24 10:39 BUN 14 mg/dL (8-23) 11/06/24 10:39 Creatinine 0.8 mg/dL (0.7-1.2) 11/06/24 10:39 GFR Calculation Not Reportable 11/06/24 10:39 Glucose 96 mg/dL (65-115) 11/06/24 10:39 Calculated Osmolality 292 mOsm/kg (285-295) 11/06/24 10:39 Calcium 9.1 mg/dL (8.5-10.5) 11/06/24 10:39 Total Bilirubin 0.2 mg/dL (0.15-1.2) 11/06/24 10:39 AST 21 U/L (0-40) 11/06/24 10:39 ALT 16 U/L (0-41) 11/06/24 10:39 Alkaline Phosphatase 135 U/L (40-130) H 11/06/24 10:39 Troponin T Baseline 38 ng/L (0-15) H 11/06/24 10:39 Total Protein 7.2 g/dL (6.6-8.7) 11/06/24 10:39 Albumin 3.3 g/dL (3.5-5.2) L 11/06/24 10:39 Globulin 3.9 g/dL (1.3-4.6) 11/06/24 10:39 Coronavirus (PCR) Negative (Negative) 11/06/24 11:49 Influenza A (PCR) Negative (Negative) 11/06/24 11:49 Influenza Type B (PCR) Negative (Negative) 11/06/24 11:49 RSV (PCR) Positive (Negative) A 11/06/24 11:49 All radiology interpretation(s) finalized by discharge Discharge Plan Discharge Patient Disposition: Home Clinical Impression: Stable angina, RSV infection Prescriptions: No Action acetaminophen 325 mg capsule 650 mg PO Q4H PRN (Reason: PAIN/FEVER) calcium carbonate [Tums] 200 mg calcium (500 mg) Tablet,Chewable 1,000 mg PO QID PRN (Reason: Indigestion) aspirin 81 mg Tablet,Delayed Release (Dr/Ec) 81 mg PO DAILY@08 magnesium hydroxide [Milk of Magnesia] 400 mg/5 mL Suspension 30 ml PO Q3D PRN (Reason: Constipation) bisacodyl [Dulcolax (bisacodyl)] 10 mg Suppository 10 mg MA DAILY PRN (Reason: Constipation) bisacodyl 5 mg Tablet,Delayed Release (Dr/Ec) 10 mg PO DAILY PRN (Reason: Constipation) isosorbide mononitrate 30 mg Tablet Extended Release 24 Hr 30 mg PO DAILY 30 Days Qty: 30 0RF sennosides-docusate sodium [Stool Softener-Laxative] 8.6-50 mg Tablet 1 tab PO BID 30 Days Qty: 60 0RF metoprolol tartrate 25 mg Tablet 12.5 mg PO BID@0900,2100 Qty: 60 0RF Fleet Enema 19-7 gram/118 mL Enema 118 ml MA DAILY PRN (Reason: Constipation) cefdinir 300 mg capsule 300 mg PO BID ipratropium-albuterol 0.5 mg-3 mg(2.5 mg base)/3 mL solution for nebulization 3 ml inhalation Q6H PRN (Reason: shortness of breath or wheezing) Qty: 90 0RF atorvastatin 40 mg Tablet 40 mg PO DAILY Qty: 30 0RF nitroglycerin 0.4 mg tablet, sublingual 0.4 mg sublingual Q5M PRN (Reason: chest pain) Qty: 20 0RF Rx Instructions: do not exceed 3 doses per episode omeprazole 20 mg Capsule,Delayed Release(Dr/Ec) 20 mg PO DAILY Discharge Orders: Discharge ED (Routine); Ordered 11/06/24 Ordered By: Marcelo Oliveira Referrals: Dominic Adams DO [Primary Care Provider] - Discharge Diet: Usual diet Discharge Activity: Resume usual activity Patient Instructions: Angina (ED), Opioid Safety, Pain Management, RSV (Respiratory Syncytial Virus) Infection (ED) Activity Restrictions/Additional Instructions: Follow-up with your planning specialist and primary care provider as needed. Coding Level of Care Code ED Green Building Engineer for Rachelle Buckner
[2024-11-06 10:52] LABS: Basophils # 0.1 10^3/uL (0.0-0.1); Basophils % 0.6 %; Eosinophils # 0.3 10^3/uL (0.0-0.8); Eosinophils % 3.6 %; Hematocrit 37.8 % (37-53); Lymphocytes # 1.1 10^3/uL (0.8-4.8); Lymphocytes % 13.6 %; Mean Corpuscular HGB Conc 30.4 g/dL (30-55); Mean Corpuscular Hemoglobin 26.2 pg (27-33); Mean Corpuscular Volume 86.1 fl (82-101); Mean Platelet Volume 10.6 fL (7.4-10.4); Monocytes # 0.8 10^3/uL (0.2-0.9); Neutrophils # 5.58 10^3/uL (1.8-7.7); Neutrophils % 71.8 %; Nucleated Red Blood Cells % 0 %; Platelet Count 351 10^3/cmm (157-399); Red Blood Count 4.39 10^6/uL (3.85-5.65); Red Cell Distribution Width 13.3 % (12.1-15.1); White Blood Count 7.78 10^3/uL (3.29-11.43)
[2024-11-06 11:02] LABS: Alanine Aminotransferase 16 U/L (0-41); Albumin Level 3.3 g/dL (3.5-5.2); Alkaline Phosphatase 135 U/L (40-130); Anion Gap 13.8 (5-19); Aspartate Amino Transferase 21 U/L (0-40); Blood Urea Nitrogen 14 mg/dL (8-23); Calcium 9.1 mg/dL (8.5-10.5); Carbon Dioxide 27 mmol/L (22-29); Chloride 104 mmol/L (98-107); Creatinine Clr Calc Pharmacy 81.2046; Globulin 3.9 g/dL (1.3-4.6); Glucose 96 mg/dL (65-115); Osmolality Calculated 292 mOsm/kg (285-295); Potassium 3.8 mmol/L (3.5-5.1); Sodium 141 mmol/L (136-145); Total Bilirubin 0.2 mg/dL (0.15-1.2); Total Protein 7.2 g/dL (6.6-8.7); Troponin(5th) Baseline 38 ng/L (0-15)
--- NOTE | 2024-11-06 12:21 | ECG_ITS ---
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 Measurements Intervals [place] Rate: 71 P: 1 [place]: 156 QRS: 64 QRSD: 109 T: 58 QT: 396 QTc: 430 Interpretive Statements SINUS RHYTHM Compared to ECG 11/06/2024 10:37:08 ST (T wave) deviation no longer present Electronically Signed On 11-08-2024 23:30:22 WEB SITE DESIGNER by Paulino Rodriguez M.D. [id number]
--- NOTE | 2024-11-06 12:39 | PC.NURSE ---
spoke with [facility], and they stated that their transportation was at an appointment with another patient and she had another patient to take after this appointment. staff told me they would call me back with an update on how to get patient back. When [employer] called back they stated that transportation had 2 rides to give and wouldn't be done until 5 or 6 pm. this rn told them we would find pt a ride.
[2024-11-06 12:51] LABS: Covid PCR NEGATIVE (Negative); Influenza A NEGATIVE (Negative); Influenza B NEGATIVE (Negative)
[2024-11-06 12:57] LABS: Respiratory Syncytial Virus Ce POSITIVE (Negative)
[2024-11-06 13:02] LABS: Troponin 5 2HR 35.96 ng/L (0-15)
[2024-11-06 13:08] LABS: Troponin 5 2HR Delta -2.04 ABS# (0-10)
--- NOTE | 2024-11-06 13:17 | PC.NURSE ---
through pts visit pt was not on oxygen and o2 saturation stayed above 94% his whole visit.
== END 2024-11-06 13:08 | disposition home or self-care (01) ==
PROVIDERS: Emergency Provider Student in an Organized Health Care Education/Training Program; PCP Internal Medicine
DX: I20.89 Other forms of angina pectoris (principal); B97.4 Respiratory syncytial virus as the cause of diseases classified elsewhere; Z11.52 Encounter for screening for COVID-19; J44.9 Chronic obstructive pulmonary disease, unspecified; I50.30 Unspecified diastolic (congestive) heart failure
CPT/HCPCS: 36415; 71045; 80053; 84484; 85025; 87637; 93005; 99285

== ENCOUNTER 2024-11-19 12:48 | Emergency (ER) | payer MEDICAID, SELFPAY ==
[2024-11-19 12:50] VITALS: BP 110/59; PULSE 95; RESP 18; TEMP 36.8; O2SAT 97
--- NOTE | 2024-11-19 13:04 | XR_ITS ---
WS: [id number] Portable AP semiupright chest, 11/19/2024 Clinical Data: weakness Comparison: Portable chest, 11/06/2024 Findings: There is a patchy opacity in the retrocardiac region over the surface left diaphragm which could represent pneumonia or atelectasis. The remainder of the lungs is normal. No nodules, masses or effusions are seen. The heart is normal. The pulmonary vascularity is not increased. No pneumonia or pneumothorax is seen. Bilateral apical pleural scarring remains the same. The aortic arch is minimally tortuous. XR/XR chest 1V portable [id number] Impression: 1. Minimal patchy opacity in left lower lobe which could represent early pneumo tyree and/or atelectasis. 2. Atherosclerosis.
--- NOTE | 2024-11-19 13:12 | W.ED.GENADLT ---
HPI - General Adult General: Chief complaint: Upper Respiratory Infection Stated complaint: Lethargic, Fever Time Seen by Provider: 11/19/24 12:59 Source: patient and EMS Mode of arrival: EMS Limitations: no limitations History of Present Illness: Patient is a nice 79-year-old male presents to ED today via EMS from his mcc at [facility] for weakness and lethargy. EMS states they are aware of patient and feels he is at his baseline upon arrival. He arrives with stable vital signs. He reportedly was diagnosed with RSV on 11/06 here. Apart from [facility] reported patient was hypoxic and febrile. He arrives neither of which. He normally wears 2 L of oxygen. At time of my initial examination, patient is satting 94% on his normal 2 L. Patient was supposed to have a urology appointment today at [place] but was reportedly too weak to go. He has a chronic Pinzon catheter. Patient is able to answer all of my questions appropriately upon arrival. Can tell me his name, , address of his mcc, knows where he is, etc. Onset (ago): hour(s) Associated symptoms: Deny chest pain, dyspnea, headache(s), malaise, rash or vomiting Related Data Home Medications ?Medication ?Instructions ?Recorded ?Confirmed acetaminophen 325 mg capsule 650 mg PO Q4H PRN PAIN/FEVER 11/27/19 11/19/24 calcium carbonate (Tums) 1,000 mg PO QID PRN Indigestion 12/08/20 11/19/24 aspirin 81 mg tablet,delayed 81 mg PO DAILY@08 01/26/21 11/19/24 release omeprazole 20 mg capsule,delayed 20 mg PO DAILY 08/17/24 11/19/24 release bisacodyl 10 mg rectal suppository 10 mg FL DAILY PRN Constipation 10/24/24 11/19/24 (Dulcolax (bisacodyl)) bisacodyl 5 mg tablet,delayed 10 mg PO DAILY PRN Constipation 10/24/24 11/19/24 release magnesium hydroxide 400 mg/5 mL 30 ml PO Q3D PRN Constipation 10/24/24 11/19/24 oral suspension (Milk of Magnesia) sodium phosphates 19 gram-7 118 ml FL DAILY PRN Constipation 11/06/24 11/19/24 gram/118 mL enema (Fleet Enema) clopidogrel 75 mg tablet 75 mg PO DAILY 11/19/24 11/19/24 Previous Rx's ?Medication ?Instructions ?Recorded ipratropium 0.5 mg-albuterol 3 mg 3 ml inhalation Q6H PRN shortness 01/20/24 (2.5 mg base)/3 mL nebulization of breath or wheezing #90 mL soln atorvastatin 40 mg tablet 40 mg PO DAILY #30 tabs 08/15/24 nitroglycerin 0.4 mg sublingual 0.4 mg sublingual Q5M PRN chest 08/15/24 tablet pain #20 tabs isosorbide mononitrate 30 mg 30 mg PO DAILY 30 days #30 tabs 10/27/24 tablet,extended release 24 hr metoprolol tartrate 25 mg tablet 12.5 mg (1/2 x 25 mg) PO 10/27/24 BID@0900,2100 #60 tabs sennosides 8.6 mg-docusate sodium 1 tab PO BID 30 days #60 tabs 10/27/24 50 mg tablet (Stool Softener-Laxative) cefdinir 300 mg capsule 300 mg PO BID 10 days #20 caps 11/19/24 oseltamivir 75 mg capsule (Tamiflu) 75 mg PO BID 5 days #10 caps 11/19/24 Allergies Allergy/AdvReac Type Severity Reaction Status Date / Time tetanus toxoid, adsorbed Allergy Unknown unknown Verified 09/03/24 08:19 Review of Systems Const: Reports: fever(s) (per [facility]; afebrile here) and fatigue; Denies: chills, body aches or malaise Card: Denies: chest pain Resp: Reports: non-productive cough; Denies: dyspnea, wheezing or hemoptysis GI: Denies: abdominal pain, vomiting or diarrhea : Reports: other (reporting pain at site of pinzon-chronic pinzon); Denies: flank pain Musc: Denies: neck pain, back pain, extremity pain, extremity swelling, joint swelling or joint redness Skin/Breast: Denies: rash Neuro: Denies: headache(s) PFS ED PFSH: Medical History COPD (chronic obstructive pulmonary disease) Fever Persistent Hypoxia Delirium due to general medical condition Cystitis SVT (supraventricular tachycardia) AMS (altered mental status) Diastolic heart failure of unknown etiology GERD (gastroesophageal reflux disease) DJD (degenerative joint disease) Urinary retention Proteus infection BPH (benign prostatic hyperplasia) History of 2019 novel coronavirus disease (COVID-19) Ventricular premature beats Major depressive disorder, single episode, 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 Hoover 2015 Family History Father Cancer Grandfather Myocardial infarction Other CAD (coronary artery disease) Social History Smoking and tobacco/nicotine status: never used tobacco/nicotine Alcohol intake: never Substance/Drug Use: never Lives independently: No Marital status: Physical Exam Const: COMMON NORMALS: no acute distress, average body habitus, no limitations, healthy appearing, alert and well nourished ORIENTATION/CONSCIOUSNESS: Yes awake, Yes oriented to person and Yes oriented to place OTHER: hard of hearing HENMT: COMMON NORMALS: normocephalic and atraumatic HEAD & SCALP: normal to inspection, normocephalic and atraumatic Eye: GENERAL EYE: appearance normal, both eyes and all related structures Neck/C-Spine: COMMON NORMALS: full ROM, no lymphadenopathy and no meningeal signs Resp: COMMON NORMALS: normal respiratory effort and clear to auscultation bilaterally AUSCULTATION: clear to auscultation bilaterally Cardio: COMMON NORMALS: regular rate and regular rhythm RATE: regular rate RHYTHM: regular rhythm GI: COMMON NORMALS: Normal to inspection, nondistended, normoactive bowel sounds present, Soft to palpation, non-tender, No hepatosplenomegaly present and no masses PALPATION: Yes Soft to palpation and Yes No hepatosplenomegaly present : COMMON NORMALS: Yes no CVA tenderness BLADDER/KIDNEY EXAM: Yes no CVA tenderness OTHER: chronic indwelling pinzon with fresh blood at urethral meatus; heavy sediment noted in tubing Back/Pelvis: COMMON NORMALS: no CVA tenderness and thoracic and lumbar spine normal to inspection Extremity: GENERAL: Yes normal exam except as noted Neuro: SENSORIUM/ORIENTATION: Yes alert, Yes oriented to person and Yes oriented to place MENINGEAL SIGNS: Yes no meningeal signs Skin: COMMON NORMALS: no rashes or lesions noted GENERAL SKIN EXAM: no rashes or lesions noted Course Vital Signs: Vital signs: Vital Signs Temperature 98.3 F 11/19/24 12:50 Pulse Rate 108 H 11/19/24 15:37 Respiratory Rate 18 11/19/24 12:50 Blood Pressure 129/77 11/19/24 15:37 Pulse Oximetry 96 11/19/24 15:37 Oxygen Delivery Me thod Nasal Cannula 11/19/24 15:37 Oxygen Flow Rate 2 11/19/24 15:37 MDM - General Adult Medical Decision Making Patient here from [facility] for concerns of weakness and fevers. He arrives here afebrile. Vital signs are stable. He normally wears 2 L of oxygen and this is not had to be increased. Patient's blood work is nonactionable. He has a normal white count. Kidney functions are normal. UA is consistent with infection with 3+ blood, positive for nitrates, 3+ leukocyte esterase, 100 WBCs. Patient has a history of frequent UTIs. His last 2 cultures have grown Proteus milabilis susceptible to cephalosporins. He was given a gram of Rocephin will be placed on Cefdinir. Patient was positive for influenza A. Will place him on Tamiflu for this. CXR showing a minimal patchy opacity which could represent early pneumonia and/or atelectasis. At this time I do not have any reason to keep patient in the hospital at this time. Return ED precautions discussed. Medical Records I reviewed the patient's medical records. Lab Data I reviewed the patient's lab results. 11/19/24 13:45 11/19/24 13:45 Radiology Impressions Chest X-Ray 11/19/24 13:04 Impression: 1. Minimal patchy opacity in left lower lobe which could represent early pneumonia and/or atelectasis. 2. Atherosclerosis. Laboratory Results WBC 10.47 10^3/uL (3.29-11.43) 11/19/24 13:45 RBC 4.95 10^6/uL (3.85-5.65) 11/19/24 13:45 Hgb 12.60 g/dL (11.27-16.99) 11/19/24 13:45 Hct 43.1 % (37-53) 11/19/24 13:45 MCV 87.1 fl (82-101) 11/19/24 13:45 MCH 25.5 pg (27-33) L 11/19/24 13:45 MCHC 29.2 g/dL (30-55) L 11/19/24 13:45 RDW 14.0 % (12.1-15.1) 11/19/24 13:45 Plt Count 148 10^3/cmm (157-399) L 11/19/24 13:45 MPV 11.1 fL (7.4-10.4) H 11/19/24 13:45 Neut % (Auto) 78.9 % 11/19/24 13:45 Lymph % (Auto) 8.7 % 11/19/24 13:45 [place] % (Auto) 11.7 % 11/19/24 13:45 Eos % (Auto) 0.0 % 11/19/24 13:45 Baso % (Auto) 0.2 % 11/19/24 13:45 Neut # (Auto) 8.26 10^3/uL (1.8-7.7) H 11/19/24 13:45 Lymph # (Auto) 0.9 10^3/uL (0.8-4.8) 11/19/24 13:45 [place] # (Auto) 1.2 10^3/uL (0.2-0.9) H 11/19/24 13:45 Eos # (Auto) 0.0 10^3/uL (0.0-0.8) 11/19/24 13:45 Baso # (Auto) 0.0 10^3/uL (0.0-0.1) 11/19/24 13:45 Nucleated RBC % (auto) 0 % 11/19/24 13:45 Nucleated RBCs # 0.0 /100WBC 11/19/24 13:45 Sodium 134 mmol/L (136-145) L 11/19/24 13:45 Potassium 4.3 mmol/L (3.5-5.1) 11/19/24 13:45 Chloride 98 mmol/L (98-107) 11/19/24 13:45 Carbon Dioxide 23 mmol/L (22-29) 11/19/24 13:45 Anion Gap 17.3 (5-19) 11/19/24 13:45 BUN 22 mg/dL (8-23) 11/19/24 13:45 Creatinine 1.2 mg/dL (0.7-1.2) 11/19/24 13:45 GFR Calculation Not Reportable 11/19/24 13:45 Glucose 101 mg/dL (65-115) 11/19/24 13:45 Calculated Osmolality 281 mOsm/kg (285-295) L 11/19/24 13:45 Calcium 8.9 mg/dL (8.5-10.5) 11/19/24 13:45 Total Bilirubin 0.3 mg/dL (0.15-1.2) 11/19/24 13:45 AST 37 U/L (0-40) 11/19/24 13:45 ALT 16 U/L (0-41) 11/19/24 13:45 Alkaline Phosphatase 136 U/L (40-130) H 11/19/24 13:45 Total Protein 7.1 g/dL (6.6-8.7) 11/19/24 13:45 Albumin 3.4 g/dL (3.5-5.2) L 11/19/24 13:45 Globulin 3.7 g/dL (1.3-4.6) 11/19/24 13:45 Urine Color Dark yellow (Yellow) A 11/19/24 13:50 Urine Appearance Turbid (CLEAR) A 11/19/24 13:50 Urine pH 7.0 (5-7) 11/19/24 13:50 Ur Specific [place] 1.022 (1.005-1.030) 11/19/24 13:50 Urine Protein 3+ (Negative) A 11/19/24 13:50 Urine Glucose (UA) Negative (Normal) 11/19/24 13:50 Urine Ketones Trace (Negative) 11/19/24 13:50 Urine Blood 3+ (Negative) A 11/19/24 13:50 Urine Nitrate Positive (Negative) A 11/19/24 13:50 Urine Bilirubin Negative (Negative) 11/19/24 13:50 Urine Urobilinogen 1.0 mg/dL (Negative) 11/19/24 13:50 Ur Leukocyte Esterase 3+ (Negative) A 11/19/24 13:50 Urine RBC >100 /hpf (0-2) H 11/19/24 13:50 Urine WBC >100 /hpf (0-5) H 11/19/24 13:50 Ur Squamous Epith Cells 0-5 /hpf (0-5) 11/19/24 13:50 Amorphous Sediment Not Reportable 11/19/24 13:50 Urine Bacteria 4+ /hpf (NONE) H 11/19/24 13:50 Hyaline Casts 64.23 /lpf 11/19/24 13:50 Fine Granular Casts 0-4 /lpf H 11/19/24 13:50 Coronavirus (PCR) Negative (Negative) 11/19/24 13:21 Influenza A (PCR) Positive (Negative) 11/19/24 13:21 Influenza Type B (PCR) Negative (Negative) 11/19/24 13:21 RSV (PCR) Negative (Negative) 11/19/24 13:21 All radiology interpretation(s) finalized by discharge Discharge Plan Discharge Patient Disposition: Home Clinical Impression: Influenza A UTI (urinary tract infection) due to urinary indwelling Pinzon catheter Qualifiers: Indwelling urinary catheter type: indwelling urethral catheter Encounter type: initial encounter Qualified Code(s): T83.511A - Infection and inflammatory reaction due to indwelling urethral catheter, initial encounter Condition: Stable Prescriptions: New oseltamivir [Tamiflu] 75 mg capsule 75 mg PO BID 5 Days Qty: 10 0RF cefdinir 300 mg capsule 300 mg PO BID 10 Days Qty: 20 0RF No Action acetaminophen 325 mg capsule 650 mg PO Q4H PRN (Reason: PAIN/FEVER) calcium carbonate [Tums] 200 mg calcium (500 mg) Tablet,Chewable 1,000 mg PO QID PRN (Reason: Indigestion) aspirin 81 mg Tablet,Delayed Release (Dr/Ec) 81 mg PO DAILY@08 magnesium hydroxide [Milk of Magnesia] 400 mg/5 mL Suspension 30 ml PO Q3D PRN (Reason: Constipation) bisacodyl [Dulcolax (bisacodyl)] 10 mg Suppository 10 mg FL DAILY PRN (Reason: Constipation) bisacodyl 5 mg Tablet,Delayed Release (Dr/Ec) 10 mg PO DAILY PRN (Reason: Constipation) isosorbide mononitrate 30 mg Tablet Extended Release 24 Hr 30 mg PO DAILY 30 Days Qty: 30 0RF sennosides-docusate sodium [Stool Softener-Laxative] 8.6-50 mg Tablet 1 tab PO BID 30 Days Qty: 60 0RF metoprolol tartrate 25 mg Tablet 12.5 mg PO BID@0900,2100 Qty: 60 0RF Fleet Enema 19-7 gram/118 mL Enema 118 ml FL DAILY PRN (Reason: Constipation) ipratropium-albuterol 0.5 mg-3 mg(2.5 mg base)/3 mL solution for nebulization 3 ml inhalation Q6H PRN (Reason: shortness of breath or wheezing) Qty: 90 0RF atorvastatin 40 mg Tablet 40 mg PO DAILY Qty: 30 0RF nitroglycerin 0.4 mg tablet, sublingual 0.4 mg sublingual Q5M PRN (Reason: chest pain) Qty: 20 0RF Rx Instructions: do not exceed 3 doses per episode omeprazole 20 mg Capsule,Delayed Release(Dr/Ec) 20 mg PO DAILY clopidogrel 75 mg tablet 75 mg PO DAILY Discharge Orders: Discharge ED (Routine); Ordered 11/19/24 Ordered By: Jazmin Phan Referrals: Dominic Adams DO [Primary Care Provider] - Patient Instructions: Influenza (DC), Catheter-associated Urinary Tract Infection (ED) Activity Restrictions/Additional Instructions: Patient was positive for influenza A. He is not requiring any additional oxygen apart from his baseline. He will be placed on Tamiflu. He was also found to have a UTI so will be placed on antibiotics for this. He needs to follow up with his urologist as soon as possible. Print Language: Bulgarian Coding Level of Care Code ED Computer Support Specialist Instructor for Rachelle Buckner
[2024-11-19 13:36] VITALS: BP 115/64; PULSE 81; O2SAT 96
[2024-11-19 13:59] LABS: Basophils % 0.2 %; Hematocrit 43.1 % (37-53); Lymphocytes # 0.9 10^3/uL (0.8-4.8); Lymphocytes % 8.7 %; Mean Corpuscular HGB Conc 29.2 g/dL (30-55); Mean Corpuscular Hemoglobin 25.5 pg (27-33); Mean Corpuscular Volume 87.1 fl (82-101); Mean Platelet Volume 11.1 fL (7.4-10.4); Monocytes # 1.2 10^3/uL (0.2-0.9); Monocytes % 11.7 %; Neutrophils # 8.26 10^3/uL (1.8-7.7); Neutrophils % 78.9 %; Nucleated Red Blood Cells % 0 %; Platelet Count 148 10^3/cmm (157-399); Red Blood Count 4.95 10^6/uL (3.85-5.65); White Blood Count 10.47 10^3/uL (3.29-11.43)
[2024-11-19 14:06] LABS: Bilirubin Urine Negative (Negative); Blood Urine 3+ (Negative); Glucose Urine UA Negative (Normal); Ketones Urine Trace (Negative); Leukocyte Esterase Urine 3+ (Negative); Nitrate Urine Positive (Negative); Protein Urine 3+ (Negative); Specific Gravity, Urine 1.022 (1.005-1.030); Urine Appearance Turbid (CLEAR)
[2024-11-19 14:11] LABS: Add Urine Microscopic? YES; Bacteria Urine 4+ /hpf; Hyaline Casts Urine 64.23 /lpf; RBC Urine >100 /hpf (0-2); Squamous Epithelial Cell Urine 0-5 /hpf (0-5); WBC Urine >100 /hpf (0-5)
[2024-11-19 14:22] LABS: Alanine Aminotransferase 16 U/L (0-41); Albumin Level 3.4 g/dL (3.5-5.2); Alkaline Phosphatase 136 U/L (40-130); Anion Gap 17.3 (5-19); Aspartate Amino Transferase 37 U/L (0-40); Blood Urea Nitrogen 22 mg/dL (8-23); Calcium 8.9 mg/dL (8.5-10.5); Carbon Dioxide 23 mmol/L (22-29); Chloride 98 mmol/L (98-107); Creatinine Clr Calc Pharmacy 45.1548; Globulin 3.7 g/dL (1.3-4.6); Glucose 101 mg/dL (65-115); Osmolality Calculated 281 mOsm/kg (285-295); Potassium 4.3 mmol/L (3.5-5.1); Sodium 134 mmol/L (136-145); Total Bilirubin 0.3 mg/dL (0.15-1.2); Total Protein 7.1 g/dL (6.6-8.7)
[2024-11-19 14:30] VITALS: BP 126/60; PULSE 98; O2SAT 93
[2024-11-19 14:36] LABS: Covid PCR NEGATIVE (Negative); Influenza A POSITIVE (Negative); Influenza B NEGATIVE (Negative); Respiratory Syncytial Virus Ce NEGATIVE (Negative)
[2024-11-19 15:01] LABS: Urine Color Dark Yellow (Yellow)
[2024-11-19 15:02] LABS: UA Slide Review UA Slide Review Perf
[2024-11-19 15:03] LABS: Add Urine Culture? Yes; Fine Granular Casts Urine 0-4 /lpf
--- NOTE | 2024-11-19 15:21 | PC.NURSE ---
[facility] called, spoke to Valeria, Gave pt report and update, and aware of pt to be discharged.
[2024-11-19 15:37] VITALS: BP 129/77; PULSE 108; O2SAT 96
[2024-11-19] MEDS: cefTRIAXone 1,000 MG in water for injection-sterile 2.1 ML 2.1 MG IM (15:40)
[2024-11-19 18:00] VITALS: BP 126/73; PULSE 101; O2SAT 95
[2024-11-19 19:52] VITALS: BP 134/74; PULSE 100; O2SAT 97
== END 2024-11-19 19:50 | disposition home or self-care (01) ==
PROVIDERS: Emergency Provider Physician Assistant; PCP Internal Medicine
DX: J10.1 Influenza due to other identified influenza virus with other respiratory manifestations (principal); T83.511A Infection and inflammatory reaction due to indwelling urethral catheter, initial encounter; X58.XXXA Exposure to other specified factors, initial encounter; Z79.82 Long term (current) use of aspirin; Z11.52 Encounter for screening for COVID-19; J44.9 Chronic obstructive pulmonary disease, unspecified; I50.30 Unspecified diastolic (congestive) heart failure
CPT/HCPCS: 36415; 51702; 71045; 80053; 81001; 85025; 87077; 87086; 87186; 87637; 96372; 99284; J0696

== ENCOUNTER 2024-12-17 09:30 | Emergency (ER) | payer MEDICAID, SELFPAY ==
[2024-12-17 09:34] VITALS: BP 156/87; PULSE 64; RESP 16; TEMP 36.4; O2SAT 97; BMI 24.4
--- NOTE | 2024-12-17 09:44 | PC.PHAR ---
Addendum entered by Daija Peterson 12/17/24 09:58: Discharged again from [facility] 12/17/24 Original Note: Pt is current resident at [facility] again
--- NOTE | 2024-12-17 09:52 | ECG_ITS ---
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 Measurements Intervals [place] Rate: 60 P: 57 WA: 176 QRS: 66 QRSD: 93 T: 56 QT: 398 QTc: 400 Interpretive Statements SINUS RHYTHM Compared to ECG 11/06/2024 12:21:44 No significant changes Electronically Signed On 12-20-2024 18:09:09 [employer] by Paulino Rodriguez M.D. [email or web address]
--- NOTE | 2024-12-17 09:53 | XR_ITS ---
WS: [id number] XR chest 1V portable [id number] REASON FOR EXAM: Psychiatric work up FINDINGS: The chest is unchanged compared to the previous examination of 11/19/2024. Mild tortuosity and ectasia of the thoracic aorta. Normal heart size. Calcified granulomatous disease bilaterally. Chronic reticular interstitial lung opacities in both lower lobes. No acute pulmonary parenchymal or pleural abnormality. Moderate degenerative spondylosis in the mid and lower thoracic spine. XR/XR chest 1V portable [id number] IMPRESSION: Stable chest without acute abnormality.
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
[2024-12-17 10:41] LABS: Bilirubin Urine Negative (Negative); Blood Urine Trace (Negative); Glucose Urine UA Negative (Normal); Ketones Urine Negative (Negative); Leukocyte Esterase Urine 3+ (Negative); Nitrate Urine Positive (Negative); Protein Urine 2+ (Negative); Specific Gravity, Urine 1.021 (1.005-1.030); Urine Appearance Turbid (CLEAR); Urine Color Yellow (Yellow); Urobilinogen Urine 0.2 mg/dL (Negative); pH Urine >=9.0 (5-7)
[2024-12-17 10:57] LABS: Amphetamines Screen Urine Negative (Negative); Barbiturates Screen Urine Negative (Negative); Benzodiazepines Screen Urine Negative (Negative); Cocaine Screen Urine Negative (Negative); Opiate Screen Urine Negative (Negative); PCP Screen Urine Negative (Negative); THC Screen Urine Negative (Negative)
[2024-12-17 11:06] LABS: Basophils # 0.1 10^3/uL (0.0-0.1); Basophils % 0.8 %; Eosinophils # 0.3 10^3/uL (0.0-0.8); Eosinophils % 3.1 %; Hematocrit 38.7 % (37-53); Lymphocytes # 1.1 10^3/uL (0.8-4.8); Lymphocytes % 13.4 %; Mean Corpuscular HGB Conc 30.2 g/dL (30-55); Mean Corpuscular Hemoglobin 25.3 pg (27-33); Mean Corpuscular Volume 83.8 fl (82-101); Mean Platelet Volume 10.6 fL (7.4-10.4); Monocytes # 0.7 10^3/uL (0.2-0.9); Monocytes % 8.4 %; Neutrophils # 6.18 10^3/uL (1.8-7.7); Neutrophils % 73.9 %; Nucleated Red Blood Cells % 0 %; Platelet Count 197 10^3/cmm (157-399); Red Blood Count 4.62 10^6/uL (3.85-5.65); Red Cell Distribution Width 14.3 % (12.1-15.1); White Blood Count 8.36 10^3/uL (3.29-11.43)
[2024-12-17 11:33] LABS: Alanine Aminotransferase 11 U/L (0-41); Albumin Level 3.3 g/dL (3.5-5.2); Alkaline Phosphatase 122 U/L (40-130); Aspartate Amino Transferase 20 U/L (0-40); Blood Urea Nitrogen 15 mg/dL (8-23); Calcium 9.1 mg/dL (8.5-10.5); Carbon Dioxide 27 mmol/L (22-29); Chloride 102 mmol/L (98-107); Creatinine Clr Calc Pharmacy 83.8949; Globulin 3.9 g/dL (1.3-4.6); Glucose 93 mg/dL (65-115); Osmolality Calculated 285 mOsm/kg (285-295); Sodium 137 mmol/L (136-145); Thyroid Stimulating Hormone 2.93 uIU/mL (0.27-4.20); Total Bilirubin 0.2 mg/dL (0.15-1.2); Total Protein 7.2 g/dL (6.6-8.7)
[2024-12-17 11:35] LABS: Acetaminophen < 5.0 ug/mL (10-30); Alcohol Level < 10 mg/dL (0-10); Salicylate < 0.3 mg/dL (3-10)
[2024-12-17 11:36] LABS: Anion Gap 12.7 (5-19); Potassium 4.7 mmol/L (3.5-5.1)
[2024-12-17 11:48] LABS: Bacteria Urine 4+ /hpf; Mucus Urine 3+ /hpf; Squamous Epithelial Cell Urine 0-4 /hpf (0-5); WBC Urine 40-55 /hpf (0-5)
[2024-12-17 11:49] LABS: Add Urine Culture? Yes; Amorphous Sediment Urine TRACE /hpf
[2024-12-17 12:02] LABS: Influenza A NEGATIVE (Negative); Influenza B NEGATIVE (Negative); Respiratory Syncytial Virus Ce NEGATIVE (Negative); SARS-CoV-2 PCR NEGATIVE (Negative)
[2024-12-17] MEDS: sodium chloride 0.9% 1,000 ML 999 ML IV (12:38)
[2024-12-17] MEDS: cefTRIAXone 1,000 mg SDV 1000 MG IVP (12:38)
--- NOTE | 2024-12-17 12:38 | PC.NURSE ---
pt offered lunch tray, denies at this time. pt watching TV, states comfortable. respirations even and unlabored
--- NOTE | 2024-12-17 15:10 | PC.NURSE ---
called report to [place]. DECLAN Choe denies any further needs/questions at end of report.
[2024-12-17 15:13] VITALS: BP 147/77; PULSE 87; O2SAT 99
--- OUTSIDE RECORDS SUMMARY | 2024-12-17 15:54 | XMS_ITS | Encounter Summary ---
Author Organization [facility] Address [address] [place] [address] Care Team Providers Care Aviation Ordnance Officer Name Role Phone Unavailable Primary Care Provider Unavailabl e Encounter Details Date Type Department Care Team (Late st Contact Info) Description 03/02/2021 Lab Requisition [facility] [address] [place] [address] [place] [address] [place] [address] Social History Tobacco Use Types Packs/Day Years Used Date Smoking Tobacco: Never Assessed Sex and Gender Information Value Date Recorded Sex Assigned at Not on file Legal Sex Male 3:02 PM CDT Gender Identity Not on file Sexual Orientation Not on file documented as of this encounter Plan of Treatment Not on file documented as of this encounter Procedures Procedure Name Priority Date/Time Associated Diagnosis Comments COMPREHENSIVE METABOLIC PANEL Stat 03/02/2021 6:32 AM CDT documented in this encounter Results * (ABNORMAL) COMPREHENSIVE METABOLIC PANEL (03/02/2021 6:32 AM CDT) SODIUM 162(HH) 136 - 145 mmol/L 03/02/2021 9:16 AM CDT [facility] Comment: The following critical results were called to Angelica Temple and read back verified. Sodium: 162 mmol/L High Panic (Ref. Range: 136-14 POTASSIUM 3.8 3.5 - 5.1 mmol/L 03/02/2021 9:16 AM CDT [facility] CHLORIDE 126(H) 98 - 107 mmol/L 03/02/2021 9:16 AM CDT [facility] CO2 25 22 - 29 mmol/L 03/02/2021 9:16 AM [facility] CALCIUM 8.8 8.8 - 10.2 mg/dL 03/02/2021 9:16 AM [facility] BUN 58(H) 8 - 23 mg/dL 03/02/2021 9:16 AM [facility] CREATININE 1.57(H) 0.67 - 1.17 mg/dL 03/02/2021 9:16 AM [facility] Comment:The GFR result is no t clinically significant on patients <18 or >70 years of age. GLUCOSE 109(H) 74 - 99 mg/dL 03/02/2021 9:16 AM [facility] TOTAL PROTEIN 6.2(L) 6.4 - 8.3 g/dL 03/02/2021 9:16 AM [facility] ALBUMIN 2.7(L) 3.5 - 5.2 g/dL 03/02/2021 9:16 AM [facility] BILIRUBIN TOTAL 0.6 0.2 - 1.0 mg/dL 03/02/2021 9:16 AM [facility] ALKALINE PHOSPHATASE 133(H) 40 - 129 U/L 03/02/2021 9:16 AM [facility] AST 13 10 - 50 U/L 03/02/2021 9:16 AM [facility] ALT 10 <=50 U/L 03/02/2021 9:16 AM [facility] GFR 43 mL/min/1. 73 sq meter 03/02/2021 9:16 AM [facility] Comment: eGFR has not been validated for use in the elderly (> 70 years of age), women, patients with serious co-morbid conditions, or persons with extremes of body size or muscle mass and should also be interpreted with caution in patients with acute kidney failure, dialysis dependent patients, patients reporting exceptional dietary intake (e.g. vegetarian diet, high protein diets, creatine supplementation), and patients with severe liver disease. Based on National Kidney Disease Education Program If patient is , please refer to the GFR result. GFR, 52 mL/min/1. 73 sq meter 03/02/2021 9:16 AM CDT [facility] ANION GAP 11 9 - 20 mmol/L 03/02/2021 9:16 AM CDT [facility] Blood Collection / Unknown 03/02/2021 6:32 AM CDT 03/02/2021 8:10 AM CDT us Girish Campos MD CHEMISTRY ORDERABLES Final Resu lt [facility] [address] [place] [address] documented in this encounter Visit Diagnoses Not on filedocumented in this encounter
--- OUTSIDE RECORDS SUMMARY | 2024-12-17 15:54 | XMS_ITS | Continuity of Care Document ---
Author Organization [facility] Address [address] [place] [address] Care Team Providers Care Railroad Dining Car Steward/Stewardess Name Role Phone Dr. Dominic Adams DO Attending Physician [phone] Medications Medication Frequency Instructions Diagnosis Start Date End Date Last Administered acetaminophen 325 mg tablet Every 4 Hours - PRN 2 tabs (650mg), oral, Every 4 Hours - PRN, for pain or fever 10/27/19 25 11/20/2024 11:34 AM aspirin 81 mg tablet,delayed release (/EC) Once A Day 1 tab, oral, Once A Day 10/27/19 25 11/21/2024 06:36 AM atorvastatin 40 mg tablet Once A Day 1 tab, oral, Once A Day 10/27/19 25 11/21/2024 06:36 AM calcium carbonate 200 mg calcium (500 mg) tablet,chewable Four Times A Day - PRN 2 tabs, oral, Four Times A Day - PRN, TI for Tums, for indigestion 10/27/19 25 11/20/2024 11:34 AM cefdinir 300 mg capsule Twice A Day 1, oral, Twice A Day 11/19/19 25 025 11/21/2024 06:36 AM clopidogrel 75 mg tablet Once A Day 1 tab d, oral, Once A Day 10/27/19 25 11/21/2024 06:36 AM Dulcolax (bisacodyl) (bisacodyl) 10 mg suppository Once A Day - PRN 1 suppository, rectal, Once A Day - PRN, Give rectally if can't take p/o, if no results from MOM 10/27/19 25 Dulcolax (bisacodyl) (bisacodyl) 5 mg tablet,delayed release (DR/EC) Once A Day - PRN 2 tabs/10mg, oral, Once A Day - PRN, Give if no results from MOM 10/27/19 25 Fleet Enema (sodium phosphates) 19-7 gram/118 mL enema Once A Day - PRN 1 application, rectal, Once A Day - PRN, Give fleets if no results from MOM and Dulcolax 10/28/19 25 ipratropium-albut elvin 0.5 mg-3 mg(2.5 mg base)/ solution for nebulization Every 6 Hours - PRN 1 meb, inhalation, Every 6 Hours - PRN, for sob or wheezing 10/27/19 25 isosorbide mononitrate 30 mg tablet extended release 24 hr Once A Day 1 tab, oral, Once A Day 10/27/19 25 11/21/2024 06:36 AM metoprolol tartrate 25 mg tablet Twice A Day 0.5 tab (12.5mg), oral, Twice A Day 10/27/19 25 11/21/2024 06:36 AM Milk of Magnesia (magnesium hydroxide) 400 mg/5 mL suspension Every 72 Hours - PRN 30 ml, oral, Every 72 Hours - PRN, if no BM in 3 days DO NOT GIVE TO RENAL PATIENTS--GO TO DULCOLAX ORDERS 10/27/19 25 nitroglycerin 0.4 mg tablet, sublingual Three Times A Day - PRN 1 tab, sublingual, Three Times A Day - PRN, every 5 minutes x 3 for chest pain, not to exceed 3 doses in 15 minutes, if pain persists, seek medical attention 10/27/19 25 omeprazole 20 mg capsule,delayed release(DR/EC) Once A Day 1 cap, oral, Once A Day 10/27/19 25 11/21/2024 06:36 AM ondansetron 4 mg tablet,disintegra ting Three Times A Day - PRN 1, oral, Three Times A Day - PRN, 1 TID PRN CLINICAL INDICATIONS: N/V 11/13/19 25 11/19/2024 07:47 AM oseltamivir 75 mg capsule Twice A Day 1, oral, Twice A Day 11/19/1911/21/2024 06:36 AM sennosides-docusa te sodium 8.6-50 mg tablet Twice A Day 1 tab, oral, Twice A Day 10/27/1911/21/2024 06:36 AM acetaminophen 325 mg tablet Every 4 Hours - PRN 2 tabs (650mg), oral, Every 4 Hours - PRN, for pain or fever 09/30/2010/22/2024 07:58 PM aspirin 81 mg tablet,delayed release (DR/EC) Once A Day 1 tab, oral, Once A Day 09/30/2010/24/2024 07:01 AM atorvastatin 40 mg tablet Once A Day 1 tab, oral, Once A Day 09/30/20 025 10/24/2024 07:01 AM Darrick-Gest Antacid (calcium carbonate) 200 mg calcium (500 mg) tablet,chewable Four Times A Day - PRN 2 tabs, oral, Four Times A Day - PRN, for indigestion 10/02/20 025 10/22/2024 07:58 PM cefdinir 300 mg capsule Twice A Day 1 cap, oral, Twice A Day, for 10 days 10/27/1911/06/2024 08:41 PM clopidogrel 75 mg tablet Once A Day 1 tab, oral, Once A Day 09/30/20 025 10/24/2024 07:01 AM Dulcolax (bisacodyl) (bisacodyl) 5 mg tablet,delayed release (DR/EC) Once A Day - PRN 2 tabs/10mg, oral, Once A Day - PRN, Give if no results from MOM 09/30/20 Dulcolax (bisacodyl) (bisacodyl) 10 mg suppository Once A Day - PRN 1 suppository, rectal, Once A Day - PRN, Give rectally if can't take p/o, if no results from MOM 09/30/20 025 Fleet Enema (sodium phosphates) 19-7 gram/118 mL enema Once A Day 1 application, rectal, Once A Day, Give fleets if no results from MOM and Dulcolax 10/27/19 025 ipratropium-albut elvin 0.5 mg-3 mg(2.5 mg base)/ solution for nebulization Every 6 Hours - PRN 1 meb, inhalation, Every 6 Hours - PRN, for sob or wheezing 09/30/20 isosorbide mononitrate 60 mg tablet extended release 24 hr Once A Day 1 tab, oral, Once A Day 09/30/20 025 10/24/2024 07:01 AM losartan 25 mg tablet Once A Day 1 tab, oral, Once A Day 09/30/2010/24/2024 07:01 AM metoprolol tartrate 25 mg tablet Twice A Day 1 tab, oral, Twice A Day 09/30/20 025 10/24/2024 07:01 AM Milk of Magnesia (magnesium hydroxide) 400 mg/5 mL suspension Every 72 Hours - PRN 30 ml, oral, Every 72 Hours - PRN, if no BM in 3 days DO NOT GIVE TO RENAL PATIENTS--GO TO GEOFFLAX ORDERS 09/30/20 025 nitroglycerin 0.4 mg tablet, sublingual Three Times A Day - PRN 1 tab, sublingual, Three Times A Day - PRN, every 5 minutes x 3 for chest pain, not to exceed 3 doses in 15 minutes, if pain persists, seek medical attention 09/30/20 025 omeprazole 20 mg capsule,delayed release(DR/EC) Once A Day 1 cap, oral, Once A Day 09/30/20 025 10/23/2024 06:30 AM ondansetron 4 mg tablet,disintegra ting Three Times A Day 1, oral, Three Times A Day 11/10/19 025 11/13/2024 08:28 PM ondansetron 4 mg tablet,disintegra ting Three Times A Day 1, oral, Three Times A Day, 1 TID PRN CLINICAL INDICATIONS: N/V 11/13/19 25 025 Tylenol (acetaminophen) 325 mg tablet Every 6 Hours - PRN 2 tabs/650mg, oral, Every 6 Hours - PRN, as needed for PRN pain/increased temp May give rectally if necessary 09/30/20 24 025 Tylenol (acetaminophen) 325 mg tablet Every 6 Hours - PRN 2 tabs/650mg, oral, Every 6 Hours - PRN, as needed for PRN pain/increased temp May give rectally if necessary 10/27/19 25 025 Problems Code Type Problem ICD Code Effective Date Status ICD-10 Chronic obstructive pulmonary disease, unspecified J44.9 06/03/2016 Active ICD-10 Pneumonia, unspecified organism J18.9 05/15 Active ICD-10 Non-ST elevation (NS FISH) myocardial infarction I21.4 10/27/2024 Active ICD-10 intermission coordinator (current) use of antithrombotics/antiplatelets Z79.02 08/15/2024 Active ICD-10 Acute and chronic re spiratory failure, unspecified whether with hypoxia or hypercapnia J96.20 08/17/2023 Active ICD-10 Respiratory syncytia l virus as the cause of diseases classified elsewhere B97.4 11/06/2024 Active ICD-10 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 11/06/2024 Active ICD-10 Personal history of transient ischemic attack (TIA), and cerebral infarction without residual deficits Z86.73 09/13/2023 Active ICD-10 intermission coordinator (current) use of aspirin Z79.82 1 Active ICD-10 Ventricular premature depolarization I49.3 02/22/2021 Active ICD-10 Hypertensive heart d isease with heart failure I11.0 09/13/2023 Active ICD-10 Chronic diastolic (congestive) heart failure I5 0.32 08/17/2023 Active ICD-10 Alzheimer's disease with late onset G30.1 08/09/2017 Active ICD-10 Dementia in other di seases classified elsewhere, unspecified severity, without behavioral disturbance, psychotic disturbance, mood disturbance, and anxiety F02.80 07/25/2022 Active ICD-10 Dysphagia, oropharyngeal phase R13.12 12/11 Active ICD-10 Unspecified osteoarthritis, unspecified site M1 9.90 05/24/2016 Active ICD-10 Dorsalgia, unspecified M54.9 07/12/2016 Ac tive ICD-10 History of falling Z91.81 12/17/2020 Active ICD-10 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 9 10/21/2024 Active ICD-10 Impulse disorder, unspecified F63.9 2023 Active ICD-10 Problem related to lifestyle, unspecified Z72.9 10/10/2017 Active ICD-10 Old myocardial infarction I25.2 09/19/2024 Active ICD-10 Do not resuscitate Z66 08/31/2023 Active Current Allergies and Intolerances Category Substance Type Reaction Severity Begin Date Status Drug allergy Tetanus Vaccines and Toxoid Allergy 02/03/2019 Active Vital Signs Height: 74.0 in Date / Time Temperature Pulse (per minute) Respirations (per minute) Systolic BP (mmHg) Diastolic BP (mmHg) O2 Saturation (%) Weight BMI 2024 06:36 AM 98.6 F 77 18 128 62 2024 06:35 AM 94.0 2024 08:28 PM 98.0 F 70 16 132 80 2024 08:27 PM 95.0 2024 09:26 AM 151.4 lbs 19.4 4 2024 07:00 AM 98.6 F 75 19 122 68 93.0 2024 09:18 PM 98.8 F 80 20 118 64 2024 09:17 PM 92.0 2024 08:09 PM 98.4 F 77 18 120 60 93.0 2024 10:47 AM 98.0 F 76 20 118 63 95.0 2024 10:19 PM 97.1 F 79 21 113 55 96.0 2024 03:07 PM 159.0 lbs 20.4 1 2024 08:52 AM 68 18 138 61 2024 08:50 AM 98.0 F 2024 08:49 AM 92.0 2024 10:04 PM 98.0 F 70 16 126 80 2024 10:02 PM 95.0 2024 09:59 AM 97.9 F 86 20 127 69 2024 09:58 AM 93.0 2024 03:02 PM 157.0 lbs 20.1 6 2024 10:01 AM 157.0 lbs 20.1 6 2024 07:21 AM 166.6 lbs 21.3 9 2024 08:54 AM 166.3 lbs 21.3 5 2024 07:31 AM 166.0 lbs 21.3 1 2024 03:27 PM 166.8 lbs 21.4 1 2024 02:07 PM 167.1 lbs 21.4 5 2024 06:23 AM 166.8 lbs 21.4 1 2023 11:39 AM 167.8 lbs 21.5 4 2023 05:13 PM 167.8 lbs 21.5 4 2023 11:20 AM 168.0 lbs 21.5 7 2023 02:44 PM 168.4 lbs 21.6 2 2023 11:12 AM 164.6 lbs 21.1 3 Advance Directives Directive Note Do Not Resuscitate (DNR) Insurance Providers Payer Policy type Group Name Group number Policy ID Address Ph one Medicaid [place] Medicaid ([facility]) [id number] Ph one: Fax: Patient Liability Private Phone: Fax: Private Private Phone: Fax: Private Interest Private Phone: Fax: Immunizations Vaccine Customer Insight Analyst Date Status Dose Series Complete COVID-19 Vaccine Pfizer-BioNTech 09/09/2024 Completed 4 COVID-19 Vaccine comirnaty 02/14/2024 Completed 4 COVID-19 Vaccine Moderna 08/31/2022 Completed Booster Bivalent COVID-19 Vaccine Moderna 04/10/2022 Completed 2 Ye s COVID-19 Vaccine Moderna 09/02/2021 Completed Booster Ye s COVID-19 Vaccine Moderna 11/08/2020 Completed 2 Ye s COVID-19 Vaccine Moderna 10/11/2020 Completed 1 No Influenza Vaccine alfuria 07/24/2024 Completed Influenza Vaccine 08/03/2023 Completed Influenza Vaccine Afluria 07/18/2022 Completed Influenza Vaccine Afluria Quad 07/21/2021 Completed Influenza Vaccine 08/18/2020 Completed Influenza Vaccine 08/05/2019 Completed Influenza Vaccine 07/23/2018 Completed Pneumococcal Vaccine 07/18/2022 Completed Pneumococcal Vaccine Pneumovax 23 07/21/2021 Completed 1 Pneumococcal Vaccine 06/25/2019 Refused Pneumococcal Vaccine 02/03/2019 Refused Pneumococcal Vaccine 02/04/2021 Refused RSV Vaccine Pfizer 08/13/2023 Completed Procedures Not available for this record Results Not available for this record Goals Goal Date Will participate in at least one group activity of preference weekly through next assessment 01/21/2025 Ben will continue to show appropriate behavior around the facility and around young girls. 01/21/2025 Will cease asking visitors, peers, and staff for money or to order pizza or other favors 120days from update/last review 01/21/2025 Travon's wishes will be followed and respe cted. 01/21/2025 Will have a BM at least ever y 3 days for 120 days since update/last review AND/OR will not experience any complications r/t to colostomy for 120 days from update/ last review AND/OR Will not experience any GI complications for 120 days since update/last review AND/OR Will remain clean, dry between incontinent episodes thru 120days from update/last review 01/21/2025 ADL approaches will meet the resident?s needs to enhance ability, maintain abilities, or provide quality. 01/21/2025 Ben will maintain nutritional status t hrough next review 01/21/2025 Refrigerator will remain bel ow 41 degrees Fahrenheit to facilitate safe storage of edible products. 01/21/2025 Comfort needs will be met thru 120 days from update/last review. 01/21/2025 Will not exhibit complicatio ns r/t catheter use for 120days from update/last review 01/21/2025 Resident will optimize menta l health as evidenced by decreased behaviors, improved PHQ9, and/or verbalization of satisfactory outcome. 01/21/2025 Will have infection resolve with current treatment AND/OR Will have no complications r/t tx for infection for 90 days from update/last review 02/16/2025 Encounters Admission Date Discharge Date Description MRN Visit Count 05/24/2016 16:20 LTPAC Admission [id number]
--- OUTSIDE RECORDS SUMMARY | 2024-12-17 15:54 | XMS_ITS | Encounter Summary ---
Author Organization [facility] Address [address] [place] [address] Care Team Providers Care Nps Name Role Phone Unavailable Primary Care Provider Unavailabl e Encounter Details Date Type Department Care Team (Late st Contact Info) Description 03/03/2021 Lab Requisition [facility] General Laboratory Services [address] [place] [address] [place] [address] [place] [address] Social History Tobacco Use Types Packs/Day Years Used Date Smoking Tobacco: Never Assessed Sex and Gender Information Value Date Recorded Sex Assigned at Not on file Legal Sex Male 3:02 PM CDT Gender Identity Not on file Sexual Orientation Not on file documented as of this encounter Plan of Treatment Not on file documented as of this encounter Visit Diagnoses Not on filedocumented in this encounter
--- OUTSIDE RECORDS SUMMARY | 2024-12-17 15:54 | XMS_ITS | Encounter Summary ---
Author Organization [facility] Address [address] [place] [address] Care Team Providers Care Pressing Machine Operator Name Role Phone Unavailable Primary Care Provider Unavailabl e Encounter Details Date Type Department Care Team (Late st Contact Info) Description 05/06/[address] [facility] Laboratory Services [address] [place] [address] Dominic Adams, [address] [address] Social History Tobacco Use Types Packs/Day Years Used Date Smoking Tobacco: Never Assessed Sex and Gender Information Value Date Recorded Sex Assigned at Not on file Legal Sex Male 3:02 PM CDT Gender Identity Not on file Sexual Orientation Not on file documented as of this encounter Plan of Treatment Scheduled Orders Name Type Priority Associated Diagnoses Orde r Schedule CYTOLOGY, NON GYNE Pathology Routine Ordere d: 05/06/2020 documented as of this encounter Visit Diagnoses Not on filedocumented in this encounter
--- OUTSIDE RECORDS SUMMARY | 2024-12-17 15:54 | XMS_ITS | Encounter Summary ---
Author Organization [facility] Address [address] [place] [address] Care Team Providers Care Plant Assigner Name Role Phone Unavailable Primary Care Provider Unavailabl e Encounter Details Date Type Department Care Team (Late st Contact Info) Description 03/02/2021 Lab Requisition [facility] Laboratory Services [address] [place] [address] Ronda Veras, WILSON [address] [place] [address] Social History Tobacco Use Types Packs/Day Years [...] Procedure Name Priority Date/Time Associated Diagnosis Comments SODIUM LEVEL Stat 03/02/2021 3:57 PM CDT documented in this encounter Results * (ABNORMAL) SODIUM LEVEL (03/02/2021 3:57 PM CDT) SODIUM 163(HH) 136 - 145 mmol/L 03/02/2021 7:44 PM CDT [facility] Comment: The following critical results were called to rhea ann and read back verified. 03/02/21@3 Sodium: 163 mmol/L High Panic (Ref. Range: 136-145) Blood Collection / Unknown 03/02/2021 3:57 PM CDT 03/02/2021 7:31 PM CDT us Ronda Veras SHEET ROCK TAPER HELPER CHEMISTRY ORDERABLES Final Result [facility] [place] [address] [place] [address] documented in this encounter Visit Diagnoses Not on filedocumented in this encounter
--- OUTSIDE RECORDS SUMMARY | 2024-12-17 15:54 | XMS_ITS | Encounter Summary ---
Author Organization [facility] Address [address] [place] [address] Care Team Providers Care Automatic Punch Press Operator Name Role Phone Unavailable Primary Care Provider Unavailabl e Encounter Details Date Type Department Care Team (Late st Contact Info) Description 05/05/2020 Lab Requisition [facility] Laboratory Services [address] [place] [address] Dominic Adams DO [address] [address] Social History Tobacco Use Types Packs/Day Years [...] Procedure Name Priority Date/Time Associated Diagnosis Comments PSA Routine 05/05/2020 8:04 AM CDT documented in this encounter Results * PSA (05/05/2020 8:04 AM CDT) PSA 0.8 0.0 - 4.0 ng/mL 05/05/2020 5:37 PM CDT [facility] Blood Collection / Unknown 05/05/2020 8:04 AM CDT 05/05/2020 4:15 PM CDT Dominic Adams DO CHEMISTRY ORDERABLES Final Result [facility] [address] [place] [address] documented in this encounter Visit Diagnoses Not on filedocumented in this encounter
--- OUTSIDE RECORDS SUMMARY | 2024-12-17 15:54 | XMS_ITS | Encounter Summary ---
Author Organization [facility] Address [address] [place] [address] Care Team Providers Care Self Propelled Hot Mix Roller Operator Name Role Phone Unavailable Primary Care Provider Unavailabl e Encounter Details Date Type Department Care Team (Late st Contact Info) Description 05/06/2020 Lab Requisition [facility] Laboratory Services [address] [place] [address] Dominic Adams, [address] [facility] [address] [place] [address] Social History Tobacco Use Types Packs/Day Years [...] Procedure Name Priority Date/Time Associated Diagnosis Comments CYTOLOGY, NON GYNE Routine 05/05/2020 9: 30 PM CDT documented in this encounter Results * CYTOLOGY, NON GYNE (05/05/2020 9:30 PM CDT) CASE REPORT Medical Cytology Report ? Case: [id number] ? Authorizing Provider: ??Dominic Adams, ??Collected: ? 05/05/2020 2130 ? DO ? Ordering Location: ? [facility] ?? Received: ?05/10/2020 1020 ? Services [place] ? Specimen: ?Urine, unspecified source ? 05/10/2020 10:32 AM [facility] FINAL DIAGNOSIS A. Urine, ThinPrep cytology - negative for high grade urothelial carcinoma. Frederick Alfaro MD [id number] 05/10/2020 10:32 AM [facility] Verified by Frederick Alfaro MD on 05/10/2020 at 1032 CDT SPECIMEN DESCRIPTION 50 ml clear yellow fluid submitted for ThinPrep Please disregard prior results on [id number] (initially entered and resulted under case [id number]; subsequently re-accessioned as case [id number]). 05/10/2020 10:32 AM [facility] OPERATIVE PROCEDURE 05/10/2020 10:32 AM [facility] CLINICAL INFORMATION ATLAS#[id number] Diagnosis: N.40.0 N32.9 Number of Specimens: 01 Specimen Source: Urine, unspecified source Order Associated Dx:No Dx found. 05/10/2020 10:32 AM CDT [facility] COMMENT Unless gross only is specified in the diagnosis, the microscopic examination substantiates the above cited diagnosis. The performance characteristics of all immunohistochemical stains cited in this report (if any) were determined by the Diagnostic Immunohistochemistry Laboratory of [facility] in compliance with CLIA'88 regulations. Some of these tests rely on the use of analyte specific reagents and are subject to specific labeling requirements by the FDA. All controls show appropriate reactivity. This testing was developed by the Diagnostic Immunohistochemistry Laboratory of [facility]. It has not been cleared or approved by the FDA. The FDA has determined that such clearance or approval is not necessary. 05/10/2020 10:32 AM CDT [facility] Body fluid URINE SPECIMEN / Unknown 05/05/2020 9:30 PM CDT 05/10/2020 10:20 AM CDT Dominic Adams DO PATHOLOGY/CYTOLOGY OR DERABLES Final Result [facility] [address] [place] [address] documented in this encounter Visit Diagnoses Not on filedocumented in this encounter
--- OUTSIDE RECORDS SUMMARY | 2024-12-17 15:54 | XMS_ITS | Encounter Summary ---
Author Organization [facility] Address [address] [place] [address] Care Team Providers Care Dietitian Name Role Phone Unavailable Primary Care Provider Unavailabl e Encounter Details Date Type Department Care Team (Late st Contact Info) Description 05/06/2020 Lab Requisition [facility] Laboratory Services [address] [place] [address] Dominic Adams, [address] [facility] [address] [place] [address] Social History Tobacco Use Types Packs/Day Years [...] Associated Diagnosis Comments CYTOLOGY, NON GYNE Routine 05/06/2020 12 :00 PM CDT documented in this encounter Results * CYTOLOGY, NON GYNE (05/06/2020 12:00 PM CDT) CASE REPORT Medical Cytology Report ? Case: [id number] ? Authorizing Provider: ??Dominic Adams, ??Collected: ? 05/06/2020 1200 ? DO ? Ordering Location: ? [facility] ?? Received: ?05/07/2020 07 ? Services [place] ? Pathologist: ? Frederick Alfaro MD ? Specimen: ?Urine, unspecified source ? 05/10/2020 10:39 AM CDT [facility] FINAL DIAGNOSIS AMENDED REPORT: This specimen required reaccessioning for clerical reasons, after the result had already been verified under accession number [id number]. Please disregard the prior report with accession number [id number] and refer to the new accession number [id number]. (The diagnosis itself remained unchanged.) Frederick Alfaro MD [id number] 05/10/2020 10:39 AM CDT [facility] Amendment verified by Frederick Alfaro MD on 05/10/2020 at 1039 CDT Verified by Frederick Alfaro MD on 05/10/2020 at 1022 CDT SPECIMEN DESCRIPTION 50 ml cloudy yellow fluid submitted for ThinPrep 05/10/2020 10:39 AM CDT [facility] COMMENT Unless gross only is specified in the diagnosis, the microscopic examination substantiates the above cited diagnosis. The performance characteristics of all immunohistochemical stains cited in this report (if any) were determined by the Diagnostic Immunohistochemistry Laboratory of [facility] in compliance with CLIA'88 regulations. Some of these tests rely on the use of analyte specific reagents and are subject to specific labeling requirements by the FDA. All controls show appropriate reactivity. This testing was developed by the Diagnostic Immunohistochemistry Laboratory of [facility]. It has not been cleared or approved by the FDA. The FDA has determined that such clearance or approval is not necessary. 05/10/2020 10:39 AM CDT [facility] Urine URINE SPECIMEN / Unknown 05/06/2020 12:00 PM CDT 05/07/2020 7:14 AM CDT Dominic Adams DO PATHOLOGY/CYTOLOGY OR DERABLES Edited Result - Final [facility] [address] [place] [address] documented in this encounter Visit Diagnoses Not on filedocumented in this encounter
--- OUTSIDE RECORDS SUMMARY | 2024-12-17 15:54 | XMS_ITS | Encounter Summary ---
Author Organization [facility] Address [address] [place] [address] Care Team Providers Care Linen Aide Name Role Phone Unavailable Primary Care Provider Unavailabl e Encounter Details Date Type Department Care Team (Late st Contact Info) Description 03/03/2021 Lab Requisition [facility] Laboratory Services [address] [place] [address] Ronda Veras, WILSON [address] [place] [address] Social History Tobacco Use Types [...] Procedure Name Priority Date/Time Associated Diagnosis Comments BASIC METABOLIC PANEL PLUS Stat 03/03/2021 3:00 AM CDT CBC WITHOUT DIFFERENTIAL Stat 03/03/2021 3:00 AM CDT documented in this encounter Results * (ABNORMAL) CBC WITHOUT DIFFERENTIAL (03/03/2021 3:00 AM CDT) WBC 13.7(H) 4.8 - 10.8 K/uL 03/03/2021 5:57 AM CDT [facility] RBC 4.88 4.60 - 6.20 M/uL 03/03/2021 5:57 AM CDT [facility] HEMOGLOBIN 12.3(L) 14.0 - 18.0 g/dL 03/03/2021 5:57 AM CDT [facility] HEMATOCRIT 42.2 41.0 - 53.0 % 03/03/2021 5:57 AM CDT [facility] MCV 86.5 84.0 - 103.0 fL 03/03/2021 5:57 AM CDT [facility] MCH 25.2(L) 27.0 - 34.0 pg 03/03/2021 5:57 AM CDT [facility] MCHC 29.1(L) 30.0 - 35.0 g/dL 03/03/2021 5:57 AM CDT [facility] PLATELETS 238 140 - 440 K/uL 03/03/2021 5:57 AM CDT [facility] MPV 12.9(H) 8.9 - 12.8 fL 03/03/2021 5:57 AM CDT [facility] RDW 18.9(H) 11.0 - 14.5 % 03/03/2021 5:57 AM CDT [facility] RDW-STDEV 58.4(H) 37.0 - 54.0 fL 03/03/2021 5:57 AM CDT [facility] Blood Collection / Unknown 03/03/2021 3:00 AM CDT 03/03/2021 5:45 AM CDT us Ronda Veras NP HEMATOLOGY ORDERABLE S Final Result Performing Organization Address City/State/[facility] Co de Phone Number [facility] [address] [place] [address] * (ABNORMAL) BASIC METABOLIC PANEL PLUS (ADD ON CMP TO BMP) (03/03/2021 3:00 AM CDT) TOTAL PROTEIN 6.5 6.4 - 8.3 g/dL 03/03/2021 6:16 AM CDT [facility] ALBUMIN 2.7(L) 3.5 - 5.2 g/dL 03/03/2021 6:16 AM CDT [facility] BILIRUBIN TOTAL 0.7 0.2 - 1.0 mg/dL 03/03/2021 6:16 AM CDT [facility] ALKALINE PHOSPHATASE 139(H) 40 - 129 U/L 03/03/2021 6:16 AM CDT [facility] AST 20 10 - 50 U/L 03/03/2021 6:16 AM CDT [facility] ALT 9 <=50 U/L 03/03/2021 6:16 AM CDT [facility] Blood Collection / Unknown 03/03/2021 3:00 AM CDT 03/03/2021 5:48 AM CDT us Ronda Veras NP CHEMISTRY ORDERABLES Final Result [facility] [address] [place] [address] documented in this encounter Visit Diagnoses Not on filedocumented in this encounter
--- OUTSIDE RECORDS SUMMARY | 2024-12-17 15:55 | XMS_ITS | Encounter Summary ---
Author Organization [facility] Address [address] [place] [address] Care Team Providers Care Library Clerk Talking Books Name Role Phone Unavailable Primary Care Provider Unavailabl e Encounter Details Date Type Department Care Team (Late st Contact Info) Description 03/04/2021 Lab Requisition [facility] Laboratory Services [address] [place] [address] [place] [address] [place] [address] Social History Tobacco Use Types [...] Date/Time Associated Diagnosis Comments BASIC METABOLIC PANEL Stat 03/04/2021 8:10 PM CDT documented in this encounter Results * (ABNORMAL) BASIC METABOLIC PANEL (03/04/2021 8:10 PM CDT) SODIUM 159(H) 136 - 145 mmol/L 03/05/2021 1:17 AM CDT [facility] POTASSIUM 4.0 3.5 - 5.1 mmol/L 03/05/2021 1:17 AM CDT [facility] CHLORIDE 123(H) 98 - 107 mmol/L 03/05/2021 1:17 AM CDT [facility] CO2 28 22 - 29 mmol/L 03/05/2021 1:17 AM CDT [facility] CALCIUM 8.1(L) 8.8 - 10.2 mg/dL 03/05/2021 1:17 AM CDT [facility] BUN 39(H) 8 - 23 mg/dL 03/05/2021 1:17 AM [facility] CREATININE 1.53(H) 0.67 - 1.17 mg/dL 03/05/2021 1:17 AM T [facility] Comment:The GFR result is no t clinically significant on patients <18 or >70 years of age. GLUCOSE 129(H) 74 - 99 mg/dL 03/05/2021 1:17 AM T [facility] GFR 45 mL/min/1. 73 sq meter 03/05/2021 1:17 AM [facility] Comment: eGFR has not been validated for [...] please refer to the GFR result. GFR, 54 mL/min/1. 73 sq meter 03/05/2021 1:17 AM T [facility] ANION GAP 8(L) 9 - 20 mmol/L 03/05/2021 1:17 AM T [facility] Blood Collection / Unknown 03/04/2021 8:10 PM CDT 03/05/2021 12:57 AM CDT us Girish Campos MD CHEMISTRY ORDERABLES Final Resu lt [facility] [address] [place] [address] documented in this encounter Visit Diagnoses Not on filedocumented in this encounter
--- OUTSIDE RECORDS SUMMARY | 2024-12-17 15:55 | XMS_ITS | Encounter Summary ---
Author Organization [facility] Address [address] [place] [address] Care Team Providers Care Corporate Intern Name Role Phone Unavailable Primary Care Provider Unavailabl e Encounter Details Date Type Department Care Team (Late st Contact Info) Description 03/02/2021 Lab Requisition [facility] Laboratory Services [address] [place] [address] [place] [address] [place] [address] Social History Tobacco Use Types [...] Procedure Name Priority Date/Time Associated Diagnosis Comments PHOSPHORUS Stat 03/02/2021 1:45 AM CDT MAGNESIUM LEVEL Stat 03/02/2021 1:45 AM CDT VANCOMYCIN LEVEL RANDOM Stat 03/02/2021 1:45 AM CDT CBC WITH DIFFERENTIAL Stat 03/02/2021 1:02 AM CDT documented in this encounter Results * PHOSPHORUS (03/02/2021 1:45 AM CDT) PHOSPHORUS 3.9 2.5 - 4.5 mg/dL 03/02/2021 6:27 AM CDT [facility] Secrette [facility] Blood Collection / Unknown 03/02/2021 1:45 AM CDT 03/02/2021 5:53 AM CDT Girish Campos MD CHEMISTRY ORDERABLES Final Resu lt Performing Organization Address [facility] de Phone Number [address] [address] * MAGNESIUM LEVEL (03/02/2021 1:45 AM CDT) MAGNESIUM 2.2 1.6 - 2.4 mg/dL 03/02/2021 6:27 AM CDT [facility] Blood Collection / Unknown 03/02/2021 1:45 AM CDT 03/02/2021 5:53 AM CDT Girish Campos MD CHEMISTRY ORDERABLES Final Resu lt Performing Organization Address [facility] Phone Number [address] [address] * VANCOMYCIN LEVEL RANDOM (03/02/2021 1:45 AM CDT) Pathologist [facility] VANCOMYCIN, RANDOM 12.4 5.0 - 50.0 ug/mL 03/02/2021 6:27 AM CDT [facility] Blood Collection / Unknown 03/02/2021 1:45 AM CDT 03/02/2021 5:53 AM CDT Narrative [facility] - 03/02/2021 6:27 AM CDT Vancomycin Therapeutic Ranges: Vancomycin Trough: 10 - 20 mcg/mL Vancomycin Peak: ?? 25 - 50 mcg/mL Girish Campos MD CHEMISTRY ORDERABLES Final Resu lt Performing Organization Address [facility] de Phone Number [address] [address] * (ABNORMAL) CBC WITH DIFFERENTIAL (03/02/2021 1:02 AM CDT) WBC 13.0(H) 4.8 - 10.8 K/uL 03/02/2021 6:01 AM [facility] RBC 4.46(L) 4.60 - 6.20 M/uL 03/02/2021 6:01 AM [facility] HEMOGLOBIN 11.3(L) 14.0 - 18.0 g/dL 03/02/2021 6:01 AM [facility] HEMATOCRIT 37.6(L) 41.0 - 53.0 % 03/02/2021 6:01 AM [facility] MCV 84.3 84.0 - 103.0 fL 03/02/2021 6:01 AM [facility] MCH 25.3(L) 27.0 - 34.0 pg 03/02/2021 6:01 AM [facility] MCHC 30.1 30.0 - 35.0 g/dL 03/02/2021 6:01 AM [facility] RDW 18.8(H) 11.0 - 14.5 % 03/02/2021 6:01 AM [facility] RDW-STDEV 57.0(H) 37.0 - 54.0 fL 03/02/2021 6:01 AM [facility] PLATELETS 239 140 - 440 K/uL 03/02/2021 6:01 AM [facility] MPV 12.2 8.9 - 12.8 fL 03/02/2021 6:01 AM [facility] NEUTROPHILS 79(H) 42 - 75 % 03/02/2021 6:01 AM [facility] LYMPHOCYTES 8(L) 24 - 44 % 03/02/2021 6:01 AM [facility] MONOCYTES 8 2 - 10 % 03/02/2021 6:01 AM [facility] EOSINOPHILS 4 0 - 7 % 03/02/2021 6:01 AM [facility] BASOPHILS 0 0 - 1 % 03/02/2021 6:01 AM [facility] IMMATURE GRANULOCYTES 1 0 - 2 % 03/02/2021 6:01 AM CDT [facility] NEUTROPHIL ABSOLUTE 10.30(H) 2.00 - 8.00 K/uL 03/02/2021 6:01 AM CDT [facility] LYMPHOCYTE ABSOLUTE 1.10(L) 1.20 - 4.00 K/uL 03/02/2021 6:01 AM CDT [facility] MONOCYTE ABSOLUTE 0.97(H) 0.10 - 0.60 K/uL 03/02/2021 6:01 AM CDT [facility] EOSINOPHIL ABSOLUTE 0.48 0.00 - 0.70 K/uL 03/02/2021 6:01 AM CDT [facility] BASOPHILS ABSOLUTE 0.02 0.00 - 0.20 K/uL 03/02/2021 6:01 AM CDT [facility] IMMATURE GRANULOCYTES ABSOLUTE 0.15(H) 0.00 - 0.10 K/uL 03/02/2021 6:01 AM T [facility] Blood 03/02/2021 1:02 AM CDT 03/02/2021 5:52 AM CDT us Girish Campos MD HEMATOLOGY ORDERABLES Final Res ult [facility] [address] [place] [address] documented in this encounter Visit Diagnoses Not on filedocumented in this encounter
--- OUTSIDE RECORDS SUMMARY | 2024-12-17 15:55 | XMS_ITS | Encounter Summary ---
Author Organization [facility] Address [address] [place] [address] Care Team Providers Care Retread Builder Name Role Phone Unavailable Primary Care Provider Unavailabl e Encounter Details Date Type Department Care Team (Late st Contact Info) Description 03/05/2021 Lab Requisition [facility] Laboratory Services [address] [place] [address] [place] [address] [place] [address] Social History Tobacco Use Types [...]
--- OUTSIDE RECORDS SUMMARY | 2024-12-17 15:55 | XMS_ITS | Encounter Summary ---
Author Organization [facility] Address [address] [place] [address] Care Team Providers Care Sanitary Landfill Supervisor Name Role Phone Unavailable Primary Care Provider Unavailabl e Encounter Details Date Type Department Care Team (Late st Contact Info) Description 06/11/2020 Lab Requisition [facility] Laboratory Services [address] [place] [address] Dominic Adams DO [address] [address] Social History Tobacco Use Types Packs/Day Years [...] Procedure Name Priority Date/Time Associated Diagnosis Comments URINE CULTURE Routine 06/11/2020 1:03 AM CDT documented in this encounter Results * URINE CULTURE (06/11/2020 1:03 AM CDT) CULTURE No growth 06/12/2020 1:17 PM CDT [facility] [place] [facility] Urine URINE SPECIMEN OBTAINED BY CLEAN CATCH PROCEDURE / Unknown 06/11/2020 1:03 AM CDT 06/11/2020 5:04 PM CDT us Dominic Adams DO MICROBIOLOGY - GENERA L ORDERABLES Final Result [facility] [place] [facility] [address] [place] [address] documented in this encounter Visit Diagnoses Not on filedocumented in this encounter
--- OUTSIDE RECORDS SUMMARY | 2024-12-17 15:55 | XMS_ITS | Encounter Summary ---
Author Organization [facility] Address [address] [place] [address] Care Team Providers Care Balloon Artist Name Role Phone Unavailable Primary Care Provider Unavailabl e Encounter Details Date Type Department Care Team (Late st Contact Info) Description 03/05/2021 Lab Requisition [facility] Laboratory Services [address] [place] [address] Cindy Squires NP NO ADDRESS ON FILE Social History Tobacco Use Types Packs/Day Years [...] Procedure Name Priority Date/Time Associated Diagnosis Comments RENAL FUNCTION PANEL Stat 03/05/2021 3:40 AM CDT documented in this encounter Results * (ABNORMAL) RENAL FUNCTION PANEL (03/05/2021 3:40 AM CDT) SODIUM 160(H) 136 - 145 mmol/L 03/05/2021 6:23 AM CDT [facility] POTASSIUM 3.9 3.5 - 5.1 mmol/L 03/05/2021 6:23 AM CDT [facility] CHLORIDE 124(H) 98 - 107 mmol/L 03/05/2021 6:23 AM T [facility] CO2 29 22 - 29 mmol/L 03/05/2021 6:23 AM CDT [facility] CALCIUM 8.2(L) 8.8 - 10.2 mg/dL 03/05/2021 6:23 AM T [facility] BUN 39(H) 8 - 23 mg/dL 03/05/2021 6:23 AM CDT [facility] CREATININE 1.48(H) 0.67 - 1.17 mg/dL 03/05/2021 6:23 AM [facility] Comment:The GFR result is no t clinically significant on patients <18 or >70 years of age. GLUCOSE 134(H) 74 - 99 mg/dL 03/05/2021 6:23 AM [facility] ALBUMIN 2.7(L) 3.5 - 5.2 g/dL 03/05/2021 6:23 AM T [facility] PHOSPHORUS 3.5 2.5 - 4.5 mg/dL 03/05/2021 6:23 AM T [facility] GFR 46 mL/min/1. 73 sq meter 03/05/2021 6:23 AM [facility] Comment: eGFR has not been validated [...] please refer to the GFR result. GFR, 56 mL/min/1. 73 sq meter 03/05/2021 6:23 AM T [facility] ANION GAP 7(L) 9 - 20 mmol/L 03/05/2021 6:23 AM T [facility] Blood Collection / Unknown 03/05/2021 3:40 AM CDT 03/05/2021 6:05 AM CDT us Cindy Squires NP CHEMISTRY ORDERABLES Final Resu lt [facility] [address] [place] [address] documented in this encounter Visit Diagnoses Not on filedocumented in this encounter
--- OUTSIDE RECORDS SUMMARY | 2024-12-17 15:55 | XMS_ITS | Encounter Summary ---
Author Organization [facility] Address [address] [place] [address] Care Team Providers Care Rn Surgical Name Role Phone Unavailable Primary Care Provider Unavailabl e Encounter Details Date Type Department Care Team (Late st Contact Info) Description 03/04/[address] [facility] Laboratory Services [address] [place] [address] [place] [address] [place] [address] Social History Tobacco Use Types [...] Associated Diagnosis Comments RENAL FUNCTION PANEL Stat 03/04/2021 4:20 AM CDT documented in this encounter Results * (ABNORMAL) RENAL FUNCTION PANEL (03/04/2021 4:20 AM CDT) SODIUM 155(H) 136 - 145 mmol/L 03/04/2021 6:00 AM CDT [facility] POTASSIUM 3.3(L) 3.5 - 5.1 mmol/L 03/04/2021 6:00 AM CDT [facility] CHLORIDE 121(H) 98 - 107 mmol/L 03/04/2021 6:00 AM CDT [facility] CO2 25 22 - 29 mmol/L 03/04/2021 6:00 AM CDT [facility] CALCIUM 7.9(L) 8.8 - 10.2 mg/dL 03/04/2021 6:[address] [facility] BUN 37(H) 8 - 23 mg/dL 03/04/2021 6:[address] [facility] CREATININE 1.28(H) 0.67 - 1.17 mg/dL 03/04/2021 6:[address] [facility] Comment:The GFR result is no t clinically significant on patients <18 or >70 years of age. GLUCOSE 129(H) 74 - 99 mg/dL 03/04/2021 6:[address] [facility] ALBUMIN 2.7(L) 3.5 - 5.2 g/dL 03/04/2021 6:[address] [facility] PHOSPHORUS 2.9 2.5 - 4.5 mg/dL 03/04/2021 6:[address] [facility] GFR 55 mL/min/1. 73 sq meter 03/04/2021 6:[address] [facility] Comment: eGFR has not been validated for [...] please refer to the GFR result. GFR, >60 mL/min/1. 73 sq meter 03/04/2021 6:[address] [facility] ANION GAP 9 9 - 20 mmol/L 03/04/2021 6:[address] [facility] Blood Collection / Unknown 03/04/2021 4:20 AM CDT 03/04/2021 5:17 AM CDT us Girish Campos MD CHEMISTRY ORDERABLES Final Resu lt [facility] [address] [place] [address] documented in this encounter Visit Diagnoses Not on filedocumented in this encounter
--- OUTSIDE RECORDS SUMMARY | 2024-12-17 15:55 | XMS_ITS | Encounter Summary ---
Author Organization [facility] Address [address] [place] [address] Care Team Providers Care Services Clerk Name Role Phone Unavailable Primary Care Provider Unavailabl e Encounter Details Date Type Department Care Team (Late st Contact Info) Description 03/04/2021 Lab Requisition [facility] Laboratory Services [address] [place] [address] [place] [address] Cindy Squires NP NO ADDRESS [...] Procedure Name Priority Date/Time Associated Diagnosis Comments TROPONIN Stat 03/04/2021 9:56 AM CDT documented in this encounter Results * (ABNORMAL) TROPONIN (03/04/2021 9:56 AM CDT) TROPONIN T, 5TH GEN 46(H) <=15 ng/L 03/04/2021 1:35 PM CDT [facility] [place] [facility] Blood Collection / Unknown 03/04/2021 9:56 AM CDT 03/04/2021 1:14 PM CDT Narrative [facility] [place] [facility] - 03/04/2021 1:35 PM CDT Troponin elevated. Cindy Squires NP CHEMISTRY ORDERABLES Final Resu lt [facility] [employer] [facility] [address] [place], [place] [address] documented in this encounter Visit Diagnoses Not on filedocumented in this encounter
--- OUTSIDE RECORDS SUMMARY | 2024-12-17 15:55 | XMS_ITS | Encounter Summary ---
Author Organization [facility] Address [address] [place] [address] Care Team Providers Care Back End Engineer Name Role Phone Unavailable Primary Care Provider Unavailabl e Encounter Details Date Type Department Care Team (Late st Contact Info) Description 03/03/2021 Lab Requisition [facility] Laboratory Services [address] [place] [address] Cindy Squires NP NO ADDRESS [...] Associated Diagnosis Comments RENAL FUNCTION PANEL Stat 03/03/2021 11:01 AM CDT documented in this encounter Results * (ABNORMAL) RENAL FUNCTION PANEL (03/03/2021 11:01 AM CDT) SODIUM 160(H) 136 - 145 mmol/L 03/03/2021 1:12 PM CDT [facility] POTASSIUM 3.9 3.5 - 5.1 mmol/L 03/03/2021 1:12 PM CDT [facility] CHLORIDE 128(H) 98 - 107 mmol/L 03/03/2021 1:12 PM CDT [facility] CO2 20(L) 22 - 29 mmol/L 03/03/2021 1:12 PM CDT [facility] CALCIUM 8.0(L) 8.8 - 10.2 mg/dL 03/03/2021 1:12 PM CDT [facility] BUN 48(H) 8 - 23 mg/dL 03/03/2021 1:12 PM CDT [facility] CREATININE 1.47(H) 0.67 - 1.17 mg/dL 03/03/2021 1:12 PM T [facility] Comment:The GFR result is no t clinically significant on patients <18 or >70 years of age. GLUCOSE 146(H) 74 - 99 mg/dL 03/03/2021 1:12 PM [facility] ALBUMIN 2.3(L) 3.5 - 5.2 g/dL 03/03/2021 1:12 PM T [facility] PHOSPHORUS 3.5 2.5 - 4.5 mg/dL 03/03/2021 1:12 PM T [facility] GFR 47 mL/min/1. 73 sq meter 03/03/2021 1:12 PM T [facility] Comment: eGFR has not been validated [...] please refer to the GFR result. GFR, 57 mL/min/1. 73 sq meter 03/03/2021 1:12 PM CDT [facility] ANION GAP 12 9 - 20 mmol/L 03/03/2021 1:12 PM T [facility] Blood Collection / Unknown 03/03/2021 11:01 AM CDT 03/03/2021 12:27 PM CDT us Cindy Squires NP CHEMISTRY ORDERABLES Final Resu lt [facility] [address] [place] [address] documented in this encounter Visit Diagnoses Not on filedocumented in this encounter
--- OUTSIDE RECORDS SUMMARY | 2024-12-17 15:55 | XMS_ITS | Encounter Summary ---
Author Organization [facility] Address [address] [place] [address] Care Team Providers Care Spectrograph Operator Name Role Phone Unavailable Primary Care Provider Unavailabl e Encounter Details Date Type Department Care Team (Late st Contact Info) Description 03/04/2021 Lab Requisition [facility] Laboratory Services [address] [place] [address] [place] [address] [place] [address] [place] [address] Social History Tobacco Use Types [...] Procedure Name Priority Date/Time Associated Diagnosis Comments EXTRA TUBE (GREEN) Routine 03/04/2021 8: 10 PM CDT BASIC METABOLIC PANEL Stat 03/04/2021 2:20 PM CDT documented in this encounter Results * EXTRA TUBE (GREEN) (03/04/2021 8:10 PM CDT) Blood Collection / Unknown 03/04/2021 8:10 PM CDT 03/04/2021 10:51 PM CDT us Girish Campos MD CHEMISTRY ORDERABLES Final Resu lt [facility] [address] [place] [address] * (ABNORMAL) BASIC METABOLIC PANEL (03/04/2021 2:20 PM CDT) SODIUM 154(H) 136 - 145 mmol/L 03/04/2021 5:00 PM [facility] POTASSIUM 4.1 3.5 - 5.1 mmol/L 03/04/2021 5:00 PM [facility] CHLORIDE 120(H) 98 - 107 mmol/L 03/04/2021 5:00 PM [facility] CO2 25 22 - 29 mmol/L 03/04/2021 5:00 PM [facility] CALCIUM 8.2(L) 8.8 - 10.2 mg/dL 03/04/2021 5:00 PM [facility] BUN 37(H) 8 - 23 mg/dL 03/04/2021 5:00 PM [facility] CREATININE 1.42(H) 0.67 - 1.17 mg/dL 03/04/2021 5:00 PM [facility] Comment:The GFR result is no t clinically significant on patients <18 or >70 years of age. GLUCOSE 118(H) 74 - 99 mg/dL 03/04/2021 5:00 PM [facility] GFR 49 mL/min/1. 73 sq meter 03/04/2021 5:00 PM [facility] Comment: eGFR has not been validated [...] please refer to the GFR result. GFR, 59 mL/min/1. 73 sq meter 03/04/2021 5:00 PM [facility] ANION GAP 9 9 - 20 mmol/L 03/04/2021 5:00 PM [facility] Blood Collection / Unknown 03/04/2021 2:20 PM CDT 03/04/2021 4:42 PM CDT us Girish Campos MD CHEMISTRY ORDERABLES Final Resu lt Performing Organization Address [facility]/State/[facility] Co de Phone Number [facility] SERVICES [place] [phone] [place] [address] documented in this encounter Visit Diagnoses Not on filedocumented in this encounter
--- OUTSIDE RECORDS SUMMARY | 2024-12-17 15:55 | XMS_ITS | Encounter Summary ---
Author Organization [facility] Address [address] [place] [address] Care Team Providers Care Granulator Operator Name Role Phone Unavailable Primary Care Provider Unavailabl e Encounter Details Date Type Department Care Team (Late st Contact Info) Description 03/05/2021 Lab Requisition [facility] [address] [place] [address] [place] [address] [place] [address] Social History Tobacco Use Types [...] Date/Time Associated Diagnosis Comments TROPONIN Stat 03/04/2021 8:10 PM CDT documented in this encounter Results * (ABNORMAL) TROPONIN (03/04/2021 8:10 PM CDT) TROPONIN T, 5TH GEN 53(H) <=15 ng/L 03/05/2021 1:26 AM CDT [facility] Blood Collection / Unknown 03/04/2021 8:10 PM CDT 03/05/2021 1:02 AM CDT Narrative [facility] - 03/05/2021 1:26 AM CDT Troponin elevated. us Girish Campos MD CHEMISTRY ORDERABLES Final Resu lt [facility] [address] [place] [address] documented in this encounter Visit Diagnoses Not on filedocumented in this encounter
--- OUTSIDE RECORDS SUMMARY | 2024-12-17 15:55 | XMS_ITS | Encounter Summary ---
Author Organization [facility] Address [address] [place] [address] Care Team Providers Care Data Processing Operator Name Role Phone Unavailable Primary Care Provider Unavailabl e Encounter Details Date Type Department Care Team (Late st Contact Info) Description 03/03/2021 Lab Requisition [facility] Laboratory Services [address] [place] [address] [place] [address] [place] [address] Social History Tobacco Use Types [...] Priority Date/Time Associated Diagnosis Comments TROPONIN Stat 03/03/2021 1:40 PM CDT BRAIN NATRIURETIC PEPTIDE, BNP OR PROBNP Stat 03/03/2021 1:40 PM CDT MAGNESIUM LEVEL Stat 03/03/2021 1:40 PM CDT BASIC METABOLIC PANEL Stat 03/03/2021 1:40 PM CDT documented in this encounter Results * (ABNORMAL) BRAIN NATRIURETIC PEPTIDE, BNP OR PROBNP (03/03/2021 1:40 PM CDT) PROBNP, N TERMINAL 508(H) 0 - 450 pg/mL 03/03/2021 5:29 PM CDT [facility] [employer] [facility] Blood 03/03/2021 1:40 PM CDT 03/03/2021 5:10 PM CDT Girish Campos MD CHEMISTRY ORDERABLES Final Resu lt Performing Organization Address [facility] de Phone Number [facility] [address] [place] [address] * (ABNORMAL) TROPONIN (03/03/2021 1:40 PM CDT) TROPONIN T, 5TH GEN 62(H) <=15 ng/L 03/03/2021 5:29 PM CDT [facility] Blood 03/03/2021 1:40 PM CDT 03/03/2021 5:10 PM CDT Narrative [facility] - 03/03/2021 5:29 PM CDT Troponin elevated. Girish Campos MD CHEMISTRY ORDERABLES Final Resu Performing Organization Address [facility] de Phone Number [facility] [address] [place] [address] * MAGNESIUM LEVEL (03/03/2021 1:40 PM CDT) Pathologist [facility] MAGNESIUM 1.9 1.6 - 2.4 mg/dL 03/03/2021 5:29 PM CDT [facility] Blood 03/03/2021 1:40 PM CDT 03/03/2021 5:10 PM CDT Girish Campos MD CHEMISTRY ORDERABLES Final Resu lt Performing Organization Address [facility] de Phone Number [facility] [address] [place], [place] [id number] * (ABNORMAL) BASIC METABOLIC PANEL (03/03/2021 1:40 PM CDT) SODIUM 162(HH) 136 - 145 mmol/L 03/03/2021 5:37 PM [facility]:Critical value. Resu lts called to Minnie Baird RN by ERIKA BOYKIN at 5:37 PM on 03/03/2021 and read back verified. POTASSIUM 3.8 3.5 - 5.1 mmol/L 03/03/2021 5:37 PM [facility] CHLORIDE 126(H) 98 - 107 mmol/L 03/03/2021 5:37 PM [facility] CO2 26 22 - 29 mmol/L 03/03/2021 5:37 PM [facility] CALCIUM 8.1(L) 8.8 - 10.2 mg/dL 03/03/2021 5:37 PM [facility] BUN 46(H) 8 - 23 mg/dL 03/03/2021 5:37 PM [facility] CREATININE 1.46(H) 0.67 - 1.17 mg/dL 03/03/2021 5:37 PM [facility] Comment:The GFR result is no t clinically significant on patients <18 or >70 years of age. GLUCOSE 114(H) 74 - 99 mg/dL 03/03/2021 5:37 PM [facility] GFR 47 mL/min/1. 73 sq meter 03/03/2021 5:37 PM [facility] Comment: eGFR has not been validated for [...] GFR, 57 mL/min/1. 73 sq meter 03/03/2021 5:37 PM [facility] ANION GAP 10 9 - 20 mmol/L 03/03/2021 5:37 PM [facility] Blood 03/03/2021 1:40 PM CDT 03/03/2021 5:10 PM CDT us Girish Campos MD CHEMISTRY ORDERABLES Final Resu lt Performing Organization Address City/State/[facility] Co de Phone Number [facility] LABORATORY [facility] [place] [id number] [place] [address] documented in this encounter Visit Diagnoses Not on filedocumented in this encounter
--- OUTSIDE RECORDS SUMMARY | 2024-12-17 15:55 | XMS_ITS | Encounter Summary ---
Author Organization [facility] Address [address] [place] [address] Care Team Providers Care Strip Roller Name Role Phone Unavailable Primary Care Provider Unavailabl e Encounter Details Date Type Department Care Team (Late st Contact Info) Description 03/03/2021 Lab Requisition [facility] Laboratory Services [address] [place] [address] [place] [address] [place] [address] Social History Tobacco Use Types [...]
--- OUTSIDE RECORDS SUMMARY | 2024-12-17 15:55 | XMS_ITS ---
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 has cath Medications Medication SIG (Take, Route, Frequency, Duration) Notes Start Date End Date Status pantoprazole 20 MG Delayed Release Oral Tablet ORAL *Reorder from [facility] for eRx and Interaction Alerts* 3 Active [id number] 200 ACTUAT albuterol 0.09 MG/ACTUAT Metered Dose Inhaler INTRAPULMONARY *Reorder from [facility] for eRx and Interaction Alerts* 3 Active carboxymethylcellulose sodium 5 MG/ML Ophthalmic Solution *Reorder from [facility] for eRx and Interaction Alerts* 3 Active acetaminophen 325 MG Oral Tablet [Mapap] ORAL *Reorder from [facility] for eRx and Interaction Alerts* 3 Active Sulfamethoxazole 800 MG / Trimethoprim 160 MG Oral Tablet ORAL *Reorder from [facility] for eRx and Interaction Alerts* 3 Active Bisacodyl Laxative 10 MG Rectal 3 Active Aspirin 81 81 MG Oral 3 Active Tamsulosin HCl 0.4 MG Oral 3 Active Finasteride 5 MG Oral 3 Active Problems Problem Type SNOMED Code ICD Code Onset Dates Problem Status W/U Status Risk Notes Problem Recurrent urinary tract infection (501527264) Recurrent UTI (N39.0) Active confirmed Encounters Encounter Location Date Provider Diagnosis [facility] [address] [place] [address] [address] [place] [address] 11/19/2024 Kamala Jacobo Madrigal catheter in place Z92.89 and Recurrent UTI N39.0 Assessments Encounter Date Diagnosis (ICD Code) Assessment Notes Treatment Notes Treatment Clinical Notes Section Notes 11/19/[address] (ICD-10 - Z92.89) 11/19/2024 Recurrent UTI (ICD-10 - N39.0) Plan Of Treatment No Information Progress Notes * Ben OCHOA MDOB:1945 (79 yo M)Acc No.[id number]:11/19/2024 Progress Notes Patient:?Ben OCHOA Provider:?BRANDAN Casillas :1945???Age:79 Y???Sex:Male Danny e:11/19/2024 Address:[address] [place] [address] Subjective: * Chief Complaints: * ???1. 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 or UTI has cath. * HPI: ???Provider Note:? Patient is a 79-year-old male who presents to clinic for new patient evaluation The only thing we received out of the referral was that the patient has a UTI and a catheter From a little bit of information I was able to retrieve from the 2 sheets of paper that were sent from 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 Montano for recurrent UTIs and possible prophylaxis. * Medical History:? * Medications:?Taking Bisacody l Laxative 10 MG Suppository Rectal , Taking Finasteride 5 MG Tablet Oral , Taking Tamsulosin HCl 0.4 MG Capsule Oral , Taking Aspirin 81 81 MG Tablet Delayed Release Oral , Taking Sulfamethoxazole 800 MG / Trimethoprim 160 MG Oral Tablet ORAL , Notes to Pharmacist: *Reorder from [employer] for eRx and Interaction Alerts*, Taking acetaminophen 325 MG Oral Tablet [Mapap] ORAL , Notes to Pharmacist: *Reorder from [facility] for eRx and Interaction Alerts*, Taking carboxymethylcellulose sodium 5 MG/ML Ophthalmic Solution , Notes to Pharmacist: *Reorder from [facility] for eRx and Interaction Alerts*, Taking [id number] 200 ACTUAT albuterol 0.09 MG/ACTUAT Metered Dose Inhaler INTRAPULMONARY , Notes to Pharmacist: *Reorder from [facility] for eRx and Interaction Alerts*, Taking pantoprazole 20 MG Delayed Release Oral Tablet ORAL , Notes to Pharmacist: *Reorder from [facility] for eRx and Interaction Alerts* Objective: * Vitals:? Assessment: * Assessment: 1.?Madrigal catheter in place - Z92.89 (Primary)???2.?Recurrent UTI - N39.0??? Plan: * Treatment: Forms: Care Plan: * Problems:? * Billing Information: * Visit Code:? * Procedure Codes:? * Electronic signature of BRANDAN Veloz on 12/17/2024 at 03:54 PM MATERIAL CONTROL SPECIALIST Sign off status: Pending * Provider:?BRANDAN Casillas Date:?11/19/2024 Generated for Taylor rodriguez/Maricruz/eTboazsmitting on:?12/17/2024 03:54 PM MATERIAL CONTROL SPECIALIST History and Physical Notes * HPI (History of Present Illness) Category Sub-Category Detail Notes Category Not es Provider Note Patient is a 79-year-old male who presents to clinic for new patient evaluation The only thing we received out of the referral was that the patient has a UTI and a catheter From a little bit of information I was able to retrieve from the 2 sheets of paper that were sent from [facility] the patient has a chronic Madrigal Since he has a chronic catheter, 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 Montano for recurrent UTIs and possible prophylaxis
--- OUTSIDE RECORDS SUMMARY | 2024-12-17 15:55 | XMS_ITS ---
Author Organization [facility] Address [address] [facility] [address] Care Team Providers Care Infantry Officer Name Role Phone Yessy Rea Unavailable [phone] Dominic Adams DO Unavailable Unavailable Duane Duran Unavailable [phone] Encounters Encounter Location Date Provider Diagnosis [facility] [address] [place] [address] [address] [place] [address] 11/19/2024 Duane Duran Plan Of Treatment No Information Progress Notes * Ben OCHOA MDOB:1945 (79 yo M)Acc No.[id number]:11/19/2024 Patient:?Ben OCHOA :1945???Age:79 Y???Sex:Male Address:[address] [place] [address] * true * Date:? Generated for Claudiai michael/Maricruz/eTransmitting on:?12/17/2024 03:55 PM LAWYER
--- OUTSIDE RECORDS SUMMARY | 2024-12-17 15:55 | XMS_ITS | Encounter Summary ---
Author Organization [facility] Address [address] [place] [address] Care Team Providers Care Freight Router Name Role Phone Unavailable Primary Care Provider Unavailabl e Encounter Details Date Type Department Care Team (Late st Contact Info) Description 03/06/2021 Lab Requisition [facility] Laboratory Services [address] [place] [address] Cindy Squires NP NO ADDRESS [...] Associated Diagnosis Comments RENAL FUNCTION PANEL Stat 03/06/2021 3:45 AM CDT documented in this encounter Results * (ABNORMAL) RENAL FUNCTION PANEL (03/06/2021 3:45 AM CDT) SODIUM 160(H) 136 - 145 mmol/L 03/06/2021 5:52 AM CDT [facility]OR[facility] POTASSIUM 4.3 3.5 - 5.1 mmol/L 03/06/2021 5:[address] [facility] CHLORIDE 124(H) 98 - 107 mmol/L 03/06/2021 5:[address] [facility] CO2 30(H) 22 - 29 mmol/L 03/06/2021 5:[address] [facility] CALCIUM 8.2(L) 8.8 - 10.2 mg/dL 03/06/2021 5:52 AM CDT [facility] LABORATORY [facility] BUN 42(H) 8 - 23 mg/dL 03/06/2021 5:52 AM [facility] CREATININE 1.43(H) 0.67 - 1.17 mg/dL 03/06/2021 5:52 AM [facility] Comment:The GFR result is no t clinically significant on patients <18 or >70 years of age. GLUCOSE 120(H) 74 - 99 mg/dL 03/06/2021 5:52 AM [facility] ALBUMIN 2.5(L) 3.5 - 5.2 g/dL 03/06/2021 5:52 AM [facility] PHOSPHORUS 2.7 2.5 - 4.5 mg/dL 03/06/2021 5:52 AM [facility] GFR 48 mL/min/1. 73 sq meter 03/06/2021 5:52 AM [facility] Comment: eGFR has not been validated [...] please refer to the GFR result. GFR, 58 mL/min/1. 73 sq meter 03/06/2021 5:[address] [facility] ANION GAP 6(L) 9 - 20 mmol/L 03/06/2021 5:[address] [facility] Blood Collection / Unknown 03/06/2021 3:45 AM CDT 03/06/2021 5:27 AM CDT us Cindy Squires NP CHEMISTRY ORDERABLES Final Resu lt [facility] [address] [place] [address] documented in this encounter Visit Diagnoses Not on filedocumented in this encounter
--- OUTSIDE RECORDS SUMMARY | 2024-12-17 15:56 | XMS_ITS | Continuity of Care Document ---
Author Organization [facility] ([facility]) Address [address] [place] [address] Insurance Providers Payer Plan Claims Address Claims Phone Policy Number Group Number Relation Employer Guarantor Name Guarantor Guarantor Address Guarantor Phone MEDIC AID [address], [place] [address] [id number] Self Ben Amaya Gabriela [address] [place] [id number] [place] Medic aid [address], [place] [address] tel:[phone] Self Ben Amaya Gabriela [address] [place] [id number] Problems Condition ICD9 code ICD10 code SNOMED code Start Date End Date S tatus Non-ST elevation (NSTEMI) myocardial infarction I21.4 10/27/2024 Act veronique Influenza due to identified novel influenza A virus with other respiratory manifestations J09.X2 11/19/2024 Active Chronic respiratory failure, unspecified whether with hypoxia or hypercapnia J96.10 11/15/2024 Active Unspecified protein-calorie malnutrition E46 11/28/2024 Active Results Test Value / Unit Interpretation Reference Ran ge COVID-19 Test Viral Antigen null flavor [null] See note NEG COVID-19 Test Viral Antigen COVID-19 Test Viral Antigen null flavor [null] See note NEG COVID-19 Test Viral Antigen COVID-19 Test Viral Antigen null flavor [null] See note NEG COVID-19 Test Viral Antigen COVID-19 Test Viral Antigen null flavor [null] See note NEG COVID-19 Test Viral Antigen COVID-19 Test Viral Antigen null flavor [null] See note NEG COVID-19 Test Viral Antigen COVID-19 Test Viral Antigen null flavor [null] See note NEG COVID-19 Test Viral Antigen Allergies, adverse reactions, alerts No known allergies and adverse reactions Medications Medication Instructions Route Dosage Frequency Start Date Stop Date Indications Status ondansetron 4 mg tablet,disinte grating (ondansetron) 1, oral, Three Times A Day oral 1.0 8.0 h 11/10/19 25 2024 Active ondansetron 4 mg tablet,disinte grating (ondansetron) 1, oral, Three Times A Day - PRN, 1 TID PRN CLINICAL INDICATIONS: N/V oral 1.0 8.0 h 11/13/19 25 2024 Active ondansetron 4 mg tablet,disinte grating (ondansetron) 1, oral, Three Times A Day, 1 TID PRN CLINICAL INDICATIONS: N/V oral 1.0 8.0 h 11/13/19 25 2024 Active cefdinir 300 mg capsule (cefdinir) 1, oral, Twice A Day oral 1.0 12.0 h 11/19/19 25 2024 Active oseltamivir 75 mg capsule (oseltamivir) 1, oral, Twice A Day oral 1.0 12.0 h 11/19/192024 Active Prozac (fluoxetine) 10 mg capsule (Prozac (fluoxetine)) 1, oral, At Bedtime oral 1.0 12/04/19 Active Vital Signs Date Vital Result Comment 11/07/2024 06:43 AM Temperature 97.8 [degF] Respiratory Rate 18 /min Heart Rate 75 /min Blood Pressure Systolic 136 mm[Hg] Blood Pressure Diastolic 71 mm[Hg] 11/07/2024 06:42 AM Oxygen Saturation 97 % 11/06/2024 09:00 PM Temperature 97 [degF] Respiratory Rate 16 /min Heart Rate 80 /min Blood Pressure Systolic 132 mm[Hg] Blood Pressure Diastolic 80 mm[Hg] 11/06/2024 08:39 PM Oxygen Saturation 95 % 11/08/2024 07:03 AM Temperature 98.2 [degF] Oxygen Saturation 96 % Respiratory Rate 19 /min Heart Rate 74 /min Blood Pressure Systolic 129 mm[Hg] Blood Pressure Diastolic 72 mm[Hg] 11/07/2024 09:11 PM Temperature 98 [degF] Respiratory Rate 18 /min Heart Rate 80 /min Blood Pressure Systolic 122 mm[Hg] Blood Pressure Diastolic 88 mm[Hg] 11/07/2024 09:10 PM Oxygen Saturation 95 % 11/08/2024 09:27 PM Temperature 98 [degF] Respiratory Rate 16 /min Heart Rate 78 /min Blood Pressure Systolic 122 mm[Hg] Blood Pressure Diastolic 86 mm[Hg] 11/08/2024 09:26 PM Oxygen Saturation 95 % 11/09/2024 10:01 PM Temperature 98 [degF] Respiratory Rate 20 /min Heart Rate 80 /min 11/09/2024 06:40 AM Temperature 98.2 [degF] Oxygen Saturation 97 % Respiratory Rate 15 /min Heart Rate 80 /min Blood Pressure Systolic 126 mm[Hg] Blood Pressure Diastolic 74 mm[Hg] 11/09/2024 10:00 PM Oxygen Saturation 95 % 11/10/2024 10:01 AM Body Weight 157 [lb_av] Body Mass Index 20.16 kg/m2 11/10/2024 08:56 AM Temperature 97.9 [degF] Oxygen Saturation 100 % Respiratory Rate 17 /min Heart Rate 100 /min Blood Pressure Systolic 139 mm[Hg] Blood Pressure Diastolic 81 mm[Hg] 11/10/2024 09:00 PM Temperature 98.2 [degF] Oxygen Saturation 97 % Respiratory Rate 21 /min Heart Rate 85 /min Blood Pressure Systolic 122 mm[Hg] Blood Pressure Diastolic 79 mm[Hg] 11/11/2024 06:44 AM Temperature 97.8 [degF] Oxygen Saturation 95 % Respiratory Rate 19 /min Heart Rate 68 /min Blood Pressure Systolic 132 mm[Hg] Blood Pressure Diastolic 69 mm[Hg] 11/12/2024 03:02 PM Body Weight 157 [lb_av] Body Mass Index 20.16 kg/m2 11/11/2024 08:50 PM Temperature 98.1 [degF] Oxygen Saturation 96 % Respiratory Rate 20 /min Heart Rate 56 /min Blood Pressure Systolic 111 mm[Hg] Blood Pressure Diastolic 75 mm[Hg] 11/12/2024 07:34 AM Temperature 97.1 [degF] Oxygen Saturation 94 % Respiratory Rate 20 /min Heart Rate 100 /min Blood Pressure Systolic 150 mm[Hg] Blood Pressure Diastolic 70 mm[Hg] 11/13/2024 06:46 AM Temperature 98 [degF] Oxygen Saturation 96 % Respiratory Rate 18 /min Heart Rate 74 /min Blood Pressure Systolic 130 mm[Hg] Blood Pressure Diastolic 74 mm[Hg] 11/12/2024 10:42 PM Temperature 97.6 [degF] Oxygen Saturation 97 % Respiratory Rate 22 /min Heart Rate 72 /min Blood Pressure Systolic 135 mm[Hg] Blood Pressure Diastolic 80 mm[Hg] 11/14/2024 08:55 AM Temperature 98.4 [degF] Respiratory Rate 18 /min Heart Rate 79 /min Blood Pressure Systolic 142 mm[Hg] Blood Pressure Diastolic 77 mm[Hg] 11/14/2024 08:53 AM Oxygen Saturation 94 % 11/14/2024 08:53 PM Oxygen Saturation 95 % 11/15/2024 08:53 AM Oxygen Saturation 98 % 11/15/2024 08:54 AM Temperature 98 [degF] Respiratory Rate 20 /min Heart Rate 70 /min Blood Pressure Systolic 128 mm[Hg] Blood Pressure Diastolic 72 mm[Hg] 11/14/2024 08:55 PM Temperature 97 [degF] Respiratory Rate 16 /min Heart Rate 80 /min Blood Pressure Systolic 126 mm[Hg] Blood Pressure Diastolic 80 mm[Hg] 11/16/2024 09:59 AM Temperature 97.9 [degF] Respiratory Rate 20 /min Heart Rate 86 /min Blood Pressure Systolic 127 mm[Hg] Blood Pressure Diastolic 69 mm[Hg] 11/16/2024 09:58 AM Oxygen Saturation 93 % 11/15/2024 11:19 PM Temperature 98 [degF] Respiratory Rate 16 /min Heart Rate 70 /min Blood Pressure Systolic 130 mm[Hg] Blood Pressure Diastolic 78 mm[Hg] 11/15/2024 11:18 PM Oxygen Saturation 95 % 11/16/2024 10:04 PM Temperature 98 [degF] Respiratory Rate 16 /min Heart Rate 70 /min Blood Pressure Systolic 126 mm[Hg] Blood Pressure Diastolic 80 mm[Hg] 11/16/2024 10:02 PM Oxygen Saturation 95 % 11/17/2024 08:49 AM Oxygen Saturation 92 % 11/17/2024 08:52 AM Respiratory Rate 18 /min Heart Rate 68 /min Blood Pressure Systolic 138 mm[Hg] Blood Pressure Diastolic 61 mm[Hg] 11/17/2024 10:19 PM Temperature 97.1 [degF] Oxygen Saturation 96 % Respiratory Rate 21 /min Heart Rate 79 /min Blood Pressure Systolic 113 mm[Hg] Blood Pressure Diastolic 55 mm[Hg] 11/17/2024 03:07 PM Body Weight 159 [lb_av] Body Mass Index 20.41 kg/m2 11/17/2024 08:50 AM Temperature 98 [degF] 11/18/2024 10:47 AM Temperature 98 [degF] Oxygen Saturation 95 % Respiratory Rate 20 /min Heart Rate 76 /min Blood Pressure Systolic 118 mm[Hg] Blood Pressure Diastolic 63 mm[Hg] 11/18/2024 08:09 PM Temperature 98.4 [degF] Oxygen Saturation 93 % Respiratory Rate 18 /min Heart Rate 77 /min Blood Pressure Systolic 120 mm[Hg] Blood Pressure Diastolic 60 mm[Hg] 11/20/2024 09:26 AM Body Weight 151.4 [lb_av] Body Mass Index 19.44 kg/m2 11/20/2024 07:00 AM Temperature 98.6 [degF] Oxygen Saturation 93 % Respiratory Rate 19 /min Heart Rate 75 /min Blood Pressure Systolic 122 mm[Hg] Blood Pressure Diastolic 68 mm[Hg] 11/19/2024 09:18 PM Temperature 98.8 [degF] Respiratory Rate 20 /min Heart Rate 80 /min Blood Pressure Systolic 118 mm[Hg] Blood Pressure Diastolic 64 mm[Hg] 11/19/2024 09:17 PM Oxygen Saturation 92 % 11/21/2024 06:36 AM Temperature 98.6 [degF] Respiratory Rate 18 /min Heart Rate 77 /min Blood Pressure Systolic 128 mm[Hg] Blood Pressure Diastolic 62 mm[Hg] 11/21/2024 06:35 AM Oxygen Saturation 94 % 11/20/2024 08:28 PM Temperature 98 [degF] Respiratory Rate 16 /min Heart Rate 70 /min Blood Pressure Systolic 132 mm[Hg] Blood Pressure Diastolic 80 mm[Hg] 11/20/2024 08:27 PM Oxygen Saturation 95 % 11/22/2024 06:45 AM Temperature 98.5 [degF] Oxygen Saturation 96 % Respiratory Rate 19 /min Heart Rate 88 /min Blood Pressure Systolic 136 mm[Hg] Blood Pressure Diastolic 72 mm[Hg] 11/21/2024 08:17 PM Temperature 98 [degF] Respiratory Rate 16 /min Heart Rate 78 /min Blood Pressure Systolic 126 mm[Hg] Blood Pressure Diastolic 80 mm[Hg] 11/21/2024 08:16 PM Oxygen Saturation 95 % 11/22/2024 07:50 PM Temperature 97 [degF] Respiratory Rate 16 /min Heart Rate 78 /min Blood Pressure Systolic 136 mm[Hg] Blood Pressure Diastolic 88 mm[Hg] 11/22/2024 07:49 PM Oxygen Saturation 95 % 11/23/2024 08:08 AM Temperature 98.1 [degF] Oxygen Saturation 99 % Respiratory Rate 20 /min Heart Rate 66 /min Blood Pressure Systolic 116 mm[Hg] Blood Pressure Diastolic 56 mm[Hg] 11/24/2024 08:11 AM Temperature 98.6 [degF] Oxygen Saturation 96 % Respiratory Rate 16 /min Heart Rate 84 /min Blood Pressure Systolic 135 mm[Hg] Blood Pressure Diastolic 72 mm[Hg] 11/24/2024 09:01 PM Temperature 98.2 [degF] Oxygen Saturation 97 % Respiratory Rate 18 /min Heart Rate 80 /min Blood Pressure Systolic 138 mm[Hg] Blood Pressure Diastolic 76 mm[Hg] 11/25/2024 07:26 PM Temperature 97.8 [degF] Oxygen Saturation 98 % Respiratory Rate 19 /min Heart Rate 83 /min Blood Pressure Systolic 142 mm[Hg] Blood Pressure Diastolic 78 mm[Hg] 11/25/2024 07:03 AM Temperature 98.6 [degF] Oxygen Saturation 96 % Respiratory Rate 20 /min Heart Rate 79 /min Blood Pressure Systolic 126 mm[Hg] Blood Pressure Diastolic 75 mm[Hg] 11/26/2024 07:43 PM Temperature 98 [degF] Oxygen Saturation 96 % Respiratory Rate 17 /min Heart Rate 78 /min Blood Pressure Systolic 120 mm[Hg] Blood Pressure Diastolic 66 mm[Hg] 11/26/2024 04:44 PM Body Weight 152 [lb_av] Body Mass Index 19.51 kg/m2 11/26/2024 08:59 AM Temperature 98.1 [degF] Oxygen Saturation 95 % Respiratory Rate 20 /min Heart Rate 80 /min Blood Pressure Systolic 113 mm[Hg] Blood Pressure Diastolic 70 mm[Hg] 11/27/2024 08:00 PM Temperature 98.4 [degF] Oxygen Saturation 96 % Respiratory Rate 19 /min Heart Rate 86 /min Blood Pressure Systolic 128 mm[Hg] Blood Pressure Diastolic 76 mm[Hg] 11/27/2024 06:46 AM Temperature 98.2 [degF] Oxygen Saturation 95 % Respiratory Rate 18 /min Heart Rate 82 /min Blood Pressure Systolic 122 mm[Hg] Blood Pressure Diastolic 72 mm[Hg] 11/28/2024 02:59 PM Temperature 98.6 [degF] Respiratory Rate 20 /min Heart Rate 65 /min Blood Pressure Systolic 119 mm[Hg] Blood Pressure Diastolic 69 mm[Hg] 11/28/2024 09:14 AM Oxygen Saturation 95 % 11/29/2024 04:17 AM Temperature 98 [degF] Respiratory Rate 16 /min Heart Rate 70 /min Blood Pressure Systolic 120 mm[Hg] Blood Pressure Diastolic 70 mm[Hg] 11/28/2024 10:56 PM Oxygen Saturation 95 % 11/29/2024 10:25 PM Temperature 98 [degF] Respiratory Rate 16 /min Heart Rate 68 /min Blood Pressure Systolic 134 mm[Hg] Blood Pressure Diastolic 80 mm[Hg] 11/29/2024 09:33 PM Oxygen Saturation 96 % 11/29/2024 10:45 AM Temperature 97.4 [degF] Oxygen Saturation 98 % Respiratory Rate 19 /min Heart Rate 88 /min Blood Pressure Systolic 175 mm[Hg] Blood Pressure Diastolic 93 mm[Hg] 11/29/2024 09:46 AM Oxygen Saturation 98 % 11/29/2024 09:44 AM Oxygen Saturation 98 % 11/30/2024 07:41 AM Oxygen Saturation 96 % 11/30/2024 07:36 AM Temperature 97.8 [degF] Oxygen Saturation 96 % Respiratory Rate 20 /min Heart Rate 105 /min Blood Pressure Systolic 135 mm[Hg] Blood Pressure Diastolic 58 mm[Hg] 11/30/2024 07:35 AM Oxygen Saturation 96 % 12/01/2024 02:17 AM Temperature 98 [degF] Respiratory Rate 18 /min Heart Rate 70 /min Blood Pressure Systolic 122 mm[Hg] Blood Pressure Diastolic 80 mm[Hg] 12/01/2024 01:57 AM Oxygen Saturation 95 % 12/01/2024 09:23 PM Temperature 98.1 [degF] Oxygen Saturation 96 % Respiratory Rate 20 /min Heart Rate 53 /min Blood Pressure Systolic 123 mm[Hg] Blood Pressure Diastolic 70 mm[Hg] 12/01/2024 05:36 PM Temperature 97.6 [degF] Oxygen Saturation 94 % Respiratory Rate 20 /min Heart Rate 77 /min Blood Pressure Systolic 131 mm[Hg] Blood Pressure Diastolic 80 mm[Hg] 12/02/2024 09:52 AM Temperature 97.1 [degF] Respiratory Rate 18 /min Heart Rate 88 /min Blood Pressure Systolic 141 mm[Hg] Blood Pressure Diastolic 89 mm[Hg] 12/02/2024 09:51 AM Oxygen Saturation 97 % 12/03/2024 09:16 AM Body Weight 150 [lb_av] Body Mass Index 19.26 kg/m2 12/03/2024 05:52 AM Temperature 97.1 [degF] Oxygen Saturation 95 % Respiratory Rate 16 /min Heart Rate 75 /min Blood Pressure Systolic 150 mm[Hg] Blood Pressure Diastolic 101 mm[Hg] 12/02/2024 06:42 PM Temperature 97.3 [degF] Oxygen Saturation 98 % Respiratory Rate 20 /min Heart Rate 93 /min Blood Pressure Systolic 112 mm[Hg] Blood Pressure Diastolic 52 mm[Hg] 12/04/2024 06:40 AM Temperature 98.2 [degF] Respiratory Rate 19 /min Heart Rate 88 /min Blood Pressure Systolic 140 mm[Hg] Blood Pressure Diastolic 65 mm[Hg] 12/04/2024 06:39 AM Oxygen Saturation 95 % 12/03/2024 07:49 PM Temperature 98.1 [degF] Oxygen Saturation 94 % Respiratory Rate 21 /min Heart Rate 96 /min Blood Pressure Systolic 158 mm[Hg] Blood Pressure Diastolic 51 mm[Hg] 12/05/2024 07:02 AM Temperature 98.3 [degF] Respiratory Rate 18 /min Heart Rate 63 /min Blood Pressure Systolic 122 mm[Hg] Blood Pressure Diastolic 72 mm[Hg] 12/05/2024 06:16 AM Oxygen Saturation 97 % 12/04/2024 11:51 PM Temperature 98 [degF] Respiratory Rate 18 /min Heart Rate 80 /min Blood Pressure Systolic 110 mm[Hg] Blood Pressure Diastolic 88 mm[Hg] 12/04/2024 08:40 PM Oxygen Saturation 95 % 12/05/2024 11:10 PM Temperature 97 [degF] Respiratory Rate 18 /min Heart Rate 70 /min Blood Pressure Systolic 126 mm[Hg] Blood Pressure Diastolic 87 mm[Hg] 12/05/2024 11:09 PM Oxygen Saturation 95 % 12/06/2024 06:12 AM Temperature 98.2 [degF] Oxygen Saturation 96 % Respiratory Rate 20 /min Heart Rate 88 /min Blood Pressure Systolic 132 mm[Hg] Blood Pressure Diastolic 78 mm[Hg] 12/07/2024 06:16 AM Temperature 97.9 [degF] Respiratory Rate 18 /min Heart Rate 76 /min Blood Pressure Systolic 124 mm[Hg] Blood Pressure Diastolic 67 mm[Hg] 12/07/2024 06:15 AM Oxygen Saturation 97 % 12/07/2024 12:13 AM Temperature 98 [degF] Respiratory Rate 16 /min Heart Rate 80 /min Blood Pressure Systolic 122 mm[Hg] Blood Pressure Diastolic 84 mm[Hg] 12/06/2024 10:39 PM Oxygen Saturation 95 % 12/07/2024 10:01 PM Temperature 97 [degF] Respiratory Rate 16 /min Heart Rate 70 /min Blood Pressure Systolic 112 mm[Hg] Blood Pressure Diastolic 78 mm[Hg] 12/07/2024 09:59 PM Oxygen Saturation 95 % 12/08/2024 01:22 PM Temperature 97.3 [degF] Oxygen Saturation 98 % Respiratory Rate 16 /min Heart Rate 81 /min Blood Pressure Systolic 135 mm[Hg] Blood Pressure Diastolic 93 mm[Hg] 12/09/2024 06:45 AM Temperature 97.5 [degF] Respiratory Rate 18 /min Heart Rate 90 /min Blood Pressure Systolic 122 mm[Hg] Blood Pressure Diastolic 75 mm[Hg] 12/09/2024 06:44 AM Oxygen Saturation 96 % 12/09/2024 12:37 AM Temperature 97 [degF] Respiratory Rate 16 /min Heart Rate 95 /min Blood Pressure Systolic 117 mm[Hg] Blood Pressure Diastolic 56 mm[Hg] 12/09/2024 12:36 AM Oxygen Saturation 97 % 12/09/2024 07:16 PM Temperature 97.5 [degF] Oxygen Saturation 92 % Respiratory Rate 18 /min Heart Rate 98 /min Blood Pressure Systolic 82 mm[Hg] Blood Pressure Diastolic 47 mm[Hg] 12/10/2024 09:01 PM Temperature 97.8 [degF] Oxygen Saturation 95 % Respiratory Rate 18 /min Heart Rate 72 /min Blood Pressure Systolic 128 mm[Hg] Blood Pressure Diastolic 68 mm[Hg] 12/10/2024 02:09 PM Body Weight 151 [lb_av] Body Mass Index 19.39 kg/m2 12/10/2024 08:08 AM Temperature 97.2 [degF] Oxygen Saturation 96 % Respiratory Rate 20 /min Heart Rate 76 /min Blood Pressure Systolic 140 mm[Hg] Blood Pressure Diastolic 61 mm[Hg] 12/11/2024 06:21 AM Temperature 98 [degF] Oxygen Saturation 97 % Respiratory Rate 19 /min Heart Rate 82 /min Blood Pressure Systolic 132 mm[Hg] Blood Pressure Diastolic 72 mm[Hg] 12/11/2024 08:05 PM Temperature 98.4 [degF] Respiratory Rate 19 /min Heart Rate 77 /min Blood Pressure Systolic 142 mm[Hg] Blood Pressure Diastolic 74 mm[Hg] 12/11/2024 08:04 PM Oxygen Saturation 96 % 12/12/2024 10:27 PM Oxygen Saturation 95 % 12/12/2024 07:20 AM Temperature 98.2 [degF] Oxygen Saturation 95 % Respiratory Rate 18 /min Heart Rate 74 /min Blood Pressure Systolic 134 mm[Hg] Blood Pressure Diastolic 78 mm[Hg] 12/13/2024 11:34 AM Body Weight 150 [lb_av] Body Mass Index 19.26 kg/m2 12/13/2024 09:38 AM Temperature 98.1 [degF] Oxygen Saturation 97 % Respiratory Rate 20 /min Heart Rate 69 /min Blood Pressure Systolic 129 mm[Hg] Blood Pressure Diastolic 74 mm[Hg] 12/13/2024 02:35 AM Temperature 97 [degF] Respiratory Rate 18 /min Heart Rate 70 /min Blood Pressure Systolic 126 mm[Hg] Blood Pressure Diastolic 88 mm[Hg] 12/13/2024 02:34 AM Oxygen Saturation 95 % 12/14/2024 09:13 AM Temperature 98.8 [degF] Oxygen Saturation 98 % Respiratory Rate 20 /min Heart Rate 75 /min Blood Pressure Systolic 134 mm[Hg] Blood Pressure Diastolic 78 mm[Hg] 12/13/2024 09:45 PM Temperature 97 [degF] Respiratory Rate 18 /min Heart Rate 88 /min Blood Pressure Systolic 122 mm[Hg] Blood Pressure Diastolic 70 mm[Hg] 12/13/2024 08:35 PM Oxygen Saturation 95 % 12/13/2024 05:11 PM Body Weight 150.4 [lb_av] Body Mass Index 19.31 kg/m2 12/14/2024 09:16 PM Temperature 98 [degF] Respiratory Rate 18 /min Heart Rate 80 /min Blood Pressure Systolic 135 mm[Hg] Blood Pressure Diastolic 80 mm[Hg] 12/14/2024 09:14 PM Oxygen Saturation 95 % 12/15/2024 07:50 PM Body Weight 151.2 [lb_av] Body Mass Index 19.41 kg/m2 12/15/2024 06:50 PM Temperature 97.1 [degF] Oxygen Saturation 98 % Respiratory Rate 16 /min Heart Rate 68 /min Blood Pressure Systolic 95 mm[Hg] Blood Pressure Diastolic 57 mm[Hg] 12/15/2024 12:44 PM Temperature 98 [degF] Oxygen Saturation 97 % Respiratory Rate 19 /min Heart Rate 99 /min Blood Pressure Systolic 126 mm[Hg] Blood Pressure Diastolic 68 mm[Hg] 12/16/2024 09:27 AM Temperature 98.3 [degF] Oxygen Saturation 97 % Respiratory Rate 24 /min Heart Rate 63 /min Blood Pressure Systolic 144 mm[Hg] Blood Pressure Diastolic 67 mm[Hg] 12/16/2024 09:26 AM Oxygen Saturation 97 % 12/16/2024 07:49 PM Temperature 97.9 [degF] Respiratory Rate 15 /min Heart Rate 73 /min Blood Pressure Systolic 97 mm[Hg] Blood Pressure Diastolic 51 mm[Hg] 12/16/2024 07:48 PM Oxygen Saturation 98 % Social History No smoking Hx information available Encounters Type CPT Code Date Location Provider Indication s encounter report 05/24/2016 04:2 0 PM - 09/23/2024 10:49 AM Dominic Adams DO 01 encounter report 05/24/2016 04:2 0 PM - 10/24/2024 12:27 PM Dominic Adams DO 01 encounter report 05/24/2016 04:2 0 PM - 11/19/2024 12:22 PM Dominic Adams DO 01 encounter report 05/24/2016 04:2 0 PM - 12/17/2024 09:53 AM Dominic Adams DO 01
--- OUTSIDE RECORDS SUMMARY | 2024-12-17 15:56 | XMS_ITS ---
Author Organization [facility] Address [address] [place] [address] Care Team Providers Care Hand Drawer In Helper Name Role Phone Yessy Rea Unavailable [phone] Dominic Adams DO Unavailable Unavailable Migration, Provider Unavailable Unavailable Allergies Allergen (clinical drug ingredient) Drug/Non Drug Allergy documented on EMR Reaction Allergy Type Onset Date Status Tetanus Toxoids Unknown Drug Allergy 05/10/2023 active REASON FOR VISIT EMR-Damir Medications Medication SIG (Take, Route, Frequency, Duration) Notes Start Date End Date Status acetaminophen 325 MG Oral Tablet [Mapap] ORAL *Reorder from [facility] for eRx and Interaction Alerts* 3 Active Finasteride 5 MG Oral 3 Active Tamsulosin HCl 0.4 MG Oral 3 Active Aspirin 81 81 MG Oral 3 Active Sulfamethoxazole 800 MG / Trimethoprim 160 MG Oral Tablet ORAL *Reorder from [facility] for eRx and Interaction Alerts* 3 Active carboxymethylcellulose sodium 5 MG/ML Ophthalmic Solution *Reorder from [facility] for eRx and Interaction Alerts* 3 Active pantoprazole 20 MG Delayed Release Oral Tablet ORAL *Reorder from [facility] for eRx and Interaction Alerts* 3 Active Bisacodyl Laxative 10 MG Rectal 3 Active [id number] 200 ACTUAT albuterol 0.09 MG/ACTUAT Metered Dose Inhaler INTRAPULMONARY *Reorder from [facility] for eRx and Interaction Alerts* 3 Active Encounters Encounter Location Date Provider Diagnosis Migrated_Facility 0 0 04/06/2024 Provider Migration Plan Of Treatment No Information Progress Notes * Ben OCHOA MDOB:1945 (79 yo M)Acc No.[id number]:04/06/2024 Patient:Ben ORR :1945???Age:78 Y???Sex:Male Address:[address] [place] [address] Subjective: * Chief Complaints: * ???EMR-Damir * Medical History:? * Surgical History:? * Hospitalization/Major Diagno stic Procedure:? * Medications:?TakingBisacodyl Laxative 10 MG Suppository Rectal Finasteride 5 MG Tablet Oral Tamsulosin HCl 0.4 MG Capsule Oral Aspirin 81 81 MG Tablet Delayed Release Oral Sulfamethoxazole 800 MG / Trimethoprim 160 MG Oral Tablet ORAL , Notes to Pharmacist: *Reorder from [facility] for eRx and Interaction Alerts*acetaminophen 325 MG Oral Tablet [Mapap] ORAL , Notes to Pharmacist: *Reorder from [facility] for eRx and Interaction Alerts*carboxymethylcellulose sodium 5 MG/ML Ophthalmic Solution , Notes to Pharmacist: *Reorder from [facility] for eRx and Interaction Alerts*[id number] 200 ACTUAT albuterol 0.09 MG/ACTUAT Metered Dose Inhaler INTRAPULMONARY , Notes to Pharmacist: *Reorder from [facility] for eRx and Interaction Alerts*pantoprazole 20 MG Delayed Release Oral Tablet ORAL , Notes to Pharmacist: *Reorder from [facility] for eRx and Interaction Alerts*Taking Bisacodyl Laxative 10 MG Suppository Rectal Taking Finasteride 5 MG Tablet Oral Taking Tamsulosin HCl 0.4 MG Capsule Oral Taking Aspirin 81 81 MG Tablet Delayed Release Oral Taking Sulfamethoxazole 800 MG / Trimethoprim 160 MG Oral Tablet ORAL , Notes to Pharmacist: *Reorder from [facility] for eRx and Interaction Alerts*Taking acetaminophen 325 MG Oral Tablet [Mapap] ORAL , Notes to Pharmacist: *Reorder from [facility] for eRx and Interaction Alerts*Taking carboxymethylcellulose sodium 5 MG/ML Ophthalmic Solution , Notes to Pharmacist: *Reorder from [facility] for eRx and Interaction Alerts*Taking [id number] 200 ACTUAT albuterol 0.09 MG/ACTUAT Metered Dose Inhaler INTRAPULMONARY , Notes to Pharmacist: *[facility] for [facility]Rx and Interaction Alerts*Taking pantoprazole 20 MG Delayed Release Oral Tablet ORAL , Notes to Pharmacist: *Reorder from [facility] for eRx and Interaction Alerts* * Allergies:?Tetanus Toxoids : Allergy - Onset Date 05/10/2023 Objective: * Vitals:? * Physical Examination:? Assessment: Plan: * Treatment: * Procedure Codes:? * * Date:?
--- OUTSIDE RECORDS SUMMARY | 2024-12-17 15:56 | XMS_ITS | Encounter Summary ---
Author Organization [facility] Address [address] [place] [address] Care Team Providers Care Solar Designer Name Role Phone Unavailable Primary Care Provider Unavailabl e Encounter Details Date Type Department Care Team (Late st Contact Info) Description 02/16/2020 Lab Requisition [facility] Laboratory Services [address] [place] [address] Dominic Adams, [address] [address] Social History Tobacco Use Types Packs/Day Years [...] Procedure Name Priority Date/Time Associated Diagnosis Comments HEMOGLOBIN A1C Routine 02/16/2020 12:58 PM CDT documented in this encounter Results * (ABNORMAL) HEMOGLOBIN A1C (02/16/2020 12:58 PM CDT) HEMOGLOBIN A1C 5.8(H) <=5.6 % 02/18/2020 12:55 PM CDT [facility] EST. AVG GLUCOSE, A1C 120 mg/dL 02/18/2020 12:55 PM CDT [facility] Blood 02/16/2020 12:5 8 PM CDT 02/16/2020 7:48 PM CDT Narrative [facility] - 02/18/2020 12:55 PM CDT HGB A1C INTERPRETATION NORMAL: ? <5.7% PRE-DIABETES: 5.7 - 6.4% DIABETES: ? 6.5% OR GREATER us Dominic Adams DO CHEMISTRY ORDERABLES Final Result Performing Organization Address City/State/[facility] Co de Phone Number [facility] LABORATORY SERVICES [facility]# [id number] [address] [place] [address] documented in this encounter Visit Diagnoses Not on filedocumented in this encounter
--- OUTSIDE RECORDS SUMMARY | 2024-12-17 15:56 | XMS_ITS | Clinical Summary ---
Author Organization [facility] Address [address] [place] [address] Phone Care Team Providers Care Data Keyer Name Role Phone Unavailable Primary Care Provider Unavailabl e Social History Tobacco Use Types Packs/Day Years Used Date Smoking Tobacco: Never Assessed Sex and Gender Information Value Date Recorded Sex Assigned at Not on file Legal Sex Male 3:02 PM CDT Gender Identity Not on file Sexual Orientation Not on file Plan of Treatment Health Maintenance Due Date Last Done Comments DTAP/TDAP/TD VACCINES (1 - Tdap) 1964 PNEUMOCOCCAL VACCINE 50+ YEARS (1 of 1 - PCV) 10/28/18 96 ZOSTER VACCINE (1 of 2) 1995 RSV VACCINE (60+ or ) (1 - 1-dose 75+ series) 2020 INFLUENZA VACCINE (#1) 2024 Insurance [place]ICAID [place]
--- OUTSIDE RECORDS SUMMARY | 2024-12-17 15:56 | XMS_ITS | Encounter Summary ---
Author Organization [facility] Address [address] [place] [address] Care Team Providers Care Child Nutrition Director Name Role Phone Unavailable Primary Care Provider Unavailabl e Encounter Details Date Type Department Care Team (Late st Contact Info) Description 03/07/2021 Lab Requisition [facility] Laboratory Services [address] [place] [address] Cindy Squires NP NO ADDRESS [...] Procedure Name Priority Date/Time Associated Diagnosis Comments CBC WITH DIFFERENTIAL Stat 03/07/2021 4:05 AM CDT RENAL FUNCTION PANEL Stat 03/07/2021 4:05 AM CDT documented in this encounter Results * (ABNORMAL) CBC WITH DIFFERENTIAL (03/07/2021 4:05 AM CDT) WBC 12.3(H) 4.8 - 10.8 K/uL 03/07/2021 5:20 AM CDT [facility] LABORATORY [facility] RBC 4.11(L) 4.60 - 6.20 M/uL 03/07/2021 5:20 AM CDT [facility] HEMOGLOBIN 10.4(L) 14.0 - 18.0 g/dL 03/07/2021 5:20 AM CDT [facility] HEMATOCRIT 36.0(L) 41.0 - 53.0 % 03/07/2021 5:20 AM CDT [facility] LABORATORY [facility] MCV 87.6 84.0 - 103.0 fL 03/07/2021 5:20 AM [facility] MCH 25.3(L) 27.0 - 34.0 pg 03/07/2021 5:20 AM [facility] MCHC 28.9(L) 30.0 - 35.0 g/dL 03/07/2021 5:20 AM [facility] RDW 17.7(H) 11.0 - 14.5 % 03/07/2021 5:20 AM [facility] RDW-STDEV 56.4(H) 37.0 - 54.0 fL 03/07/2021 5:20 AM [facility] PLATELETS 236 140 - 440 K/uL 03/07/2021 5:20 AM [facility] MPV 13.5(H) 8.9 - 12.8 fL 03/07/2021 5:20 AM [facility] NEUTROPHILS 77(H) 42 - 75 % 03/07/2021 5:20 AM [facility] LYMPHOCYTES 11(L) 24 - 44 % 03/07/2021 5:20 AM [facility] MONOCYTES 7 2 - 10 % 03/07/2021 5:20 AM [facility] EOSINOPHILS 3 0 - 7 % 03/07/2021 5:20 AM [facility] BASOPHILS 1 0 - 1 % 03/07/2021 5:20 AM [facility] IMMATURE GRANULOCYTES 2 0 - 2 % 03/07/2021 5:20 AM [facility] NEUTROPHIL ABSOLUTE 9.45(H) 2.00 - 8.00 K/uL 03/07/2021 5:20 AM [facility] LYMPHOCYTE ABSOLUTE 1.34 1.20 - 4.00 K/uL 03/07/2021 5:20 AM [facility] MONOCYTE ABSOLUTE 0.86(H) 0.10 - 0.60 K/uL 03/07/2021 5:20 AM CDT [facility] EOSINOPHIL ABSOLUTE 0.41 0.00 - 0.70 K/uL 03/07/2021 5:20 AM CDT [facility] BASOPHILS ABSOLUTE 0.06 0.00 - 0.20 K/uL 03/07/2021 5:20 AM CDT [facility] IMMATURE GRANULOCYTES ABSOLUTE 0.20(H) 0.00 - 0.10 K/uL 03/07/2021 5:20 AM T [facility] Blood Collection / Unknown 03/07/2021 4:05 AM CDT 03/07/2021 5:02 AM CDT us Cindy Squires NP HEMATOLOGY ORDERABLES Final Res ult [facility] [address] [place] [address] * (ABNORMAL) RENAL FUNCTION PANEL (03/07/2021 4:05 AM CDT) SODIUM 155(H) 136 - 145 mmol/L 03/07/2021 6:11 AM T [facility] POTASSIUM 4.6 3.5 - 5.1 mmol/L 03/07/2021 6:11 AM T [facility] CHLORIDE 119(H) 98 - 107 mmol/L 03/07/2021 6:11 AM [facility] CO2 30(H) 22 - 29 mmol/L 03/07/2021 6:11 AM [facility] CALCIUM 8.4(L) 8.8 - 10.2 mg/dL 03/07/2021 6:11 AM T [facility] BUN 36(H) 8 - 23 mg/dL 03/07/2021 6:11 AM [facility] CREATININE 1.23(H) 0.67 - 1.17 mg/dL 03/07/2021 6:11 AM T [facility] Comment:The GFR result is no t clinically significant on patients <18 or >70 years of age. GLUCOSE 116(H) 74 - 99 mg/dL 03/07/2021 6:11 AM T [facility] ALBUMIN 2.6(L) 3.5 - 5.2 g/dL 03/07/2021 6:11 AM [facility] PHOSPHORUS 2.8 2.5 - 4.5 mg/dL 03/07/2021 6:11 AM T [facility] GFR 57 mL/min/1. 73 sq meter 03/07/2021 6:11 AM [facility] Comment: eGFR has not been [...] result. GFR, >60 mL/min/1. 73 sq meter 03/07/2021 6:11 AM T [facility] ANION GAP 6(L) 9 - 20 mmol/L 03/07/2021 6:11 AM [facility] Blood Collection / Unknown 03/07/2021 4:05 AM CDT 03/07/2021 5:02 AM CDT us Cindy Squires NP CHEMISTRY ORDERABLES Final Resu lt [facility] [address] [place] [address] documented in this encounter Visit Diagnoses Not on filedocumented in this encounter
--- OUTSIDE RECORDS SUMMARY | 2024-12-17 15:56 | XMS_ITS | Encounter Summary ---
Author Organization [facility] Address [address] [place] [address] Care Team Providers Care Splunk Consultant Name Role Phone Unavailable Primary Care Provider Unavailabl e Encounter Details Date Type Department Care Team (Late st Contact Info) Description 03/14/2021 Lab Requisition [facility] Laboratory Services [address] [place] [address] Promise Cabral FNP NO ADDRESS ON FILE Social History Tobacco [...] Associated Diagnosis Comments CBC WITH DIFFERENTIAL Stat 03/14/2021 1:40 AM CDT RENAL FUNCTION PANEL Stat 03/14/2021 1:40 AM CDT documented in this encounter Results * (ABNORMAL) RENAL FUNCTION PANEL (03/14/2021 1:40 AM CDT) SODIUM 140 136 - 145 mmol/L 03/14/2021 5:59 AM CDT [facility] LABORATORY [facility] POTASSIUM 5.2(H) 3.5 - 5.1 mmol/L 03/14/2021 5:59 AM CDT [facility] LABORATORY [facility] CHLORIDE 105 98 - 107 mmol/L 03/14/2021 5:59 AM CDT [facility] LABORATORY [facility] CO2 28 22 - 29 mmol/L 03/14/2021 5:59 AM CDT [facility] LABORATORY [facility] CALCIUM 8.7(L) 8.8 - 10.2 mg/dL 03/14/2021 5:59 AM CDT [facility] BUN 41(H) 8 - 23 mg/dL 03/14/2021 5:59 AM [facility] CREATININE 1.25(H) 0.67 - 1.17 mg/dL 03/14/2021 5:59 AM [facility] Comment:The GFR result is no t clinically significant on patients <18 or >70 years of age. GLUCOSE 121(H) 74 - 99 mg/dL 03/14/2021 5:59 AM [facility] ALBUMIN 2.7(L) 3.5 - 5.2 g/dL 03/14/2021 5:59 AM [facility] PHOSPHORUS 3.4 2.5 - 4.5 mg/dL 03/14/2021 5:59 AM [facility] GFR 56 mL/min/1. 73 sq meter 03/14/2021 5:59 AM [facility] Comment: eGFR has not [...] result. GFR, >60 mL/min/1. 73 sq meter 03/14/2021 5:59 AM T [facility] ANION GAP 7(L) 9 - 20 mmol/L 03/14/2021 5:59 AM [facility] Blood Collection / Unknown 03/14/2021 1:40 AM CDT 03/14/2021 5:41 AM CDT Promise GIPSON CHEMISTRY ORDERABLES Final Result [facility] [address] [place] [address] * (ABNORMAL) CBC WITH DIFFERENTIAL (03/14/2021 1:40 AM CDT) [facility] WBC 9.2 4.8 - 10.8 K/uL 03/14/2021 5:54 AM CDT [facility] RBC 3.60(L) 4.60 - 6.20 M/uL 03/14/2021 5:54 AM T [facility] HEMOGLOBIN 9.1(L) 14.0 - 18.0 g/dL 03/14/2021 5:54 AM [facility] HEMATOCRIT 31.3(L) 41.0 - 53.0 % 03/14/2021 5:54 AM [facility] MCV 86.9 84.0 - 103.0 fL 03/14/2021 5:54 AM [facility] MCH 25.3(L) 27.0 - 34.0 pg 03/14/2021 5:54 AM [facility] MCHC 29.1(L) 30.0 - 35.0 g/dL 03/14/2021 5:54 AM [facility] RDW 16.1(H) 11.0 - 14.5 % 03/14/2021 5:54 AM [facility] RDW-STDEV 51.1 37.0 - 54.0 fL 03/14/2021 5:54 AM [facility] PLATELETS 220 140 - 440 K/uL 03/14/2021 5:54 AM [facility] MPV 14.2(H) 8.9 - 12.8 fL 03/14/2021 5:54 AM [facility] NEUTROPHILS 70 42 - 75 % 03/14/2021 5:54 [facility]MP[facility] 15(L) 24 - 44 % 03/14/2021 5:54 AM [facility] MONOCYTES 10 2 - 10 % 03/14/2021 5:54 AM CDT [facility] EOSINOPHILS 3 0 - 7 % 03/14/2021 5:54 AM CDT [facility] BASOPHILS 1 0 - 1 % 03/14/2021 5:54 AM CDT [facility] IMMATURE GRANULOCYTES 1 0 - 2 % 03/14/2021 5:54 AM CDT [facility] NEUTROPHIL ABSOLUTE 6.46 2.00 - 8.00 K/uL 03/14/2021 5:54 AM CDT [facility] LYMPHOCYTE ABSOLUTE 1.33 1.20 - 4.00 K/uL 03/14/2021 5:54 AM CDT [facility] MONOCYTE ABSOLUTE 0.96(H) 0.10 - 0.60 K/uL 03/14/2021 5:54 AM CDT [facility] EOSINOPHIL ABSOLUTE 0.29 0.00 - 0.70 K/uL 03/14/2021 5:54 AM CDT [facility] BASOPHILS ABSOLUTE 0.05 0.00 - 0.20 K/uL 03/14/2021 5:54 AM CDT [facility] IMMATURE GRANULOCYTES ABSOLUTE 0.10 0.00 - 0.10 K/uL 03/14/2021 5:54 AM T [facility] Blood Collection / Unknown 03/14/2021 1:40 AM CDT 03/14/2021 5:30 AM CDT Promise Cabral ENHANCED ENVIRONMENTAL OPERATOR HEMATOLOGY ORDERABLES Final Result Performing Organization Address City/State/[facility] Co de Phone Number [facility] [address] [place] [address] documented in this encounter Visit Diagnoses Not on filedocumented in this encounter
--- OUTSIDE RECORDS SUMMARY | 2024-12-17 15:56 | XMS_ITS | Encounter Summary ---
Author Organization [facility] Address [address] [place] [address] Care Team Providers Care State Farm Agent Name Role Phone Unavailable Primary Care Provider Unavailabl e Encounter Details Date Type Department Care Team (Late st Contact Info) Description 03/10/2021 Lab Requisition [facility] Laboratory Services [address] [place] [address] Promise Cabral FNP NO ADDRESS [...] Associated Diagnosis Comments CBC WITH DIFFERENTIAL Stat 03/10/2021 2:45 AM CDT RENAL FUNCTION PANEL Stat 03/10/2021 2:45 AM CDT documented in this encounter Results * (ABNORMAL) CBC WITH DIFFERENTIAL (03/10/2021 2:45 AM CDT) WBC 12.5(H) 4.8 - 10.8 K/uL 03/10/2021 5:31 AM CDT [facility] LABORATORY [facility] RBC 3.92(L) 4.60 - 6.20 M/uL 03/10/2021 5:31 AM CDT [facility] HEMOGLOBIN 10.0(L) 14.0 - 18.0 g/dL 03/10/2021 5:31 AM CDT [facility] HEMATOCRIT 34.0(L) 41.0 - 53.0 % 03/10/2021 5:31 AM CDT [facility] MCV 86.7 84.0 - 103.0 fL 03/10/2021 5:31 AM [facility] MCH 25.5(L) 27.0 - 34.0 pg 03/10/2021 5:31 AM [facility] MCHC 29.4(L) 30.0 - 35.0 g/dL 03/10/2021 5:31 AM [facility] RDW 16.9(H) 11.0 - 14.5 % 03/10/2021 5:31 AM [facility] RDW-STDEV 53.5 37.0 - 54.0 fL 03/10/2021 5:31 AM [facility] PLATELETS 215 140 - 440 K/uL 03/10/2021 5:31 AM [facility] [employer] [facility] MPV 14.2(H) 8.9 - 12.8 fL 03/10/2021 5:31 AM [facility] NEUTROPHILS 76(H) 42 - 75 % 03/10/2021 5:31 AM [facility] LYMPHOCYTES 11(L) 24 - 44 % 03/10/2021 5:31 AM [facility] MONOCYTES 8 2 - 10 % 03/10/2021 5:31 AM [facility] [employer] [facility] EOSINOPHILS 2 0 - 7 % 03/10/2021 5:31 AM [facility] [employer] [facility] BASOPHILS 1 0 - 1 % 03/10/2021 5:31 AM [facility] IMMATURE GRANULOCYTES 1 0 - 2 % 03/10/2021 5:31 AM [facility] NEUTROPHIL ABSOLUTE 9.50(H) 2.00 - 8.00 K/uL 03/10/2021 5:31 AM [facility] LYMPHOCYTE ABSOLUTE 1.42 1.20 - 4.00 K/uL 03/10/2021 5:31 AM [facility] MONOCYTE ABSOLUTE 1.03(H) 0.10 - 0.60 K/uL 03/10/2021 5:31 AM CDT [facility] EOSINOPHIL ABSOLUTE 0.30 0.00 - 0.70 K/uL 03/10/2021 5:31 AM CDT [facility] BASOPHILS ABSOLUTE 0.07 0.00 - 0.20 K/uL 03/10/2021 5:31 AM CDT [facility] IMMATURE GRANULOCYTES ABSOLUTE 0.16(H) 0.00 - 0.10 K/uL 03/10/2021 5:31 AM T [facility] Blood Collection / Unknown 03/10/2021 2:45 AM CDT 03/10/2021 5:19 AM CDT Promise SALAZARP HEMATOLOGY ORDERABLES Final Result [facility] [address] [place] [address] * (ABNORMAL) RENAL FUNCTION PANEL (03/10/2021 2:45 AM CDT) SODIUM 145 136 - 145 mmol/L 03/10/2021 5:38 AM T [facility] POTASSIUM 5.2(H) 3.5 - 5.1 mmol/L 03/10/2021 5:38 AM [facility] CHLORIDE 108(H) 98 - 107 mmol/L 03/10/2021 5:38 AM [facility] CO2 29 22 - 29 mmol/L 03/10/2021 5:38 AM [facility] CALCIUM 8.6(L) 8.8 - 10.2 mg/dL 03/10/2021 5:38 AM T [facility] BUN 46(H) 8 - 23 mg/dL 03/10/2021 5:38 AM [facility] CREATININE 1.37(H) 0.67 - 1.17 mg/dL 03/10/2021 5:38 AM T [facility] Comment:The GFR result is no t clinically significant on patients <18 or >70 years of age. GLUCOSE 127(H) 74 - 99 mg/dL 03/10/2021 5:38 AM T [facility] ALBUMIN 2.8(L) 3.5 - 5.2 g/dL 03/10/2021 5:38 AM [facility] PHOSPHORUS 4.2 2.5 - 4.5 mg/dL 03/10/2021 5:38 AM T [facility] GFR 51 mL/min/1. 73 sq meter 03/10/2021 5:38 AM [facility] Comment: eGFR has not been validated [...] result. GFR, >60 mL/min/1. 73 sq meter 03/10/2021 5:38 AM T [facility] ANION GAP 8(L) 9 - 20 mmol/L 03/10/2021 5:38 AM [facility] Blood Collection / Unknown 03/10/2021 2:45 AM CDT 03/10/2021 5:19 AM CDT Promise GIPSON CHEMISTRY ORDERABLES Final Result [facility] [address] [place] [address] documented in this encounter Visit Diagnoses Not on filedocumented in this encounter
--- OUTSIDE RECORDS SUMMARY | 2024-12-17 15:57 | XMS_ITS | Encounter Summary ---
Author Organization [facility] Address [address] [place] [address] Care Team Providers Care Wire Brusher Name Role Phone Unavailable Primary Care Provider Unavailabl e Encounter Details Date Type Department Care Team (Late st Contact Info) Description 03/08/2021 Lab Requisition [facility] Laboratory [facility] [address] [place] [address] [place] [address] Cindy Squires, [place] NO ADDRESS ON FILE Social History Tobacco [...] Procedure Name Priority Date/Time Associated Diagnosis Comments BLOOD CULTURE Stat 03/08/2021 8:49 PM CDT documented in this encounter Results * BLOOD CULTURE (03/08/2021 8:49 PM CDT) BLOOD CULTURE No growth 03/14/2021 3:03 AM CDT [facility] Blood (Peripheral) Collection / Unknown 03/08/2021 8:49 PM CDT 03/09/2021 12:45 AM CDT us Cindy Squires NP MICROBIOLOGY - GENERAL ORDERABL ES Final Result [facility] Att[employer]ments[employer]me [facility] [address] [place], [place] [address] documented in this encounter Visit Diagnoses Not on filedocumented in this encounter
--- OUTSIDE RECORDS SUMMARY | 2024-12-17 15:57 | XMS_ITS | Encounter Summary ---
Author Organization [facility] Address [address] [place] [address] Care Team Providers Care Metal Extrusion Supervisor Name Role Phone Unavailable Primary Care Provider Unavailabl e Encounter Details Date Type Department Care Team (Late st Contact Info) Description 03/06/2021 Lab Requisition [facility] Laboratory Services [address] [place] [address] [place] [address] Cindy Squires NP NO ADDRESS [...] Procedure Name Priority Date/Time Associated Diagnosis Comments URINALYSIS WITH REFLEX CULTURE Stat 03/06/2021 11:43 AM CDT U[facility]A NITROGEN, RANDOM URINE Stat 03/06/2021 11:43 AM CDT ELECTROLYTES, RANDOM URINE Stat 03/06/2021 11:43 AM CDT PROTEIN , RANDOM URINE Stat 03/06/2021 11:43 AM CDT URINE CULTURE Routine 03/06/2021 11:43 AM CDT documented in this encounter Results * URINE CULTURE (03/06/2021 11:43 AM CDT) CULTURE No growth 03/07/2021 8:51 AM CDT [facility] [employer] [facility] Urine (Urine, straight in/out catheter) Collection / Unknown 03/06/2021 11:43 AM CDT 03/06/2021 2:03 PM CDT us Cindy Squires NP MICROBIOLOGY - GENERAL ORDERABL ES Final Result Performing Organization Address [facility] Co de Phone Number [phone] [place] [address] * (ABNORMAL) PROTEIN/CREATININE RATIO, URINE (03/06/2021 11:43 AM CDT) PROTEIN CONCENTRATION 48(H) 0 - 20 mg/dL 03/06/2021 1:55 PM CDT [facility] CREATININE, URINE 26.8(L) 40.0 - 278.0 mg/dL 03/06/2021 1:55 PM CDT [facility] Comment:Reference Range vari es with fluid intake and diet. PROTEIN/CREAT RATIO, URINE 1.79(H) 0.00 - 0.19 mg/mg Creatinine 03/06/2021 1:55 PM CDT [facility] Urine (Urine, straight in/out catheter) Collection / Unknown 03/06/2021 11:43 AM CDT 03/06/2021 1:13 PM CDT us Cindy Squires NP URINE ORDERABLES Final Result Performing Organization Address [facility] de Phone Number [phone] [place] [address] * ELECTROLYTES, RANDOM URINE (03/06/2021 11:43 AM CDT) SODIUM, URINE 118 mmol/L 03/06/2021 1:55 PM CDT [facility] POTASSIUM, URINE 39.0 mmol/L 03/06/2021 1:55 PM CDT [facility] CHLORIDE, URINE 81 mmol/L 03/06/2021 1:55 PM CDT [facility] Urine (Urine, straight in/out catheter) Collection / Unknown 03/06/2021 11:43 AM CDT 03/06/2021 1:13 PM CDT Narrative [facility] - 03/06/2021 1:55 PM CDT Reference Range Not Established us Cindy Squires TESTING LEAD URINE ORDERABLES Final Result Performing Organization Address [facility] Co de Phone Number [facility] [address] [place] [address] * (ABNORMAL) UREA NITROGEN/CREATININE RATIO, URINE (03/06/2021 11:43 AM CDT) UREA NITROGEN, URINE 430 mg/dL 03/06/2021 1:55 PM CDT [facility] Comment:Reference range not established CREATININE, URINE 26.8(L) 40.0 - 278.0 mg/dL 03/06/2021 1:55 PM CDT [facility] Comment:Reference Range vari es with fluid intake and diet. UREA/CREAT RATIO, UR 16.0 mg/mg Creatinine 03/06/2021 1:55 PM CDT [facility] Urine (Urine, straight in/out catheter) Collection / Unknown 03/06/2021 11:43 AM CDT 03/06/2021 1:13 PM CDT us Cindy Squires TESTING LEAD URINE ORDERABLES Final Result Performing Organization Address [facility] Co de Phone Number [facility] [address] [place] [address] * (ABNORMAL) URINALYSIS WITH REFLEX CULTURE (03/06/2021 11:43 AM CDT) COLOR UA Yellow Pale to dark yellow 03/06/2021 2:03 PM CDT [facility] CLARITY UA Cloudy(A) Clear 03/06/2021 2:03 PM CDT [facility] SPECIFIC GRAVITY UA 1.011 1.003 - 1.035 03/06/2021 2:03 PM CDT [facility] PH UA 9.0(A) 5.0 - 8.0 03/06/2021 2:03 PM CDT [facility] LEUKOCYTE ESTERASE UA 3+(A) Negative 03/06/2021 2:03 PM T [facility] NITRITE UA Negative Negative 03/06/2021 2:03 PM T [facility] PROTEIN UA 2+(A) Negative 03/06/2021 2:03 PM T [facility] GLUCOSE UA Negative Negative 03/06/2021 2:03 PM CDT [facility] KETONES UA Negative Negative 03/06/2021 2:03 PM T [facility] UROBILINOGEN UA <2.0 <2.0 mg/dL 2:03 PM T [facility] BILIRUBIN UA Negative Negative 03/06/2021 2:03 PM T [facility] BLOOD UA 2+(A) Negative 03/06/2021 2:03 PM [facility] WBC UA >100(A) 0 - 2 /hpf 03/06/2021 2:03 PM T [facility] RBC UA 26-50(A) 0 - 2 /hpf 03/06/2021 2:03 PM [facility] BACTERIA UA 1+(A) Negative /hpf 03/06/2021 2:03 PM [facility] Urine (Urine, straight in/out catheter) Collection / Unknown 03/06/2021 11:43 AM CDT 03/06/2021 1:08 PM CDT Narrative [facility] - 03/06/2021 2:03 PM CDT Based on results, a urine culture has been reflexed. Cindy Squires NP URINE ORDERABLES Final Result [facility] [address] [place] [address] documented in this encounter Visit Diagnoses Not on filedocumented in this encounter
--- OUTSIDE RECORDS SUMMARY | 2024-12-17 15:57 | XMS_ITS | Encounter Summary ---
Author Organization [facility] Address [address] [place] [address] Care Team Providers Care Warehouse Delivery Driver Name Role Phone Unavailable Primary Care Provider Unavailabl e Encounter Details Date Type Department Care Team (Late st Contact Info) Description 03/09/2021 Lab Requisition [facility] Laboratory Services [address] [place] [address] [place] [address] Cindy Squires NP NO ADDRESS [...] Associated Diagnosis Comments RENAL FUNCTION PANEL Stat 03/09/2021 3:10 AM CDT documented in this encounter Results * (ABNORMAL) RENAL FUNCTION PANEL (03/09/2021 3:10 AM CDT) SODIUM 149(H) 136 - 145 mmol/L 03/09/2021 6:17 AM CDT [facility] POTASSIUM 5.1 3.5 - 5.1 mmol/L 03/09/2021 6:17 AM CDT [facility] CHLORIDE 113(H) 98 - 107 mmol/L 03/09/2021 6:17 AM CDT [facility] [employer] [facility] CO2 27 22 - 29 mmol/L 03/09/2021 6:17 AM CDT [facility] CALCIUM 8.7(L) 8.8 - 10.2 mg/dL 03/09/2021 6:17 AM CDT [facility] [employer] [facility] BUN 38(H) 8 - 23 mg/dL 03/09/2021 6:17 AM CDT [facility] CREATININE 1.27(H) 0.67 - 1.17 mg/dL 03/09/2021 6:17 AM T [facility] Comment:The GFR result is no t clinically significant on patients <18 or >70 years of age. GLUCOSE 133(H) 74 - 99 mg/dL 03/09/2021 6:17 AM [facility] ALBUMIN 2.8(L) 3.5 - 5.2 g/dL 03/09/2021 6:17 AM T [facility] PHOSPHORUS 4.3 2.5 - 4.5 mg/dL 03/09/2021 6:17 AM T [facility] GFR 55 mL/min/1. 73 sq meter 03/09/2021 6:17 AM T [facility] Comment: eGFR has not been validated for [...] result. GFR, >60 mL/min/1. 73 sq meter 03/09/2021 6:17 AM T [facility] ANION GAP 9 9 - 20 mmol/L 03/09/2021 6:17 AM T [facility] Blood Venipuncture / Unknown 03/09/2021 3:10 AM CDT 03/09/2021 5:36 AM CDT us Cindy Squires NP CHEMISTRY ORDERABLES Final Resu lt [facility] [address] [place] [address] documented in this encounter Visit Diagnoses Not on filedocumented in this encounter
--- OUTSIDE RECORDS SUMMARY | 2024-12-17 15:57 | XMS_ITS | Encounter Summary ---
Author Organization [facility] Address [address] [place] [address] Care Team Providers Care Beam Builder Helper Name Role Phone Unavailable Primary Care Provider Unavailabl e Encounter Details Date Type Department Care Team (Late st Contact Info) Description 03/06/2021 Lab Requisition [facility] Laboratory Services E [employer] [address] [place] [address] [place] [address] [place] [address] Social History Tobacco Use Types [...] Procedure Name Priority Date/Time Associated Diagnosis Comments VANCOMYCIN LEVEL TROUGH Stat 03/06/2021 10:52 AM CDT documented in this encounter Results * (ABNORMAL) VANCOMYCIN LEVEL TROUGH (03/06/2021 10:52 AM CDT) VANCOMYCIN, TROUGH 18.6(H) 10.0 - 17.0 ug/mL 03/06/2021 1:44 PM CDT [facility] [employer] [facility] Blood Collection / Unknown 03/06/2021 10:52 AM CDT 03/06/2021 1:08 PM CDT us Girish Campos MD CHEMISTRY ORDERABLES Final Resu lt [facility] [employer] [facility] [address] [place] [address] documented in this encounter Visit Diagnoses Not on filedocumented in this encounter
--- OUTSIDE RECORDS SUMMARY | 2024-12-17 15:57 | XMS_ITS | Encounter Summary ---
Author Organization [facility] Address [address] [place] [address] Care Team Providers Care Wire Splicer Name Role Phone Unavailable Primary Care Provider Unavailabl e Encounter Details Date Type Department Care Team (Late st Contact Info) Description 03/08/2021 Lab Requisition [facility] Laboratory Services [address] [place] [address] [place] [address] Cindy Squires NP NO ADDRESS [...] Associated Diagnosis Comments COMPREHENSIVE METABOLIC PANEL Stat 03/08/2021 3:50 AM CDT documented in this encounter Results * (ABNORMAL) COMPREHENSIVE METABOLIC PANEL (03/08/2021 3:50 AM CDT) SODIUM 148(H) 136 - 145 mmol/L 03/08/2021 6:35 AM CDT [facility] POTASSIUM 4.6 3.5 - 5.1 mmol/L 03/08/2021 6:35 AM CDT [facility] CHLORIDE 114(H) 98 - 107 mmol/L 03/08/2021 6:35 AM CDT [facility] CO2 26 22 - 29 mmol/L 03/08/2021 6:35 AM CDT [facility] CALCIUM 8.5(L) 8.8 - 10.2 mg/dL 03/08/2021 6:35 AM CDT [facility] BUN 35(H) 8 - 23 mg/dL 03/08/2021 6:35 AM [facility] CREATININE 1.16 0.67 - 1.17 mg/dL 03/08/2021 6:35 AM [facility] Comment:The GFR result is no t clinically significant on patients <18 or >70 years of age. GLUCOSE 134(H) 74 - 99 mg/dL 03/08/2021 6:35 AM [facility] TOTAL PROTEIN 6.5 6.4 - 8.3 g/dL 03/08/2021 6:35 AM [facility] ALBUMIN 2.6(L) 3.5 - 5.2 g/dL 03/08/2021 6:35 AM [facility] BILIRUBIN TOTAL 0.3 0.2 - 1.0 mg/dL 03/08/2021 6:35 AM [facility] ALKALINE PHOSPHATASE 164(H) 40 - 129 U/L 03/08/2021 6:35 AM [facility] AST 15 10 - 50 U/L 03/08/2021 6:35 AM [facility] ALT 12 <=50 U/L 03/08/2021 6:35 AM [facility] GFR >60 mL/min/1.7 3 sq meter 03/08/2021 6:35 AM [facility] Comment: eGFR [...] refer to the GFR result. GFR, >60 mL/min/1.7 3 sq meter 03/08/2021 6:35 AM [facility] ANION GAP 8(L) 9 - 20 mmol/L 03/08/2021 6:35 AM [facility] Blood Collection / Unknown 03/08/2021 3:50 AM CDT 03/08/2021 5:16 AM CDT us Cindy Squires NP CHEMISTRY ORDERABLES Final Resu lt Performing Organization Address [facility] Co de Phone Number [facility] [address] [address] documented in this encounter Visit Diagnoses Not on filedocumented in this encounter
--- OUTSIDE RECORDS SUMMARY | 2024-12-17 15:57 | XMS_ITS | Patient Health Record ---
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) Referring Provider First Name Dominic Referring Provider Last Name Bryan Referring Provider Speciality Internal M edicine Referred Organization [facility] Referred Provider Duane Duran Referred Address [address],[place], [place],[address], Referred Provider Specialty Urology Referral Priority Routine Medications Medication SIG (Take, Route, Frequency, Duration) Notes Start Date End Date Status Bisacodyl Laxative 10 MG Rectal 3 Active pantoprazole 20 MG Delayed Release Oral Tablet ORAL *Reorder from [facility] for eRx and Interaction Alerts* 3 Active [id number] 200 ACTUAT albuterol 0.09 MG/ACTUAT Metered Dose Inhaler INTRAPULMONARY *Reorder from [facility] for eRx and Interaction Alerts* 3 Active carboxymethylcellulose sodium 5 MG/ML Ophthalmic Solution *Reorder from [facility] for eRx and Interaction Alerts* 3 Active acetaminophen 325 MG Oral Tablet [Mapap] ORAL *Reorder from [facility] for eRx and Interaction Alerts* 3 Active Sulfamethoxazole 800 MG / Trimethoprim 160 MG Oral Tablet ORAL *Reorder from [facility] for eRx and Interaction Alerts* 3 Active Aspirin 81 81 MG Oral 3 Active Tamsulosin HCl 0.4 MG Oral 3 Active Finasteride 5 MG Oral 3 Active Problems Problem Type SNOMED Code ICD Code Onset Dates Problem Status W/U Status Risk Notes Problem Adjustment disorder with mixed disturbance of emotions AND conduct (92482360) 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 Problem Insomnia (698935109) Insomnia (G47.00) Active confirmed Problem Recurrent urinary tract infection (959313211) Recurrent UTI (N39.0) Active confirmed Problem [id number] Benign prostatic hyperplasia, unspecified whether lower urinary tract symptoms present (N40.0) Active confirmed Problem Panic attack (798369308) Panic attack (F41.0) Active confirmed Problem Impulse control disorder (64047775) Impulse control disorder (F63.9) Active confirmed Problem Dementia with behavioral disturbance (disorder) (0464926052561) Unspecified dementia, unspecified severity, with other behavioral disturbance (F03.918) Active confirmed Problem Unspecified dementia, mild, with other behavioral disturbance (F03.A18) Active confirmed Encounters Encounter Location Date Provider Diagnosis Migrated_Facility 0 0 04/05/2024 Provider Migration Migrated_Facility 0 0 04/06/2024 Provider Migration [facility] [address] [place] [address] [address] 11/19/2024 Duane Duran Plan Of Treatment No Information Insurance Providers Payer Name Payer Address Payer Phone Subscriber Number Group Number Insured Name Patient Relationship to Insured Coverage Start Date Coverage End Date [place] Medicaid [address] [place] [address] [phone] [id number] Ben Ochoa Self - patient is the insured
--- OUTSIDE RECORDS SUMMARY | 2024-12-17 15:57 | XMS_ITS | Encounter Summary ---
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 Blood (Peripheral) Collection / Unknown 03/08/2021 8:49 PM CDT 03/09/2021 12:46 AM CDT us Cindy Squires NP MICROBIOLOGY - GENERAL ORDERABL ES Final Result [facility] [employer] [facility] [address] [place], [place] [address] documented in this encounter Visit Diagnoses Not on filedocumented in this encounter
== END 2024-12-17 15:31 ==
PROVIDERS: Emergency Provider Emergency Medicine; PCP Internal Medicine; Visit Provider Psychiatry & Neurology Psychiatry
DX: F91.8 Other conduct disorders (principal); N39.0 Urinary tract infection, site not specified; F03.90 Unspecified dementia, unspecified severity, without behavioral disturbance, psychotic disturbance, mood disturbance, and anxiety; E86.0 Dehydration; Z11.52 Encounter for screening for COVID-19; J44.9 Chronic obstructive pulmonary disease, unspecified; I50.30 Unspecified diastolic (congestive) heart failure
CPT/HCPCS: 36415; 71045; 80053; 80306; 80307; 81001; 84443; 85025; 87077; 87086; 87186; 87637; 93005; 96361; 96374; 99285; J0696; J7030

== ENCOUNTER → 2024-12-30 07:59 | Outpatient (BNVA) | payer MEDICAID, SELFPAY | PROVIDERS: PCP Internal Medicine; Visit Provider Nurse Practitioner Family | DX: R07.9 Chest pain, unspecified (principal) | CPT/HCPCS: 99213 ==